=== PATIENT | male | born 1950 | race Caucasian/White ===

== ENCOUNTER 2020-06-20 18:47 | Inpatient (IN) | payer MEDICARE, SELFPAY ==
[2020-06-20] VITALS (37 sets, daily range): BP systolic 59–153; BP diastolic 42–96; PULSE 82–152; RESP 17–32; TEMP 36; O2SAT 89–100
--- NOTE | ~2020-06-20 | CT_ITS ---
EXAMINATION: CT cervical spine wo con DATE: 06/20/2020 20:09 INDICATION: Neck pain after fall TECHNIQUE: Computed tomography (CT) of the cervical spine was performed without intravenous contrast. The dose-length product was 6:30 mGy-cm. Automated exposure control and iterative reconstruction jose juan hnique were employed. COMPARISON: None FINDINGS: There is loss of disc height and endplate sclerosis at all cervical spine levels. There is degenerative anterolisthesis at C2-3 and C7-T1. There is advanced multilevel uncinate and to a lesser degree facet hypertrophy. Odontoid process within normal limits. Lung apices are normal. There is ca rotid atherosclerotic change. Thyroid gland is unremarkable. No significant paraspinal soft tissue ab normality. Craniovertebral junction is unremarkable. No acute fracture or traumatic malalignment. IMPRESSION: 1. No acute fracture. 2: Severe cervical spondylosis. Reviewed, dictated and finalized at location A. NG CAR SERVER
--- NOTE | ~2020-06-20 | US_ITS ---
EXAMINATION: US carotid duplex BI EXAM DATE: 06/22/2020 14:10 INDICATION: Syncope. TECHNIQUE: Grayscale, color and pulsed Doppler images of the cervical carotid arteries were obtained . The degree of vessel stenosis is placed in one of the following categories: normal, <50% stenosis, 50-69% stenosis, >=70% stenosis but less than near-occlusion, near-occlusion, or occlusion. Note that percent stenosis relative to normal distal artery lumen diameter is indirectly measured from velocit y measurements as described by Vicente, et al. Radiology 2003; 229:340-346. There is no prior study fo r comparison. FINDINGS: RIGHT SIDE: Right common carotid artery peak systolic velocity (PSV in cm/s): 142 Right bulb/internal carotid artery peak systolic velocity (PSV in cm/s): 114 Right internal carotid artery end diastolic velocity (EDV in cm/s): 25 Right ICA/CCA peak systolic ratio: 0.8 Right external carotid artery peak systolic velocity (PSV in cm/s): 291 Right vertebral artery antegrade flow: yes There is minimal carotid bulb plaque. Velocity and Doppler waveforms in the common and internal carotid arteries is normal. LEFT SIDE: Left common carotid artery peak systolic velocity (PSV in cm/s): 72 Left bulb/internal carotid artery peak systolic velocity (PSV in cm/s): 106 Left internal carotid artery end diastolic velocity (EDV in cm/s): 39 Left ICA/CCA peak systolic ratio: 1.5 Left external carotid artery peak systolic velocity (PSV in cm/s): 310 Left vertebral artery antegrade flow: yes There is mild to moderate carotid bulb plaque. Velocity and Doppler waveforms in the common and internal carotid arteries is normal. IMPRESSION: 1. Less than 50 percent stenosis in the right internal carotid artery. 2. Less than 50 percent stenosis in the left internal carotid artery. > Reviewed, dictated and finalized at location B. UNTS COLLECTOR
--- NOTE | ~2020-06-20 | US_ITS ---
EXAMINATION: US venous doppler [facility] DATE: 06/22/2020 14:10 INDICATION: Lower limb swelling TECHNIQUE: Napoles scale images without and with compression and Doppler images of the bilateral lower e xtremity veins were obtained. COMPARISON: None FINDINGS: The bilateral peroneal veins are not evaluated due to body habitus. The right common femoral vein, profunda femoral vein, femoral vein, popliteal vein, posterior tibial veins, and greater saphenous vein are patent. The left common femoral vein, profunda femoral vein, femoral vein, popliteal vein, posterior tibial v eins, and greater saphenous vein are patent. IMPRESSION: 1. Patent bilateral lower extremity veins. No evidence of deep venous thrombosis. Bilateral peroneal veins not evaluated due to body habitus. Reviewed, dictated and finalized at location A. BASE PROGRAMMER ANALYST IMPRESSION: 1. Patent bilateral lower extremity veins. No evidence of deep venous thrombosi s. Bilateral peroneal veins not evaluated due to body habitus.
--- NOTE | ~2020-06-20 | XR_ITS ---
EXAMINATION: XR chest 1V portable INDICATION: Shortness of breath and wheezing TECHNIQUE: Portable AP chest at 0532 hours COMPARISON: 01/01/2019 FINDINGS: A mild diffuse interstitial pattern is present. Cardiomegaly is noted. There is no pleural effusion or pneumothorax. Median sternotomy wires and mediastinal surgical clips are seen, likely fro m prior coronary artery bypass grafting. IMPRESSION: 1. Cardiomegaly with likely mild pulmonary edema. Reviewed, dictated and finalized at location A. ITIES EQUIPMENT REPAIRER
--- NOTE | ~2020-06-20 | CT_ITS ---
EXAMINATION: CT brain wo con DATE: 06/20/2020 20:08 INDICATION: Status post fall down steps. Laceration to the forehead. TECHNIQUE: Computed tomography (CT) of the head was performed without intravenous contrast. The dose- length product was 605.33 mGy-cm. The mA was adjusted according to patient size. Iterative reconstruc tion technique was employed. COMPARISON: None FINDINGS: Brain parenchymal volume is normal for age. There is a chronic left lacunar infarction of t he internal capsule. There are scattered mild periventricular and subcortical white matter changes, m ost likely related to small vessel ischemic disease (microangiopathy). No ventriculomegaly or midline shift. No acute intracranial hemorrhage, infarction, mass or mass effect. No depressed skull fractur es. Paranasal sinuses and mastoids are pneumatized. IMPRESSION: 1. No acute intracranial abnormality. 2: Chronic left lacunar infarction. 3: Chronic age-related findings. Reviewed, dictated and finalized at location A. NT DEVELOPMENT DIRECTOR
--- NOTE | ~2020-06-20 | CT_ITS ---
EXAMINATION: CTA chest PE protocol DATE: 06/20/2020 21:33 SOFTWARE MAINTENANCE ENGINEER INDICATION: Shortness of breath. Elevated d-dimer. TECHNIQUE: Computed tomographic angiography (CTA) of the chest was performed with 100 mL Omnipaque-35 0 intravenous contrast. The dose-length product was 862.29 mGy-cm. Maximum intensity projection 3D-re constructions of the aorta and other arteries were constructed by the technologist on a separate work station. COMPARISON: None. FINDINGS: Study is technically adequate without evidence for pulmonary embolism. Status post median s ternotomy for CABG. No significant pleural or pericardial effusion. There is atherosclerosis of the a ruddy without evidence for aneurysm or dissection. The upper abdomen is unremarkable. There is mild em physema. No endobronchial lesions. There is dependent atelectasis. No pneumothorax. Moderate thoracic spondylosis. No acute osseous abnormality. IMPRESSION: 1. No evidence for pulmonary embolism. No acute cardiopulmonary disease. 2: Emphysema. Reviewed, dictated and finalized at location A. WARE MAINTENANCE ENGINEER
--- NOTE | ~2020-06-20 | CT_ITS ---
EXAMINATION: CT abdomen pelvis wo con DATE: 06/20/2020 22:46 INDICATION: Abdominal pain after fall TECHNIQUE: Computed tomography (CT) of the abdomen and pelvis was performed without intravenous contr ast. The dose-length product was 1345.04 mGy-cm. Automated exposure control and iterative reconstruct ion technique were employed. COMPARISON: None. FINDINGS: There is dependent atelectasis right lower lobe. Heart size normal. No significant pleural or pericardial effusion. The liver, spleen, pancreas, adrenal glands are unremarkable. There is a hyp erdense lesion posterior aspect of the right kidney measuring approximately 10 mm, possibly a hyperde nse cyst. There is residual contrast in the kidneys and ureters. Gallbladder is present. Small fat-co ntaining umbilical hernia. Nonobstructive bowel gas pattern. Normal appendix. Bilateral fat-containin g inguinal hernias. No abnormal pelvic masses or fluid collections. There is severe lumbar spondylosi s with scoliosis. Bladder is unremarkable. IMPRESSION: 1. No acute abdominal abnormality. 2: Hyperdense lesion posterior margin of the right kidney measuring 10 mm, possibly hyperdense cysts, although correlation with ultrasound is recommended. 3: Fat-containing umbilical and bilateral inguinal hernias. Reviewed, dictated and finalized at location A. IL OFFICE MANAGER IMPRESSION: 1. No acute abdominal abnormality. 2: Hyperdense lesion posterior margin of the right kidney measuring 10 mm, poss ibly hyperdense cysts, although correlation with ultrasound is recommended. 3: Fat-containing umbilical and bilateral inguinal hernias.
--- NOTE | 2020-06-20 18:56 | PC.NURSE ---
placed on 2 lpm nc
--- NOTE | 2020-06-20 18:57 | ECG_ITS ---
Measurements Intervals [place] Rate: 131 P: CO: 0 QRS: 76 QRSD: 110 T: 9 QT: 328 QTc: 485 Interpretive Statements ATRIAL FIBRILLATION WITH RAPID VENTRICULAR RESPONSE DELAYED PRECORDIAL R/S TRANSITION BORDERLINE ST-T WAVE ABNORMALITY- INFERIOR LEADS BASELINE ARTIFACT- I, II, III, AVR, AVL, AVF, V4-V6 ABNORMAL ECG Electronically Signed On 06-20-2020 20:15:48 SCRAP COLLECTOR by Andrey Newman D.O.
[2020-06-20] MEDS: methylPREDNISolone SOD SUCC 125 MG VIAL IV PUSH (19:01)
--- NOTE | 2020-06-20 19:01 | ED.SOB ---
HPI - SOB/Dyspnea General Chief Complaint: Syncope Stated Complaint: fell down 8 steps, hematoma top of heads Time Seen by Provider: 06/20/20 18:51 Source: patient Mode of arrival: EMS Limitations: no limitations History of Present Illness HPI Narrative: Patient is a 70-year-old male brought in respiratory distress by EMS. Patient states that he fell down the stairs approximately 8 flights of stairs complaining of mild head pain otherwise denies any neck, chest, back, abdomen, pelvis, hip or any extremity pain/injury. Patient states that he has a history of COPD, not on home oxygen, was short of breath prior to his fall, patient unsure if he had a syncopal episode. Related Data Home Medications Medication Instructions Recorded Confirmed triamterene 75 1 tablet PO DAILY 03/15/19 mg-hydrochlorothiazide 50 mg tablet Allergies Allergy/AdvReac Type Severity Reaction Status Date / Time No Known Allergies Allergy Verified 06/20/20 18:58 Review of Systems Review of Systems: All systems reviewed & are unremarkable except as noted in HPI and below Constitutional: Constitutional: Denies body ache(s), Denies chills, Denies excessive sweating, Denies fatigue, Denies fever(s), Denies headache(s), Denies lethargy, Denies malaise, Denies weakness and Denies weight loss Eyes: Eyes: Denies blurry vision, Denies change in vision and Denies loss of vision ENT: Denies dizziness, Denies ear discharge, Denies headache(s), Denies lip swelling, Denies epistaxis, Denies nasal congestion, Denies neck pain, Denies throat swelling and Denies tongue swelling Cardiovascular: Cardiovascular: Denies chest pain, Denies chest pain at rest, Denies chest pain with activity, Denies diaphoresis, Denies rapid heart rate, Denies edema, Denies irregular heart rhythm, Denies lightheadedness and Denies palpitations Respiratory: Respiratory: Denies chest congestion and Denies hemoptysis Gastrointestinal: Gastrointestinal: Denies abdominal pain, Denies melena, Denies hematochezia, Denies diarrhea, Denies nausea, Denies vomiting and Denies hematemesis Musculoskeletal: Musculoskeletal: Denies abnormal gait, Denies deformity, Denies joint swelling, Denies limited range of motion, Denies neck pain and Denies numbness Neurologic: Denies Abnormal speech present, Denies abnormal gait, Denies confusion, Denies dizziness, Denies headache(s), Denies focal weakness, Denies loss of vision, Denies numbness, Denies Other visual disturbances, Denies Sensory deficit (Neuro) and Denies weakness Psychiatric: Psychiatric: Denies confusion, Denies depression, Denies auditory hallucinations, Denies homicidal ideation and Denies suicidal ideation Endocrine: Endocrine: Denies cold intolerance, Denies excessive sweating, Denies fatigue, Denies heat intolerance and Denies palpitations Hematologic/Lymphatic: Hematologic/Lymphatic: Denies easy bleeding and Denies easy bruising Allergic/Immunologic: Allergic/Immunologic: Denies lip swelling, Denies throat swelling and Denies tongue swelling PMFSH Social History Social History Gender identity (if verbalized by the patient): Male Comments Past medical history: COPD, hypertension, hyperlipidemia, coronary disease, CABG Social history: Ex-smoker, stopped years ago, no EtOH or drug use. Family history: Noncontributory Exam Const: General: cooperative, well developed, alert and awake; No confusion Orientation/consciousness: oriented to person, oriented to place, oriented to time, patient oriented x3 and No confusion Limitations: no limitations Other: Severe distress, ill-appearing HENMT: Ears: hearing grossly normal bilaterally, TM normal on the right and TM normal on the left General nose exam: Normal external nose present, Normal nares present and No nasal discharge present Mouth: Yes Normal oral and palatal mucosa present, Yes lip normal, Yes tongue normal and Yes oropharynx no
[2020-06-20] MEDS: ALBUTEROL SULFATE NEB 2.5 MG/0.5 ML INH 5 MG INHALATION (19:15)
[2020-06-20] MEDS: IPRATROPIUM BR 0.02% INH SOLN 0.5 MG/2.5 ML VIAL INHALATION (19:15)
[2020-06-20 19:20] LABS: Base Excess ABG -0.9 mEq/l (+/-2.0); Carboxyhemoglobin 0.5 % THb (0-2.0); Fractional Inspired Oxygen 24 %; HCO3 ABG 25.1 mEq/l (22.0-26.0); Methemoglobin ABG 0.3 %THb (0-1.5); Oxygen Content ABG 16.5 %vol (16.0-22.0); Oxygen Saturation ABG 96.2 % (95.0-100.0); Oxyhemoglobin 94.7 % THb (90.0-100.0); PCO2 ABG 46.7 mmHg (35.0-45.0); PO2 ABG 87.5 mmHg (80.0-100.0); PO2 FiO2 Ratio Arterial Blood 3.65 %; Reduced Hemoglobin 4.5 %THb (0-5.0); Total Hemoglobin 12.3 g/dL (12.0-18.0); pH ABG 7.348 (7.350-7.450)
[2020-06-20 19:26] LABS: Device NASAL CANNULA; Modified Allen's Test Pass; Site Drawn RIGHT RADIAL
[2020-06-20 19:56] LABS: Basophils Absolute Auto 0.1 K/mm3 (0.0-0.1); Basophils Percent Auto 0.5 % (0.2-1.2); Eosinophils Absolute Auto 1.1 K/mm3 (0-0.3); Eosinophils Percent Auto 8.5 % (0-4.4); Hemoglobin 11.9 g/dL (14.0-18.0); Immature Granulocyte Absolute 0.05 K/mm3 (0.00-0.031); Immature Granulocyte Percent A 0.4 % (0-0.5); Immature Platelet Fraction Pct 5.3 % (0.9-11.2); Lymphocytes Absolute Auto 1.01 K/mm3 (0.9-3.2); Lymphocytes Percent Auto 7.7 % (18.3-44.2); Mean Corpuscular HGB Conc 33.1 g/dl (32-36); Mean Corpuscular Hemoglobin 28.5 pg (26-34); Mean Corpuscular Volume 86.1 fl (80-100); Monocytes Absolute Auto 0.7 K/mm3 (0.1-0.6); Monocytes Percent Auto 5.1 % (2.6-8.5); Neutrophils Absolute Auto 10.3 K/mm3 (1.3-6.7); Neutrophils Percent Auto 77.8 % (45.5-73.1); Platelet Count Result 326 k/mm3 (150-375); Red Blood Count 4.18 M/mm3 (4.6-6.20); Red Cell Distribution Width 15.1 % (11.5-14.5); White Blood Count 13.2 K/mm3 (4.5-10.0)
[2020-06-20 20:06] LABS: Lactic Acid Reflex 1.9 mmol/L (0.7-2.1)
[2020-06-20 20:07] LABS: Alanine Aminotransferase 24 U/L (4-50); Albumin Level 3.9 g/dL (3.5-5.1); Alkaline Phosphatase 108 U/L (38-126); Anion Gap 8 mmol/L (8-16); Aspartate Amino Transferase 56 U/L (17-59); Bilirubin,Total 1.4 mg/dL (0.2-1.3); Blood Urea Nitrogen 9 mg/dL (9-20); Calcium 8.4 mg/dL (8.4-10.2); Carbon Dioxide 29 mmol/L (22-30); Chloride 90 mmol/L (98-107); Estimated CRCL calculation 75 ml/min; Estimated Glomerular Filt Rate > 60; Glucose 158 mg/dL (75-110); Potassium 3.7 mmol/L (3.4-5.0); Prothrombin Time 13.9 Seconds (11.1-14.7); Sodium 127 mmol/L (137-145)
[2020-06-20 20:08] LABS: Partial Thromboplastin Time 35.9 SECONDS (22.3-36.8)
[2020-06-20 20:10] LABS: D Dimer 1.71 ug/mL (<0.48)
[2020-06-20 20:29] LABS: NT Pro B Type Natriuretic Pept 299 PG/ML (5-100)
[2020-06-20] MEDS: LACTATED RINGERS 1,000 ML 999 ML IV CONT ×2 (20:44→22:14)
[2020-06-20] MEDS: TETANUS,DIPHTHERIA,AC PERTUSSIS ADULT (0.5 ML) BOOSTRIX IM (22:13)
[2020-06-20] MEDS: dilTIAZem HCl INJ 25 MG/5 ML VIAL 20 MG IV PUSH (22:13)
[2020-06-20] MEDS: ASPIRIN 325 MG ENTERIC TABLET PO (22:14)
[2020-06-21] VITALS (30 sets, daily range): BP systolic 90–169; BP diastolic 44–104; PULSE 68–104; RESP 18–28; TEMP 35.6–36.7; O2SAT 91–99; BMI 36.8
--- NOTE | 2020-06-21 | ECHO_ITS ---
Patient Info Name: Zack Dai Age: 70 years : 1950 Gender: Male Ht: 71 in Wt: 264 lbs BSA: 2.49 m2 HR: 92 bpm BP: 97 / 59 mmHg Heart Rhythm: Sinus Rhythm Exam Date: 06/21/2020 11:10 AM Exam Location: [facility] [place] Patient Status: Inpatient Admit Date: 06/20/2020 Staff Ordering Physician: Tory Bhat DO Catering Barista: Christian Curiel RDCS, RT Attending Provider: Javier Bai MD Referring Physician: Home SHAIKH; Exam Type: CA echo dop color flow w con Study Info Indications I50.9 - Heart failure, unspecified R55 - Syncope and collapse Complete two-dimensional, color flow and Doppler transthoracic echocardiogram is performed with contrast to opacify the left ventricle and to improve the deliniation of the left ventricle endocardial borders. Summary 1. Left ventricular chamber dimension is normal. 2. Left ventricular systolic function is normal, estimated at 60-65%. 3. There is mildly increased left ventricular wall thickness. 4. The left ventricular diastolic function is grade I diastolic dysfunction. 5. Left atrial chamber dimension is mildly enlarged. 6. Right atrial chamber dimension is mildly enlarged. 7. There is mild tricuspid valve regurgitation. 8. Mild pulmonary hypertension, estimated pulmonary arterial systolic pressure is 40 mmHg. Left Ventricle Left ventricular chamber dimension is normal. Left ventricular systolic function is normal, estimated at 60-65%. There is mildly increased left ventricular wall thickness. The left ventricular diastolic function is grade I diastolic dysfunction. Right Ventricle Right ventricular chamber dimension is normal. Right ventricular systolic function is normal. Left Atria Left atrial chamber dimension is mildly enlarged. Right Atria Right atrial chamber dimension is mildly enlarged. Atrial Septum Intact interatrial septum visualized by color flow imaging. Aortic Valve The aortic valve is trileaflet. There is moderate aortic valve sclerosis. There is no aortic valve stenosis. There is trace aortic valve regurgitation. Pulmonic Valve The pulmonic valve is normal. There is no pulmonic valve stenosis. There is trace pulmonic regurgitation. Mitral Valve The mitral valve has calcified annulus. There is no mitral valve stenosis. There is trace mitral valve regurgitation. Tricuspid Valve The tricuspid valve leaflets are normal. There is no significant tricuspid valve stenosis. There is mild tricuspid valve regurgitation. Mild pulmonary hypertension, estimated pulmonary arterial systolic pressure is 40 mmHg. Pericardium/Pleural The pericardium appears normal. There is no pericardial effusion. Inferior Vena Cava Dilated inferior vena cava with >50% collapse upon inspiration consistent with elevated right atrial pressure, 10 mmHg. Aorta The aortic root size at the sinus of Valsalva is normal. The prox ascending aorta size is normal. Left Ventricular Outflow Tract Name Value Normal LVOT 2D LVOT Diameter 2.02 cm LVOT Doppler LVOT Peak Gradient 3 mmHg LVOT Mean Gradient
[2020-06-21 01:00] LABS: Troponin I 0.193 ng/mL (0.000-0.034)
[2020-06-21] MEDS: LEVALBUTEROL NEB 1.25 MG/3 ML 0.63 MG INHALATION (02:07)
[2020-06-21] MEDS: IPRATROPIUM BR 0.02% INH SOLN 0.5 MG/2.5 ML VIAL INHALATION ×4 (02:07→20:24)
--- NOTE | 2020-06-21 02:09 | ADMGEN ---
This patient, Zack Dai, was admitted to IMU Room 200-01. Patient/family oriented to hospital policies and general routines including ID bracelet, bed and alarms, visiting hours, pain management, procedures, bathroom and other care routines, personal items, smoking policy, room service/diet, and visiting hours. Information on how to activate the Rapid Response Team has been discussed. Patient/Family are encouraged to report perceived risks to care and to ask questions if they do not understand what they are told or what they should do.
--- NOTE | 2020-06-21 03:57 | PM.IMHP ---
H&P: HPI History of Present Illness Date/Time: 06/21/20 03:57 Chief Complaint: Syncope Narrative: Zack Dai is a 70 year old male with a past medical history of coronary artery disease, atrial fibrillation, COPD and systolic CHF who presented to the ER after syncopal event resulting in fall down 6-8 stairs. He states that he lives in a split-level home. He can see his TV from the top of the stairs in the living room. He was leaning against the leads at the top of the stairs when he suddenly lost consciousness. He did not have any prodrome. He reports that he woke up quickly after the syncopal event and he was lying at the bottom of the stairs in his head had went through the drywall. He denies any headache or visual changes. He reports that prior to the syncopal event had been feeling ill for approximately 10 days. Reports that he received is 1st COVID vaccine approximately 10 or 11 days ago. That day or the next day he began feeling short of breath in attributed it to the vaccine. He had markedly increased wheezing. He had increased cough that was productive of white to yellow sputum production. He denied any fevers or chills. He denied chest pain, palpitations or orthopnea. He does have chronic lower extremity swelling in his swelling has been relatively stable. His swelling is currently just to his feet and ankles. He reports the swelling is significantly improved compared to his swelling following his bypass procedure. He reports that over the last 6 months he has gained approximately 25 lb. He has been trying to stay home so that he did not get exposed to COVID-19. The patient reports that he uses p.r.n. of uterine all inhalers at home that have not been helping his symptoms. He is not on any long-acting controller medications. He used to follow with Dr. Schultz but has not seen him in many years. At the time of his CABG he was evaluated by the contracting engineer at [facility] and he was instructed to finish what inhalers he had and follow-up with them as outpatient. He failed to follow-up with the contracting engineer. He is now interested in establishing care with pulmonology at this facility since his primary care physician is nearby. The patient reports that he was tried on CPAP in the past and he did not tolerate it. He states that he is supposed to follow-up with Dr. Hill today for routine follow-up regarding his heart disease. Review of Systems Review of Systems: Narrative: 12 systems were reviewed with pertinent positives and negatives per HPI. Except as documented in the HPI, all other systems were reviewed and are negative. [facility] Past Medical History Medical History Alcohol abuse Chronic hypercapnic respiratory failure COPD (chronic obstructive pulmonary disease) Coronary artery disease Followed by Dr. Hill Essential hypertension History of ventricular fibrillation VFib arrest during cardiac catheterization December 2018 and subsequent cardiogenic shock cardiac in her aortic balloon pump emergent echo demonstrating EF of 35% Hypercholesterolemia Paroxysmal atrial fibrillation STEMI (ST elevation myocardial infarction) Tobacco use Surgical History Surgical History (Updated 06/21/20 @ 04:07 by Tory Bhat DO) History of cardiac catheterization December 2018: High-grade stenosis of left main coronary, moderate to severe diffuse disease of proximal to mid LAD, high-grade eccentric ulcerated plaque in the mid segment of the dominant RCA. During catheterization the patient went into VFib arrest much shock x1 Hx of CABG CABG with [place] to LAD, left radial artery to OM 2, reverse saphenous vein graft 2 p.o. be of RCA performed by Dr. Worrell December 2019 at [facility]. Family History Family History (Updated 06/21/20 @ 05:07 by Tory Bhat DO) Mother Bone cancer Father Alcoholism Sibling Healthy adult male 62 years old Social History Social History (
[2020-06-21 04:52] LABS: Hematocrit 32.9 % (42.0-52.0); Hemoglobin 10.9 g/dL (14.0-18.0); Mean Corpuscular HGB Conc 33.1 g/dl (32-36); Mean Corpuscular Hemoglobin 28.7 pg (26-34); Mean Corpuscular Volume 86.6 fl (80-100); Platelet Count Result 307 k/mm3 (150-375); Red Cell Distribution Width 15.2 % (11.5-14.5); White Blood Count 11.5 K/mm3 (4.5-10.0)
[2020-06-21 05:07] LABS: Anion Gap 4 mmol/L (8-16); Blood Urea Nitrogen 8 mg/dL (9-20); Calcium 8.1 mg/dL (8.4-10.2); Carbon Dioxide 32 mmol/L (22-30); Chloride 93 mmol/L (98-107); Estimated CRCL calculation 91 ml/min; Estimated Glomerular Filt Rate > 60; Glucose 171 mg/dL (75-110); Magnesium 1.8 mg/dL (1.6-2.3); Potassium 4.3 mmol/L (3.4-5.0); Sodium 129 mmol/L (137-145)
[2020-06-21 05:25] LABS: Troponin I 0.261 ng/mL (0.000-0.034)
[2020-06-21] MEDS: methylPREDNISolone SOD SUCC 125 MG VIAL 60 MG IV PUSH ×2 (06:32→14:06)
[2020-06-21] MEDS: LOSARTAN POTASSIUM 25 MG TABLET PO (09:36)
[2020-06-21] MEDS: ATORVASTATIN 40 MG TABLET PO (09:36)
[2020-06-21] MEDS: METOPROLOL SUCCINATE EXT REL 25 MG TABCR PO (09:37)
[2020-06-21] MEDS: POTASSIUM CHLORIDE 20 MEQ TABLET.ER PO (09:37)
[2020-06-21] MEDS: PERFLUTREN LIPID MICROSPHERES 1.5 ML VIAL DILUTED TO 10 ML TOTAL VOLUME IV PUSH (11:26)
--- NOTE | 2020-06-21 13:56 | PM.CNCAR ---
Assessment and Plan Assessment and plan (1) Syncope: Qualifiers: Syncope type: unspecified Qualified Code(s): R55 - Syncope and collapse Code(s): R55 - Syncope and collapse Status: Acute Assessment and Plan: Will continue telemetry monitoring. 2D echocardiogram Doppler is ordered and will be reviewed. Orthostatic blood pressure be ordered. Will repeat EKG now he is in sinus rhythm. Certainly his symptoms are worrisome for arrhythmogenic in etiology. May very well need electrophysiology evaluation (2) Elevated troponin: Code(s): R77.8 - Other specified abnormalities of plasma proteins Status: Acute Assessment and Plan: Uncertain if this is related to type 2 infarction if either from the etiology of his syncope or from his atrial fibrillation with rapid ventricular response but regardless his troponin does continue rise. Repeated EKG as well as a troponin now. Will keep him NPO after midnight for a coronary angiogram/graft tomorrow. (3) Atrial fibrillation with RVR: Code(s): I48.91 - Unspecified atrial fibrillation Status: Resolved Assessment and Plan: In sinus rhythm at this point. He does have a chads Vasc score which would support long-term anticoagulation. Given his syncopal episodes though I am hesitant to start him on anticoagulation at this point till his syncope is further clarified. Furosemide 20 mg IV x1 (4) Head injury, acute: Qualifiers: Encounter type: initial encounter Qualified Code(s): S09.90XA - Unspecified injury of head, initial encounter Code(s): S09.90XA - Unspecified injury of head, initial encounter Status: Acute (5) CAD (coronary artery disease): Code(s): I25.10 - Atherosclerotic heart disease of [place] coronary artery without angina pectoris Status: Acute Assessment and Plan: History 3 vessel CABG. Will start aspirin 81 mg per day. Continue statin, beta-rosita. (6) Chronic obstructive pulmonary disease with (acute) exacerbation: Code(s): J44.1 - Chronic obstructive pulmonary disease with (acute) exacerbation Status: Acute Assessment and Plan: Will consult pulmonology (7) Hyponatremia: Code(s): E87.1 - Hypo-osmolality and hyponatremia Status: Acute Assessment and Plan: Repeat basic metabolic panel tomorrow (8) Hypomagnesemia: Code(s): E83.42 - Hypomagnesemia Status: Acute Assessment and Plan: Will give 2 g of IV magnesium x1 (9) Hyperlipidemia: Code(s): E78.5 - Hyperlipidemia, unspecified Status: Acute Assessment and Plan: Continue statin (10) Essential hypertension: Code(s): I10 - Essential (primary) hypertension Status: Acute Assessment and Plan: Continue losartan and metoprolol (11) Ischemic cardiomyopathy: Code(s): I25.5 - Ischemic cardiomyopathy Status: Acute Assessment and Plan: Repeat 2D echocardiogram Doppler History of Present Illness History of Present Illness Consult date/time: 06/21/20 13:56 Requesting physician: Tory Bhat DO Consult reason: atrial fibrillation and Other (Syncope) Reason For Visit: Acute Respiratory Failure with Hypoxia, Narrative: Date of service 06/21/2020 History: Patient is 70-year-old male has history of multivessel CAD. He has a history of ST-elevation myocardial infarction successfully resuscitated VF cardiac arrest in the setting of acute [place]. He also had a CABG x3 with a [place] to the LAD, radial artery graft to OM2 and SVG to are PL. He did have postoperative atrial fibrillation requiring cardioversion. This was in 2019. Ejection fraction is last estimated between 45 and 50%. Had last evaluation he was taken off of his Eliquis. He was supposed to see Dr. Hill today but he did not make that appointment because he passed out and was hospitalized. Patient came to the hospital following a syncopal episode. He li
--- NOTE | 2020-06-21 14:10 | ECG_ITS ---
Measurements Intervals [place] Rate: 95 P: 74 [place]: 219 QRS: 74 QRSD: 101 T: 53 QT: 374 QTc: 471 Interpretive Statements SINUS RHYTHM WITH FIRST DEGREE AV BLOCK VENTRICULAR PREMATURE COMPLEX BASELINE ARTIFACT- I, II, III, AVR, AVL, AVF, V4-V5 ABNORMAL ECG Electronically Signed On 06-21-2020 15:44:23 [employer] CAR[employer] by Andrey Newman D.O.
[2020-06-21] MEDS: FUROSEMIDE INJ 40 MG/4 ML VIAL 20 MG IV PUSH (14:24)
[2020-06-21] MEDS: MAGNESIUM SULF 2 GM/WATER 50ML 2 GM/50 ML BAG IVPB (14:24)
--- NOTE | 2020-06-21 14:37 | PM.IMPN ---
Progress Note: A&P Assessment and Plan (1) Syncope: Qualifiers: Syncope type: unspecified Qualified Code(s): R55 - Syncope and collapse Code(s): R55 - Syncope and collapse Status: Acute Assessment and Plan: on caridac telemetry. hx of vfib arrest during cardiac catheterization in the past in dec 2018, cardiogenic shock needig aortic balloon pump emergent echo demonstrating EF of 35% at that time. troponins elevated suggestive of NSTEMI. cardiology on board for further workup. CTA negative for PE. (2) Head injury, acute: Qualifiers: Encounter type: initial encounter Qualified Code(s): S09.90XA - Unspecified injury of head, initial encounter Code(s): S09.90XA - Unspecified injury of head, initial encounter Status: Acute Assessment and Plan: ct head negative for any internal injury. continue to monitor. (3) Fall down stairs: Qualifiers: Encounter type: initial encounter Qualified Code(s): W10.8XXA - Fall (on) (from) other stairs and steps, initial encounter Code(s): W10.8XXA - Fall (on) (from) other stairs and steps, initial encounter Status: Acute Assessment and Plan: likely from syncope as delineated above. (4) Atrial fibrillation with RVR: Code(s): I48.91 - Unspecified atrial fibrillation Status: Resolved Assessment and Plan: spontaneously resolved with one dose of cardizem. curretly in nsr (5) Chronic obstructive pulmonary disease with (acute) exacerbation: Code(s): J44.1 - Chronic obstructive pulmonary disease with (acute) exacerbation Status: Acute Assessment and Plan: steroid. also with acute exaceration. on solumedrol and duonebs. pulmonary consutled. spoke with Dr. Trammell. (6) Elevated troponin: Code(s): R77.8 - Other specified abnormalities of plasma proteins Status: Acute Assessment and Plan: serial CE reviewed. going for cardiac cath in am. (7) Hyponatremia: Code(s): E87.1 - Hypo-osmolality and hyponatremia Status: Acute Assessment and Plan: mild, stable. continue to monitor. (8) Chronic hypercapnic respiratory failure: Code(s): J96.12 - Chronic respiratory failure with hypercapnia Status: Acute Assessment and Plan: continue oxygen supplementation. (9) CAD (coronary artery disease): Code(s): I25.10 - Atherosclerotic heart disease of [place] coronary artery without angina pectoris Status: Acute Assessment and Plan: s/p CABG in 2019 (10) Essential hypertension: Code(s): I10 - Essential (primary) hypertension Status: Acute (11) Hyperlipidemia: Code(s): E78.5 - Hyperlipidemia, unspecified Status: Acute Subjective Date/time seen: 06/21/20 14:37 Interval history: no overnight events. he feels okay. he fell and has been falling quite often since past few weeks now. fall suggestive of syncope. no chest pain. has underlying hx of COPD. no previous workup for sleep apnea. Review of Systems Constitutional: Constitutional: Reports fatigue, Reports lethargy and Reports weakness Eyes: Eyes: Denies blurry vision and Denies photophobia ENT: Denies nasal congestion and Denies nasal discharge Cardiovascular: Cardiovascular: Denies chest pain, Denies diaphoresis, Denies leg edema, Denies lightheadedness and Denies palpitations Respiratory: Respiratory: Denies cough, Denies hemoptysis and Reports dyspnea Gastrointestinal: Gastrointestinal: Denies abdominal pain, Denies constipation, Denies diarrhea, Denies nausea and Denies vomiting Genitourinary: Genitourinary: Denies dysuria and Denies urinary frequency Musculoskeletal: Musculoskeletal: Denies back pain and Denies neck pain Integumentary/Breasts: Skin/Breast: Denies dry skin and Denies rash Neurologic: Denies Abnormal speech present and Denies confusion Psychiatric: Psychiatric: Denies anxiety and Denies behavioral
[2020-06-21 15:16] LABS: Troponin I 0.205 ng/mL (0.000-0.034)
--- NOTE | 2020-06-21 16:53 | PM.CNPUL ---
Assessment and Plan Assessment and plan (1) Chronic obstructive pulmonary disease with (acute) exacerbation: Code(s): J44.1 - Chronic obstructive pulmonary disease with (acute) exacerbation Status: Acute Assessment and Plan: Patient with H/O tobacco use and carries a diagnosis of COPD and has mild paraseptal emphysema on his CT scan of the chest this admission. Currently patient has improved on Solu-Medrol, leave albuterol, ipratropium, ceftriaxone and azithromycin. Patient had minimal hypercarbia on his blood gas. CT angiogram was negative for PE I will change his Solu-Medrol to 40 IV q.6, I will continue his leave albuterol and ipratropium nebulizers at q.6 hours, I will continue azithromycin at this point for tracheobronchitis (no evidence of pneumonia on CTA). . Patient scheduled to have cardiac cath on 06/22/20. Will follow with you History of Present Illness History of Present Illness Consult date: 06/21/20 Requesting physician: Javier Bai MD Reason for consult: COPD Chief complaint: Acute Respiratory Failure with Hypoxia, Narrative: This is a new pulmonary consult for COPD exacerbation. This is a 70-year-old man with a history of coronary artery disease status post CABG, COPD, hypertension, paroxysmal atrial fibrillation Who presented to the emergency room on 06/20/2020 with syncope And AFib with rapid ventricular response. Patient tells me that he has been more short of breath over the last month with intermittent wheezes, change in his phlegm color from from white to yellow, increasing dyspnea on exertion such that he now can only walk about 30 ft. He has also noted increased swelling of the lower extremities. He denies any fever or chills at this point. P patient's serum bicarb was 29 and patient had a blood gas on 1 L nasal cannula with a blood gas of 7.35/47/87. Patient had a CT angiogram of the chest that was negative for pulmonary embolism or any acute pulmonary disease. He did have mild paraseptal emphysema in the apices. Patient was noted to be wheezing and was treated for a COPD exacerbation with bronchodilators, steroids, antibiotics. Patient's troponins peaked at 0.261 and he is scheduled for an cardiac angiogram on 06/22/2020. Regarding patient's COPD patient has a history of tobacco use from -2018 at 1 pack per day, 52 pack years. Patient denies secondhand smoke exposure. 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 Patient tells me he was diagnosed with COPD approximately 30 years ago and has been on inhalers off and on since then. I have no PFTs at this time. Patient did have a CT angiogram of the chest this admission on 06/20/2020 that demonstrated mild paraseptal emphysema. Patient was on Advair and Spiriva up until 1 year ago when he self can't discontinued those because he was feeling better. He has continued to take his albuterol anywhere from 0 to 4 times a day p.r.n. for shortness of breath. Summary 1. Left ventricular chamber dimension is normal. 2. Left ventricular systolic function is normal, estimated at 60-65%. 3. There is mildly increased left ventricular wall thickness. 4. The left ventricular diastolic function is grade I diastolic dysfunction. 5. Left atrial chamber dimension is mildly enlarged. 6. Right atrial chamber dimension is mildly enlarged. 7. There is mild tricuspid valve regurgitation. 8. Mild pulmonary hypertension, estimated pulmonary arterial systolic pressure is 40 mmHg. 06/21 Patient states that he has improved with current treatment and states that he is now 50% back to normal. Patient has continued inspiratory and expiratory wheezes on exam today. Patient is on 2 L nasal cannula saturations 97%. Review of Systems Review of Systems: All systems reviewed & are unremarkable except as noted in HPI and below Eyes: Eyes: Reports no additional eye
[2020-06-21] MEDS: methylPREDNISolone SOD SUCC 40 MG VIAL IV PUSH ×2 (18:11→23:02)
[2020-06-21 18:39] LABS: Creatinine Urine 56.8 mg/dL
[2020-06-21 18:40] LABS: Sodium Urine Random 12 meq/L
[2020-06-22] VITALS (27 sets, daily range): BP systolic 77–167; BP diastolic 45–73; PULSE 78–100; RESP 18–24; TEMP 36.1–36.6; O2SAT 92–98
[2020-06-22] MEDS: IPRATROPIUM BR 0.02% INH SOLN 0.5 MG/2.5 ML VIAL INHALATION ×4 (02:32→21:08)
[2020-06-22 04:52] LABS: Basophils Percent Auto 0.1 % (0.2-1.2); Hematocrit 32.1 % (42.0-52.0); Hemoglobin 10.3 g/dL (14.0-18.0); Immature Granulocyte Absolute 0.09 K/mm3 (0.00-0.031); Immature Granulocyte Percent A 0.6 % (0-0.5); Lymphocytes Absolute Auto 0.77 K/mm3 (0.9-3.2); Lymphocytes Percent Auto 4.9 % (18.3-44.2); Mean Corpuscular HGB Conc 32.1 g/dl (32-36); Mean Corpuscular Hemoglobin 27.8 pg (26-34); Mean Corpuscular Volume 86.8 fl (80-100); Mean Platelet Volume 10.2 fl (7.4-10.4); Monocytes Absolute Auto 0.6 K/mm3 (0.1-0.6); Monocytes Percent Auto 3.5 % (2.6-8.5); Neutrophils Absolute Auto 14.4 K/mm3 (1.3-6.7); Neutrophils Percent Auto 90.9 % (45.5-73.1); Platelet Count Result 355 k/mm3 (150-375); Red Cell Distribution Width 15.4 % (11.5-14.5); White Blood Count 15.8 K/mm3 (4.5-10.0)
[2020-06-22 05:27] LABS: Anion Gap 8 mmol/L (8-16); Blood Urea Nitrogen 14 mg/dL (9-20); Calcium 8.4 mg/dL (8.4-10.2); Carbon Dioxide 29 mmol/L (22-30); Chloride 91 mmol/L (98-107); Estimated CRCL calculation 91 ml/min; Estimated Glomerular Filt Rate > 60; Glucose 154 mg/dL (75-110); Sodium 128 mmol/L (137-145)
[2020-06-22] MEDS: methylPREDNISolone SOD SUCC 40 MG VIAL IV PUSH ×4 (06:04→23:52)
[2020-06-22] MEDS: POTASSIUM CHLORIDE 20 MEQ TABLET.ER PO (08:31)
[2020-06-22] MEDS: ASPIRIN 81 MG ENTERIC TABLET PO (08:31)
[2020-06-22] MEDS: METOPROLOL SUCCINATE EXT REL 25 MG TABCR PO (08:32)
[2020-06-22] MEDS: ATORVASTATIN 40 MG TABLET PO (08:32)
[2020-06-22] MEDS: LOSARTAN POTASSIUM 25 MG TABLET PO (08:32)
--- NOTE | 2020-06-22 10:34 | PM.PNPUL ---
Progress Note: A&P Assessment and Plan (1) Chronic obstructive pulmonary disease with (acute) exacerbation: Code(s): J44.1 - Chronic obstructive pulmonary disease with (acute) exacerbation Status: Acute Assessment and Plan: 06/21 Patient with H/O tobacco use (52 PY) and carries a diagnosis of COPD and has mild paraseptal emphysema on his CTA scan of the chest on 06/20/2020, no PE. Baseline LEE at 30 feet, self DC advair and spireva 1 year ago and takes rescue albuterol 3-4 X day. Currently admitted with syncope, Afib/RVR and COPD exacerbation and patient has improved on Solu-Medrol, levlbuterol, ipratropium, ceftriaxone and azithromycin. Patient had minimal hypercarbia on his blood gas (1 L nasal cannula with a blood gas of 7.35/47/87). BNP 299. D dimer 1.[address] angiogram was negative for PE. I will change his Solu-Medrol to 40 IV q.6, I will continue his levalbuterol and ipratropium nebulizers at q.6 hours, I will continue azithromycin at this point for tracheobronchitis (no evidence of pneumonia on CTA). Patient with H/O CABG and positive trop (peak 2.61) scheduled to have cardiac cath on 06/22/20. 06/22 Continue Solu-Medrol to 40 IV q.6, levalbuterol 1.25 mg Q 6 neb (AFIB/RVR on admit) and ipratropium 0.5 mg nebulizers at q.6 hours, I will continue azithromycin (day 3). Possible cath later today. Will follow with you Subjective Date/time seen: 06/22/20 10:34 Interval history: Narrative: This is a new pulmonary consult for COPD exacerbation. This is a 70-year-old man with a history of coronary artery disease status post CABG, COPD, hypertension, paroxysmal atrial fibrillation Who presented to the emergency room on 06/20/2020 with syncope And AFib with rapid ventricular response. Patient tells me that he has been more short of breath over the last month with intermittent wheezes, change in his phlegm color from from white to yellow, increasing dyspnea on exertion such that he now can only walk about 30 ft. He has also noted increased swelling of the lower extremities. He denies any fever or chills at this point. P patient's serum bicarb was 29 and patient had a blood gas on 1 L nasal cannula with a blood gas of 7.35/47/87. Patient had a CT angiogram of the chest that was negative for pulmonary embolism or any acute pulmonary disease. He did have mild paraseptal emphysema in the apices. Patient was noted to be wheezing and was treated for a COPD exacerbation with bronchodilators, solumedrol, ceftriaxone and azithro antibiotics. Patient's troponins peaked at 0.261 and he is scheduled for an cardiac angiogram on 06/22/2020. Regarding patient's COPD patient has a history of tobacco use from -2018 at 1 pack per day, 52 pack years. Patient denies secondhand smoke exposure. 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 Patient tells me he was diagnosed with COPD approximately 30 years ago and has been on inhalers off and on since then. I have no PFTs at this time. Patient did have a CT angiogram of the chest this admission on 06/20/2020 that demonstrated mild paraseptal emphysema. Patient was on Advair and Spiriva up until 1 year ago when he self can't discontinued those because he was feeling better. He has continued to take his albuterol anywhere from 0 to 4 times a day p.r.n. for shortness of breath. Echo 06/21/20 Summary 1. Left ventricular chamber dimension is normal. 2. Left ventricular systolic function is normal, estimated at 60-65%. 3. There is mildly increased left ventricular wall thickness. 4. The left ventricular diastolic function is grade I diastolic dysfunction. 5. Left atrial chamber dimension is mildly enlarged. 6. Right atrial chamber dimension is mildly enlarged. 7. There is mild tricuspid valve regurgitation. 8. Mild pulmonary hypertension, estimated pulmonary arterial systolic pressure is 40 mmHg.
--- NOTE | 2020-06-22 13:31 | PM.IMPN ---
Progress Note: A&P Assessment and Plan (1) Syncope: Qualifiers: Syncope type: unspecified Qualified Code(s): R55 - Syncope and collapse Code(s): R55 - Syncope and collapse Status: Acute Assessment and Plan: on caridac telemetry. hx of vfib arrest during cardiac catheterization in the past in dec 2018, cardiogenic shock needig aortic balloon pump emergent echo demonstrating EF of 35% at that time. troponins elevated suggestive of NSTEMI. cardiology on board for further workup. CTA negative for PE. Patient has no syncopal episode over the last 24 hours. Workup is in progress. Cardiology evaluation noted (2) Head injury, acute: Qualifiers: Encounter type: initial encounter Qualified Code(s): S09.90XA - Unspecified injury of head, initial encounter Code(s): S09.90XA - Unspecified injury of head, initial encounter Status: Acute Assessment and Plan: ct head negative for any internal injury. continue to monitor. No headache at present time. (3) Fall down stairs: Qualifiers: Encounter type: initial encounter Qualified Code(s): W10.8XXA - Fall (on) (from) other stairs and steps, initial encounter Code(s): W10.8XXA - Fall (on) (from) other stairs and steps, initial encounter Status: Acute Assessment and Plan: likely from syncope as delineated above. (4) Atrial fibrillation with RVR: Code(s): I48.91 - Unspecified atrial fibrillation Status: Resolved Assessment and Plan: spontaneously resolved with one dose of cardizem. gaurav in nsr (5) Chronic obstructive pulmonary disease with (acute) exacerbation: Code(s): J44.1 - Chronic obstructive pulmonary disease with (acute) exacerbation Status: Acute Assessment and Plan: steroid. also with acute exaceration. on solumedrol and duonebs. pulmonary consutled. spoke with Dr. Trammell. (6) Elevated troponin: Code(s): R77.8 - Other specified abnormalities of plasma proteins Status: Acute Assessment and Plan: serial CE reviewed. going for cardiac cath in am. (7) Hyponatremia: Code(s): E87.1 - Hypo-osmolality and hyponatremia Status: Acute Assessment and Plan: mild, stable. continue to monitor. (8) Chronic hypercapnic respiratory failure: Code(s): J96.12 - Chronic respiratory failure with hypercapnia Status: Acute Assessment and Plan: continue oxygen supplementation. (9) CAD (coronary artery disease): Code(s): I25.10 - Atherosclerotic heart disease of [place] coronary artery without angina pectoris Status: Acute Assessment and Plan: s/p CABG in 2019 (10) Essential hypertension: Code(s): I10 - Essential (primary) hypertension Status: Acute (11) Hyperlipidemia: Code(s): E78.5 - Hyperlipidemia, unspecified Status: Acute Additional Plan Will continue current plan of care and treatment. Will high WBC most likely secondary to steroid. Will monitor sodium. Cardiology and Pulmonary on consult. Subjective Date/time seen: 06/22/20 13:31 Interval history: Patient was seen during the morning rounds today. No syncopal episode. No shortness of breath or chest pain. Mood stable. Review of Systems Constitutional: Constitutional: Reports fatigue, Reports lethargy and Reports weakness Eyes: Eyes: Denies blurry vision and Denies photophobia ENT: Denies nasal congestion, Denies nasal discharge and Denies neck pain Cardiovascular: Cardiovascular: Denies chest pain, Denies diaphoresis, Denies leg edema, Denies lightheadedness, Denies palpitations and Reports dyspnea Respiratory: Respiratory: Denies cough, Denies hemoptysis and Reports dyspnea Gastrointestinal: Gastrointestinal: Denies abdominal pain, Denies constipation, Denies diarrhea, Denies nausea and Denies vomiting Genitourinary: Genitourinary: Denies dysuria and Denies urinary frequency [place]
--- NOTE | 2020-06-22 16:26 | PM.PNCARD ---
Progress Note: A&P Assessment and Plan (1) Syncope: Qualifiers: Syncope type: unspecified Qualified Code(s): R55 - Syncope and collapse Code(s): R55 - Syncope and collapse Status: Acute Assessment and Plan: Will continue telemetry monitoring. Certainly his symptoms are worrisome for arrhythmogenic in etiology. May very well need electrophysiology evaluation (2) Elevated troponin: Code(s): R77.8 - Other specified abnormalities of plasma proteins Status: Acute Assessment and Plan: Uncertain if this is related to type 2 infarction if either from the etiology of his syncope or from his atrial fibrillation with rapid ventricular response but regardless his troponin does continue rise. Will keep him NPO after midnight for a coronary angiogram/graft tomorrow. (3) Atrial fibrillation with RVR: Code(s): I48.91 - Unspecified atrial fibrillation Status: Resolved Assessment and Plan: In sinus rhythm at this point. He does have a chads Vasc score which would support long-term anticoagulation. Given his syncopal episodes though I am hesitant to start him on anticoagulation at this point till his syncope is further clarified. (4) Head injury, acute: Qualifiers: Encounter type: initial encounter Qualified Code(s): S09.90XA - Unspecified injury of head, initial encounter Code(s): S09.90XA - Unspecified injury of head, initial encounter Status: Acute (5) CAD (coronary artery disease): Code(s): I25.10 - Atherosclerotic heart disease of [place] coronary artery without angina pectoris Status: Acute Assessment and Plan: History 3 vessel CABG. Will start aspirin 81 mg per day. Continue statin, beta-rosita. (6) Chronic obstructive pulmonary disease with (acute) exacerbation: Code(s): J44.1 - Chronic obstructive pulmonary disease with (acute) exacerbation Status: Acute Assessment and Plan: on steroids and less wheezy today (7) Hyponatremia: Code(s): E87.1 - Hypo-osmolality and hyponatremia Status: Acute Assessment and Plan: Repeat basic metabolic panel tomorrow (8) Hypomagnesemia: Code(s): E83.42 - Hypomagnesemia Status: Acute Assessment and Plan: replaced (9) Hyperlipidemia: Code(s): E78.5 - Hyperlipidemia, unspecified Status: Acute Assessment and Plan: Continue statin (10) Essential hypertension: Code(s): I10 - Essential (primary) hypertension Status: Acute Assessment and Plan: Continue losartan and metoprolol (11) Ischemic cardiomyopathy: Code(s): I25.5 - Ischemic cardiomyopathy Status: Acute Assessment and Plan: Normalized ejection fraction He does have some lower extremity swelling. Will give him a dose of IV furosemide 40 mg IV x1 Subjective Date/time seen: 06/22/20 16:26 Interval history: 70-year-old with a syncopal episode and non-STEMI / COPD exacerbation Date of service 06/22/2020: Unfortunately catheterization Could not be performed today. He is breathing better. Less wheezy. No chest pain or shortness breath no syncopal episodes. Swelling persists Review of Systems Review of Systems: All systems reviewed & are unremarkable except as noted in HPI and below Constitutional: Constitutional: Denies fatigue, Denies headache(s) and Denies weakness Eyes: Eyes: Denies blurry vision ENT: Reports Normal hearing present, Denies headache(s), Denies lip swelling and Denies neck pain Cardiovascular: Cardiovascular: Denies chest pain, Reports pedal edema, Reports leg edema, Reports dyspnea and Reports dyspnea on exertion Respiratory: Respiratory: Reports dyspnea, Reports dyspnea on exertion and Reports wheezing Gastrointestinal: Gastrointestinal: Denies abdominal pain Genitourinary: Genitourinary: Denies dysuria and Denies urinary frequency Musculoskeletal: Musculoskeletal: Den
[2020-06-22] MEDS: FUROSEMIDE INJ 40 MG/4 ML VIAL IV PUSH (17:12)
[2020-06-22] MEDS: ALPRAZolam (*CRX) 0.5 MG TABLET PO (23:51)
[2020-06-23] VITALS (47 sets, daily range): BP systolic 98–164; BP diastolic 53–85; PULSE 18–101; RESP 12–95; TEMP 36.1–36.5; O2SAT 90–100
[2020-06-23] MEDS: IPRATROPIUM BR 0.02% INH SOLN 0.5 MG/2.5 ML VIAL INHALATION ×4 (02:51→20:21)
[2020-06-23 04:46] LABS: Hematocrit 31.5 % (42.0-52.0); Hemoglobin 10.3 g/dL (14.0-18.0); Mean Corpuscular HGB Conc 32.7 g/dl (32-36); Mean Corpuscular Hemoglobin 28.5 pg (26-34); Mean Corpuscular Volume 87.3 fl (80-100); Mean Platelet Volume 9.7 fl (7.4-10.4); Platelet Count Result 329 k/mm3 (150-375); Red Blood Count 3.61 M/mm3 (4.6-6.20); Red Cell Distribution Width 15.4 % (11.5-14.5); White Blood Count 11.6 K/mm3 (4.5-10.0)
[2020-06-23 05:00] LABS: Anion Gap 2 mmol/L (8-16); Blood Urea Nitrogen 15 mg/dL (9-20); Calcium 8.1 mg/dL (8.4-10.2); Carbon Dioxide 35 mmol/L (22-30); Chloride 93 mmol/L (98-107); Estimated CRCL calculation 91 ml/min; Estimated Glomerular Filt Rate > 60; Glucose 180 mg/dL (75-110); Potassium 4.4 mmol/L (3.4-5.0); Sodium 130 mmol/L (137-145)
[2020-06-23] MEDS: methylPREDNISolone SOD SUCC 40 MG VIAL IV PUSH (05:41)
[2020-06-23] MEDS: ATORVASTATIN 40 MG TABLET PO (08:41)
[2020-06-23] MEDS: POTASSIUM CHLORIDE 20 MEQ TABLET.ER PO (08:41)
[2020-06-23] MEDS: METOPROLOL SUCCINATE EXT REL 25 MG TABCR PO (08:42)
[2020-06-23] MEDS: LOSARTAN POTASSIUM 25 MG TABLET PO (08:42)
[2020-06-23] MEDS: ASPIRIN 81 MG ENTERIC TABLET PO (08:42)
--- NOTE | 2020-06-23 09:19 | WPDMODSED ---
Moderate Sedation Note-Pt Data Patient Data Diagnosis: Multivessel coronary artery disease with surgical revascularization in 2019 Recent onset of recurrent syncopal episodes Elevated troponin Present Complaint: Recurrent syncope Procedure to be performed/Plan: Left heart catheterization with coronary angiography and bypass graft angiography Allergies Allergy/AdvReac Type Severity Reaction Status Date / Time No Known Allergies Allergy Verified 06/20/20 18:58 Home Medications Medication Instructions Recorded Confirmed Type atorvastatin 40 mg PO DAILY 06/21/20 06/21/20 History furosemide 40 mg PO DAILY 06/21/20 06/21/20 History losartan 25 mg PO DAILY 06/21/20 06/21/20 History metoprolol succinate 25 mg PO DAILY 06/21/20 06/21/20 History potassium chloride 20 meq PO DAILY 06/21/20 06/21/20 History Current Medications: Active Medications Aspirin (Aspirin 81 Mg Enteric Tablet) 81 mg PO QAM [facility] Last Admin: 06/23/20 08:42 Dose: 81 mg Documented by: Atorvastatin Calcium (Atorvastatin 40 Mg Tablet) 40 mg PO DAILY [facility] Last Admin: 06/23/20 08:41 Dose: 40 mg Documented by: Azithromycin (Zithromax) 500 mg in 250 mls @ 250 mls/hr IVPB Q24H [facility] Last Infusion: 06/22/20 21:30 Dose: Infused Documented by: Ipratropium [place] (Ipratropium Br 0.02% Inh Soln 0.5 Mg/2.5 Ml Vial) 0.5 mg INHALATION Q6HRT [facility] Last Admin: 06/23/20 07:26 Dose: 0.5 mg Documented by: Levalbuterol HCl (Levalbuterol Neb 1.25 Mg/0.5 Ml) 1.25 mg INHALATION Q6HRT [facility] Last Admin: 06/23/20 07:26 Dose: 1.25 mg Documented by: Losartan Potassium (Losartan Potassium 25 Mg Tablet) 25 mg PO DAILY [facility] Last Admin: 06/23/20 08:42 Dose: 25 mg Documented by: Methylprednisolone Sodium Succinate (Methylprednisolone Sod Succ 40 Mg Vial) 40 mg IV PUSH Q6HR [facility] Last Admin: 06/23/20 05:41 Dose: 40 mg Documented by: Metoprolol Succinate (Metoprolol Succinate Ext Rel 25 Mg Tabcr) 25 mg PO DAILY [facility] Last Admin: 06/23/20 08:42 Dose: 25 mg Documented by: Potassium Chloride (Potassium Chloride 20 Meq Tablet.Er) 20 meq PO DAILY@0800 [facility] Last Admin: 06/23/20 08:41 Dose: 20 meq Documented by: Sedation/Anesthesia: No previous sedation/anesthesia problems (including family history). [facility] Past Medical History Medical History Alcohol abuse Chronic hypercapnic respiratory failure COPD (chronic obstructive pulmonary disease) Coronary artery disease Followed by Dr. Hill Essential hypertension History of ventricular fibrillation VFib arrest during cardiac catheterization December 2018 and subsequent cardiogenic shock cardiac in her aortic balloon pump emergent echo demonstrating EF of 35% Hypercholesterolemia Paroxysmal atrial fibrillation STEMI (ST elevation myocardial infarction) Tobacco use Surgical History Surgical History (Updated 06/21/20 @ 14:47 by Javier Bai MD) History of cardiac catheterization December 2018: High-grade stenosis of left main coronary, moderate to severe diffuse disease of proximal to mid LAD, high-grade eccentric ulcerated plaque in the mid segment of the dominant RCA. During catheterization the patient went into VFib arrest much shock x1 Hx of CABG CABG with [place] to LAD, left radial artery to OM 2, reverse saphenous vein graft 2 p.o. be of RCA performed by Dr. Worrell December 2019 at [facility]. Family History Family History Mother Bone cancer Father Alcoholism Sibling Healthy adult male 62 years old Social History Social History Social History: 48 years. They have 4 children who reportedly healthy. He is a former smoker at least a pack of cigarettes per day for about 42 years. He used to drink alcohol quite heavily and drink at least a 10 pack a day until his heart attack in December of 2018. He denies any illicit substance use. 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
--- NOTE | 2020-06-23 09:40 | PM.PNPUL ---
Progress Note: A&P Assessment and Plan (1) Chronic obstructive pulmonary disease with (acute) exacerbation: Code(s): J44.1 - Chronic obstructive pulmonary disease with (acute) exacerbation Status: Acute Assessment and Plan: 06/21 Patient with H/O tobacco use (52 PY) and carries a diagnosis of COPD and has mild paraseptal emphysema on his CTA scan of the chest on 06/20/2020, no PE. Baseline LEE at 30 feet, self DC advair and spireva 1 year ago and takes rescue albuterol 3-4 X day. Currently admitted with syncope, Afib/RVR and COPD exacerbation and patient has improved on Solu-Medrol, levlbuterol, ipratropium, ceftriaxone and azithromycin. Patient had minimal hypercarbia on his blood gas (1 L nasal cannula with a blood gas of 7.35/47/87). BNP 299. D dimer 1.[address] angiogram was negative for PE. I will change his Solu-Medrol to 40 IV q.6, I will continue his levalbuterol and ipratropium nebulizers at q.6 hours, I will continue azithromycin at this point for tracheobronchitis (no evidence of pneumonia on CTA). Patient with H/O CABG and positive trop (peak 2.61) scheduled to have cardiac cath on 06/22/20. 06/22 Continue Solu-Medrol to 40 IV q.6, levalbuterol 1.25 mg Q 6 neb (AFIB/RVR on admit) and ipratropium 0.5 mg nebulizers at q.6 hours, I will continue azithromycin (day 3). Possible cath later today. 06/23 Patient improved. States he is breathing better than he has in the last 1.5 years. No wheezes today. DC solumedrol and placed on prednisone 50. On 1 L NC with sats 93%. For cardiac cath later today. Will do apnea link on room air tonight to assess nocturnal oxygention. Day 4 of 5 chikiithro. Will follow with you Subjective Date/time seen: 06/23/20 09:40 Interval history: Narrative: This is a new pulmonary consult for COPD exacerbation. This is a 70-year-old man with a history of coronary artery disease status post CABG, COPD, hypertension, paroxysmal atrial fibrillation Who presented to the emergency room on 06/20/2020 with syncope And AFib with rapid ventricular response. Patient tells me that he has been more short of breath over the last month with intermittent wheezes, change in his phlegm color from from white to yellow, increasing dyspnea on exertion such that he now can only walk about 30 ft. He has also noted increased swelling of the lower extremities. He denies any fever or chills at this point. P patient's serum bicarb was 29 and patient had a blood gas on 1 L nasal cannula with a blood gas of 7.35/47/87. Patient had a CT angiogram of the chest that was negative for pulmonary embolism or any acute pulmonary disease. He did have mild paraseptal emphysema in the apices. Patient was noted to be wheezing and was treated for a COPD exacerbation with bronchodilators, solumedrol, ceftriaxone and azithro antibiotics. Patient's troponins peaked at 0.261 and he is scheduled for an cardiac angiogram on 06/22/2020. Regarding patient's COPD patient has a history of tobacco use from -2018 at 1 pack per day, 52 pack years. Patient denies secondhand smoke exposure. 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 Patient tells me he was diagnosed with COPD approximately 30 years ago and has been on inhalers off and on since then. I have no PFTs at this time. Patient did have a CT angiogram of the chest this admission on 06/20/2020 that demonstrated mild paraseptal emphysema. Patient was on Advair and Spiriva up until 1 year ago when he self can't discontinued those because he was feeling better. He has continued to take his albuterol anywhere from 0 to 4 times a day p.r.n. for shortness of breath. Echo 06/21/20 Summary 1. Left ventricular chamber dimension is normal. 2. Left ventricular systolic function is normal, estimated at 60-65%. 3. There is mildly increased left ventricular wall thickness. 4. The left ventricular diastolic f
--- NOTE | 2020-06-23 10:44 | WPDCARDPROC ---
Cardiac Cath Procedure Note Date of procedure:: 06/23/20 Performing physician:: John Ocampo MD Indication:: history of coronary disease previous bypass graft syncope elevation of troponin/non STEMI Brief clinical history:: this is a 70-year-old patient apparently with a history of coronary disease who underwent bypass grafting and 2019 at another hospital in the setting of acute coronary syndrome. The records/details of this are not available to me at the time of this dictation. He entered this hospital with syncopal episodes and a troponin rise recommending follow-up angiography and left heart catheterization to be done. Procedure Procedure performed:: Left ventriculogram coronary angiogram saphenous vein graft angiogram radial artery graft angiogram non selective ARNALDO angiogram Sedation/Medication given:: fentanyl 50 mg Versed 2 mg case start time 9:44 a.m. case end time 10:40 a.m. sedation provided by Priyanka Glover RN, trained observer Access site:: right femoral artery Estimated blood loss:: 20-30 cc Procedure note:: patient was brought to the cardiac catheterization lab the postabsorptive state the right femoral triangle was prepared and draped in the usual fashion. The femoral artery was punctured and a 5 [place] vascular sheath was placed. After this left heart catheterization took place. The iliofemoral system appeared to be significantly calcified and diseased and so all catheter exchanges were done over the J tipped guidewire in the central aorta. A 5 [place] angled pigtail catheter was used to measure left-sided hemodynamics and injected LV g in the SEARS projection. After this I used a 5 [place] FL4 catheter to attempt to engage inject the left coronary ostium. This was unsuccessful. Could not identify an open left coronary ostium. I then used a 5 [place] AL1 and then a 5 [place] al 3 catheter to attempt to engage left main. These were unsuccessful at the end of the attempt with the AL 3 there was some contrast staining in the left coronary cusp and further attempts to cannulate the left coronary artery were not performed. I then used a 5 [place] JR4 catheter to engage and inject the [place] right coronary artery as well as the saphenous vein graft to the right coronary and the radial graft to the circumflex. After this I attempted to engage the left subclavian artery and study the ARNALDO using the JR4 catheter this was unsuccessful. I was able to use a ARNALDO catheter to identify the origin of the subclavian and a wooly wire was used to advance out and to the left arm. Despite the wooly wire being out this far the ARNALDO catheter would not easily advance into the subclavian. I then injected the subclavian artery and identified severe complex disease in the ostium of that vessel as detailed below and 1 could see non selectively the ARNALDO graft appears to be patent. Following this the procedure was terminated. The sheath was flushed patient was taken to the holding area for sheath removal and recovery from this procedure. Findings:: Hemodynamics: Central aortic pressure is 114/74 left ventricle 114 over 5 end-diastolic of 12 there is no gradient on pullback across the aortic valve. Left ventricle: The LV is normal in size all segments contract vigorously the global ejection fraction appears to be 65-70% without significant regional wall motion abnormalities. Left main coronary artery is stated above is presumably closed. 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 The main trunk of the right coronary artery itself is 100% occluded distally. Saphenous vein graft to the right coronary artery is large in caliber widely patent its distal anastomosis to the distal RCA is patent and provides [place] 3 flow into this vessel. Radial artery graft to the circumflex is medium caliber segment of radi
--- NOTE | 2020-06-23 11:13 | PM.PNCARD ---
Progress Note: A&P Additional Plan 70-year-old man with: Multivessel coronary artery disease as detailed above and as noted in the cardiac catheterization report. 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 The patient has very good left ventricular systolic function. Exact etiology of syncope is remains unclear although could be ischemically mediated. He will need to be transferred to a higher level of care where either surgery or stenting of his left subclavian artery can be considered /performed. Most likely this is amenable to percutaneous revascularization. These services are not available at this facility. John Ocampo MD [facility] Subjective Date/time seen: date of service:06/23/20 11:13 Interval history: 70-year-old with a syncopal episode and non-STEMI / COPD exacerbation Date of service 06/22/2020: Unfortunately catheterization Could not be performed today. He is breathing better. Less wheezy. No chest pain or shortness breath no syncopal episodes. Swelling persists Date of service 06/23/2020: Catheterization performed today was a challenging procedure. Patient has significant peripheral vascular disease and significant disease of the thoracic aorta. The left coronary artery appears to be occluded. The right coronary artery is distally occluded. 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 Saphenous vein graft to the RCA, radial graft to the circumflex and ARNALDO to the LAD appeared to be patent. 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 Left ventricular systolic function is normal. Exam Narrative: Exam Narrative: Alert oriented. Appears stated age Const: General: comfortable and no acute distress; No confusion Orientation/consciousness: No confusion HENMT: General nose exam: Normal nares present Other: Abrasion noted on his scalp and forehead Eyes: Sclera: sclerae normal Neck: Neck: supple and no JVD Chest: Other: No reproducible chest wall pain to palpation Resp: Auscultation: clear to auscultation bilaterally Cardio: Rate: regular rate Rhythm: regular rhythm Skin: General skin exam: normal color Neuro: General: No confusion Cranial nerves: Yes Normal hearing present Cognition (Neuro): normal cognition Speech: normal speech Extrem: General: edema (1+ bilateral extremity) Psych: Mental Status: mental status grossly normal Objective Data Vital Signs Vital Signs: Vital Signs - 24 hr 06/22/20 11:31 06/22/20 11:43 06/22/20 12:00 Temperature 36.6 C Pulse Rate 90 94 91 Respiratory Rate 24 H 22 H Blood Pressure 139/60 Pulse Oximetry 94 06/22/20 14:00 06/22/20 14:06 06/22/20 14:16 Temperature Pulse Rate 94 84 86 Respiratory Rate 18 18 Blood Pressure Pulse Oximetry 06/22/20 16:00 06/22/20 18:00 06/22/20 20:00 Temperature 36.3 C L 36.1 C L Pulse Rate 78 100 90 Respiratory Rate 18 20 Blood Pressure 124/60 93/55 L Pulse Oximetry 98 92 06/22/20 20:13 06/22/20 20:14 06/22/20 21:10 Temperature Pulse Rate 94 Respiratory Rate 18 Blood Pressure 77/56 L 83/45 L Pulse Oximetry 06/22/20 21:12 06/22/20 21:21 06/22/20 22:00 Temperature Pulse Rate 96 93 Respiratory Rate 18 Blood Pressure Pulse Oximetry 92 06/22/20 23:38 06/23/20 00:00 06/23/20 02:00 Temperature 36.1 C L Pulse Rate 95 90 90 Respiratory Rate 20 Blood Pressure 125/52 L Pulse Oximetry 93 93 06/23/20 02:52 06/23/20 04:00 06/23/20 05:48 Temperature 36.1 C L Pulse Rate 88 82 92 Respiratory Rate 18 20 Blood Pressure 138/59 L Pulse Oximetry 93 06/23/20 07:27 06/23/20 08:00 06/23/20 08:37 Temperature 36.4 C Pulse Rate 88 93 Respiratory Rate 18 12 Blood Pressure 129/69 105/61 Pulse Oximetry 94 06/23/20 08:4
--- NOTE | 2020-06-23 11:31 | PM.IMPN ---
Progress Note: A&P Assessment and Plan (1) Syncope: Qualifiers: Syncope type: unspecified Qualified Code(s): R55 - Syncope and collapse Code(s): R55 - Syncope and collapse Status: Acute Assessment and Plan: on caridac telemetry. hx of vfib arrest during cardiac catheterization in the past in dec 2018, cardiogenic shock needig aortic balloon pump emergent echo demonstrating EF of 35% at that time. troponins elevated suggestive of NSTEMI. cardiology on board for further workup. CTA negative for PE. Patient has no syncopal episode over the last 24 hours. Workup is in progress. Cardiology evaluation noted. Scheduled for catheterization today (2) Head injury, acute: Qualifiers: Encounter type: initial encounter Qualified Code(s): S09.90XA - Unspecified injury of head, initial encounter Code(s): S09.90XA - Unspecified injury of head, initial encounter Status: Acute Assessment and Plan: ct head negative for any internal injury. continue to monitor. No headache at present time. (3) Fall down stairs: Qualifiers: Encounter type: initial encounter Qualified Code(s): W10.8XXA - Fall (on) (from) other stairs and steps, initial encounter Code(s): W10.8XXA - Fall (on) (from) other stairs and steps, initial encounter Status: Acute Assessment and Plan: likely from syncope as delineated above. (4) Atrial fibrillation with RVR: Code(s): I48.91 - Unspecified atrial fibrillation Status: Resolved Assessment and Plan: spontaneously resolved with one dose of cardizem. guarav in nsr (5) Chronic obstructive pulmonary disease with (acute) exacerbation: Code(s): J44.1 - Chronic obstructive pulmonary disease with (acute) exacerbation Status: Acute Assessment and Plan: steroid. also with acute exaceration. on solumedrol and duonebs. pulmonary consutled. spoke with Dr. Trammell. (6) Elevated troponin: Code(s): R77.8 - Other specified abnormalities of plasma proteins Status: Acute Assessment and Plan: serial CE reviewed. going for cardiac cath in am. (7) Hyponatremia: Code(s): E87.1 - Hypo-osmolality and hyponatremia Status: Acute Assessment and Plan: mild, stable. continue to monitor. (8) Chronic hypercapnic respiratory failure: Code(s): J96.12 - Chronic respiratory failure with hypercapnia Status: Acute Assessment and Plan: continue oxygen supplementation. (9) CAD (coronary artery disease): Code(s): I25.10 - Atherosclerotic heart disease of [place] coronary artery without angina pectoris Status: Acute Assessment and Plan: s/p CABG in 2019 (10) Essential hypertension: Code(s): I10 - Essential (primary) hypertension Status: Acute (11) Hyperlipidemia: Code(s): E78.5 - Hyperlipidemia, unspecified Status: Acute Additional Plan Will continue current plan of care and treatment. Will high WBC most likely secondary to steroid. Will monitor sodium. Cardiology and Pulmonary on consults noted. Scheduled for cardiac catheterization today Subjective Date/time seen: 06/23/20 11:31 Interval history: Patient was seen during the morning rounds today. No syncopal episode. No shortness of breath or chest pain. Mood stable. No new complaints. Review of Systems Constitutional: Constitutional: Reports fatigue, Reports lethargy and Reports weakness Eyes: Eyes: Denies blurry vision and Denies photophobia ENT: Denies nasal congestion, Denies nasal discharge and Denies neck pain Cardiovascular: Cardiovascular: Denies chest pain, Denies diaphoresis, Denies leg edema, Denies lightheadedness, Denies palpitations and Reports dyspnea Respiratory: Respiratory: Denies cough, Denies hemoptysis and Reports dyspnea Gastrointestinal: Gastrointestinal: Denies abdominal pain, Denies constipation, Denies diarrhea, Denies nause
--- NOTE | 2020-06-23 13:27 | PCRCNOTE ---
pt not in room
[2020-06-23] MEDS: predniSONE 10 MG TABLET 50 MG PO (14:21)
[2020-06-23] MEDS: SODIUM CHLORIDE 0.9% IV 1,000 ML 125 ML IV CONT (14:22)
[2020-06-24] VITALS (30 sets, daily range): BP systolic 97–148; BP diastolic 47–71; PULSE 83–110; RESP 12–20; TEMP 35.9–36.6; O2SAT 90–98
[2020-06-24] MEDS: IPRATROPIUM BR 0.02% INH SOLN 0.5 MG/2.5 ML VIAL INHALATION ×4 (01:58→19:50)
[2020-06-24 05:28] LABS: Potassium 4.2 mmol/L (3.4-5.0)
[2020-06-24] MEDS: LOSARTAN POTASSIUM 25 MG TABLET PO (09:10)
[2020-06-24] MEDS: ASPIRIN 81 MG ENTERIC TABLET PO (09:10)
[2020-06-24] MEDS: METOPROLOL SUCCINATE EXT REL 25 MG TABCR PO (09:11)
[2020-06-24] MEDS: ATORVASTATIN 40 MG TABLET PO (09:12)
[2020-06-24] MEDS: POTASSIUM CHLORIDE 20 MEQ TABLET.ER PO (09:12)
[2020-06-24] MEDS: predniSONE 10 MG TABLET 50 MG PO (09:12)
--- NOTE | 2020-06-24 09:55 | PM.IMPN ---
Progress Note: A&P Assessment and Plan (1) Syncope: Qualifiers: Syncope type: unspecified Qualified Code(s): R55 - Syncope and collapse Code(s): R55 - Syncope and collapse Status: Acute Assessment and Plan: on caridac telemetry. hx of vfib arrest during cardiac catheterization in the past in dec 2018, cardiogenic shock needig aortic balloon pump emergent echo demonstrating EF of 35% at that time. troponins elevated suggestive of NSTEMI. cardiology on board for further workup. CTA negative for PE. Patient has no syncopal episode over the last 24 hours. Workup is in progress. Cardiology evaluation noted. Had catheterization yesterday. Feeling slightly better. Will continue current treatment. (2) Head injury, acute: Qualifiers: Encounter type: initial encounter Qualified Code(s): S09.90XA - Unspecified injury of head, initial encounter Code(s): S09.90XA - Unspecified injury of head, initial encounter Status: Acute Assessment and Plan: ct head negative for any internal injury. continue to monitor. No headache at present time. (3) Fall down stairs: Qualifiers: Encounter type: initial encounter Qualified Code(s): W10.8XXA - Fall (on) (from) other stairs and steps, initial encounter Code(s): W10.8XXA - Fall (on) (from) other stairs and steps, initial encounter Status: Acute Assessment and Plan: likely from syncope as delineated above. (4) Atrial fibrillation with RVR: Code(s): I48.91 - Unspecified atrial fibrillation Status: Resolved Assessment and Plan: spontaneously resolved with one dose of cardizem. gaurav in nsr (5) Chronic obstructive pulmonary disease with (acute) exacerbation: Code(s): J44.1 - Chronic obstructive pulmonary disease with (acute) exacerbation Status: Acute Assessment and Plan: steroid. also with acute exaceration. on solumedrol and duonebs. pulmonary consutled. spoke with Dr. Trammell. (6) Elevated troponin: Code(s): R77.8 - Other specified abnormalities of plasma proteins Status: Acute Assessment and Plan: serial CE reviewed. going for cardiac cath in am. (7) Hyponatremia: Code(s): E87.1 - Hypo-osmolality and hyponatremia Status: Acute Assessment and Plan: mild, stable. continue to monitor. (8) Chronic hypercapnic respiratory failure: Code(s): J96.12 - Chronic respiratory failure with hypercapnia Status: Acute Assessment and Plan: continue oxygen supplementation. (9) CAD (coronary artery disease): Code(s): I25.10 - Atherosclerotic heart disease of [place] coronary artery without angina pectoris Status: Acute Assessment and Plan: s/p CABG in 2019 (10) Essential hypertension: Code(s): I10 - Essential (primary) hypertension Status: Acute (11) Hyperlipidemia: Code(s): E78.5 - Hyperlipidemia, unspecified Status: Acute Additional Plan Will continue current plan of care and treatment. Will high WBC most likely secondary to steroid. Will monitor sodium. Cardiology and Pulmonary on consults noted. Head Cath yesterday. Feeling slightly better today. Will continue current treatment. Possible discharge tomorrow morning. Subjective Date/time seen: 06/24/20 09:55 Interval history: Patient was seen during the morning rounds today. Patient had cardiac catheterization yesterday. Feeling slightly better today. No syncopal episode. No shortness of breath or chest pain. Mood stable. No new complaints. Review of Systems Constitutional: Constitutional: Reports fatigue, Reports lethargy and Reports weakness Eyes: Eyes: Denies blurry vision and Denies photophobia ENT: Denies nasal congestion, Denies nasal discharge and Denies neck pain Cardiovascular: Cardiovascular: Denies chest pain, Denies diaphoresis, Denies leg edema, Denies lightheadedness, Denies palpitatio
--- NOTE | 2020-06-24 18:11 | PM.PNPUL ---
Progress Note: A&P Assessment and Plan (1) Chronic obstructive pulmonary disease with (acute) exacerbation: Code(s): J44.1 - Chronic obstructive pulmonary disease with (acute) exacerbation Status: Acute Assessment and Plan: 06/21 Patient with hx of tobacco use (52 PY) and carries a diagnosis of COPD and has mild paraseptal emphysema on his CTA scan of the chest on 06/20/2020, no PE. Baseline LEE at 30 feet, self DC advair and spiriva 1 year ago and takes rescue albuterol 3-4 X day. Currently admitted with syncope, Afib/RVR and COPD exacerbation and patient has improved on Solu-Medrol, levalbuterol, ipratropium, ceftriaxone and azithromycin. Patient had minimal hypercarbia on his blood gas (1 L nasal cannula with a blood gas of 7.35/47/87). BNP 299. D dimer 1.[address] angiogram was negative for PE. Decreased Solu-Medrol to 40 IV q.6, continued his levalbuterol and ipratropium nebulizers at q.6 hours, continue azithromycin at this point for tracheobronchitis (no evidence of pneumonia on CTA). Patient with H/O CABG and positive trop (peak 2.61), cath later this week. 06/22 Continue Solu-Medrol to 40 IV q.6, levalbuterol 1.25 mg Q 6 neb (AFIB/RVR on admit) and ipratropium 0.5 mg nebulizers at q.6 hours, continue azithromycin (day 3). Possible cath 06/23. 06/23 Patient improved. States he is breathing better than he has in the last 1.5 years. No wheezes today. DC solumedrol and placed on prednisone 50. On 1 L NC with sats 93%. Cardiac cath today 06/23. 06/24 He did not complete the ApneaLink last night. Day 5 of 5 azithro. I stopped it. He has been weaned off O2. May be able to go home tomorrow. Would like a nebulizer and bronchodilators at home. Home O2 study tomorrow am. ApneaLink tonight. Subjective Date/time seen: 06/24/20 18:11 Zack Dai is a 70 year old man who is seen in follow up for COPD exacerbation. He is off O2, feels more short of breath since O2 was removed, with increased cough and yellow sputum. He was not on O2 at home. He feels great after using the nebulizer, and is interested in having this at home. He did not have the ApneaLink last night. Will order for tonight. He has a history of coronary artery disease status post CABG, COPD, hypertension, paroxysmal atrial fibrillation, presented to the emergency room on 06/20/2020 with syncope and AFib with rapid ventricular response. He has had increased shortness of breath over the last month with intermittent wheezes, change in his phlegm color from white to yellow, increasing dyspnea on exertion such that he now can only walk about 30 ft. He has also noted increased swelling of the lower extremities. He denies any fever or chills at this point. P patient's serum bicarb was 29 and patient had a blood gas on 1 L nasal cannula with a blood gas of 7.35/47/87. Patient had a CT angiogram of the chest that was negative for pulmonary embolism or any acute pulmonary disease. He did have mild paraseptal emphysema in the apices. Patient was noted to be wheezing and was treated for a COPD exacerbation with bronchodilators, solumedrol, ceftriaxone and azithro antibiotics. Patient's troponins peaked at 0.261, had a cardiac cath 06/23/2020. COPD : tobacco [id number], 1 pack per day, 52 pack years. No secondhand smoke exposure. 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 Patient tells me he was diagnosed with COPD approximately 30 years ago and has been on inhalers off and on since then. I have no PFTs at this time. Patient did have a CT angiogram of the chest this admission on 06/20/2020 that demonstrated mild paraseptal emphysema. Patient was on Advair and Spiriva up until 1 year ago when he self can't discontinued those because he was feeling better. He has continued to take his albuterol anywhere from 0 to 4 times a day p.r.n.
[2020-06-24] MEDS: BUDESONIDE/FORMOTEROL (*SP) 160-4.5 MCG 6 GM INH 2 PUFF INHALATION (19:50)
[2020-06-25] VITALS (14 sets, daily range): BP systolic 154–164; BP diastolic 64–82; PULSE 84–105; RESP 18–22; TEMP 36.4–36.6; O2SAT 93–97
--- NOTE | 2020-06-25 03:14 | PC.NURSE ---
Daylight Savings Time For Daylight Savings Time Ending in the Fall - Clocks are moved back. For Daylight Savings Time Beginning in the Spring - Clocks are moved ahead. For [facility], the time of change occurs at 0200 hrs. Time is taken from the industrial economics teacher. This entry on the patient's chart recognizes the change in time reflected during documentation. Example: 2 entries for vital signs may be charted for 0200 hrs.
[2020-06-25] MEDS: IPRATROPIUM BR 0.02% INH SOLN 0.5 MG/2.5 ML VIAL INHALATION (07:35)
[2020-06-25] MEDS: BUDESONIDE/FORMOTEROL (*SP) 160-4.5 MCG 6 GM INH 2 PUFF INHALATION (07:37)
[2020-06-25] MEDS: POTASSIUM CHLORIDE 20 MEQ TABLET.ER PO (08:02)
[2020-06-25] MEDS: ATORVASTATIN 40 MG TABLET PO (08:03)
[2020-06-25] MEDS: METOPROLOL SUCCINATE EXT REL 25 MG TABCR PO (08:03)
[2020-06-25] MEDS: predniSONE 10 MG TABLET 50 MG PO (08:04)
[2020-06-25] MEDS: ASPIRIN 81 MG ENTERIC TABLET PO (08:05)
[2020-06-25] MEDS: LOSARTAN POTASSIUM 25 MG TABLET PO (08:05)
--- NOTE | 2020-06-25 10:28 | PCRCNOTE ---
Home O2 evaluation done. Pt does not qualify for home O2
--- NOTE | 2020-06-25 10:31 | PM.DS ---
DS: Admitting Diagnosis Admitting Diagnosis Admitting Diagnosis: Syncope Atrial fibrillation COPD Elevated troponin DS: Discharge Diagnosis Discharge Diagnosis (1) Syncope: Qualifiers: Syncope type: unspecified Qualified Code(s): R55 - Syncope and collapse Code(s): R55 - Syncope and collapse Status: Acute Assessment and Plan: on caridac telemetry. hx of vfib arrest during cardiac catheterization in the past in dec 2018, cardiogenic shock needig aortic balloon pump emergent echo demonstrating EF of 35% at that time. troponins elevated suggestive of NSTEMI. cardiology on board for further workup. CTA negative for PE. Patient has no syncopal episode over the last 24 hours. Workup is in progress. Cardiology evaluation noted. Had catheterization yesterday. Feeling slightly better. Will continue current treatment. (2) Head injury, acute: Qualifiers: Encounter type: initial encounter Qualified Code(s): S09.90XA - Unspecified injury of head, initial encounter Code(s): S09.90XA - Unspecified injury of head, initial encounter Status: Acute Assessment and Plan: ct head negative for any internal injury. continue to monitor. No headache at present time. (3) Fall down stairs: Qualifiers: Encounter type: initial encounter Qualified Code(s): W10.8XXA - Fall (on) (from) other stairs and steps, initial encounter Code(s): W10.8XXA - Fall (on) (from) other stairs and steps, initial encounter Status: Acute Assessment and Plan: likely from syncope as delineated above. (4) Atrial fibrillation with RVR: Code(s): I48.91 - Unspecified atrial fibrillation Status: Resolved Assessment and Plan: spontaneously resolved with one dose of cardizem. curretly in nsr (5) Chronic obstructive pulmonary disease with (acute) exacerbation: Code(s): J44.1 - Chronic obstructive pulmonary disease with (acute) exacerbation Status: Acute Assessment and Plan: steroid. also with acute exaceration. on solumedrol and duonebs. pulmonary consutled. spoke with Dr. Trammell. (6) Elevated troponin: Code(s): R77.8 - Other specified abnormalities of plasma proteins Status: Acute Assessment and Plan: serial CE reviewed. going for cardiac cath in am. (7) Hyponatremia: Code(s): E87.1 - Hypo-osmolality and hyponatremia Status: Acute Assessment and Plan: mild, stable. continue to monitor. (8) Chronic hypercapnic respiratory failure: Code(s): J96.12 - Chronic respiratory failure with hypercapnia Status: Acute Assessment and Plan: continue oxygen supplementation. (9) CAD (coronary artery disease): Code(s): I25.10 - Atherosclerotic heart disease of [place] coronary artery without angina pectoris Status: Acute Assessment and Plan: s/p CABG in 2019 (10) Essential hypertension: Code(s): I10 - Essential (primary) hypertension Status: Acute (11) Hyperlipidemia: Code(s): E78.5 - Hyperlipidemia, unspecified Status: Acute DS: Summary Hospital Course Reason for hospitalization: Syncope Atrial fibrillation COPD Elevated troponin Hospital Course: 70 years old male with history of atrial fibrillation COPD was admitted with complaint of having a syncopal episode. Workup with cardiology was done because of elevated troponin. Medications were adjusted. Patient denied having syncopal episode during the stay in the hospital. Today patient is feeling better so patient was discharged home in stable condition. Follow-up scheduled with cardiology primary care physician and Pulmonary outpatient. Time spent discussing smoking cessation with patient: 3 to 10 minutes Status at Discharge Cognitive/behavioral status at discharge: Stable Functional status at discharge: independent ambulation Overall status at discharge: patient is back to baseline Time Spen
--- NOTE | 2020-06-25 12:03 | PM.PNPUL ---
Progress Note: A&P Assessment and Plan (1) Chronic obstructive pulmonary disease with (acute) exacerbation: Code(s): J44.1 - Chronic obstructive pulmonary disease with (acute) exacerbation Status: Acute Assessment and Plan: 06/21 Patient with hx of tobacco use (52 PY) and carries a diagnosis of COPD and has mild paraseptal emphysema on his CTA scan of the chest on 06/20/2020, no PE. Baseline LEE at 30 feet, self DC Advair and Spiriva 1 year ago and takes rescue albuterol 3-4 X day. Currently admitted with syncope, Afib/RVR and COPD exacerbation and patient has improved on Solu-Medrol, levalbuterol, ipratropium, ceftriaxone and azithromycin. Patient had minimal hypercarbia on his blood gas (1 L nasal cannula with a blood gas of 7.35/47/87). BNP 299. D dimer 1.[address] angiogram was negative for PE. Decreased Solu-Medrol to 40 IV q.6, continued his levalbuterol and ipratropium nebulizers at q.6 hours, continue azithromycin at this point for tracheobronchitis (no evidence of pneumonia on CTA). Patient with H/O CABG and positive trop (peak 2.61), cath later this week. 06/22 Continue Solu-Medrol to 40 IV q.6, levalbuterol 1.25 mg Q 6 neb (AFIB/RVR on admit) and ipratropium 0.5 mg nebulizers at q.6 hours, continue azithromycin (day 3). Possible cath 06/23. 06/23 Patient improved. States he is breathing better than he has in the last 1.5 years. No wheezes today. DC solumedrol and placed on prednisone 50. On 1 L NC with sats 93%. Cardiac cath today 06/23. 06/24 He did not complete the ApneaLink last night. Day 5 of 5 azithro. I stopped it. He has been weaned off O2. May be able to go home tomorrow. Would like a nebulizer and bronchodilators at home. Home O2 study tomorrow am. ApneaLink tonight. 06/25 Stable, ready to go, see us in the office in 2 weeks, COPd and ANGEL LUIS. Subjective Date/time seen: 06/25/20 12:03 Admitted Jun 20 Zack Dai and his Ashley are here, and he feels ready to go home. His ApneaLink showed AHI 20 and desaturation to 73%. He needs a sleep evaluation after discharge. Treating his sleep apnea will help with peripheral edema, wt management. His CAD is stable, has good EF. Home O2 evaluation showed no need for supplemental O2 with rest or exertion. He sleeps in a recliner at home, which may be mitigating some of his severity of ANGEL LUIS. Wants a nebulizer for home use. Admitted with COPD exacerbation. He has a history of coronary artery disease status post CABG, COPD, hypertension, paroxysmal atrial fibrillation, presented to the emergency room on 06/20/2020 with syncope and AFib with rapid ventricular response. He has had increased shortness of breath over the last month with intermittent wheezes, change in his phlegm color from white to yellow, increasing dyspnea on exertion such that he now can only walk about 30 ft. He has also noted increased swelling of the lower extremities. He denies any fever or chills at this point. P patient's serum bicarb was 29 and patient had a blood gas on 1 L nasal cannula with a blood gas of 7.35/47/87. Patient had a CT angiogram of the chest that was negative for pulmonary embolism or any acute pulmonary disease. He did have mild paraseptal emphysema in the apices. Patient was noted to be wheezing and was treated for a COPD exacerbation with bronchodilators, solumedrol, ceftriaxone and azithro antibiotics. Patient's troponins peaked at 0.261, had a cardiac cath 06/23/2020. COPD : tobacco [id number], 1 pack per day, 52 pack years. No secondhand smoke exposure. 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 Patient tells me he was diagnosed with COPD approximately 30 years ago and has been on inhalers off and on since then. I have no PFTs at this time. Patient did have a CT angiogram of the chest this admission on 06/20/2020 that
--- NOTE | 2020-06-26 09:13 | PCRCNOTE ---
NEBULIZER SET UP SENT TO [facility]
== END 2020-06-25 12:30 | disposition home or self-care (01) | DRG 281 ==
LOC: ANHED 22:02 → ANHIMU 06-21 07:15
PROVIDERS: Internal Medicine; Internal Medicine Cardiovascular Disease; Specialist; Admitting Provider Internal Medicine; Emergency Provider Emergency Medicine; PCP Family Medicine; Visit Provider Internal Medicine
PROC: 4A023N7 Measurement of Cardiac Sampling and Pressure, Left Heart, Percutaneous Approach (ICD-10-PCS; CPT 93459; principal; 2020-06-23 09:30)
DX: I21.4 Non-ST elevation (NSTEMI) myocardial infarction (principal); I25.810 Atherosclerosis of coronary artery bypass graft(s) without angina pectoris; E87.1 Hypo-osmolality and hyponatremia; J96.12 Chronic respiratory failure with hypercapnia; I48.20 Chronic atrial fibrillation, unspecified; I50.22 Chronic systolic (congestive) heart failure; R55 Syncope and collapse; I25.10 Atherosclerotic heart disease of native coronary artery without angina pectoris; J43.9 Emphysema, unspecified; I11.0 Hypertensive heart disease with heart failure; S00.81XA Abrasion of other part of head, initial encounter; S01.81XA Laceration without foreign body of other part of head, initial encounter; W10.8XXA Fall (on) (from) other stairs and steps, initial encounter; I25.5 Ischemic cardiomyopathy; E83.42 Hypomagnesemia; E78.5 Hyperlipidemia, unspecified; E66.01 Morbid (severe) obesity due to excess calories; Z68.37 Body mass index [BMI] 37.0-37.9, adult; Z95.1 Presence of aortocoronary bypass graft; Z87.891 Personal history of nicotine dependence; I25.2 Old myocardial infarction
CPT/HCPCS: 36415; 36600; 70450; 71045; 71275; 72125; 74176; 80048; 80053; 82375; 82570; 82805; 83050; 83605; 83735; 83880; 84132; 84300; 84484; 85025; 85027; 85055; 85380; 85610; 85730; 90471; 90715; 93005; 93306; 93459; 93880; 93970; 94618; 94640; 94762; 96361; 96365; 96367; 96375; 99291; A9270; C1769; C1887; C1894; C8929; J0456; J0461; J0696; J1644; J1940; J2250; J2920; J2930; J3010; J3475; J7030; J7040; J7120; J7512; Q9957; Q9967

== ENCOUNTER 2020-07-04 16:50 | Outpatient (CLI) | payer MEDICARE, SELFPAY ==
--- NOTE | ~2020-07-04 | XR_ITS ---
EXAMINATION: XR lumbar spine 6V w bending EXAM DATE: 07/04/2020 17:22 INDICATION: M54.5 - Low back pain, chronic. TECHNIQUE: Lumber spine frontal, lateral, bilateral oblique projections. Coned down frontal and lat eral L5-S1 lumbar projections for interpretation. Additional lateral flexion and lateral extension p rojections obtained. There are no prior studies for comparison. FINDINGS: There is severe disc disease from L2 through S1, moderate at L1-2. There is about 2 mm ret rolisthesis L2 on L3. There is about 2 mm anterolisthesis L4 on L5. No spondylolysis suspected. There is severe lumbar facet arthropathy throughout the lumbar spine. There is moderate lumbar levoscolios is. Sacrum, sacroiliac joints, sacral arcuate lines are intact. Moderate aortic arterial sclerosis. T here are no acute fractures identified. IMPRESSION: 1. Severe lumbar spondylosis. 2. Moderate levoscoliosis. Reviewed, dictated and finalized at location A.
== END 2020-07-04 16:51 | disposition home or self-care (01) ==
LOC: ANHIMG 16:52
PROVIDERS: PCP Family Medicine; Visit Provider Family Medicine
DX: M47.817 Spondylosis without myelopathy or radiculopathy, lumbosacral region (principal); M41.9 Scoliosis, unspecified
CPT/HCPCS: 72114

== ENCOUNTER 2020-07-31 16:19 | Outpatient (CLI) | payer MEDICARE, SELFPAY ==
--- NOTE | ~2020-07-31 | MR_ITS ---
EXAMINATION: MR lumbar spine wo con DATE: 07/31/2020 17:16 INDICATION: Dorsalgia, unspecified. TECHNIQUE: Magnetic resonance imaging (MRI) of the lumbar spine was performed without intravenous con trast. Sequences included sagittal T2-weighted FSE, sagittal T2-weighted FS FSE, sagittal T1-weighted FSE, and axial T2-weighted FSE. COMPARISON: Lumbar spine radiographs 07/04/2020 FINDINGS: There is 17 degrees levoscoliosis of thoracolumbar spine. There is 4 mm retrolisthesis of L 2 on L3 and L3 on L4 and L5 on S1. There is mild chronic anterior wedging of T11 vertebral body. Ther e is severely decreased disc height from L2-L3 through L5-S1 with endplate remodeling. The distal spi nal cord signal intensity is normal. The conus medullaris is at L1. Epidural lipomatosis is noted. Th e following disc levels are specifically discussed: L1-L2: The disc is bulging. There is mild bilateral facet joint osteoarthritis. There is mild left ne ural foraminal stenosis. There is no central canal stenosis. L2-L3: The disc is bulging and has an annular fissure. There is mild bilateral facet joint osteoarthr itis. There is moderate bilateral neural foraminal stenosis. There is moderate central canal stenosis . L3-L4: The disc is bulging and has an annular fissure. There is severe right and mild left facet join t osteoarthritis. There is mild right and moderate left neural foraminal stenosis. There is severe ce ntral canal stenosis. L4-L5: The disc is bulging and has an annular fissure. There is moderate right and severe left facet joint osteoarthritis. There is moderate bilateral neural foraminal stenosis. There is severe central canal stenosis. L5-S1: The disc is bulging and has an annular fissure. There is moderate bilateral facet joint osteoa rthritis. There is moderate bilateral neural foraminal stenosis. There is severe central canal stenos is. IMPRESSION: 1. Severe lumbar spondylosis. 2. Thoracolumbar levoscoliosis. Reviewed, dictated and finalized at location B.
== END 2020-07-31 16:20 | disposition home or self-care (01) ==
PROVIDERS: PCP Family Medicine; Visit Provider Family Medicine
DX: M47.896 Other spondylosis, lumbar region (principal)
CPT/HCPCS: 72148

== ENCOUNTER 2020-11-21 03:37 | Observation (INO) | payer MEDICARE, SELFPAY ==
[2020-11-21] VITALS (46 sets, daily range): BP systolic 97–157; BP diastolic 56–107; PULSE 82–134; RESP 12–37; TEMP 36.6–36.8; O2SAT 97–99; BMI 39.4
--- NOTE | ~2020-11-21 | XR_ITS ---
EXAMINATION: XR chest 2V DATE: 11/21/2020 04:30 INDICATION: Chest tightness TECHNIQUE: PA and lateral views of the chest are obtained. COMPARISON: 06/22/2020 FINDINGS: The lungs are free of acute opacities. There is no pleural effusion or pneumothorax. Cardio megaly is noted. Median sternotomy wires and mediastinal surgical clips are seen, likely from prior c oronary artery bypass grafting. And endovascular stent is noted adjacent to the left upper mediastinu m. There is severe thoracic spondylosis. IMPRESSION: 1. Cardiomegaly. Reviewed, dictated and finalized at location D. IMPRESSION: 1. Cardiomegaly.
--- NOTE | 2020-11-21 03:40 | ECG_ITS ---
Measurements Intervals [place] Rate: 116 P: [place]: 0 QRS: 73 QRSD: 101 T: -10 QT: 322 QTc: 449 Interpretive Statements ATRIAL FIBRILLATION WITH RAPID VENTRICULAR RESPONSE VENTRICULAR PREMATURE COMPLEXES NONSPECIFIC ST & T-WAVE ABNORMALITY- INFERIOR LEADS BASELINE ARTIFACT- I, III, AVR, AVL, AVF, V4-V6 ABNORMAL ECG Electronically Signed On 11-21-2020 6:03:48 CDT by Andrey Newman D.O.
[2020-11-21] MEDS: ASPIRIN 81 MG CHEWABLE TABLET 324 MG PO (04:11)
[2020-11-21 04:16] LABS: Basophils Absolute Auto 0.1 K/mm3 (0.0-0.1); Basophils Percent Auto 0.5 % (0.2-1.2); Eosinophils Absolute Auto 0.3 K/mm3 (0-0.3); Eosinophils Percent Auto 2.4 % (0-4.4); Hematocrit 41.1 % (42.0-52.0); Hemoglobin 13.1 g/dL (14.0-18.0); Immature Granulocyte Absolute 0.04 K/mm3 (0.00-0.031); Immature Granulocyte Percent A 0.3 % (0-0.5); Lymphocytes Absolute Auto 1.76 K/mm3 (0.9-3.2); Mean Corpuscular HGB Conc 31.9 g/dl (32-36); Mean Corpuscular Hemoglobin 28.2 pg (26-34); Mean Corpuscular Volume 88.4 fl (80-100); Mean Platelet Volume 9.5 fl (7.4-10.4); Monocytes Absolute Auto 0.9 K/mm3 (0.1-0.6); Monocytes Percent Auto 7.3 % (2.6-8.5); Neutrophils Absolute Auto 8.8 K/mm3 (1.3-6.7); Neutrophils Percent Auto 74.5 % (45.5-73.1); Platelet Count Result 382 k/mm3 (150-375); Red Blood Count 4.65 M/mm3 (4.6-6.20); Red Cell Distribution Width 15.3 % (11.5-14.5); White Blood Count 11.8 K/mm3 (4.5-10.0)
[2020-11-21 04:26] LABS: Anion Gap 11 mmol/L (8-16); Blood Urea Nitrogen 10 mg/dL (9-20); Calcium 9.4 mg/dL (8.4-10.2); Carbon Dioxide 26 mmol/L (22-30); Chloride 97 mmol/L (98-107); Estimated CRCL calculation 74 ml/min; Estimated Glomerular Filt Rate > 60; Glucose 158 mg/dL (65-110); Sodium 134 mmol/L (137-145)
[2020-11-21 04:34] LABS: INR 0.9; Prothrombin Time 12.4 Seconds (11.1-14.7)
[2020-11-21 04:35] LABS: Partial Thromboplastin Time 34.8 SECONDS (22.3-36.8)
[2020-11-21 04:38] LABS: Troponin I 0.012 ng/mL (0.000-0.034)
--- NOTE | 2020-11-21 04:54 | ED.CHESTPAIN ---
HPI - Chest Pain General Chief Complaint: Chest Pain Stated Complaint: Chest tightness Time Seen by Provider: 11/21/20 04:04 Source: patient and RN notes reviewed Mode of arrival: ambulatory History of Present Illness HPI narrative: This is a 70 year old male with history of hyperlipidemia, COPD, CABG, paroxysmal atrial fibrillation who presents for evaluation of shortness of breath and chest tightness. He states he developed midsternal chest tightness yesterday morning and it has been constant. His tightness is nonradiating and it has gradually worsened. He also reports worsening shortness of breath and wheezing. He tried his albuterol rescue inhaler without relief of his symptoms. His shortness of breath is worse with exertion. He denies fever, chills, nausea, vomiting, runny nose, weight gain. Related Data Home Medications Medication Instructions Recorded Confirmed atorvastatin 40 mg PO DAILY 06/21/20 11/21/20 furosemide 40 mg PO DAILY 06/21/20 11/21/20 losartan 25 mg PO DAILY 06/21/20 11/21/20 metoprolol succinate 25 mg PO DAILY 06/21/20 11/21/20 potassium chloride 20 meq PO DAILY 06/21/20 11/21/20 clopidogrel 75 mg tablet 75 mg PO DAILY 07/04/20 11/21/20 Allergies Allergy/AdvReac Type Severity Reaction Status Date / Time No Known Allergies Allergy Verified 11/21/20 04:01 Review of Systems Review of Systems: All systems reviewed & are unremarkable except as noted in HPI and below Constitutional: Constitutional: Denies chills and Denies fever(s) ENT: Denies nasal congestion and Denies sore throat Cardiovascular: Cardiovascular: Reports chest pain, Reports rapid heart rate and Denies radiating jaw, neck or arm pain Respiratory: Respiratory: Denies cough and Reports dyspnea Gastrointestinal: Gastrointestinal: Denies abdominal pain, Denies nausea and Denies vomiting Neurologic: Denies headache(s) [facility] Past Medical History Medical History Alcohol abuse BMI over 35 Chronic hypercapnic respiratory failure COPD (chronic obstructive pulmonary disease) COPD (chronic obstructive pulmonary disease) with emphysema Coronary artery disease Followed by Dr. Hill Essential hypertension History of ventricular fibrillation VFib arrest during cardiac catheterization December 2018 and subsequent cardiogenic shock cardiac in her aortic balloon pump emergent echo demonstrating EF of 35% Hypercholesterolemia Irritation of left eye Paroxysmal atrial fibrillation Restless leg STEMI (ST elevation myocardial infarction) Tobacco use Surgical History Surgical History History of cardiac catheterization December 2018: High-grade stenosis of left main coronary, moderate to severe diffuse disease of proximal to mid LAD, high-grade eccentric ulcerated plaque in the mid segment of the dominant RCA. During catheterization the patient went into VFib arrest much shock x1 Hx of CABG CABG with [place] to LAD, left radial artery to OM 2, reverse saphenous vein graft 2 p.o. be of RCA performed by Dr. Worrell December 2019 at [facility]. Family History Family History Mother Bone cancer Father Alcoholism Sibling Healthy adult male 62 years old Social History Social History Social History: 48 years. They have 4 children who reportedly healthy. He is a former smoker at least a pack of cigarettes per day for about 42 years. He used to drink alcohol quite heavily and drink at least a 10 pack a day until his heart attack in December of 2018. He denies any illicit substance use. 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 Primary care physician: Dr. Thomas Garza Code status: Full code Surrogate decision maker: Smoking status: Former smoker Alcohol intake: former Alcohol use
[2020-11-21] MEDS: dilTIAZem HCl INJ 25 MG/5 ML VIAL 10 MG IV PUSH (05:02)
[2020-11-21] MEDS: predniSONE 20 MG TABLET 60 MG PO (05:26)
[2020-11-21] MEDS: ALBUTEROL SULFATE NEB 2.5 MG/0.5 ML INH 5 MG INHALATION (05:45)
[2020-11-21] MEDS: IPRATROPIUM BR 0.02% INH SOLN 0.5 MG/2.5 ML VIAL INHALATION (05:46)
[2020-11-21] MEDS: ENOXAPARIN 120 MG/0.8 ML SYRINGE SUB-Q (06:28)
[2020-11-21 07:28] LABS: NT Pro B Type Natriuretic Pept 1930 pg/mL (5-100)
[2020-11-21] MEDS: ONDANSETRON INJ 4 MG/2 ML VIAL IV PUSH (07:56)
[2020-11-21 08:57] LABS: Troponin I 0.014 ng/mL (0.000-0.034)
--- NOTE | 2020-11-21 09:43 | ADMGEN ---
This patient, Zack Dai, was admitted to IMU Room 205-02 @ 0905.Patient oriented to hospital policies and general routines including ID bracelet, bed and alarms, visiting hours, pain management, procedures, bathroom and other care routines, personal items, smoking policy, room service/diet, and visiting hours. Information on how to activate the Rapid Response Team has been discussed. Patient are encouraged to report perceived risks to care and to ask questions if they do not understand what they are told or what they should do.
--- NOTE | 2020-11-21 10:17 | PM.CNCAR ---
Assessment and Plan Assessment and plan (1) Atrial fibrillation with rapid ventricular response: Code(s): I48.91 - Unspecified atrial fibrillation Status: Acute Assessment and Plan: 70-year-old male with history of multivessel CAD, history of ST-elevation [place], history of successfully resuscitated VFib cardiac arrest in the setting of acute [place], status post CABG x3 with [place] to LAD, radial to OM 2, SVG to PLV branch of RCA on 01/07/2019, postoperative atrial fibrillation status post DC cardioversion on 01/08/2019, left subclavian artery stenosis status post DESK LIEUTENANT/stenting on 06/30/2020, COPD, history of heavy tobacco abuse. Patient presented to hospital with complaints of palpitations associated with shortness of breath and chest pressure. Found to be in atrial fibrillation with RVR. He has been on IV diltiazem with heart rates in 80s to 90s with underlying atrial fibrillation. -discontinue IV diltiazem; start IV amiodarone to facilitate DC cardioversion. Plan to use amiodarone short-term as patient has underlying COPD. ASIA guided DC cardioversion tomorrow if patient is still in atrial fibrillation. Initiate anticoagulation with apixaban 5 mg p.o. b.i.d.. Patient has been on dual antiplatelet therapy as an outpatient. In order to decrease bleeding complications, will discontinue clopidogrel, and continue low-dose aspirin alone. -low-dose metoprolol tartrate 12.5 mg p.o. b.i.d. with holding parameters. -continue to monitor on telemetry. (2) CAD (coronary artery disease): Code(s): I25.10 - Atherosclerotic heart disease of [place] coronary artery without angina pectoris Status: Acute Assessment and Plan: Patient is status post CABG. His last cardiac catheterization showed severe [place] vessel CAD with patent bypass grafts. Patient also has peripheral artery disease with stenosis of left subclavian artery and status post PTCA/stenting. Antiplatelet therapy with aspirin. Will use single antiplatelet agent as patient is being initiated on anticoagulation with apixaban for atrial fibrillation. Beta-rosita; statin. History of Present Illness History of Present Illness Consult date/time: 11/21/20 10:17 DATE OF CONSULT: 11/21/2020 REASON FOR CONSULT: AFib with RVR REQUESTING PHYSICIAN:Joanne Brar MD CHIEF COMPLAINT: Chest pain HPI: 70-year-old male with history of multivessel CAD, history of ST-elevation [place], history of successfully resuscitated VFib cardiac arrest in the setting of acute [place], status post CABG x3 with [place] to LAD, radial to OM 2, SVG to PLV branch of RCA on 01/07/2019, postoperative atrial fibrillation status post DC cardioversion on 01/08/2019, left subclavian artery stenosis status post DESK LIEUTENANT/stenting on 06/30/2020, COPD, history of heavy tobacco abuse. Patient presented to [facility] on 11/21/2020 with complaints of palpitations associated with chest pain and shortness of breath that started yesterday morning. At baseline, patient has dyspnea on mild exertion. He has not had any recent anginal chest pain. His EKG on presentation which I personally evaluated showed atrial fibrillation with RVR, ventricular rate 116 beats per minute, PVC versus aberrantly conducted beats, nonspecific ST-T abnormality. First 2 sets of troponins are negative. NT proBNP is elevated at in 1930. Patient has been on diltiazem, and his heart rate is improved. On telemetry, is in atrial fibrillation with ventricular rate in 80s to 90s. Reason For Visit: atrial fibrillation with rvr,copd chest tightness Review of Systems Review of Systems: General: Negative for fever, chills, fatigue Psychological: Negative for anxiety, depression Ophthalmic: negative for loss of vision ENT: Negative for epistaxis, headaches Allergy and immunology: Negative for hives, nasal congestion Hematologic and lymphatic: Negative for overt bleeding problems Endocrine: Negative for hot flashes, palpitations Respiratory: Negative for c
[2020-11-21 10:44] LABS: Troponin I < 0.012 ng/mL (0.000-0.034)
[2020-11-21] MEDS: AMIODARONE 360 MG/D5W 200 ML 360 MG/200 ML BAG 33.33 MG IV CONT (10:51)
--- NOTE | 2020-11-21 14:41 | PM.IMHP ---
H&P: HPI History of Present Illness Date/Time: 11/21/20 14:41 Chief Complaint: Dyspnea, chest discomfort Narrative: Patient is 70-year-old male with past medical history of paroxysmal atrial fibrillation, CAD status post CABG x3, VFib arrest status post [place], postoperative atrial fibrillation status post cardioversion 01/08/2019, history of COPD who presents to the ED with complaints of dyspnea and chest discomfort. His acute onset which happened yesterday while he was sitting at home. Was not doing any physical activity, he denies caffeine use are any stimulants. Patient denies any significant stress at home. In the ED he was found to have AFib with RVR. His plan on diltiazem drip. This morning cardiology evaluated patient and placed him on amiodarone drip with intention for DC cardioversion tomorrow with ASIA, patient NPO midnight. At this time it is unclear with the triggers for his AFib more. He denies fever, chills, nausea, vomiting, diarrhea, sick contacts, recent travel. He states his COPD had been under control he takes 2 inhalers at home, previously was on 3 different inhalers prior to his coronary event. He follows PCP Dr. Villatoro. Review of Systems Review of Systems: Constitutional: No Fever, No Chills, No Night Sweats, No Fatigue, No Malaise ENT/Mouth: No Hearing Changes, No Ear Pain, No Nasal Congestion, No Sinus Pain, No Hoarseness, No sore throat, No Rhinorrhea, No Swallowing Difficulty Eyes: No Eye Pain, No Redness, No Vision Changes Cardiovascular: No Chest Pain, No Palpitations, No Dyspnea on Exertion, No Orthopnea, No Claudication, No Edema. Endorses chest discomfort. Respiratory: No Cough, No Sputum, endorses chronic wheezing. Endorses worsening shortness of breath associated with the chest discomfort. Gastrointestinal: No Nausea, No Vomiting, No Diarrhea, No Constipation, No Abdominal Pain, No Heartburn, No Hematochezia, No Melena Genitourinary: No Dysuria, No Urinary Frequency, No Hematuria, No Urinary Incontinence, No Urgency Musculoskeletal: No Arthralgias, No Myalgias, No Joint Swelling, No Joint Stiffness, No Back Pain Skin: No Skin Lesions, No Pruritis, No Hair Changes Neuro: No Weakness, No Numbness, No Paresthesias, No Loss of Consciousness, No Syncope, No Dizziness, No Headache Psych: No Anxiety/Panic, No Depression, No Insomnia Heme: No Bruising, No Bleeding Lymph: No Adenopathy Endocrine: No Polyuria, No Polydipsia, No Temperature Intolerance [facility] Past Medical History Medical History Alcohol abuse BMI over 35 Chronic hypercapnic respiratory failure COPD (chronic obstructive pulmonary disease) COPD (chronic obstructive pulmonary disease) with emphysema Coronary artery disease Followed by Dr. Hill Essential hypertension History of ventricular fibrillation VFib arrest during cardiac catheterization December 2018 and subsequent cardiogenic shock cardiac in her aortic balloon pump emergent echo demonstrating EF of 35% Hypercholesterolemia Irritation of left eye Paroxysmal atrial fibrillation Restless leg STEMI (ST elevation myocardial infarction) Tobacco use Surgical History Surgical History History of cardiac catheterization December 2018: High-grade stenosis of left main coronary, moderate to severe diffuse disease of proximal to mid LAD, high-grade eccentric ulcerated plaque in the mid segment of the dominant RCA. During catheterization the patient went into VFib arrest much shock x1 Hx of CABG CABG with [place] to LAD, left radial artery to OM 2, reverse saphenous vein graft 2 p.o. be of RCA performed by Dr. Worrell December [address] [facility]. Family History Family History Mother Bone cancer Father Alcoholism Sibling Healthy adult male 62 years old Social History Social History (Reviewed 11/21/20 @ 14:55 by Dorys Toledo
[2020-11-21] MEDS: AMIODARONE 360 MG/D5W 200 ML 360 MG/200 ML BAG 16.67 MG IV CONT (16:42)
[2020-11-21] MEDS: APIXABAN 5 MG TABLET PO (20:17)
[2020-11-21] MEDS: METOPROLOL TARTRATE 12.5 MG TABLET PO (20:17)
[2020-11-21] MEDS: rOPINIRole HCL 0.5 MG TABLET PO (20:17)
[2020-11-22] VITALS (17 sets, daily range): BP systolic 114–143; BP diastolic 46–63; PULSE 72–107; RESP 16–22; TEMP 36.1–36.8; O2SAT 95–99
[2020-11-22] MEDS: AMIODARONE 360 MG/D5W 200 ML 360 MG/200 ML BAG 16.67 MG IV CONT (03:40)
[2020-11-22] MEDS: ASPIRIN 81 MG ENTERIC TABLET PO (09:35)
[2020-11-22] MEDS: APIXABAN 5 MG TABLET PO (09:35)
[2020-11-22] MEDS: LOSARTAN POTASSIUM 25 MG TABLET PO (09:35)
[2020-11-22] MEDS: METOPROLOL TARTRATE 12.5 MG TABLET PO (09:35)
[2020-11-22] MEDS: FUROSEMIDE 40 MG TABLET PO (09:35)
[2020-11-22] MEDS: ATORVASTATIN 40 MG TABLET PO (09:35)
[2020-11-22] MEDS: POTASSIUM CHLORIDE 20 MEQ TABLET.ER PO (09:36)
--- NOTE | 2020-11-22 10:04 | PM.PNCARD ---
Progress Note: A&P Assessment and Plan (1) Atrial fibrillation with rapid ventricular response: Code(s): I48.91 - Unspecified atrial fibrillation Status: Acute Assessment and Plan: 70-year-old male with history of multivessel CAD, history of ST-elevation DC, history of successfully resuscitated VFib cardiac arrest in the setting of acute DC, status post CABG x3 with [place] to LAD, radial to OM 2, SVG to PLV branch of RCA on 01/07/2019, postoperative atrial fibrillation status post DC cardioversion on 01/08/2019, left subclavian artery stenosis status post PROGRAM TRAINER/stenting on 06/30/2020, COPD, history of heavy tobacco abuse. Patient presented to hospital with complaints of palpitations associated with shortness of breath and chest pressure. Found to be in atrial fibrillation with RVR. He has been on IV diltiazem with heart rates in 80s to 90s with underlying atrial fibrillation. -patient chemically cardioverted to sinus rhythm on intravenous amiodarone. Plan ASIA guided cardioversion cancelled subsequently. -Discontinue IV Amiodarone 30 minutes after 1st oral dose of 400 mg Amiodarone. Transition to oral amiodarone 400 mg p.o. b.i.d. for 1 week then 400 mg daily for 2 weeks then 200 mg daily thereafter. Continue metoprolol. Continue apixaban 5 mg b.i.d.. -plan for short-term use on an outpatient basis. Risks, benefits, alternatives to amiodarone discussed. Over longer-term risks involving the eyes, thyroid, and lungs discussed. Plan for short-term use and defer further management per Dr. Hill as an outpatient. -patient has significant wheezing on exam this morning. Defer to primary service for further management in this regard. -follow-up with Dr. Hill as an outpatient in 2-4 weeks. Provided patient is maintaining sinus rhythm, tolerating oral medical therapy he is stable from a cardiac perspective for discharge home with disposition per hospitalist service. Please do not hesitate to contact us with any additional questions or concerns. (2) CAD (coronary artery disease): Code(s): I25.10 - Atherosclerotic heart disease of [place] coronary artery without angina pectoris Status: Acute Assessment and Plan: Patient is status post CABG. His last cardiac catheterization showed severe [place] vessel CAD with patent bypass grafts. Patient also has peripheral artery disease with stenosis of left subclavian artery and status post PTCA/stenting. Antiplatelet therapy with aspirin. Will use single antiplatelet agent as patient is being initiated on anticoagulation with apixaban for atrial fibrillation. Beta-rosita; statin. Subjective Date/time seen: Date of service: 11/22/20 10:04 Follow-up for atrial fibrillation with rapid ventricular response Patient feels well this morning. Denies significant shortness of breath or chest pain but admits he is primarily sitting in bed. No palpitations, dizziness or bleeding. Patient was started on intravenous amiodarone and converted to sinus rhythm this morning around 6:46 a.m.. Review of Systems Review of Systems: All systems reviewed & are unremarkable except as noted in HPI and below Constitutional: Constitutional: Reports as per HPI and Reports no additional constitutional complaints Eyes: Eyes: Reports as per HPI and Reports no additional eye complaints ENT: Reports system reviewed and no additional complaints, except as documented and Reports as per HPI Cardiovascular: Cardiovascular: Reports as per HPI and Reports no additional cardiovascular complaints Respiratory: Respiratory: Reports as per HPI and Reports no additional respiratory complaints Gastrointestinal: Gastrointestinal: Reports as per HPI and Reports no additional gastrointestinal complaints Genitourinary: Genitourinary: Reports no additional male genitourinary complaints and Reports as per HPI Musculoskeletal: Musculoskeletal: Reports no additional musculoskeletal complaints and Reports as per HPI Integum
[2020-11-22 11:24] LABS: Basophils Absolute Auto 0.1 K/mm3 (0.0-0.1); Basophils Percent Auto 0.4 % (0.2-1.2); Eosinophils Absolute Auto 0.1 K/mm3 (0-0.3); Hematocrit 36.9 % (42.0-52.0); Hemoglobin 11.8 g/dL (14.0-18.0); Immature Granulocyte Absolute 0.03 K/mm3 (0.00-0.031); Immature Granulocyte Percent A 0.3 % (0-0.5); Mean Corpuscular Hemoglobin 28.4 pg (26-34); Mean Corpuscular Volume 88.9 fl (80-100); Mean Platelet Volume 9.3 fl (7.4-10.4); Monocytes Absolute Auto 0.7 K/mm3 (0.1-0.6); Monocytes Percent Auto 6.4 % (2.6-8.5); Neutrophils Absolute Auto 8.4 K/mm3 (1.3-6.7); Neutrophils Percent Auto 74.9 % (45.5-73.1); Platelet Count Result 334 k/mm3 (150-375); Red Blood Count 4.15 M/mm3 (4.6-6.20); Red Cell Distribution Width 15.4 % (11.5-14.5); White Blood Count 11.2 K/mm3 (4.5-10.0)
[2020-11-22 11:48] LABS: Alanine Aminotransferase 14 U/L (4-50); Albumin Level 3.9 g/dL (3.5-5.1); Alkaline Phosphatase 99 U/L (38-126); Anion Gap 6 mmol/L (8-16); Aspartate Amino Transferase 23 U/L (17-59); Bilirubin,Total 0.6 mg/dL (0.2-1.3); Blood Urea Nitrogen 14 mg/dL (9-20); Carbon Dioxide 29 mmol/L (22-30); Chloride 94 mmol/L (98-107); Estimated CRCL calculation 78 ml/min; Estimated Glomerular Filt Rate > 60; Glucose 161 mg/dL (65-110); Potassium 3.9 mmol/L (3.4-5.0); Sodium 129 mmol/L (137-145)
[2020-11-22] MEDS: IPRATROPIUM BR 0.02% INH SOLN 0.5 MG/2.5 ML VIAL INHALATION ×2 (12:22→16:36)
[2020-11-22] MEDS: ALBUTEROL SULFATE NEB 2.5 MG/0.5 ML INH INHALATION ×2 (12:22→16:36)
[2020-11-22] MEDS: AMIODARONE HCL 200 MG TABLET 400 MG PO (12:40)
[2020-11-22] MEDS: methylPREDNISolone SOD SUCC 125 MG VIAL 80 MG IV PUSH (12:43)
--- NOTE | 2020-11-22 16:58 | PM.DS ---
DS: Admitting Diagnosis Admitting Diagnosis AFib DS: Discharge Diagnosis Discharge Diagnosis (1) Atrial fibrillation with rapid ventricular response: Code(s): I48.91 - Unspecified atrial fibrillation Status: Resolved (2) Restless leg: Code(s): G25.81 - Restless legs syndrome Status: Acute (3) COPD (chronic obstructive pulmonary disease) with emphysema: Code(s): J43.9 - Emphysema, unspecified Status: Acute (4) Irritation of left eye: Code(s): H57.89 - Other specified disorders of eye and adnexa Status: Acute (5) Ischemic cardiomyopathy: Code(s): I25.5 - Ischemic cardiomyopathy Status: Acute (6) Essential hypertension: Code(s): I10 - Essential (primary) hypertension Status: Acute (7) BMI over 35: Status: Acute (8) Hyperlipidemia: Qualifiers: Hyperlipidemia type: unspecified Qualified Code(s): E78.5 - Hyperlipidemia, unspecified Code(s): E78.5 - Hyperlipidemia, unspecified Status: Acute (9) CAD (coronary artery disease): Qualifiers: Coronary Disease-Associated Artery/Lesion type: unspecified vessel or lesion type [place] vs. transplanted heart: unspecified whether [place] or transplanted heart Associated angina: unspecified whether angina present Qualified Code(s): I25.10 - Atherosclerotic heart disease of [place] coronary artery without angina pectoris Code(s): I25.10 - Atherosclerotic heart disease of [place] coronary artery without angina pectoris Status: Acute (10) Leucocytosis: Qualifiers: Leukocytosis type: unspecified Qualified Code(s): D72.829 - Elevated white blood cell count, unspecified Code(s): D72.829 - Elevated white blood cell count, unspecified Status: Acute DS: Summary Hospital Course Reason for hospitalization: Atrial fibrillation Hospital Course: A 70-year-old male with past medical history significant for coronary artery disease status post STEMI, status post VFib cardiac arrest, status post CABG x3, atrial fibrillation status post cardioversion in 2018, left subclavian artery stenosis status post stenting June 2020, COPD and history of tobacco use presented with shortness of breath and chest pressure. He was noted to have AFib with RVR and was initially started on Dilt drip however later cardiology was invited to the care of the patient and he was started on IV amiodarone. He was initially planned for a ASIA with cardioversion however he was able to be converted with chemical cardioversion alone. He received p.o. amiodarone and is now receiving a loading dose as per cardiology recommendations. Patient was previously on aspirin and Plavix due to recent stenting, however, given new atrial fibrillation, he is now being started on apixaban. And as per Cardiology recommendations he will now be receiving aspirin and apixaban. Clopidogrel will be discontinued. He continued to improve and he is now being discharged in stable condition with outpatient cardiology follow-up. Time Spent with Patient Time attestation: Total time spent providing and/or coordinating discharge services: Time spent: Greater than 30 minutes Exam Const: General: cooperative Nutritional Appearance: obese HENMT: Head: normal to inspection Ears: hearing grossly normal bilaterally Eyes: General: appearance normal, both eyes and all related structures Neck: Neck: normal visual inspection and full ROM Resp: Effort & Inspection: normal respiratory effort Auscultation: clear to auscultation bilaterally Cardio: Jugular venous distension: no JVD Palpation: normal PMI GI: Inspection: normal to inspection GI Palp: Yes Hepatomegaly present Percussion: Yes normal to percussion : General: Yes bimanual renal exam normal bilaterally and Yes CVA tenderness Back/Spine/Pelvis: Back: no CVA tenderness Skin: General skin exam: normal color, no rashes or lesions noted, elasticity tomy
== END 2020-11-22 19:00 | disposition home or self-care (01) ==
LOC: ANHED 08:07 → ANHIMU 08:27
PROVIDERS: Student in an Organized Health Care Education/Training Program; Admitting Provider Internal Medicine; Emergency Provider General Practice; PCP Family Medicine; Visit Provider Internal Medicine
DX: I48.0 Paroxysmal atrial fibrillation (principal); I25.5 Ischemic cardiomyopathy; J44.9 Chronic obstructive pulmonary disease, unspecified; R07.9 Chest pain, unspecified; R06.02 Shortness of breath; E78.5 Hyperlipidemia, unspecified; G25.81 Restless legs syndrome; H57.89 Other specified disorders of eye and adnexa; D72.829 Elevated white blood cell count, unspecified; I25.10 Atherosclerotic heart disease of native coronary artery without angina pectoris; I10 Essential (primary) hypertension; I25.2 Old myocardial infarction; Z87.891 Personal history of nicotine dependence; Z95.1 Presence of aortocoronary bypass graft; Z79.02 Long term (current) use of antithrombotics/antiplatelets; Z79.82 Long term (current) use of aspirin; E66.9 Obesity, unspecified; Z68.39 Body mass index [BMI] 39.0-39.9, adult
CPT/HCPCS: 36415; 36600; 71046; 80048; 80053; 83880; 84132; 84484; 85025; 85610; 85730; 93005; 94640; 96365; 96366; 96367; 96372; 96375; 99285; A9270; G0378; J0282; J1650; J2405; J2930; J7512

== ENCOUNTER 2021-04-16 11:48 | Outpatient (CLI) | payer MEDICARE, SELFPAY ==
[2021-04-16 12:54] LABS: Anion Gap 8 mmol/L (8-16); Blood Urea Nitrogen 12 mg/dL (9-20); Calcium 8.7 mg/dL (8.4-10.2); Carbon Dioxide 30 mmol/L (22-30); Chloride 96 mmol/L (98-107); Estimated Glomerular Filt Rate 60; Glucose 155 mg/dL (65-110); Magnesium 2.1 mg/dL (1.6-2.3); Potassium 4.6 mmol/L (3.4-5.0); Sodium 134 mmol/L (137-145)
== END 2021-04-16 11:49 | disposition home or self-care (01) ==
PROVIDERS: PCP Family Medicine; Visit Provider Nurse Practitioner Family
DX: G25.81 Restless legs syndrome (principal)
CPT/HCPCS: 36415; 80048; 82607; 83735

== ENCOUNTER 2021-05-09 17:24 | Inpatient (IN) | payer MEDICARE, SELFPAY ==
[2021-05-09] VITALS (7 sets, daily range): BP systolic 105–171; BP diastolic 45–83; PULSE 81–120; RESP 18–30; TEMP 36.5; O2SAT 94–100
--- NOTE | ~2021-05-09 | XR_ITS ---
EXAMINATION: XR chest 1V portable DATE: 05/17/2021 06:16 INDICATION: Respiratory failure. TECHNIQUE: A single frontal view of the chest was obtained on 2 radiographs. COMPARISON: Chest single view 05/16/2021 FINDINGS: There are airspace opacities in right lower lung zone and left mid and lower lung zones. Th ere is a small left pleural effusion. No pneumothorax. Cardiomegaly is noted. Median sternotomy wires and mediastinal surgical clips are seen, likely from prior coronary artery bypass grafting. There is a stent in left subclavian artery. The endotracheal tube tip is 3.5 cm above the karl. The nasogas tric tube tip is in the stomach. IMPRESSION: 1. Airspace opacities in right lower lung zone and left mid and lower lung zones with worsening on th e left, consistent with atelectasis versus pneumonia. 2. Worsened small left pleural effusion. 3. Cardiomegaly. Reviewed, dictated and finalized at location E. ER UP IMPRESSION: 1. Airspace opacities in right lower lung zone and left mid and lower lung zone s with worsening on the left, consistent with atelectasis versus pneumonia. 2. Worsened small left pleural effusion. 3. Cardiomegaly.
--- NOTE | ~2021-05-09 | XR_ITS ---
XR chest ET placement DATE: 05/12/2021 20:03 INDICATION: ET tube placement TECHNIQUE: Portable AP chest on 05/12/2021 at 1938 hours COMPARISON: 05/12/2021 portable AP chest at 1043 hours FINDINGS: ET tube tip is approximately 6-7 cm above karl. NG tube in stomach. Status post sternotomy. Cardiomegaly. There is pulmonary vascular congestion and redistribution. There are bilateral pulmonary infiltrates which are more prominent centrally, right greater than left. There is mild prominence of the minor fi ssure. Evelin B-lines are noted. The findings suggest congestive and pulmonary edema IMPRESSION: ET tube tip approximately 6 7 7 cm above karl NG tube in stomach Cardiomegaly, congestive heart failure, pulmonary edema Reviewed, dictated and finalized at Location A. Reviewed, dictated and finalized at location A. UTER ART INSTRUCTOR
--- NOTE | ~2021-05-09 | CT_ITS ---
EXAMINATION: CT brain wo con DATE: 05/09/2021 18:33 INDICATION: Fall. Syncope. TECHNIQUE: Computed tomography (CT) of the head was performed without intravenous contrast. The mA wa s adjusted according to patient size. Iterative reconstruction technique was employed. Exam dose: 60 5.33 mGy-cm total exam DLP. COMPARISON: 06/20/2020 CT brain FINDINGS: There is right vertebral artery and prominent bilateral carotid siphon internal carotid art marcela calcification. There is nonspecific diminished attenuation of the cerebral white matter, likely due to chronic small vessel ischemic changes. Small chronic lacunar infarcts are noted in the region of the anterior limb and genu of the left inte rnal capsule. No intracranial mass lesion or hemorrhage or recent cerebrovascular accident is detected. There is no midline shift or mass effect effect. No subdural or epidural hematoma is detected. No fracture or bone destruction of the cranial vault. The paranasal sinuses and mastoid air cells are well aerated. IMPRESSION: Cerebral atherosclerosis and chronic small vessel ischemic changes of the cerebral white matter Chronic lacunar infarcts of left internal capsule No acute intracranial finding or skull fracture Reviewed, dictated and finalized at Location A. Reviewed, dictated and finalized at location A. ROLLING MACHINE OPERATOR
--- NOTE | ~2021-05-09 | XR_ITS ---
EXAMINATION: XR abdomen obstructive series EXAM DATE: 05/22/2021 10:52 INDICATION: abd distention TECHNIQUE: Frontal upright projection of the upper abdomen, frontal projection of the lower abdomen f or interpretation. Comparison is made to prior examination from 05/21/2021. Correlation was made with C T scan from yesterday. FINDINGS: Again there are multiple loops of severely distended air-filled colon; correlate with CT a bdomen pelvis from yesterday. Consider colonic ileus given no obstruction or volvulus suspected on 's CT. No free intraperitoneal gas. No small bowel dilation. Advanced thoracolumbar spondylosi s. IMPRESSION: Persistent severely distended air-filled colon, consider colonic ileus. Reviewed, dictated and finalized at location B. CONSULTANT IMPRESSION: Persistent severely distended air-filled colon, consider colonic il eus.
--- NOTE | ~2021-05-09 | XR_ITS ---
EXAMINATION: XR chest 1V portable INDICATION: Shortness of breath TECHNIQUE: Portable AP chest at 0532 hours COMPARISON: 05/29/2021 FINDINGS: Cardiomegaly is noted. There is no pleural effusion or pneumothorax. Minimal bibasilar airs pace opacities persist without significant change. Median sternotomy wires and mediastinal surgical c lips are seen, likely from prior coronary artery bypass grafting. IMPRESSION: 1. Minimal airspace opacities of the lung bases, consistent with atelectasis versus pneumonia. 2. Cardiomegaly. Reviewed, dictated and finalized at location A. BUSINESS INTERNSHIP IMPRESSION: 1. Minimal airspace opacities of the lung bases, consistent with atelectasis ve rsus pneumonia. 2. Cardiomegaly.
--- NOTE | ~2021-05-09 | XR_ITS ---
EXAMINATION: XR chest 1V portable DATE: 05/15/2021 06:09 INDICATION: Intubated. TECHNIQUE: A single frontal view of the chest was obtained. COMPARISON: Chest single view 05/14/2021 FINDINGS: There are airspace opacities in all right lung zones and left mid and lower lung zones. The re are small pleural effusions. No pneumothorax. Cardiomegaly is noted. Median sternotomy wires and m ediastinal surgical clips are seen, likely from prior coronary artery bypass grafting. The endotrache al tube tip is 2.8 cm above the karl. There is a stent in left subclavian artery. The nasogastric t ube tip is beyond the inferior margin of the radiograph, but at least to the stomach. IMPRESSION: 1. Diffuse lung disease with worsening at the lung bases, consistent with pulmonary edema versus pneu monia. 2. Worsened small pleural effusions. 3. Cardiomegaly. Reviewed, dictated and finalized at location A. ING AID CONSULTANT IMPRESSION: 1. Diffuse lung disease with worsening at the lung bases, consistent with pulmo nary edema versus pneumonia. 2. Worsened small pleural effusions. 3. Cardiomegaly.
--- NOTE | ~2021-05-09 | XR_ITS ---
EXAMINATION: XR chest 1V portable DATE: 05/13/2021 06:20 INDICATION: Intubated. TECHNIQUE: A single frontal view of the chest was obtained. COMPARISON: Chest single view 05/12/2021, CT abdomen and pelvis 06/20/2020 FINDINGS: The patient is rotated to his left. There are airspace opacities in all lung zones bilatera lly, right worse than left. No pleural effusion or pneumothorax. There is a prominent fat pad in left lateral costophrenic angle. Cardiomegaly is noted. Median sternotomy wires and mediastinal surgical clips are seen, likely from prior coronary artery bypass grafting. There is a stent in left superior mediastinum, likely in left subclavian artery. The endotracheal tube tip is 3.3 cm above the karl. The nasogastric tube tip is beyond the inferior margin of the radiograph, but at least to the stomach . IMPRESSION: 1. Worsened diffuse lung disease, consistent with pulmonary edema versus pneumonia. 2. Cardiomegaly. Reviewed, dictated and finalized at location A. ISTRY MANAGER IMPRESSION: 1. Worsened diffuse lung disease, consistent with pulmonary edema versus pneumo justyn. 2. Cardiomegaly.
--- NOTE | ~2021-05-09 | CT_ITS ---
EXAMINATION: CT abdomen pelvis wo con DATE: 05/21/2021 13:34 INDICATION: Nausea, vomiting, constipation TECHNIQUE: Computed tomography (CT) of the abdomen and pelvis was performed without intravenous contr ast. Automated exposure control and iterative reconstruction technique were employed. Exam dose: 147 2.42 mGy-cm total exam DLP. COMPARISON: May 21, 2021 obstructive series 06/30/2020 CT abdomen pelvis FINDINGS: There are small bilateral pleural effusions. There is infiltrate and/or atelectasis in both lower lungs, especially at the dependent lower lobes. Cardiomegaly. Status post sternotomy. No hepatic, splenic, pancreatic, adrenal or renal space-occupying mass lesion is evident on this limi sonali noncontrast examination. No bile duct or pancreatic duct dilatation. No urinary tract calculus or hydroureteronephrosis. There is a Robles catheter and some air in the evacuated urinary bladder. The prostate gland appears u nremarkable. Normal caliber of the abdominal aorta, with atherosclerotic calcification. There is prominent calcifi cation at the celiac and especially superior mesenteric arteries as well as calcification at the orig in of the inferior mesenteric artery. There is prominent calcification of the common and external nmia ac and femoral arteries. No intraperitoneal or retroperitoneal or pelvic mass lesion or adenopathy or ascites is noted. There is prominent gaseous distention of the transverse colon and hepatic flexure. There is a mediall y directed cecum consistent with retained cecal mesentery. There is a prominent amount of fecal mater ial in the cecum and ascending colon and the descending and to a lesser extent sigmoid colon. No evidence of appendicitis. No bowel obstruction, bowel wall thickening, pneumatosis or intraperiton eal free air is detected. There are couple of small supraumbilical fat-containing ventral abdominal wall hernias. There is an u mbilical hernia containing fat and a nonobstructed loop of small bowel. Small bilateral fat-containing inguinal hernias. Slightly displaced recent anterior right fifth rib fracture Nondisplaced anterior right sixth rib fracture. Probable chronic posterior left eighth rib fracture deformity. Degenerative change of the thoracic spine. Severe degenerative disc disease at L2-3, L3-4, L4-5 and L 5-S1. IMPRESSION: There is prominent gaseous distention of the transverse colon without thumbprinting or wa ll thickening or pneumatosis. There is a moderately prominent amount of fecal material in the colon. No bowel obstruction is evident. No volvulus is detected. There is a medially directed cecum consistent with retained cecal mesentery No evidence of appendicitis Recent anterior right fifth and sixth rib fractures Reviewed, dictated and finalized at Location A. Reviewed, dictated and finalized at location A. ENTION SERVICES MANAGER IMPRESSION: There is prominent gaseous distention of the transverse colon witho ut thumbprinting or wall thickening or pneumatosis. There is a moderately promi nent amount of fecal material in the colon. No bowel obstruction is evident. No volvulus is detected. There is a medially directed cecum consistent with ret ained cecal mesentery No evidence of appendicitis Recent anterior right fifth and sixth rib fractures
--- NOTE | ~2021-05-09 | XR_ITS ---
EXAMINATION: XR chest 1V portable DATE: 05/14/2021 07:10 INDICATION: Intubated. TECHNIQUE: A single frontal view of the chest was obtained. COMPARISON: Chest single view 05/13/2021 FINDINGS: There are airspace opacities in all right lung zones with a perihilar predominance. There a re airspace opacities in left mid and lower lung zones. No pleural effusion or pneumothorax. Cardiome mohsen is noted. Median sternotomy wires and mediastinal surgical clips are seen, likely from prior cor onary artery bypass grafting. There is a stent in the area of left subclavian artery. The endotrachea l tube tip is 3.1 cm above the karl. The nasogastric tube tip is in the stomach. IMPRESSION: 1. Diffuse lung disease with improvement on the right, consistent with pulmonary edema versus pneumon ia. 2. Cardiomegaly. Reviewed, dictated and finalized at location A. T JOURNALIST IMPRESSION: 1. Diffuse lung disease with improvement on the right, consistent with pulmonar y edema versus pneumonia. 2. Cardiomegaly.
--- NOTE | ~2021-05-09 | XR_ITS ---
EXAMINATION: XR chest 1V portable DATE: 05/29/2021 05:53 INDICATION: Shortness of breath. TECHNIQUE: A single frontal view of the chest was obtained. COMPARISON: Chest single view 05/21/2021 FINDINGS: There are mild airspace opacities in the lower lung zones. No pleural effusion or pneumotho rax. Cardiomegaly is noted. Median sternotomy wires and mediastinal surgical clips are seen, likely f rom prior coronary artery bypass grafting. There is a stent in left subclavian artery. There are prom inent paracardial fat pads. IMPRESSION: 1. Mild airspace opacities in the lower lung zones with improvement on the left, consistent with atel ectasis versus pneumonia. 2. Cardiomegaly. Reviewed, dictated and finalized at location A. ESS INSTRUCTOR IMPRESSION: 1. Mild airspace opacities in the lower lung zones with improvement on the left , consistent with atelectasis versus pneumonia. 2. Cardiomegaly.
--- NOTE | ~2021-05-09 | XR_ITS ---
XR chest 1V portable 05/20/2021 06:15 Indication: Respiratory failure Procedure: AP portable chest Comparison: Comparison to multiple prior studies sequentially, with oldest reviewed study dated 05/2021. Findings: Status post median sternotomy for CABG. Cardiomegaly. Diffuse bilateral airspace disease un changed. Possible small effusions. No pneumothorax. Impression: 1: Stable diffuse bilateral airspace disease which may represent edema and/or pneumonia. 2: Cardiomegaly. Reviewed, dictated and finalized at location A. TCHER LEVELER OPERATOR Impression: 1: Stable diffuse bilateral airspace disease which may represent edema and/or p neumonia. 2: Cardiomegaly.
--- NOTE | ~2021-05-09 | XR_ITS ---
XR abdomen NG/feed tube insert DATE: 05/12/2021 20:04 INDICATION: Orogastric tube placement TECHNIQUE: Portable AP view on 05/12/2021 at 1944 hours COMPARISON: None FINDINGS: NG tube in the body of stomach, the proximal side-port approximately 3.5 cm distal to the d iaphragmatic hiatus. IMPRESSION: Orogastric tube in body of stomach Reviewed, dictated and finalized at Location A. Reviewed, dictated and finalized at location A. RVISOR PAINT ROLLER COVERS
--- NOTE | ~2021-05-09 | US_ITS ---
EXAMINATION: US venous doppler [facility] DATE: 05/30/2021 14:16 INDICATION: Lower limb edema TECHNIQUE: Napoles scale images without and with compression and Doppler images of the bilateral lower e xtremity veins were obtained. COMPARISON: 06/22/2020 FINDINGS: The right common femoral vein, profunda femoral vein, femoral vein, popliteal vein, peroneal trunk, p osterior tibial veins, and greater saphenous vein are patent. The left common femoral vein, profunda femoral vein, femoral vein, popliteal vein, peroneal trunk, po sterior tibial veins, and greater saphenous vein are patent. IMPRESSION: 1. Patent bilateral lower extremity veins. No evidence of deep venous thrombosis. Reviewed, dictated and finalized at location A. UP ENGINEER IMPRESSION: 1. Patent bilateral lower extremity veins. No evidence of deep venous thrombosi s.
--- NOTE | ~2021-05-09 | XR_ITS ---
EXAMINATION: XR abdomen obstructive series EXAM DATE: 05/24/2021 09:58 INDICATION: Colonic ileus. TECHNIQUE: Frontal projection(s) of the abdomen for interpretation. Comparison is made to prior exami nation from 05/23/2021. FINDINGS: Severely distended air-filled colon again noted, probably colonic ileus given no obstructi ng mass on recent CT. No gross free intraperitoneal air. Accounting for differences in technique, the re is no significant interval change. IMPRESSION: Persistent severely distended air-filled colon probably ileus. Reviewed, dictated and finalized at location B. NEER CONDUCTOR
--- NOTE | ~2021-05-09 | CT_ITS ---
EXAMINATION: CT brain wo con DATE: 05/13/2021 13:35 INDICATION: Seizure. Cardiac arrest. TECHNIQUE: Computed tomography (CT) of the head was performed without intravenous contrast. The mA wa s adjusted according to patient size. Iterative reconstruction technique was employed. The dose-lengt h product was 681.00 mGy-cm. COMPARISON: Head CT 05/09/2021, 06/20/2020 FINDINGS: There are scattered areas of low attenuation in the cerebral white matter. There are small old infarcts in left frontal and parietal lobes. There is no intracranial hemorrhage, acute infarctio n, or abnormal intracranial mass lesion. The ventricles are normal in size. There is mild mucosal thi ckening in the ethmoid sinuses. The orbits are normal. The mastoid air cells are normal. IMPRESSION: 1. 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 2. Mild nonspecific cerebral white matter disease, which likely represents chronic small vessel ische khang disease. Reviewed, dictated and finalized at location A. EMIC ASSISTANT IMPRESSION: 1. 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 2. Mild nonspecific cerebral white matter disease, which likely represents developer prover upholstering lang small vessel ischemic disease.
--- NOTE | ~2021-05-09 | XR_ITS ---
EXAMINATION: XR abdomen NG/feed tube insert DATE: 05/22/2021 14:48 INDICATION: Nasogastric tube placement TECHNIQUE: A supine view of the abdomen and lower chest was obtained for evaluation of feeding tube placement. COMPARISON: 05/22/2021 FINDINGS: Nasogastric tube tip in proximal side port in the body of the stomach. Dilated gas-filled loops of tr ansverse colon in the visualized upper abdomen. Left basilar atelectasis. Heart size is normal. Media n sternotomy wires and mediastinal surgical clips are seen, likely from prior coronary artery bypass grafting. Thoracolumbar levorotoscoliosis with severe spondylosis. IMPRESSION: 1. Nasogastric tube tip in the stomach. 2. Nonspecific gaseous distention of the visualized colon. Reviewed, dictated and finalized at location A. R SUPERVISOR
--- NOTE | ~2021-05-09 | XR_ITS ---
EXAMINATION: XR chest 1V portable DATE: 05/16/2021 06:10 INDICATION: Respiratory failure. TECHNIQUE: A single frontal view of the chest was obtained. COMPARISON: Chest single view 05/15/2021 FINDINGS: There are airspace opacities in the perihilar regions and at the lung bases. There are smal l pleural effusions. No pneumothorax. Cardiomegaly is noted. The endotracheal tube tip is 4.6 cm abov e the karl. The nasogastric tube tip is beyond the inferior margin of the radiograph, but at least to the stomach. Median sternotomy wires and mediastinal surgical clips are seen, likely from prior co ronary artery bypass grafting. There is a stent in left subclavian artery. IMPRESSION: 1. Airspace opacities in the perihilar regions and lung bases with interval improvement, consistent w ith pulmonary edema versus pneumonia. 2. Improved small pleural effusions. 3. Cardiomegaly. Reviewed, dictated and finalized at location E. MAINTENANCE WORKER IMPRESSION: 1. Airspace opacities in the perihilar regions and lung bases with interval imp rovement, consistent with pulmonary edema versus pneumonia. 2. Improved small pleural effusions. 3. Cardiomegaly.
--- NOTE | ~2021-05-09 | XR_ITS ---
EXAMINATION: XR chest 1V portable DATE: 05/18/2021 06:07 INDICATION: Respiratory failure. TECHNIQUE: A single frontal view of the chest was obtained on 2 radiographs. COMPARISON: Chest single view 05/17/2021 FINDINGS: There are airspace opacities in the lower lung zones. There is a small left pleural effusio n. No pneumothorax. Cardiomegaly is noted. Median sternotomy wires and mediastinal surgical clips are seen, likely from prior coronary artery bypass grafting. The nasogastric tube tip is in the stomach. The endotracheal tube tip is 2.5 cm the karl. There is a stent in left subclavian artery. IMPRESSION: 1. Airspace opacities in the lower lung zones with mild worsening on the right and improvement on the left, consistent with atelectasis versus pneumonia. 2. Stable small left pleural effusion. 3. Cardiomegaly. Reviewed, dictated and finalized at location E. F OPERATOR LOCK TENDER
--- NOTE | ~2021-05-09 | XR_ITS ---
XR toe 1st RT min 2V DATE: 05/09/2021 20:00 INDICATION: Fall today. Right great toe injury. Swelling and bruising at dorsum of toe. TECHNIQUE: 3 views COMPARISON: None FINDINGS: There is a linear intra-articular fracture of the lateral aspect of the base of the distal phalanx of the great toe, with transverse fracture extending through the metaphyseal area. There is m inimal displacement or angulation. Prominent osteoarthritis at the first metatarsophalangeal joint. IMPRESSION: Linear minimally displaced intra-articular fracture of the base and metaphysis of the dis fish phalanx Reviewed, dictated and finalized at location A. NO CASHIER IMPRESSION: Linear minimally displaced intra-articular fracture of the base and metaphysis of the distal phalanx
--- NOTE | ~2021-05-09 | CT_ITS ---
EXAMINATION: CT brain wo con DATE: 05/22/2021 20:11 INDICATION: Confusion. TECHNIQUE: Computed tomography (CT) of the head was performed without intravenous contrast. The mA wa s adjusted according to patient size. Iterative reconstruction technique was employed. The dose-lengt h product was 756.67 mGy-cm. COMPARISON: Head CT 05/13/2021 FINDINGS: There are old infarcts involving the left frontal lobe and bilateral basal ganglia. There a re scattered areas of low attenuation in the cerebral white matter. There is no intracranial hemorrh age, acute infarction, or abnormal intracranial mass lesion. The ventricles are normal in size. There is mild mucosal thickening in the paranasal sinuses. The orbits are normal. The mastoid air cells ar e normal. IMPRESSION: 1. Old infarcts involving the left frontal lobe and bilateral basal ganglia. 2. Stable mild nonspecific cerebral white matter disease, which likely represents chronic small vesse l ischemic disease. Reviewed, dictated and finalized at location A. NG MACHINE OPERATOR IMPRESSION: 1. Old infarcts involving the left frontal lobe and bilateral basal ganglia. 2. Stable mild nonspecific cerebral white matter disease, which likely represen ts chronic small vessel ischemic disease.
--- NOTE | ~2021-05-09 | XR_ITS ---
EXAMINATION: XR abdomen obstructive series DATE: 05/23/2021 08:39 INDICATION: Ileus TECHNIQUE: Frontal supine and upright views of the abdomen were obtained. COMPARISON: 05/22/2021 FINDINGS: Nasogastric tube tip in the stomach. Prominent gaseous distention of the colon. Large amount of stool in either the cecum or sigmoid colon. No dilated loops of gas-filled small bowel to suggest obstruct ion. Cardiomegaly. Median sternotomy wires and mediastinal surgical clips are seen, likely from prior coronary artery bypass grafting. IMPRESSION: 1. Gaseous distention of the colon consistent with provided history of ileus. 2. Cardiomegaly. Reviewed, dictated and finalized at location A. ORT STAFF
--- NOTE | ~2021-05-09 | XR_ITS ---
XR chest 1V portable DATE: 05/09/2021 19:19 INDICATION: Syncope for 2 days. History of COPD. TECHNIQUE: Portable AP views on 05/09/2021 at 1913 and 1915 hours COMPARISON: 11/21/2020 PA and lateral chest FINDINGS: Status post sternotomy. Cardiomegaly. No pulmonary infiltrate or consolidation, pleural eff usion, pulmonary vascular congestion or pneumothorax is evident. IMPRESSION: Cardiomegaly Reviewed, dictated and finalized at location A. OLEUM REFINING EQUIPMENT OPERATOR IMPRESSION: Cardiomegaly
--- NOTE | ~2021-05-09 | XR_ITS ---
EXAMINATION: XR chest 1V portable DATE: 05/12/2021 10:47 INDICATION: Shortness of breath. TECHNIQUE: A single frontal view of the chest was obtained on 2 radiographs. COMPARISON: Chest single view 05/09/2021, chest CT 06/20/2020 FINDINGS: There is mild atelectasis in right lower lung zone and left mid and lower lung zones. No pl eural effusion or pneumothorax. Cardiomegaly is noted. Median sternotomy wires and mediastinal surgic al clips are seen, likely from prior coronary artery bypass grafting. There are prominent paracardial fat pads. A vascular stent overlies the left superior mediastinum, likely in left subclavian artery. IMPRESSION: 1. Mild atelectasis in right lower lung zone and left mid and lower lung zones. 2. Cardiomegaly. Reviewed, dictated and finalized at location A. GER DEVELOPMENTAL
--- NOTE | ~2021-05-09 | XR_ITS ---
EXAMINATION: XR abdomen NG/feed tube insert DATE: 05/22/2021 18:44 INDICATION: Nasogastric tube placement. TECHNIQUE: An upright view of the abdomen was obtained. COMPARISON: Abdomen radiograph at 2:37 PM, CT abdomen and pelvis 05/21/2021 FINDINGS: The lower abdomen is excluded. The nasogastric tube tip is in the stomach. The transverse c olon is distended. IMPRESSION: 1. Nasogastric tube tip in the stomach. 2. Distended transverse colon, likely adynamic ileus. Reviewed, dictated and finalized at location A. APPLICATION SUPPORT SPECIALIST
--- NOTE | ~2021-05-09 | XR_ITS ---
XR ankle LT 2V DATE: 05/09/2021 20:00 INDICATION: Fall today. Pain and swelling at lateral aspect of ankle TECHNIQUE: AP and lateral views COMPARISON: None FINDINGS: Mild plantar calcaneal enthesopathy. No fracture or dislocation of the ankle or disruption of the ankle mortise. IMPRESSION: No fracture or dislocation of the ankle Reviewed, dictated and finalized at location A. SPRAY OPERATOR
--- NOTE | ~2021-05-09 | US_ITS ---
EXAMINATION: US renal BI DATE: 05/11/2021 09:16 INDICATION: Acute kidney injury. TECHNIQUE: Multiple ultrasound grayscale images of the kidneys were obtained. COMPARISON: CT abdomen and pelvis 06/20/2020 FINDINGS: Sensitivity is decreased by obesity. The right kidney measures 9.7 x 5.4 x 5.5 cm. The left kidney me asures 11.2 x 5.6 x 5.4 cm. The kidneys demonstrate normal parenchymal echogenicity. There is no hydr onephrosis. The bladder is decompressed by a Robles catheter. IMPRESSION: 1. Normal kidneys. No hydronephrosis. Reviewed, dictated and finalized at location A. LLURGY TEACHER
--- NOTE | ~2021-05-09 | XR_ITS ---
EXAMINATION: XR chest 1V portable DATE: 05/21/2021 06:26 INDICATION: Respiratory failure TECHNIQUE: frontal view of the chest was obtained. COMPARISON: Chest radiograph dated 05/20/2021 FINDINGS: Basilar predominant hazy airspace opacities throughout both lungs. Blunting at the costophrenic angle s consistent with small bilateral posteriorly layering pleural effusions. No pneumothorax. Cardiomega ly. Median sternotomy wires and mediastinal surgical clips are seen, likely from prior coronary arter y bypass grafting. Standing one of the great vessels arising from aortic arch. Severe thoracic spondy losis. IMPRESSION: 1. Unchanged relatively hazy opacities throughout both lungs consistent with likely small bilateral p osteriorly layering pleural effusions with associated atelectasis versus less likely pulmonary edema or pneumonia. 2. Cardiomegaly. Reviewed, dictated and finalized at location A. S AND BUSINESS DEVELOPMENT MANAGER IMPRESSION: 1. Unchanged relatively hazy opacities throughout both lungs consistent with li wendy small bilateral posteriorly layering pleural effusions with associated ate lectasis versus less likely pulmonary edema or pneumonia. 2. Cardiomegaly.
--- NOTE | ~2021-05-09 | XR_ITS ---
XR chest 1V portable 05/19/2021 05:43 Indication: Respiratory failure Procedure: AP portable chest Comparison: Comparison to multiple prior studies sequentially, with oldest reviewed study dated 04/2021. Findings: Status post median sternotomy for CABG. Cardiomegaly. Diffuse bilateral airspace disease wh ich may represent pneumonia or edema. There is a stent in the left subclavian artery. Small left pleu ral effusion. Cardiomegaly. Impression: 1: Stable diffuse bilateral airspace disease which may represent edema or pneumonia. Reviewed, dictated and finalized at location A. MERCERIZER OPERATOR HELPER Impression: 1: Stable diffuse bilateral airspace disease which may represent edema or pneum onia.
--- NOTE | ~2021-05-09 | XR_ITS ---
EXAMINATION: XR abdomen obstructive series EXAM DATE: 05/21/2021 11:33 INDICATION: Nausea, vomiting, Constipation. TECHNIQUE: Frontal upright projection of the upper abdomen, frontal projection of the lower abdomen f or interpretation. Correlation is made to CT scan 06/20/2020. FINDINGS: There is large amount of colonic gas, relatively small amount of colonic stool. Colonic ob struction at the splenic flexure, or possibly colonic volvulus are considerations. Rectal vault appea rs relatively empty. Mild to moderate thoracolumbar levoscoliosis. Moderate bony degenerative changes . No free intraperitoneal gas suspected. IMPRESSION: Severely distended gas-filled colon which could indicate obstruction or possibly volvulu s; recommend CT. Reviewed, dictated and finalized at location B. HOLOGIST INDUSTRIAL ORGANIZATIONAL IMPRESSION: Severely distended gas-filled colon which could indicate obstructi on or possibly volvulus; recommend CT.
--- NOTE | 2021-05-09 17:51 | ECG_ITS ---
Measurements Intervals [place] Rate: 101 P: AL: 0 QRS: 65 QRSD: 113 T: 22 QT: 353 QTc: 458 Interpretive Statements ATRIAL FIBRILLATION WITH RAPID VENTRICULAR RESPONSE BASELINE ARTIFACT- I, II, III, AVR, AVL, AVF, V1-V6 ABNORMAL ECG Electronically Signed On 05-09-2021 20:25:45 TUBER MACHINE OPERATOR HELPER by Andrey Newman D.O.
[2021-05-09 18:29] LABS: Basophils Absolute Auto 0.1 K/mm3 (0.0-0.1); Basophils Percent Auto 0.4 % (0.2-1.2); Eosinophils Absolute Auto 0.2 K/mm3 (0-0.3); Eosinophils Percent Auto 1.3 % (0-4.4); Hematocrit 27.8 % (42.0-52.0); Immature Granulocyte Absolute 0.04 K/mm3 (0.00-0.031); Immature Granulocyte Percent A 0.3 % (0-0.5); Lymphocytes Absolute Auto 0.86 K/mm3 (0.9-3.2); Lymphocytes Percent Auto 6.8 % (18.3-44.2); Mean Corpuscular HGB Conc 32.4 g/dl (32-36); Mean Corpuscular Hemoglobin 28.5 pg (26-34); Mean Platelet Volume 10.3 fl (7.4-10.4); Monocytes Absolute Auto 0.9 K/mm3 (0.1-0.6); Monocytes Percent Auto 6.7 % (2.6-8.5); Neutrophils Absolute Auto 10.7 K/mm3 (1.3-6.7); Neutrophils Percent Auto 84.5 % (45.5-73.1); Platelet Count Result 364 k/mm3 (150-375); Red Blood Count 3.16 M/mm3 (4.6-6.20); Red Cell Distribution Width 14.9 % (11.5-14.5); White Blood Count 12.6 K/mm3 (4.5-10.0)
[2021-05-09 18:37] LABS: Alanine Aminotransferase 17 U/L (4-50); Albumin Level 4.1 g/dL (3.5-5.1); Alkaline Phosphatase 86 U/L (38-126); Anion Gap 13 mmol/L (8-16); Aspartate Amino Transferase 41 U/L (17-59); Blood Urea Nitrogen 18 mg/dL (9-20); Calcium 8.6 mg/dL (8.4-10.2); Carbon Dioxide 23 mmol/L (22-30); Chloride 92 mmol/L (98-107); Estimated CRCL calculation 41 ml/min; Estimated Glomerular Filt Rate 31; Glucose 139 mg/dL (65-110); Potassium 5.1 mmol/L (3.4-5.0); Sodium 128 mmol/L (137-145)
[2021-05-09] MEDS: SODIUM CHLORIDE 0.9% IV 1,000 ML 999 ML (20:11)
--- NOTE | 2021-05-09 20:55 | ED.SYNCOPE ---
HPI - Syncope General Chief Complaint: Syncope Stated Complaint: syncopal, toe painful Time Seen by Provider: 05/09/21 17:51 Source: patient and family Mode of arrival: ambulatory Limitations: no limitations History of Present Illness HPI narrative: 71-year-old with a history of hypertension, CAD s/p stent, A. fib on Eliquis here with complaints of syncopal episode since this week. states that he fell 3 times patient states that he was fell down 9 steps. He denies loss of consciousness. Patient denied any chest pain or palpitation prior to the event. His states that he had 2 other episodes in the beginning of the week. No history of nausea, vomiting or diarrhea. Denies any blood in the stool or black-colored stool. MD complaint: almost passed out Prodromal symptoms: none Witnessed: Yes - by Other (by family) Injuries sustained associated with event: head and LUE Current symptoms: none History: previous syncopal episode (has stent placed in 2019) Treatments prior to arrival: none Related Data Home Medications Medication Instructions Recorded Confirmed atorvastatin 40 mg PO DAILY 06/21/20 04/16/21 furosemide 40 mg PO DAILY 06/21/20 04/16/21 losartan 25 mg PO DAILY 06/21/20 04/16/21 potassium chloride 20 meq PO DAILY 06/21/20 04/16/21 Allergies Allergy/AdvReac Type Severity Reaction Status Date / Time No Known Allergies Allergy Verified 04/16/21 10:40 Review of Systems Review of Systems: All systems reviewed & are unremarkable except as noted in HPI and below Constitutional: Constitutional: Reports no additional constitutional complaints Eyes: Eyes: Reports no additional eye complaints ENT: Reports system reviewed and no additional complaints, except as documented Cardiovascular: Cardiovascular: Reports no additional cardiovascular complaints Respiratory: Respiratory: Reports no additional respiratory complaints Gastrointestinal: Gastrointestinal: Reports no additional gastrointestinal complaints Genitourinary: Genitourinary: Reports no additional male genitourinary complaints Musculoskeletal: Musculoskeletal: Reports no additional musculoskeletal complaints Neurologic: Reports system reviewed and no additional complaints, except as documented Psychiatric: Psychiatric: Reports no additional psychiatric complaints PMF Past Medical History Medical History Alcohol abuse Asbestosis Atrial fibrillation with rapid ventricular response BMI over 35 Chronic hypercapnic respiratory failure COPD (chronic obstructive pulmonary disease) COPD (chronic obstructive pulmonary disease) with emphysema Coronary artery disease Followed by Dr. Hill Encounter for immunization (04/03/15) Essential hypertension History of ventricular fibrillation VFib arrest during cardiac catheterization December 2018 and subsequent cardiogenic shock cardiac in her aortic balloon pump emergent echo demonstrating EF of 35% Hypercholesterolemia Irritation of eye Irritation of left eye Lumbar spondylosis with myelopathy Paroxysmal atrial fibrillation Restless leg STEMI (ST elevation myocardial infarction) Tobacco use Surgical History Surgical History History of cardiac catheterization December 2018: High-grade stenosis of left main coronary, moderate to severe diffuse disease of proximal to mid LAD, high-grade eccentric ulcerated plaque in the mid segment of the dominant RCA. During catheterization the patient went into VFib arrest much shock x1 Hx of CABG CABG with [place] to LAD, left radial artery to OM 2, reverse saphenous vein graft 2 p.o. be of RCA performed by Dr. Worrell December 2019 at [facility]. Family History Family History Mother Bone cancer Father Alcoholism Sibling Healthy adult male 62 years old Social History Social History (Reviewed 05/09/21 @ 21:06 by
[2021-05-09] MEDS: SODIUM CHLORIDE 0.9% IV 1,000 ML 125 ML IV CONT (21:09)
[2021-05-09 21:10] LABS: SARS-CoV-2 RNA PCR Negative
--- NOTE | 2021-05-09 23:21 | PC.NURSE ---
assumed care of patient
[2021-05-10] VITALS (40 sets, daily range): BP systolic 75–126; BP diastolic 50–103; PULSE 79–129; RESP 16–24; TEMP 36.6; O2SAT 92–99; BMI 39.1
--- NOTE | 2021-05-10 | ECHO_ITS ---
Patient Info Name: Zack Dai Age: 71 years : 1950 Gender: Male Ht: 71 in Wt: 280 lbs BSA: 2.57 m2 HR: 111 bpm BP: 112 / 59 mmHg Heart Rhythm: Sinus Rhythm Technical Quality: Poor Exam Date: 05/10/2021 1:25 PM Exam Location: [facility] Pulmonary Patient Status: Inpatient Admit Date: 05/09/2021 Staff Ordering Physician: Jvaier Bai MD Imaging Account Manager: Ria Witt RDCS Attending Provider: Javier Bai MD Exam Type: CA echo dop color flow w con Study Info Indications R55 - Syncope and collapse Complete two-dimensional, color flow and Doppler transthoracic echocardiogram is performed with contrast to opacify the left ventricle and to improve the deliniation of the left ventricle endocardial borders. Contrast/Agitated Saline Contrast/Ag. Saline: Definity Amount: 10.00 ml Existing IV Access: Yes IV Access Condition: patent with no signs of infiltration Reason for Poor Study: patient body habitus Summary 1. Technical difficult study with limited views. Regional wall motion assessment limited due to poor endomyocardial border definition in several views despite definity echo contrast enhancement. 2. Left ventricular chamber dimension is normal. 3. Left ventricular systolic function is normal, estimated at 65-70%. 4. There is mildly increased left ventricular wall thickness. 5. The left ventricular diastolic function is grade II diastolic dysfunction. 6. There is no aortic valve stenosis. Left Ventricle Technical difficult study with limited views. Regional wall motion assessment limited due to poor endomyocardial border definition in several views despite definity echo contrast enhancement. Left ventricular chamber dimension is normal. Left ventricular systolic function is normal, estimated at 65-70%. There is mildly increased left ventricular wall thickness. The left ventricular diastolic function is grade II diastolic dysfunction. Right Ventricle Right ventricular chamber dimension is not well visualized. Left Atria Left atrial chamber dimension is normal. Right Atria Right atrial chamber dimension is mildly enlarged. Aortic Valve The aortic valve is not well visualized. There is mild aortic valve sclerosis. There is no aortic valve stenosis. There is no aortic valve regurgitation. Pulmonic Valve The pulmonic valve is not well visualized. Mitral Valve The mitral valve has not well visualized. There is trace mitral valve regurgitation. The mitral valve annulus is severely calcified. Tricuspid Valve The tricuspid valve leaflets are not well visualized. There is trace tricuspid valve regurgitation. No pulmonary hypertension, estimated pulmonary arterial systolic pressure is 13 mmHg. Pericardium/Pleural The pericardium appears not well visualized. Inferior Vena Cava Normal inferior vena cava with >50% collapse upon inspiration consistent with normal right atrial pressure, 5 mmHg. Aorta The aortic root size at the sinus of Valsalva is normal. The prox ascending aorta size is not well visualized. Left Ventricular Outflow Tract Name Value Normal LVOT 2D LVOT Diameter 2.12 cm LVOT
--- NOTE | 2021-05-10 03:19 | PC.NURSE ---
attempted to get to bedside to use urinal became sob wheezing, admitting md in ed request albuterol and Atrovent neb
[2021-05-10] MEDS: IPRATROPIUM BR 0.02% INH SOLN 0.5 MG/2.5 ML VIAL INHALATION ×4 (03:31→20:45)
[2021-05-10] MEDS: ALBUTEROL SULFATE NEB 2.5 MG/0.5 ML INH 5 MG INHALATION (03:31)
--- NOTE | 2021-05-10 04:15 | PM.IMHP ---
H&P: HPI History of Present Illness Date/Time: 05/10/21 04:15 Chief Complaint: syncope Narrative: 71-year-old with a history of hypertension, CAD s/p stent, A. fib on Eliquis here with complaints of syncopal episode since this week. states that he fell 3 times patient states that he was fell down 9 steps. He denies loss of consciousness. Patient denied any chest pain or palpitation prior to the event. His states that he had 2 other episodes in the beginning of the week. No history of nausea, vomiting or diarrhea. Denies any blood in the stool or black-colored stool. [facility] Past Medical History Medical History Alcohol abuse Asbestosis Atrial fibrillation with rapid ventricular response BMI over 35 Chronic hypercapnic respiratory failure COPD (chronic obstructive pulmonary disease) COPD (chronic obstructive pulmonary disease) with emphysema Coronary artery disease Followed by Dr. Hill Encounter for immunization (04/03/15) Essential hypertension History of ventricular fibrillation VFib arrest during cardiac catheterization December 2018 and subsequent cardiogenic shock cardiac in her aortic balloon pump emergent echo demonstrating EF of 35% Hypercholesterolemia Irritation of eye Irritation of left eye Lumbar spondylosis with myelopathy Paroxysmal atrial fibrillation Restless leg STEMI (ST elevation myocardial infarction) Tobacco use Surgical History Surgical History History of cardiac catheterization December 2018: High-grade stenosis of left main coronary, moderate to severe diffuse disease of proximal to mid LAD, high-grade eccentric ulcerated plaque in the mid segment of the dominant RCA. During catheterization the patient went into VFib arrest much shock x1 Hx of CABG CABG with [place] to LAD, left radial artery to OM 2, reverse saphenous vein graft 2 p.o. be of RCA performed by Dr. Worrell December 2019 at [facility]. Family History Family History Mother Bone cancer Father Alcoholism Sibling Healthy adult male 62 years old Social History Social History Social History: 48 years. They have 4 children who reportedly healthy. He is a former smoker at least a pack of cigarettes per day for about 42 years. He used to drink alcohol quite heavily and drink at least a 10 pack a day until his heart attack in December of 2018. He denies any illicit substance use. He used to work in a [employer] but is now retired. Primary care physician: Dr. Thomas Garza Code status: Full code Surrogate decision maker: Tobacco type: cigarettes Second hand tobacco smoke exposure: Yes Alcohol intake: former Alcohol use details: At least a 10 pack per day. Quit December 2018. Substance use: never Substance use type: does not use Additional occupation/education comments: [employer] Gender identity (if verbalized by the patient): Male Sexual Orientation (if Verbalized by the Patient): Straight or Heterosexual Spiritual care concerns: No Meds Home Medications and Allergies Home Medications Medication Instructions Recorded Confirmed Type atorvastatin 40 mg PO DAILY 06/21/20 04/16/21 History furosemide 40 mg PO DAILY 06/21/20 04/16/21 History losartan 25 mg PO DAILY 06/21/20 04/16/21 History potassium chloride 20 meq PO DAILY 06/21/20 04/16/21 History apixaban [Eliquis] 5 mg PO Q12HR 30 Days #60 tablet 11/22/20 04/16/21 Rx aspirin 81 mg PO QAM 60 Days #60 tablet 11/22/20 04/16/21 Rx metoprolol succinate 12.5 mg PO BID 30 Days #0 tablet 11/22/20 04/16/21 Rx albuterol sulfate 90 mcg/actuation 2 inh INHALATION Q6H PRN #18 g 01/08/21 04/16/21 Rx aerosol inhaler budesonide-formoterol HFA 160 2 puff INHALATION Q12HRT #30.6 g 01/08/21 04/16/21 Rx mcg-4.5 mcg/actuation aerosol inh
[2021-05-10] MEDS: AMIODARONE 150 MG/D5W 100 ML 150 MG/100 ML BAG 600 MG IV CONT (05:21)
[2021-05-10] MEDS: AMIODARONE 360 MG/D5W 200 ML 360 MG/200 ML BAG 33.33 MG IV CONT ×2 (05:35→21:36)
[2021-05-10] MEDS: ACETAMINOPHEN 325 MG TABLET 650 MG PO (05:59)
[2021-05-10] MEDS: rOPINIRole HCL 1 MG TABLET PO ×3 (05:59→21:50)
[2021-05-10 06:14] LABS: Basophils Absolute Auto 0.1 K/mm3 (0.0-0.1); Basophils Percent Auto 0.5 % (0.2-1.2); Eosinophils Absolute Auto 0.2 K/mm3 (0-0.3); Eosinophils Percent Auto 2.3 % (0-4.4); Hemoglobin 8.5 g/dL (14.0-18.0); Immature Granulocyte Absolute 0.05 K/mm3 (0.00-0.031); Immature Granulocyte Percent A 0.5 % (0-0.5); Lymphocytes Absolute Auto 1.01 K/mm3 (0.9-3.2); Lymphocytes Percent Auto 10.2 % (18.3-44.2); Mean Corpuscular HGB Conc 32.7 g/dl (32-36); Mean Corpuscular Hemoglobin 28.1 pg (26-34); Mean Corpuscular Volume 85.8 fl (80-100); Mean Platelet Volume 10.1 fl (7.4-10.4); Monocytes Absolute Auto 0.6 K/mm3 (0.1-0.6); Monocytes Percent Auto 6.3 % (2.6-8.5); Neutrophils Percent Auto 80.2 % (45.5-73.1); Platelet Count Result 307 k/mm3 (150-375); Red Blood Count 3.03 M/mm3 (4.6-6.20); Red Cell Distribution Width 14.9 % (11.5-14.5); White Blood Count 9.9 K/mm3 (4.5-10.0)
[2021-05-10 06:34] LABS: Anion Gap 8 mmol/L (8-16); Blood Urea Nitrogen 18 mg/dL (9-20); Calcium 8.1 mg/dL (8.4-10.2); Carbon Dioxide 25 mmol/L (22-30); Chloride 95 mmol/L (98-107); Estimated CRCL calculation 45 ml/min; Estimated Glomerular Filt Rate 35; Glucose 146 mg/dL (65-110); Sodium 128 mmol/L (137-145)
--- NOTE | 2021-05-10 08:54 | PM.CNCAR ---
Assessment and Plan Additional Plan - syncope. - AFib with RVR. history of paroxysmal AFib on Multaq and Xarelto - acute kidney injury. - hyponatremia. - underlying COPD with wheezing. - history of CABG 2019, stent to left subclavian artery 2020 this 71-year-old patient who presents with syncope. Evidence of acute kidney injury. Apparently was found to be in AFib with RVR and currently on IV amiodarone with controlled heart rate. His baseline creatinine 1.1 and on admission was 2.1. Evidence of hyponatremia. On physical examination he does have bilateral lower extremity edema and he has wheezing. - Recommend to continue the IV amiodarone for now. - echocardiogram. - hold of the Lasix. - patient will need breathing treatments given underlying wheezing. - Resume Xarelto 20 mg and aspirin 81 mg daily. - will be very helpful to check orthostatic blood pressure on this patient. His volume status at this point, clinically he does have lower extremity edema which could be related to venous insufficiency however orthostatics will help to define his real volume status. - Agree with holding losartan at this time given Darvin I. monitor renal function. - recommend to exclude urine retention. History of Present Illness History of Present Illness Consult date/time: 05/10/21 08:54 Requesting physician: Pipe Venegas MD Consult reason: Other ( Syncope) Reason For Visit: syncope, darvin Narrative: this 71-year-old patient who follows up with Dr. rivera. has a past medical history of ST-elevation myocardial infarction and cardiac arrest in setting of acute CA, status post CABG x3 with [place] to LAD, radial to OM2, SVG to RCA [address] Dumont paroxysmal atrial fibrillation, COPD and history of heavy tobacco abuse. also past history of postoperative nausea, vomiting. 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 currently on Multaq and was recently switched from Eliquis to Xarelto due to cost. Presents to the hospital with recurrent falling down. heart rate elevated 120 beats per minute. Blood pressure stable 120 systolic. at home he takes Lasix 40 mg p.o. daily. he states that he fell down while going steps on Friday night and then again he fell down on Friday night. Both time lost consciousness. He hurt his right foot. He denied chest pain, shortness of breath, palpitations, cough, fever or chills. He does have chronic lower extremity edema. He is now sitting in the ER and I hear him wheezing. He denies using oxygen at home. so [place] admission 129, creatinine 2.1 with a baseline in November 2020 was 1.1, COVID negative White cell count on admission 12.6, hemoglobin 10 EKG reviewed analyze myself is of poor quality due to underlying artifact however could be sinus rhythm with frequent premature atrial contractions or could be atrial fibrillation. Carotid ultrasound June 2020 less than 50% stenosis. Last echo February 2021 ejection fraction 65%, mild LVH, mild biatrial enlargement and type 1 diastolic dysfunction. Review of Systems Constitutional: Constitutional: Denies chills, Reports fatigue, Denies fever(s), Reports frequent falls and Denies poor appetite Eyes: Eyes: Denies eye discharge, Denies loss of vision, Denies eye pain and Denies photophobia ENT: Denies dizziness, Denies epistaxis, Denies nasal congestion and Denies sore throat Cardiovascular: Cardiovascular: Denies chest pain, Reports syncope, Reports pedal edema, Denies leg edema, Denies palpitations, Denies dyspnea, Reports dyspnea on exertion and Denies orthopnea Respiratory: Respiratory: Denies cough, Reports dyspnea on exertion and Reports wheezing Gastrointestinal: Gastrointestinal: Denies abdom
[2021-05-10] MEDS: PANTOPRAZOLE SODIUM IV 40 MG VIAL IV PUSH ×2 (09:16→21:50)
[2021-05-10] MEDS: ASPIRIN 81 MG ENTERIC TABLET PO (09:19)
[2021-05-10] MEDS: METOPROLOL SUCCINATE EXT REL 25 MG TABCR PO (09:20)
[2021-05-10 10:09] LABS: Iron 40 ug/dL (49-181)
[2021-05-10 10:19] LABS: Percent Iron Saturation 16 % (20-50)
[2021-05-10] MEDS: SODIUM CHLORIDE 0.9% IV 1,000 ML 100 ML IV CONT (10:45)
[2021-05-10] MEDS: FLUTICASONE/SALMETEROL 115-21 MCG INHALER 1 PUFF 2 PUFF INHALATION ×2 (10:45→20:45)
[2021-05-10] MEDS: ALBUTEROL SULFATE NEB 2.5 MG/0.5 ML INH INHALATION ×2 (10:45→15:03)
[2021-05-10] MEDS: AMIODARONE 360 MG/D5W 200 ML 360 MG/200 ML BAG 16.67 MG IV CONT (13:00)
[2021-05-10] MEDS: PERFLUTREN LIPID MICROSPHERES 1.5 ML VIAL DILUTED TO 10 ML TOTAL VOLUME IV PUSH (13:55)
--- NOTE | 2021-05-10 16:25 | ADMGEN ---
This patient, Zack Dai, was admitted to [facility]. Patient/family oriented to hospital policies and general routines including ID bracelet, bed and alarms, visiting hours, pain management, procedures, bathroom and other care routines, personal items, smoking policy, room service/diet, and visiting hours. Information on how to activate the Rapid Response Team has been discussed. Patient/Family are encouraged to report perceived risks to care and to ask questions if they do not understand what they are told or what they should do.
--- NOTE | 2021-05-10 16:38 | PM.IMPN ---
Progress Note: A&P Assessment and Plan (1) Syncopal episodes: Qualifiers: Syncope type: unspecified Qualified Code(s): R55 - Syncope and collapse Code(s): R55 - Syncope and collapse Status: Acute Assessment and Plan: Multiple syncopal episodes this week. EKG with atrial fibrillation with mildly elevated rate. COVID test negative. He does have TRACY to suggest dehydration and probable orthostatic HoTN. Also with AFib/RVR which also may be contributing to his syncopal episodes. He is on Amio drip now. (2) TRACY (acute kidney injury): Code(s): N17.9 - Acute kidney failure, unspecified Status: Acute Assessment and Plan: Baseline Cr 0.9-1.2. Cr 2.1 on admission. He is on Lasix and Losartan on admission. He is not currently on IV fluids. Will place Rob[place] to exclude retention and that he becomes more SOB when out of bed. Check renal US. (3) Atrial fibrillation with rapid ventricular response: Code(s): I48.91 - Unspecified atrial fibrillation Status: Resolved Assessment and Plan: EKG on admission showing possible AFib. Unclear if this is chronic. Xarelto resumed. He was started on Amio drip to control rate. Echo showing EF 65-70% with Grade II diastolic dysfunction. Called to the room because the patietns' SBP dipped to 74 when he converted but BP has improved since. Continue Amio drip. Appreciate Cardiology input (4) COPD (chronic obstructive pulmonary disease) with emphysema: Qualifiers: Emphysema type: unspecified Qualified Code(s): J43.9 - Emphysema, unspecified Code(s): J43.9 - Emphysema, unspecified Status: Acute Assessment and Plan: Patient with COPD and hx of tobacco abuse. Patient is wheezing but not on O2. He states wheezing is chronic for him. Nebs started in the ED. Patient was allowed to stand to void and he became extremely SOB and wheezing worsened. Symptoms improved when returned to bed; neb treatment was being given but audie already was feeling better. Will add Solu-Medrol to see if this improves his symptoms. PT/OT when he is more stable (5) Anemia: Code(s): D64.9 - Anemia, unspecified Status: Acute Assessment and Plan: Hgb mostly 10-11 as baseline. Hgb 9.0 on admission and has dropped to 8.5. Iron studies consistent with iron deficiency. B12 level also low end of normal. Add iron. Check MMA. Continue PPI (6) Nail avulsion of toe: Qualifiers: Encounter type: initial encounter Qualified Code(s): S91.209A - Unspecified open wound of unspecified toe(s) with damage to nail, initial encounter Code(s): S91.209A - Unspecified open wound of unspecified toe(s) with damage to nail, initial encounter Status: Acute Assessment and Plan: Nail avulsion with right great toe distal phalanx fracture. Xray on admission showing there is a linear intra-articular fracture of the lateral aspect of the base of the distal phalanx of the great toe, with transverse fracture extending through the metaphyseal area. There is minimal displacement or angulation. Continue routine wound care for the nail. (7) Essential hypertension: Code(s): I10 - Essential (primary) hypertension Status: Acute Assessment and Plan: Patient's blood pressure was reviewed on 05/10 Blood pressure soft at times. Will continue current medications. Place paramenters on metoprolol (8) Hyperlipidemia: Qualifiers: Hyperlipidemia type: unspecified Qualified Code(s): E78.5 - Hyperlipidemia, unspecified Code(s): E78.5 - Hyperlipidemia, unspecified Status: Acute Assessment and Plan: LFTs normal except TBili at 2.0. Repeat in the morning with fractionaed bili. Continue Lipitor. (9) CAD (coronary artery disease): Qualifiers: Associated angina: unspecified whether angina present Coronary Disease-Associated Artery/Lesion type: unspecified vessel
--- NOTE | 2021-05-10 16:47 | PC.NURSE ---
DR SUMNER CONTACTED REGARDING PT. DIRECTED TO CONTACT CARDIOLOGY. DR LINARES ON CONSULT UNABLE TO CONTACT, TOMEKA UNABLE TO CONTACT, SHELBY SHAW.
--- NOTE | 2021-05-10 16:51 | PC.NURSE ---
PT SAT ON EDGE OF BED TO URINATE, PT BECAME OVERWHELMINGLY SHORT OF BREATH. ATTEMPTED TO CONTACT MULTIPLE PROVIDERS. PT HELPED BACK INTO BED.
[2021-05-10 17:09] LABS: Base Excess ABG -3.1 mEq/l (+/-2.0); Fractional Inspired Oxygen 28 %; HCO3 ABG 21.8 mEq/l (22.0-26.0); Oxygen Content ABG 14.3 %vol (16.0-22.0); Oxyhemoglobin 97.4 % THb (90.0-100.0); PCO2 ABG 38.1 mmHg (35.0-45.0); PO2 ABG 157.3 mmHg (80.0-100.0); PO2 FiO2 Ratio Arterial Blood 5.62 %; Total Hemoglobin 10.2 g/dL (12.0-18.0); pH ABG 7.375 (7.350-7.450)
[2021-05-10 17:10] LABS: Device NASAL CANNULA; Site Drawn RIGHT BRACHIAL
[2021-05-10] MEDS: IPRATROPIUM BR 0.02% INH SOLN 0.5 MG/2.5 ML VIAL (17:13)
[2021-05-10] MEDS: AMIODARONE 150 MG/D5W 100 ML 150 MG/100 ML BAG 300 MG IV CONT (17:45)
[2021-05-10] MEDS: RIVAROXABAN 20 MG TABLET PO (18:07)
[2021-05-10] MEDS: methylPREDNISolone SOD SUCC 125 MG VIAL 60 MG IV PUSH (18:54)
[2021-05-10] MEDS: CYANOCOBALAMIN INJ 1,000 MCG/ML VIAL 1000 MCG IM (18:57)
--- NOTE | 2021-05-10 20:33 | PC.NURSE ---
At 1805 Amiodarone bolus given as ordered over 20 minutes. The currently infusing amiodarone drip was increased to 1 mg/min per order from current hanging bag that was previously running at 0.5 mg/min.
--- NOTE | 2021-05-10 20:37 | PC.NURSE ---
1919 Report given to oncoming cnc machinist 2nd shift EMMANUEL Stone
[2021-05-10] MEDS: ATORVASTATIN 40 MG TABLET PO (21:50)
[2021-05-11] VITALS (28 sets, daily range): BP systolic 84–130; BP diastolic 60–102; PULSE 103–124; RESP 18–26; TEMP 36.7–37.2; O2SAT 91–96
[2021-05-11] MEDS: methylPREDNISolone SOD SUCC 125 MG VIAL 60 MG IV PUSH ×5 (00:40→23:24)
[2021-05-11] MEDS: IPRATROPIUM BR 0.02% INH SOLN 0.5 MG/2.5 ML VIAL INHALATION ×4 (02:37→19:47)
[2021-05-11] MEDS: rOPINIRole HCL 1 MG TABLET PO ×3 (06:12→21:46)
[2021-05-11 06:52] LABS: Basophils Percent Auto 0.2 % (0.2-1.2); Hematocrit 24.8 % (42.0-52.0); Immature Granulocyte Absolute 0.04 K/mm3 (0.00-0.031); Immature Granulocyte Percent A 0.4 % (0-0.5); Lymphocytes Absolute Auto 0.38 K/mm3 (0.9-3.2); Mean Corpuscular HGB Conc 32.3 g/dl (32-36); Mean Corpuscular Hemoglobin 28.3 pg (26-34); Mean Corpuscular Volume 87.6 fl (80-100); Mean Platelet Volume 9.8 fl (7.4-10.4); Monocytes Absolute Auto 0.1 K/mm3 (0.1-0.6); Monocytes Percent Auto 1.3 % (2.6-8.5); Neutrophils Percent Auto 94.1 % (45.5-73.1); Platelet Count Result 302 k/mm3 (150-375); Red Blood Count 2.83 M/mm3 (4.6-6.20); Red Cell Distribution Width 15.3 % (11.5-14.5); White Blood Count 9.6 K/mm3 (4.5-10.0)
[2021-05-11 07:15] LABS: Alanine Aminotransferase 21 U/L (4-50); Albumin Level 3.6 g/dL (3.5-5.1); Alkaline Phosphatase 78 U/L (38-126); Anion Gap 11 mmol/L (8-16); Aspartate Amino Transferase 57 U/L (17-59); Bilirubin Indirect 0.8 mg/dL (0-1.1); Blood Urea Nitrogen 12 mg/dL (9-20); Calcium 8.2 mg/dL (8.4-10.2); Carbon Dioxide 24 mmol/L (22-30); Chloride 96 mmol/L (98-107); Creatine Kinase 1172 U/L (55-170); Estimated CRCL calculation 72 ml/min; Estimated Glomerular Filt Rate 55; Glucose 250 mg/dL (65-110); Magnesium 2.1 mg/dL (1.6-2.3); Phosphorus 2.7 mg/dL (2.5-4.5); Potassium 4.3 mmol/L (3.4-5.0); Sodium 131 mmol/L (137-145)
--- NOTE | 2021-05-11 07:52 | ECG_ITS ---
Measurements Intervals [place] Rate: 120 P: NV: 0 QRS: 86 QRSD: 103 T: 30 QT: 342 QTc: 485 Interpretive Statements ATRIAL FLUTTER/TACHYCARDIA WITH RAPID VENTRICULAR RESPONSE DELAYED PRECORDIAL R/S TRANSITION BORDERLINE ST-T WAVE ABNORMALITY- INFERIOR LEADS ABNORMAL ECG Electronically Signed On 05-11-2021 9:31:58 JAVA ANALYST by Andrey Newman D.O.
[2021-05-11] MEDS: SODIUM CHLORIDE 0.9% IV 1,000 ML 100 ML IV CONT (08:54)
[2021-05-11] MEDS: PANTOPRAZOLE SODIUM IV 40 MG VIAL IV PUSH ×2 (08:55→21:45)
[2021-05-11] MEDS: CYANOCOBALAMIN 1,000 MCG TABLET 1000 MCG PO (08:57)
[2021-05-11] MEDS: ASPIRIN 81 MG ENTERIC TABLET PO (08:57)
[2021-05-11] MEDS: FERROUS SULFATE 324 MG TABLET PO ×2 (08:57→16:29)
--- NOTE | 2021-05-11 09:13 | PM.PNCARD ---
Progress Note: A&P Additional Plan 71-year-old man with: Ischemic heart disease surgical revascularization in 2020. Doing well from that perspective. Current echocardiogram demonstrates LV systolic function to be vigorous. He presents with syncopal episode of unclear etiology. We do see that he is back in atrial flutter which was cardioverted medically last year with amiodarone. Amiodarone has now been discontinued following this as an outpatient. He is now back out of rhythm and clearly there should be some strategy to restore sinus rhythm. IV amiodarone was started last evening by physician solution strategist. This is not an ideal choice for the long-term in this gentleman regarding long-term medical risk/toxicity. I will stop this this morning and replace this with oral sotalol. Hopefully this will restore sinus rhythm once again. If it does not we will need to plan for electrical cardioversion prior to discharge. We will discontinue the amiodarone drip in the oral metoprolol and replace it with sotalol. John Ocampo MD [facility] Subjective Date/time seen: Date of service: 05/11/21 09:13 Interval history: Follow-up visit in this 71-year-old man with: Coronary artery disease coronary bypass grafting within the last couple of years presenting to the hospital with syncopal episodes of unclear etiology. Patient has a history of paroxysmal AFib/atrial flutter. Patient is supine in the bed receiving intravenous amiodarone states that he feels well currently. Currently still in atypical atrial flutter with 2-1 conduction heart rate about 120. Exam Const: General: comfortable and no acute distress Other: Morbidly obese man in no distress in supine position HENMT: Mouth: Yes moist mucous membranes Eyes: Sclera: sclerae normal Neck: Neck: supple Other: No bruits, hard to assess JVD given obesity Resp: Effort & Inspection: normal respiratory effort Other: Breath sounds are clear anteriorly Cardio: Rate: tachycardic Rhythm: regular rhythm GI: GI Palp: Yes Soft to palpation Auscultation: normal bowel sounds Skin: General skin exam: normal color Neuro: Cognition (Neuro): normal cognition Extrem: Other: Very obese mild pretibial edema Objective Data Vital Signs Vital Signs: Vital Signs - 24 hr 05/10/21 09:20 05/10/21 10:00 05/10/21 10:46 Temperature Pulse Rate 83 84 Respiratory Rate 20 Blood Pressure 105/59 L Pulse Oximetry 96 97 05/10/21 10:47 05/10/21 10:58 05/10/21 11:00 Temperature Pulse Rate 79 81 79 Respiratory Rate 20 18 22 H Blood Pressure 90/55 L Pulse Oximetry 95 05/10/21 12:15 05/10/21 13:00 05/10/21 14:00 Temperature Pulse Rate 82 80 85 Respiratory Rate 22 H 22 H 20 Blood Pressure 91/50 L 111/80 94/63 L Pulse Oximetry 96 94 95 05/10/21 15:00 05/10/21 15:04 05/10/21 15:12 Temperature Pulse Rate 85 88 86 Respiratory Rate 20 22 H 21 H Blood Pressure 111/64 Pulse Oximetry 95 05/10/21 15:30 05/10/21 15:45 05/10/21 15:51 Temperature Pulse Rate 106 H 91 92 Respiratory Rate 23 H Blood Pressure 91/57 L Pulse Oximetry 92 05/10/21 16:00 05/10/21 16:19 05/10/21 17:13 Temperature Pulse Rate 91 122 H 129 H Respiratory Rate 24 H 24 H Blood Pressure 75/59 L Pulse Oximetry 94 05/10/21 17:45 05/10/21 18:00 05/10/21 18:05 Temperature Pulse Rate 119 H 111 H 111 H Respiratory Rate 24 H 22 H Blood Pressure 92/68 L 115/78 115/78 Pulse Oximetry 95 94 05/10/21 19:00 05/10/21 20:00 05/10/21 20:45 Temperature 36.6 C Pulse Rate 126 H 121 H 118 H Respiratory Rate 24 H 24 H 22 H Blood Pressure 120/59 L 115/72 Pulse Oximetry 92 99 92 05/10/21 21:36 05/10/21 21:57 05/10/21 22:00 Temperature Pulse Rate 128 H 118 H 121 H Respiratory Rate 20 Blood Pressure 126/103 H Pulse Oximetry 05/11/21 00:00 05/11/21 02:00 05/11/21 02:38 Temperature Pulse Rate 118 H 115 H 117 H Respiratory Rate 22 H 22 H Blood
[2021-05-11] MEDS: FLUTICASONE/SALMETEROL 115-21 MCG INHALER 1 PUFF 2 PUFF INHALATION ×2 (09:59→19:51)
[2021-05-11] MEDS: SOTALOL HCL 80 MG TABLET PO ×2 (10:26→21:46)
--- NOTE | 2021-05-11 12:30 | ECG_ITS ---
Measurements Intervals [place] Rate: 106 P: GA: 0 QRS: 77 QRSD: 106 T: 11 QT: 372 QTc: 496 Interpretive Statements ATRIAL FIBRILLATION WITH RAPID VENTRICULAR RESPONSE BORDERLINE T WAVE ABNORMALITY- INFERIOR LEADS BASELINE ARTIFACT- II, III, V5-V6 ABNORMAL ECG Electronically Signed On 05-11-2021 12:42:47 CIAIO COUNTER MOLDER by Andrey Newman D.O.
--- NOTE | 2021-05-11 12:55 | PCPTNOTE ---
Per RN, Pt is on bedrest due to recent medication he just started today. RN requested therapy check back tomorrow.
--- NOTE | 2021-05-11 13:11 | PM.IMPN ---
Progress Note: A&P Assessment and Plan (1) Syncopal episodes: Qualifiers: Syncope type: unspecified Qualified Code(s): R55 - Syncope and collapse Code(s): R55 - Syncope and collapse Status: Acute Assessment and Plan: Multiple syncopal episodes this week. EKG with atrial fibrillation with RVR. COVID test negative. He does have TRACY to suggest dehydration so consider orthostatic HoTN (but not seen on set done in ED although not sure if he received IV fluids prior). Also with AFib/RVR which also may be contributing to his syncopal episodes. Continue to control heart rate. Renal function better. Continue PT/OT (2) TRACY (acute kidney injury): Code(s): N17.9 - Acute kidney failure, unspecified Status: Acute Assessment and Plan: Baseline Cr 0.9-1.2. Cr 2.1 on admission. He was on Lasix and Losartan on admission. Renal US normal. Cr has improved to 1.3. Continue to monitor. Resume lasix when able. (3) Atrial fibrillation with rapid ventricular response: Code(s): I48.91 - Unspecified atrial fibrillation Status: Resolved Assessment and Plan: EKG on admission showing possible AFib. Currently on Xarelto. He was started on Amio drip to control rate but may have had a reaction to this in the past. Echo showing EF 65-70% with Grade II diastolic dysfunction. Cardiology has seen the patient and options discussed. Plan to change to Sotalol and stop metoprolol and Amio. Patient will remain in IMU for Sotaolol load. Monitor on tele. Appreciate Cardiology input (4) Rhabdomyolysis: Code(s): M62.82 - Rhabdomyolysis Status: Acute Assessment and Plan: TCK 1172. Suspect mild rhabdomyolysis. Related to syncope/falls? Medications? Renal function better. LFTs normal. Will stop Lipitor and start low amounts of IV fluids. Follow TCK (5) COPD (chronic obstructive pulmonary disease) with emphysema: Qualifiers: Emphysema type: unspecified Qualified Code(s): J43.9 - Emphysema, unspecified Code(s): J43.9 - Emphysema, unspecified Status: Acute Assessment and Plan: Patient with COPD and hx of tobacco abuse with exacerbation. Patient is wheezing but not on O2. He states wheezing is chronic for him. Solu-Medrol and nebs started. Wheezing better. Follow (6) Anemia: Code(s): D64.9 - Anemia, unspecified Status: Acute Assessment and Plan: Hgb mostly 10-11 as baseline. Hgb 9.0 on admission and has dropped to 8 range. Iron studies consistent with iron deficiency. B12 level also low end of normal. B12 IM once. Continue iron and B12. Continue PPI. Transfuse as necessary (7) Nail avulsion of toe: Qualifiers: Encounter type: initial encounter Qualified Code(s): S91.209A - Unspecified open wound of unspecified toe(s) with damage to nail, initial encounter Code(s): S91.209A - Unspecified open wound of unspecified toe(s) with damage to nail, initial encounter Status: Acute Assessment and Plan: Xray on admission showing there is a linear intra-articular fracture of the lateral aspect of the base of the distal phalanx of the great toe, with transverse fracture extending through the metaphyseal area. There is minimal displacement or angulation. Continue routine wound care for the nail. (8) Essential hypertension: Code(s): I10 - Essential (primary) hypertension Status: Acute Assessment and Plan: Patient's blood pressure was reviewed on 05/11 Blood pressure soft at times. Will continue current medications. (9) Hyperlipidemia: Qualifiers: Hyperlipidemia type: unspecified Qualified Code(s): E78.5 - Hyperlipidemia, unspecified Code(s): E78.5 - Hyperlipidemia, unspecified Status: Acute Assessment and Plan: LFTs normal today. Lipitor held for Rhabdomyolysis. (10) CAD (coronary artery disease): Qualifiers: Associated angina:
[2021-05-11 13:25] LABS: Anion Gap 4 mmol/L (8-16); Blood Urea Nitrogen 12 mg/dL (9-20); Calcium 8.2 mg/dL (8.4-10.2); Carbon Dioxide 26 mmol/L (22-30); Chloride 100 mmol/L (98-107); Estimated CRCL calculation 77 ml/min; Estimated Glomerular Filt Rate 60; Glucose 205 mg/dL (65-110); Magnesium 2.2 mg/dL (1.6-2.3); Potassium 4.4 mmol/L (3.4-5.0); Sodium 130 mmol/L (137-145)
[2021-05-11] MEDS: FUROSEMIDE INJ 40 MG/4 ML VIAL 20 MG IV PUSH (16:29)
[2021-05-11] MEDS: RIVAROXABAN 20 MG TABLET PO (16:29)
[2021-05-11 18:58] LABS: IFOB Positive Control Positive; Immunochemical Fecal Occult Bl Positive (N)
--- NOTE | 2021-05-11 23:42 | ECG_ITS ---
Measurements Intervals [place] Rate: 102 P: [place]: 0 QRS: 65 QRSD: 98 T: 29 QT: 382 QTc: 498 Interpretive Statements ATRIAL FIBRILLATION WITH RAPID VENTRICULAR RESPONSE BASELINE ARTIFACT- I, II, III, AVR, AVL, AVF, V1, V4-V6 ABNORMAL ECG Electronically Signed On 05-12-2021 7:54:49 [employer]PORATION SECRETARY by Andrey Newman D.O.
[2021-05-12] VITALS (40 sets, daily range): BP systolic 80–173; BP diastolic 43–72; PULSE 56–113; RESP 16–30; TEMP 35.7–36.6; O2SAT 89–100
[2021-05-12] MEDS: FUROSEMIDE INJ 40 MG/4 ML VIAL 20 MG IV PUSH (00:22)
[2021-05-12] MEDS: IPRATROPIUM BR 0.02% INH SOLN 0.5 MG/2.5 ML VIAL INHALATION ×3 (02:25→13:50)
[2021-05-12 03:04] LABS: Alveolar/Arterial O2 Gradient 96.9 mmHg; Base Excess ABG -0.2 mEq/l (+/-2.0); Carboxyhemoglobin 0.3 % THb (0-2.0); Fractional Inspired Oxygen 30 %; HCO3 ABG 26.5 mEq/l (22.0-26.0); Methemoglobin ABG 0.2 %THb (0-1.5); Oxygen Content ABG 11.8 %vol (16.0-22.0); PCO2 ABG 53.9 mmHg (35.0-45.0); PO2 ABG 53.7 mmHg (80.0-100.0); PO2 FiO2 Ratio Arterial Blood 1.79 %; Reduced Hemoglobin 16.3 %THb (0-5.0); Total Hemoglobin 10.1 g/dL (12.0-18.0)
[2021-05-12 03:06] LABS: Oxygen Saturation ABG 84.4 % (95.0-100.0)
[2021-05-12 03:08] LABS: Oxyhemoglobin 83.2 % THb (90.0-100.0); Site Drawn RIGHT BRACHIAL
[2021-05-12 03:09] LABS: Device NASAL CANNULA; Liters per Minute 2.5 LPM
[2021-05-12 05:02] LABS: Hematocrit 25.8 % (42.0-52.0); Hemoglobin 8.4 g/dL (14.0-18.0); Mean Corpuscular HGB Conc 32.6 g/dl (32-36); Mean Corpuscular Hemoglobin 28.3 pg (26-34); Mean Corpuscular Volume 86.9 fl (80-100); Mean Platelet Volume 10.3 fl (7.4-10.4); Platelet Count Result 383 k/mm3 (150-375); Red Blood Count 2.97 M/mm3 (4.6-6.20); Red Cell Distribution Width 15.5 % (11.5-14.5); White Blood Count 16.4 K/mm3 (4.5-10.0)
[2021-05-12 05:17] LABS: Anion Gap 2 mmol/L (8-16); Blood Urea Nitrogen 20 mg/dL (9-20); Calcium 8.1 mg/dL (8.4-10.2); Carbon Dioxide 29 mmol/L (22-30); Chloride 100 mmol/L (98-107); Creatine Kinase 862 U/L (55-170); Estimated CRCL calculation 67 ml/min; Estimated Glomerular Filt Rate 50; Glucose 194 mg/dL (65-110); Magnesium 2.1 mg/dL (1.6-2.3); Potassium 4.2 mmol/L (3.4-5.0); Sodium 131 mmol/L (137-145)
[2021-05-12] MEDS: methylPREDNISolone SOD SUCC 125 MG VIAL 60 MG IV PUSH ×3 (07:59→18:15)
[2021-05-12] MEDS: rOPINIRole HCL 1 MG TABLET PO ×2 (08:00→13:22)
[2021-05-12] MEDS: FLUTICASONE/SALMETEROL 115-21 MCG INHALER 1 PUFF 2 PUFF INHALATION (08:34)
[2021-05-12] MEDS: SOTALOL HCL 80 MG TABLET PO (09:10)
[2021-05-12] MEDS: FERROUS SULFATE 324 MG TABLET PO ×2 (09:10→18:15)
[2021-05-12] MEDS: PANTOPRAZOLE SODIUM IV 40 MG VIAL IV PUSH (09:10)
[2021-05-12] MEDS: ASPIRIN 81 MG ENTERIC TABLET PO (09:11)
[2021-05-12] MEDS: CYANOCOBALAMIN 1,000 MCG TABLET 1000 MCG PO (09:11)
--- NOTE | 2021-05-12 09:32 | PM.IMPN ---
Progress Note: A&P Assessment and Plan (1) Syncopal episodes: Qualifiers: Syncope type: unspecified Qualified Code(s): R55 - Syncope and collapse Code(s): R55 - Syncope and collapse Status: Acute Assessment and Plan: Multiple syncopal episodes this week. EKG with atrial fibrillation with RVR. COVID test negative. He does have TRACY to suggest dehydration so consider orthostatic HoTN (but not seen on set done in ED although not sure if he received IV fluids prior). Also with AFib/RVR which also may be contributing to his syncopal episodes. Continue to control heart rate. Renal function better. Continue PT/OT (2) TRACY (acute kidney injury): Code(s): N17.9 - Acute kidney failure, unspecified Status: Acute Assessment and Plan: Baseline Cr 0.9-1.2. Cr 2.1 on admission. He was on Lasix and Losartan on admission. Renal US normal. Cr has improved to 1.3. Continue to monitor. Resume lasix when able. (3) Atrial fibrillation with rapid ventricular response: Code(s): I48.91 - Unspecified atrial fibrillation Status: Resolved Assessment and Plan: EKG on admission showing possible AFib. Currently on Xarelto. He was started on Amio drip to control rate but may have had a reaction to this in the past. Echo showing EF 65-70% with Grade II diastolic dysfunction. Cardiology has seen the patient and options discussed. Plan to change to Sotalol and stop metoprolol and Amio. Patient will remain in IMU for Sotaolol load. Monitor on tele. Appreciate Cardiology input Echo with EF 65-70% mildly increased left ventricular wall thickness grade 2 diastolic dysfunction no aortic valve stenosis done on 05/10/2021 (4) Rhabdomyolysis: Code(s): M62.82 - Rhabdomyolysis Status: Acute Assessment and Plan: TCK 1172. Suspect mild rhabdomyolysis. Related to syncope/falls? Medications? Renal function better. LFTs normal. Will stop Lipitor and start low amounts of IV fluids. Follow TCK CK level has improved down to 800 Continue to monitor CK level (5) COPD (chronic obstructive pulmonary disease) with emphysema: Qualifiers: Emphysema type: unspecified Qualified Code(s): J43.9 - Emphysema, unspecified Code(s): J43.9 - Emphysema, unspecified Status: Acute Assessment and Plan: Patient with COPD and hx of tobacco abuse with exacerbation. Patient is wheezing but not on O2. He states wheezing is chronic for him. Solu-Medrol and nebs started. Wheezing better. Follow Acute hypercapnic respiratory failure overnight with repeat chest x-ray ABG reviewed on BiPAP currently Repeat ABG and monitor (6) Anemia: Code(s): D64.9 - Anemia, unspecified Status: Acute Assessment and Plan: Hgb mostly 10-11 as baseline. Hgb 9.0 on admission and has dropped to 8 range. Iron studies consistent with anemia chronic disease ferritin level is 95 with low TIBC. B12 level also low end of normal. B12 IM once. Continue iron and B12. Continue PPI. Transfuse as necessary FOBT test came back positive. On PPI b.i.d. Will consult GI (7) Nail avulsion of toe: Qualifiers: Encounter type: initial encounter Qualified Code(s): S91.209A - Unspecified open wound of unspecified toe(s) with damage to nail, initial encounter Code(s): S91.209A - Unspecified open wound of unspecified toe(s) with damage to nail, initial encounter Status: Acute Assessment and Plan: Xray on admission showing there is a linear intra-articular fracture of the lateral aspect of the base of the distal phalanx of the great toe, with transverse fracture extending through the metaphyseal area. There is minimal displacement or angulation. Continue routine wound care for the nail. (8) Essential hypertension: Code(s): I10 - Essential (primary) hypertension Status: Acute Assessment and Plan: Patient's blood pressure was reviewed on 05/11 Blood pressure
--- NOTE | 2021-05-12 11:10 | ECG_ITS ---
Measurements Intervals [place] Rate: 70 P: 79 [place]: 232 QRS: 64 QRSD: 96 T: 33 QT: 455 QTc: 494 Interpretive Statements SINUS RHYTHM WITH FIRST DEGREE AV BLOCK ATRIAL AND VENTRICULAR PREMATURE COMPLEXES CANNOT RULE OUT SEPTAL INFARCT, AGE INDETERMINATE BASELINE WANDER- AVF, V1-V2 ABNORMAL ECG Electronically Signed On 05-12-2021 11:59:48 [employer]OW PLOW OPERATOR by Andrey Newman D.O.
[2021-05-12 11:12] LABS: Base Excess ABG 1.9 mEq/l (+/-2.0); Fractional Inspired Oxygen 30 %; HCO3 ABG 28.1 mEq/l (22.0-26.0); Oxygen Content ABG 12.1 %vol (16.0-22.0); Oxygen Saturation ABG 93.8 % (95.0-100.0); Oxyhemoglobin 91.9 % THb (90.0-100.0); PCO2 ABG 52.1 mmHg (35.0-45.0); PO2 ABG 73.2 mmHg (80.0-100.0); PO2 FiO2 Ratio Arterial Blood 2.44 %; Total Hemoglobin 9.3 g/dL (12.0-18.0); pH ABG 7.349 (7.350-7.450)
[2021-05-12 11:13] LABS: Device NON-INVASIVE VENT; Modified Allen's Test Pass; Site Drawn RIGHT RADIAL
[2021-05-12 11:14] LABS: Non-Invasive Expiratory Pressure 6 CMH2O; Non-Invasive Inspiratory Pressure 12 CMH2O; Non-Invasive Vent Rate 20 /MIN
--- NOTE | 2021-05-12 12:04 | PCPTNOTE ---
attempted PT eval but pt unable to glory sitting on EOB due to SOB. Pt currently on BIPAP.
--- NOTE | 2021-05-12 13:00 | WPDGICN ---
Assessment and Plan Additional Plan GI Consultation Dr. Bell 12 May 2021 This is a 71 year old male patient with a history of CAD s/p RI and CABG, Vfib arrest, Afib on Eliquis/ASA 81, HTN, HLD, COPD and asbestosis on CPAP/Bipap, and EtOH abuse who now presents for evaluation of syncope. Patient is seen at the request of the Hospitalist service to evaluate for heme positive anemia. The patient?s primary care provider is Dr. Romeo Garza. Patient is currently undergoing cardiac evaluation. Patient has easy bruising but denies abdominal pain, nausea or vomiting, trouble swallowing, bloating, loss of appetite or weight, early satiety, heartburn, diarrhea or constipation, rectal bleeding or melena. Patient denies fever, jaundice, scleral icterus, dark urine, light stool, itching, hot or cold intolerance, chest pain, shortness of breath at rest, hematuria, dysuria, new cough or visual changes, tingling of the skin, bone pain or tremors. No history of endocarditis, rheumatic fever, dental prophylaxis, heart valve surgery, bleeding disorder or joint replacement. NKDA. Medications: see list but includes Eliquis and aspirin 81. Social history: nonsmoker, nondrinker currently. Family history: negative for GI malignancy. Patient states he has never had colonoscopy. Physical exam: 2+ bilateral lower extremity edema. No jaundice, spider angioma, palmar erythema. + ecchymosis. Skull is normocephalic atraumatic. Sclera are non-icteric. Oropharynx is clear. Neck is supple without thyromegaly. Lungs are clear. Heart is irregular. Normal active bowel sounds. Protuberant. Non-tender, non-rigid without hepatosplenomegaly or masses. No guarding. Rectal is deferred. Neuro is conscious and alert ?3. Labs: 05-12-2021 Hct 26, MCV 87. Cr 1.4 05-11-2021 Hct 25. LFT's normal. Stool heme positive. 05-10-2021 Ferritin 96, Fe 40, TIBC 256, %sat 16. 05-09-2021 Hct 28. Cr 2.1 04-16-2021 B12 282 Imaging: N/C Assessment and plan: Chronic blood loss anemia with heme positive stool on Eliquis and aspirin: - Anemia is likely multifactorial with CKD and possible GI blood loss - Labs are c/w AOCD NOT RICARDO - No evidence of active GI bleed - Follow H+H; transfuse prn - OK with PPI - OK with me for iron and Epo; got B12 - Patient is currently POOR candidate for endoscopy with significant cardiac and pulmonary co-morbidities - Hold on endoscopy for now Thank you very much for allowing me to share in the care of your patient. Further recommendations per [facility]. Murali Bell M.D. c) [phone] GI Consult Note Consult date/time: 05/12/21 13:00 HPI: Zack Dai is a 71 year old male [facility] Past Medical History Medical History Alcohol abuse Asbestosis Atrial fibrillation with rapid ventricular response BMI over 35 Chronic hypercapnic respiratory failure COPD (chronic obstructive pulmonary disease) COPD (chronic obstructive pulmonary disease) with emphysema Coronary artery disease Followed by Dr. Hill Encounter for immunization (04/03/15) Essential hypertension History of ventricular fibrillation VFib arrest during cardiac catheterization December 2018 and subsequent cardiogenic shock cardiac in her aortic balloon pump emergent echo demonstrating EF of 35% Hypercholesterolemia Irritation of eye Irritation of left eye Lumbar spondylosis with myelopathy Paroxysmal atrial fibrillation Restless leg STEMI (ST elevation myocardial infarction) Tobacco use Surgical History Surgical History History of cardiac catheterization December 2018: High-grade stenosis of left main coronary, moderate to severe diffuse disease of proximal to mid LAD, high-grade eccentric ulcerated plaque in the mid segment of the dominant RCA. During catheterization the patient went into VFib arrest much shock x1 Hx of CABG CABG with [place] to LAD, left radial artery to OM 2, reverse saphenous vein graft 2 p.o
--- NOTE | 2021-05-12 14:13 | PM.PNCARD ---
Progress Note: A&P Assessment and Plan (1) Atrial fibrillation with rapid ventricular response: Code(s): I48.91 - Unspecified atrial fibrillation Status: Resolved Assessment and Plan: converted to sinus rhythm on sotalol initiated by Dr. Ocampo. He has received 3 doses thus far. QT interval mildly prolonged more consistent manual measured 480 milliseconds. Listed QT corrected 494 milliseconds QT 455msec I feel computer interpretation confounded by PVC and PAC. Repeat 12 lead EKG after next dose. If any further prolongation will need to discontinue sotalol in favor of alternative. Avoid QT prolonging drugs. (2) Encounter for monitoring sotalol therapy: Code(s): Z51.81 - Encounter for therapeutic drug level monitoring; Z79.899 - Other senior living (current) drug therapy Status: Acute Assessment and Plan: As above. Continue routine scheduled 12 lead scrubber system attendant QT interval closely. He must be monitored in this regard for 5 total doses he has received 3 thus far. (3) Syncope: Qualifiers: Syncope type: unspecified Qualified Code(s): R55 - Syncope and collapse Code(s): R55 - Syncope and collapse Status: Acute Assessment and Plan: More likely acute renal failure orthostasis less likely AFib. (4) Anemia: Qualifiers: Anemia type: other cause Other causes of anemia: chronic disease, other Qualified Code(s): D63.8 - Anemia in other chronic diseases classified elsewhere Code(s): D64.9 - Anemia, unspecified Status: Acute Assessment and Plan: GI consultation noted. Anemia chronic disease no evidence of active bleed. Systemic anticoagulation. Rivaroxaban 20 mg, monitor renal function if any further decline will need to reduce to 15 mg at bedtime.. (5) Chronic obstructive pulmonary disease with (acute) exacerbation: Code(s): J44.1 - Chronic obstructive pulmonary disease with (acute) exacerbation Status: Inactive Assessment and Plan: Per primary service. Continue noninvasive positive pressure ventilation. (6) Rhabdomyolysis: Code(s): M62.82 - Rhabdomyolysis Status: Acute Assessment and Plan: Continue to monitor, CKD trending downward. (7) TRACY (acute kidney injury): Code(s): N17.9 - Acute kidney failure, unspecified Status: Acute Assessment and Plan: Improving. Continue to follow. (8) CAD (coronary artery disease): Qualifiers: Coronary Disease-Associated Artery/Lesion type: unspecified vessel or lesion type [place] vs. transplanted heart: unspecified whether [place] or transplanted heart Associated angina: unspecified whether angina present Qualified Code(s): I25.10 - Atherosclerotic heart disease of [place] coronary artery without angina pectoris Code(s): I25.10 - Atherosclerotic heart disease of [place] coronary artery without angina pectoris Status: Acute Assessment and Plan: stable, no acute issues at this time. Continue current medical therapy. Subjective Date/time seen: Date of service: 05/12/21 14:13 Interval history: Follow-up visit in this 71-year-old man with: Coronary artery disease coronary bypass grafting within the last couple of years presenting to the hospital with syncopal episodes of unclear etiology. Patient has a history of paroxysmal AFib/atrial flutter. New issues overnight. Feels better but on BiPAP. No chest pain or palpitations. Converted to normal sinus rhythm on telemetry late this morning. Has received 3 doses of sotalol 80 mg. Has no other complaints. Review of Systems Constitutional: Constitutional: Denies chills, Reports fatigue, Denies fever(s), Reports frequent falls and Denies poor appetite Eyes: Eyes: Denies eye discharge, Denies loss of vision, Denies eye pain and Denies photophobia ENT: Denies dizziness, Denies epistaxis, Denies nasal congestion and Denies sore throat Cardiovascula
[2021-05-12] MEDS: RIVAROXABAN 20 MG TABLET PO (18:15)
--- NOTE | 2021-05-12 19:58 | ECG_ITS ---
Measurements Intervals [place] Rate: 72 P: [place]: 0 QRS: 56 QRSD: 113 T: 5 QT: 431 QTc: 474 Interpretive Statements SINUS RHYTHM BORDERLINE AV CONDUCTION DELAY LOW QRS VOLTAGE IN LIMB LEADS BORDERLINE ST-T WAVE ABNORMALITY- INFERIOR LEADS BASELINE ARTIFACT- I, III, AVL, AVF, V5-V6 BORDERLINE ECG Electronically Signed On 05-13-2021 7:20:26 [employer]ER [employer]ODUCTION by Andrey Newman D.O.
--- NOTE | 2021-05-12 20:11 | PDCODEBLUE ---
Code Blue Note Code Blue Note Time Arrived at Code Blue: 1919 Airway Management: Pt being bagged on arrival Chest Compressions: In process on arrival to bedside Result of Code Blue: Pt transferred to ICU Code [place] Summary: A esther kumari was called per imu. It was reported that the patient had yelled out and his bipap machine had gotten pulled apart. The patient's heart rate had decreased to around 30. When the staff checked his heart rate, he did not have a pulse. IMU staff and respiratory team all came to the code. Ed doctor had arrived briefly to assist however, the situation was already under control. CpR had already started prior to me enering room. Three rounds of epinephrine were given in the code with one round of bicarb. The patient was intubed once a pulse had regained. respiratory effort was poor and the patent was gasping for air. She procedure note. I called the foundation drill operator aND cardiology. Dr. Bhat placed orders for ventialtor settings.
--- NOTE | 2021-05-12 20:37 | WPDPROCEDUR ---
Procedures Intubation Intubation Date: 05/12/21 Intubation Time: 18:40 Sedative: etomidate Mg given: 20 Paralytic: rocuronium Mg given: 40 Laryngoscope: fiber optic video scope ET tube size: 7.5 Tube placement confirmation: visualized tube passing through cords and equal breath sounds bilaterally Patient tolerated procedure: well Additional comments: ETT WAS NOTED TO BE 6-7 CM ABOVE THE TIM. THE PATIENT HAD BEEN 23 AT THE LIP.The et was pushed down to 26 at the lip.
[2021-05-12] MEDS: FENTANYL 2,500MCG/NS250ML(*CRX 2,500 MCG/250 ML BAG IV CONT (21:10)
[2021-05-12] MEDS: MIDAZOLAM 100MG/NS 100ML(*CRX) 100 MG/100 ML BAG IV CONT (21:10)
[2021-05-12 21:19] LABS: Alveolar/Arterial O2 Gradient 575.8 mmHg; Base Excess ABG -4.6 mEq/l (+/-2.0); Carboxyhemoglobin 0.3 % THb (0-2.0); Fractional Inspired Oxygen 100 %; HCO3 ABG 24.2 mEq/l (22.0-26.0); Methemoglobin ABG 0.2 %THb (0-1.5); Oxygen Content ABG 16.9 %vol (16.0-22.0); Oxygen Saturation ABG 91.9 % (95.0-100.0); Oxyhemoglobin 88.6 % THb (90.0-100.0); PO2 ABG 75.6 mmHg (80.0-100.0); PO2 FiO2 Ratio Arterial Blood 0.76 %; Reduced Hemoglobin 10.9 %THb (0-5.0); Total Hemoglobin 13.5 g/dL (12.0-18.0)
[2021-05-12 21:20] LABS: pH ABG 7.212 (7.350-7.450)
[2021-05-12 21:21] LABS: Arterial Blood Gas PEEP 5 cmH2O; Arterial Blood Gas Tidal Volume 450 ml; Arterial Blood Gas Vent Mode CMV; Arterial Blood Gas Ventilator rate 20 /MIN; Device VENTILATOR; PCO2 ABG 61.6 mmHg (35.0-45.0); Site Drawn RIGHT FEMORAL
--- NOTE | 2021-05-12 21:58 | P.PCNBED_ITS ---
Procedures Central Line Placement Right Femoral: Central Line Date: 05/12/21 Central Line Time: 21:31 Discussed w/ the patient/family/POA,the placement of a central venous catheter, including its clinical necessity/indication & associated potential risks, benifits and alternatives.: Yes The patient/family/POA understand(s) and acknowledge(s) the need to proceed with central venous catheter insertion as an important element of the patient's clinical management.: Yes Time Out Performed: Yes Patient Position: supine Patient placed on monitor/pulse ox: Yes Provider Prep: Max. sterile barrier precautions Central line prep: 2% Chlorhexidine scrub Local anesthesia used: lidocaine 1% Amount of anesthesia used (ml): 3 Sterile US Technique with sterile gel/sterile probe covers: Yes Central line lumen inserted: triple [place]: 7 Length (cm): 16 Post Procedure: sutured in place, good blood return, transparent dressing, antimicrobial product and securement product Patient tolerated procedure: well Complications: none
[2021-05-12 22:06] LABS: Basophils Percent Auto 0.1 % (0.2-1.2); Hemoglobin 8.8 g/dL (14.0-18.0); Immature Granulocyte Absolute 0.21 K/mm3 (0.00-0.031); Immature Granulocyte Percent A 1.2 % (0-0.5); Lymphocytes Absolute Auto 0.37 K/mm3 (0.9-3.2); Lymphocytes Percent Auto 2.1 % (18.3-44.2); Mean Corpuscular HGB Conc 31.4 g/dl (32-36); Mean Corpuscular Hemoglobin 28.9 pg (26-34); Mean Corpuscular Volume 91.8 fl (80-100); Monocytes Absolute Auto 0.7 K/mm3 (0.1-0.6); Monocytes Percent Auto 3.8 % (2.6-8.5); Neutrophils Absolute Auto 16.4 K/mm3 (1.3-6.7); Neutrophils Percent Auto 92.8 % (45.5-73.1); Platelet Count Result 405 k/mm3 (150-375); Red Blood Count 3.05 M/mm3 (4.6-6.20); Red Cell Distribution Width 15.9 % (11.5-14.5); White Blood Count 17.7 K/mm3 (4.5-10.0)
[2021-05-12] MEDS: RAPID SEQUENCE INTUBATION KIT 1 EACH (22:06)
[2021-05-12] MEDS: MIDAZOLAM HCL (*CRX) 2 MG/2 ML VIAL IV PUSH ×2 (22:06→22:21)
[2021-05-12] MEDS: levETIRAcetam 1000MG/NACL100ML 1,000 MG/100 ML BAG 400 MG IVPB (22:06)
[2021-05-12] MEDS: CENTRAL LINE FLUSH 10 ML IV PUSH (22:07)
[2021-05-12] MEDS: NOREPINEPHRINE 8 MG/D5W 250 ML 8 MG/250 ML BAG 9.38 MG IV CONT (22:07)
[2021-05-12] MEDS: MINERAL OIL/WHITE PETROLATUM OINTMENT 1 APPLIC EACH EYE (22:07)
[2021-05-12 22:15] LABS: Alanine Aminotransferase 44 U/L (4-50); Albumin Level 3.6 g/dL (3.5-5.1); Alkaline Phosphatase 71 U/L (38-126); Anion Gap 4 mmol/L (8-16); Aspartate Amino Transferase 67 U/L (17-59); Bilirubin,Total 1.7 mg/dL (0.2-1.3); Blood Urea Nitrogen 30 mg/dL (9-20); Calcium 7.8 mg/dL (8.4-10.2); Carbon Dioxide 29 mmol/L (22-30); Chloride 101 mmol/L (98-107); Estimated CRCL calculation 58 ml/min; Estimated Glomerular Filt Rate 43; Glucose 229 mg/dL (65-110); Magnesium 2.4 mg/dL (1.6-2.3); Potassium 4.6 mmol/L (3.4-5.0); Sodium 134 mmol/L (137-145)
[2021-05-12 22:16] LABS: INR 2.8; Lactic Acid Reflex 1.6 mmol/L (0.7-2.1); Prothrombin Time 28.9 Seconds (11.1-14.7)
[2021-05-12 22:17] LABS: Partial Thromboplastin Time 35.9 SECONDS (22.3-36.8)
[2021-05-12 22:24] LABS: Hypochromasia 1+ (NORMAL)
[2021-05-12 22:26] LABS: Anisocytosis 1+ (NORMAL); Burr Cells 1+ (NORMAL)
[2021-05-12 22:30] LABS: Troponin I 0.073 ng/mL (0.000-0.034)
[2021-05-13] VITALS (39 sets, daily range): BP systolic 96–134; BP diastolic 51–78; PULSE 52–96; RESP 19–24; TEMP 36.7–36.8; O2SAT 94–100
[2021-05-13 00:05] LABS: Glucose Point of Care 245 mg/dl (65-105)
[2021-05-13] MEDS: methylPREDNISolone SOD SUCC 125 MG VIAL 60 MG IV PUSH ×4 (00:06→18:00)
[2021-05-13] MEDS: INSULIN ASPART (*BKC) 100 UNITS/ML SUB-Q (00:06)
[2021-05-13 01:40] LABS: Troponin I 0.095 ng/mL (0.000-0.034)
[2021-05-13] MEDS: IPRATROPIUM BR 0.02% INH SOLN 0.5 MG/2.5 ML VIAL INHALATION ×4 (02:27→19:44)
[2021-05-13 04:50] LABS: Hematocrit 26.5 % (42.0-52.0); Hemoglobin 8.3 g/dL (14.0-18.0); Mean Corpuscular HGB Conc 31.3 g/dl (32-36); Mean Corpuscular Hemoglobin 28.1 pg (26-34); Mean Corpuscular Volume 89.8 fl (80-100); Mean Platelet Volume 10.1 fl (7.4-10.4); Platelet Count Result 431 k/mm3 (150-375); Red Blood Count 2.95 M/mm3 (4.6-6.20); Red Cell Distribution Width 15.9 % (11.5-14.5); White Blood Count 15.2 K/mm3 (4.5-10.0)
[2021-05-13 05:03] LABS: Alveolar/Arterial O2 Gradient 449.9 mmHg; Base Excess ABG 3.5 mEq/l (+/-2.0); Carboxyhemoglobin 0.3 % THb (0-2.0); Fractional Inspired Oxygen 80 %; HCO3 ABG 29.4 mEq/l (22.0-26.0); Methemoglobin ABG 0.1 %THb (0-1.5); Oxygen Content ABG 11.9 %vol (16.0-22.0); Oxygen Saturation ABG 92.3 % (95.0-100.0); Oxyhemoglobin 91.4 % THb (90.0-100.0); PCO2 ABG 51.7 mmHg (35.0-45.0); PO2 ABG 66.2 mmHg (80.0-100.0); PO2 FiO2 Ratio Arterial Blood 0.83 %; Reduced Hemoglobin 8.2 %THb (0-5.0); Total Hemoglobin 9.2 g/dL (12.0-18.0); pH ABG 7.373 (7.350-7.450)
[2021-05-13 05:04] LABS: Arterial Blood Gas PEEP 5 cmH2O; Arterial Blood Gas Vent Mode CMV; Arterial Blood Gas Ventilator rate 24 /MIN; Device VENTILATOR; Site Drawn RIGHT BRACHIAL
[2021-05-13 05:05] LABS: Arterial Blood Gas Tidal Volume 450 ml
[2021-05-13 05:05] LABS: Creatine Kinase 300 U/L (55-170)
[2021-05-13 05:15] LABS: Anion Gap 0 mmol/L (8-16); Blood Urea Nitrogen 36 mg/dL (9-20); Carbon Dioxide 33 mmol/L (22-30); Chloride 101 mmol/L (98-107); Estimated CRCL calculation 62 ml/min; Estimated Glomerular Filt Rate 46; Glucose 178 mg/dL (65-110); Magnesium 2.6 mg/dL (1.6-2.3); Potassium 4.5 mmol/L (3.4-5.0); Sodium 134 mmol/L (137-145)
[2021-05-13 05:19] LABS: Troponin I 0.097 ng/mL (0.000-0.034)
[2021-05-13] MEDS: CENTRAL LINE FLUSH 10 ML IV PUSH ×3 (07:31→20:34)
[2021-05-13] MEDS: FERROUS SULFATE 324 MG TABLET PO ×2 (08:15→18:00)
[2021-05-13] MEDS: CYANOCOBALAMIN 1,000 MCG TABLET 1000 MCG PO (08:15)
[2021-05-13] MEDS: FAMOTIDINE 20 MG/2 ML VIAL IV PUSH (08:15)
[2021-05-13] MEDS: ASPIRIN 81 MG ENTERIC TABLET PO (08:15)
[2021-05-13] MEDS: MINERAL OIL/WHITE PETROLATUM OINTMENT 1 APPLIC EACH EYE ×2 (08:16→20:34)
[2021-05-13] MEDS: levETIRAcetam ORAL SOL 500 MG/5 ML UDC FEED TUBE ×2 (08:24→20:34)
--- NOTE | 2021-05-13 09:44 | WPDCNINT ---
Assessment and Plan Assessment and plan (1) Acute respiratory failure: Code(s): J96.00 - Acute respiratory failure, unspecified whether with hypoxia or hypercapnia Status: Acute Assessment and Plan: Acute respiratory failure likely related to the arrest, severe COPD, possible pneumonia, patient was on BiPAP, which got pulled apart and patient was bradycardic and pulseless -currently on CMV mode of ventilation, peep of 5, 80% FiO2. Will wean FiO2 maintain O2 sats greater than 92%. -chest x-ray reviewed, will increase PEEP to 8 -continue bronchodilators, Pulmicort -sedated with fentanyl,Versed infusion, maintain RASS of 0 to -2 (2) Cardiac arrest: Code(s): I46.9 - Cardiac arrest, cause unspecified Status: Acute Assessment and Plan: Cardiac arrest most likely related to respiratory event as his BiPAP was pulled apart and patient went into bradycardic and pulseless arrest -cardiology following the patient -patient was recently also started on sotalol which is not discontinued -echocardiogram 05/10/2021 showed an EF of 65-70%. Grade 2 diastolic dysfunction, no aortic valve stenosis. -mild elevation in the troponins which are flat -patient with known coronary artery disease (3) TRACY (acute kidney injury): Code(s): N17.9 - Acute kidney failure, unspecified Status: Acute Assessment and Plan: Acute kidney injury with creatinine of 2.6 on admission -creatinine has improved and is 1.5 this morning -continue to monitor urine output, renal function electrolytes (4) COPD (chronic obstructive pulmonary disease) with emphysema: Qualifiers: Emphysema type: unspecified Qualified Code(s): J43.9 - Emphysema, unspecified Code(s): J43.9 - Emphysema, unspecified Status: Acute Assessment and Plan: History of COPD with emphysema, continue bronchodilators and will add Pulmicort -currently intubated with adequate oxygenation (5) Rhabdomyolysis: Code(s): M62.82 - Rhabdomyolysis Status: Acute Assessment and Plan: CK levels trending down (6) Anemia: Qualifiers: Anemia type: other cause Other causes of anemia: chronic disease, other Qualified Code(s): D63.8 - Anemia in other chronic diseases classified elsewhere Code(s): D64.9 - Anemia, unspecified Status: Acute Assessment and Plan: Patient presented with anemia, he has been on Xarelto, with multiple falls. Multiple bruising -appreciate GI evaluation and recommendations. Patient does have heme-positive stools on Xarelto and aspirin -anemia is likely multifactorial with possible chronic kidney disease, anemia of chronic disease, GI loss. No evidence of active GI bleed Stated-continue PPI -GI also recommended iron and Epogen. No endoscopic intervention at this time as he is a poor candidate with significant cardiac and pulmonary comorbidities (7) DVT prophylaxis: Code(s): Z29.9 - Encounter for prophylactic measures, unspecified Status: Acute Assessment and Plan: Continue Xarelto Additional Plan Stress ulcer prophylaxis: Protonix q.12 hours Nutrition, will start tube feeds Code status: Full code Critical care time spent: 49 minutes This dictation may have been done utilizing a voice recognition system. Attempts have been made to correct errors. However, there may be uncorrected grammatical, spelling, and recognition errors present. Due to a high probability of clinically significant, life threatening deterioration, the patient required my highest level of preparedness to intervene emergently and I personally spent this critical care time directly and personally managing the patient. This critical care time included obtaining a history; examining the patient; pulse oximetry; ordering and review of studies; arranging urgent treatment with development of a management plan; evaluation of patient's response to treatment; frequent reassessment; and discuss
[2021-05-13] MEDS: PANTOPRAZOLE SODIUM IV 40 MG VIAL IV PUSH ×2 (10:15→20:34)
--- NOTE | 2021-05-13 12:44 | PM.PNCARD ---
Progress Note: A&P Assessment and Plan (1) Acute respiratory failure: Code(s): J96.00 - Acute respiratory failure, unspecified whether with hypoxia or hypercapnia Status: Acute Assessment and Plan: Currently intubated and on mechanical ventilatory support. Further management per Critical Care. Respiratory arrest secondary to apparent decoupling from BiPAP resulting in severe bradycardia resolved with oxygenation and intubation. Sotalol discontinued. Patient remains critically ill on Levophed. Wean Levophed as tolerated. (2) Cardiac arrest: Code(s): I46.9 - Cardiac arrest, cause unspecified Status: Acute Assessment and Plan: As above. Primary respiratory failure resulting in bradycardia and pulseless arrest. Currently maintaining sinus bradycardia agree with discontinuation of sotalol. (3) QT prolongation: Code(s): R94.31 - Abnormal electrocardiogram [ECG] [EKG] Status: Acute Assessment and Plan: Patient mild QT prolongation the EKG yesterday 480 milliseconds. Repeat EKG post arrest in sinus rhythm QT corrected interval 474msec. Given circumstances I would not resume sotalol. Difficult management should he have recurrence of atrial fibrillation. Questionable poor tolerance of amiodarone although precise details unclear at this time. I would be very cautious with use of any additional antiarrhythmic therapy in light of recent sotalol and mild QT prolongation. Problematic management if AFib recurs. Have no choice but to hold off for now. Avoid QT prolonging drugs. Follow EKG and QT interval. There is no evidence of complication from his QT prolongation thus far or evidence of torsades. Monitor electrolytes closely. (4) Atrial fibrillation with rapid ventricular response: Code(s): I48.91 - Unspecified atrial fibrillation Status: Resolved Assessment and Plan: Maintaining sinus bradycardia. As above. (5) Syncope: Qualifiers: Syncope type: unspecified Qualified Code(s): R55 - Syncope and collapse Code(s): R55 - Syncope and collapse Status: Acute Assessment and Plan: More likely acute renal failure orthostasis less likely AFib. (6) Anemia: Qualifiers: Anemia type: other cause Other causes of anemia: chronic disease, other Qualified Code(s): D63.8 - Anemia in other chronic diseases classified elsewhere Code(s): D64.9 - Anemia, unspecified Status: Acute Assessment and Plan: Stable, continue to monitor H&H. GI consultation noted. Anemia chronic disease no evidence of active bleed. Systemic anticoagulation. Rivaroxaban 20 mg, monitor renal function if any further decline will need to reduce to 15 mg at bedtime.. (7) Chronic obstructive pulmonary disease with (acute) exacerbation: Code(s): J44.1 - Chronic obstructive pulmonary disease with (acute) exacerbation Status: Inactive Assessment and Plan: Per primary service. Continue noninvasive positive pressure ventilation. (8) Rhabdomyolysis: Code(s): M62.82 - Rhabdomyolysis Status: Acute Assessment and Plan: Continue to monitor, CKD trending downward. (9) TRACY (acute kidney injury): Code(s): N17.9 - Acute kidney failure, unspecified Status: Acute Assessment and Plan: Stable thus far Continue to follow. (10) CAD (coronary artery disease): Qualifiers: Coronary Disease-Associated Artery/Lesion type: unspecified vessel or lesion type [place] vs. transplanted heart: unspecified whether [place] or transplanted heart Associated angina: unspecified whether angina present Qualified Code(s): I25.10 - Atherosclerotic heart disease of [place] coronary artery without angina pectoris Code(s): I25.10 - Atherosclerotic heart disease of [place] coronary artery without angina pectoris Status: Acute Assessment and Plan: stable, no acute issues at this time. Continue
[2021-05-13 12:47] LABS: Glucose Point of Care 173 mg/dl (65-105)
[2021-05-13 17:59] LABS: Glucose Point of Care 192 mg/dl (65-105)
[2021-05-13] MEDS: RIVAROXABAN 20 MG TABLET PO (18:00)
[2021-05-13] MEDS: NOREPINEPHRINE 8 MG/D5W 250 ML 8 MG/250 ML BAG 1.88 MG IV CONT (18:36)
[2021-05-13] MEDS: BUDESONIDE RESPULE NEB 0.5 MG/2 ML AMP INHALATION (19:43)
[2021-05-13] MEDS: FLUTICASONE/SALMETEROL 115-21 MCG INHALER 1 PUFF 2 PUFF INHALATION (19:44)
[2021-05-13 23:49] LABS: Glucose Point of Care 206 mg/dl (65-105)
[2021-05-14] VITALS (42 sets, daily range): BP systolic 97–148; BP diastolic 39–95; PULSE 53–70; RESP 16–26; TEMP 36.1–36.9; O2SAT 92–100; BMI 44.8
[2021-05-14] MEDS: methylPREDNISolone SOD SUCC 125 MG VIAL 60 MG IV PUSH ×3 (00:06→08:20)
[2021-05-14] MEDS: INSULIN ASPART (*BKC) 100 UNITS/ML SUB-Q ×2 (00:06→17:14)
[2021-05-14] MEDS: IPRATROPIUM BR 0.02% INH SOLN 0.5 MG/2.5 ML VIAL INHALATION ×4 (02:45→20:30)
[2021-05-14] MEDS: MIDAZOLAM 100MG/NS 100ML(*CRX) 100 MG/100 ML BAG IV CONT (03:54)
[2021-05-14] MEDS: FENTANYL 2,500MCG/NS250ML(*CRX 2,500 MCG/250 ML BAG 7.5 MCG IV CONT (03:55)
[2021-05-14 04:40] LABS: Hematocrit 24.3 % (42.0-52.0); Hemoglobin 7.5 g/dL (14.0-18.0); Mean Corpuscular HGB Conc 30.9 g/dl (32-36); Mean Corpuscular Hemoglobin 28.4 pg (26-34); Mean Platelet Volume 9.9 fl (7.4-10.4); Platelet Count Result 297 k/mm3 (150-375); Red Blood Count 2.64 M/mm3 (4.6-6.20); White Blood Count 9.4 K/mm3 (4.5-10.0)
[2021-05-14 04:54] LABS: Anion Gap 2 mmol/L (8-16); Blood Urea Nitrogen 46 mg/dL (9-20); Calcium 7.7 mg/dL (8.4-10.2); Carbon Dioxide 30 mmol/L (22-30); Chloride 104 mmol/L (98-107); Creatine Kinase 134 U/L (55-170); Estimated CRCL calculation 58 ml/min; Estimated Glomerular Filt Rate 43; Glucose 187 mg/dL (65-110); Magnesium 2.8 mg/dL (1.6-2.3); Potassium 4.2 mmol/L (3.4-5.0); Sodium 136 mmol/L (137-145)
[2021-05-14 05:03] LABS: Base Excess ABG 4.7 mEq/l (+/-2.0); pH ABG 7.369 (7.350-7.450)
[2021-05-14 05:04] LABS: Carboxyhemoglobin 0.3 % THb (0-2.0); Oxygen Content ABG 11.9 %vol (16.0-22.0)
[2021-05-14 05:05] LABS: Device VENTILATOR; Modified Allen's Test Pass; PO2 FiO2 Ratio Arterial Blood 1.55 %; Reduced Hemoglobin 6.7 %THb (0-5.0); Site Drawn LEFT RADIAL
[2021-05-14 05:06] LABS: Arterial Blood Gas PEEP 8 cmH2O; Arterial Blood Gas Tidal Volume 450 ml; Arterial Blood Gas Vent Mode CMV; Arterial Blood Gas Ventilator rate 24 /MIN
[2021-05-14] MEDS: CENTRAL LINE FLUSH 10 ML IV PUSH ×4 (06:30→21:00)
[2021-05-14] MEDS: PANTOPRAZOLE SODIUM IV 40 MG VIAL IV PUSH ×2 (08:19→21:00)
[2021-05-14] MEDS: MINERAL OIL/WHITE PETROLATUM OINTMENT 1 APPLIC EACH EYE ×2 (08:20→21:00)
[2021-05-14] MEDS: FERROUS SULFATE 324 MG TABLET PO ×2 (08:20→17:14)
[2021-05-14] MEDS: ASPIRIN 81 MG ENTERIC TABLET PO (08:20)
[2021-05-14] MEDS: levETIRAcetam ORAL SOL 500 MG/5 ML UDC FEED TUBE ×2 (08:20→20:59)
[2021-05-14] MEDS: BUDESONIDE RESPULE NEB 0.5 MG/2 ML AMP INHALATION ×2 (08:40→20:30)
[2021-05-14 11:15] LABS: Glucose Point of Care 200 mg/dl (65-105)
--- NOTE | 2021-05-14 11:28 | WPDINTPN ---
Progress Note: A&P Assessment and Plan (1) Acute respiratory failure: Code(s): J96.00 - Acute respiratory failure, unspecified whether with hypoxia or hypercapnia Status: Acute Assessment and Plan: Acute respiratory failure likely related to the arrest, severe COPD, possible pneumonia, congestive heart failure -currently on CMV mode of ventilation, peep of 8, 60% FiO2. Will wean FiO2 maintain O2 sats greater than 92%. -I placed patient on weaning trial this morning but he desaturated and failed his weaning trial FiO2 was increased to 60% -chest x-ray reviewed, will give Lasix -continue bronchodilators, Pulmicort -sedated with fentanyl,Versed infusion, maintain RASS of 0 to -2 (2) Cardiac arrest: Code(s): I46.9 - Cardiac arrest, cause unspecified Status: Acute Assessment and Plan: Cardiac arrest most likely related to respiratory event as his BiPAP was pulled apart and patient went into bradycardic and pulseless arrest -cardiology following the patient -patient was recently also started on sotalol which has been discontinued. Only sinus bradycardia -echocardiogram 05/10/2021 showed an EF of 65-70%. Grade 2 diastolic dysfunction, no aortic valve stenosis. -mild elevation in the troponins which are flat -patient with known coronary artery disease status post CABG and had cardiac catheterization done showed patent grafts and had stenting of his left subclavian artery stenosis. (3) TRACY (acute kidney injury): Code(s): N17.9 - Acute kidney failure, unspecified Status: Acute Assessment and Plan: Acute kidney injury with creatinine of 2.6 on admission -creatinine is stable around 1.6 this morning -will give Lasix for pulmonary edema -continue to monitor urine output, renal function electrolytes (4) COPD (chronic obstructive pulmonary disease) with emphysema: Qualifiers: Emphysema type: unspecified Qualified Code(s): J43.9 - Emphysema, unspecified Code(s): J43.9 - Emphysema, unspecified Status: Acute Assessment and Plan: History of COPD with emphysema, continue bronchodilators and Pulmicort Decrease Solu-Medrol (5) Rhabdomyolysis: Code(s): M62.82 - Rhabdomyolysis Status: Acute Assessment and Plan: CK levels have normalized (6) Anemia: Qualifiers: Anemia type: other cause Other causes of anemia: chronic disease, other Qualified Code(s): D63.8 - Anemia in other chronic diseases classified elsewhere Code(s): D64.9 - Anemia, unspecified Status: Acute Assessment and Plan: Patient presented with anemia, he has been on Xarelto, with multiple falls. Multiple bruising -appreciate GI evaluation and recommendations. Patient does have heme-positive stools on Xarelto and aspirin -anemia is likely multifactorial with possible chronic kidney disease, anemia of chronic disease, GI loss. No evidence of active GI bleed Stated-continue PPI -GI also recommended iron and Epogen. No endoscopic intervention at this time as he is a poor candidate with significant cardiac and pulmonary comorbidities (7) DVT prophylaxis: Code(s): Z29.9 - Encounter for prophylactic measures, unspecified Status: Acute Assessment and Plan: Continue Xarelto Additional Plan Stress ulcer prophylaxis: Protonix q.12 hours Nutrition - Continue tube feeds Code status: Full code Critical care time spent: 40 minutes This dictation may have been done utilizing a voice recognition system. Attempts have been made to correct errors. However, there may be uncorrected grammatical, spelling, and recognition errors present. Due to a high probability of clinically significant, life threatening deterioration, the patient required my highest level of preparedness to intervene emergently and I personally spent this critical care time directly and personally managing the patient. This critical care time included obtaining a history; examini
--- NOTE | 2021-05-14 11:28 | PM.PNCARD ---
Progress Note: A&P Additional Plan 71-year-old man with multivessel coronary disease previous CABG. He does have paroxysmal atrial fibrillation which in the past has been treated with amiodarone and possibly with Multaq according to the records. I started him on sotalol last week and he had a primary respiratory event over the weekend prompting intubation and transfer to the ICU. As expected his QT interval did prolonged on sotalol but I do not believe that was excessive. QTC were all less than 500. For now will follow the patient until extubation. At that point I believe alternative antiarrhythmic therapy will have to be started because he does have a history of recurrent AFib when he is off of medical therapy. John Ocampo MD [facility] Subjective Date/time seen: Date of service: 05/14/21 11:28 Interval history: Follow-up visit in this 71-year-old man with: Coronary artery disease coronary bypass grafting within the last couple of years presenting to the hospital with syncopal episodes of unclear etiology. Patient has a history of paroxysmal AFib/atrial flutter. Events of last night reviewed, discussed with primary service and Critical Care. As reported patient had somehow become from his BiPAP machine resulting in respiratory failure with resulting bradycardia and pulseless arrest. Telemetry revealed SB and transient low junctional and/or idioventricular rhythm then sinus mechanism. Patient was noted to be pulseless and very prompt ACLS protocol was administered including 3 rounds of epinephrine and CPR as documented with ROSC. He was bagged then intubated successfully and transferred to the ICU. His sotalol was discontinued and his last dose was morning of 05/12/2021. No evidence of complete heart block or torsades on telemetry. Patient currently remains in sinus bradycardia, intubated on mechanical ventilatory support in the ICU. He is on Levophed but BP has been quite stable. Date of service 05/14/2021: Patient remains intubated mechanical ventilator support in the ICU. Sinus rhythm heart rate in the 50s. Events of the weekend reviewed. Currently not on any antiarrhythmic therapy. QT interval did prolonged on sotalol which of course is to be expected. Events of Friday that required re-intubation for review. This was primarily a respiratory event, not in arrhythmia. None the less he is currently in sinus bradycardia. There are mentions in the chart that the patient was on Multaq before coming in the hospital. For the moment he is not on any antiarrhythmic therapy. Exam Narrative: Obese male lying supine intubated, sedated on mechanical ventilatory support Const: General: cooperative, comfortable, no acute distress, alert and awake Nutritional Appearance: well nourished Orientation/consciousness: patient oriented x3 Other: Morbidly obese man in no distress in supine position with BiPAP in place HENMT: Head: normal to inspection, normocephalic and atraumatic Ears: hearing grossly normal bilaterally General nose exam: Normal external nose present and Normal nares present Face and sinus: normal facial exam and no erythema Mouth: Yes moist mucous membranes, No drooling and No restricted motion Throat: uvula midline Eyes: General: appearance normal, both eyes and all related structures Alignment and Position: position normal Conjunctivae: conjunctivae normal Sclera: sclerae normal Neck: Neck: normal visual inspection, supple and no JVD Thyroid: thyroid normal Carotids: no bruits Lymphatic: lymphedema not noted Other: No bruits, hard to assess JVD given obesity Chest: Chest palpation & inspection: normal inspection of the chest and no tenderness Resp: Effort & Inspection: normal respiratory effort and no nasal flaring Auscultation: no crackles, no rales, no wheezes and diminished lung sounds Other: Breath sounds are clear anteriorly Diminished diffusely otherwise Cardio: Jugular venous distension: no JVD
[2021-05-14 12:35] LABS: NT Pro B Type Natriuretic Pept 1770 pg/mL (5-100)
[2021-05-14] MEDS: FUROSEMIDE INJ 40 MG/4 ML VIAL IV PUSH ×2 (13:11→21:00)
--- NOTE | 2021-05-14 16:31 | PM.IMPN ---
Progress Note: A&P Assessment and Plan (1) Acute respiratory failure: Code(s): J96.00 - Acute respiratory failure, unspecified whether with hypoxia or hypercapnia Status: Acute Assessment and Plan: Patient develped cardiac arrest requiring intubation. He did not tolerate breathing trial. Contnue to wean vent as toelrated. Appreciate small equipment operator input. (2) Cardiac arrest: Code(s): I46.9 - Cardiac arrest, cause unspecified Status: Acute Assessment and Plan: Patient on the evening of 05/12 called out and had his BiPAP disconnected. His HR was in the 30's. Staff assessment showing no pulse so CPR started. Epi given x 3 and bicarb x1 with high quality CPR with return of ROSC. He was down for 8 minutes. Patient intubated. QT was prolonged. Troponin noted but felt related to the Code. Suspect related to respiratory failure from the BiPAP coming apart. Patient remains on Keppra post-code. CT brain showing no acute findings. (3) Syncopal episodes: Qualifiers: Syncope type: unspecified Qualified Code(s): R55 - Syncope and collapse Code(s): R55 - Syncope and collapse Status: Acute Assessment and Plan: Multiple syncopal episodes prior to admission with head trauma. EKG with atrial fibrillation with RVR. COVID test was negative. He does have TRACY to suggest dehydration so consider orthostatic HoTN (but not seen on set done in ED although not sure if he received IV fluids prior). Also with AFib/RVR which also may be contributing to his syncopal episodes. He has converted to NSR. (4) TRACY (acute kidney injury): Code(s): N17.9 - Acute kidney failure, unspecified Status: Acute Assessment and Plan: Baseline Cr 0.9-1.2. Cr 2.1 on admission. He was on Lasix and Losartan on admission. Renal US normal. Cr has improved to 1.2 before worsening after the Code Blue to 1.6. Continue to monitor. (5) Atrial fibrillation with rapid ventricular response: Code(s): I48.91 - Unspecified atrial fibrillation Status: Resolved Assessment and Plan: EKG on admission showing AFib. he was on Xarelto. He was started on Amio drip to control rate but may have had a reaction to this in the past. Echo showing EF 65-70% with Grade II diastolic dysfunction. Cardiology changed him to Sotalol but this was stopped due to the prolonged QT. Appreciate Cardiology input. Consider adding back metoprolol when able. (6) Rhabdomyolysis: Code(s): M62.82 - Rhabdomyolysis Status: Acute Assessment and Plan: TCK 1172. Suspect mild rhabdomyolysis. Related to syncope/falls? Medications? Renal function as above. LFTs okay. TCK normal now. Lipitor on hold. (7) COPD (chronic obstructive pulmonary disease) with emphysema: Qualifiers: Emphysema type: unspecified Qualified Code(s): J43.9 - Emphysema, unspecified Code(s): J43.9 - Emphysema, unspecified Status: Acute Assessment and Plan: Patient with COPD and hx of tobacco abuse with exacerbation. Patient was wheezing and was started on Solu-Medrol and nebs. Continue to follow. (8) Anemia: Qualifiers: Anemia type: other cause Other causes of anemia: chronic disease, other Qualified Code(s): D63.8 - Anemia in other chronic diseases classified elsewhere Code(s): D64.9 - Anemia, unspecified Status: Acute Assessment and Plan: Hgb mostly 10-11 as baseline. Hgb 9.0 on admission and has dropped to 7-8 range. Iron studies consistent with iron deficiency. B12 level also low end of normal. B12 IM once. Continue iron and B12. Continue PPI. Transfuse as necessary. (9) Nail avulsion of toe: Qualifiers: Encounter type: initial encounter Qualified Code(s): S91.209A - Unspecified open wound of unspecified toe(s) with damage to nail, initial encounter Code(s): S91.209A - Unspecified open wound of unspecified toe(s) with damage to nail, init
[2021-05-14] MEDS: RIVAROXABAN 20 MG TABLET PO (17:15)
[2021-05-14 17:19] LABS: Glucose Point of Care 213 mg/dl (65-105)
[2021-05-14] MEDS: ALBUTEROL SULFATE NEB 2.5 MG/0.5 ML INH 5 MG INHALATION (20:30)
--- NOTE | 2021-05-14 21:28 | PCRCNOTE ---
Unable to administer inhaler, patient is on a ventilator.
[2021-05-15] VITALS (28 sets, daily range): BP systolic 99–127; BP diastolic 43–57; PULSE 62–118; RESP 16–24; TEMP 36.1–38.1; O2SAT 16–98
[2021-05-15] MEDS: INSULIN ASPART (*BKC) 100 UNITS/ML SUB-Q ×4 (01:20→17:57)
[2021-05-15 01:23] LABS: Glucose Point of Care 221 mg/dl (65-105)
[2021-05-15] MEDS: ALBUTEROL SULFATE NEB 2.5 MG/0.5 ML INH 5 MG INHALATION (02:22)
[2021-05-15] MEDS: IPRATROPIUM BR 0.02% INH SOLN 0.5 MG/2.5 ML VIAL INHALATION ×4 (02:22→20:32)
[2021-05-15 04:57] LABS: Hematocrit 26.2 % (42.0-52.0); Hemoglobin 8.1 g/dL (14.0-18.0); Mean Corpuscular HGB Conc 30.9 g/dl (32-36); Mean Corpuscular Hemoglobin 28.4 pg (26-34); Mean Corpuscular Volume 91.9 fl (80-100); Mean Platelet Volume 10.2 fl (7.4-10.4); Platelet Count Result 334 k/mm3 (150-375); Red Blood Count 2.85 M/mm3 (4.6-6.20); Red Cell Distribution Width 15.9 % (11.5-14.5); White Blood Count 10.9 K/mm3 (4.5-10.0)
[2021-05-15 05:08] LABS: Base Excess ABG 5.3 mEq/l (+/-2.0); Carboxyhemoglobin 0.3 % THb (0-2.0); Fractional Inspired Oxygen 40 %; HCO3 ABG 29.8 mEq/l (22.0-26.0); Methemoglobin ABG 0.1 %THb (0-1.5); PCO2 ABG 43.6 mmHg (35.0-45.0); PO2 ABG 50.1 mmHg (80.0-100.0); PO2 FiO2 Ratio Arterial Blood 1.25 %; Reduced Hemoglobin 14.8 %THb (0-5.0); Total Hemoglobin 9.2 g/dL (12.0-18.0); pH ABG 7.453 (7.350-7.450)
[2021-05-15 05:14] LABS: Alanine Aminotransferase 28 U/L (4-50); Albumin Level 3.4 g/dL (3.5-5.1); Alkaline Phosphatase 62 U/L (38-126); Anion Gap 3 mmol/L (8-16); Aspartate Amino Transferase 22 U/L (17-59); Bilirubin,Total 0.9 mg/dL (0.2-1.3); Blood Urea Nitrogen 52 mg/dL (9-20); Carbon Dioxide 33 mmol/L (22-30); Chloride 105 mmol/L (98-107); Creatine Kinase 88 U/L (55-170); Estimated CRCL calculation 54 ml/min; Estimated Glomerular Filt Rate 40; Glucose 227 mg/dL (65-110); Potassium 3.7 mmol/L (3.4-5.0); Sodium 141 mmol/L (137-145)
[2021-05-15 05:14] LABS: Oxyhemoglobin 84.8 % THb (90.0-100.0)
[2021-05-15 05:15] LABS: Arterial Blood Gas PEEP 8 cmH2O; Arterial Blood Gas Tidal Volume 450 ml; Arterial Blood Gas Vent Mode CMV; Arterial Blood Gas Ventilator rate 24 /MIN; Device VENTILATOR; Modified Allen's Test Unable to perform; Site Drawn LEFT RADIAL
[2021-05-15 05:33] LABS: INR 2.4; Prothrombin Time 25.9 Seconds (11.1-14.7)
[2021-05-15] MEDS: CENTRAL LINE FLUSH 10 ML IV PUSH ×3 (05:52→17:58)
[2021-05-15] MEDS: BUDESONIDE RESPULE NEB 0.5 MG/2 ML AMP INHALATION ×2 (08:05→20:32)
[2021-05-15] MEDS: FERROUS SULFATE 324 MG TABLET PO ×2 (08:26→17:57)
[2021-05-15] MEDS: FUROSEMIDE INJ 40 MG/4 ML VIAL (08:27)
[2021-05-15] MEDS: ASPIRIN 81 MG ENTERIC TABLET PO (08:27)
[2021-05-15] MEDS: CYANOCOBALAMIN 1,000 MCG TABLET 1000 MCG PO (08:27)
[2021-05-15] MEDS: INSULIN GLARGINE (*BKC) 100 UNITS/ML 15 UNITS SUB-Q (08:28)
[2021-05-15] MEDS: levETIRAcetam ORAL SOL 500 MG/5 ML UDC FEED TUBE ×2 (08:28→22:00)
[2021-05-15] MEDS: MINERAL OIL/WHITE PETROLATUM OINTMENT 1 APPLIC EACH EYE ×2 (08:29→23:00)
[2021-05-15] MEDS: methylPREDNISolone SOD SUCC 125 MG VIAL 60 MG IV PUSH (08:29)
[2021-05-15] MEDS: PANTOPRAZOLE SODIUM IV 40 MG VIAL IV PUSH ×2 (08:29→22:00)
[2021-05-15 09:25] LABS: Methylmalonic Acid 185 nmol/L (87-318)
[2021-05-15] MEDS: FENTANYL 2,500MCG/NS250ML(*CRX 2,500 MCG/250 ML BAG IV CONT (09:37)
[2021-05-15] MEDS: MIDAZOLAM 100MG/NS 100ML(*CRX) 100 MG/100 ML BAG IV CONT (09:38)
--- NOTE | 2021-05-15 11:39 | PM.PNCARD ---
Progress Note: A&P Assessment and Plan (1) Acute respiratory failure: Code(s): J96.00 - Acute respiratory failure, unspecified whether with hypoxia or hypercapnia Status: Acute Assessment and Plan: Currently intubated and on mechanical ventilatory support. Further management per Critical Care. Respiratory arrest secondary to apparent decoupling from BiPAP resulting in severe bradycardia resolved with oxygenation and intubation. Sotalol discontinued. Patient remains critically ill. (2) Cardiac arrest: Code(s): I46.9 - Cardiac arrest, cause unspecified Status: Acute Assessment and Plan: As above. Primary respiratory failure resulting in bradycardia and pulseless arrest. Currently maintaining sinus rhythm without the use of any antiarrhythmics at this point. (3) QT prolongation: Code(s): R94.31 - Abnormal electrocardiogram [ECG] [EKG] Status: Acute Assessment and Plan: Had mild QT prolongation on EKG 480 milliseconds on sotalol. Repeat EKG post arrest in sinus rhythm QT corrected interval 474msec. Would avoid sotalol. Difficult management should he have recurrence of atrial fibrillation. (4) Atrial fibrillation with rapid ventricular response: Code(s): I48.91 - Unspecified atrial fibrillation Status: Resolved Assessment and Plan: Maintaining sinus bradycardia. As above. (5) Syncope: Qualifiers: Syncope type: unspecified Qualified Code(s): R55 - Syncope and collapse Code(s): R55 - Syncope and collapse Status: Acute Assessment and Plan: More likely acute renal failure orthostasis less likely AFib. (6) Anemia: Qualifiers: Anemia type: other cause Other causes of anemia: chronic disease, other Qualified Code(s): D63.8 - Anemia in other chronic diseases classified elsewhere Code(s): D64.9 - Anemia, unspecified Status: Acute Assessment and Plan: Stable, continue to monitor H&H. GI consultation noted. Anemia chronic disease no evidence of active bleed. (7) Rhabdomyolysis: Code(s): M62.82 - Rhabdomyolysis Status: Acute Assessment and Plan: (8) TRACY (acute kidney injury): Code(s): N17.9 - Acute kidney failure, unspecified Status: Acute Assessment and Plan: Stable thus far Continue to follow. (9) CAD (coronary artery disease): Qualifiers: Associated angina: unspecified whether angina present Coronary Disease-Associated Artery/Lesion type: unspecified vessel or lesion type [place] vs. transplanted heart: unspecified whether [place] or transplanted heart Qualified Code(s): I25.10 - Atherosclerotic heart disease of [place] coronary artery without angina pectoris Code(s): I25.10 - Atherosclerotic heart disease of [place] coronary artery without angina pectoris Status: Acute Assessment and Plan: stable, no acute issues at this time. Continue current medical therapy. Subjective Date/time seen: 05/15/21 11:39 Interval history: Follow-up visit in this 71-year-old man with: Coronary artery disease coronary bypass grafting within the last couple of years presenting to the hospital with syncopal episodes of unclear etiology. Patient has a history of paroxysmal AFib/atrial flutter. Events of last night reviewed, discussed with primary service and Critical Care. As reported patient had somehow become from his BiPAP machine resulting in respiratory failure with resulting bradycardia and pulseless arrest. Telemetry revealed SB and transient low junctional and/or idioventricular rhythm then sinus mechanism. Patient was noted to be pulseless and very prompt ACLS protocol was administered including 3 rounds of epinephrine and CPR as documented with ROSC. He was bagged then intubated successfully and transferred to the ICU. His sotalol was discontinued and his last dose was morning of 05/12/2021. No evidence of compl
[2021-05-15 12:28] LABS: Glucose Point of Care 313 mg/dl (65-105)
--- NOTE | 2021-05-15 13:20 | PCNFU ---
Nutrition Follow-Up Complete: Inadequate Oral Intake as related to mechanical ventilation as evidenced by NPO. Goal: Meet estimated nutritional needs Patient will continue current goal. Pt current nutrition is Vital AF 1.2 at 50 ml/hr, goal rate at 70 ml/hr Last recorded weight is 145.7 kg-stable Bowel Motility:+BM reported 05/15 Labs Reviewed:Alb 3.4,BUN 52, Cr 1.7,Mg 3.0,Hgb 8.1,Hct 26.2 Meds Noted:Fentanyl, Versed, Ferrous Sulfate, Vit B12, Solu-Medrol, Protonix, Atrovent, Keppra, NovoLog, Lantus. Skin: WNL Additional Notes:Patient remains on mechanical vent and tube feedings of Vital AF 1.2 at 50 ml/hr, goal rate at 70 ml/hr. Tolerating per nursing. Free water flush 30 ml q 4 hours. Goal rate on tube feedings will provide 1848 kcals/116 gm protein/1249 ml water. Agree with diet orders. Will monitor in ICU and reassessing every Friday and Friday.
--- NOTE | 2021-05-15 14:06 | WPDINTPN ---
Progress Note: A&P Assessment and Plan (1) Acute respiratory failure: Code(s): J96.00 - Acute respiratory failure, unspecified whether with hypoxia or hypercapnia Status: Acute Assessment and Plan: Acute respiratory failure likely related to the arrest, severe COPD, possible pneumonia, congestive heart failure -currently on CMV mode of ventilation, peep of 8, 50% FiO2. Will wean FiO2 -chest x-ray reviewed, continue Lasix -continue bronchodilators, Pulmicort -sedated with fentanyl,Versed infusion, maintain RASS of 0 to -2 (2) Cardiac arrest: Code(s): I46.9 - Cardiac arrest, cause unspecified Status: Acute Assessment and Plan: Cardiac arrest most likely related to respiratory event as his BiPAP was pulled apart and patient went into bradycardic and pulseless arrest -cardiology following the patient -patient was recently also started on sotalol which has been discontinued. Only sinus bradycardia -echocardiogram 05/10/2021 showed an EF of 65-70%. Grade 2 diastolic dysfunction, no aortic valve stenosis. -mild elevation in the troponins which are flat -patient with known coronary artery disease status post CABG and had cardiac catheterization done showed patent grafts and had stenting of his left subclavian artery stenosis. (3) TRACY (acute kidney injury): Code(s): N17.9 - Acute kidney failure, unspecified Status: Acute Assessment and Plan: Acute kidney injury with creatinine of 2.6 on admission -creatinine is stable around 1.7 this morning -continue Lasix for pulmonary edema -continue to monitor urine output, renal function electrolytes (4) COPD (chronic obstructive pulmonary disease) with emphysema: Qualifiers: Emphysema type: unspecified Qualified Code(s): J43.9 - Emphysema, unspecified Code(s): J43.9 - Emphysema, unspecified Status: Acute Assessment and Plan: History of COPD with emphysema, continue bronchodilators and Pulmicort Continue daily Solu-Medrol (5) Rhabdomyolysis: Code(s): M62.82 - Rhabdomyolysis Status: Acute Assessment and Plan: CK levels have normalized (6) Anemia: Qualifiers: Anemia type: other cause Other causes of anemia: chronic disease, other Qualified Code(s): D63.8 - Anemia in other chronic diseases classified elsewhere Code(s): D64.9 - Anemia, unspecified Status: Acute Assessment and Plan: Patient presented with anemia, he has been on Xarelto, with multiple falls. Multiple bruising -appreciate GI evaluation and recommendations. Patient does have heme-positive stools on Xarelto and aspirin -anemia is likely multifactorial with possible chronic kidney disease, anemia of chronic disease, GI loss. No evidence of active GI bleed Stated-continue PPI -GI also recommended iron and Epogen. No endoscopic intervention at this time as he is a poor candidate with significant cardiac and pulmonary comorbidities (7) DVT prophylaxis: Code(s): Z29.9 - Encounter for prophylactic measures, unspecified Status: Acute Assessment and Plan: Continue Xarelto Additional Plan Stress ulcer prophylaxis: Protonix q.12 hours Nutrition - Continue tube feeds Code status: Full code Critical care time spent: 30 minutes This dictation may have been done utilizing a voice recognition system. Attempts have been made to correct errors. However, there may be uncorrected grammatical, spelling, and recognition errors present. Due to a high probability of clinically significant, life threatening deterioration, the patient required my highest level of preparedness to intervene emergently and I personally spent this critical care time directly and personally managing the patient. This critical care time included obtaining a history; examining the patient; pulse oximetry; ordering and review of studies; arranging urgent treatment with development of a management plan; evaluation of patient's r
[2021-05-15] MEDS: FUROSEMIDE INJ 40 MG/4 ML VIAL IV PUSH (17:57)
[2021-05-15] MEDS: RIVAROXABAN 20 MG TABLET PO (17:57)
[2021-05-15 18:28] LABS: Glucose Point of Care 319 mg/dl (65-105)
[2021-05-15] MEDS: METOPROLOL TARTRATE 25 MG TABLET FEED TUBE (22:00)
[2021-05-16] VITALS (30 sets, daily range): BP systolic 101–160; BP diastolic 48–78; PULSE 64–773; RESP 12–26; TEMP 36.1–37.4; O2SAT 92–99
[2021-05-16 00:25] LABS: Glucose Point of Care 291 mg/dl (65-105)
[2021-05-16] MEDS: CENTRAL LINE FLUSH 10 ML IV PUSH ×5 (01:54→20:25)
[2021-05-16] MEDS: IPRATROPIUM BR 0.02% INH SOLN 0.5 MG/2.5 ML VIAL INHALATION ×4 (01:54→20:29)
[2021-05-16] MEDS: INSULIN ASPART (*BKC) 100 UNITS/ML SUB-Q ×6 (01:55→20:21)
[2021-05-16 04:31] LABS: Alveolar/Arterial O2 Gradient 162.9 mmHg; Base Excess ABG 7.5 mEq/l (+/-2.0); Carboxyhemoglobin 0.2 % THb (0-2.0); Device VENTILATOR; Fractional Inspired Oxygen 40 %; HCO3 ABG 32.9 mEq/l (22.0-26.0); Methemoglobin ABG 0.2 %THb (0-1.5); Modified Allen's Test Pass; Oxygen Content ABG 11.7 %vol (16.0-22.0); Oxygen Saturation ABG 92.6 % (95.0-100.0); Oxyhemoglobin 89.6 % THb (90.0-100.0); PCO2 ABG 50.9 mmHg (35.0-45.0); PO2 ABG 63.8 mmHg (80.0-100.0); Site Drawn RIGHT RADIAL; Total Hemoglobin 9.2 g/dL (12.0-18.0); pH ABG 7.428 (7.350-7.450)
[2021-05-16 04:32] LABS: Arterial Blood Gas PEEP 8 cmH2O; Arterial Blood Gas Tidal Volume 450 ml; Arterial Blood Gas Vent Mode CMV; Arterial Blood Gas Ventilator rate 24 /MIN
[2021-05-16 06:16] LABS: Hematocrit 28.5 % (42.0-52.0); Hemoglobin 8.9 g/dL (14.0-18.0); Mean Corpuscular HGB Conc 31.2 g/dl (32-36); Mean Corpuscular Hemoglobin 28.7 pg (26-34); Mean Corpuscular Volume 91.9 fl (80-100); Mean Platelet Volume 10.2 fl (7.4-10.4); Platelet Count Result 391 k/mm3 (150-375); Red Cell Distribution Width 16.7 % (11.5-14.5); White Blood Count 19.1 K/mm3 (4.5-10.0)
[2021-05-16 06:23] LABS: Alanine Aminotransferase 26 U/L (4-50); Albumin Level 3.4 g/dL (3.5-5.1); Alkaline Phosphatase 76 U/L (38-126); Anion Gap 3 mmol/L (8-16); Aspartate Amino Transferase 36 U/L (17-59); Bilirubin,Total 1.1 mg/dL (0.2-1.3); Blood Urea Nitrogen 59 mg/dL (9-20); Calcium 8.1 mg/dL (8.4-10.2); Carbon Dioxide 37 mmol/L (22-30); Chloride 106 mmol/L (98-107); Estimated CRCL calculation 51 ml/min; Estimated Glomerular Filt Rate 38; Glucose 257 mg/dL (65-110); Magnesium 3.1 mg/dL (1.6-2.3); Potassium 3.4 mmol/L (3.4-5.0); Sodium 146 mmol/L (137-145)
--- NOTE | 2021-05-16 08:08 | WPDINTPN ---
Progress Note: A&P Assessment and Plan (1) Acute respiratory failure: Code(s): J96.00 - Acute respiratory failure, unspecified whether with hypoxia or hypercapnia Status: Acute Assessment and Plan: Acute respiratory failure likely related to the arrest, severe COPD, possible pneumonia, congestive heart failure -currently on CMV mode of ventilation, peep of 8, 40% FiO2. Will wean FiO2 -chest x-ray reviewed and shows improvement continue Lasix -weaning trial today after a sedation holiday -continue bronchodilators, Pulmicort -sedated with fentanyl,Versed infusion, maintain RASS of 0 to -2 (2) Cardiac arrest: Code(s): I46.9 - Cardiac arrest, cause unspecified Status: Acute Assessment and Plan: Cardiac arrest most likely related to respiratory event as his BiPAP was pulled apart and patient went into bradycardic and pulseless arrest -cardiology following the patient -patient was recently also started on sotalol which has been discontinued. Only sinus bradycardia -echocardiogram 05/10/2021 showed an EF of 65-70%. Grade 2 diastolic dysfunction, no aortic valve stenosis. -mild elevation in the troponins which are flat -patient with known coronary artery disease status post CABG and had cardiac catheterization done showed patent grafts and had stenting of his left subclavian artery stenosis. (3) TRACY (acute kidney injury): Code(s): N17.9 - Acute kidney failure, unspecified Status: Acute Assessment and Plan: Acute kidney injury with creatinine of 2.6 on admission -creatinine 1.8 today -continue Lasix for pulmonary edema -continue to monitor urine output, renal function electrolytes (4) COPD (chronic obstructive pulmonary disease) with emphysema: Qualifiers: Emphysema type: unspecified Qualified Code(s): J43.9 - Emphysema, unspecified Code(s): J43.9 - Emphysema, unspecified Status: Acute Assessment and Plan: History of COPD with emphysema, continue bronchodilators and Pulmicort Continue daily Solu-Medrol (5) Rhabdomyolysis: Code(s): M62.82 - Rhabdomyolysis Status: Acute Assessment and Plan: CK levels have normalized (6) Anemia: Qualifiers: Anemia type: other cause Other causes of anemia: chronic disease, other Qualified Code(s): D63.8 - Anemia in other chronic diseases classified elsewhere Code(s): D64.9 - Anemia, unspecified Status: Acute Assessment and Plan: Patient presented with anemia, he has been on Xarelto, with multiple falls. Multiple bruising -appreciate GI evaluation and recommendations. Patient does have heme-positive stools on Xarelto and aspirin -anemia is likely multifactorial with possible chronic kidney disease, anemia of chronic disease, GI loss. No evidence of active GI bleed Stated-continue PPI -GI also recommended iron and Epogen. No endoscopic intervention at this time as he is a poor candidate with significant cardiac and pulmonary comorbidities (7) DVT prophylaxis: Code(s): Z29.9 - Encounter for prophylactic measures, unspecified Status: Acute Assessment and Plan: Continue Xarelto (8) Leucocytosis: Qualifiers: Leukocytosis type: unspecified Qualified Code(s): D72.829 - Elevated white blood cell count, unspecified Code(s): D72.829 - Elevated white blood cell count, unspecified Status: Acute Assessment and Plan: Patient is also on steroids. He he did had low-grade fever but chest x-ray shows Send UA and a set of cultures (9) Hyperglycemia: Code(s): R73.9 - Hyperglycemia, unspecified Status: Acute Assessment and Plan: Patient on steroids and tube feeds Increase Lantus Change SSI to q.4 hours Additional Plan Stress ulcer prophylaxis: Protonix q.12 hours Nutrition - Continue tube feeds Code status: Full code Critical care time spent: 31 minutes This dictation may have been done utilizing a v
[2021-05-16] MEDS: BUDESONIDE RESPULE NEB 0.5 MG/2 ML AMP INHALATION ×2 (08:19→20:29)
[2021-05-16] MEDS: levETIRAcetam ORAL SOL 500 MG/5 ML UDC FEED TUBE ×2 (08:43→20:26)
[2021-05-16] MEDS: INSULIN GLARGINE (*BKC) 100 UNITS/ML 10 UNITS SUB-Q (08:43)
[2021-05-16] MEDS: METOPROLOL TARTRATE 25 MG TABLET FEED TUBE ×2 (08:43→20:24)
[2021-05-16] MEDS: methylPREDNISolone SOD SUCC 125 MG VIAL 60 MG IV PUSH (08:44)
[2021-05-16] MEDS: FUROSEMIDE INJ 40 MG/4 ML VIAL IV PUSH (08:45)
[2021-05-16] MEDS: PANTOPRAZOLE SODIUM IV 40 MG VIAL IV PUSH ×2 (08:45→20:25)
[2021-05-16] MEDS: MINERAL OIL/WHITE PETROLATUM OINTMENT 1 APPLIC EACH EYE ×2 (08:45→20:26)
[2021-05-16 08:48] LABS: Glucose Point of Care 207 mg/dl (65-105)
[2021-05-16] MEDS: ASPIRIN 81 MG ENTERIC TABLET PO (08:50)
[2021-05-16] MEDS: CYANOCOBALAMIN 1,000 MCG TABLET 1000 MCG PO (08:50)
[2021-05-16 08:58] LABS: Alveolar/Arterial O2 Gradient 152.9 mmHg; Base Excess ABG 9.6 mEq/l (+/-2.0); Fractional Inspired Oxygen 40 %; Oxygen Content ABG 12.5 %vol (16.0-22.0); Oxygen Saturation ABG 91.7 % (95.0-100.0); PCO2 ABG 59.7 mmHg (35.0-45.0); PO2 ABG 63.6 mmHg (80.0-100.0); PO2 FiO2 Ratio Arterial Blood 1.59 %; Total Hemoglobin 10.1 g/dL (12.0-18.0); pH ABG 7.398 (7.350-7.450)
[2021-05-16 08:59] LABS: Device VENTILATOR; Modified Allen's Test Pass; Oxyhemoglobin 87.9 % THb (90.0-100.0); Site Drawn RIGHT RADIAL
[2021-05-16 09:00] LABS: Arterial Blood Gas PEEP 5 cmH2O; Arterial Blood Gas Pressure Support 5 cmH2O; Arterial Blood Gas Vent Mode SPONTANEOUS
[2021-05-16] MEDS: FERROUS SULFATE 324 MG TABLET PO ×2 (09:00→17:21)
--- NOTE | 2021-05-16 09:53 | PCFNICU ---
ICU Rounding Note: Pt current nutrition is Vital AF 1.2 at 70 ml/hr over 22 hours. Last recorded weight is 145.7 kg-stable Bowel Motility:+BM reported 05/15 Labs Reviewed:Na 146, Hct 28.5, Hgb 8.9,GFR 38, Cr 1.8,Mg 3.1, Glu 257 Meds Noted: Versed,Fentanyl, Solu-Medrol, Protonix, Atrovent, NovoLog, Keppra, Lantus, Lopressor, Protonix. Skin: WNL Additional Notes: Patient remains on mechanical vent and tube feeding of Vital AF 1.2 at 70 ml/hr over 22 hours. Free water flush 30 ml q 4 hours. Spoke with nursing today,plans for breathing trial today. Agree with diet orders. Following daily in ICU rounds. Will monitor every Friday and Friday.
[2021-05-16] MEDS: FENTANYL 2,500MCG/NS250ML(*CRX 2,500 MCG/250 ML BAG 10 MCG IV CONT (09:54)
[2021-05-16 12:09] LABS: Glucose Point of Care 292 mg/dl (65-105)
--- NOTE | 2021-05-16 12:17 | PM.IMPN ---
Progress Note: A&P Assessment and Plan (1) Acute respiratory failure: Code(s): J96.00 - Acute respiratory failure, unspecified whether with hypoxia or hypercapnia Status: Acute Assessment and Plan: Patient developed cardiac arrest requiring intubation. He did not tolerate breathing trial again today. ABG 7.40/60/63 on MV. CXR reviewed showing airspace opacities in the perihilar regions and lung bases with interval improvement. Continue to wean vent as tolerated. 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 (2) Cardiac arrest: Code(s): I46.9 - Cardiac arrest, cause unspecified Status: Acute Assessment and Plan: Patient on the evening of 05/12 called out and was found the BiPAP disconnected. His HR was in the 30's. Staff assessment showing no pulse so CPR started. Epi given x 3 and bicarb x1 with high quality CPR with return of ROSC. He was down for 8 minutes. Patient intubated. QT was prolonged. Troponin noted but felt related to the Code. Suspect related to respiratory failure from the BiPAP coming apart. Patient remains on Keppra post-code. CT brain showing no acute findings. (3) Syncopal episodes: Qualifiers: Syncope type: unspecified Qualified Code(s): R55 - Syncope and collapse Code(s): R55 - Syncope and collapse Status: Acute Assessment and Plan: Multiple syncopal episodes prior to admission with head trauma. EKG with atrial fibrillation with RVR. COVID test was negative. He does have TRACY to suggest dehydration so consider orthostatic HoTN (but not seen in ED although not sure if he received IV fluids prior). Also with AFib/RVR which also may be contributing to his syncopal episodes. He has converted to NSR. (4) Leucocytosis: Qualifiers: Leukocytosis type: unspecified Qualified Code(s): D72.829 - Elevated white blood cell count, unspecified Code(s): D72.829 - Elevated white blood cell count, unspecified Status: Acute Assessment and Plan: WBC 19K now. CXR showing perihilar opacities felt related to edema but can not exclude PNA. Low grade fevers yesterday but none since. Related to steroids? He is not on abx. Follow for now. (5) Hyperglycemia: Code(s): R73.9 - Hyperglycemia, unspecified Status: Acute Assessment and Plan: The patient's blood glucose was reviewed on 2/2 Glucose remains poorly controlled possibly related to the steroids. Not known to have DM. Continue AccuCheks covering with sliding scale. Hypoglycemia protocol available as needed. Lantus started. Check A1c (6) TRACY (acute kidney injury): Code(s): N17.9 - Acute kidney failure, unspecified Status: Acute Assessment and Plan: Baseline Cr 0.9-1.2. Cr 2.1 on admission. He was on Lasix and Losartan on admission. Renal US normal. Cr improved to 1.2 before worsening after the Code Blue to 1.8 today. Stop Lasix? Continue to monitor. (7) Atrial fibrillation with rapid ventricular response: Code(s): I48.91 - Unspecified atrial fibrillation Status: Resolved Assessment and Plan: EKG on admission showing AFib. He was on Xarelto. Echo showing EF 65-70% with Grade II diastolic dysfunction. He was started on Amio drip to control rate but may have had a reaction to this in the past so Cardiology changed him to Sotalol but this was stopped due to the prolonged QT. Metoprolol has since been added back. Appreciate Cardiology input. (8) Rhabdomyolysis: Code(s): M62.82 - Rhabdomyolysis Status: Acute Assessment and Plan: TCK 1172. Suspect mild rhabdomyolysis. Related to syncope/falls? Medications? Renal function as above. LFTs okay. TCK normal now. Lipitor was on hold. Will resume and follow. (9) COPD (chronic obstructive pulmonary disease) with emphysema: Qualifiers: Emphysema type: unspecified Qualified Code(s): J43.9 - Emphysema, unspecified Code(s): J43.9 - Emphysema, unspeci
[2021-05-16 14:45] LABS: Soluble Transferrin Receptor 0.95 mg/L (0.76-1.76)
[2021-05-16 16:35] LABS: Glucose Point of Care 383 mg/dl (65-105)
[2021-05-16] MEDS: ATORVASTATIN 40 MG TABLET FEED TUBE (17:20)
[2021-05-16] MEDS: RIVAROXABAN 20 MG TABLET PO (17:21)
[2021-05-16] MEDS: INSULIN GLARGINE (*BKC) 100 UNITS/ML 15 UNITS SUB-Q (20:22)
[2021-05-16] MEDS: ALBUTEROL SULFATE NEB 2.5 MG/0.5 ML INH 5 MG INHALATION (20:29)
[2021-05-16 20:36] LABS: Glucose Point of Care 317 mg/dl (65-105)
[2021-05-17] VITALS (35 sets, daily range): BP systolic 102–140; BP diastolic 45–64; PULSE 62–131; RESP 12–25; TEMP 36.2–37.2; O2SAT 90–98
[2021-05-17 00:15] LABS: Glucose Point of Care 335 mg/dl (65-105)
[2021-05-17] MEDS: INSULIN ASPART (*BKC) 100 UNITS/ML SUB-Q ×6 (00:17→23:38)
[2021-05-17] MEDS: IPRATROPIUM BR 0.02% INH SOLN 0.5 MG/2.5 ML VIAL INHALATION ×4 (01:09→20:29)
[2021-05-17] MEDS: MIDAZOLAM 100MG/NS 100ML(*CRX) 100 MG/100 ML BAG IV CONT (03:15)
[2021-05-17] MEDS: FENTANYL 2,500MCG/NS250ML(*CRX 2,500 MCG/250 ML BAG 15 MCG IV CONT (03:16)
[2021-05-17 04:58] LABS: Alveolar/Arterial O2 Gradient 112.4 mmHg; Base Excess ABG 8.8 mEq/l (+/-2.0); Carboxyhemoglobin 0.2 % THb (0-2.0); Device VENTILATOR; Fractional Inspired Oxygen 35 %; HCO3 ABG 34.7 mEq/l (22.0-26.0); Methemoglobin ABG 0.1 %THb (0-1.5); Modified Allen's Test Pass; Oxygen Saturation ABG 94.3 % (95.0-100.0); Oxyhemoglobin 91.4 % THb (90.0-100.0); PO2 ABG 72.1 mmHg (80.0-100.0); PO2 FiO2 Ratio Arterial Blood 2.06 %; Reduced Hemoglobin 8.3 %THb (0-5.0); Site Drawn RIGHT RADIAL; Total Hemoglobin 9.3 g/dL (12.0-18.0)
[2021-05-17 04:59] LABS: Arterial Blood Gas PEEP 5 cmH2O; Arterial Blood Gas Tidal Volume 450 ml; Arterial Blood Gas Vent Mode CMV; Arterial Blood Gas Ventilator rate 24 /MIN
[2021-05-17 06:06] LABS: Hematocrit 26.4 % (42.0-52.0); Mean Corpuscular HGB Conc 30.3 g/dl (32-36); Mean Corpuscular Hemoglobin 28.5 pg (26-34); Mean Platelet Volume 10.2 fl (7.4-10.4); Platelet Count Result 342 k/mm3 (150-375); Red Blood Count 2.81 M/mm3 (4.6-6.20); White Blood Count 14.2 K/mm3 (4.5-10.0)
[2021-05-17 06:11] LABS: Glucose Point of Care 290 mg/dl (65-105)
[2021-05-17 06:26] LABS: Alanine Aminotransferase 26 U/L (4-50); Albumin Level 3.1 g/dL (3.5-5.1); Alkaline Phosphatase 80 U/L (38-126); Anion Gap 4 mmol/L (8-16); Aspartate Amino Transferase 32 U/L (17-59); Bilirubin,Total 0.8 mg/dL (0.2-1.3); Blood Urea Nitrogen 57 mg/dL (9-20); Carbon Dioxide 38 mmol/L (22-30); Chloride 109 mmol/L (98-107); Estimated CRCL calculation 61 ml/min; Estimated Glomerular Filt Rate 46; Glucose 324 mg/dL (65-110); Magnesium 3.1 mg/dL (1.6-2.3); Potassium 3.3 mmol/L (3.4-5.0); Sodium 151 mmol/L (137-145)
[2021-05-17] MEDS: CENTRAL LINE FLUSH 10 ML IV PUSH ×4 (06:33→20:04)
[2021-05-17 07:38] LABS: Glucose Point of Care 296 mg/dl (65-105)
[2021-05-17] MEDS: BUDESONIDE RESPULE NEB 0.5 MG/2 ML AMP INHALATION ×2 (07:53→20:29)
[2021-05-17] MEDS: dexmedeTOMIDine 400 MCG/100 ML 400 MCG/100 ML BAG 10.5 MCG IV CONT (08:16)
--- NOTE | 2021-05-17 08:25 | PC.NURSE ---
Dr. Kelly stated to start precidex at .3 then quickly titrate up to .5, the wean other sedation off for posible extubation
[2021-05-17] MEDS: INSULIN GLARGINE (*BKC) 100 UNITS/ML 15 UNITS SUB-Q ×3 (08:36→20:36)
[2021-05-17 08:53] LABS: Hemoglobin A1C 7.5 % (<5.7)
[2021-05-17] MEDS: METOPROLOL TARTRATE 25 MG TABLET FEED TUBE ×2 (08:54→20:04)
[2021-05-17] MEDS: MINERAL OIL/WHITE PETROLATUM OINTMENT 1 APPLIC EACH EYE ×2 (08:55→20:04)
[2021-05-17] MEDS: methylPREDNISolone SOD SUCC 125 MG VIAL 60 MG IV PUSH (08:55)
[2021-05-17] MEDS: ASPIRIN 81 MG ENTERIC TABLET PO (08:55)
[2021-05-17] MEDS: FERROUS SULFATE 324 MG TABLET PO ×2 (08:55→16:24)
[2021-05-17] MEDS: ATORVASTATIN 40 MG TABLET FEED TUBE (08:55)
[2021-05-17] MEDS: CYANOCOBALAMIN 1,000 MCG TABLET 1000 MCG PO (08:55)
[2021-05-17] MEDS: PANTOPRAZOLE SODIUM IV 40 MG VIAL IV PUSH ×2 (08:55→20:03)
[2021-05-17] MEDS: POTASSIUM CHLORIDE 20 MEQ PACKET (FOR LIQUID) 40 MEQ FEED TUBE (08:55)
[2021-05-17] MEDS: FUROSEMIDE INJ 40 MG/4 ML VIAL IV PUSH (08:55)
[2021-05-17] MEDS: levETIRAcetam ORAL SOL 500 MG/5 ML UDC FEED TUBE ×2 (08:56→20:04)
--- NOTE | 2021-05-17 10:45 | WPDINTPN ---
Progress Note: A&P Assessment and Plan (1) Acute respiratory failure: Code(s): J96.00 - Acute respiratory failure, unspecified whether with hypoxia or hypercapnia Status: Acute Assessment and Plan: Acute respiratory failure likely related to the arrest, severe COPD, possible pneumonia, congestive heart failure -currently on CMV mode of ventilation, peep of 8, 40% FiO2. Will wean FiO2 -chest x-ray reviewed -patient failed his weaning trial yesterday due to increase in his heart rate blood pressure and work of breathing of his ABG and RSBI of acceptable -I will trial patient on Precedex infusion to rule out anxiety component -patient does have COPD is on BiPAP prior to intubation and may need BiPAP post extubation -continue bronchodilators, Pulmicort -sedated with fentanyl,Versed infusion, maintain RASS of 0 to -2 (2) Cardiac arrest: Code(s): I46.9 - Cardiac arrest, cause unspecified Status: Acute Assessment and Plan: Cardiac arrest most likely related to respiratory event as his BiPAP was pulled apart and patient went into bradycardic and pulseless arrest -cardiology following the patient -patient was recently also started on sotalol which has been discontinued. Only sinus bradycardia -echocardiogram 05/10/2021 showed an EF of 65-70%. Grade 2 diastolic dysfunction, no aortic valve stenosis. -mild elevation in the troponins which are flat -patient with known coronary artery disease status post CABG and had cardiac catheterization done showed patent grafts and had stenting of his left subclavian artery stenosis. (3) TRACY (acute kidney injury): Code(s): N17.9 - Acute kidney failure, unspecified Status: Acute Assessment and Plan: Acute kidney injury with creatinine of 2.6 on admission -creatinine 1.5 today -continue Lasix for pulmonary edema -continue to monitor urine output, renal function electrolytes (4) COPD (chronic obstructive pulmonary disease) with emphysema: Qualifiers: Emphysema type: unspecified Qualified Code(s): J43.9 - Emphysema, unspecified Code(s): J43.9 - Emphysema, unspecified Status: Acute Assessment and Plan: History of COPD with emphysema, continue bronchodilators and Pulmicort Continue daily Solu-Medrol (5) Rhabdomyolysis: Code(s): M62.82 - Rhabdomyolysis Status: Acute Assessment and Plan: CK levels have normalized (6) Anemia: Qualifiers: Anemia type: other cause Other causes of anemia: chronic disease, other Qualified Code(s): D63.8 - Anemia in other chronic diseases classified elsewhere Code(s): D64.9 - Anemia, unspecified Status: Acute Assessment and Plan: Patient presented with anemia, he has been on Xarelto, with multiple falls. Multiple bruising -appreciate GI evaluation and recommendations. Patient does have heme-positive stools on Xarelto and aspirin -anemia is likely multifactorial with possible chronic kidney disease, anemia of chronic disease, GI loss. No evidence of active GI bleed Stated-continue PPI -GI also recommended iron and Epogen. No endoscopic intervention at this time as he is a poor candidate with significant cardiac and pulmonary comorbidities (7) DVT prophylaxis: Code(s): Z29.9 - Encounter for prophylactic measures, unspecified Status: Acute Assessment and Plan: Continue Xarelto (8) Leucocytosis: Qualifiers: Leukocytosis type: unspecified Qualified Code(s): D72.829 - Elevated white blood cell count, unspecified Code(s): D72.829 - Elevated white blood cell count, unspecified Status: Acute Assessment and Plan: Patient is also on steroids. He he did had low-grade fever and chest x-ray does show infiltrate although it could be pulmonary edema Sputum cultures growing Gram-positive bacilli 1/2 blood cultures growing Gram-positive cocci Start empiric vancomycin and cefepime WBC is coming down He was a
[2021-05-17 11:49] LABS: Glucose Point of Care 332 mg/dl (65-105)
[2021-05-17] MEDS: dexmedeTOMIDine 400 MCG/100 ML 400 MCG/100 ML BAG 17.5 MCG IV CONT ×2 (14:30→19:59)
--- NOTE | 2021-05-17 14:30 | PCFNICU ---
ICU Rounding Note: Pt current nutrition is Vital AF 1.2 at 70 ml/hr over 22 hour Last recorded weight is 140 kg. Bowel Motility:+BM reported 05/15 Labs Reviewed:Hgb 8.0, Hct 26.4, Na 151,K 3.3,BUN 57, GFR 46,Glu 324, Alb 3.1,Mg 3.1,Cr 1.5 Meds Noted: Precedex, Vit B12, Lipitor, Fentanyl, NovoLog, Lantus, Atrovent, Versed, Keppra, Protonix, Solu Medrol Skin: WNL Additional Notes: Spoke with nursing today. Patient is tolerating tube feedings of Vital AF 1.2 at 70 ml/hr. Free water flush increased from 30 to 100 ml q 4hours, Na 151 today. Breathing Trial today. Agree with diet orders. Following daily in ICU rounds. Will monitor every Friday and Friday..
--- NOTE | 2021-05-17 15:58 | PM.IMPN ---
Progress Note: A&P Assessment and Plan (1) Acute respiratory failure: Code(s): J96.00 - Acute respiratory failure, unspecified whether with hypoxia or hypercapnia Status: Acute Assessment and Plan: Patient developed cardiac arrest requiring intubation. He did not tolerate breathing trial again today. ABG 7.41/56/72 on MV. CXR reviewed showing persistent airspace opacities. Continue to wean vent as tolerated. Appreciate mortar carrier input. (2) Cardiac arrest: Code(s): I46.9 - Cardiac arrest, cause unspecified Status: Acute Assessment and Plan: Patient on the evening of 05/12 called out and was found the BiPAP disconnected. His HR was in the 30's. Staff assessment showing no pulse so CPR started. Epi given x 3 and bicarb x1 with high quality CPR with return of ROSC. He was down for 8 minutes. Patient intubated. QT was prolonged. Troponin noted but felt related to the Code. No known seizure-like activity. Patient remains on Keppra post-code. CT brain showing no acute findings. Patient following commands. Suspect related to respiratory failure from the BiPAP coming apart. (3) Syncopal episodes: Qualifiers: Syncope type: unspecified Qualified Code(s): R55 - Syncope and collapse Code(s): R55 - Syncope and collapse Status: Acute Assessment and Plan: Multiple syncopal episodes prior to admission with head trauma. EKG with atrial fibrillation with RVR. COVID test was negative. He does have TRACY to suggest dehydration so consider orthostatic HoTN (but not seen in ED although not sure if he received IV fluids prior). Also with AFib/RVR which also may be contributing to his syncopal episodes. He has converted to NSR. (4) Leucocytosis: Qualifiers: Leukocytosis type: unspecified Qualified Code(s): D72.829 - Elevated white blood cell count, unspecified Code(s): D72.829 - Elevated white blood cell count, unspecified Status: Acute Assessment and Plan: WBC peaked at 19K but 14K now. CXR showing right lower lung zone and left mid and lower lung zones with worsening on the left; can not exclude PNA. Low grade fevers the other day. Patient re-cultured. BC (1of2) growing gram positive cocci in clusters. Sputum Cx pending. Cefepime and Vanco started. Follow up on results to se if bacteremia is real. (5) Hyperglycemia: Code(s): R73.9 - Hyperglycemia, unspecified Status: Acute Assessment and Plan: A1c 7.5. The patient's blood glucose was reviewed on 2/3 Glucose remains poorly controlled possibly related to the steroids. Not known to have DM but had elevated A1c. Continue AccuCheks covering with sliding scale. Hypoglycemia protocol available as needed. Continue Lantus. Adjust medications as needed (6) TRACY (acute kidney injury): Code(s): N17.9 - Acute kidney failure, unspecified Status: Acute Assessment and Plan: Baseline Cr 0.9-1.2. Cr 2.1 on admission. He was on Lasix and Losartan on admission. Renal US normal. Cr improved to 1.2 before worsening after the Code Blue. Cr trending down again and at 1.5 today. Continue to monitor. (7) Atrial fibrillation with rapid ventricular response: Code(s): I48.91 - Unspecified atrial fibrillation Status: Resolved Assessment and Plan: EKG on admission showing AFib. He was on Xarelto. Echo showing EF 65-70% with Grade II diastolic dysfunction. He was started on Amio drip to control rate but may have had a reaction to this in the past so Cardiology changed him to Sotalol but this was stopped due to the prolonged QT. Metoprolol has since been added back. He is still intermittently in/out of AFib. Appreciate Cardiology input. (8) Rhabdomyolysis: Code(s): M62.82 - Rhabdomyolysis Status: Acute Assessment and Plan: TCK 1172. Suspect mild rhabdomyolysis. Related to syncope/falls? Medications? Renal function as above. LFTs okay. TCK tomy
[2021-05-17] MEDS: RIVAROXABAN 20 MG TABLET PO (16:24)
[2021-05-17 16:48] LABS: Glucose Point of Care > 500 mg/dl (65-105)
[2021-05-17 20:19] LABS: Glucose Point of Care 410 mg/dl (65-105)
[2021-05-17] MEDS: INSULIN ASPART (*BKC) 100 UNITS/ML 8 UNITS SUB-Q (20:38)
[2021-05-17 23:32] LABS: Glucose Point of Care 351 mg/dl (65-105)
[2021-05-18] VITALS (36 sets, daily range): BP systolic 96–144; BP diastolic 45–71; PULSE 60–141; RESP 18–28; TEMP 36.6–37.8; O2SAT 90–99
[2021-05-18] MEDS: IPRATROPIUM BR 0.02% INH SOLN 0.5 MG/2.5 ML VIAL INHALATION ×4 (02:30→20:59)
[2021-05-18] MEDS: dexmedeTOMIDine 400 MCG/100 ML 400 MCG/100 ML BAG 17.5 MCG IV CONT (02:39)
[2021-05-18] MEDS: INSULIN ASPART (*BKC) 100 UNITS/ML SUB-Q ×5 (03:30→21:11)
[2021-05-18 03:46] LABS: Glucose Point of Care 264 mg/dl (65-105)
[2021-05-18 05:05] LABS: Alveolar/Arterial O2 Gradient 150.9 mmHg; Base Excess ABG 7.7 mEq/l (+/-2.0); Carboxyhemoglobin 0.3 % THb (0-2.0); Fractional Inspired Oxygen 40 %; HCO3 ABG 32.2 mEq/l (22.0-26.0); Methemoglobin ABG 0.3 %THb (0-1.5); Oxygen Content ABG 12.3 %vol (16.0-22.0); Oxygen Saturation ABG 96.6 % (95.0-100.0); Oxyhemoglobin 94.2 % THb (90.0-100.0); PCO2 ABG 45.5 mmHg (35.0-45.0); PO2 FiO2 Ratio Arterial Blood 2.05 %; Reduced Hemoglobin 5.2 %THb (0-5.0); Total Hemoglobin 9.2 g/dL (12.0-18.0); pH ABG 7.468 (7.350-7.450)
[2021-05-18 05:08] LABS: Device VENTILATOR; Modified Allen's Test Pass; Site Drawn RIGHT RADIAL
[2021-05-18 05:09] LABS: Arterial Blood Gas PEEP 5 cmH2O; Arterial Blood Gas Tidal Volume 450 ml; Arterial Blood Gas Vent Mode CMV; Arterial Blood Gas Ventilator rate 24 /MIN
[2021-05-18] MEDS: CENTRAL LINE FLUSH 10 ML IV PUSH ×4 (05:09→21:06)
[2021-05-18 05:29] LABS: Hematocrit 27.4 % (42.0-52.0); Hemoglobin 8.1 g/dL (14.0-18.0); Mean Corpuscular HGB Conc 29.6 g/dl (32-36); Mean Corpuscular Volume 94.8 fl (80-100); Mean Platelet Volume 10.1 fl (7.4-10.4); Platelet Count Result 339 k/mm3 (150-375); Red Blood Count 2.89 M/mm3 (4.6-6.20); Red Cell Distribution Width 16.9 % (11.5-14.5); White Blood Count 10.8 K/mm3 (4.5-10.0)
[2021-05-18 05:46] LABS: Alanine Aminotransferase 32 U/L (4-50); Albumin Level 3.1 g/dL (3.5-5.1); Alkaline Phosphatase 97 U/L (38-126); Anion Gap 5 mmol/L (8-16); Aspartate Amino Transferase 31 U/L (17-59); Bilirubin,Total 0.6 mg/dL (0.2-1.3); Blood Urea Nitrogen 55 mg/dL (9-20); Calcium 8.1 mg/dL (8.4-10.2); Carbon Dioxide 36 mmol/L (22-30); Chloride 116 mmol/L (98-107); Estimated CRCL calculation 64 ml/min; Estimated Glomerular Filt Rate 55; Glucose 294 mg/dL (65-110); Potassium 3.4 mmol/L (3.4-5.0); Sodium 157 mmol/L (137-145)
[2021-05-18] MEDS: METOPROLOL TARTRATE INJ 5 MG/5 ML VIAL IV PUSH (06:04)
--- NOTE | 2021-05-18 07:25 | PM.PNCARD ---
Progress Note: A&P Additional Plan 71-year-old man with a paroxysmal atrial fib/flutter in the setting of coronary artery disease. Recent echocardiogram demonstrates very good left ventricular systolic function. I believe he responded well to sotalol last week when I started and was back in sinus rhythm but others stopped the drug because of QT prolongation. The arrest that he suffered last weekend I think is clearly an event where he came off of BiPAP in [facility] I do not believe his sotalol had anything to do with the event. Nonetheless there is concern about sotalol QT prolongation. I am going to try adding some flecainide therefore into the his regimen since he is in flutter with variable response this morning. Given his underlying lung disease this may also be better tolerated than sotalol. John Ocampo MD [facility] Subjective Date/time seen: Date of service: 05/18/21 07:25 Interval history: Follow-up visit in this 71-year-old man with: Coronary artery disease coronary bypass grafting within the last couple of years presenting to the hospital with syncopal episodes of unclear etiology. Patient has a history of paroxysmal AFib/atrial flutter. Events of last night reviewed, discussed with primary service and Critical Care. As reported patient had somehow become from his BiPAP machine resulting in respiratory failure with resulting bradycardia and pulseless arrest. Telemetry revealed SB and transient low junctional and/or idioventricular rhythm then sinus mechanism. Patient was noted to be pulseless and very prompt ACLS protocol was administered including 3 rounds of epinephrine and CPR as documented with ROSC. He was bagged then intubated successfully and transferred to the ICU. His sotalol was discontinued and his last dose was morning of 05/12/2021. No evidence of complete heart block or torsades on telemetry. Patient currently remains in sinus bradycardia, intubated on mechanical ventilatory support in the ICU. He is on Levophed but BP has been quite stable. Date of service 05/14/2021: Patient remains intubated mechanical ventilator support in the ICU. Sinus rhythm heart rate in the 50s. Events of the weekend reviewed. Currently not on any antiarrhythmic therapy. QT interval did prolonged on sotalol which of course is to be expected. Events of Friday that required re-intubation for review. This was primarily a respiratory event, not in arrhythmia. None the less he is currently in sinus bradycardia. There are mentions in the chart that the patient was on Multaq before coming in the hospital. For the moment he is not on any antiarrhythmic therapy. Date of service 05/16/2021: Remains intubated and sedated but is spontaneously moving lower extremities during my exam. On the monitor he is in sinus rhythm in the 60's. Date of service 05/18/2021: Patient still is intubated on the ventilator but is awake and alert. About 4:00 a.m. this morning he went into atrial flutter with variable ventricular response. Currently in atrial flutter heart rate is about 90-100. Exam Narrative: Obese male lying supine intubated, alert and comfortable on mechanical ventilatory support Const: General: cooperative, comfortable, no acute distress, alert and awake Nutritional Appearance: well nourished Orientation/consciousness: patient oriented x3 Other: Morbidly obese man in no distress in supine position with BiPAP in place HENMT: Head: normal to inspection, normocephalic and atraumatic Ears: hearing grossly normal bilaterally General nose exam: Normal external nose present and Normal nares present Face and sinus: normal facial exam and no erythema Mouth: Yes moist mucous membranes, No drooling and No restricted motion Throat: uvula midline Eyes: General: appearance normal, both eyes and all related structures Alignment and Position: position normal Conjunctivae: conjunctivae normal Sclera: sclerae normal Neck: Neck: no
[2021-05-18 07:42] LABS: Glucose Point of Care 323 mg/dl (65-105)
[2021-05-18] MEDS: dexmedeTOMIDine 400 MCG/100 ML 400 MCG/100 ML BAG 21 MCG IV CONT (08:52)
[2021-05-18] MEDS: FLECAINIDE ACETATE 100 MG TABLET PO ×2 (08:54→21:10)
[2021-05-18] MEDS: METOPROLOL TARTRATE 25 MG TABLET FEED TUBE ×2 (08:56→21:09)
[2021-05-18] MEDS: methylPREDNISolone SOD SUCC 125 MG VIAL 60 MG IV PUSH (08:56)
[2021-05-18] MEDS: FERROUS SULFATE 324 MG TABLET PO ×2 (08:56→17:45)
[2021-05-18] MEDS: PANTOPRAZOLE SODIUM IV 40 MG VIAL IV PUSH ×2 (08:57→21:08)
[2021-05-18] MEDS: INSULIN GLARGINE (*BKC) 100 UNITS/ML 15 UNITS SUB-Q ×2 (08:57→21:10)
[2021-05-18] MEDS: levETIRAcetam ORAL SOL 500 MG/5 ML UDC FEED TUBE ×2 (08:57→21:09)
[2021-05-18] MEDS: FUROSEMIDE INJ 40 MG/4 ML VIAL IV PUSH (08:58)
[2021-05-18] MEDS: MINERAL OIL/WHITE PETROLATUM OINTMENT 1 APPLIC EACH EYE (08:58)
[2021-05-18] MEDS: CYANOCOBALAMIN 1,000 MCG TABLET 1000 MCG PO (08:59)
[2021-05-18] MEDS: ASPIRIN 81 MG ENTERIC TABLET PO (08:59)
[2021-05-18] MEDS: ATORVASTATIN 40 MG TABLET FEED TUBE (08:59)
[2021-05-18] MEDS: BUDESONIDE RESPULE NEB 0.5 MG/2 ML AMP INHALATION ×2 (09:05→23:07)
[2021-05-18 10:09] LABS: Alveolar/Arterial O2 Gradient 162.7 mmHg; Arterial Blood Gas Vent Mode SPONTANEOUS; Base Excess ABG 6.2 mEq/l (+/-2.0); Device VENTILATOR; Fractional Inspired Oxygen 40 %; HCO3 ABG 31.4 mEq/l (22.0-26.0); Oxygen Content ABG 11.1 %vol (16.0-22.0); Oxygen Saturation ABG 93.2 % (95.0-100.0); Oxyhemoglobin 89.7 % THb (90.0-100.0); PCO2 ABG 49.2 mmHg (35.0-45.0); PO2 ABG 65.9 mmHg (80.0-100.0); PO2 FiO2 Ratio Arterial Blood 1.65 %; Site Drawn RIGHT BRACHIAL; Total Hemoglobin 8.7 g/dL (12.0-18.0); pH ABG 7.423 (7.350-7.450)
[2021-05-18 10:10] LABS: Arterial Blood Gas PEEP 5 cmH2O; Arterial Blood Gas Pressure Support 10 cmH2O
--- NOTE | 2021-05-18 11:00 | WPDINTPN ---
Progress Note: A&P Assessment and Plan (1) Acute respiratory failure: Code(s): J96.00 - Acute respiratory failure, unspecified whether with hypoxia or hypercapnia Status: Acute Assessment and Plan: Acute respiratory failure likely related to the arrest, severe COPD, possible pneumonia, congestive heart failure -currently on CMV mode of ventilation, peep of 5, 40% FiO2. Will wean FiO2 -chest x-ray reviewed - 10/5 PSV SBT done for more than 1 hour. RSBI, ABGI and Vitals acceptable. Pt awake and following commands. Will extubate and monitor. NPO for now. - he will likely need BiPAP post intubation p.r.n. and at night -I I have him on Precedex infusion to rule out anxiety component and will be continued for now - he does appear to have significant COPD -continue bronchodilators, Pulmicort (2) Cardiac arrest: Code(s): I46.9 - Cardiac arrest, cause unspecified Status: Acute Assessment and Plan: Cardiac arrest most likely related to respiratory event as his BiPAP was pulled apart and patient went into bradycardic and pulseless arrest -cardiology following the patient -patient was recently also started on sotalol which has been discontinued. Only sinus bradycardia -echocardiogram 05/10/2021 showed an EF of 65-70%. Grade 2 diastolic dysfunction, no aortic valve stenosis. -mild elevation in the troponins which are flat -patient with known coronary artery disease status post CABG and had cardiac catheterization done showed patent grafts and had stenting of his left subclavian artery stenosis. (3) TRACY (acute kidney injury): Code(s): N17.9 - Acute kidney failure, unspecified Status: Acute Assessment and Plan: Acute kidney injury with creatinine of 2.6 on admission -creatinine 1.5 today -continue Lasix for pulmonary edema -continue to monitor urine output, renal function electrolytes (4) COPD (chronic obstructive pulmonary disease) with emphysema: Qualifiers: Emphysema type: unspecified Qualified Code(s): J43.9 - Emphysema, unspecified Code(s): J43.9 - Emphysema, unspecified Status: Acute Assessment and Plan: History of COPD with emphysema, continue bronchodilators and Pulmicort Continue daily Solu-Medrol (5) Rhabdomyolysis: Code(s): M62.82 - Rhabdomyolysis Status: Acute Assessment and Plan: CK levels have normalized (6) Anemia: Qualifiers: Anemia type: other cause Other causes of anemia: chronic disease, other Qualified Code(s): D63.8 - Anemia in other chronic diseases classified elsewhere Code(s): D64.9 - Anemia, unspecified Status: Acute Assessment and Plan: Patient presented with anemia, he has been on Xarelto, with multiple falls. Multiple bruising -appreciate GI evaluation and recommendations. Patient does have heme-positive stools on Xarelto and aspirin -anemia is likely multifactorial with possible chronic kidney disease, anemia of chronic disease, GI loss. No evidence of active GI bleed Stated-continue PPI -GI also recommended iron and Epogen. No endoscopic intervention at this time as he is a poor candidate with significant cardiac and pulmonary comorbidities (7) DVT prophylaxis: Code(s): Z29.9 - Encounter for prophylactic measures, unspecified Status: Acute Assessment and Plan: Continue Xarelto (8) Leucocytosis: Qualifiers: Leukocytosis type: unspecified Qualified Code(s): D72.829 - Elevated white blood cell count, unspecified Code(s): D72.829 - Elevated white blood cell count, unspecified Status: Acute Assessment and Plan: Patient is also on steroids. He he did had low-grade fever and chest x-ray does show infiltrate although it could be pulmonary edema Sputum cultures growing stenotrophomonas - susceptibilities are pending 1/2 blood cultures growing staph aureus - susceptibilities are pending continue empiric vancomycin and cefe
[2021-05-18 12:45] LABS: Glucose Point of Care 321 mg/dl (65-105)
--- NOTE | 2021-05-18 13:14 | PCNFU ---
Nutrition Follow-Up Complete: Inadequate Oral Intake as related to mechanical ventilation as evidenced by NPO. goal: Meet estimated nutritional needs Patient is progressing towards goal. we will continue current goal. Pt current nutrition is Vital AF 1.2 at 70 ml/hr over 22 hours. Last recorded weight is 121.5 kg. Bowel Motility:+BM reported 05/15 Labs Reviewed: Mg 3.0, Glu 294, Na 157, BUN 55, Alb 3.1,Hct 27.4,Hgb 8.1 Meds Noted: Precedex, Protonix, Keppra, Lopressor, Lantus, Lipitor, Vit B12, Lasix, Vancomycin, Ferrous Sulfate. Skin: WNL Additional Notes: Patient remains on tube feedings of Vital AF 1.2 at 70 ml/hr over 22 hours. Current tube feeding is providing 1848 kcals/116 gm protein/1249 ml water. Free water flush increased yesterday to 100 ml q 4 hours from 30 ml q 4 hours, Na 157 today. Agree with diet orders. Monitoring: Will monitor in ICU rounds and reassessing every Friday and Friday.
[2021-05-18] MEDS: KCL 20 MEQ/D5W 1,000 ML 1,000 ML 100 ML IV CONT (13:59)
[2021-05-18] MEDS: INSULIN GLARGINE (*BKC) 100 UNITS/ML 20 UNITS SUB-Q (14:04)
--- NOTE | 2021-05-18 14:36 | PM.IMPN ---
Progress Note: A&P Assessment and Plan (1) Acute respiratory failure: Code(s): J96.00 - Acute respiratory failure, unspecified whether with hypoxia or hypercapnia Status: Acute Assessment and Plan: Patient developed cardiac arrest requiring intubation. He did not tolerate breathing trial again today. ABG 7.41/56/72 on MV. CXR reviewed showing persistent airspace opacities. Able to wean vent off. Follow closely. Appreciate glass forming engineer input. (2) Cardiac arrest: Code(s): I46.9 - Cardiac arrest, cause unspecified Status: Acute Assessment and Plan: Patient on the evening of 05/12 called out and was found the BiPAP disconnected. His HR was in the 30's. Staff assessment showing no pulse so CPR started. Epi given x 3 and bicarb x1 with high quality CPR with return of ROSC. He was down for 8 minutes. Patient intubated. QT was prolonged. Troponin noted but felt related to the Code. No known seizure-like activity. Patient remains on Keppra post-code. CT brain showing no acute findings. Suspect related to respiratory failure from the BiPAP coming apart. (3) Syncopal episodes: Qualifiers: Syncope type: unspecified Qualified Code(s): R55 - Syncope and collapse Code(s): R55 - Syncope and collapse Status: Acute Assessment and Plan: Multiple syncopal episodes prior to admission with head trauma. EKG with atrial fibrillation with RVR. COVID test was negative. He does have TRACY to suggest dehydration so consider orthostatic HoTN (but not seen in ED although not sure if he received IV fluids prior). Also with AFib/RVR which also may be contributing to his syncopal episodes. PT/OT when he is well enough (4) Leucocytosis: Qualifiers: Leukocytosis type: unspecified Qualified Code(s): D72.829 - Elevated white blood cell count, unspecified Code(s): D72.829 - Elevated white blood cell count, unspecified Status: Acute Assessment and Plan: WBC peaked at 19K but 11K now. CXR showing airspace opacities in the lower lung zones with mild worsening on the right and improvement on the left. Last fevers were on 05/15/21. Patient re-cultured. BC (1of2) growing Staphylococcus aureus. Sputum Cx growing stenotrophomonas. Patient remains on Cefepime and Vanco. Repeat BCx tomorrow. (5) Hyperglycemia: Code(s): R73.9 - Hyperglycemia, unspecified Status: Acute Assessment and Plan: A1c 7.5. The patient's blood glucose was reviewed on 05/18 Not known to have DM but had elevated A1c. Glucose remains poorly controlled possibly related to the steroids. Continue AccuCheks covering with sliding scale. Hypoglycemia protocol available as needed. Continue Lantus. Adjust medications as needed (6) TRACY (acute kidney injury): Code(s): N17.9 - Acute kidney failure, unspecified Status: Acute Assessment and Plan: Baseline Cr 0.9-1.2. Cr 2.1 on admission. He was on Lasix and Losartan on admission. Renal US normal. Cr improved to 1.2 before worsening after the Code Blue. Cr trending down again and at 1.3 today. Continue to monitor. (7) Atrial fibrillation with rapid ventricular response: Code(s): I48.91 - Unspecified atrial fibrillation Status: Resolved Assessment and Plan: EKG on admission showing AFib. He was on Xarelto. Echo showing EF 65-70% with Grade II diastolic dysfunction. He was started on Amio drip to control rate but may have had a reaction to this in the past so Cardiology changed him to Sotalol but this was stopped due to the prolonged QT. Metoprolol has since been added back. He is still intermittently in/out of AFib so Flecainide added today. Appreciate Cardiology input. (8) Rhabdomyolysis: Code(s): M62.82 - Rhabdomyolysis Status: Acute Assessment and Plan: TCK 1172. Suspect mild rhabdomyolysis. Related to syncope/falls? Medications? Renal function as above. LFTs okay. TCK normal now. Lipit
[2021-05-18 17:07] LABS: Glucose Point of Care 345 mg/dl (65-105)
[2021-05-18] MEDS: RIVAROXABAN 20 MG TABLET PO (17:45)
[2021-05-18 21:16] LABS: Anion Gap 2 mmol/L (8-16); Blood Urea Nitrogen 52 mg/dL (9-20); Carbon Dioxide 37 mmol/L (22-30); Chloride 114 mmol/L (98-107); Estimated CRCL calculation 69 ml/min; Estimated Glomerular Filt Rate 60; Glucose 292 mg/dL (65-110); Potassium 3.6 mmol/L (3.4-5.0); Sodium 153 mmol/L (137-145)
[2021-05-18 21:19] LABS: Glucose Point of Care 272 mg/dl (65-105)
[2021-05-19] VITALS (29 sets, daily range): BP systolic 106–161; BP diastolic 58–87; PULSE 94–144; RESP 17–30; TEMP 36.3–37.2; O2SAT 92–98
[2021-05-19 00:03] LABS: Glucose Point of Care 229 mg/dl (65-105)
[2021-05-19] MEDS: KCL 20 MEQ/D5W 1,000 ML 1,000 ML 100 ML IV CONT (00:03)
[2021-05-19] MEDS: INSULIN ASPART (*BKC) 100 UNITS/ML SUB-Q ×5 (00:06→23:54)
[2021-05-19] MEDS: METOPROLOL TARTRATE INJ 5 MG/5 ML VIAL IV PUSH ×2 (01:21→05:44)
[2021-05-19] MEDS: IPRATROPIUM BR 0.02% INH SOLN 0.5 MG/2.5 ML VIAL INHALATION ×4 (03:13→21:31)
[2021-05-19] MEDS: CENTRAL LINE FLUSH 10 ML IV PUSH ×4 (04:21→21:08)
[2021-05-19 04:29] LABS: Glucose Point of Care 192 mg/dl (65-105)
[2021-05-19 04:58] LABS: Hematocrit 28.7 % (42.0-52.0); Hemoglobin 8.6 g/dL (14.0-18.0); Mean Corpuscular Hemoglobin 27.9 pg (26-34); Mean Corpuscular Volume 93.2 fl (80-100); Mean Platelet Volume 10.9 fl (7.4-10.4); Platelet Count Result 455 k/mm3 (150-375); Red Blood Count 3.08 M/mm3 (4.6-6.20); White Blood Count 15.2 K/mm3 (4.5-10.0)
[2021-05-19 05:44] LABS: Alveolar/Arterial O2 Gradient 166.4 mmHg; Base Excess ABG 3.2 mEq/l (+/-2.0); Carboxyhemoglobin 0.4 % THb (0-2.0); Fractional Inspired Oxygen 40 %; HCO3 ABG 27.5 mEq/l (22.0-26.0); Oxyhemoglobin 92.7 % THb (90.0-100.0); PCO2 ABG 41.1 mmHg (35.0-45.0); PO2 ABG 71.5 mmHg (80.0-100.0); PO2 FiO2 Ratio Arterial Blood 1.79 %; Reduced Hemoglobin 6.9 %THb (0-5.0); pH ABG 7.444 (7.350-7.450)
[2021-05-19 05:45] LABS: Device NASAL CANNULA; Modified Allen's Test Pass; Site Drawn RIGHT RADIAL
[2021-05-19 06:12] LABS: Alanine Aminotransferase 33 U/L (4-50); Alkaline Phosphatase 85 U/L (38-126); Anion Gap 4 mmol/L (8-16); Aspartate Amino Transferase 31 U/L (17-59); Bilirubin,Total 0.7 mg/dL (0.2-1.3); Blood Urea Nitrogen 40 mg/dL (9-20); Calcium 7.8 mg/dL (8.4-10.2); Carbon Dioxide 34 mmol/L (22-30); Chloride 113 mmol/L (98-107); Estimated CRCL calculation 68 ml/min; Estimated Glomerular Filt Rate 60; Glucose 213 mg/dL (65-110); Magnesium 2.9 mg/dL (1.6-2.3); Potassium 3.4 mmol/L (3.4-5.0); Sodium 151 mmol/L (137-145)
[2021-05-19 08:12] LABS: Glucose Point of Care 166 mg/dl (65-105)
[2021-05-19] MEDS: PANTOPRAZOLE SODIUM IV 40 MG VIAL IV PUSH ×2 (08:27→21:09)
[2021-05-19] MEDS: levETIRAcetam ORAL SOL 500 MG/5 ML UDC FEED TUBE ×2 (08:28→21:09)
[2021-05-19] MEDS: INSULIN GLARGINE (*BKC) 100 UNITS/ML 15 UNITS SUB-Q (08:28)
[2021-05-19] MEDS: methylPREDNISolone SOD SUCC 125 MG VIAL 60 MG IV PUSH (08:28)
[2021-05-19] MEDS: FLECAINIDE ACETATE 100 MG TABLET PO (08:29)
[2021-05-19] MEDS: FUROSEMIDE INJ 40 MG/4 ML VIAL IV PUSH (08:29)
[2021-05-19] MEDS: ASPIRIN 81 MG ENTERIC TABLET PO (08:29)
[2021-05-19] MEDS: ATORVASTATIN 40 MG TABLET FEED TUBE (08:29)
[2021-05-19] MEDS: CYANOCOBALAMIN 1,000 MCG TABLET 1000 MCG PO (08:29)
[2021-05-19] MEDS: FERROUS SULFATE 324 MG TABLET PO ×2 (08:30→16:19)
[2021-05-19] MEDS: FLUTICASONE/SALMETEROL 115-21 MCG INHALER 1 PUFF 2 PUFF INHALATION ×2 (09:02→21:31)
[2021-05-19] MEDS: BUDESONIDE RESPULE NEB 0.5 MG/2 ML AMP INHALATION ×2 (09:03→21:31)
--- NOTE | 2021-05-19 09:06 | PM.IMPN ---
Progress Note: A&P Assessment and Plan (1) Acute respiratory failure: Code(s): J96.00 - Acute respiratory failure, unspecified whether with hypoxia or hypercapnia Status: Acute Assessment and Plan: Acute respiratory failure likely related to the arrest, severe COPD, possible pneumonia, congestive heart failure / - 01/16 PSV SBT done for more than 1 hour. RSBI, ABGI and Vitals acceptable. Pt awake and following commands. patient was extubated. He later in the evening went on BiPAP for increased work of breathing. He wore BiPAP through the night. This morning he is doing well and is on nasal cannula and he states he is feeling better. - Continue nasal cannula and BiPAP p.r.n. and at night. Does have significant COPD at baseline -continue bronchodilators, Pulmicort (2) Cardiac arrest: Code(s): I46.9 - Cardiac arrest, cause unspecified Status: Acute Assessment and Plan: Cardiac arrest most likely related to respiratory event as his BiPAP was pulled apart and patient went into bradycardic and pulseless arrest -cardiology following the patient -patient was recently also started on sotalol which has been discontinued. Only sinus bradycardia -echocardiogram 05/10/2021 showed an EF of 65-70%. Grade 2 diastolic dysfunction, no aortic valve stenosis. -mild elevation in the troponins which are flat -patient with known coronary artery disease status post CABG and had cardiac catheterization done showed patent grafts and had stenting of his left subclavian artery stenosis. (3) TRACY (acute kidney injury): Code(s): N17.9 - Acute kidney failure, unspecified Status: Acute Assessment and Plan: Acute kidney injury with creatinine of 2.6 on admission -creatinine has came down to normal range -continue Lasix for pulmonary edema -continue to monitor urine output, renal function electrolytes (4) COPD (chronic obstructive pulmonary disease) with emphysema: Qualifiers: Emphysema type: unspecified Qualified Code(s): J43.9 - Emphysema, unspecified Code(s): J43.9 - Emphysema, unspecified Status: Acute Assessment and Plan: History of COPD with emphysema, continue bronchodilators and Pulmicort Continue daily Solu-Medrol (5) Rhabdomyolysis: Code(s): M62.82 - Rhabdomyolysis Status: Acute Assessment and Plan: CK levels have normalized (6) Anemia: Qualifiers: Anemia type: other cause Other causes of anemia: chronic disease, other Qualified Code(s): D63.8 - Anemia in other chronic diseases classified elsewhere Code(s): D64.9 - Anemia, unspecified Status: Acute Assessment and Plan: Patient presented with anemia, he has been on Xarelto, with multiple falls. Multiple bruising -appreciate GI evaluation and recommendations. Patient does have heme-positive stools on Xarelto and aspirin -anemia is likely multifactorial with possible chronic kidney disease, anemia of chronic disease, GI loss. No evidence of active GI bleed Stated-continue PPI -GI also recommended iron and Epogen. No endoscopic intervention at this time as he is a poor candidate with significant cardiac and pulmonary comorbidities Continue PO iron (7) DVT prophylaxis: Code(s): Z29.9 - Encounter for prophylactic measures, unspecified Status: Acute Assessment and Plan: Continue Xarelto (8) Leucocytosis: Qualifiers: Leukocytosis type: unspecified Qualified Code(s): D72.829 - Elevated white blood cell count, unspecified Code(s): D72.829 - Elevated white blood cell count, unspecified Status: Acute Assessment and Plan: Patient is also on steroids. He he did had low-grade fever and chest x-ray does show infiltrate although it could be pulmonary edema Sputum cultures growing stenotrophomonas - susceptibilities are pending 1/2 blood cultures growing MSSA continue empiric vancomycin and cefepime WBC decreasing
--- NOTE | 2021-05-19 09:28 | WPDINTPN ---
Progress Note: A&P Assessment and Plan (1) Acute respiratory failure: Code(s): J96.00 - Acute respiratory failure, unspecified whether with hypoxia or hypercapnia Status: Acute Assessment and Plan: Acute respiratory failure likely related to the arrest, severe COPD, possible pneumonia, congestive heart failure 2/ - 01/16 PSV SBT done for more than 1 hour. RSBI, ABGI and Vitals acceptable. Pt awake and following commands. patient was extubated. He later in the evening went on BiPAP for increased work of breathing. He wore BiPAP through the night. This morning he is doing well and is on nasal cannula and he states he is feeling better. - Continue nasal cannula and BiPAP p.r.n. and at night. Does have significant COPD at baseline - Precedex has been weaned -continue bronchodilators, Pulmicort (2) Cardiac arrest: Code(s): I46.9 - Cardiac arrest, cause unspecified Status: Acute Assessment and Plan: Cardiac arrest most likely related to respiratory event as his BiPAP was pulled apart and patient went into bradycardic and pulseless arrest -cardiology following the patient -patient was recently also started on sotalol which has been discontinued. Only sinus bradycardia -echocardiogram 05/10/2021 showed an EF of 65-70%. Grade 2 diastolic dysfunction, no aortic valve stenosis. -mild elevation in the troponins which are flat -patient with known coronary artery disease status post CABG and had cardiac catheterization done showed patent grafts and had stenting of his left subclavian artery stenosis. (3) TRACY (acute kidney injury): Code(s): N17.9 - Acute kidney failure, unspecified Status: Acute Assessment and Plan: Acute kidney injury with creatinine of 2.6 on admission -creatinine has came down to normal range -continue Lasix for pulmonary edema -continue to monitor urine output, renal function electrolytes (4) COPD (chronic obstructive pulmonary disease) with emphysema: Qualifiers: Emphysema type: unspecified Qualified Code(s): J43.9 - Emphysema, unspecified Code(s): J43.9 - Emphysema, unspecified Status: Acute Assessment and Plan: History of COPD with emphysema, continue bronchodilators and Pulmicort Continue daily Solu-Medrol (5) Rhabdomyolysis: Code(s): M62.82 - Rhabdomyolysis Status: Acute Assessment and Plan: CK levels have normalized (6) Anemia: Qualifiers: Anemia type: other cause Other causes of anemia: chronic disease, other Qualified Code(s): D63.8 - Anemia in other chronic diseases classified elsewhere Code(s): D64.9 - Anemia, unspecified Status: Acute Assessment and Plan: Patient presented with anemia, he has been on Xarelto, with multiple falls. Multiple bruising -appreciate GI evaluation and recommendations. Patient does have heme-positive stools on Xarelto and aspirin -anemia is likely multifactorial with possible chronic kidney disease, anemia of chronic disease, GI loss. No evidence of active GI bleed Stated-continue PPI -GI also recommended iron and Epogen. No endoscopic intervention at this time as he is a poor candidate with significant cardiac and pulmonary comorbidities (7) DVT prophylaxis: Code(s): Z29.9 - Encounter for prophylactic measures, unspecified Status: Acute Assessment and Plan: Continue Xarelto (8) Leucocytosis: Qualifiers: Leukocytosis type: unspecified Qualified Code(s): D72.829 - Elevated white blood cell count, unspecified Code(s): D72.829 - Elevated white blood cell count, unspecified Status: Acute Assessment and Plan: Patient is also on steroids. He he did had low-grade fever and chest x-ray does show infiltrate although it could be pulmonary edema Sputum cultures growing stenotrophomonas - susceptibilities are pending 1/2 blood cultures growing MSSA continue empiric vancomycin and cefepime WBC is
--- NOTE | 2021-05-19 10:51 | PM.PNCARD ---
Progress Note: A&P Assessment and Plan (1) Atrial fibrillation with rapid ventricular response: Code(s): I48.91 - Unspecified atrial fibrillation Status: Resolved Assessment and Plan: Patient is in atrial fibrillation with RVR with heart rates in 140s. Patient has established CAD with history of CABG, and class 1C antiarrhythmic drugs should be avoided. Discontinue flecainide. Will use IV amiodarone temporarily to control heart rate, along with oral metoprolol. Rate control and anticoagulation is primary goal at this time, not necessarily rhythm control. Continue anticoagulation with rivaroxaban. Plan discussed with ICU physician. (2) Acute respiratory failure: Code(s): J96.00 - Acute respiratory failure, unspecified whether with hypoxia or hypercapnia Status: Acute Assessment and Plan: Extubated now. Further management per Critical Care. Respiratory arrest reportedly secondary to apparent decoupling from BiPAP resulting in severe bradycardia resolved with oxygenation and intubation. Sotalol discontinued. (3) QT prolongation: Code(s): R94.31 - Abnormal electrocardiogram [ECG] [EKG] Status: Acute Assessment and Plan: Had QT prolongation while on sotalol which has been discontinued. Avoid sotalol. (4) CAD (coronary artery disease): Qualifiers: Coronary Disease-Associated Artery/Lesion type: unspecified vessel or lesion type [place] vs. transplanted heart: unspecified whether [place] or transplanted heart Associated angina: unspecified whether angina present Qualified Code(s): I25.10 - Atherosclerotic heart disease of [place] coronary artery without angina pectoris Code(s): I25.10 - Atherosclerotic heart disease of [place] coronary artery without angina pectoris Status: Acute Assessment and Plan: No active ischemic symptoms. Continue low-dose aspirin, statin. Beta-rosita. (5) Syncope: Qualifiers: Syncope type: unspecified Qualified Code(s): R55 - Syncope and collapse Code(s): R55 - Syncope and collapse Status: Acute Assessment and Plan: (6) Anemia: Qualifiers: Anemia type: other cause Other causes of anemia: chronic disease, other Qualified Code(s): D63.8 - Anemia in other chronic diseases classified elsewhere Code(s): D64.9 - Anemia, unspecified Status: Acute Assessment and Plan: Stable, continue to monitor H&H. GI consultation noted. Anemia chronic disease no evidence of active bleed. (7) Rhabdomyolysis: Code(s): M62.82 - Rhabdomyolysis Status: Acute Assessment and Plan: (8) TRACY (acute kidney injury): Code(s): N17.9 - Acute kidney failure, unspecified Status: Acute Assessment and Plan: Stable thus far Continue to follow. Creatinine has improved. Additional Plan John Ocampo MD [facility] Subjective Date/time seen: 05/19/21 10:51 Interval history: Date of service: 05/19/2021 Interval history: Patient is in atrial fibrillation with RVR, heart rates in the 140s. He is lying down down in the bed, alert. Denies chest pain. Exam Narrative: PHYSICAL EXAMINATION: GENERAL: Ill-appearing male MENTAL STATUS: Flat affect EYES: Extraocular movements intact EARS: External ears appear normal, hearing grossly normal NOSE: Normal and patent, no discharge MOUTH: Mucous membranes moist, tongue normal NECK: Supple, no JVD CHEST: Decreased breath sounds HEART: Tachycardia, irregularly irregular ABDOMEN: Soft, nontender NEUROLOGICAL: Alert, speech normal MUSCULOSKELETAL: No major deformity, no amputation EXTREMITIES: Bilateral SCDs in place SKIN: no rash on the exposed area, no cyanosis PSYCHIATRIC: Flat affect Objective Data Vital Signs Vital Signs: Vital Signs - 24 hr 05/18/21 10:52 05/18/21 11:18 05/18/21 12:00 Temperature 37.2 C Pulse Rate 67 64 Respiratory Rate 27 H 25 H Bl
[2021-05-19] MEDS: KCL 20 MEQ/SW 100 ML 100 ML 50 MEQ IVPB (11:56)
[2021-05-19] MEDS: AMIODARONE 150 MG/D5W 100 ML 150 MG/100 ML BAG 600 MG IV CONT (11:59)
[2021-05-19] MEDS: AMIODARONE 360 MG/D5W 200 ML 360 MG/200 ML BAG 33.33 MG IV CONT (11:59)
[2021-05-19] MEDS: POTASSIUM CHLORIDE 20 MEQ PACKET (FOR LIQUID) 40 MEQ PO (12:03)
[2021-05-19] MEDS: METOPROLOL TARTRATE 50 MG TAB PO ×2 (12:03→21:09)
[2021-05-19 12:37] LABS: Glucose Point of Care 312 mg/dl (65-105)
[2021-05-19] MEDS: RIVAROXABAN 20 MG TABLET PO (16:19)
[2021-05-19 16:25] LABS: Glucose Point of Care 377 mg/dl (65-105)
[2021-05-19] MEDS: AMIODARONE 360 MG/D5W 200 ML 360 MG/200 ML BAG 16.67 MG IV CONT (18:09)
[2021-05-19 19:05] LABS: Vancomycin Trough 15.6 ug/mL (10.0-20.0)
[2021-05-19] MEDS: INSULIN GLARGINE (*BKC) 100 UNITS/ML 24 UNITS SUB-Q (21:08)
[2021-05-19 21:20] LABS: Glucose Point of Care 352 mg/dl (65-105)
[2021-05-19] MEDS: ALBUTEROL SULFATE NEB 2.5 MG/0.5 ML INH 5 MG INHALATION (21:31)
[2021-05-20] VITALS (27 sets, daily range): BP systolic 87–138; BP diastolic 45–88; PULSE 78–130; RESP 18–37; TEMP 36.3–37.1; O2SAT 88–97
[2021-05-20 00:08] LABS: Glucose Point of Care 252 mg/dl (65-105)
[2021-05-20] MEDS: rOPINIRole HCL 1 MG TABLET PO ×4 (01:06→17:44)
[2021-05-20] MEDS: IPRATROPIUM BR 0.02% INH SOLN 0.5 MG/2.5 ML VIAL INHALATION ×4 (02:00→21:00)
[2021-05-20 03:25] LABS: Glucose Point of Care 192 mg/dl (65-105)
[2021-05-20] MEDS: AMIODARONE 360 MG/D5W 200 ML 360 MG/200 ML BAG 16.67 MG IV CONT ×2 (05:26→20:35)
[2021-05-20] MEDS: CENTRAL LINE FLUSH 10 ML IV PUSH ×4 (05:27→20:55)
[2021-05-20 05:43] LABS: Hematocrit 27.1 % (42.0-52.0); Hemoglobin 8.2 g/dL (14.0-18.0); Mean Corpuscular HGB Conc 30.3 g/dl (32-36); Mean Corpuscular Hemoglobin 27.5 pg (26-34); Mean Corpuscular Volume 90.9 fl (80-100); Mean Platelet Volume 10.6 fl (7.4-10.4); Platelet Count Result 421 k/mm3 (150-375); Red Blood Count 2.98 M/mm3 (4.6-6.20); Red Cell Distribution Width 15.9 % (11.5-14.5); White Blood Count 15.8 K/mm3 (4.5-10.0)
[2021-05-20 06:04] LABS: Alanine Aminotransferase 50 U/L (4-50); Albumin Level 2.9 g/dL (3.5-5.1); Alkaline Phosphatase 70 U/L (38-126); Anion Gap 0 mmol/L (8-16); Aspartate Amino Transferase 48 U/L (17-59); Bilirubin,Total 0.8 mg/dL (0.2-1.3); Blood Urea Nitrogen 30 mg/dL (9-20); Calcium 7.8 mg/dL (8.4-10.2); Carbon Dioxide 36 mmol/L (22-30); Chloride 104 mmol/L (98-107); Estimated CRCL calculation 74 ml/min; Estimated Glomerular Filt Rate > 60; Glucose 178 mg/dL (65-110); Magnesium 2.4 mg/dL (1.6-2.3); Potassium 3.4 mmol/L (3.4-5.0); Sodium 140 mmol/L (137-145)
[2021-05-20 08:41] LABS: Glucose Point of Care 177 mg/dl (65-105)
[2021-05-20] MEDS: PANTOPRAZOLE SODIUM IV 40 MG VIAL IV PUSH ×2 (08:42→20:39)
[2021-05-20] MEDS: levETIRAcetam ORAL SOL 500 MG/5 ML UDC FEED TUBE ×2 (08:43→20:37)
[2021-05-20] MEDS: methylPREDNISolone SOD SUCC 125 MG VIAL 60 MG IV PUSH (08:43)
[2021-05-20] MEDS: METOPROLOL TARTRATE 50 MG TAB PO ×2 (08:43→20:39)
[2021-05-20] MEDS: INSULIN GLARGINE (*BKC) 100 UNITS/ML 15 UNITS SUB-Q (08:43)
[2021-05-20] MEDS: FUROSEMIDE INJ 40 MG/4 ML VIAL IV PUSH (08:44)
[2021-05-20] MEDS: FERROUS SULFATE 324 MG TABLET PO ×2 (08:44→17:44)
[2021-05-20] MEDS: ATORVASTATIN 40 MG TABLET FEED TUBE (08:44)
[2021-05-20] MEDS: ASPIRIN 81 MG ENTERIC TABLET PO (08:44)
[2021-05-20] MEDS: CYANOCOBALAMIN 1,000 MCG TABLET 1000 MCG PO (08:44)
[2021-05-20] MEDS: BUDESONIDE RESPULE NEB 0.5 MG/2 ML AMP INHALATION (08:58)
--- NOTE | 2021-05-20 12:11 | PM.PNCARD ---
Progress Note: A&P Assessment and Plan (1) Atrial fibrillation with rapid ventricular response: Code(s): I48.91 - Unspecified atrial fibrillation Status: Resolved Assessment and Plan: Patient had atrial fibrillation with RVR with heart rates in 140s yesterday, heart rate has improved with IV amiodarone. Currently in atrial fibrillation with heart rates in 100s. Patient has established CAD with history of CABG, and class 1C antiarrhythmic drugs should be avoided. Flecainide was discontinued. Will continue IV amiodarone temporarily to control heart rate, along with oral metoprolol. Rate control and anticoagulation is primary goal at this time, not necessarily rhythm control. Continue anticoagulation with rivaroxaban. Plan discussed with ICU physician. Patient is currently IMU status. PT OT (2) Acute respiratory failure: Code(s): J96.00 - Acute respiratory failure, unspecified whether with hypoxia or hypercapnia Status: Acute Assessment and Plan: Extubated now. Further management per Critical Care. Respiratory arrest reportedly secondary to apparent decoupling from BiPAP resulting in severe bradycardia resolved with oxygenation and intubation. Sotalol discontinued. (3) QT prolongation: Code(s): R94.31 - Abnormal electrocardiogram [ECG] [EKG] Status: Acute Assessment and Plan: Had QT prolongation while on sotalol which has been discontinued. Avoid sotalol. (4) CAD (coronary artery disease): Qualifiers: Associated angina: unspecified whether angina present Coronary Disease-Associated Artery/Lesion type: unspecified vessel or lesion type [place] vs. transplanted heart: unspecified whether [place] or transplanted heart Qualified Code(s): I25.10 - Atherosclerotic heart disease of [place] coronary artery without angina pectoris Code(s): I25.10 - Atherosclerotic heart disease of [place] coronary artery without angina pectoris Status: Acute Assessment and Plan: No active ischemic symptoms. Continue low-dose aspirin, statin. Beta-rosita. (5) Syncope: Qualifiers: Syncope type: unspecified Qualified Code(s): R55 - Syncope and collapse Code(s): R55 - Syncope and collapse Status: Acute Assessment and Plan: (6) Anemia: Qualifiers: Anemia type: other cause Other causes of anemia: chronic disease, other Qualified Code(s): D63.8 - Anemia in other chronic diseases classified elsewhere Code(s): D64.9 - Anemia, unspecified Status: Acute Assessment and Plan: Stable, continue to monitor H&H. GI consultation noted. Anemia chronic disease no evidence of active bleed. (7) Rhabdomyolysis: Code(s): M62.82 - Rhabdomyolysis Status: Acute Assessment and Plan: (8) TRACY (acute kidney injury): Code(s): N17.9 - Acute kidney failure, unspecified Status: Acute Assessment and Plan: Stable thus far Continue to follow. Creatinine has improved. Subjective Date/time seen: 05/20/21 12:11 Interval history: Date of service: 05/19/2021 Interval history: Patient is in atrial fibrillation with RVR, heart rates in the 140s. He is lying down down in the bed, alert. Denies chest pain. Date of Service 05/20/2021: Patient remains in in atrial fibrillation, ventricular rates have improved to 100s. At present, he is alert. Denies chest pain or shortness of breath at rest. On telemetry, he is in atrial fibrillation with heart rates in 100s. Exam Narrative: PHYSICAL EXAMINATION: GENERAL: Ill-appearing male MENTAL STATUS: Flat affect EYES: Extraocular movements intact EARS: External ears appear normal, hearing grossly normal NOSE: Normal and patent, no discharge MOUTH: Mucous membranes moist, tongue normal NECK: Supple, no JVD CHEST: Decreased breath sounds HEART: Tachycardia, irregularly irregular ABDOMEN: Soft, nontender NEUROLOGICAL: Alert,
[2021-05-20 12:14] LABS: Glucose Point of Care 270 mg/dl (65-105)
[2021-05-20] MEDS: INSULIN ASPART (*BKC) 100 UNITS/ML SUB-Q ×3 (13:15→20:55)
--- NOTE | 2021-05-20 15:51 | PC.NURSE ---
This patient, Zack Dai, was transferred to [facility] on 05/20/21 at 1545. Personal belongings sent with patient. Report given to Rakel BENITEZ. Appropriate documentation sent with patient.
--- NOTE | 2021-05-20 16:11 | P.PNIM_ITS ---
Progress Note: A&P Assessment and Plan (1) Acute respiratory failure: Code(s): J96.00 - Acute respiratory failure, unspecified whether with hypoxia or hypercapnia Status: Acute Assessment and Plan: Acute respiratory failure likely related to the arrest, severe COPD, possible pneumonia, congestive heart failure / - 01/16 PSV SBT done for more than 1 hour. RSBI, ABGI and Vitals acceptable. Pt awake and following commands. patient was extubated. He later in the evening went on BiPAP for increased work of breathing. He wore BiPAP through the night. This morning he is doing well and is on nasal cannula and he states he is feeling better. - Continue nasal cannula and BiPAP p.r.n. and at night. Does have significant COPD at baseline -continue bronchodilators, Pulmicort (2) Cardiac arrest: Code(s): I46.9 - Cardiac arrest, cause unspecified Status: Acute Assessment and Plan: Cardiac arrest most likely related to respiratory event as his BiPAP was pulled apart and patient went into bradycardic and pulseless arrest -cardiology following the patient -patient was recently also started on sotalol which has been discontinued. Only sinus bradycardia -echocardiogram 05/10/2021 showed an EF of 65-70%. Grade 2 diastolic dysfunction, no aortic valve stenosis. -mild elevation in the troponins which are flat -patient with known coronary artery disease status post CABG and had cardiac catheterization done showed patent grafts and had stenting of his left subclavian artery stenosis. (3) TRACY (acute kidney injury): Code(s): N17.9 - Acute kidney failure, unspecified Status: Acute Assessment and Plan: Acute kidney injury with creatinine of 2.6 on admission -creatinine has came down to normal range -continue Lasix for pulmonary edema -continue to monitor urine output, renal function electrolytes (4) COPD (chronic obstructive pulmonary disease) with emphysema: Qualifiers: Emphysema type: unspecified Qualified Code(s): J43.9 - Emphysema, unspecified Code(s): J43.9 - Emphysema, unspecified Status: Acute Assessment and Plan: History of COPD with emphysema, continue bronchodilators and Pulmicort Continue daily Solu-Medrol (5) Rhabdomyolysis: Code(s): M62.82 - Rhabdomyolysis Status: Acute Assessment and Plan: CK levels have normalized (6) Anemia: Qualifiers: Anemia type: other cause Other causes of anemia: chronic disease, other Qualified Code(s): D63.8 - Anemia in other chronic diseases classified elsewhere Code(s): D64.9 - Anemia, unspecified Status: Acute Assessment and Plan: Patient presented with anemia, he has been on Xarelto, with multiple falls. Multiple bruising -appreciate GI evaluation and recommendations. Patient does have heme-positive stools on Xarelto and aspirin -anemia is likely multifactorial with possible chronic kidney disease, anemia of chronic disease, GI loss. No evidence of active GI bleed Stated-continue PPI -GI also recommended iron and Epogen. No endoscopic intervention at this time as he is a poor candidate with significant cardiac and pulmonary comorbidities Continue PO iron (7) DVT prophylaxis: Code(s): Z29.9 - Encounter for prophylactic measures, unspecified Status: Acute Assessment and Plan: Continue Xarelto (8) Leucocytosis: Qualifiers: Leukocytosis type: unspecified Qualified Code(s): D72.829 - Elevated white blood cell count, unspecified Code(s): D72.829 - Elevated white blood cell count, unspeci
[2021-05-20] MEDS: RIVAROXABAN 20 MG TABLET PO (17:44)
[2021-05-20 17:59] LABS: Glucose Point of Care 325 mg/dl (65-105)
[2021-05-20 20:09] LABS: Glucose Point of Care 285 mg/dl (65-105)
[2021-05-20] MEDS: MELATONIN 5 MG TABLET PO (20:40)
[2021-05-20] MEDS: INSULIN GLARGINE (*BKC) 100 UNITS/ML 24 UNITS SUB-Q (20:55)
[2021-05-20] MEDS: FLUTICASONE/SALMETEROL 115-21 MCG INHALER 1 PUFF 2 PUFF INHALATION (21:00)
[2021-05-21] VITALS (20 sets, daily range): BP systolic 100–147; BP diastolic 49–72; PULSE 7–87; RESP 18–32; TEMP 36.4–36.9; O2SAT 93–100
--- NOTE | 2021-05-21 02:29 | ECG_ITS ---
Measurements Intervals [place] Rate: 76 P: 62 ID: 190 QRS: 55 QRSD: 106 T: 11 QT: 421 QTc: 475 Interpretive Statements SINUS RHYTHM ATRIAL PREMATURE COMPLEXES BORDERLINE ST-T WAVE ABNORMALITY- INF/LAT LEADS BASELINE ARTIFACT- I, III, AVR, AVL, V3-V4 BORDERLINE ECG Electronically Signed On 05-21-2021 12:37:39 [employer] by Andrey Newman D.O.
[2021-05-21] MEDS: IPRATROPIUM BR 0.02% INH SOLN 0.5 MG/2.5 ML VIAL INHALATION (02:30)
[2021-05-21 05:28] LABS: Hematocrit 28.3 % (42.0-52.0); Hemoglobin 8.7 g/dL (14.0-18.0); Mean Corpuscular HGB Conc 30.7 g/dl (32-36); Mean Corpuscular Hemoglobin 28.3 pg (26-34); Mean Corpuscular Volume 92.2 fl (80-100); Mean Platelet Volume 10.3 fl (7.4-10.4); Platelet Count Result 416 k/mm3 (150-375); Red Blood Count 3.07 M/mm3 (4.6-6.20); White Blood Count 15.4 K/mm3 (4.5-10.0)
[2021-05-21 05:43] LABS: Alanine Aminotransferase 42 U/L (4-50); Albumin Level 3.1 g/dL (3.5-5.1); Alkaline Phosphatase 66 U/L (38-126); Anion Gap 1 mmol/L (8-16); Aspartate Amino Transferase 36 U/L (17-59); Bilirubin,Total 0.8 mg/dL (0.2-1.3); Blood Urea Nitrogen 30 mg/dL (9-20); Calcium 7.8 mg/dL (8.4-10.2); Carbon Dioxide 36 mmol/L (22-30); Chloride 99 mmol/L (98-107); Estimated CRCL calculation 73 ml/min; Estimated Glomerular Filt Rate > 60; Glucose 240 mg/dL (65-110); Magnesium 2.5 mg/dL (1.6-2.3); Potassium 3.6 mmol/L (3.4-5.0); Sodium 136 mmol/L (137-145)
[2021-05-21] MEDS: CENTRAL LINE FLUSH 10 ML IV PUSH ×4 (05:51→23:04)
[2021-05-21] MEDS: TRIMETHOBENZAMIDE HCL 200 MG/2 ML VIAL IM (06:02)
[2021-05-21 08:20] LABS: Glucose Point of Care 198 mg/dl (65-105)
[2021-05-21] MEDS: AMIODARONE 360 MG/D5W 200 ML 360 MG/200 ML BAG 16.67 MG IV CONT ×2 (08:52→22:46)
[2021-05-21] MEDS: FLUTICASONE/SALMETEROL 115-21 MCG INHALER 1 PUFF 2 PUFF INHALATION ×2 (09:03→20:01)
--- NOTE | 2021-05-21 11:07 | PC.NURSE ---
Patient reported N/V overnight and N/V this AM. Patient last documented BM was 05/11/2021, and again on 05/20/2021. Notified MD and obstructive series was ordered.
--- NOTE | 2021-05-21 11:34 | PM.IMPN ---
Progress Note: A&P Assessment and Plan (1) Nausea and vomiting: Code(s): R11.2 - Nausea with vomiting, unspecified Status: Acute Assessment and Plan: Patient with n/v overnight and today. KUB showing severely distended gas-filled colon which could indicate obstruction or possibly volvulus. NPO. Check CT Abd/Pelvis. Consider NGT but will get CT scan first. (2) Acute respiratory failure: Code(s): J96.00 - Acute respiratory failure, unspecified whether with hypoxia or hypercapnia Status: Acute Assessment and Plan: Patient developed cardiac arrest requiring intubation felt related to COPD, CHF and possible pneumonia. Was intubated 05/12/2021. Some difficulty but ultimately patient able to be extubated May 18. He did require BiPAP that evening due to increasing work breathing but that has since improved. he is down to 2 L O2 nasal cannula. He is wearing the BiPAP at night. Continue to wean oxygen as tolerated. Continue bronchodilators, Pulmicort (3) Cardiac arrest: Code(s): I46.9 - Cardiac arrest, cause unspecified Status: Acute Assessment and Plan: Patient on the evening of 05/12 called out and was found the BiPAP disconnected. His HR was in the 30's. Staff assessment showing no pulse so CPR started. Epi given x 3 and bicarb x1 with high quality CPR with return of ROSC. He was down for 8 minutes. Patient intubated. QT was prolonged. Troponin noted but felt related to the Code. No known seizure-like activity. Patient remains on Keppra post-code. CT brain showing no acute findings. Cardiac arrest most likely related to respiratory event as his BiPAP was pulled apart and patient went into bradycardic and pulseless arrest. Cardiology following the patient. (4) Bacteremia: Code(s): R78.81 - Bacteremia Status: Acute Assessment and Plan: CXR today reviewed and showing hazy opacities throughout both lungs. Last fevers were on 05/15/21. Patient re-cultured. BCx (1of2) growing Staphylococcus aureus. Sputum Cx growing stenotrophomonas. Patient remains on Levaquin and Vanco. WBC peaked at 19K and improved but now back up to 15K without change. Repeat BCx remain negative. Continue current abx. (5) Syncopal episodes: Qualifiers: Syncope type: unspecified Qualified Code(s): R55 - Syncope and collapse Code(s): R55 - Syncope and collapse Status: Acute Assessment and Plan: Multiple syncopal episodes prior to admission with head trauma. EKG with atrial fibrillation with RVR. COVID test was negative. He does have TRACY to suggest dehydration so consider orthostatic HoTN (but not seen in ED although not sure if he received IV fluids prior). Also with AFib/RVR which also may be contributing to his syncopal episodes. PT/OT resumed. (6) Hyperglycemia: Code(s): R73.9 - Hyperglycemia, unspecified Status: Acute Assessment and Plan: A1c 7.5. The patient's blood glucose was reviewed on 05/21 Not known to have DM but had elevated A1c. Glucose remains better controlled overall; he remains on steroids. Continue AccuCheks covering with sliding scale. Hypoglycemia protocol available as needed. Continue Lantus. Adjust medications as needed (7) Atrial fibrillation with rapid ventricular response: Code(s): I48.91 - Unspecified atrial fibrillation Status: Resolved Assessment and Plan: EKG on admission showing AFib. He was on Xarelto. Echo showing EF 65-70% with Grade II diastolic dysfunction. He was started on Amio drip to control rate but may have had a reaction to this in the past so Cardiology changed him to Sotalol but this was stopped due to the prolonged QT. Metoprolol was resumed. He was intermittently in/out of AFib so Flecainide added but now stopped. Remains on Amio IV. Appreciate Cardiology input. Check EKG since now on Levaquin. (8) TRACY (acute kidney injury): Code(s): N17.9 - Acute kidney failure, u
--- NOTE | 2021-05-21 11:48 | PM.PNCARD ---
Progress Note: A&P Assessment and Plan (1) Atrial fibrillation with rapid ventricular response: Code(s): I48.91 - Unspecified atrial fibrillation Status: Resolved Assessment and Plan: Patient had atrial fibrillation with RVR with heart rates in 140s yesterday, heart rate has improved with IV amiodarone. Currently in atrial fibrillation with heart rates in 100s. Patient has established CAD with history of CABG, and class 1C antiarrhythmic drugs should be avoided. Flecainide was discontinued. Will continue IV amiodarone temporarily to control heart rate, along with oral metoprolol. Rate control and anticoagulation is primary goal at this time, not necessarily rhythm control. Continue anticoagulation with rivaroxaban. Patient is currently IMU status. PT OT Will reduce his IV furosemide for now to 20 mg daily since he will be NPO. If need be, can switch over his other medications like metoprolol to IV also (2) Acute respiratory failure: Code(s): J96.00 - Acute respiratory failure, unspecified whether with hypoxia or hypercapnia Status: Acute Assessment and Plan: Extubated now. Further management per Critical Care. Respiratory arrest reportedly secondary to apparent decoupling from BiPAP resulting in severe bradycardia resolved with oxygenation and intubation. Sotalol discontinued. (3) QT prolongation: Code(s): R94.31 - Abnormal electrocardiogram [ECG] [EKG] Status: Acute Assessment and Plan: Had QT prolongation while on sotalol which has been discontinued. Avoid sotalol. (4) CAD (coronary artery disease): Qualifiers: Coronary Disease-Associated Artery/Lesion type: unspecified vessel or lesion type [place] vs. transplanted heart: unspecified whether [place] or transplanted heart Associated angina: unspecified whether angina present Qualified Code(s): I25.10 - Atherosclerotic heart disease of [place] coronary artery without angina pectoris Code(s): I25.10 - Atherosclerotic heart disease of [place] coronary artery without angina pectoris Status: Acute Assessment and Plan: No active ischemic symptoms. Continue low-dose aspirin, statin. Beta-rosita. (5) Syncope: Qualifiers: Syncope type: unspecified Qualified Code(s): R55 - Syncope and collapse Code(s): R55 - Syncope and collapse Status: Acute Assessment and Plan: (6) Anemia: Qualifiers: Anemia type: other cause Other causes of anemia: chronic disease, other Qualified Code(s): D63.8 - Anemia in other chronic diseases classified elsewhere Code(s): D64.9 - Anemia, unspecified Status: Acute Assessment and Plan: Stable, continue to monitor H&H. GI consultation noted. Anemia chronic disease no evidence of active bleed. (7) Rhabdomyolysis: Code(s): M62.82 - Rhabdomyolysis Status: Acute Assessment and Plan: (8) TRACY (acute kidney injury): Code(s): N17.9 - Acute kidney failure, unspecified Status: Acute Assessment and Plan: Stable thus far Continue to follow. Creatinine has improved. Subjective Date/time seen: 05/21/21 11:48 Interval history: Date of service: 05/19/2021 Interval history: Patient is in atrial fibrillation with RVR, heart rates in the 140s. He is lying down down in the bed, alert. Denies chest pain. Date of Service 05/20/2021: Patient remains in in atrial fibrillation, ventricular rates have improved to 100s. At present, he is alert. Denies chest pain or shortness of breath at rest. On telemetry, he is in atrial fibrillation with heart rates in 100s. Date of service 05/21/2021: In sinus rhythm but has been vomiting and has a bowel obstruction. He feels ?like crap?. No chest pain Review of Systems Constitutional: Constitutional: Denies fever(s), Reports frequent falls and Denies poor appetite Eyes: Eyes: Denies eye discharge, Denies loss of visi
[2021-05-21 12:11] LABS: Glucose Point of Care 188 mg/dl (65-105)
[2021-05-21] MEDS: PANTOPRAZOLE SODIUM IV 40 MG VIAL IV PUSH ×2 (12:36→23:04)
[2021-05-21] MEDS: methylPREDNISolone SOD SUCC 125 MG VIAL 60 MG IV PUSH (12:36)
[2021-05-21] MEDS: INSULIN GLARGINE (*BKC) 100 UNITS/ML 15 UNITS SUB-Q (12:37)
[2021-05-21] MEDS: LEVALBUTEROL HFA (*SP) 15 GM INHALER 2 PUFF INHALATION ×2 (13:50→20:01)
--- NOTE | 2021-05-21 14:02 | PCNFU ---
Nutrition Follow-Up Complete: Inadequate Oral Intake as related to mechanical ventilation as evidenced by NPO. Goal: Meet estimanted nutritional needs Pt is not progressing towards goal Pt current nutrition is NPO Last recorded weight is 117.8 kg, down 0.7kg since 05/20/21. Bowel Motility: +BM 05/20 reported Labs Reviewed: hgb 8.7, hct 28.3, alb 3.1, Na 136, CO2 36, BUN 30, Ca 7.8, Glu 240, Mg 2.5 Meds Noted: nexterone, lantus, levaquin, solu-medrol, protonix Skin: right groin wound, right 1st toe abrasion Additional Notes: Pt was extubated on 05/18/21. Pt transferred from ICU to IMU. Per physician notes, pt has been vomiting and has bowel obstruction. Current nutrition is NPO. Recommend advancing diet as tolerated. Agree with diet orders at this time. Will continue to follow. Will monitor every 3 days
--- NOTE | 2021-05-21 16:02 | PC.NURSE ---
Spoke with Dr. Bey. Hold Xarelto incase patient needs surgical intervention. Start clear liquid diet, OK to give medication PO. Nurse to call Dr. Bey if patient has N/V.
[2021-05-21] MEDS: BISACODYL 10 MG SUPPOSITORY RECTAL (16:52)
[2021-05-21] MEDS: rOPINIRole HCL 1 MG TABLET PO (16:53)
[2021-05-21] MEDS: INSULIN ASPART (*BKC) 100 UNITS/ML SUB-Q (16:54)
[2021-05-21 20:23] LABS: Glucose Point of Care 263 mg/dl (65-105)
[2021-05-21 20:24] LABS: Glucose Point of Care 308 mg/dl (65-105)
[2021-05-21] MEDS: INSULIN GLARGINE (*BKC) 100 UNITS/ML 24 UNITS SUB-Q (23:03)
[2021-05-21] MEDS: levETIRAcetam ORAL SOL 500 MG/5 ML UDC FEED TUBE (23:04)
[2021-05-21] MEDS: MELATONIN 5 MG TABLET PO (23:04)
[2021-05-21] MEDS: METOPROLOL TARTRATE 50 MG TAB PO (23:05)
[2021-05-21 23:54] LABS: Vancomycin Trough 13.5 ug/mL (10.0-20.0)
[2021-05-22] VITALS (27 sets, daily range): BP systolic 126–160; BP diastolic 40–91; PULSE 64–136; RESP 16–28; TEMP 36.2–36.7; O2SAT 90–99
[2021-05-22] MEDS: LEVALBUTEROL HFA (*SP) 15 GM INHALER 2 PUFF INHALATION ×4 (01:48→19:39)
[2021-05-22] MEDS: CENTRAL LINE FLUSH 10 ML IV PUSH ×4 (05:24→20:32)
[2021-05-22 05:36] LABS: Hematocrit 25.8 % (42.0-52.0); Mean Corpuscular Hemoglobin 27.9 pg (26-34); Mean Corpuscular Volume 89.9 fl (80-100); Platelet Count Result 405 k/mm3 (150-375); Red Blood Count 2.87 M/mm3 (4.6-6.20); White Blood Count 14.9 K/mm3 (4.5-10.0)
[2021-05-22 05:42] LABS: Alanine Aminotransferase 32 U/L (4-50); Alkaline Phosphatase 62 U/L (38-126); Anion Gap 4 mmol/L (8-16); Aspartate Amino Transferase 25 U/L (17-59); Bilirubin,Total 0.6 mg/dL (0.2-1.3); Blood Urea Nitrogen 26 mg/dL (9-20); Calcium 7.9 mg/dL (8.4-10.2); Carbon Dioxide 34 mmol/L (22-30); Chloride 98 mmol/L (98-107); Estimated CRCL calculation 73 ml/min; Estimated Glomerular Filt Rate > 60; Glucose 241 mg/dL (65-110); Magnesium 2.8 mg/dL (1.6-2.3); Potassium 3.7 mmol/L (3.4-5.0); Sodium 136 mmol/L (137-145)
[2021-05-22] MEDS: FLUTICASONE/SALMETEROL 115-21 MCG INHALER 1 PUFF 2 PUFF INHALATION ×2 (08:09→19:39)
[2021-05-22 08:32] LABS: Glucose Point of Care 142 mg/dl (65-105)
[2021-05-22] MEDS: ASPIRIN 81 MG ENTERIC TABLET PO (08:36)
[2021-05-22] MEDS: methylPREDNISolone SOD SUCC 125 MG VIAL 60 MG IV PUSH (08:36)
[2021-05-22] MEDS: PANTOPRAZOLE SODIUM IV 40 MG VIAL IV PUSH ×2 (08:36→20:32)
[2021-05-22] MEDS: FUROSEMIDE INJ 40 MG/4 ML VIAL 20 MG IV PUSH (08:36)
[2021-05-22] MEDS: levETIRAcetam ORAL SOL 500 MG/5 ML UDC FEED TUBE (08:37)
[2021-05-22] MEDS: CYANOCOBALAMIN 1,000 MCG TABLET 1000 MCG PO (08:37)
[2021-05-22] MEDS: FERROUS SULFATE 324 MG TABLET PO (08:37)
[2021-05-22] MEDS: ATORVASTATIN 40 MG TABLET FEED TUBE (08:37)
[2021-05-22] MEDS: rOPINIRole HCL 1 MG TABLET PO ×2 (08:37→12:11)
[2021-05-22] MEDS: METOPROLOL TARTRATE 50 MG TAB PO ×2 (08:38→20:31)
[2021-05-22] MEDS: INSULIN GLARGINE (*BKC) 100 UNITS/ML 15 UNITS SUB-Q (08:39)
[2021-05-22] MEDS: AMIODARONE 360 MG/D5W 200 ML 360 MG/200 ML BAG 16.67 MG IV CONT ×2 (08:44→18:10)
[2021-05-22] MEDS: BISACODYL 10 MG SUPPOSITORY RECTAL (08:44)
--- NOTE | 2021-05-22 09:54 | PM.PNCARD ---
Progress Note: A&P Assessment and Plan (1) Atrial fibrillation with rapid ventricular response: Code(s): I48.91 - Unspecified atrial fibrillation Status: Resolved Assessment and Plan: Patient had atrial fibrillation with RVR which improved with IV amiodarone. Currently in sinus rhythm with heart rates in 70s. Patient had abdominal distention and possible ileus. He is currently on clear liquid diet. Patient will remain on IV amiodarone for now, and switch to p.o. when able to take adequate meals. Patient is also on levofloxacin. Monitor QT interval closely. Anticipate amiodarone for short-term use. Check EKG tomorrow morning. Continue metoprolol. Patient has established CAD with history of CABG, and class 1C antiarrhythmic drugs should be avoided. Flecainide was previously discontinued. Continue anticoagulation with rivaroxaban. Plan discussed with primary team. PT OT (2) Acute respiratory failure: Code(s): J96.00 - Acute respiratory failure, unspecified whether with hypoxia or hypercapnia Status: Acute Assessment and Plan: Extubated now. Further management per primary hospitalist team. Respiratory arrest reportedly secondary to apparent decoupling from BiPAP resulting in severe bradycardia resolved with oxygenation and intubation. Sotalol discontinued. (3) QT prolongation: Code(s): R94.31 - Abnormal electrocardiogram [ECG] [EKG] Status: Acute Assessment and Plan: Had QT prolongation while on sotalol which has been discontinued. Avoid sotalol. (4) CAD (coronary artery disease): Qualifiers: Coronary Disease-Associated Artery/Lesion type: unspecified vessel or lesion type [place] vs. transplanted heart: unspecified whether [place] or transplanted heart Associated angina: unspecified whether angina present Qualified Code(s): I25.10 - Atherosclerotic heart disease of [place] coronary artery without angina pectoris Code(s): I25.10 - Atherosclerotic heart disease of [place] coronary artery without angina pectoris Status: Acute Assessment and Plan: No active ischemic symptoms. Continue low-dose aspirin, statin. Beta-rosita. (5) Syncope: Qualifiers: Syncope type: unspecified Qualified Code(s): R55 - Syncope and collapse Code(s): R55 - Syncope and collapse Status: Acute Assessment and Plan: (6) Anemia: Qualifiers: Anemia type: other cause Other causes of anemia: chronic disease, other Qualified Code(s): D63.8 - Anemia in other chronic diseases classified elsewhere Code(s): D64.9 - Anemia, unspecified Status: Acute Assessment and Plan: Stable, continue to monitor H&H. GI consultation noted. Anemia chronic disease no evidence of active bleed. (7) Rhabdomyolysis: Code(s): M62.82 - Rhabdomyolysis Status: Acute Assessment and Plan: (8) TRACY (acute kidney injury): Code(s): N17.9 - Acute kidney failure, unspecified Status: Acute Assessment and Plan: Stable thus far Continue to follow. Creatinine has improved. Subjective Date/time seen: 05/22/21 09:54 Interval history: Date of service: 05/19/2021 Interval history: Patient is in atrial fibrillation with RVR, heart rates in the 140s. He is lying down down in the bed, alert. Denies chest pain. Date of Service 05/20/2021: Patient remains in in atrial fibrillation, ventricular rates have improved to 100s. At present, he is alert. Denies chest pain or shortness of breath at rest. On telemetry, he is in atrial fibrillation with heart rates in 100s. Date of service 05/21/2021: In sinus rhythm but has been vomiting and has a bowel obstruction. He feels ?like crap?. No chest pain Date of service 05/22/2021-patient reports mild shortness of breath. Denies chest pain. He had abdominal distention which improved after bowel movement. CT abdomen showed prominent gaseous distention
--- NOTE | 2021-05-22 10:34 | PM.IMPN ---
Progress Note: A&P Assessment and Plan (1) Nausea and vomiting: Code(s): R11.2 - Nausea with vomiting, unspecified Status: Acute Assessment and Plan: Patient developed n/v overnight on 05/20. KUB 05/21 showing severely distended gas-filled colon. Patient made NPO and CT ordered; CT Abd/Pelvis showing prominent gaseous distention of the transverse colon without thumbprinting or wall thickening or pneumatosis. There is a moderately prominent amount of fecal material in the colon. No bowel obstruction is evident. He was resumed on clear liquid diet and dulcolax suppositories. He is having BMs now and n/v has resolved. Add miralax. Repeat xray. (2) Acute respiratory failure: Code(s): J96.00 - Acute respiratory failure, unspecified whether with hypoxia or hypercapnia Status: Acute Assessment and Plan: Patient developed cardiac arrest requiring intubation felt related to COPD, CHF and possible pneumonia. Was intubated 05/12/2021. Some difficulty but ultimately patient able to be extubated May 18. He did require BiPAP that evening due to increasing work breathing but that has since improved. He is down to 2 L O2 nasal cannula. CXR as mentioned below. He is wearing the BiPAP at night. Continue to wean oxygen as tolerated. Continue bronchodilators, Pulmicort. Speech therapy to evaluate (3) Cardiac arrest: Code(s): I46.9 - Cardiac arrest, cause unspecified Status: Acute Assessment and Plan: Patient on the evening of 05/12 called out and was found the BiPAP disconnected. His HR was in the 30's. Staff assessment showing no pulse so CPR started. Epi given x 3 and bicarb x1 with high quality CPR with return of ROSC. He was down for 8 minutes. Patient intubated. QT was prolonged. Troponin noted but felt related to the Code. No known seizure-like activity. Patient placed on Keppra post-code and remains on Keppra. CT brain showing no acute findings. Cardiac arrest most likely related to respiratory event as his BiPAP was pulled apart and patient went into bradycardic and pulseless arrest. Cardiology following the patient. Will stop Keppra now. (4) Bacteremia: Code(s): R78.81 - Bacteremia Status: Acute Assessment and Plan: CXR 05/21 reviewed and showing hazy opacities throughout both lungs. Last fevers were on 05/15/21. Patient re-cultured. BCx (1of2) growing Staphylococcus aureus. Sputum Cx growing stenotrophomonas. Patient remains on Levaquin and Vanco. WBC peaked at 19K and improved but now back up to 15K but now without change. Repeat BCx remain negative. Continue current abx. (5) Syncopal episodes: Qualifiers: Syncope type: unspecified Qualified Code(s): R55 - Syncope and collapse Code(s): R55 - Syncope and collapse Status: Acute Assessment and Plan: Multiple syncopal episodes prior to admission with head trauma. EKG with atrial fibrillation with RVR. COVID test was negative. He did have TRACY to suggest dehydration so consider orthostatic HoTN (but not seen in ED although not sure if he received IV fluids prior). Also with AFib/RVR which also may be contributing to his syncopal episodes. Continue PT/OT. (6) Hyperglycemia: Code(s): R73.9 - Hyperglycemia, unspecified Status: Acute Assessment and Plan: A1c 7.5. The patient's blood glucose was reviewed on 05/22 Not known to have DM but had elevated A1c. Glucose remains poorly controlled overall; he remains on steroids. Continue AccuCheks covering with sliding scale. Hypoglycemia protocol available as needed. Adjust Lantus as needed (7) Atrial fibrillation with rapid ventricular response: Code(s): I48.91 - Unspecified atrial fibrillation Status: Resolved Assessment and Plan: EKG on admission showing AFib. He was on Xarelto. Echo showing EF 65-70% with Grade II diastolic dysfunction. He was started on Amio drip to control rate but may have had a reaction
[2021-05-22] MEDS: polyethylene glycoL 3350 17 GM POWD.PACK PO (12:11)
[2021-05-22] MEDS: INSULIN ASPART (*BKC) 100 UNITS/ML SUB-Q ×2 (12:16→18:09)
[2021-05-22 12:27] LABS: Glucose Point of Care 232 mg/dl (65-105)
--- NOTE | 2021-05-22 16:42 | WPDGIPROGNO ---
Progress Note: A&P Assessment and Plan (1) Abdominal distension: Code(s): R14.0 - Abdominal distension (gaseous) Status: Acute Assessment and Plan: no abdominal pain or nausea bowel regimen and will add reglan recent CT scan showed prominent gaseous distention of the transverse colon without thumbprinting or wall thickening or pneumatosis, no volvulus, no perforation he had occult blood in stool but he is not fit to undergo colonoscopy (recent cardiac arrest and still has respiratory issues) medical management for now (2) Ileus, unspecified: Code(s): K56.7 - Ileus, unspecified Status: Acute Assessment and Plan: repeat abdominal xr, no signs of obstruction eventually he will benefit from colonoscopy, probably in near future once his overall condition is improved (3) Bacteremia: Code(s): R78.81 - Bacteremia Status: Acute Assessment and Plan: on antibiotics (4) Cardiac arrest: Code(s): I46.9 - Cardiac arrest, cause unspecified Status: Acute Assessment and Plan: improved, he was in icu (5) Acute respiratory failure: Code(s): J96.00 - Acute respiratory failure, unspecified whether with hypoxia or hypercapnia Status: Acute Assessment and Plan: briefly intubated, improving (6) Atrial fibrillation with rapid ventricular response: Code(s): I48.91 - Unspecified atrial fibrillation Status: Resolved (7) Chronic hypercapnic respiratory failure: Code(s): J96.12 - Chronic respiratory failure with hypercapnia Status: Acute Subjective Date/time seen: 05/22/21 16:42 Interval history: He was evaluated few days ago by Dr Bell in consultation because anemia and FOBT in setting of blood thinners but also he had cardiac arrest with respiratory failure after disconnected from BIPAP, briefly intubated. He is doing overall better and moved to floor but still using oxygen and having respiratory discomfort. I am called because noted more abdominal distension, abdominal XR showed possible colon ileus but he had BM x2, no report of nausea but NGT was just placed today. Hb has been ~ 8. He also has bacteremia and is on antibiotics Review of Systems Review of Systems: All systems reviewed & are unremarkable except as noted in HPI and below Exam Const: Other: ill appearing but more comfortable, NGT in place and using oxygen HENMT: General nose exam: Normal nares present Eyes: Sclera: sclerae normal Neck: Neck: supple Resp: Auscultation: rhonchi, wheezes expiratory wheezes and inspiratory wheezes and diminished lung sounds Cardio: Rate: regular rate GI: Inspection: distended GI Palp: Yes Soft to palpation and No Guarding due to palpation present (GI) Auscultation: normal bowel sounds Other: tympanic, no rebound, no guarding Urinary Catheter: Urinary Catheter: patent and draining Skin: General skin exam: no rashes or lesions noted Neuro: Speech: normal speech Extrem: General: normal to inspection Psych: Mental Status: mental status grossly normal Objective Data Vital Signs Vital Signs: Vital Signs - 24 hr 05/21/21 18:00 05/21/21 20:00 05/21/21 20:02 Temperature 97.9 F Pulse Rate 85 81 79 Respiratory Rate 20 Blood Pressure 100/72 Pulse Oximetry 100 93 05/21/21 22:00 05/22/21 00:00 05/22/21 02:00 Temperature 97.7 F Pulse Rate 78 81 78 Respiratory Rate 20 Blood Pressure 126/60 Pulse Oximetry 97 05/22/21 04:00 05/22/21 06:00 05/22/21 08:00 Temperature 97.8 F Pulse Rate 74 76 70 Respiratory Rate 20 Blood Pressure 148/44 H Pulse Oximetry 98 98 05/22/21 08:12 05/22/21 08:38 05/22/21 08:39 Temperature 97.2 F L Pulse Rate 68 72 Respiratory Rate 23 H Blood Pressure 138/53 L Pulse Oximetry 93 99 05/22/21 08:44 05/22/21 10:00 05/22/21 11:56 Temperature Pulse Rate 74 66 Respiratory Rate Blood Pressure Pulse Oximetry 98 05/22/21 12:
[2021-05-22 17:20] LABS: Glucose Point of Care 246 mg/dl (65-105)
[2021-05-22] MEDS: METOCLOPRAMIDE HCL INJ 10 MG/2 ML VIAL 5 MG IV PUSH (18:05)
[2021-05-22 18:13] LABS: Glucose Point of Care 271 mg/dl (65-105)
--- NOTE | 2021-05-22 18:26 | ECG_ITS ---
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
[2021-05-22 18:40] LABS: Base Excess ABG 4.8 mEq/l (+/-2.0); Carboxyhemoglobin 0.3 % THb (0-2.0); Fractional Inspired Oxygen 28 %; HCO3 ABG 30.1 mEq/l (22.0-26.0); Methemoglobin ABG 0.1 %THb (0-1.5); Oxygen Content ABG 12.8 %vol (16.0-22.0); Oxygen Saturation ABG 90.5 % (95.0-100.0); PCO2 ABG 48.2 mmHg (35.0-45.0); PO2 ABG 58.8 mmHg (80.0-100.0); Reduced Hemoglobin 11.7 %THb (0-5.0); Total Hemoglobin 10.3 g/dL (12.0-18.0); pH ABG 7.413 (7.350-7.450)
[2021-05-22 18:42] LABS: Device NASAL CANNULA; Oxyhemoglobin 87.9 % THb (90.0-100.0); Site Drawn RIGHT BRACHIAL
[2021-05-22] MEDS: INSULIN GLARGINE (*BKC) 100 UNITS/ML 12 UNITS SUB-Q (20:32)
[2021-05-22 20:42] LABS: Glucose Point of Care 237 mg/dl (65-105)
[2021-05-23] VITALS (19 sets, daily range): BP systolic 125–144; BP diastolic 48–74; PULSE 72–105; RESP 20–28; TEMP 36–37.1; O2SAT 92–100
[2021-05-23 00:11] LABS: Glucose Point of Care 132 mg/dl (65-105)
[2021-05-23] MEDS: LEVALBUTEROL HFA (*SP) 15 GM INHALER 2 PUFF INHALATION ×2 (01:25→20:59)
[2021-05-23] MEDS: METOCLOPRAMIDE HCL INJ 10 MG/2 ML VIAL 5 MG IV PUSH ×3 (02:10→17:23)
[2021-05-23] MEDS: CENTRAL LINE FLUSH 10 ML IV PUSH ×4 (05:54→20:20)
[2021-05-23] MEDS: AMIODARONE 360 MG/D5W 200 ML 360 MG/200 ML BAG 16.67 MG IV CONT ×2 (05:54→17:55)
[2021-05-23 06:17] LABS: Hematocrit 26.4 % (42.0-52.0); Hemoglobin 8.2 g/dL (14.0-18.0); Mean Corpuscular HGB Conc 31.1 g/dl (32-36); Mean Corpuscular Hemoglobin 28.5 pg (26-34); Mean Corpuscular Volume 91.7 fl (80-100); Mean Platelet Volume 10.6 fl (7.4-10.4); Platelet Count Result 396 k/mm3 (150-375); Red Blood Count 2.88 M/mm3 (4.6-6.20); Red Cell Distribution Width 16.2 % (11.5-14.5); White Blood Count 15.1 K/mm3 (4.5-10.0)
[2021-05-23 06:28] LABS: Alanine Aminotransferase 29 U/L (4-50); Albumin Level 3.2 g/dL (3.5-5.1); Alkaline Phosphatase 63 U/L (38-126); Anion Gap 2 mmol/L (8-16); Aspartate Amino Transferase 27 U/L (17-59); Bilirubin,Total 0.8 mg/dL (0.2-1.3); Blood Urea Nitrogen 23 mg/dL (9-20); Calcium 8.2 mg/dL (8.4-10.2); Carbon Dioxide 34 mmol/L (22-30); Chloride 102 mmol/L (98-107); Estimated CRCL calculation 68 ml/min; Estimated Glomerular Filt Rate 60; Glucose 131 mg/dL (65-110); Magnesium 2.6 mg/dL (1.6-2.3); Potassium 3.2 mmol/L (3.4-5.0); Sodium 138 mmol/L (137-145)
[2021-05-23 06:31] LABS: Glucose Point of Care 133 mg/dl (65-105)
--- NOTE | 2021-05-23 09:04 | ECG_ITS ---
Measurements Intervals [place] Rate: 82 P: 74 SC: 192 QRS: 70 QRSD: 105 T: 37 QT: 400 QTc: 469 Interpretive Statements SINUS RHYTHM BORDERLINE AV CONDUCTION DELAY BORDERLINE ST-T WAVE ABNORMALITY- ANTEROLAT/HIGH LAT LEADS BASELINE ARTIFACT- I, II, III, AVR, AVL, AVF, V1-V3 BORDERLINE ECG Electronically Signed On 05-23-2021 11:46:28 ENDLESS TRACK VEHICLE SUPERVISOR by Andrey Newman D.O.
[2021-05-23] MEDS: METOPROLOL TARTRATE 50 MG TAB PO ×2 (09:34→20:19)
[2021-05-23] MEDS: KCL 20 MEQ/SW 100 ML 100 ML 50 MEQ IVPB (09:34)
[2021-05-23] MEDS: FUROSEMIDE INJ 40 MG/4 ML VIAL 20 MG IV PUSH (09:35)
[2021-05-23] MEDS: methylPREDNISolone SOD SUCC 125 MG VIAL 60 MG IV PUSH (09:35)
[2021-05-23] MEDS: PANTOPRAZOLE SODIUM IV 40 MG VIAL IV PUSH ×2 (09:35→20:19)
[2021-05-23] MEDS: BISACODYL 10 MG SUPPOSITORY RECTAL (09:36)
--- NOTE | 2021-05-23 10:23 | PM.PNCARD ---
Progress Note: A&P Assessment and Plan (1) Atrial fibrillation with rapid ventricular response: Code(s): I48.91 - Unspecified atrial fibrillation Status: Resolved Assessment and Plan: Patient had atrial fibrillation with RVR which improved with IV amiodarone. Currently in sinus rhythm with heart rates in 70s. Patient had abdominal distention and possible ileus. He is currently on clear liquid diet. Patient will remain on IV amiodarone for now, and switch to p.o. when able to take adequate meals. Patient is also on levofloxacin. Monitor QT interval closely. Anticipate amiodarone for short-term use. Check EKG tomorrow morning. Continue metoprolol. Patient has established CAD with history of CABG, and class 1C antiarrhythmic drugs should be avoided. Flecainide was previously discontinued. Continue anticoagulation with rivaroxaban. Plan discussed with primary team. PT OT (2) Acute respiratory failure: Code(s): J96.00 - Acute respiratory failure, unspecified whether with hypoxia or hypercapnia Status: Acute Assessment and Plan: Extubated now. Further management per primary hospitalist team. Respiratory arrest reportedly secondary to apparent decoupling from BiPAP resulting in severe bradycardia resolved with oxygenation and intubation. Sotalol discontinued. (3) QT prolongation: Code(s): R94.31 - Abnormal electrocardiogram [ECG] [EKG] Status: Acute Assessment and Plan: Had QT prolongation while on sotalol which has been discontinued. Avoid sotalol. EKG pending today (4) CAD (coronary artery disease): Qualifiers: Coronary Disease-Associated Artery/Lesion type: unspecified vessel or lesion type [place] vs. transplanted heart: unspecified whether [place] or transplanted heart Associated angina: unspecified whether angina present Qualified Code(s): I25.10 - Atherosclerotic heart disease of [place] coronary artery without angina pectoris Code(s): I25.10 - Atherosclerotic heart disease of [place] coronary artery without angina pectoris Status: Acute Assessment and Plan: No active ischemic symptoms. Continue low-dose aspirin, statin. Beta-rosita. (5) Syncope: Qualifiers: Syncope type: unspecified Qualified Code(s): R55 - Syncope and collapse Code(s): R55 - Syncope and collapse Status: Acute Assessment and Plan: (6) Anemia: Qualifiers: Anemia type: other cause Other causes of anemia: chronic disease, other Qualified Code(s): D63.8 - Anemia in other chronic diseases classified elsewhere Code(s): D64.9 - Anemia, unspecified Status: Acute Assessment and Plan: Stable, continue to monitor H&H. GI consultation noted. Anemia chronic disease no evidence of active bleed. (7) Rhabdomyolysis: Code(s): M62.82 - Rhabdomyolysis Status: Acute Assessment and Plan: (8) TRACY (acute kidney injury): Code(s): N17.9 - Acute kidney failure, unspecified Status: Acute Assessment and Plan: Stable thus far Continue to follow. Creatinine is stable (9) Hypokalemia: Code(s): E87.6 - Hypokalemia Status: Acute Assessment and Plan: Will replace with 40 mEq potassium chloride x1 Subjective Date/time seen: 05/23/21 10:23 Interval history: Date of service: 05/19/2021 Interval history: Patient is in atrial fibrillation with RVR, heart rates in the 140s. He is lying down down in the bed, alert. Denies chest pain. Date of Service 05/20/2021: Patient remains in in atrial fibrillation, ventricular rates have improved to 100s. At present, he is alert. Denies chest pain or shortness of breath at rest. On telemetry, he is in atrial fibrillation with heart rates in 100s. Date of service 05/21/2021: In sinus rhythm but has been vomiting and has a bowel obstruction. He feels ?like crap?. No chest pain Date of service 05/22/2021-patien
--- NOTE | 2021-05-23 12:16 | PM.IMPN ---
Progress Note: A&P Assessment and Plan (1) Ileus, unspecified: Code(s): K56.7 - Ileus, unspecified Status: Acute Assessment and Plan: Patient developed n/v overnight on 05/20. KUB 05/21 showing severely distended gas-filled colon. Patient made NPO and CT ordered; CT Abd/Pelvis showing prominent gaseous distention of the transverse colon without thumbprinting or wall thickening or pneumatosis. There is a moderately prominent amount of fecal material in the colon. No bowel obstruction is evident. He was made NPO and NGT placed. Dulcolax suppositories and Reglan added. He is having BMs. Repeat xray showing persistent distended colon. GI following and appreciate their input. (2) Acute respiratory failure: Code(s): J96.00 - Acute respiratory failure, unspecified whether with hypoxia or hypercapnia Status: Acute Assessment and Plan: Patient developed cardiac arrest requiring intubation felt related to COPD, CHF and possible pneumonia. Was intubated 05/12/2021. Some difficulty but ultimately patient able to be extubated May 18. He did require BiPAP that evening due to increasing work breathing but that has since improved. He is down to 2 L O2 nasal cannula. CXR as mentioned below. He is wearing the BiPAP at night. Continue to wean oxygen as tolerated. Continue bronchodilators, Pulmicort. Speech therapy to evaluate (3) Cardiac arrest: Code(s): I46.9 - Cardiac arrest, cause unspecified Status: Acute Assessment and Plan: Patient on the evening of 05/12 called out and was found the BiPAP disconnected. His HR was in the 30's. Staff assessment showing no pulse so CPR started. Epi given x 3 and bicarb x1 with high quality CPR with return of ROSC. He was down for 8 minutes. Patient intubated. QT was prolonged. Troponin noted but felt related to the Code. No known seizure-like activity. Patient placed on Keppra post-code but no evidence of seizures and patietn recovered so Keppra stopped. CT brain showing no acute findings. Cardiac arrest most likely related to respiratory event as his BiPAP was pulled apart and patient went into bradycardic and pulseless arrest. Cardiology following the patient. (4) Bacteremia: Code(s): R78.81 - Bacteremia Status: Acute Assessment and Plan: CXR 05/21 reviewed and showing hazy opacities throughout both lungs. Last fevers were on 05/15/21. Patient re-cultured. BCx (1of2) growing Staphylococcus aureus. Sputum Cx growing stenotrophomonas. Patient remains on Levaquin and Vanco. WBC peaked at 19K and improved but now back up to 15K but now without change. Repeat BCx remain negative. Continue current abx. (5) Syncopal episodes: Qualifiers: Syncope type: unspecified Qualified Code(s): R55 - Syncope and collapse Code(s): R55 - Syncope and collapse Status: Acute Assessment and Plan: Multiple syncopal episodes prior to admission with head trauma. EKG with atrial fibrillation with RVR. COVID test was negative. He did have TRACY to suggest dehydration so consider orthostatic HoTN (but not seen in ED although not sure if he received IV fluids prior). Also with AFib/RVR which also may be contributing to his syncopal episodes. Continue PT/OT. (6) Hyperglycemia: Code(s): R73.9 - Hyperglycemia, unspecified Status: Acute Assessment and Plan: A1c 7.5. The patient's blood glucose was reviewed on 05/23 Not known to have DM but had elevated A1c. Glucose better overall. Continue AccuCheks covering with sliding scale. Hypoglycemia protocol available as needed. Adjust Lantus as needed (7) Atrial fibrillation with rapid ventricular response: Code(s): I48.91 - Unspecified atrial fibrillation Status: Resolved Assessment and Plan: EKG on admission showing AFib. He was on Xarelto. Echo showing EF 65-70% with Grade II diastolic dysfunction. He was started on Amio drip to control rate but may hav
[2021-05-23 13:01] LABS: Glucose Point of Care 144 mg/dl (65-105)
--- NOTE | 2021-05-23 13:47 | PCNFU ---
Nutrition Follow-Up Complete: Inadequate Oral Intake as related to mechanical ventilation as evidenced by NPO. Goal: Meet estimated nutritional needs Pt is slowly progressing towards goal Pt current nutrition is clear liquid diet/NPO Last recorded weight is 117.7 kg, down 0.8kg since last reported weight on 05/19/21. Bowel Motility: +BM 05/23 reported Labs Reviewed: hgb 8.2, hct 26.4, alb 3.2, CO2 34, K 3.2, GFR 60, BUN 23, Ca 8.2, Glu 131, Mg 2.6 Meds Noted: nexterone, lasix, levaquin, solu-medrol, reglan, lopressor, protonix, vancomycin Skin: right groin wound, right 1st toe abrasion Additional Notes: Pt was on a clear liquid diet with reported intake of 50% x2 and 100%. Pt is currently NPO for procedure. Recommend advancing diet as tolerated by pt. Agree with diet orders at this time. Will continue to follow. Will monitor every 3 days
--- NOTE | 2021-05-23 14:31 | PCOTNOTE ---
Attempted to see patient this pm, however patient just beginning with physical therapy at this time.
--- NOTE | 2021-05-23 15:24 | WPDGIPROGNO ---
Progress Note: A&P Assessment and Plan (1) Abdominal distension: Code(s): R14.0 - Abdominal distension (gaseous) Status: Acute Assessment and Plan: no abdominal pain or nausea continued bowel regimen, also reglan KUB with similar findings but no obstruction or other worrisome findings will start CL diet and if tolerated then ok to discontinue NGT as he is mostly asymptomatic he had occult blood in stool but he is not fit to undergo colonoscopy (recent cardiac arrest and still has respiratory issues) medical management for now (2) Ileus, unspecified: Code(s): K56.7 - Ileus, unspecified Status: Acute Assessment and Plan: repeat abdominal xr without signs of obstruction eventually he will benefit from colonoscopy, probably in near future once his overall condition is improved hb has been stable, no signs of overt gib (3) Bacteremia: Code(s): R78.81 - Bacteremia Status: Acute Assessment and Plan: on antibiotics (4) Cardiac arrest: Code(s): I46.9 - Cardiac arrest, cause unspecified Status: Acute Assessment and Plan: improved, he was in icu (5) Acute respiratory failure: Code(s): J96.00 - Acute respiratory failure, unspecified whether with hypoxia or hypercapnia Status: Acute Assessment and Plan: briefly intubated, improving (6) Atrial fibrillation with rapid ventricular response: Code(s): I48.91 - Unspecified atrial fibrillation Status: Resolved (7) Chronic hypercapnic respiratory failure: Code(s): J96.12 - Chronic respiratory failure with hypercapnia Status: Acute (8) Anemia: Qualifiers: Anemia type: other cause Other causes of anemia: chronic disease, other Qualified Code(s): D63.8 - Anemia in other chronic diseases classified elsewhere Code(s): D64.9 - Anemia, unspecified Status: Acute Assessment and Plan: probably multifactorial, low but has been stable Subjective Date/time seen: 05/23/21 15:24 Interval history: patient is comfortable, denies abdominal pain and has been passing gas. Earlier had sip of water and doing ok, he is hungry. NGT still in place Review of Systems Review of Systems: All systems reviewed & are unremarkable except as noted in HPI and below Exam Const: Other: ill appearing but more comfortable, NGT in place and using oxygen HENMT: General nose exam: Normal nares present Eyes: Sclera: sclerae normal Neck: Neck: supple Resp: Auscultation: wheezes (improved today) expiratory wheezes and inspiratory wheezes Cardio: Rate: regular rate GI: Inspection: distended GI Palp: Yes Soft to palpation and No Guarding due to palpation present (GI) Auscultation: normal bowel sounds Other: tympanic, no rebound, no guarding Urinary Catheter: Urinary Catheter: patent and draining Skin: General skin exam: no rashes or lesions noted Neuro: Speech: normal speech Extrem: General: normal to inspection Psych: Mental Status: mental status grossly normal Objective Data Vital Signs Vital Signs: Vital Signs - 24 hr 05/22/21 16:00 05/22/21 17:12 05/22/21 17:32 Temperature 97.6 F Pulse Rate 77 79 73 Respiratory Rate 24 H Blood Pressure 149/68 H Pulse Oximetry 98 94 05/22/21 18:10 05/22/21 18:13 05/22/21 18:49 Temperature Pulse Rate 131 H 136 H 88 Respiratory Rate 28 H 17 Blood Pressure 160/91 H Pulse Oximetry 92 05/22/21 19:37 05/22/21 19:41 05/22/21 20:00 Temperature 98.0 F Pulse Rate 87 86 86 Respiratory Rate 18 20 16 Blood Pressure 141/55 H Pulse Oximetry 90 99 05/22/21 20:31 05/22/21 22:00 05/22/21 23:28 Temperature 98.0 F Pulse Rate 87 78 73 Respiratory Rate 24 H Blood Pressure 135/40 L Pulse Oximetry 96 98 05/22/21 23:50 05/23/21 00:00 05/23/21 01:26 Temperature Pulse Rate 72 75 73 Respiratory Rate 26 H 21 H Blood Pressure Pulse Oximetry 95 100 05/23/21 02:00 02
[2021-05-23 17:18] LABS: Glucose Point of Care 277 mg/dl (65-105)
[2021-05-23] MEDS: INSULIN ASPART (*BKC) 100 UNITS/ML SUB-Q (17:23)
[2021-05-23] MEDS: INSULIN GLARGINE (*BKC) 100 UNITS/ML 12 UNITS SUB-Q (20:20)
[2021-05-23] MEDS: FLUTICASONE/SALMETEROL 115-21 MCG INHALER 1 PUFF 2 PUFF INHALATION (20:58)
[2021-05-23 23:33] LABS: Glucose Point of Care 155 mg/dl (65-105)
[2021-05-24] VITALS (16 sets, daily range): BP systolic 119–149; BP diastolic 49–74; PULSE 67–83; RESP 18–26; TEMP 36.4–37.1; O2SAT 95–100
[2021-05-24] MEDS: METOCLOPRAMIDE HCL INJ 10 MG/2 ML VIAL 5 MG IV PUSH ×3 (01:52→17:52)
[2021-05-24] MEDS: LEVALBUTEROL HFA (*SP) 15 GM INHALER 2 PUFF INHALATION ×4 (03:06→19:59)
[2021-05-24] MEDS: AMIODARONE 360 MG/D5W 200 ML 360 MG/200 ML BAG 16.67 MG IV CONT ×2 (05:30→17:53)
[2021-05-24] MEDS: CENTRAL LINE FLUSH 10 ML IV PUSH ×4 (05:31→20:32)
[2021-05-24 06:05] LABS: Alanine Aminotransferase 26 U/L (4-50); Alkaline Phosphatase 62 U/L (38-126); Anion Gap 4 mmol/L (8-16); Aspartate Amino Transferase 26 U/L (17-59); Bilirubin,Total 0.8 mg/dL (0.2-1.3); Blood Urea Nitrogen 21 mg/dL (9-20); Calcium 7.8 mg/dL (8.4-10.2); Carbon Dioxide 34 mmol/L (22-30); Chloride 98 mmol/L (98-107); Estimated CRCL calculation 73 ml/min; Estimated Glomerular Filt Rate > 60; Glucose 133 mg/dL (65-110); Magnesium 2.5 mg/dL (1.6-2.3); Sodium 136 mmol/L (137-145)
[2021-05-24 07:52] LABS: Hematocrit 25.1 % (42.0-52.0); Hemoglobin 7.7 g/dL (14.0-18.0); Mean Corpuscular HGB Conc 30.7 g/dl (32-36); Mean Corpuscular Hemoglobin 27.9 pg (26-34); Mean Corpuscular Volume 90.9 fl (80-100); Mean Platelet Volume 11.1 fl (7.4-10.4); Platelet Count Result 350 k/mm3 (150-375); Red Blood Count 2.76 M/mm3 (4.6-6.20); Red Cell Distribution Width 16.5 % (11.5-14.5)
[2021-05-24] MEDS: FLUTICASONE/SALMETEROL 115-21 MCG INHALER 1 PUFF 2 PUFF INHALATION ×2 (08:40→19:59)
--- NOTE | 2021-05-24 09:02 | PM.PNCARD ---
Progress Note: A&P Assessment and Plan (1) Atrial fibrillation with rapid ventricular response: Code(s): I48.91 - Unspecified atrial fibrillation Status: Resolved Assessment and Plan: Patient had atrial fibrillation with RVR which improved with IV amiodarone. Currently in sinus rhythm with heart rates in 70s. Patient had abdominal distention and possible ileus. His diet has been advanced to clear liquids at this point. Continue IV amiodarone for now, patient remains on clear liquid diet for possible ileus. Will shift him to p.o. amiodarone when he is eating adequately. Also on levofloxacin-check EKG for QTC prolongation. QTC is been stable up to this point. Continue metoprolol Anticoagulation has been on hold since 05/20 due to occult blood in the stool and concern for possible surgery for ileus. Continue to hold anticoagulation until okay with GI to resume. (2) Acute respiratory failure: Code(s): J96.00 - Acute respiratory failure, unspecified whether with hypoxia or hypercapnia Status: Acute Assessment and Plan: Extubated now. Further management per primary hospitalist team. Respiratory arrest reportedly secondary to apparent decoupling from BiPAP resulting in severe bradycardia resolved with oxygenation and intubation. Sotalol discontinued. (3) QT prolongation: Code(s): R94.31 - Abnormal electrocardiogram [ECG] [EKG] Status: Acute Assessment and Plan: Had QT prolongation while on sotalol which has been discontinued. Avoid sotalol. EKG pending today (4) CAD (coronary artery disease): Qualifiers: Associated angina: unspecified whether angina present Coronary Disease-Associated Artery/Lesion type: unspecified vessel or lesion type [place] vs. transplanted heart: unspecified whether [place] or transplanted heart Qualified Code(s): I25.10 - Atherosclerotic heart disease of [place] coronary artery without angina pectoris Code(s): I25.10 - Atherosclerotic heart disease of [place] coronary artery without angina pectoris Status: Acute Assessment and Plan: No active ischemic symptoms. Continue low-dose aspirin, statin. Beta-rosita. (5) Syncope: Qualifiers: Syncope type: unspecified Qualified Code(s): R55 - Syncope and collapse Code(s): R55 - Syncope and collapse Status: Acute Assessment and Plan: (6) Anemia: Qualifiers: Anemia type: other cause Other causes of anemia: chronic disease, other Qualified Code(s): D63.8 - Anemia in other chronic diseases classified elsewhere Code(s): D64.9 - Anemia, unspecified Status: Acute Assessment and Plan: Stable, continue to monitor H&H. GI consultation noted. Anemia chronic disease no evidence of active bleed. (7) Rhabdomyolysis: Code(s): M62.82 - Rhabdomyolysis Status: Acute Assessment and Plan: (8) TRACY (acute kidney injury): Code(s): N17.9 - Acute kidney failure, unspecified Status: Acute Assessment and Plan: Stable thus far Continue to follow. Creatinine is stable (9) Hypokalemia: Code(s): E87.6 - Hypokalemia Status: Acute Assessment and Plan: This has been repleted. Subjective Date/time seen: 05/24/21 09:02 Interval history: Date of service: 05/19/2021 Interval history: Patient is in atrial fibrillation with RVR, heart rates in the 140s. He is lying down down in the bed, alert. Denies chest pain. Date of Service 05/20/2021: Patient remains in in atrial fibrillation, ventricular rates have improved to 100s. At present, he is alert. Denies chest pain or shortness of breath at rest. On telemetry, he is in atrial fibrillation with heart rates in 100s. Date of service 05/21/2021: In sinus rhythm but has been vomiting and has a bowel obstruction. He feels ?like crap?. No chest pain Date of service 05/22/2021-patient reports mild shortness of breath
[2021-05-24] MEDS: PANTOPRAZOLE SODIUM IV 40 MG VIAL IV PUSH ×2 (09:04→20:31)
[2021-05-24] MEDS: methylPREDNISolone SOD SUCC 125 MG VIAL 60 MG IV PUSH (09:04)
--- NOTE | 2021-05-24 09:04 | ECG_ITS ---
Measurements Intervals [place] Rate: 72 P: 70 RI: 200 QRS: 77 QRSD: 106 T: 51 QT: 350 QTc: 384 Interpretive Statements SINUS RHYTHM WITH SINUS ARRHYTHMIA BORDERLINE T WAVE ABNORMALITY- HIGH LATERAL LEADS BASELINE ARTIFACT- I, II, III, AVR, AVL, AVF, V2, V4-V6 BORDERLINE ECG Electronically Signed On 05-24-2021 10:19:55 DOWEL STICKER OPERATOR by Andrey Newman D.O.
[2021-05-24] MEDS: METOPROLOL TARTRATE 50 MG TAB PO ×2 (09:05→20:31)
[2021-05-24] MEDS: FUROSEMIDE INJ 40 MG/4 ML VIAL 20 MG IV PUSH (09:05)
[2021-05-24] MEDS: POTASSIUM CHLORIDE INJ 40 MEQ in SODIUM CHLORIDE 0.9% IV 500 ML 130 MEQ IVPB (09:09)
[2021-05-24 09:16] LABS: Glucose Point of Care 151 mg/dl (65-105)
--- NOTE | 2021-05-24 10:08 | WPDGIPROGNO ---
Progress Note: A&P Assessment and Plan (1) Abdominal distension: Code(s): R14.0 - Abdominal distension (gaseous) Status: Acute Assessment and Plan: no abdominal pain or nausea, abdomen distended but he is comfortable. NGT removed continued bowel regimen, also reglan tolerating CLD he had occult blood in stool but he is not fit to undergo colonoscopy (recent cardiac arrest and still has respiratory issues) medical management for now (2) Ileus, unspecified: Code(s): K56.7 - Ileus, unspecified Status: Acute Assessment and Plan: eventually he will benefit from colonoscopy, probably in near future as outpatient once his overall condition is improved hb has been stable, no signs of overt gib (3) Bacteremia: Code(s): R78.81 - Bacteremia Status: Acute Assessment and Plan: on antibiotics (4) Cardiac arrest: Code(s): I46.9 - Cardiac arrest, cause unspecified Status: Acute Assessment and Plan: treated in icu, cardiology on board (5) Acute respiratory failure: Code(s): J96.00 - Acute respiratory failure, unspecified whether with hypoxia or hypercapnia Status: Acute Assessment and Plan: briefly intubated, improving (6) Anemia: Qualifiers: Anemia type: other cause Other causes of anemia: chronic disease, other Qualified Code(s): D63.8 - Anemia in other chronic diseases classified elsewhere Code(s): D64.9 - Anemia, unspecified Status: Acute Assessment and Plan: probably multifactorial, low but has been stable (7) Chronic hypercapnic respiratory failure: Code(s): J96.12 - Chronic respiratory failure with hypercapnia Status: Acute (8) Atrial fibrillation with rapid ventricular response: Code(s): I48.91 - Unspecified atrial fibrillation Status: Resolved Subjective Date/time seen: 05/24/21 10:08 Interval history: ngt removed, tolerated liquid diet. Denies nausea or abdominal pain, he is comfortable sitting in chair. Passing gas. Review of Systems Review of Systems: All systems reviewed & are unremarkable except as noted in HPI and below Exam Const: Other: ill appearing but more comfortable, using oxygen HENMT: General nose exam: Normal nares present Eyes: Sclera: sclerae normal Neck: Neck: supple Resp: Auscultation: no crackles and wheezes (improved today) expiratory wheezes and inspiratory wheezes Cardio: Rate: regular rate GI: Inspection: distended GI Palp: Yes Soft to palpation and No Guarding due to palpation present (GI) Auscultation: normal bowel sounds Other: tympanic, no rebound, no guarding Urinary Catheter: Urinary Catheter: patent and draining Skin: General skin exam: no rashes or lesions noted Neuro: Speech: normal speech Extrem: General: normal to inspection Psych: Mental Status: mental status grossly normal Objective Data Vital Signs Vital Signs: Vital Signs - 24 hr 05/23/21 12:00 05/23/21 14:00 05/23/21 16:00 Temperature 98.7 F 96.8 F L Pulse Rate 86 87 80 Respiratory Rate 24 H 24 H Blood Pressure 139/53 L 125/57 L Pulse Oximetry 92 100 05/23/21 18:00 05/23/21 20:00 05/23/21 20:19 Temperature 98.0 F Pulse Rate 84 91 90 Respiratory Rate 20 Blood Pressure 128/74 Pulse Oximetry 96 05/23/21 21:00 05/23/21 22:00 05/23/21 23:10 Temperature Pulse Rate 72 77 Respiratory Rate 22 H Blood Pressure Pulse Oximetry 96 98 05/23/21 23:37 05/24/21 00:00 05/24/21 02:00 Temperature 97.9 F Pulse Rate 75 75 72 Respiratory Rate 22 H 22 H Blood Pressure 144/54 H Pulse Oximetry 98 98 05/24/21 03:07 05/24/21 04:00 05/24/21 05:30 Temperature 97.9 F Pulse Rate 70 77 76 Respiratory Rate 26 H 20 Blood Pressure 149/49 H Pulse Oximetry 96 98 05/24/21 05:39 05/24/21 08:00 05/24/21 08:44 Temperature 98.4 F Pulse Rate 78 77 Respiratory Rate 18 Blood Pressure 134/53 L Pulse Oximetr
--- NOTE | 2021-05-24 11:19 | PM.IMPN ---
Progress Note: A&P Assessment and Plan (1) Ileus, unspecified: Code(s): K56.7 - Ileus, unspecified Status: Acute Assessment and Plan: Patient developed n/v overnight on 05/20. KUB 05/21 showing severely distended gas-filled colon. Patient made NPO and CT ordered; CT Abd/Pelvis showing prominent gaseous distention of the transverse colon without thumbprinting or wall thickening or pneumatosis. There is a moderately prominent amount of fecal material in the colon. No bowel obstruction is evident. He was made NPO and NGT placed. Dulcolax suppositories and Reglan added. He is having BMs. Repeat xray pending. NGT out and currently on clear liquid diet. GI following and appreciate their input. (2) Acute respiratory failure: Code(s): J96.00 - Acute respiratory failure, unspecified whether with hypoxia or hypercapnia Status: Acute Assessment and Plan: Patient developed cardiac arrest requiring intubation felt related to below with COPD, CHF and/or pneumonia. Was intubated 05/12/21. Some difficulty but ultimately patient able to be extubated May 18. He did require BiPAP that evening due to increasing work of breathing but that has since improved. He is down to 2 L O2 nasal cannula. CXR as mentioned below. He is wearing the BiPAP at night mostly. Continue to wean oxygen as tolerated. Continue bronchodilators, Advair. Speech therapy to evaluate (3) Cardiac arrest: Code(s): I46.9 - Cardiac arrest, cause unspecified Status: Acute Assessment and Plan: Patient on the evening of 05/12 called out and was found the BiPAP disconnected. His HR was in the 30's. Staff assessment showing no pulse so CPR started. Epi given x 3 and bicarb x1 with high quality CPR with return of ROSC. He was down for 8 minutes. Patient intubated. QT was prolonged. CT brain showing no acute findings. Troponin noted but felt related to the Code. No known seizure-like activity. Patient placed on Keppra post-code but no evidence of seizures and patient recovered so Keppra stopped. Cardiac arrest most likely related to respiratory event as his BiPAP was pulled apart and patient went into bradycardic and pulseless arrest. Cardiology following the patient. (4) Bacteremia: Code(s): R78.81 - Bacteremia Status: Acute Assessment and Plan: CXR 05/21 reviewed and showing hazy opacities throughout both lungs. Last fevers were on 05/15/21. Patient re-cultured on 05/16 with BCx (1of2) growing oxacillin sensitive Staphylococcus aureus. Sputum Cx 05/16 growing stenotrophomonas. Patient remains on Levaquin and Vanco. WBC peaked at 19K and improved down to 12K. Repeat BCx negative. Continue Levaquin. Will change to Cefazolin (5) Syncopal episodes: Qualifiers: Syncope type: unspecified Qualified Code(s): R55 - Syncope and collapse Code(s): R55 - Syncope and collapse Status: Acute Assessment and Plan: Multiple syncopal episodes prior to admission with head trauma. CT brain showing no acute intracranial findings or fractures but old infarcts noted. EKG with atrial fibrillation with RVR. COVID test was negative. He did have TRACY to suggest dehydration so consider orthostatic HoTN (but not seen in ED although not sure if he received IV fluids prior). Also with AFib/RVR which also may be contributing to his syncopal episodes. Continue PT/OT. (6) Hyperglycemia: Code(s): R73.9 - Hyperglycemia, unspecified Status: Acute Assessment and Plan: A1c 7.5. The patient's blood glucose was reviewed on 05/24 Not known to have DM but had elevated A1c. Glucose better overall. Continue AccuCheks covering with sliding scale. Hypoglycemia protocol available as needed. Continue Lantus at current dose (7) Atrial fibrillation with rapid ventricular response: Code(s): I48.91 - Unspecified atrial fibrillation Status: Resolved Assessment and Plan: EKG on admission showing AFib.
[2021-05-24 12:53] LABS: Glucose Point of Care 204 mg/dl (65-105)
[2021-05-24] MEDS: ceFAZolin 2 GM/D5W 50 ML 2 GM/50 ML BAG IVPB ×2 (13:34→20:30)
--- NOTE | 2021-05-24 14:33 | PCSTNOTE ---
Attempt was made to see patient for Bedside Swallow Evaluation however patient was being seen by another staff member at that time. Will attempt either later or in the morning.
[2021-05-24 17:52] LABS: Glucose Point of Care 244 mg/dl (65-105)
[2021-05-24] MEDS: INSULIN GLARGINE (*BKC) 100 UNITS/ML 12 UNITS SUB-Q (20:31)
[2021-05-25] VITALS (17 sets, daily range): BP systolic 129–174; BP diastolic 49–91; PULSE 65–83; RESP 18–24; TEMP 36.3–37.2; O2SAT 96–100
[2021-05-25 00:20] LABS: Glucose Point of Care 174 mg/dl (65-105)
[2021-05-25] MEDS: LEVALBUTEROL HFA (*SP) 15 GM INHALER 2 PUFF INHALATION ×4 (02:10→21:11)
[2021-05-25] MEDS: METOCLOPRAMIDE HCL INJ 10 MG/2 ML VIAL 5 MG IV PUSH ×3 (03:16→18:40)
[2021-05-25] MEDS: ceFAZolin 2 GM/D5W 50 ML 2 GM/50 ML BAG IVPB ×3 (03:17→20:37)
[2021-05-25] MEDS: AMIODARONE 360 MG/D5W 200 ML 360 MG/200 ML BAG 16.67 MG IV CONT ×2 (06:07→18:37)
[2021-05-25] MEDS: CENTRAL LINE FLUSH 10 ML IV PUSH ×4 (06:08→20:37)
[2021-05-25 07:00] LABS: Hematocrit 25.9 % (42.0-52.0); Hemoglobin 8.1 g/dL (14.0-18.0); Mean Corpuscular HGB Conc 31.3 g/dl (32-36); Mean Corpuscular Hemoglobin 28.4 pg (26-34); Mean Corpuscular Volume 90.9 fl (80-100); Mean Platelet Volume 11.4 fl (7.4-10.4); Platelet Count Result 288 k/mm3 (150-375); Red Blood Count 2.85 M/mm3 (4.6-6.20); Red Cell Distribution Width 16.4 % (11.5-14.5); White Blood Count 12.6 K/mm3 (4.5-10.0)
[2021-05-25 07:31] LABS: Albumin Level 2.1 g/dL (3.5-5.1); Anion Gap 0 mmol/L (8-16); Blood Urea Nitrogen 13 mg/dL (9-20); Calcium 5.3 mg/dL (8.4-10.2); Carbon Dioxide 25 mmol/L (22-30); Chloride 109 mmol/L (98-107); Estimated CRCL calculation 115 ml/min; Estimated Glomerular Filt Rate > 60; Glucose 165 mg/dL (65-110); Magnesium 1.8 mg/dL (1.6-2.3); Phosphorus 2.9 mg/dL (2.5-4.5); Potassium 2.2 mmol/L (3.4-5.0); Sodium 134 mmol/L (137-145)
[2021-05-25] MEDS: FLUTICASONE/SALMETEROL 115-21 MCG INHALER 1 PUFF 2 PUFF INHALATION ×2 (08:43→21:11)
[2021-05-25] MEDS: PANTOPRAZOLE SODIUM IV 40 MG VIAL IV PUSH ×2 (08:50→20:37)
[2021-05-25] MEDS: methylPREDNISolone SOD SUCC 125 MG VIAL 60 MG IV PUSH (08:50)
[2021-05-25] MEDS: METOPROLOL TARTRATE 50 MG TAB PO ×2 (08:50→20:37)
[2021-05-25] MEDS: FUROSEMIDE INJ 40 MG/4 ML VIAL 20 MG IV PUSH (08:50)
[2021-05-25] MEDS: BISACODYL 10 MG SUPPOSITORY RECTAL (08:51)
[2021-05-25] MEDS: POTASSIUM CHLORIDE INJ 40 MEQ in SODIUM CHLORIDE 0.9% IV 500 ML 130 MEQ IVPB (08:51)
--- NOTE | 2021-05-25 09:38 | PCSTNOTE ---
Please refer to the Bedside Swallow Evaluation in the EMR. Please note, silent aspiration cannot be ruled out at bedside.
--- NOTE | 2021-05-25 11:29 | PM.IMPN ---
Progress Note: A&P Assessment and Plan (1) Ileus, unspecified: Code(s): K56.7 - Ileus, unspecified Status: Acute Assessment and Plan: Patient developed n/v overnight on 05/20. KUB 05/21 showing severely distended gas-filled colon. CT Abd/Pelvis showing prominent gaseous distention of the transverse colon without thumbprinting or wall thickening or pneumatosis. There is a moderately prominent amount of fecal material in the colon. No bowel obstruction is evident. He was made NPO and NGT placed. Dulcolax suppositories and Reglan added. NGT out and currently on clear liquid diet. He is having BMs. GI following and appreciate their input. Resume Miralax. (2) Electrolyte abnormality: Code(s): E87.8 - Other disorders of electrolyte and fluid balance, not elsewhere classified Status: Acute Assessment and Plan: Potassium dropped to 2.2. Replacement ordered. Mag 1.8 so will replace as well. Calcium 5.3 with albumin 2.1. Corrected 6.8. Replace calcium given the ileus. Phos level normal (3) Acute respiratory failure: Code(s): J96.00 - Acute respiratory failure, unspecified whether with hypoxia or hypercapnia Status: Acute Assessment and Plan: Patient developed cardiac arrest requiring intubation felt related to below with COPD, CHF and/or pneumonia. Was intubated 05/12/21. Some difficulty but ultimately patient able to be extubated May 18. He did require BiPAP that evening due to increasing work of breathing but that has since improved. He is down to 2 L O2 nasal cannula. CXR as mentioned below. He is wearing the BiPAP at night mostly. Continue to wean oxygen as tolerated. Continue bronchodilators, Advair. Speech therapy evaluation noted. (4) Cardiac arrest: Code(s): I46.9 - Cardiac arrest, cause unspecified Status: Acute Assessment and Plan: Patient on the evening of 05/12 called out and was found the BiPAP disconnected. His HR was in the 30's. Staff assessment showing no pulse so CPR started. Epi given x 3 and bicarb x1 with high quality CPR with return of ROSC. He was down for 8 minutes. Patient intubated. QT was prolonged. CT brain showing no acute findings. Troponin noted but felt related to the Code. No known seizure-like activity. Patient placed on Keppra post-code but no evidence of seizures and patient recovered so Keppra stopped. Cardiac arrest most likely related to respiratory event as his BiPAP was pulled apart and patient went into bradycardic and pulseless arrest. Recovering well. Cardiology following the patient. (5) Bacteremia: Code(s): R78.81 - Bacteremia Status: Acute Assessment and Plan: CXR 05/21 reviewed and showing hazy opacities throughout both lungs. Last fevers were on 05/15/21. Patient re-cultured on 05/16 with BCx (1of2) growing oxacillin sensitive Staphylococcus aureus. Sputum Cx 05/16 growing stenotrophomonas. Cefepime started 05/17 [id number] and changed to Levaquin on 05/20/21. Vanco started 05/17 at 1230pm and changed to Cefazolin on 05/24. WBC peaked at 19K and improved down to 12K. Repeat BCx negative. Continue Levaquin and Cefazolin. (6) Syncopal episodes: Qualifiers: Syncope type: unspecified Qualified Code(s): R55 - Syncope and collapse Code(s): R55 - Syncope and collapse Status: Acute Assessment and Plan: Multiple syncopal episodes prior to admission with head trauma. CT brain showing no acute intracranial findings or fractures but old infarcts noted. EKG with atrial fibrillation with RVR. COVID test was negative. He did have TRACY to suggest dehydration so consider orthostatic HoTN (but not seen in ED although not sure if he received IV fluids prior). Also with AFib/RVR which also may be contributing to his syncopal episodes. No recurrence of events. Continue PT/OT. (7) Diabetes mellitus: Code(s): E11.9 - Type 2 diabetes mellitus without complications Status: Acute Asses
[2021-05-25] MEDS: INSULIN ASPART (*BKC) 100 UNITS/ML SUB-Q ×2 (12:06→18:38)
--- NOTE | 2021-05-25 12:06 | PCNFU ---
Nutrition Follow-Up Complete: Inadequate Oral Intake as related to mechanical ventilation as evidenced by NPO. Goal: Meet estimanted nutritional needs Pt is making progress towards goal Pt current nutrition is Clear liquid diet Last recorded weight is 123.7 kg. Bowel Motility: +BM 05/25 Labs Reviewed: hgb 8.1, hct 25.9, alb 2.1, Na 134, K 2.2, Cl 109, Ca 5.3, Glu 165 Meds Noted: nexterone, dulcolax, ancef, lasix, novolog, levaquin, solu-medrol, reglan, lopressor, protonix Skin: right groin wound, right toe, 1st abrasion Additional Notes: Attempted to visit with pt but MD was in room at time of attempt. Current nutrition is a clear liquid diet with reported intake of 50% x2, 25%, and 10%. Recommend advancing diet as tolerated by pt. Recommend encouraging intake. Agree with diet orders at this time. Will continue to follow. Will monitor every 3 days
[2021-05-25 12:34] LABS: Glucose Point of Care 219 mg/dl (65-105)
[2021-05-25] MEDS: HEPARIN SOD/D5W 100 UNITS/ML 25,000 UNITS/250 ML BAG 15 UNITS IV CONT (13:30)
[2021-05-25] MEDS: MAGNESIUM SULF 2 GM/WATER 50ML 2 GM/50 ML BAG IVPB (13:31)
[2021-05-25 13:56] LABS: Magnesium 2.1 mg/dL (1.6-2.3); Potassium 3.9 mmol/L (3.4-5.0)
[2021-05-25 14:19] LABS: Partial Thromboplastin Time 28.1 SECONDS (22.3-36.8)
[2021-05-25 14:46] LABS: INR 1.3; Prothrombin Time 15.2 Seconds (11.1-14.7)
--- NOTE | 2021-05-25 16:12 | WPDGIPROGNO ---
Progress Note: A&P Assessment and Plan (1) Abdominal distension: Code(s): R14.0 - Abdominal distension (gaseous) Status: Acute Assessment and Plan: clinically doing well, will advance diet continue bowel regimen, reglan he had occult blood in stool but he is not fit to undergo colonoscopy (recent cardiac arrest and still has respiratory issues) medical management for now (2) Ileus, unspecified: Code(s): K56.7 - Ileus, unspecified Status: Acute Assessment and Plan: eventually he will benefit from colonoscopy, probably in near future as outpatient once his overall condition is improved hb has been stable, no signs of overt gib (3) Bacteremia: Code(s): R78.81 - Bacteremia Status: Acute Assessment and Plan: on antibiotics (4) Cardiac arrest: Code(s): I46.9 - Cardiac arrest, cause unspecified Status: Acute Assessment and Plan: treated in icu, cardiology on board (5) Acute respiratory failure: Code(s): J96.00 - Acute respiratory failure, unspecified whether with hypoxia or hypercapnia Status: Acute Assessment and Plan: briefly intubated, improving (6) Anemia: Qualifiers: Anemia type: other cause Other causes of anemia: chronic disease, other Qualified Code(s): D63.8 - Anemia in other chronic diseases classified elsewhere Code(s): D64.9 - Anemia, unspecified Status: Acute Assessment and Plan: probably multifactorial, low but has been stable Subjective Date/time seen: 05/25/21 16:12 Interval history: he has been tolerating liquid diet and had BM x3, doing well Review of Systems Review of Systems: All systems reviewed & are unremarkable except as noted in HPI and below Exam Const: Other: ill appearing but more comfortable, using oxygen HENMT: General nose exam: Normal nares present Eyes: Sclera: sclerae normal Neck: Neck: supple Resp: Auscultation: no crackles and wheezes (improving) Cardio: Rate: regular rate GI: Inspection: distended GI Palp: Yes Soft to palpation and No Guarding due to palpation present (GI) Auscultation: normal bowel sounds Other: no rebound, no guarding Urinary Catheter: Urinary Catheter: patent and draining Skin: General skin exam: no rashes or lesions noted Neuro: Speech: normal speech Extrem: General: normal to inspection Psych: Mental Status: mental status grossly normal Objective Data Vital Signs Vital Signs: Vital Signs - 24 hr 05/24/21 19:47 05/24/21 20:00 05/24/21 20:06 Temperature 98 F Pulse Rate 78 72 Respiratory Rate 20 20 Blood Pressure 134/67 Pulse Oximetry 100 98 98 05/24/21 20:31 05/24/21 22:00 05/24/21 23:45 Temperature 97.6 F Pulse Rate 72 82 73 Respiratory Rate 18 Blood Pressure 131/56 L Pulse Oximetry 98 05/25/21 00:00 05/25/21 02:00 05/25/21 03:24 Temperature Pulse Rate 80 78 75 Respiratory Rate 18 18 Blood Pressure Pulse Oximetry 98 98 05/25/21 03:46 05/25/21 05:52 05/25/21 08:00 Temperature 97.5 F L 98.0 F Pulse Rate 73 76 75 Respiratory Rate 20 24 H Blood Pressure 130/49 L 136/53 L Pulse Oximetry 96 97 05/25/21 08:47 05/25/21 10:00 05/25/21 12:00 Temperature 98.2 F Pulse Rate 65 77 Respiratory Rate 18 Blood Pressure 148/49 H Pulse Oximetry 97 97 05/25/21 14:00 Temperature Pulse Rate 70 Respiratory Rate Blood Pressure Pulse Oximetry Intake/Output Intake/Output: Intake & Output 05/22/21 05/23/21 05/24/21 05/25/21 23:59 23:59 23:59 23:59 Intake Total 2140 1110 3920 1130 Output Total 950 1700 1600 450 Balance 1190 -590 2320 680 Meds/Results Medications: Active Medications Generic Name Dose Route Start Last Admin Trade Name Freq PRN Reason Stop Dose Admin Acetaminophen 650 mg 05/15/21 21:03 Acetaminophen Elixir 325 Mg/10.15 Ml Udc FEED TUBE Q4H PRN Mild Pain (1-3) or Fever Aspirin 81 mg 05/10/21 09:00
[2021-05-25 18:17] LABS: Glucose Point of Care 293 mg/dl (65-105)
[2021-05-25] MEDS: polyethylene glycoL 3350 17 GM POWD.PACK PO (18:37)
[2021-05-25] MEDS: CALCIUM GLUCONATE 1,000 MG/10 ML VIAL 1000 MG IV PUSH (18:37)
[2021-05-25 20:17] LABS: Partial Thromboplastin Time 104.5 SECONDS (22.3-36.8)
[2021-05-25 20:47] LABS: Glucose Point of Care 218 mg/dl (65-105)
[2021-05-25] MEDS: INSULIN GLARGINE (*BKC) 100 UNITS/ML 12 UNITS SUB-Q (21:16)
[2021-05-26] VITALS (21 sets, daily range): BP systolic 118–152; BP diastolic 48–90; PULSE 75–87; RESP 18–22; TEMP 36–36.4; O2SAT 95–100
[2021-05-26 02:07] LABS: Basophils Percent Auto 0.1 % (0.2-1.2); Hematocrit 24.7 % (42.0-52.0); Hemoglobin 7.8 g/dL (14.0-18.0); Immature Granulocyte Absolute 0.07 K/mm3 (0.00-0.031); Immature Granulocyte Percent A 0.6 % (0-0.5); Lymphocytes Absolute Auto 0.91 K/mm3 (0.9-3.2); Lymphocytes Percent Auto 7.4 % (18.3-44.2); Mean Corpuscular HGB Conc 31.6 g/dl (32-36); Mean Corpuscular Hemoglobin 28.4 pg (26-34); Mean Corpuscular Volume 89.8 fl (80-100); Mean Platelet Volume 10.3 fl (7.4-10.4); Monocytes Absolute Auto 0.7 K/mm3 (0.1-0.6); Monocytes Percent Auto 5.4 % (2.6-8.5); Neutrophils Absolute Auto 10.6 K/mm3 (1.3-6.7); Neutrophils Percent Auto 86.5 % (45.5-73.1); Platelet Count Result 354 k/mm3 (150-375); Red Blood Count 2.75 M/mm3 (4.6-6.20); Red Cell Distribution Width 16.6 % (11.5-14.5); White Blood Count 12.3 K/mm3 (4.5-10.0)
--- NOTE | 2021-05-26 02:15 | PC.NURSE ---
Pt found on heparin at 18mls/hr at shift change. Ptt drawn was therapeutic at that time. Edited MAR to reflect correct rate at 0215, drip was not increased at this time. Awaiting new ptt results for continued therapy.
[2021-05-26 02:27] LABS: Alanine Aminotransferase 20 U/L (4-50); Albumin Level 3.1 g/dL (3.5-5.1); Alkaline Phosphatase 64 U/L (38-126); Anion Gap 6 mmol/L (8-16); Aspartate Amino Transferase 28 U/L (17-59); Bilirubin,Total 0.7 mg/dL (0.2-1.3); Blood Urea Nitrogen 18 mg/dL (9-20); Calcium 7.9 mg/dL (8.4-10.2); Carbon Dioxide 33 mmol/L (22-30); Chloride 91 mmol/L (98-107); Estimated CRCL calculation 75 ml/min; Estimated Glomerular Filt Rate > 60; Glucose 151 mg/dL (65-110); Magnesium 2.6 mg/dL (1.6-2.3); Potassium 3.2 mmol/L (3.4-5.0); Sodium 130 mmol/L (137-145)
[2021-05-26 02:49] LABS: Partial Thromboplastin Time 179.8 SECONDS (22.3-36.8)
[2021-05-26] MEDS: METOCLOPRAMIDE HCL INJ 10 MG/2 ML VIAL 5 MG IV PUSH ×3 (02:54→17:04)
[2021-05-26] MEDS: LEVALBUTEROL HFA (*SP) 15 GM INHALER 2 PUFF INHALATION ×4 (03:15→19:50)
[2021-05-26] MEDS: ceFAZolin 2 GM/D5W 50 ML 2 GM/50 ML BAG IVPB ×3 (04:04→20:07)
[2021-05-26] MEDS: HEPARIN SOD/D5W 100 UNITS/ML 25,000 UNITS/250 ML BAG 15 UNITS IV CONT (04:07)
[2021-05-26] MEDS: AMIODARONE 360 MG/D5W 200 ML 360 MG/200 ML BAG 16.67 MG IV CONT (06:26)
[2021-05-26] MEDS: CENTRAL LINE FLUSH 10 ML IV PUSH ×4 (06:26→20:05)
[2021-05-26] MEDS: PANTOPRAZOLE SODIUM IV 40 MG VIAL IV PUSH ×2 (08:16→20:04)
[2021-05-26] MEDS: methylPREDNISolone SOD SUCC 40 MG VIAL IV PUSH (08:16)
[2021-05-26] MEDS: FUROSEMIDE INJ 40 MG/4 ML VIAL 20 MG IV PUSH ×2 (08:16→16:54)
[2021-05-26] MEDS: BISACODYL 10 MG SUPPOSITORY RECTAL (08:17)
[2021-05-26] MEDS: polyethylene glycoL 3350 17 GM POWD.PACK PO ×2 (08:17→16:53)
[2021-05-26] MEDS: ASPIRIN 81 MG ENTERIC TABLET PO (08:17)
[2021-05-26] MEDS: ATORVASTATIN 40 MG TABLET BY MOUTH (08:17)
[2021-05-26] MEDS: METOPROLOL TARTRATE 50 MG TAB PO ×2 (08:17→20:05)
[2021-05-26] MEDS: levoFLOXacin 750 MG TABLET PO (08:21)
[2021-05-26 08:24] LABS: Glucose Point of Care 157 mg/dl (65-105)
[2021-05-26] MEDS: FLUTICASONE/SALMETEROL 115-21 MCG INHALER 1 PUFF 2 PUFF INHALATION ×2 (08:46→19:50)
[2021-05-26 10:23] LABS: Partial Thromboplastin Time > 200.0 SECONDS (22.3-36.8)
--- NOTE | 2021-05-26 11:02 | WPDGIPROGNO ---
Progress Note: A&P Assessment and Plan (1) Abdominal distension: Code(s): R14.0 - Abdominal distension (gaseous) Status: Acute Assessment and Plan: clinically doing well, he is eating more and tolerating diet continue bowel regimen, reglan he had occult blood in stool but he is not fit to undergo colonoscopy (recent cardiac arrest after respiratory distress) medical management for now (2) Ileus, unspecified: Code(s): K56.7 - Ileus, unspecified Status: Acute Assessment and Plan: eventually he will benefit from colonoscopy since he never had one, probably in near future as outpatient once his overall condition is improved (patient still on amiodarone, heparin gtt, on treatment for bacteremia, etc) hb has been stable, no signs of overt gib and he is on heparin gtt (3) Bacteremia: Code(s): R78.81 - Bacteremia Status: Acute Assessment and Plan: on antibiotics for Stenotrophomonas maltophilia, repeat culture negative (4) Cardiac arrest: Code(s): I46.9 - Cardiac arrest, cause unspecified Status: Acute Assessment and Plan: treated in icu, cardiology on board and still on amiodaron gtt- plan to switch to oral now that he is tolerating diet (5) Acute respiratory failure: Code(s): J96.00 - Acute respiratory failure, unspecified whether with hypoxia or hypercapnia Status: Acute Assessment and Plan: briefly intubated, this has improved (6) Anemia: Qualifiers: Anemia type: other cause Other causes of anemia: chronic disease, other Qualified Code(s): D63.8 - Anemia in other chronic diseases classified elsewhere Code(s): D64.9 - Anemia, unspecified Status: Acute Assessment and Plan: probably multifactorial, low but has been stable patient is on heparin gtt Subjective Date/time seen: 05/26/21 11:02 Interval history: tolerating soft diet, no abdominal pain and having BM's- he thinks that abdomen distension has come down. Still on amiodarone and heparin gtt. Review of Systems Review of Systems: All systems reviewed & are unremarkable except as noted in HPI and below Exam Const: Other: ill appearing but more comfortable, using oxygen HENMT: General nose exam: Normal nares present Eyes: Sclera: sclerae normal Neck: Neck: supple Resp: Auscultation: no crackles and wheezes (improving) Cardio: Rate: regular rate GI: Inspection: distended GI Palp: Yes Soft to palpation, No Tenderness to palpation present (GI) and No Guarding due to palpation present (GI) Auscultation: normal bowel sounds Other: no rebound, no guarding Urinary Catheter: Urinary Catheter: patent and draining Skin: General skin exam: no rashes or lesions noted Neuro: Speech: normal speech Extrem: General: normal to inspection Psych: Mental Status: mental status grossly normal Objective Data Vital Signs Vital Signs: Vital Signs - 24 hr 05/25/21 12:00 05/25/21 14:00 05/25/21 16:00 Temperature 98.2 F 98.4 F Pulse Rate 77 70 83 Respiratory Rate 18 20 Blood Pressure 148/49 H 129/91 H Pulse Oximetry 97 100 05/25/21 18:00 05/25/21 19:35 05/25/21 20:00 Temperature 99 F Pulse Rate 77 82 80 Respiratory Rate 18 Blood Pressure 174/55 H Pulse Oximetry 99 99 05/25/21 20:37 05/25/21 22:00 05/25/21 23:47 Temperature 97.4 F L Pulse Rate 79 72 75 Respiratory Rate 20 Blood Pressure 149/53 H Pulse Oximetry 100 05/26/21 00:00 05/26/21 02:00 05/26/21 03:11 Temperature Pulse Rate 76 78 Respiratory Rate Blood Pressure Pulse Oximetry 100 100 05/26/21 04:00 05/26/21 06:00 05/26/21 06:26 Temperature 97.5 F L Pulse Rate 81 82 85 Respiratory Rate 18 Blood Pressure 125/48 L Pulse Oximetry 100 05/26/21 08:00 05/26/21 08:24 05/26/21 08:49 Temperature 96.9 F L Pulse Rate 75 79 83 Respiratory Rate 22 H Blood Pressure 137/63 Pulse Oximetry 95 100 97 05/26/21 10:00
--- NOTE | 2021-05-26 11:35 | PM.IMPN ---
Progress Note: A&P Assessment and Plan (1) Ileus, unspecified: Code(s): K56.7 - Ileus, unspecified Status: Acute Assessment and Plan: Patient developed n/v overnight on 05/20. KUB 05/21 showing severely distended gas-filled colon. CT Abd/Pelvis showing prominent gaseous distention of the transverse colon without thumbprinting or wall thickening or pneumatosis. There is a moderately prominent amount of fecal material in the colon. No bowel obstruction is evident. He was made NPO and NGT placed. Dulcolax suppositories and Reglan added. NGT out and currently on clear liquid diet. He is having BMs. GI following and appreciate their input. Resume Miralax. Will follow diet recommendation per GI (2) Electrolyte abnormality: Code(s): E87.8 - Other disorders of electrolyte and fluid balance, not elsewhere classified Status: Acute Assessment and Plan: Potassium dropped to 2.2. Mag 1.8 replace. Calcium 5.3 with albumin 2.1. Corrected 6.8. Replace calcium given the ileus. Phos level normal (3) Acute respiratory failure: Code(s): J96.00 - Acute respiratory failure, unspecified whether with hypoxia or hypercapnia Status: Acute Assessment and Plan: Patient developed cardiac arrest requiring intubation felt related to below with COPD, CHF and/or pneumonia. Was intubated 05/12/21. Some difficulty but ultimately patient able to be extubated May 18. He did require BiPAP that evening due to increasing work of breathing but that has since improved. He is down to 2 L O2 nasal cannula. CXR as mentioned below. He is wearing the BiPAP at night mostly. Continue to wean oxygen as tolerated. Continue bronchodilators, Advair. Speech therapy evaluation noted. (4) Cardiac arrest: Code(s): I46.9 - Cardiac arrest, cause unspecified Status: Acute Assessment and Plan: Patient on the evening of 05/12 called out and was found the BiPAP disconnected. His HR was in the 30's. Staff assessment showing no pulse so CPR started. Epi given x 3 and bicarb x1 with high quality CPR with return of ROSC. He was down for 8 minutes. Patient intubated. QT was prolonged. CT brain showing no acute findings. Troponin noted but felt related to the Code. No known seizure-like activity. Patient placed on Keppra post-code but no evidence of seizures and patient recovered so Keppra stopped. Cardiac arrest most likely related to respiratory event as his BiPAP was pulled apart and patient went into bradycardic and pulseless arrest. Recovering well. Cardiology following the patient. (5) Bacteremia: Code(s): R78.81 - Bacteremia Status: Acute Assessment and Plan: CXR 05/21 reviewed and showing hazy opacities throughout both lungs. Last fevers were on 05/15/21. Patient re-cultured on 05/16 with BCx (1of2) growing oxacillin sensitive Staphylococcus aureus. Sputum Cx 05/16 growing stenotrophomonas. Cefepime started 05/17 [id number] and changed to Levaquin on 05/20/21. Vanco started 05/17 at 1230pm and changed to Cefazolin on 05/24. WBC peaked at 19K and improved down to 12K. Repeat BCx negative. Continue Cefazolin. DC Levaquin (6) Syncopal episodes: Qualifiers: Syncope type: unspecified Qualified Code(s): R55 - Syncope and collapse Code(s): R55 - Syncope and collapse Status: Acute Assessment and Plan: Multiple syncopal episodes prior to admission with head trauma. CT brain showing no acute intracranial findings or fractures but old infarcts noted. EKG with atrial fibrillation with RVR. COVID test was negative. He did have TRACY to suggest dehydration so consider orthostatic HoTN (but not seen in ED although not sure if he received IV fluids prior). Also with AFib/RVR which also may be contributing to his syncopal episodes. No recurrence of events. Continue PT/OT. (7) Diabetes mellitus: Code(s): E11.9 - Type 2 diabetes mellitus without complications Status: Acute Ass
[2021-05-26 12:37] LABS: Glucose Point of Care 213 mg/dl (65-105)
--- NOTE | 2021-05-26 14:37 | PM.PNCARD ---
Progress Note: A&P Assessment and Plan (1) Atrial fibrillation with rapid ventricular response: Code(s): I48.91 - Unspecified atrial fibrillation Status: Resolved Assessment and Plan: Patient had atrial fibrillation with RVR which improved with IV amiodarone. Has maintained sinus rhythm for the last several days. Tolerating advancing diet for his ileus; will change IV amiodarone to p.o. Continue metoprolol Anticoagulation has been on hold since 05/20 due to occult blood in the stool and concern for possible surgery for ileus. Currently on a heparin drip, will change to Xarelto if no surgery planned and okay with GI. (2) Lower extremity edema: Code(s): R60.0 - Localized edema Status: Acute Assessment and Plan: Patient appears volume overloaded. Getting furosemide 20 mg IV push daily. Will increase creased to b.i.d.. (3) Ileus, unspecified: Code(s): K56.7 - Ileus, unspecified Status: Acute (4) Hypokalemia: Code(s): E87.6 - Hypokalemia Status: Acute Assessment and Plan: Add po Kcl 20 mil equivalents b.i.d.. Correcting hypokalemia may help his ileus as well. (5) QT prolongation: Code(s): R94.31 - Abnormal electrocardiogram [ECG] [EKG] Status: Acute Assessment and Plan: Had QT prolongation while on sotalol which has been discontinued. Avoid sotalol. EKG from 05/24/2021 was reviewed personally, NSR rate 72, QTC 384 milliseconds, acceptable. (6) CAD (coronary artery disease): Qualifiers: Coronary Disease-Associated Artery/Lesion type: unspecified vessel or lesion type [place] vs. transplanted heart: unspecified whether [place] or transplanted heart Associated angina: unspecified whether angina present Qualified Code(s): I25.10 - Atherosclerotic heart disease of [place] coronary artery without angina pectoris Code(s): I25.10 - Atherosclerotic heart disease of [place] coronary artery without angina pectoris Status: Acute Assessment and Plan: No active ischemic symptoms. Continue low-dose aspirin, statin. Beta-rosita. (7) Acute respiratory failure: Code(s): J96.00 - Acute respiratory failure, unspecified whether with hypoxia or hypercapnia Status: Acute Assessment and Plan: Required intubation earlier this hospitalization. Further management per primary hospitalist team. Respiratory arrest reportedly secondary to apparent decoupling from BiPAP resulting in severe bradycardia resolved with oxygenation and intubation. Sotalol discontinued. (8) TRACY (acute kidney injury): Code(s): N17.9 - Acute kidney failure, unspecified Status: Acute Assessment and Plan: Stable thus far Continue to follow. Creatinine is stable (9) Anemia: Qualifiers: Anemia type: other cause Other causes of anemia: chronic disease, other Qualified Code(s): D63.8 - Anemia in other chronic diseases classified elsewhere Code(s): D64.9 - Anemia, unspecified Status: Acute Assessment and Plan: Stable, continue to monitor H&H. GI consultation noted. Anemia chronic disease no evidence of active bleed. Subjective Date/time seen: 05/26/21 14:37 Interval history: ADmitted 05/09/2020with syncope, acute kidney injury. Subsequently found to have an ileus. Has persistent atrial fibrillation, rapid ventricular response on admission. History of CAD. Date of service: 05/19/2021 Interval history: Patient is in atrial fibrillation with RVR, heart rates in the 140s. He is lying down down in the bed, alert. Denies chest pain. Date of Service 05/20/2021: Patient remains in in atrial fibrillation, ventricular rates have improved to 100s. At present, he is alert. Denies chest pain or shortness of breath at rest. On telemetry, he is in atrial fibrillation with heart rates in 100s. Date of service 05/21/2021: In sinus rhythm but has been vomiting and has a bowel o
[2021-05-26 16:27] LABS: Glucose Point of Care 207 mg/dl (65-105)
[2021-05-26] MEDS: INSULIN ASPART (*BKC) 100 UNITS/ML SUB-Q ×2 (16:42→16:53)
[2021-05-26] MEDS: AMIODARONE HCL 200 MG TABLET PO (16:54)
[2021-05-26] MEDS: POTASSIUM CHLORIDE 20 MEQ TABLET.ER PO (16:54)
[2021-05-26 17:54] LABS: Partial Thromboplastin Time 127.1 SECONDS (22.3-36.8)
[2021-05-26 20:44] LABS: Glucose Point of Care 98 mg/dl (65-105)
[2021-05-27] VITALS (17 sets, daily range): BP systolic 75–132; BP diastolic 32–89; PULSE 70–137; RESP 13–20; TEMP 36.1–37; O2SAT 95–100
[2021-05-27 01:21] LABS: Partial Thromboplastin Time > 200.0 SECONDS (22.3-36.8)
[2021-05-27] MEDS: LEVALBUTEROL HFA (*SP) 15 GM INHALER 2 PUFF INHALATION ×4 (01:54→20:17)
[2021-05-27] MEDS: METOCLOPRAMIDE HCL INJ 10 MG/2 ML VIAL 5 MG IV PUSH ×3 (02:37→17:12)
[2021-05-27] MEDS: HEPARIN SOD/D5W 100 UNITS/ML 25,000 UNITS/250 ML BAG 7 UNITS IV CONT (02:37)
[2021-05-27] MEDS: ceFAZolin 2 GM/D5W 50 ML 2 GM/50 ML BAG IVPB ×3 (05:10→20:05)
[2021-05-27] MEDS: CENTRAL LINE FLUSH 10 ML IV PUSH ×4 (05:10→20:12)
[2021-05-27 05:30] LABS: Glucose Point of Care 99 mg/dl (65-105)
[2021-05-27] MEDS: FLUTICASONE/SALMETEROL 115-21 MCG INHALER 1 PUFF 2 PUFF INHALATION ×2 (08:30→20:16)
[2021-05-27 08:46] LABS: Glucose Point of Care 114 mg/dl (65-105)
[2021-05-27] MEDS: PANTOPRAZOLE SODIUM IV 40 MG VIAL IV PUSH ×2 (09:12→19:59)
[2021-05-27] MEDS: methylPREDNISolone SOD SUCC 40 MG VIAL IV PUSH (09:12)
[2021-05-27] MEDS: FUROSEMIDE INJ 40 MG/4 ML VIAL 20 MG IV PUSH ×2 (09:12→17:11)
[2021-05-27] MEDS: POTASSIUM CHLORIDE 20 MEQ TABLET.ER PO ×2 (09:13→17:11)
[2021-05-27] MEDS: ASPIRIN 81 MG ENTERIC TABLET PO (09:13)
[2021-05-27] MEDS: ATORVASTATIN 40 MG TABLET BY MOUTH (09:13)
[2021-05-27] MEDS: polyethylene glycoL 3350 17 GM POWD.PACK PO ×2 (09:13→17:12)
[2021-05-27] MEDS: AMIODARONE HCL 200 MG TABLET PO (09:18)
--- NOTE | 2021-05-27 10:00 | PM.IMPN ---
Progress Note: A&P Assessment and Plan (1) Ileus, unspecified: Code(s): K56.7 - Ileus, unspecified Status: Acute Assessment and Plan: Patient developed n/v overnight on 05/20. KUB 05/21 showing severely distended gas-filled colon. CT Abd/Pelvis showing prominent gaseous distention of the transverse colon without thumbprinting or wall thickening or pneumatosis. There is a moderately prominent amount of fecal material in the colon. No bowel obstruction is evident. He was made NPO and NGT placed. Dulcolax suppositories and Reglan added. NGT out and currently on low-fiber diet. Patient had a bowel movement. GI following and appreciate their input. Resume Miralax. Will follow diet recommendation per GI (2) Electrolyte abnormality: Code(s): E87.8 - Other disorders of electrolyte and fluid balance, not elsewhere classified Status: Acute Assessment and Plan: Potassium dropped to 2.2. Mag 1.8 replace. Calcium 5.3 with albumin 2.1. Corrected 6.8. Replace calcium given the ileus. Phos level normal (3) Acute respiratory failure: Code(s): J96.00 - Acute respiratory failure, unspecified whether with hypoxia or hypercapnia Status: Acute Assessment and Plan: Patient developed cardiac arrest requiring intubation felt related to below with COPD, CHF and/or pneumonia. Was intubated 05/12/21. Some difficulty but ultimately patient able to be extubated May 18. He did require BiPAP that evening due to increasing work of breathing but that has since improved. He is down to 2 L O2 nasal cannula. CXR as mentioned below. He is wearing the BiPAP at night mostly. Continue to wean oxygen as tolerated. Continue bronchodilators, Advair. Speech therapy evaluation noted. Continue to wean off oxygen patient on nasal cannula (4) Cardiac arrest: Code(s): I46.9 - Cardiac arrest, cause unspecified Status: Acute Assessment and Plan: Patient on the evening of 05/12 called out and was found the BiPAP disconnected. His HR was in the 30's. Staff assessment showing no pulse so CPR started. Epi given x 3 and bicarb x1 with high quality CPR with return of ROSC. He was down for 8 minutes. Patient intubated. QT was prolonged. CT brain showing no acute findings. Troponin noted but felt related to the Code. No known seizure-like activity. Patient placed on Keppra post-code but no evidence of seizures and patient recovered so Keppra stopped. Cardiac arrest most likely related to respiratory event as his BiPAP was pulled apart and patient went into bradycardic and pulseless arrest. Recovering well. Cardiology following the patient. (5) Bacteremia: Code(s): R78.81 - Bacteremia Status: Acute Assessment and Plan: CXR 05/21 reviewed and showing hazy opacities throughout both lungs. Last fevers were on 05/15/21. Patient re-cultured on 05/16 with BCx (1of2) growing oxacillin sensitive Staphylococcus aureus. Sputum Cx 05/16 growing stenotrophomonas. Cefepime started 05/17 [id number] and changed to Levaquin on 05/20/21. Vanco started 05/17 at 1230pm and changed to Cefazolin on 05/24. WBC peaked at 19K and improved down to 12K. Repeat BCx negative. Continue Cefazolin. DC Levaquin Recommend 2 weeks total of IV antibiotics (6) Syncopal episodes: Qualifiers: Syncope type: unspecified Qualified Code(s): R55 - Syncope and collapse Code(s): R55 - Syncope and collapse Status: Acute Assessment and Plan: Multiple syncopal episodes prior to admission with head trauma. CT brain showing no acute intracranial findings or fractures but old infarcts noted. EKG with atrial fibrillation with RVR. COVID test was negative. He did have TRACY to suggest dehydration so consider orthostatic HoTN (but not seen in ED although not sure if he received IV fluids prior). Also with AFib/RVR which also may be contributing to his syncopal episodes. No recurrence of events. Continue PT/OT. (7) Diabetes mellitus:
[2021-05-27 10:19] LABS: Partial Thromboplastin Time > 200.0 SECONDS (22.3-36.8)
--- NOTE | 2021-05-27 10:36 | WPDGIPROGNO ---
Progress Note: A&P Assessment and Plan (1) Abdominal distension: Code(s): R14.0 - Abdominal distension (gaseous) Status: Acute Assessment and Plan: clinically doing well, tolerating diet and cardiology is planning to switch to oral meds, ok to resume his blood thinner per cardiology recommendations (now on heparin gtt) continue bowel regimen he can follow-up office in about 6 weeks, then we can reassess his clinical status and probably schedule a colonoscopy in 2-3 months as outpatient since never had one and had FOBT + with ileus during this hospitalization [place], call if questions (2) Ileus, unspecified: Code(s): K56.7 - Ileus, unspecified Status: Acute Assessment and Plan: clinically doing well hb has been stable, no signs of overt gib and he is on heparin gtt (3) Bacteremia: Code(s): R78.81 - Bacteremia Status: Acute Assessment and Plan: on antibiotics for Stenotrophomonas maltophilia, repeat culture negative (4) Cardiac arrest: Code(s): I46.9 - Cardiac arrest, cause unspecified Status: Acute Assessment and Plan: on admission and required brief intubation, cardiology on board and still on amiodarone gtt- plan to switch to oral now that he is tolerating diet (5) Acute respiratory failure: Code(s): J96.00 - Acute respiratory failure, unspecified whether with hypoxia or hypercapnia Status: Acute Assessment and Plan: briefly intubated, this has improved and doing much better, comfortable (6) Anemia: Qualifiers: Anemia type: other cause Other causes of anemia: chronic disease, other Qualified Code(s): D63.8 - Anemia in other chronic diseases classified elsewhere Code(s): D64.9 - Anemia, unspecified Status: Acute Assessment and Plan: probably multifactorial, low but has been stable patient is on heparin gtt- plan to start oral AC Subjective Date/time seen: 05/27/21 10:36 Interval history: no GI issues and tolerating soft diet, also having BM's Review of Systems Review of Systems: All systems reviewed & are unremarkable except as noted in HPI and below Exam Const: Other: ill appearing but more comfortable, good spirits and sitting up in chair HENMT: General nose exam: Normal nares present Eyes: Sclera: sclerae normal Neck: Neck: supple Resp: Effort & Inspection: normal respiratory effort Auscultation: wheezes (improving) Cardio: Rate: regular rate GI: Inspection: distended GI Palp: Yes Soft to palpation, No Tenderness to palpation present (GI) and No Guarding due to palpation present (GI) Auscultation: normal bowel sounds Other: no rebound, no guarding Urinary Catheter: Urinary Catheter: patent and draining Skin: General skin exam: no rashes or lesions noted Neuro: Speech: normal speech Extrem: General: normal to inspection Psych: Mental Status: mental status grossly normal Objective Data Vital Signs Vital Signs: Vital Signs - 24 hr 05/26/21 12:00 05/26/21 12:53 05/26/21 14:00 Temperature 96.9 F L Pulse Rate 81 79 79 Respiratory Rate 22 H Blood Pressure 118/90 Pulse Oximetry 95 98 05/26/21 16:00 05/26/21 16:26 05/26/21 18:00 Temperature 96.8 F L Pulse Rate 77 76 78 Respiratory Rate 22 H Blood Pressure 152/50 H Pulse Oximetry 95 100 05/26/21 19:28 05/26/21 19:56 05/26/21 20:00 Temperature 97 F L Pulse Rate 86 84 Respiratory Rate 18 Blood Pressure 128/48 L Pulse Oximetry 99 97 99 05/26/21 20:05 05/26/21 22:00 05/27/21 00:00 Temperature 97.1 F L Pulse Rate 87 84 75 Respiratory Rate 16 Blood Pressure 125/52 L Pulse Oximetry 100 05/27/21 00:32 05/27/21 01:59 05/27/21 02:00 Temperature Pulse Rate 75 109 H 103 H Respiratory Rate 18 18 Blood Pressure Pulse Oximetry 97 97 05/27/21 04:00 05/27/21 06:00 05/27/21 08:00 Temperature 96.9 F L 98.6 F Pulse Rate 102 H 98 100 Respirator
[2021-05-27] MEDS: INSULIN ASPART (*BKC) 100 UNITS/ML SUB-Q ×2 (12:17→17:11)
[2021-05-27 12:23] LABS: Glucose Point of Care 219 mg/dl (65-105)
--- NOTE | 2021-05-27 13:29 | PM.PNCARD ---
Progress Note: A&P Assessment and Plan (1) Atrial fibrillation with rapid ventricular response: Code(s): I48.91 - Unspecified atrial fibrillation Status: Resolved Assessment and Plan: Patient had atrial fibrillation with RVR which improved with IV amiodarone. Had maintained sinus rhythm for the last several days, change to p.o. amiodarone yesterday but now back in AFib RVR. Resume IV amiodarone. Continue metoprolol Anticoagulation has been on hold since 05/20 due to occult blood in the stool and concern for possible surgery for ileus. Currently on a heparin drip, will change to Xarelto if no surgery planned and okay with GI. (2) Lower extremity edema: Code(s): R60.0 - Localized edema Status: Acute Assessment and Plan: Patient appears volume overloaded. Increased furosemide she IV push to b.i.d.. Check BMP in morning (3) Ileus, unspecified: Code(s): K56.7 - Ileus, unspecified Status: Acute Assessment and Plan: Slow improvement (4) Hypokalemia: Code(s): E87.6 - Hypokalemia Status: Acute Assessment and Plan: Add po Kcl 20 mil equivalents b.i.d.. Correcting hypokalemia may help his ileus as well. (5) QT prolongation: Code(s): R94.31 - Abnormal electrocardiogram [ECG] [EKG] Status: Acute Assessment and Plan: Had QT prolongation while on sotalol which has been discontinued. Avoid sotalol. EKG from 05/24/2021: QTC 384 milliseconds, acceptable. (6) CAD (coronary artery disease): Qualifiers: Coronary Disease-Associated Artery/Lesion type: unspecified vessel or lesion type [place] vs. transplanted heart: unspecified whether [place] or transplanted heart Associated angina: unspecified whether angina present Qualified Code(s): I25.10 - Atherosclerotic heart disease of [place] coronary artery without angina pectoris Code(s): I25.10 - Atherosclerotic heart disease of [place] coronary artery without angina pectoris Status: Acute Assessment and Plan: No active ischemic symptoms. Continue low-dose aspirin, statin. Beta-rosita. (7) Acute respiratory failure: Code(s): J96.00 - Acute respiratory failure, unspecified whether with hypoxia or hypercapnia Status: Acute Assessment and Plan: Required intubation earlier this hospitalization. Further management per primary hospitalist team. Respiratory arrest reportedly secondary to apparent decoupling from BiPAP resulting in severe bradycardia resolved with oxygenation and intubation. Sotalol discontinued. (8) TRACY (acute kidney injury): Code(s): N17.9 - Acute kidney failure, unspecified Status: Acute Assessment and Plan: Stable thus far Continue to follow. Creatinine is stable (9) Anemia: Qualifiers: Anemia type: other cause Other causes of anemia: chronic disease, other Qualified Code(s): D63.8 - Anemia in other chronic diseases classified elsewhere Code(s): D64.9 - Anemia, unspecified Status: Acute Assessment and Plan: Stable, Check H&H in a.m. GI consultation noted. Anemia chronic disease no evidence of active bleed. Subjective Date/time seen: 05/27/21 13:30 Interval history: ADmitted 05/09/2020with syncope, acute kidney injury. Subsequently found to have an ileus. Has persistent atrial fibrillation, rapid ventricular response on admission. History of CAD. Date of service: 05/19/2021 Interval history: Patient is in atrial fibrillation with RVR, heart rates in the 140s. He is lying down down in the bed, alert. Denies chest pain. Date of Service 05/20/2021: Patient remains in in atrial fibrillation, ventricular rates have improved to 100s. At present, he is alert. Denies chest pain or shortness of breath at rest. On telemetry, he is in atrial fibrillation with heart rates in 100s. Date of service 05/21/2021: In sinus rhythm but has been vomiting and has a bow
[2021-05-27] MEDS: AMIODARONE 150 MG/D5W 100 ML 150 MG/100 ML BAG 600 MG IV CONT (14:28)
[2021-05-27] MEDS: AMIODARONE 360 MG/D5W 200 ML 360 MG/200 ML BAG 33.33 MG IV CONT (14:48)
[2021-05-27 16:29] LABS: Glucose Point of Care 251 mg/dl (65-105)
[2021-05-27] MEDS: RIVAROXABAN 20 MG TABLET PO (17:11)
[2021-05-27] MEDS: AMIODARONE 360 MG/D5W 200 ML 360 MG/200 ML BAG 16.67 MG IV CONT (19:57)
[2021-05-27] MEDS: METOPROLOL TARTRATE 50 MG TAB PO (19:59)
[2021-05-27 20:19] LABS: Glucose Point of Care 231 mg/dl (65-105)
[2021-05-28] VITALS (18 sets, daily range): BP systolic 107–150; BP diastolic 55–72; PULSE 90–133; RESP 20–24; TEMP 36.6–36.9; O2SAT 24–99
[2021-05-28] MEDS: LEVALBUTEROL HFA (*SP) 15 GM INHALER 2 PUFF INHALATION ×4 (02:24→19:28)
--- NOTE | 2021-05-28 02:26 | PCRCNOTE ---
Pt states that he does not want to wear BiPAP because it was very uncomfortable last night. He was advised to let the nurse know if he feels short of breath so we can get him on the BiPAP.
[2021-05-28] MEDS: ceFAZolin 2 GM/D5W 50 ML 2 GM/50 ML BAG IVPB ×3 (03:49→20:06)
[2021-05-28] MEDS: METOCLOPRAMIDE HCL INJ 10 MG/2 ML VIAL 5 MG IV PUSH ×3 (03:50→17:10)
[2021-05-28 04:27] LABS: Anion Gap 17 mmol/L (8-16); Blood Urea Nitrogen 16 mg/dL (9-20); Calcium 7.3 mg/dL (8.4-10.2); Carbon Dioxide 30 mmol/L (22-30); Chloride 87 mmol/L (98-107); Estimated CRCL calculation 75 ml/min; Estimated Glomerular Filt Rate > 60; Glucose 277 mg/dL (65-110); Sodium 134 mmol/L (137-145)
[2021-05-28] MEDS: AMIODARONE 360 MG/D5W 200 ML 360 MG/200 ML BAG 16.67 MG IV CONT ×2 (08:29→20:05)
[2021-05-28] MEDS: PANTOPRAZOLE SODIUM IV 40 MG VIAL IV PUSH ×2 (08:31→20:07)
[2021-05-28] MEDS: FUROSEMIDE INJ 40 MG/4 ML VIAL 20 MG IV PUSH ×2 (08:31→17:09)
[2021-05-28] MEDS: POTASSIUM CHLORIDE 20 MEQ TABLET 40 MEQ PO (08:32)
[2021-05-28] MEDS: ATORVASTATIN 40 MG TABLET BY MOUTH (08:32)
[2021-05-28] MEDS: POTASSIUM CHLORIDE 20 MEQ TABLET.ER PO ×2 (08:32→17:11)
[2021-05-28] MEDS: methylPREDNISolone SOD SUCC 40 MG VIAL IV PUSH (08:32)
[2021-05-28] MEDS: METOPROLOL TARTRATE 50 MG TAB PO ×3 (08:32→20:07)
[2021-05-28] MEDS: polyethylene glycoL 3350 17 GM POWD.PACK PO ×2 (08:32→17:09)
[2021-05-28] MEDS: ASPIRIN 81 MG ENTERIC TABLET PO (08:32)
[2021-05-28 08:40] LABS: Glucose Point of Care 140 mg/dl (65-105)
--- NOTE | 2021-05-28 08:45 | PM.PNCARD ---
Progress Note: A&P Assessment and Plan (1) Atrial fibrillation with rapid ventricular response: Code(s): I48.91 - Unspecified atrial fibrillation Status: Resolved Assessment and Plan: Patient had atrial fibrillation with RVR which improved with IV amiodarone. Had maintained sinus rhythm for the last several days, was shifted to p.o. amiodarone and went back into AFib with RVR. Now back on IV amiodarone. Remains in AFib RVR on amiodarone drip Increase metoprolol to 50 mg p.o. Q 8 hours with holding parameters. Xarelto has been resumed at this point. Monitor for signs and symptoms of bleeding. Trend H&H daily. (2) Lower extremity edema: Code(s): R60.0 - Localized edema Status: Acute Assessment and Plan: Patient appears volume overloaded. Continue diuresis with 20 mg furosemide IV b.i.d. Compression stockings Continue to check BMP daily (3) Ileus, unspecified: Code(s): K56.7 - Ileus, unspecified Status: Acute Assessment and Plan: Slow improvement (4) Hypokalemia: Code(s): E87.6 - Hypokalemia Status: Acute Assessment and Plan: Add po Kcl 20 mil equivalents b.i.d.. Potassium 3.0 this morning, he was given an extra 40 mEq of potassium p.o.. (5) QT prolongation: Code(s): R94.31 - Abnormal electrocardiogram [ECG] [EKG] Status: Acute Assessment and Plan: Had QT prolongation while on sotalol which has been discontinued. Avoid sotalol. EKG from 05/24/2021: QTC 384 milliseconds, acceptable. (6) CAD (coronary artery disease): Qualifiers: Associated angina: unspecified whether angina present Coronary Disease-Associated Artery/Lesion type: unspecified vessel or lesion type [place] vs. transplanted heart: unspecified whether [place] or transplanted heart Qualified Code(s): I25.10 - Atherosclerotic heart disease of [place] coronary artery without angina pectoris Code(s): I25.10 - Atherosclerotic heart disease of [place] coronary artery without angina pectoris Status: Acute Assessment and Plan: No active ischemic symptoms. Continue low-dose aspirin, statin. Beta-rosita. (7) Acute respiratory failure: Code(s): J96.00 - Acute respiratory failure, unspecified whether with hypoxia or hypercapnia Status: Acute Assessment and Plan: Required intubation earlier this hospitalization. Further management per primary hospitalist team. Respiratory arrest reportedly secondary to apparent decoupling from BiPAP resulting in severe bradycardia resolved with oxygenation and intubation. Sotalol discontinued. (8) TRACY (acute kidney injury): Code(s): N17.9 - Acute kidney failure, unspecified Status: Acute Assessment and Plan: Stable thus far Continue to follow. Creatinine is stable (9) Anemia: Qualifiers: Anemia type: other cause Other causes of anemia: chronic disease, other Qualified Code(s): D63.8 - Anemia in other chronic diseases classified elsewhere Code(s): D64.9 - Anemia, unspecified Status: Acute Assessment and Plan: Stable, trend H&H daily. GI consultation noted. Anemia chronic disease no evidence of active bleed. Subjective Date/time seen: 05/28/21 08:45 Interval history: ADmitted 05/09/2020with syncope, acute kidney injury. Subsequently found to have an ileus. Has persistent atrial fibrillation, rapid ventricular response on admission. History of CAD. Date of service: 05/19/2021 Interval history: Patient is in atrial fibrillation with RVR, heart rates in the 140s. He is lying down down in the bed, alert. Denies chest pain. Date of Service 05/20/2021: Patient remains in in atrial fibrillation, ventricular rates have improved to 100s. At present, he is alert. Denies chest pain or shortness of breath at rest. On telemetry, he is in atrial fibrillation with heart rates in 100s. Date of service 05/21/2021: In sin
[2021-05-28] MEDS: FLUTICASONE/SALMETEROL 115-21 MCG INHALER 1 PUFF 2 PUFF INHALATION ×2 (09:09→19:28)
--- NOTE | 2021-05-28 10:26 | PM.IMPN ---
Progress Note: A&P Assessment and Plan (1) Ileus, unspecified: Code(s): K56.7 - Ileus, unspecified Status: Acute Assessment and Plan: Patient developed n/v overnight on 05/20. KUB 05/21 showing severely distended gas-filled colon. CT Abd/Pelvis showing prominent gaseous distention of the transverse colon without thumbprinting or wall thickening or pneumatosis. There is a moderately prominent amount of fecal material in the colon. No bowel obstruction is evident. He was made NPO and NGT placed. Dulcolax suppositories and Reglan added. NGT out and currently on low-fiber diet. Patient having bowel movements. GI following and appreciate their input. Continue Miralax. Patient to follow up with GI after discharge. (2) Electrolyte abnormality: Code(s): E87.8 - Other disorders of electrolyte and fluid balance, not elsewhere classified Status: Acute Assessment and Plan: Potassium low at times and was replaced. Potassium 3.0 so will replace again. Mg not repeated today but 2.6 on 05/26. Phos normal on 05/25 Calcium was 5.3 with albumin 2.1 (corrected 6.8). Calcium replaced and now 7.3 today Follow electrolytes and replace as needed. (3) Acute respiratory failure: Code(s): J96.00 - Acute respiratory failure, unspecified whether with hypoxia or hypercapnia Status: Acute Assessment and Plan: Patient developed cardiac arrest requiring intubation felt related to below with COPD, CHF and/or pneumonia. Was intubated 05/12/21. Some difficulty but ultimately patient able to be extubated 05/18/21. He did require BiPAP that evening due to increasing work of breathing but that has since improved. He is down to 2 L O2 nasal cannula. CXR as mentioned below. He is wearing the BiPAP intermittently - compliace was encouraged. Continue to wean oxygen as tolerated. Continue bronchodilators, Advair. Speech therapy evaluation noted. (4) Cardiac arrest: Code(s): I46.9 - Cardiac arrest, cause unspecified Status: Acute Assessment and Plan: Patient on the evening of 05/12 called out and was found the BiPAP disconnected. His HR was in the 30's. Staff assessment showing no pulse so CPR started. Epi given x 3 and bicarb x1 with high quality CPR with return of ROSC. He was down for 8 minutes. Patient intubated. QT was prolonged. CT brain showing no acute findings. Troponin noted but felt related to the Code. No known seizure-like activity. Patient placed on Keppra post-code but no evidence of seizures and patient recovered so Keppra stopped. Cardiac arrest most likely related to respiratory event as his BiPAP was pulled apart and patient became bradycardic and then pulseless arrest. Recovering well. Cardiology following the patient. (5) Bacteremia: Code(s): R78.81 - Bacteremia Status: Acute Assessment and Plan: CXR 05/21 reviewed and showing hazy opacities throughout both lungs. Last fevers were on 05/15/21. Patient re-cultured on 05/16 with BCx (1of2) growing oxacillin sensitive Staphylococcus aureus. Sputum Cx 05/16 growing stenotrophomonas. Cefepime started 05/17 [id number] and changed to Levaquin on 05/20/21. Vanco started 05/17 at 1230pm and changed to Cefazolin on 05/24. WBC peaked at 19K and improved down to 12K. Repeat BCx negative. Continue Cefazolin. Recommend 2 weeks total of IV antibiotics (6) Syncopal episodes: Qualifiers: Syncope type: unspecified Qualified Code(s): R55 - Syncope and collapse Code(s): R55 - Syncope and collapse Status: Acute Assessment and Plan: Multiple syncopal episodes prior to admission with head trauma. CT brain showing no acute intracranial findings or fractures but old infarcts noted. EKG with atrial fibrillation with RVR. COVID test was negative. He did have TRACY to suggest dehydration so consider orthostatic HoTN (but not seen in ED although not sure if he received IV fluids prior). Also with AFib/RVR which also may be contributing
[2021-05-28] MEDS: INSULIN ASPART (*BKC) 100 UNITS/ML SUB-Q (12:31)
--- NOTE | 2021-05-28 13:21 | PCNFU ---
Nutrition Follow-Up Complete: Inadequate Oral Intake as related to mechanical ventilation as evidenced by NPO. Goal: Meet estimanted nutritional needs Pt is progressing towards goal Pt current nutrition is Low fiber/low residue diet and dietary supplement Last recorded weight is 123.2 kg, stable. Bowel Motility: +BM 05/28 reported Labs Reviewed: Na 134, K 3.0, Ca 7.3, Glu 277, APTT >200.00 Meds Noted: nexterone, lipitor, ancef, lasix, novolog, reglan, protonix, miralax, Kcl Skin: right 1st toe abrasion Additional Notes: Current nutrition is a low fiber/low residue diet with reported intake of 100% and 50% x4. PO intake appears to have improved. RDN placed orders to add a dietary supplement of Ensure Compact BID to provide an additional 220kcal and 9g of protein to increase caloric intake. Agree with diet orders at this time. Will continue to follow. Will monitor every 5 days.
[2021-05-28] MEDS: rOPINIRole HCL 1 MG TABLET PO ×2 (13:28→17:21)
[2021-05-28] MEDS: CENTRAL LINE FLUSH 10 ML IV PUSH ×2 (13:29→20:14)
[2021-05-28] MEDS: RIVAROXABAN 20 MG TABLET PO (17:10)
[2021-05-28] MEDS: FERROUS SULFATE 324 MG TABLET PO (17:21)
[2021-05-28 17:29] LABS: Hematocrit 24.3 % (42.0-52.0); Hemoglobin 7.8 g/dL (14.0-18.0); Mean Corpuscular HGB Conc 32.1 g/dl (32-36); Mean Corpuscular Hemoglobin 28.8 pg (26-34); Mean Corpuscular Volume 89.7 fl (80-100); Mean Platelet Volume 10.2 fl (7.4-10.4); Platelet Count Result 308 k/mm3 (150-375); Red Blood Count 2.71 M/mm3 (4.6-6.20); Red Cell Distribution Width 17.2 % (11.5-14.5)
[2021-05-28 17:59] LABS: Glucose Point of Care 329 mg/dl (65-105)
[2021-05-28 18:00] LABS: Glucose Point of Care 167 mg/dl (65-105)
[2021-05-28] MEDS: MELATONIN 5 MG TABLET PO (20:09)
[2021-05-28 20:23] LABS: Glucose Point of Care 297 mg/dl (65-105)
[2021-05-29] VITALS (16 sets, daily range): BP systolic 111–139; BP diastolic 44–76; PULSE 85–121; RESP 20–24; TEMP 36.5–37; O2SAT 95–97
[2021-05-29] MEDS: ceFAZolin 2 GM/D5W 50 ML 2 GM/50 ML BAG IVPB ×3 (03:39→21:14)
[2021-05-29] MEDS: METOCLOPRAMIDE HCL INJ 10 MG/2 ML VIAL 5 MG IV PUSH ×3 (03:40→21:22)
[2021-05-29] MEDS: METOPROLOL TARTRATE 50 MG TAB PO ×3 (05:26→21:15)
[2021-05-29 06:16] LABS: Alanine Aminotransferase 11 U/L (4-50); Albumin Level 3.1 g/dL (3.5-5.1); Alkaline Phosphatase 78 U/L (38-126); Anion Gap 8 mmol/L (8-16); Aspartate Amino Transferase 24 U/L (17-59); Bilirubin,Total 0.6 mg/dL (0.2-1.3); Blood Urea Nitrogen 15 mg/dL (9-20); Calcium 7.5 mg/dL (8.4-10.2); Carbon Dioxide 31 mmol/L (22-30); Chloride 90 mmol/L (98-107); Estimated CRCL calculation 75 ml/min; Estimated Glomerular Filt Rate > 60; Glucose 247 mg/dL (65-110); Magnesium 2.2 mg/dL (1.6-2.3); Phosphorus 2.9 mg/dL (2.5-4.5); Potassium 3.3 mmol/L (3.4-5.0); Sodium 129 mmol/L (137-145)
[2021-05-29 08:01] LABS: Glucose Point of Care 156 mg/dl (65-105)
[2021-05-29] MEDS: AMIODARONE 360 MG/D5W 200 ML 360 MG/200 ML BAG 16.67 MG IV CONT ×2 (08:20→20:23)
[2021-05-29] MEDS: POTASSIUM CHLORIDE 20 MEQ TABLET 40 MEQ PO (08:21)
[2021-05-29] MEDS: ASPIRIN 81 MG ENTERIC TABLET PO (08:23)
[2021-05-29] MEDS: FERROUS SULFATE 324 MG TABLET PO ×2 (08:23→16:14)
[2021-05-29] MEDS: POTASSIUM CHLORIDE 20 MEQ TABLET.ER PO ×2 (08:24→16:14)
[2021-05-29] MEDS: PANTOPRAZOLE SODIUM IV 40 MG VIAL IV PUSH ×2 (08:24→21:15)
[2021-05-29] MEDS: FUROSEMIDE INJ 40 MG/4 ML VIAL 20 MG IV PUSH (08:25)
[2021-05-29] MEDS: rOPINIRole HCL 1 MG TABLET PO ×3 (08:26→16:15)
[2021-05-29] MEDS: ATORVASTATIN 40 MG TABLET BY MOUTH (08:27)
[2021-05-29] MEDS: CENTRAL LINE FLUSH 10 ML IV PUSH ×3 (08:29→21:18)
[2021-05-29] MEDS: LEVALBUTEROL HFA (*SP) 15 GM INHALER 2 PUFF INHALATION ×3 (08:58→20:04)
[2021-05-29] MEDS: FLUTICASONE/SALMETEROL 115-21 MCG INHALER 1 PUFF 2 PUFF INHALATION ×2 (08:58→20:09)
[2021-05-29] MEDS: polyethylene glycoL 3350 17 GM POWD.PACK PO ×2 (09:17→16:14)
[2021-05-29] MEDS: CYANOCOBALAMIN 1,000 MCG TABLET 1000 MCG PO (09:17)
--- NOTE | 2021-05-29 10:06 | PM.PNCARD ---
Progress Note: A&P Assessment and Plan (1) Atrial fibrillation with rapid ventricular response: Code(s): I48.91 - Unspecified atrial fibrillation Status: Resolved Assessment and Plan: Patient had atrial fibrillation with RVR, has been resumed on IV amiodarone. Had maintained sinus rhythm for the last several days, was switched to p.o. amiodarone and went back into AFib with RVR. Now back on IV amiodarone. Continue IV amiodarone for now, and if heart rates are reasonably controlled tomorrow, may switch to p.o. amiodarone. Anticipate shorter-term amiodarone treatment. Continue metoprolol tartrate at 50 mg p.o. Q 8 hours with holding parameters. Anticoagulation with rivaroxaban. Monitor for signs and symptoms of bleeding. Monitor H&H. (2) Lower extremity edema: Code(s): R60.0 - Localized edema Status: Acute Assessment and Plan: Patient appears volume overloaded. Continue diuresis with IV furosemide. Compression stockings. Keep legs elevated Monitor BMP (3) Ileus, unspecified: Code(s): K56.7 - Ileus, unspecified Status: Acute Assessment and Plan: Slow improvement; has been able to eat soft diet now (4) Hypokalemia: Code(s): E87.6 - Hypokalemia Status: Acute Assessment and Plan: Supplement potassium as necessary. (5) QT prolongation: Code(s): R94.31 - Abnormal electrocardiogram [ECG] [EKG] Status: Acute Assessment and Plan: Had QT prolongation while on sotalol which has been discontinued. Avoid sotalol. EKG from 05/24/2021: QTC 384 milliseconds, acceptable. (6) CAD (coronary artery disease): Qualifiers: Coronary Disease-Associated Artery/Lesion type: unspecified vessel or lesion type [place] vs. transplanted heart: unspecified whether [place] or transplanted heart Associated angina: unspecified whether angina present Qualified Code(s): I25.10 - Atherosclerotic heart disease of [place] coronary artery without angina pectoris Code(s): I25.10 - Atherosclerotic heart disease of [place] coronary artery without angina pectoris Status: Acute Assessment and Plan: No active ischemic symptoms. Continue low-dose aspirin, statin. Beta-rosita. (7) Acute respiratory failure: Code(s): J96.00 - Acute respiratory failure, unspecified whether with hypoxia or hypercapnia Status: Acute Assessment and Plan: Required intubation earlier this hospitalization. Further management per primary hospitalist team. Respiratory arrest reportedly secondary to apparent decoupling from BiPAP resulting in severe bradycardia resolved with oxygenation and intubation. Sotalol discontinued. (8) TRACY (acute kidney injury): Code(s): N17.9 - Acute kidney failure, unspecified Status: Acute Assessment and Plan: Stable thus far Continue to follow. Creatinine is stable (9) Anemia: Qualifiers: Anemia type: other cause Other causes of anemia: chronic disease, other Qualified Code(s): D63.8 - Anemia in other chronic diseases classified elsewhere Code(s): D64.9 - Anemia, unspecified Status: Acute Assessment and Plan: Stable, monitor H&H. (10) Physical deconditioning: Code(s): R53.81 - Other malaise Status: Acute Assessment and Plan: Patient had prolonged hospitalization and is physically deconditioned. Continue PT OT. Patient would benefit from rehab. Subjective Date/time seen: 05/29/21 10:06 Interval history: ADmitted 05/09/2020with syncope, acute kidney injury. Subsequently found to have an ileus. Has persistent atrial fibrillation, rapid ventricular response on admission. History of CAD. Date of service: 05/19/2021 Interval history: Patient is in atrial fibrillation with RVR, heart rates in the 140s. He is lying down down in the bed, alert. Denies chest pain. Date of Service 05/20/2021: Patient remains in in [facility]
[2021-05-29 11:57] LABS: Glucose Point of Care 178 mg/dl (65-105)
--- NOTE | 2021-05-29 14:01 | PM.IMPN ---
Progress Note: A&P Assessment and Plan (1) Ileus, unspecified: Code(s): K56.7 - Ileus, unspecified Status: Acute Assessment and Plan: Patient developed n/v overnight on 05/20. KUB 05/21 showing severely distended gas-filled colon. CT Abd/Pelvis showing prominent gaseous distention of the transverse colon without thumbprinting or wall thickening or pneumatosis. There was prominent amount of fecal material in the colon. No bowel obstruction was evident. He was made NPO and NGT placed. Dulcolax suppositories and Reglan added. He had some improvement so NGT out and currently on low-fiber diet. Patient having bowel movements. GI following and appreciate their input. Continue Miralax but cut back Reglan. Patient to follow up with GI after discharge. (2) Electrolyte abnormality: Code(s): E87.8 - Other disorders of electrolyte and fluid balance, not elsewhere classified Status: Acute Assessment and Plan: Potassium low at times and was replaced. Potassium 3.3 so will replace again. Mg 2.2. Phos normal Calcium was 5.3 with albumin 2.1 (corrected 6.8). Calcium replaced and now 7.5 today Follow electrolytes and replace as needed. (3) Acute respiratory failure: Code(s): J96.00 - Acute respiratory failure, unspecified whether with hypoxia or hypercapnia Status: Acute Assessment and Plan: Patient developed cardiac arrest requiring intubation felt related to below with COPD, CHF and/or pneumonia. Was intubated 05/12/21. Some difficulty but ultimately patient able to be extubated 05/18/21. He did require BiPAP that evening due to increasing work of breathing but that has since improved. Speech therapy assessed patient and diet adjusted. He was weaned to room air. He is wearing the BiPAP intermittently - compliance was encouraged. Continue bronchodilators, Advair. (4) Cardiac arrest: Code(s): I46.9 - Cardiac arrest, cause unspecified Status: Acute Assessment and Plan: Patient on the evening of 05/12 called out and was found the BiPAP disconnected. His HR was in the 30's. Staff assessment showing no pulse so CPR started. Epi given x 3 and bicarb x1 with high quality CPR with return of ROSC. He was down for 8 minutes. Patient intubated. QT was prolonged. CT brain showing no acute findings. Troponin noted but felt related to the Code. No known seizure-like activity. Patient placed on Keppra post-code but no evidence of seizures and patient recovered so Keppra stopped. Cardiac arrest most likely related to respiratory event as his BiPAP was pulled apart and patient became bradycardic and then pulseless arrest. Recovering well. Cardiology following the patient. (5) Bacteremia: Code(s): R78.81 - Bacteremia Status: Acute Assessment and Plan: CXR today reviewed and showing mild airspace opacities in the lower lung zones with improvement on the left. Last fevers were on 05/15/21. Patient re-cultured on 05/16 with BCx (1of2) growing oxacillin sensitive Staphylococcus aureus. Sputum Cx 05/16 growing stenotrophomonas. Cefepime started / at 1230p and changed to Levaquin on 05/20/21 and completed 7 days. Vanco started 2/3 at 1230pm and changed to Cefazolin on 05/24. WBC peaked at 19K and now normal. Repeat BCx negative. Continue Cefazolin. Recommend 2 weeks total of IV antibiotics (6) Syncopal episodes: Qualifiers: Syncope type: unspecified Qualified Code(s): R55 - Syncope and collapse Code(s): R55 - Syncope and collapse Status: Acute Assessment and Plan: Multiple syncopal episodes prior to admission with head trauma. CT brain showing no acute intracranial findings or fractures but old infarcts noted. EKG with atrial fibrillation with RVR. COVID test was negative. He did have TRACY to suggest dehydration so consider orthostatic HoTN (but not seen in ED although not sure if he received IV fluids prior). Also with AFib/RVR which also may be contributin
[2021-05-29] MEDS: RIVAROXABAN 20 MG TABLET PO (16:15)
[2021-05-29 16:32] LABS: Glucose Point of Care 198 mg/dl (65-105)
[2021-05-29] MEDS: MELATONIN 5 MG TABLET PO (21:15)
[2021-05-29 21:18] LABS: Glucose Point of Care 192 mg/dl (65-105)
[2021-05-30] VITALS (20 sets, daily range): BP systolic 103–126; BP diastolic 38–103; PULSE 64–139; RESP 20–24; TEMP 36.6–37.2; O2SAT 92–98
[2021-05-30] MEDS: ceFAZolin 2 GM/D5W 50 ML 2 GM/50 ML BAG IVPB ×3 (05:01→20:12)
[2021-05-30] MEDS: CENTRAL LINE FLUSH 10 ML IV PUSH ×3 (05:02→21:07)
[2021-05-30] MEDS: METOPROLOL TARTRATE 50 MG TAB PO ×2 (05:02→13:19)
[2021-05-30 05:19] LABS: Mean Corpuscular HGB Conc 29.1 g/dl (32-36); Mean Corpuscular Hemoglobin 28.2 pg (26-34); Mean Corpuscular Volume 96.6 fl (80-100); Mean Platelet Volume 10.4 fl (7.4-10.4); Platelet Count Result 230 k/mm3 (150-375); Red Blood Count 2.38 M/mm3 (4.6-6.20); Red Cell Distribution Width 17.9 % (11.5-14.5)
[2021-05-30 05:42] LABS: Hemoglobin 6.7 g/dL (14.0-18.0)
[2021-05-30 07:48] LABS: Anion Gap 5 mmol/L (8-16); Blood Urea Nitrogen 12 mg/dL (9-20); Calcium 7.9 mg/dL (8.4-10.2); Carbon Dioxide 29 mmol/L (22-30); Chloride 96 mmol/L (98-107); Estimated CRCL calculation 75 ml/min; Estimated Glomerular Filt Rate > 60; Glucose 207 mg/dL (65-110); Potassium 3.4 mmol/L (3.4-5.0); Sodium 130 mmol/L (137-145)
[2021-05-30 08:16] LABS: Hematocrit 25.6 % (42.0-52.0); Hemoglobin 7.8 g/dL (14.0-18.0)
[2021-05-30] MEDS: LEVALBUTEROL HFA (*SP) 15 GM INHALER 2 PUFF INHALATION ×3 (08:19→21:03)
[2021-05-30] MEDS: FLUTICASONE/SALMETEROL 115-21 MCG INHALER 1 PUFF 2 PUFF INHALATION ×2 (08:19→21:04)
[2021-05-30 09:04] LABS: Glucose Point of Care 170 mg/dl (65-105)
[2021-05-30] MEDS: AMIODARONE 360 MG/D5W 200 ML 360 MG/200 ML BAG 16.67 MG IV CONT ×2 (10:20→21:06)
[2021-05-30] MEDS: PANTOPRAZOLE SODIUM IV 40 MG VIAL IV PUSH ×2 (10:30→20:12)
[2021-05-30] MEDS: POTASSIUM CHLORIDE 20 MEQ TABLET.ER PO ×2 (10:31→17:57)
[2021-05-30] MEDS: CYANOCOBALAMIN 1,000 MCG TABLET 1000 MCG PO (10:32)
[2021-05-30] MEDS: ASPIRIN 81 MG ENTERIC TABLET PO (10:32)
[2021-05-30] MEDS: rOPINIRole HCL 1 MG TABLET PO ×3 (10:32→17:59)
[2021-05-30] MEDS: ATORVASTATIN 40 MG TABLET BY MOUTH (10:32)
[2021-05-30] MEDS: FERROUS SULFATE 324 MG TABLET PO ×2 (10:32→17:56)
--- NOTE | 2021-05-30 11:39 | PM.IMPN ---
Progress Note: A&P Assessment and Plan (1) Lower extremity edema: Code(s): R60.0 - Localized edema Status: Acute Assessment and Plan: Patient more edematous in the legs and even with sacral edema. Change back to IV Lasix and advance dose. Fluid restrict. On Xarelto so DVT less likely but will check dopplers. (2) Ileus, unspecified: Code(s): K56.7 - Ileus, unspecified Status: Acute Assessment and Plan: Patient developed n/v overnight on 05/20. KUB 05/21 showing severely distended gas-filled colon. CT Abd/Pelvis showing prominent gaseous distention of the transverse colon without thumbprinting or wall thickening or pneumatosis. There was prominent amount of fecal material in the colon. No bowel obstruction was evident. He was made NPO and NGT placed. Dulcolax suppositories and Reglan added. He had some improvement so NGT out and currently on low-fiber diet. Patient having bowel movements. GI following and appreciate their input. Continue Miralax but continue to decrease Reglan. Patient to follow up with GI after discharge. (3) Electrolyte abnormality: Code(s): E87.8 - Other disorders of electrolyte and fluid balance, not elsewhere classified Status: Acute Assessment and Plan: Potassium low at times and was replaced. Potassium 3.4 and he is on replacement. Calcium was 5.3 with albumin 2.1 (corrected 6.8). Calcium replaced and now 7.9 today Sodium low at 130 but felt related to the excessive free water. Fluid restrict Follow electrolytes and replace as needed. (4) Acute respiratory failure: Code(s): J96.00 - Acute respiratory failure, unspecified whether with hypoxia or hypercapnia Status: Acute Assessment and Plan: Patient developed cardiac arrest requiring intubation felt related to below with COPD, CHF and/or pneumonia. Was intubated 05/12/21. Some difficulty but ultimately patient able to be extubated 05/18/21. He did require BiPAP that evening due to increasing work of breathing but that has since improved. Speech therapy assessed patient and diet adjusted. He was weaned to room air. He is wearing the BiPAP intermittently - compliance was encouraged. Continue bronchodilators, Advair. (5) Cardiac arrest: Code(s): I46.9 - Cardiac arrest, cause unspecified Status: Acute Assessment and Plan: Patient on the evening of 05/12 called out and was found the BiPAP disconnected. His HR was in the 30's. Staff assessment showing no pulse so CPR started. Epi given x 3 and bicarb x1 with high quality CPR with return of ROSC. He was down for 8 minutes. Patient intubated. QT was prolonged. CT brain showing no acute findings. Troponin noted but felt related to the Code. No known seizure-like activity. Patient placed on Keppra post-code but no evidence of seizures and patient recovered so Keppra stopped. Cardiac arrest most likely related to respiratory event as his BiPAP was pulled apart and patient became bradycardic and then pulseless arrest. Recovering well. Cardiology following the patient. (6) Bacteremia: Code(s): R78.81 - Bacteremia Status: Acute Assessment and Plan: CXR today reviewed and showing mild airspace opacities in the lower lung zones with improvement on the left. Last fevers were on 05/15/21. Patient re-cultured on 05/16 with BCx (1of2) growing oxacillin sensitive Staphylococcus aureus. Sputum Cx 2/ growing stenotrophomonas. Cefepime started 2/ at 1230p and changed to Levaquin on 05/20/21 and completed 7 days. Vanco started 2/3 at 1230pm and changed to Cefazolin on 05/24. WBC peaked at 19K and now normal. Repeat BCx negative. Continue Cefazolin through tomorrow. (7) Syncopal episodes: Qualifiers: Syncope type: unspecified Qualified Code(s): R55 - Syncope and collapse Code(s): R55 - Syncope and collapse Status: Acute Assessment and Plan: Multiple syncopal episodes prior to admission with tiffany
[2021-05-30] MEDS: FUROSEMIDE INJ 40 MG/4 ML VIAL IV PUSH ×2 (12:14→17:57)
[2021-05-30 12:58] LABS: Glucose Point of Care 156 mg/dl (65-105)
[2021-05-30] MEDS: EMPAGLIFLOZIN 10 MG TABLET PO (13:19)
[2021-05-30] MEDS: METOPROLOL TARTRATE 25 MG TABLET PO (15:00)
[2021-05-30 16:57] LABS: Glucose Point of Care 146 mg/dl (65-105)
[2021-05-30] MEDS: RIVAROXABAN 20 MG TABLET PO (17:58)
--- NOTE | 2021-05-30 18:38 | PM.PNCARD ---
Progress Note: A&P Assessment and Plan (1) Atrial fibrillation with rapid ventricular response: Code(s): I48.91 - Unspecified atrial fibrillation Status: Resolved Assessment and Plan: Patient had atrial fibrillation with RVR, remains on IV amiodarone. Heart rate still suboptimally controlled. Will try to transition to oral amiodarone tomorrow depending on heart rate control. Had previously maintained sinus rhythm for several days, but after switching to p.o. amiodarone and went back into AFib with RVR. Now back on IV amiodarone. Continue IV amiodarone for now, and if heart rates are reasonably controlled tomorrow, may switch to p.o. amiodarone. Anticipate shorter-term amiodarone treatment. Increase metoprolol tartrate to 75 mg p.o. Q 8 hours with holding parameters. Anticoagulation with rivaroxaban. Monitor for signs and symptoms of bleeding. Monitor H&H. (2) Lower extremity edema: Code(s): R60.0 - Localized edema Status: Acute Assessment and Plan: Patient appears volume overloaded. Continue diuresis with IV furosemide. Compression stockings. Keep legs elevated Monitor BMP Lower extremity venous Dopplers pending. (3) Ileus, unspecified: Code(s): K56.7 - Ileus, unspecified Status: Acute Assessment and Plan: Slow improvement; has been able to eat soft diet now (4) Hypokalemia: Code(s): E87.6 - Hypokalemia Status: Acute Assessment and Plan: Supplement potassium as necessary. (5) QT prolongation: Code(s): R94.31 - Abnormal electrocardiogram [ECG] [EKG] Status: Acute Assessment and Plan: Had QT prolongation while on sotalol which has been discontinued. Avoid sotalol. EKG from 05/24/2021: QTC 384 milliseconds, acceptable. (6) CAD (coronary artery disease): Qualifiers: Coronary Disease-Associated Artery/Lesion type: unspecified vessel or lesion type [place] vs. transplanted heart: unspecified whether [place] or transplanted heart Associated angina: unspecified whether angina present Qualified Code(s): I25.10 - Atherosclerotic heart disease of [place] coronary artery without angina pectoris Code(s): I25.10 - Atherosclerotic heart disease of [place] coronary artery without angina pectoris Status: Acute Assessment and Plan: No active ischemic symptoms. Continue low-dose aspirin, statin. Beta-rosita. (7) Acute respiratory failure: Code(s): J96.00 - Acute respiratory failure, unspecified whether with hypoxia or hypercapnia Status: Acute Assessment and Plan: Required intubation earlier this hospitalization. Further management per primary hospitalist team. Respiratory arrest reportedly secondary to apparent decoupling from BiPAP resulting in severe bradycardia resolved with oxygenation and intubation. Sotalol discontinued. (8) TRACY (acute kidney injury): Code(s): N17.9 - Acute kidney failure, unspecified Status: Acute Assessment and Plan: Stable thus far Continue to follow. Creatinine is stable (9) Anemia: Qualifiers: Anemia type: other cause Other causes of anemia: chronic disease, other Qualified Code(s): D63.8 - Anemia in other chronic diseases classified elsewhere Code(s): D64.9 - Anemia, unspecified Status: Acute Assessment and Plan: Stable, monitor H&H. (10) Physical deconditioning: Code(s): R53.81 - Other malaise Status: Acute Assessment and Plan: Patient had prolonged hospitalization and is physically deconditioned. Continue PT OT. Patient would benefit from rehab. Subjective Date/time seen: Date of service: 05/30/21 18:38 Follow-up for atrial fibrillation with rapid ventricular response, CAD, syncope, acute injury, ANGEL LUIS on CPAP, respiratory failure, ileus Interval history: ADmitted 05/09/2020 with syncope, acute kidney injury. Subsequently found to have an ileus. Has persisten
[2021-05-30] MEDS: MELATONIN 5 MG TABLET PO (20:12)
[2021-05-30 20:52] LABS: Glucose Point of Care 181 mg/dl (65-105)
[2021-05-30] MEDS: METOPROLOL TARTRATE 25 MG TABLET 75 MG PO (21:06)
[2021-05-31] VITALS (21 sets, daily range): BP systolic 97–140; BP diastolic 49–75; PULSE 73–110; RESP 18–26; TEMP 36.4–36.9; O2SAT 92–100
[2021-05-31] MEDS: ceFAZolin 2 GM/D5W 50 ML 2 GM/50 ML BAG IVPB ×2 (05:00→12:50)
[2021-05-31] MEDS: CENTRAL LINE FLUSH 10 ML IV PUSH ×3 (05:34→21:01)
[2021-05-31] MEDS: METOPROLOL TARTRATE 25 MG TABLET 75 MG PO ×3 (05:34→21:00)
[2021-05-31 07:12] LABS: Basophils Percent Auto 0.2 % (0.2-1.2); Eosinophils Absolute Auto 0.2 K/mm3 (0-0.3); Eosinophils Percent Auto 4.2 % (0-4.4); Hemoglobin 7.7 g/dL (14.0-18.0); Immature Granulocyte Absolute 0.02 K/mm3 (0.00-0.031); Immature Granulocyte Percent A 0.4 % (0-0.5); Lymphocytes Absolute Auto 0.44 K/mm3 (0.9-3.2); Lymphocytes Percent Auto 9.7 % (18.3-44.2); Mean Corpuscular HGB Conc 30.8 g/dl (32-36); Mean Corpuscular Hemoglobin 28.1 pg (26-34); Mean Corpuscular Volume 91.2 fl (80-100); Mean Platelet Volume 10.2 fl (7.4-10.4); Monocytes Absolute Auto 0.3 K/mm3 (0.1-0.6); Monocytes Percent Auto 7.3 % (2.6-8.5); Neutrophils Absolute Auto 3.6 K/mm3 (1.3-6.7); Neutrophils Percent Auto 78.2 % (45.5-73.1); Platelet Count Result 232 k/mm3 (150-375); Red Blood Count 2.74 M/mm3 (4.6-6.20); Red Cell Distribution Width 18.1 % (11.5-14.5); White Blood Count 4.5 K/mm3 (4.5-10.0)
[2021-05-31] MEDS: LEVALBUTEROL HFA (*SP) 15 GM INHALER 2 PUFF INHALATION ×3 (07:51→19:44)
[2021-05-31] MEDS: FLUTICASONE/SALMETEROL 115-21 MCG INHALER 1 PUFF 2 PUFF INHALATION ×2 (07:51→19:43)
[2021-05-31] MEDS: AMIODARONE 360 MG/D5W 200 ML 360 MG/200 ML BAG 16.67 MG IV CONT (08:38)
[2021-05-31] MEDS: PANTOPRAZOLE SODIUM IV 40 MG VIAL IV PUSH (08:39)
[2021-05-31] MEDS: ATORVASTATIN 40 MG TABLET BY MOUTH (08:39)
[2021-05-31] MEDS: EMPAGLIFLOZIN 10 MG TABLET PO (08:39)
[2021-05-31] MEDS: FERROUS SULFATE 324 MG TABLET PO ×2 (08:39→17:25)
[2021-05-31] MEDS: rOPINIRole HCL 1 MG TABLET PO ×3 (08:39→17:25)
[2021-05-31] MEDS: polyethylene glycoL 3350 17 GM POWD.PACK PO (08:39)
[2021-05-31] MEDS: ASPIRIN 81 MG ENTERIC TABLET PO (08:39)
[2021-05-31] MEDS: POTASSIUM CHLORIDE 20 MEQ TABLET.ER PO (08:39)
[2021-05-31] MEDS: CYANOCOBALAMIN 1,000 MCG TABLET 1000 MCG PO (08:40)
--- NOTE | 2021-05-31 08:47 | PM.PNCARD ---
Progress Note: A&P Assessment and Plan (1) Atrial fibrillation with rapid ventricular response: Code(s): I48.91 - Unspecified atrial fibrillation <QUYNH Lara - Last Filed: 05/31/21 14:13> Status: Resolved <QUYNH Lara - Last Filed: 05/31/21 14:13> Assessment and Plan: Patient had atrial fibrillation with RVR, remains on IV amiodarone. Heart rate still suboptimally controlled. Will try to transition to oral amiodarone tomorrow depending on heart rate control. Had previously maintained sinus rhythm for several days, but after switching to p.o. amiodarone and went back into AFib with RVR. Now back on IV amiodarone. HR has been reasonably controlled since last night - rate in the 80's and 90's consistently. Will shift him back to p.o. amiodarone today. Continue metoprolol tartrate to 75 mg p.o. Q 8 hours with holding parameters. Anticoagulation with rivaroxaban. Monitor for signs and symptoms of bleeding. Monitor H&H. <QUYNH Lara - Last Filed: 05/31/21 14:13> (2) Lower extremity edema: Code(s): R60.0 - Localized edema <QUYNH Lara - Last Filed: 05/31/21 14:13> Status: Acute <QUYNH Lara - Last Filed: 05/31/21 14:13> Assessment and Plan: Patient appears volume overloaded - Not improving. Continue diuresis with IV furosemide. Add Zaroxolyn 2.5 mg daily. Compression stockings. Keep legs elevated Monitor BMP Lower extremity venous Dopplers did not show any evidence of DVT <QUYNH Lara - Last Filed: 05/31/21 14:13> (3) Ileus, unspecified: Code(s): K56.7 - Ileus, unspecified <QUYNH Lara - Last Filed: 05/31/21 14:13> Status: Acute <QUYNH Lara - Last Filed: 05/31/21 14:13> Assessment and Plan: Slow improvement; has been able to eat soft diet now <QUYNH Lara - Last Filed: 05/31/21 14:13> (4) Hypokalemia: Code(s): E87.6 - Hypokalemia <QUYNH Lara - Last Filed: 05/31/21 14:13> Status: Acute <QUYNH Lara - Last Filed: 05/31/21 14:13> Assessment and Plan: Supplement potassium as necessary. <QUYNH Lara - Last Filed: 05/31/21 14:13> (5) QT prolongation: Code(s): R94.31 - Abnormal electrocardiogram [ECG] [EKG] <QUYNH Lara - Last Filed: 05/31/21 14:13> Status: Acute <QUYNH Lara - Last Filed: 05/31/21 14:13> Assessment and Plan: Had QT prolongation while on sotalol which has been discontinued. Avoid sotalol. EKG from 05/24/2021: QTC 384 milliseconds, acceptable. <QUYNH Lara - Last Filed: 05/31/21 14:13> (6) CAD (coronary artery disease): Qualifiers: Associated angina: unspecified whether angina present Coronary Disease-Associated Artery/Lesion type: unspecified vessel or lesion type [place] vs. transplanted heart: unspecified whether [place] or transplanted heart Qualified Code(s): I25.10 - Atherosclerotic heart disease of [place] coronary artery without angina pectoris <QUYNH Lara - Last Filed: 05/31/21 14:13> Code(s): I25.10 - Atherosclerotic heart disease of [place] coronary artery without angina pectoris <QUYNH Lara - Last Filed: 05/31/21 14:13> Status: Acute <QUYNH Lara - Last Filed: 05/31/21 14:13> Assessment and Plan: No active ischemic symptoms. Continue low-dose aspirin, statin. Beta-rosita. <QUYNH Lara Last Filed: 05/31/21 14:13> (7) Acute respiratory failure: Code(s): J96.00 - Acute respiratory failure, unspecified whether with hypoxia or hypercapnia <QUYNH Lara - Last Filed: 05/31/21 14:13> Status: Acute <QUYNH Lraa - Last Filed: 05/31/21 14:13> Assessment and Plan: Required intubation earlier this hospitalization.
[2021-05-31 08:51] LABS: Alanine Aminotransferase 20 U/L (4-50); Albumin Level 2.9 g/dL (3.5-5.1); Alkaline Phosphatase 70 U/L (38-126); Anion Gap 7 mmol/L (8-16); Aspartate Amino Transferase 46 U/L (17-59); Bilirubin,Total 0.5 mg/dL (0.2-1.3); Blood Urea Nitrogen 11 mg/dL (9-20); Calcium 7.6 mg/dL (8.4-10.2); Carbon Dioxide 31 mmol/L (22-30); Chloride 96 mmol/L (98-107); Estimated CRCL calculation 75 ml/min; Estimated Glomerular Filt Rate > 60; Glucose 136 mg/dL (65-110); Magnesium 2.1 mg/dL (1.6-2.3); Phosphorus 3.9 mg/dL (2.5-4.5); Potassium 3.1 mmol/L (3.4-5.0); Sodium 134 mmol/L (137-145)
[2021-05-31 09:07] LABS: Glucose Point of Care 126 mg/dl (65-105)
[2021-05-31 13:08] LABS: Glucose Point of Care 152 mg/dl (65-105)
--- NOTE | 2021-05-31 14:22 | PM.IMPN ---
Progress Note: A&P Assessment and Plan (1) Lower extremity edema: Code(s): R60.0 - Localized edema Status: Acute Assessment and Plan: Patient was more edematous in the legs and even with sacral edema. Venous doppler negative for DVT. He was changed back to IV Lasix. Fluid restrict. (2) Atrial fibrillation with rapid ventricular response: Code(s): I48.91 - Unspecified atrial fibrillation Status: Resolved Assessment and Plan: EKG on admission showing AFib. He was on Xarelto. Echo showing EF 65-70% with Grade II diastolic dysfunction. He was started on Amio drip to control rate but may have had a reaction to this in the past so Cardiology changed him to Sotalol but this was stopped due to the prolonged QT. Metoprolol was resumed. He was intermittently in/out of AFib so Flecainide added but now stopped and Amiodarone IV resumed. Xarelto held due to ileus but now resumed. Amiodarone drip stopped but resumed because of recurrent AFib. Tachycardic at times. Weaning to oral Amio today. Appreciate Cardiology input. (3) Ileus, unspecified: Code(s): K56.7 - Ileus, unspecified Status: Acute Assessment and Plan: Patient developed n/v overnight on 05/20. KUB 05/21 showing severely distended gas-filled colon. CT Abd/Pelvis showing prominent gaseous distention of the transverse colon without thumbprinting or wall thickening or pneumatosis. There was prominent amount of fecal material in the colon. No bowel obstruction was evident. He was made NPO and NGT placed. Dulcolax suppositories and Reglan added. He had some improvement so NGT out and currently on low-fiber diet. Patient having bowel movements. GI following and appreciate their input. Continue Miralax. Reglan stopped now. Patient to follow up with GI after discharge. (4) Electrolyte abnormality: Code(s): E87.8 - Other disorders of electrolyte and fluid balance, not elsewhere classified Status: Acute Assessment and Plan: Potassium low at times and was replaced. Potassium 3.1 and replacement was advnaced. Calcium was 5.3 with albumin 2.1 (corrected 6.8). Calcium replaced and now 7.6 today Sodium low at 130 but felt related to the excessive free water. Fluid restriction. Na 134 now Follow electrolytes and replace as needed. (5) Acute respiratory failure: Code(s): J96.00 - Acute respiratory failure, unspecified whether with hypoxia or hypercapnia Status: Acute Assessment and Plan: Patient developed cardiac arrest requiring intubation felt related to below with COPD, CHF and/or pneumonia. Was intubated 05/12/21. Some difficulty but ultimately patient able to be extubated 05/18/21. He did require BiPAP that evening due to increasing work of breathing but that has since improved. Speech therapy assessed patient and diet adjusted. He was weaned to room air. He is wearing the BiPAP intermittently - compliance was strongly encouraged. Continue bronchodilators, Advair. (6) Cardiac arrest: Code(s): I46.9 - Cardiac arrest, cause unspecified Status: Acute Assessment and Plan: Patient on the evening of 05/12 called out and was found the BiPAP disconnected. His HR was in the 30's. Staff assessment showing no pulse so CPR started. Epi given x 3 and bicarb x1 with high quality CPR with return of ROSC. He was down for 8 minutes. Patient intubated. QT was prolonged. CT brain showing no acute findings. Troponin noted but felt related to the Code. No known seizure-like activity. Patient placed on Keppra post-code but no evidence of seizures and patient recovered so Keppra stopped. Cardiac arrest most likely related to respiratory event as his BiPAP was pulled apart and patient became bradycardic and then pulseless arrest. Recovering well. Cardiology following the patient. (7) Bacteremia: Code(s): R78.81 - Bacteremia Status: Acute Assessment and Plan: CXR today reviewed and showing
[2021-05-31 17:13] LABS: Glucose Point of Care 144 mg/dl (65-105)
[2021-05-31] MEDS: AMIODARONE HCL 200 MG TABLET 400 MG PO (17:24)
[2021-05-31] MEDS: RIVAROXABAN 20 MG TABLET PO (17:25)
[2021-05-31] MEDS: POTASSIUM CHLORIDE 20 MEQ TABLET.ER 40 MEQ PO (17:25)
[2021-05-31] MEDS: FUROSEMIDE INJ 40 MG/4 ML VIAL IV PUSH (17:26)
[2021-05-31 20:25] LABS: Glucose Point of Care 153 mg/dl (65-105)
[2021-05-31] MEDS: MELATONIN 5 MG TABLET PO (20:53)
[2021-06-01] VITALS (19 sets, daily range): BP systolic 106–127; BP diastolic 50–84; PULSE 74–128; RESP 20–25; TEMP 35.6–36.6; O2SAT 96–100
[2021-06-01] MEDS: METOPROLOL TARTRATE 25 MG TABLET 75 MG PO ×3 (05:29→20:26)
[2021-06-01] MEDS: CENTRAL LINE FLUSH 10 ML IV PUSH ×3 (05:29→20:26)
[2021-06-01 05:54] LABS: Hematocrit 25.5 % (42.0-52.0); Hemoglobin 7.8 g/dL (14.0-18.0)
[2021-06-01 06:08] LABS: Anion Gap 5 mmol/L (8-16); Blood Urea Nitrogen 11 mg/dL (9-20); Calcium 7.7 mg/dL (8.4-10.2); Carbon Dioxide 33 mmol/L (22-30); Chloride 96 mmol/L (98-107); Estimated CRCL calculation 89 ml/min; Estimated Glomerular Filt Rate > 60; Glucose 124 mg/dL (65-110); Potassium 3.8 mmol/L (3.4-5.0); Sodium 134 mmol/L (137-145)
[2021-06-01] MEDS: FLUTICASONE/SALMETEROL 115-21 MCG INHALER 1 PUFF 2 PUFF INHALATION ×2 (08:11→19:27)
[2021-06-01] MEDS: LEVALBUTEROL HFA (*SP) 15 GM INHALER 2 PUFF INHALATION ×3 (08:11→19:27)
[2021-06-01] MEDS: POTASSIUM CHLORIDE 20 MEQ TABLET.ER 40 MEQ PO ×2 (08:33→16:38)
[2021-06-01] MEDS: polyethylene glycoL 3350 17 GM POWD.PACK PO (08:33)
[2021-06-01] MEDS: rOPINIRole HCL 1 MG TABLET PO ×3 (08:33→16:38)
[2021-06-01] MEDS: CYANOCOBALAMIN 1,000 MCG TABLET 1000 MCG PO (08:33)
[2021-06-01] MEDS: ATORVASTATIN 40 MG TABLET BY MOUTH (08:34)
[2021-06-01] MEDS: ASPIRIN 81 MG ENTERIC TABLET PO (08:34)
[2021-06-01] MEDS: AMIODARONE HCL 200 MG TABLET 400 MG PO ×2 (08:34→16:38)
[2021-06-01] MEDS: FERROUS SULFATE 324 MG TABLET PO ×2 (08:34→16:38)
[2021-06-01] MEDS: metOLazone 2.5 MG TABLET PO ×2 (08:34→08:35)
[2021-06-01] MEDS: FUROSEMIDE INJ 40 MG/4 ML VIAL IV PUSH ×2 (08:34→16:38)
[2021-06-01] MEDS: EMPAGLIFLOZIN 10 MG TABLET PO (08:35)
[2021-06-01] MEDS: PANTOPRAZOLE 40 MG TABLET PO (08:36)
[2021-06-01 08:51] LABS: Glucose Point of Care 119 mg/dl (65-105)
--- NOTE | 2021-06-01 09:52 | PM.PNCARD ---
Progress Note: A&P Assessment and Plan (1) Atrial fibrillation with rapid ventricular response: Code(s): I48.91 - Unspecified atrial fibrillation <QUYNH Lara - Last Filed: 06/01/21 13:02> Status: Resolved <QUYNH Lara - Last Filed: 06/01/21 13:02> Assessment and Plan: Patient had atrial fibrillation with RVR, remains on IV amiodarone. Heart rate still suboptimally controlled. Will try to transition to oral amiodarone tomorrow depending on heart rate control. Had previously maintained sinus rhythm for several days, but after switching to p.o. amiodarone and went back into AFib with RVR. Placed back on IV amiodarone and remained in atrial fibrillation but with rate controlled. Now back on oral amiodarone and maintaining reasonable rate control. Continue metoprolol tartrate to 75 mg p.o. Q 8 hours with holding parameters. Anticoagulation with rivaroxaban. Monitor for signs and symptoms of bleeding. Monitor H&H. <QUYNH Lara - Last Filed: 06/01/21 13:02> (2) Lower extremity edema: Code(s): R60.0 - Localized edema <QUYNH Lara - Last Filed: 06/01/21 13:02> Status: Acute <QUYNH Lara - Last Filed: 06/01/21 13:02> Assessment and Plan: Patient appears volume overloaded -some improvement today. Continue diuresis with IV furosemide and Zaroxolyn 2.5 mg daily Add spironolactone 25 mg daily Compression stockings. Keep legs elevated Monitor BMP daily. <QUYNH Lara - Last Filed: 06/01/21 13:02> (3) Ileus, unspecified: Code(s): K56.7 - Ileus, unspecified <QUYNH Lara - Last Filed: 06/01/21 13:02> Status: Acute <QUYNH Lara - Last Filed: 06/01/21 13:02> Assessment and Plan: Slow improvement; has been able to eat soft diet now <QUYNH Lara - Last Filed: 06/01/21 13:02> (4) Hypokalemia: Code(s): E87.6 - Hypokalemia <QUYNH Lara - Last Filed: 06/01/21 13:02> Status: Acute <QUYNH Lara - Last Filed: 06/01/21 13:02> Assessment and Plan: Supplement potassium as necessary. <QUYNH Lara - Last Filed: 06/01/21 13:02> (5) QT prolongation: Code(s): R94.31 - Abnormal electrocardiogram [ECG] [EKG] <QUYNH Lara - Last Filed: 06/01/21 13:02> Status: Acute <QUYNH Lara - Last Filed: 06/01/21 13:02> Assessment and Plan: Had QT prolongation while on sotalol which has been discontinued. Avoid sotalol. EKG from 05/24/2021: QTC 384 milliseconds, acceptable. <QUYNH Lara - Last Filed: 06/01/21 13:02> (6) CAD (coronary artery disease): Qualifiers: Associated angina: unspecified whether angina present Coronary Disease-Associated Artery/Lesion type: unspecified vessel or lesion type [place] vs. transplanted heart: unspecified whether [place] or transplanted heart Qualified Code(s): I25.10 - Atherosclerotic heart disease of [place] coronary artery without angina pectoris <QUYNH Lara - Last Filed: 06/01/21 13:02> Code(s): I25.10 - Atherosclerotic heart disease of [place] coronary artery without angina pectoris <QUYNH Lara - Last Filed: 06/01/21 13:02> Status: Acute <QUYNH Lara - Last Filed: 06/01/21 13:02> Assessment and Plan: No active ischemic symptoms. Continue low-dose aspirin, statin. Beta-rosita. <QUYNH Lara - Last Filed: 06/01/21 13:02> (7) Acute respiratory failure: Code(s): J96.00 - Acute respiratory failure, unspecified whether with hypoxia or hypercapnia <QUYNH Lara - Last Filed: 06/01/21 13:02> Status: Acute <QUYNH Lara - Last Filed: 06/01/21 13:02> Assessment and Plan: Required intubation earlier this hospitalization. Further management per primary ho
--- NOTE | 2021-06-01 11:47 | PCNFU ---
Nutrition Follow-Up Complete: Inadequate Oral Intake as related to mechanical ventilation as evidenced by NPO. Goal: Meet estimanted nutritional needs Pt is progressing towards goal Pt current nutrition is diabetic carb consistent, soft and bite sized, L6, low fiber (low residue) diet and dietary supplements Last recorded weight is 119.2 kg, down 4kg since last reported weight on 05/31/21. Bowel Motility: +BM 05/30 reported Labs Reviewed: hgb 7.8, hct 25.5, Ca 7.7, Na 134, Cl 96, CO2 33, Glu 124 Meds Noted: pacerone, lipitor, vitamin B12, jardiance, ferrous sulfate, lasix, zaroxolyn, lopressor, protonix, miralax, kcl, requip Skin: right 1st toe abrasion Additional Notes: Current nutrition is a diabetic carb consistent/soft and bite sized, L6/low fiber (low residue) diet and dietary supplements of Ensure Compact BID providing an additional 220kcal and 9g of protein. Pt is on a 1,200mL fluid restriction. Reported intake is 75% x3 and 100% x2. PO intake appears to be improving. Agree with diet orders at this time. Will continue to follow. Will monitor every 5 days
[2021-06-01 12:49] LABS: Glucose Point of Care 128 mg/dl (65-105)
[2021-06-01] MEDS: SPIRONOLACTONE 25 MG TABLET PO (14:19)
--- NOTE | 2021-06-01 16:26 | PM.IMPN ---
Progress Note: A&P Assessment and Plan (1) Lower extremity edema: Code(s): R60.0 - Localized edema Status: Acute Assessment and Plan: Patient was more edematous in the legs and even with sacral edema. Venous doppler negative for DVT. He was changed back to IV Lasix. Condition improving. Metolazone added. Continue fluid restriction. (2) Atrial fibrillation with rapid ventricular response: Code(s): I48.91 - Unspecified atrial fibrillation Status: Resolved Assessment and Plan: EKG on admission showing AFib. He was on Xarelto. Echo showing EF 65-70% with Grade II diastolic dysfunction. He was started on Amio drip to control rate but may have had a reaction to this in the past so Cardiology changed him to Sotalol but this was stopped due to the prolonged QT. Metoprolol was resumed. He was intermittently in/out of AFib so Flecainide added but now stopped and Amiodarone IV resumed. Xarelto held due to ileus but now resumed. Amiodarone drip stopped but resumed because of recurrent AFib. Has been changed to oral amiodarone now. Appreciate Cardiology input. Continue telemetry. (3) Ileus, unspecified: Code(s): K56.7 - Ileus, unspecified Status: Acute Assessment and Plan: Patient developed n/v overnight on 05/20. KUB 05/21 showing severely distended gas-filled colon. CT Abd/Pelvis showing prominent gaseous distention of the transverse colon without thumbprinting or wall thickening or pneumatosis. There was prominent amount of fecal material in the colon. No bowel obstruction was evident. He was made NPO and NGT placed. Dulcolax suppositories and Reglan added. He had some improvement so NGT out and currently on low-fiber diet. Patient having bowel movements. GI following and appreciate their input. Reglan stopped now. Continue MiraLax but decrease frequency. Patient to follow up with GI after discharge. (4) Electrolyte abnormality: Code(s): E87.8 - Other disorders of electrolyte and fluid balance, not elsewhere classified Status: Acute Assessment and Plan: Potassium low at times and was replaced. Potassium 3.8 today Calcium was 5.3 with albumin 2.1 (corrected 6.8). Calcium replaced and now 7.7 today Sodium low at 130 but felt related to the excessive free water. Fluid restriction. Na 134 now Follow electrolytes and replace as needed. (5) Acute respiratory failure: Code(s): J96.00 - Acute respiratory failure, unspecified whether with hypoxia or hypercapnia Status: Acute Assessment and Plan: Patient developed cardiac arrest requiring intubation felt related to below with COPD, CHF and/or pneumonia. Was intubated 05/12/21. Some difficulty but ultimately patient able to be extubated 05/18/21. He did require BiPAP that evening due to increasing work of breathing but that has since improved. Speech therapy assessed patient and diet adjusted. He was weaned to room air. He is wearing the BiPAP intermittently - compliance was strongly encouraged. Continue bronchodilators, Advair. (6) Cardiac arrest: Code(s): I46.9 - Cardiac arrest, cause unspecified Status: Acute Assessment and Plan: Patient on the evening of 05/12 called out and was found the BiPAP disconnected. His HR was in the 30's. Staff assessment showing no pulse so CPR started. Epi given x 3 and bicarb x1 with high quality CPR with return of ROSC. He was down for 8 minutes. Patient intubated. QT was prolonged. CT brain showing no acute findings. Troponin noted but felt related to the Code. No known seizure-like activity. Patient placed on Keppra post-code but no evidence of seizures and patient recovered so Keppra stopped. Cardiac arrest most likely related to respiratory event as his BiPAP was pulled apart and patient became bradycardic and then pulseless arrest. Recovering well. Cardiology following the patient. (7) Bacteremia: Code(s): R78.81 - Bacteremia Status:
[2021-06-01] MEDS: RIVAROXABAN 20 MG TABLET PO (16:38)
[2021-06-01 16:54] LABS: Glucose Point of Care 113 mg/dl (65-105)
[2021-06-01] MEDS: MELATONIN 5 MG TABLET PO (20:26)
[2021-06-01 21:03] LABS: Glucose Point of Care 205 mg/dl (65-105)
[2021-06-02] VITALS (20 sets, daily range): BP systolic 101–140; BP diastolic 39–86; PULSE 56–82; RESP 17–28; TEMP 35.9–36.8; O2SAT 59–100
[2021-06-02] MEDS: METOPROLOL TARTRATE 25 MG TABLET 75 MG PO ×3 (05:25→20:49)
[2021-06-02] MEDS: CENTRAL LINE FLUSH 10 ML IV PUSH ×3 (05:27→21:34)
[2021-06-02] MEDS: FLUTICASONE/SALMETEROL 115-21 MCG INHALER 1 PUFF 2 PUFF INHALATION ×2 (08:00→21:01)
[2021-06-02] MEDS: LEVALBUTEROL HFA (*SP) 15 GM INHALER 2 PUFF INHALATION ×3 (08:00→21:01)
[2021-06-02 09:27] LABS: Glucose Point of Care 114 mg/dl (65-105)
[2021-06-02] MEDS: ASPIRIN 81 MG ENTERIC TABLET PO (10:30)
[2021-06-02] MEDS: polyethylene glycoL 3350 17 GM POWD.PACK PO (10:31)
[2021-06-02] MEDS: SPIRONOLACTONE 25 MG TABLET PO (10:31)
[2021-06-02] MEDS: FUROSEMIDE INJ 40 MG/4 ML VIAL IV PUSH ×2 (10:31→18:29)
[2021-06-02] MEDS: EMPAGLIFLOZIN 10 MG TABLET PO (10:32)
[2021-06-02] MEDS: CYANOCOBALAMIN 1,000 MCG TABLET 1000 MCG PO (10:32)
[2021-06-02] MEDS: ATORVASTATIN 40 MG TABLET BY MOUTH (10:32)
[2021-06-02] MEDS: PANTOPRAZOLE 40 MG TABLET PO (10:32)
[2021-06-02] MEDS: AMIODARONE HCL 200 MG TABLET 400 MG PO (10:33)
[2021-06-02] MEDS: rOPINIRole HCL 1 MG TABLET PO ×3 (10:33→18:30)
[2021-06-02] MEDS: POTASSIUM CHLORIDE 20 MEQ TABLET.ER 40 MEQ PO ×2 (10:34→18:29)
[2021-06-02] MEDS: metOLazone 2.5 MG TABLET PO (10:35)
[2021-06-02] MEDS: FERROUS SULFATE 324 MG TABLET PO ×2 (10:35→18:29)
[2021-06-02] MEDS: ACETAMINOPHEN ELIXIR 325 MG/10.15 ML UDC 650 MG FEED TUBE (10:43)
--- NOTE | 2021-06-02 11:58 | PM.PNCARD ---
Progress Note: A&P Assessment and Plan (1) Atrial fibrillation with rapid ventricular response: Code(s): I48.91 - Unspecified atrial fibrillation Status: Resolved Assessment and Plan: Patient had atrial fibrillation with RVR, remains on IV amiodarone. Heart rate still suboptimally controlled. Will try to transition to oral amiodarone tomorrow depending on heart rate control. Had previously maintained sinus rhythm for several days, but after switching to p.o. amiodarone and went back into AFib with RVR. Placed back on IV amiodarone and remained in atrial fibrillation but with rate controlled. Reduce amiodarone down to 200 mg p.o. b.i.d.. He has been adequately loaded Continue metoprolol tartrate to 75 mg p.o. Q 8 hours with holding parameters. Anticoagulation with rivaroxaban. Monitor for signs and symptoms of bleeding. Monitor H&H. (2) Lower extremity edema: Code(s): R60.0 - Localized edema Status: Acute Assessment and Plan: Patient appears volume overloaded -some improvement today. Continue diuresis with IV furosemide and Zaroxolyn 2.5 mg daily Continue spironolactone 25 mg daily Compression stockings. Keep legs elevated Monitor BMP daily. (3) Ileus, unspecified: Code(s): K56.7 - Ileus, unspecified Status: Acute Assessment and Plan: Slow improvement; has been able to eat soft diet now (4) Hypokalemia: Code(s): E87.6 - Hypokalemia Status: Acute Assessment and Plan: Supplement potassium as necessary. (5) QT prolongation: Code(s): R94.31 - Abnormal electrocardiogram [ECG] [EKG] Status: Acute Assessment and Plan: Had QT prolongation while on sotalol which has been discontinued. Avoid sotalol. EKG from 05/24/2021: QTC 384 milliseconds, acceptable. (6) CAD (coronary artery disease): Qualifiers: Coronary Disease-Associated Artery/Lesion type: unspecified vessel or lesion type [place] vs. transplanted heart: unspecified whether [place] or transplanted heart Associated angina: unspecified whether angina present Qualified Code(s): I25.10 - Atherosclerotic heart disease of [place] coronary artery without angina pectoris Code(s): I25.10 - Atherosclerotic heart disease of [place] coronary artery without angina pectoris Status: Acute Assessment and Plan: No active ischemic symptoms. Continue low-dose aspirin, statin. Beta-rosita. (7) Acute respiratory failure: Code(s): J96.00 - Acute respiratory failure, unspecified whether with hypoxia or hypercapnia Status: Acute Assessment and Plan: Required intubation earlier this hospitalization. Further management per primary hospitalist team. Respiratory arrest reportedly secondary to apparent decoupling from BiPAP resulting in severe bradycardia resolved with oxygenation and intubation. Sotalol discontinued. (8) TRACY (acute kidney injury): Code(s): N17.9 - Acute kidney failure, unspecified Status: Acute Assessment and Plan: Stable thus far Continue to follow. Creatinine is stable (9) Anemia: Qualifiers: Anemia type: other cause Other causes of anemia: chronic disease, other Qualified Code(s): D63.8 - Anemia in other chronic diseases classified elsewhere Code(s): D64.9 - Anemia, unspecified Status: Acute Assessment and Plan: Stable, monitor H&H. (10) Physical deconditioning: Code(s): R53.81 - Other malaise Status: Acute Assessment and Plan: Patient had prolonged hospitalization and is physically deconditioned. Continue PT OT. Patient would benefit from rehab. Subjective Date/time seen: 06/02/21 11:58 Interval history: ADmitted 05/09/2020 with syncope, acute kidney injury. Subsequently found to have an ileus. Has persistent atrial fibrillation, rapid ventricular response on admission. History of CAD. Date of service: 05/19/2021 Interval h
[2021-06-02 12:56] LABS: Glucose Point of Care 167 mg/dl (65-105)
--- NOTE | 2021-06-02 14:43 | PM.IMPN ---
Progress Note: A&P Assessment and Plan (1) Lower extremity edema: Code(s): R60.0 - Localized edema Status: Acute Assessment and Plan: Patient was more edematous in the legs and even with sacral edema. Venous doppler negative for DVT. He was changed back to IV Lasix. Condition improving. Metolazone added. Continue fluid restriction. (2) Atrial fibrillation with rapid ventricular response: Code(s): I48.91 - Unspecified atrial fibrillation Status: Resolved Assessment and Plan: EKG on admission showing AFib. He was on Xarelto. Echo showing EF 65-70% with Grade II diastolic dysfunction. He was started on Amio drip to control rate but may have had a reaction to this in the past so Cardiology changed him to Sotalol but this was stopped due to the prolonged QT. Metoprolol was resumed. He was intermittently in/out of AFib so Flecainide added but now stopped and Amiodarone IV resumed. Xarelto held due to ileus but now resumed. Amiodarone drip stopped but resumed because of recurrent AFib. Has been changed to oral amiodarone now. Appreciate Cardiology input. Continue telemetry. (3) Ileus, unspecified: Code(s): K56.7 - Ileus, unspecified Status: Acute Assessment and Plan: Patient developed n/v overnight on 05/20. KUB 05/21 showing severely distended gas-filled colon. CT Abd/Pelvis showing prominent gaseous distention of the transverse colon without thumbprinting or wall thickening or pneumatosis. There was prominent amount of fecal material in the colon. No bowel obstruction was evident. He was made NPO and NGT placed. Dulcolax suppositories and Reglan added. He had some improvement so NGT out and currently on low-fiber diet. Patient having bowel movements. GI following and appreciate their input. Reglan stopped now. Continue MiraLax but decrease frequency. Patient to follow up with GI after discharge. (4) Electrolyte abnormality: Code(s): E87.8 - Other disorders of electrolyte and fluid balance, not elsewhere classified Status: Acute Assessment and Plan: Potassium low at times and was replaced. Replace as needed Calcium was 5.3 with albumin 2.1 (corrected 6.8). Calcium replaced and now 7.7 Sodium low at 130 but felt related to the excessive free water. Fluid restriction. Na 134 Follow electrolytes and replace as needed. (5) Acute respiratory failure: Code(s): J96.00 - Acute respiratory failure, unspecified whether with hypoxia or hypercapnia Status: Acute Assessment and Plan: Patient developed cardiac arrest requiring intubation felt related to below with COPD, CHF and/or pneumonia. Was intubated 05/12/21. Some difficulty but ultimately patient able to be extubated 05/18/21. He did require BiPAP that evening due to increasing work of breathing but that has since improved. Speech therapy assessed patient and diet adjusted. He was weaned to room air. He is wearing the BiPAP intermittently - compliance was strongly encouraged. Continue bronchodilators, Advair. (6) Cardiac arrest: Code(s): I46.9 - Cardiac arrest, cause unspecified Status: Acute Assessment and Plan: Patient on the evening of 05/12 called out and was found the BiPAP disconnected. His HR was in the 30's. Staff assessment showing no pulse so CPR started. Epi given x 3 and bicarb x1 with high quality CPR with return of ROSC. He was down for 8 minutes. Patient intubated. QT was prolonged. CT brain showing no acute findings. Troponin noted but felt related to the Code. No known seizure-like activity. Patient placed on Keppra post-code but no evidence of seizures and patient recovered so Keppra stopped. Cardiac arrest most likely related to respiratory event as his BiPAP was pulled apart and patient became bradycardic and then pulseless arrest. Recovering well. Cardiology following the patient. (7) Bacteremia: Code(s): R78.81 - Bacteremia Status: Acute
[2021-06-02 16:39] LABS: Glucose Point of Care 126 mg/dl (65-105)
[2021-06-02] MEDS: RIVAROXABAN 20 MG TABLET PO (18:30)
--- NOTE | 2021-06-02 18:58 | PC.NURSE ---
This patient, Zack Dai, was received from [[facility]/01 ] on 06/02/21 at 1845 to room 319. Patient/family oriented to unit policies and routines. call light in reach.
[2021-06-02] MEDS: AMIODARONE HCL 200 MG TABLET PO (20:48)
[2021-06-02] MEDS: MELATONIN 5 MG TABLET PO (20:48)
[2021-06-03] VITALS (16 sets, daily range): BP systolic 92–128; BP diastolic 36–70; PULSE 49–67; RESP 16–24; TEMP 36–36.3; O2SAT 96–100
[2021-06-03] MEDS: METOPROLOL TARTRATE 25 MG TABLET 75 MG PO ×3 (05:06→22:01)
[2021-06-03] MEDS: CENTRAL LINE FLUSH 10 ML IV PUSH ×3 (05:11→22:02)
[2021-06-03 05:34] LABS: Basophils Percent Auto 0.2 % (0.2-1.2); Eosinophils Absolute Auto 0.2 K/mm3 (0-0.3); Eosinophils Percent Auto 3.7 % (0-4.4); Hemoglobin 8.7 g/dL (14.0-18.0); Immature Granulocyte Absolute 0.02 K/mm3 (0.00-0.031); Immature Granulocyte Percent A 0.4 % (0-0.5); Lymphocytes Absolute Auto 0.78 K/mm3 (0.9-3.2); Lymphocytes Percent Auto 13.9 % (18.3-44.2); Mean Corpuscular HGB Conc 31.1 g/dl (32-36); Mean Corpuscular Hemoglobin 28.2 pg (26-34); Mean Corpuscular Volume 90.9 fl (80-100); Monocytes Absolute Auto 0.4 K/mm3 (0.1-0.6); Monocytes Percent Auto 6.6 % (2.6-8.5); Neutrophils Absolute Auto 4.2 K/mm3 (1.3-6.7); Neutrophils Percent Auto 75.2 % (45.5-73.1); Platelet Count Result 291 k/mm3 (150-375); Red Blood Count 3.08 M/mm3 (4.6-6.20); Red Cell Distribution Width 17.8 % (11.5-14.5); White Blood Count 5.6 K/mm3 (4.5-10.0)
[2021-06-03 05:46] LABS: Alanine Aminotransferase 18 U/L (4-50); Albumin Level 3.5 g/dL (3.5-5.1); Alkaline Phosphatase 97 U/L (38-126); Anion Gap 7 mmol/L (8-16); Aspartate Amino Transferase 36 U/L (17-59); Bilirubin,Total 0.9 mg/dL (0.2-1.3); Blood Urea Nitrogen 17 mg/dL (9-20); Calcium 8.8 mg/dL (8.4-10.2); Carbon Dioxide 36 mmol/L (22-30); Chloride 90 mmol/L (98-107); Estimated CRCL calculation 62 ml/min; Estimated Glomerular Filt Rate 55; Glucose 148 mg/dL (65-110); Sodium 133 mmol/L (137-145)
[2021-06-03 08:00] LABS: Glucose Point of Care 141 mg/dl (65-105)
[2021-06-03] MEDS: FLUTICASONE/SALMETEROL 115-21 MCG INHALER 1 PUFF 2 PUFF INHALATION ×2 (08:59→20:14)
[2021-06-03] MEDS: LEVALBUTEROL HFA (*SP) 15 GM INHALER 2 PUFF INHALATION ×3 (09:00→20:14)
[2021-06-03] MEDS: rOPINIRole HCL 1 MG TABLET PO ×3 (09:14→21:30)
[2021-06-03] MEDS: FUROSEMIDE INJ 40 MG/4 ML VIAL IV PUSH (09:15)
[2021-06-03] MEDS: metOLazone 2.5 MG TABLET PO (09:15)
[2021-06-03] MEDS: ASPIRIN 81 MG ENTERIC TABLET PO (09:15)
[2021-06-03] MEDS: PANTOPRAZOLE 40 MG TABLET PO (09:15)
[2021-06-03] MEDS: POTASSIUM CHLORIDE 20 MEQ TABLET.ER 40 MEQ PO ×2 (09:16→15:59)
[2021-06-03] MEDS: AMIODARONE HCL 200 MG TABLET PO ×2 (09:16→22:01)
[2021-06-03] MEDS: EMPAGLIFLOZIN 10 MG TABLET PO (09:19)
[2021-06-03] MEDS: FERROUS SULFATE 324 MG TABLET PO ×2 (09:19→15:59)
[2021-06-03] MEDS: CYANOCOBALAMIN 1,000 MCG TABLET 1000 MCG PO (09:19)
[2021-06-03] MEDS: ATORVASTATIN 40 MG TABLET BY MOUTH (09:19)
[2021-06-03] MEDS: SPIRONOLACTONE 25 MG TABLET PO (09:20)
--- NOTE | 2021-06-03 09:55 | PM.PNCARD ---
Progress Note: A&P Assessment and Plan (1) Atrial fibrillation with rapid ventricular response: Code(s): I48.91 - Unspecified atrial fibrillation Status: Resolved Assessment and Plan: Patient had atrial fibrillation with RVR, remains on IV amiodarone. Heart rate still suboptimally controlled. Will try to transition to oral amiodarone tomorrow depending on heart rate control. Had previously maintained sinus rhythm for several days, but after switching to p.o. amiodarone and went back into AFib with RVR. Placed back on IV amiodarone and remained in atrial fibrillation but with rate controlled. Reduce amiodarone down to 200 mg p.o. b.i.d.. He has been adequately loaded Continue metoprolol tartrate to 75 mg p.o. Q 8 hours with holding parameters. Anticoagulation with rivaroxaban. Monitor for signs and symptoms of bleeding. Monitor H&H. (2) Lower extremity edema: Code(s): R60.0 - Localized edema Status: Acute Assessment and Plan: Patient appears volume overloaded -some improvement today. Continue diuresis with IV furosemide but will reduce down to 40 mg IV once daily and Zaroxolyn 2.5 mg daily Continue spironolactone 25 mg daily Compression stockings. Keep legs elevated Monitor BMP daily. (3) Ileus, unspecified: Code(s): K56.7 - Ileus, unspecified Status: Acute Assessment and Plan: Slow improvement; has been able to eat soft diet now (4) Hypokalemia: Code(s): E87.6 - Hypokalemia Status: Acute Assessment and Plan: Supplement potassium as necessary. (5) QT prolongation: Code(s): R94.31 - Abnormal electrocardiogram [ECG] [EKG] Status: Acute Assessment and Plan: Had QT prolongation while on sotalol which has been discontinued. Avoid sotalol. EKG from 05/24/2021: QTC 384 milliseconds, acceptable. (6) CAD (coronary artery disease): Qualifiers: Coronary Disease-Associated Artery/Lesion type: unspecified vessel or lesion type [place] vs. transplanted heart: unspecified whether [place] or transplanted heart Associated angina: unspecified whether angina present Qualified Code(s): I25.10 - Atherosclerotic heart disease of [place] coronary artery without angina pectoris Code(s): I25.10 - Atherosclerotic heart disease of [place] coronary artery without angina pectoris Status: Acute Assessment and Plan: No active ischemic symptoms. Continue low-dose aspirin, statin. Beta-rosita. (7) Acute respiratory failure: Code(s): J96.00 - Acute respiratory failure, unspecified whether with hypoxia or hypercapnia Status: Acute Assessment and Plan: Required intubation earlier this hospitalization. Further management per primary hospitalist team. Respiratory arrest reportedly secondary to apparent decoupling from BiPAP resulting in severe bradycardia resolved with oxygenation and intubation. Sotalol discontinued. (8) TRACY (acute kidney injury): Code(s): N17.9 - Acute kidney failure, unspecified Status: Acute Assessment and Plan: Stable thus far Continue to follow. Creatinine is stable (9) Anemia: Qualifiers: Anemia type: other cause Other causes of anemia: chronic disease, other Qualified Code(s): D63.8 - Anemia in other chronic diseases classified elsewhere Code(s): D64.9 - Anemia, unspecified Status: Acute Assessment and Plan: Stable, monitor H&H. (10) Physical deconditioning: Code(s): R53.81 - Other malaise Status: Acute Assessment and Plan: Patient had prolonged hospitalization and is physically deconditioned. Continue PT OT. Patient would benefit from rehab. Subjective Date/time seen: 06/03/21 09:55 Interval history: ADmitted 05/09/2020 with syncope, acute kidney injury. Subsequently found to have an ileus. Has persistent atrial fibrillation, rapid ventricular response on admission. History of CAD.
[2021-06-03 12:05] LABS: Glucose Point of Care 161 mg/dl (65-105)
--- NOTE | 2021-06-03 13:48 | P.PNIM_ITS ---
Progress Note: A&P Assessment and Plan (1) Lower extremity edema: Code(s): R60.0 - Localized edema Status: Acute Assessment and Plan: Patient was more edematous in the legs and even with sacral edema. Venous do ppler negative for DVT. He was changed back to IV Lasix. Condition improving. Metolazone added. Continue fluid restriction. (2) Atrial fibrillation with rapid ventricular response: Code(s): I48.91 - Unspecified atrial fibrillation Status: Resolved Assessment and Plan: EKG on admission showing AFib. He was on Xarelto. Echo showing EF 65-70% with Grade II diastolic dysfunction. He was started on Amio drip to control rate but may have had a reaction to this in the past so Cardiology changed him to Sotalol but this was stopped due to the prolonged QT. Metoprolol was resumed. He was intermittently in/out of AFib so Flecainide added but now stopped and Amiodarone IV resumed. Xarelto held due to ileus but now resumed. Amiodarone drip stopped but resumed because of recurrent AFib. Has been changed to oral amiodarone now. Appreciate Cardiology input. Continue telemetry. (3) Ileus, unspecified: Code(s): K56.7 - Ileus, unspecified Status: Acute Assessment and Plan: Patient developed n/v overnight on 05/20. KUB 05/21 showing severely distended gas- filled colon. CT Abd/Pelvis showing prominent gaseous distention of the transverse colon without thumbprinting or wall thickening or pneumatosis. There was prominent amount of fecal material in the colon. No bowel obstruction was evident. He was made NPO and NGT placed. Dulcolax suppositories and Reglan added. He had some improvement so NGT out and currently on low-fiber diet. Patient having bowel movements. GI following and appreciate their input. Reglan stopped now. Continue MiraLax but decrease frequency. Patient to follow up with GI after discharge. (4) Electrolyte abnormality: Code(s): E87.8 - Other disorders of electrolyte and fluid balance, not elsewhere classified Status: Acute Assessment and Plan: Potassium low at times and was replaced. Replace as needed Calcium was 5.3 with albumin 2.1 (corrected 6.8). Calcium replaced and now 7.7 Sodium low at 130 but felt related to the excessive free water. Fluid restriction. Na 134 Follow electrolytes and replace as needed. (5) Acute respiratory failure: Code(s): J96.00 - Acute respiratory failure, unspecified whether with hypoxia or hypercapnia Status: Acute Assessment and Plan: Patient developed cardiac arrest requiring intubation felt related to below with COPD, CHF and/or pneumonia. Was intubated 05/12/21. Some difficulty but ultimately patient able to be extubated 05/18/21. He did require BiPAP that evening due to increasing work of breathing but that has since improved. Speech therapy assessed patient and diet adjusted. He was weaned to room air. He is wearing the BiPAP intermittently - compliance was strongly encouraged. Continue bronchodilators, Advair. (6) Cardiac arrest: Code(s): I46.9 - Cardiac arrest, cause unspecified Status: Acute Assessment and Plan: Patient on the evening of 05/12 called out and was found the BiPAP disconnected. His HR was in the 30's. Staff assessment showing no pulse so CPR started. Epi given x 3 and bicarb x1 with high quality CPR with return of ROSC. He was down for 8 minutes. Patient intubated. QT was prolonged. CT brain showing no acute findings. Troponin noted but felt related to the Code. No known seizure-like activity. Patient placed on Keppra post-code but no evidence of seizures and patient
[2021-06-03] MEDS: RIVAROXABAN 20 MG TABLET PO (15:59)
[2021-06-03 16:42] LABS: Glucose Point of Care 195 mg/dl (65-105)
[2021-06-03] MEDS: MELATONIN 5 MG TABLET PO (21:22)
[2021-06-03 21:31] LABS: Glucose Point of Care 136 mg/dl (65-105)
[2021-06-04] VITALS (20 sets, daily range): BP systolic 114–159; BP diastolic 43–72; PULSE 5–86; RESP 16–22; TEMP 36.2–37.3; O2SAT 94–100
[2021-06-04] MEDS: METOPROLOL TARTRATE 25 MG TABLET 75 MG PO ×3 (05:16→21:03)
[2021-06-04] MEDS: CENTRAL LINE FLUSH 10 ML IV PUSH ×3 (05:16→21:04)
--- NOTE | 2021-06-04 08:43 | PM.PNCARD ---
Progress Note: A&P Assessment and Plan (1) Atrial fibrillation with rapid ventricular response: Code(s): I48.91 - Unspecified atrial fibrillation Status: Resolved Assessment and Plan: Patient had atrial fibrillation with RVR, remains on IV amiodarone. Heart rate still suboptimally controlled. Will try to transition to oral amiodarone tomorrow depending on heart rate control. Had previously maintained sinus rhythm for several days, but after switching to p.o. amiodarone and went back into AFib with RVR. Placed back on IV amiodarone and remained in atrial fibrillation but with rate controlled. He is now back in sinus rhythm. Continue amiodarone 200 mg p.o. b.i.d. Continue metoprolol tartrate to 75 mg p.o. Q 8 hours with holding parameters. Anticoagulation with rivaroxaban. Monitor for signs and symptoms of bleeding. Monitor H&H. (2) Lower extremity edema: Code(s): R60.0 - Localized edema Status: Acute Assessment and Plan: Patient appears volume overloaded -some improvement today. Continue diuresis with IV furosemide but will reduce down to 40 mg p.o. b.i.d. and Zaroxolyn 2.5 mg daily Continue spironolactone 25 mg daily KCL should be reduced at this point to 40 mEq daily Compression stockings. Keep legs elevated Monitor BMP daily. (3) Ileus, unspecified: Code(s): K56.7 - Ileus, unspecified Status: Acute Assessment and Plan: Slow improvement (4) Hypokalemia: Code(s): E87.6 - Hypokalemia Status: Acute Assessment and Plan: Supplement potassium as necessary. (5) QT prolongation: Code(s): R94.31 - Abnormal electrocardiogram [ECG] [EKG] Status: Acute Assessment and Plan: Had QT prolongation while on sotalol which has been discontinued. Avoid sotalol. EKG from 05/24/2021: QTC 384 milliseconds, acceptable. (6) CAD (coronary artery disease): Qualifiers: Associated angina: unspecified whether angina present Coronary Disease-Associated Artery/Lesion type: unspecified vessel or lesion type [place] vs. transplanted heart: unspecified whether [place] or transplanted heart Qualified Code(s): I25.10 - Atherosclerotic heart disease of [place] coronary artery without angina pectoris Code(s): I25.10 - Atherosclerotic heart disease of [place] coronary artery without angina pectoris Status: Acute Assessment and Plan: No active ischemic symptoms. Continue low-dose aspirin, statin. Beta-rosita. (7) Acute respiratory failure: Code(s): J96.00 - Acute respiratory failure, unspecified whether with hypoxia or hypercapnia Status: Acute Assessment and Plan: Required intubation earlier this hospitalization. Further management per primary hospitalist team. Respiratory arrest reportedly secondary to apparent decoupling from BiPAP resulting in severe bradycardia resolved with oxygenation and intubation. Sotalol discontinued. (8) TRACY (acute kidney injury): Code(s): N17.9 - Acute kidney failure, unspecified Status: Acute Assessment and Plan: Stable thus far Continue to follow. Creatinine is stable (9) Anemia: Qualifiers: Anemia type: other cause Other causes of anemia: chronic disease, other Qualified Code(s): D63.8 - Anemia in other chronic diseases classified elsewhere Code(s): D64.9 - Anemia, unspecified Status: Acute Assessment and Plan: Stable, monitor H&H. (10) Physical deconditioning: Code(s): R53.81 - Other malaise Status: Acute Assessment and Plan: Patient had prolonged hospitalization and is physically deconditioned. Continue PT OT. Patient would benefit from rehab. Subjective Date/time seen: 06/04/21 08:43 Interval history: ADmitted 05/09/2020 with syncope, acute kidney injury. Subsequently found to have an ileus. Has persistent atrial fibrillation, rapid ventricular response on admission. Hist
[2021-06-04] MEDS: FLUTICASONE/SALMETEROL 115-21 MCG INHALER 1 PUFF 2 PUFF INHALATION ×2 (08:45→20:55)
[2021-06-04] MEDS: LEVALBUTEROL HFA (*SP) 15 GM INHALER 2 PUFF INHALATION ×3 (08:45→20:55)
[2021-06-04] MEDS: CENTRAL LINE FLUSH 20 ML IV PUSH (09:10)
[2021-06-04] MEDS: CYANOCOBALAMIN 1,000 MCG TABLET 1000 MCG PO (09:11)
[2021-06-04] MEDS: metOLazone 2.5 MG TABLET PO (09:11)
[2021-06-04] MEDS: POTASSIUM CHLORIDE 20 MEQ TABLET.ER 40 MEQ PO (09:11)
[2021-06-04] MEDS: ASPIRIN 81 MG ENTERIC TABLET PO (09:11)
[2021-06-04] MEDS: SPIRONOLACTONE 25 MG TABLET PO (09:11)
[2021-06-04] MEDS: EMPAGLIFLOZIN 10 MG TABLET PO (09:11)
[2021-06-04] MEDS: ATORVASTATIN 40 MG TABLET BY MOUTH (09:11)
[2021-06-04] MEDS: AMIODARONE HCL 200 MG TABLET PO ×2 (09:12→21:04)
[2021-06-04] MEDS: polyethylene glycoL 3350 17 GM POWD.PACK PO (09:12)
[2021-06-04] MEDS: FERROUS SULFATE 324 MG TABLET PO ×2 (09:13→18:08)
[2021-06-04] MEDS: rOPINIRole HCL 1 MG TABLET PO ×3 (09:13→18:10)
[2021-06-04] MEDS: PANTOPRAZOLE 40 MG TABLET PO (09:14)
[2021-06-04] MEDS: FUROSEMIDE INJ 40 MG/4 ML VIAL IV PUSH ×2 (09:15→09:20)
[2021-06-04 09:54] LABS: Glucose Point of Care 173 mg/dl (65-105)
[2021-06-04 10:10] LABS: Anion Gap 7 mmol/L (8-16); Blood Urea Nitrogen 15 mg/dL (9-20); Carbon Dioxide 37 mmol/L (22-30); Chloride 93 mmol/L (98-107); Estimated CRCL calculation 66 ml/min; Estimated Glomerular Filt Rate 60; Glucose 174 mg/dL (65-110); Potassium 4.4 mmol/L (3.4-5.0); Sodium 137 mmol/L (137-145)
--- NOTE | 2021-06-04 12:02 | PM.IMPN ---
Progress Note: A&P Assessment and Plan (1) Lower extremity edema: Code(s): R60.0 - Localized edema Status: Acute Assessment and Plan: Patient was more edematous in the legs and even had sacral edema. Venous doppler negative for DVT. He was changed back to IV Lasix and metolazone and Spironolactone added. Having good diuresis. Condition improving. Continue fluid restriction. Okay to discharge when okay with Cardiology. Follow electrolytes and renal function. (2) Atrial fibrillation with rapid ventricular response: Code(s): I48.91 - Unspecified atrial fibrillation Status: Resolved Assessment and Plan: EKG on admission showing AFib. He was on Xarelto. Echo showing EF 65-70% with Grade II diastolic dysfunction. He was started on Amio drip to control rate but may have had a reaction to this in the past so Cardiology changed him to Sotalol but this was stopped due to the prolonged QT. Metoprolol was resumed. He was intermittently in/out of AFib so Flecainide added but then stopped and Amiodarone IV resumed. Xarelto held due to ileus but now resumed. Converted to NSR. Amiodarone drip changed to oral amiodarone now. Appreciate Cardiology input. Continue telemetry. (3) Ileus, unspecified: Code(s): K56.7 - Ileus, unspecified Status: Acute Assessment and Plan: Patient developed n/v overnight on 05/20. KUB 05/21 showing severely distended gas-filled colon. CT Abd/Pelvis showing prominent gaseous distention of the transverse colon without thumbprinting or wall thickening or pneumatosis. There was prominent amount of fecal material in the colon. No bowel obstruction was evident. He was made NPO and NGT placed. Dulcolax suppositories and Reglan added. He had some improvement so NGT removed and diet advanced. Patient having bowel movements. GI following and appreciate their input. Reglan stopped now. Continue MiraLax. Patient to follow up with GI after discharge. (4) Electrolyte abnormality: Code(s): E87.8 - Other disorders of electrolyte and fluid balance, not elsewhere classified Status: Acute Assessment and Plan: Potassium low at times and was replaced. Potassium 4.4 today Calcium was 5.3 with albumin 2.1 (corrected 6.8). Calcium replaced and now normal Sodium low at 130 but felt related to the excessive free water. Fluid restriction. Na 134 now Follow electrolytes and replace as needed. Decrease oral potassium (5) Acute respiratory failure: Code(s): J96.00 - Acute respiratory failure, unspecified whether with hypoxia or hypercapnia Status: Acute Assessment and Plan: Patient developed cardiac arrest requiring intubation felt related to below with COPD, CHF and/or pneumonia. Was intubated 05/12/21. Some difficulty but ultimately patient able to be extubated 05/18/21. He did require BiPAP that evening due to increasing work of breathing but that has since improved. Speech therapy assessed patient and diet adjusted. He is wearing the BiPAP intermittently - compliance was strongly encouraged. Continue bronchodilators, Advair. Still on O2 intermittently but will hold O2 unless truly hypoxic. (6) Cardiac arrest: Code(s): I46.9 - Cardiac arrest, cause unspecified Status: Acute Assessment and Plan: Patient on the evening of 05/12 called out and was found the BiPAP disconnected. His HR was in the 30's. Staff assessment showing no pulse so CPR started. Epi given x 3 and bicarb x1 with high quality CPR with return of ROSC. He was down for 8 minutes. Patient intubated. QT was prolonged. CT brain showing no acute findings. Troponin noted but felt related to the Code. No known seizure-like activity. Patient placed on Keppra post-code but no evidence of seizures and patient recovered so Keppra stopped. Cardiac arrest most likely related to respiratory event as his BiPAP was pulled apart and patient became bradycardic and then pulseless arrest. Recovering
--- NOTE | 2021-06-04 12:37 | PCNFU ---
Nutrition Follow-Up Complete: Inadequate Oral Intake as related to mechanical ventilation as evidenced by NPO. Goal: Meet estimated nutritional needs Pt. is progressing toward goal. No new goal at this time. mendation: Last recorded weight is 112.7 kg. Recommend re-weighing pt. prior to discharge. Pt current nutrition is a level 6 soft and bite sized diabetic consistent carbohydrate and low fiber diet. Bowel Motility: + BM 06/03/2021 Labs Reviewed: Glu 174 Meds Noted: Pacerone, Lipitor, Vitamin B-12 tablet, Lasix, ferrous sulfate tablet, Glucagon, Glucose, Novolog, Atrovent neb, Lopressor, Protonix, Miralax, Requip, Xarelto, Kcl tablet, Aldactone Skin: No skin break down at this time. WNL. Additional Notes: Pt. is on a 1200 ml fluid restriction and is receiving ensure compact BID providing an additional 220 calories and 9 grams of protein to increase caloric intake. Previously reported having a poor appetite but states his appetite has been picking up . His oral intake ranges anywhere from 0-100% of meals but he does his best to eat. No additional nutrition related concerns at this time. Will monitor every 5 days.
[2021-06-04] MEDS: UMECLIDINIUM BROMIDE 62.5 MCG ELLIPTA 1 PUFF INHALATION (16:05)
[2021-06-04] MEDS: RIVAROXABAN 20 MG TABLET PO (18:09)
[2021-06-04] MEDS: MELATONIN 5 MG TABLET PO (21:04)
[2021-06-04 21:13] LABS: Glucose Point of Care 183 mg/dl (65-105)
[2021-06-05] VITALS (13 sets, daily range): BP systolic 109–119; BP diastolic 40–50; PULSE 55–87; RESP 18–21; TEMP 36.2–36.7; O2SAT 93–99
[2021-06-05] MEDS: METOPROLOL TARTRATE 25 MG TABLET 75 MG PO ×2 (05:26→15:07)
[2021-06-05] MEDS: CENTRAL LINE FLUSH 10 ML IV PUSH ×2 (05:27→15:07)
[2021-06-05 07:09] LABS: Hematocrit 25.8 % (42.0-52.0); Hemoglobin 8.1 g/dL (14.0-18.0); Mean Corpuscular HGB Conc 31.4 g/dl (32-36); Mean Corpuscular Hemoglobin 27.9 pg (26-34); Mean Platelet Volume 9.9 fl (7.4-10.4); Platelet Count Result 283 k/mm3 (150-375); Red Cell Distribution Width 17.7 % (11.5-14.5); White Blood Count 4.6 K/mm3 (4.5-10.0)
[2021-06-05 07:26] LABS: Albumin Level 3.1 g/dL (3.5-5.1); Anion Gap 5 mmol/L (8-16); Blood Urea Nitrogen 15 mg/dL (9-20); Calcium 8.4 mg/dL (8.4-10.2); Carbon Dioxide 36 mmol/L (22-30); Chloride 90 mmol/L (98-107); Estimated CRCL calculation 72 ml/min; Estimated Glomerular Filt Rate > 60; Glucose 118 mg/dL (65-110); Magnesium 1.8 mg/dL (1.6-2.3); Phosphorus 3.8 mg/dL (2.5-4.5); Potassium 4.1 mmol/L (3.4-5.0); Sodium 131 mmol/L (137-145)
[2021-06-05 08:21] LABS: Glucose Point of Care 124 mg/dl (65-105)
[2021-06-05] MEDS: rOPINIRole HCL 1 MG TABLET PO ×2 (08:38→12:54)
[2021-06-05] MEDS: CYANOCOBALAMIN 1,000 MCG TABLET 1000 MCG PO (08:38)
[2021-06-05] MEDS: FERROUS SULFATE 324 MG TABLET PO (08:38)
[2021-06-05] MEDS: metOLazone 2.5 MG TABLET PO (08:38)
[2021-06-05] MEDS: PANTOPRAZOLE 40 MG TABLET PO (08:39)
[2021-06-05] MEDS: AMIODARONE HCL 200 MG TABLET PO (08:39)
[2021-06-05] MEDS: ASPIRIN 81 MG ENTERIC TABLET PO (08:39)
[2021-06-05] MEDS: EMPAGLIFLOZIN 10 MG TABLET PO (08:39)
[2021-06-05] MEDS: SPIRONOLACTONE 25 MG TABLET PO (08:39)
[2021-06-05] MEDS: POTASSIUM CHLORIDE 20 MEQ TABLET.ER 40 MEQ PO (08:39)
[2021-06-05] MEDS: ATORVASTATIN 40 MG TABLET BY MOUTH (08:39)
[2021-06-05] MEDS: LEVALBUTEROL HFA (*SP) 15 GM INHALER 2 PUFF INHALATION ×2 (09:25→14:22)
[2021-06-05] MEDS: UMECLIDINIUM BROMIDE 62.5 MCG ELLIPTA 1 PUFF INHALATION (09:25)
[2021-06-05] MEDS: FLUTICASONE/SALMETEROL 115-21 MCG INHALER 1 PUFF 2 PUFF INHALATION (09:26)
[2021-06-05 10:11] LABS: Glucose Point of Care 129 mg/dl (65-105)
[2021-06-05 12:05] LABS: Glucose Point of Care 141 mg/dl (65-105)
--- NOTE | 2021-06-05 14:34 | PM.DS ---
DS: Admitting Diagnosis Discharge Date 06/05/21 Admitting Diagnosis Syncope DS: Discharge Diagnosis Discharge Diagnosis (1) Lower extremity edema: Code(s): R60.0 - Localized edema Status: Acute Assessment and Plan: Patient was more edematous in the legs and even had sacral edema when he was improving toward the end of his hospitalization. Venous doppler negative for DVT. He was treated with Lasix, metolazone and Spironolactone. Had good diuresis. Fluid restriction. (2) Atrial fibrillation with rapid ventricular response: Code(s): I48.91 - Unspecified atrial fibrillation Status: Resolved Assessment and Plan: EKG on admission showing AFib. He was on Xarelto. Echo showing EF 65-70% with Grade II diastolic dysfunction. He was started on Amio drip to control rate but may have had a reaction to this in the past so Cardiology changed him to Sotalol but this was stopped due to the prolonged QT. Metoprolol was resumed. He was intermittently in/out of AFib so Flecainide added but then stopped and Amiodarone IV resumed which he tolerated. Xarelto held due to ileus but then resumed. Converted to NSR. Amiodarone drip changed to oral amiodarone now. Appreciate Cardiology input. (3) Ileus, unspecified: Code(s): K56.7 - Ileus, unspecified Status: Acute Assessment and Plan: Patient developed n/v overnight on 05/20. KUB 05/21 showing severely distended gas-filled colon. CT Abd/Pelvis showing prominent gaseous distention of the transverse colon without thumbprinting or wall thickening or pneumatosis. There was prominent amount of fecal material in the colon. No bowel obstruction was evident. He was made NPO and NGT placed. Dulcolax suppositories and Reglan added. He had some improvement so NGT removed and diet advanced. Patient having bowel movements. GI followed and appreciate their input. Reglan stopped now. We continued MiraLax. Patient to follow up with GI after discharge. (4) Electrolyte abnormality: Code(s): E87.8 - Other disorders of electrolyte and fluid balance, not elsewhere classified Status: Acute Assessment and Plan: Potassium, Calcium, Sodium were low at times requiring replacement. (5) Acute respiratory failure: Code(s): J96.00 - Acute respiratory failure, unspecified whether with hypoxia or hypercapnia Status: Acute Assessment and Plan: Patient developed cardiac arrest requiring intubation felt related to BiPAP malfunction with COPD, CHF and/or pneumonia. Was intubated 05/12/21. Some difficulty but ultimately patient able to be extubated 05/18/21. He did require BiPAP that evening due to increasing work of breathing but that has since improved. Speech therapy assessed patient and diet adjusted. He is wearing the BiPAP intermittently - compliance was strongly encouraged. We continued bronchodilators, Advair. (6) Cardiac arrest: Code(s): I46.9 - Cardiac arrest, cause unspecified Status: Acute Assessment and Plan: Patient on the evening of 05/12 called out and was found the BiPAP disconnected. His HR was in the 30's. Staff assessment showing no pulse so CPR started. Epi given x 3 and bicarb x1 with high quality CPR with return of ROSC. He was down for 8 minutes. Patient intubated. QT was prolonged. CT brain showing no acute findings. Troponin noted but felt related to the Code. No known seizure-like activity. Patient placed on Keppra post-code but no evidence of seizures and patient recovered so Keppra stopped. Cardiac arrest most likely related to respiratory event as his BiPAP was pulled apart and patient became bradycardic and then pulseless arrest. Recovered well. Cardiology followed (7) Bacteremia: Code(s): R78.81 - Bacteremia Status: Acute Assessment and Plan: CXR 05/31 reviewed and showing minimal airspace opacities in the lung bases. Last fevers were on 05/15/21. Patient re-cultured on
[2021-06-05 16:32] LABS: EDCOVIDSCREEN Negative (Negative)
[2021-06-05 17:02] LABS: Glucose Point of Care 157 mg/dl (65-105)
== END 2021-06-05 17:05 | DRG 682 ==
LOC: ANHED 18:45 → ANHIMU 21:13 → ANHICU 05-17 23:04 → ANHIMU 05-29 18:31 → ANH3MEDSUR 06-05 14:56 → ANHCPC 06-06 12:02 → ANHICU 06-06 12:02 → ANHIMU 06-06 12:02
PROVIDERS: Internal Medicine; Internal Medicine Cardiovascular Disease; Nurse Practitioner; Physician Assistant; Admitting Provider Internal Medicine; Emergency Provider Family Medicine; PCP Family Medicine; Visit Provider Internal Medicine
DX: N17.9 Acute kidney failure, unspecified (principal); I46.9 Cardiac arrest, cause unspecified; J96.00 Acute respiratory failure, unspecified whether with hypoxia or hypercapnia; J18.9 Pneumonia, unspecified organism; I44.2 Atrioventricular block, complete; J96.12 Chronic respiratory failure with hypercapnia; I48.92 Unspecified atrial flutter; R78.81 Bacteremia; K56.7 Ileus, unspecified; I13.0 Hypertensive heart and chronic kidney disease with heart failure and stage 1 through stage 4 chronic kidney disease, or unspecified chronic kidney disease; E87.1 Hypo-osmolality and hyponatremia; I95.1 Orthostatic hypotension; E86.0 Dehydration; I25.10 Atherosclerotic heart disease of native coronary artery without angina pectoris; Z95.5 Presence of coronary angioplasty implant and graft; I48.91 Unspecified atrial fibrillation; Z79.01 Long term (current) use of anticoagulants; R29.6 Repeated falls; F10.10 Alcohol abuse, uncomplicated; Y90.9 Presence of alcohol in blood, level not specified; J43.9 Emphysema, unspecified; Z86.74 Personal history of sudden cardiac arrest; E78.00 Pure hypercholesterolemia, unspecified; I48.0 Paroxysmal atrial fibrillation; G25.81 Restless legs syndrome; I25.2 Old myocardial infarction; Z95.1 Presence of aortocoronary bypass graft; F17.210 Nicotine dependence, cigarettes, uncomplicated; S91.209A Unspecified open wound of unspecified toe(s) with damage to nail, initial encounter; I25.5 Ischemic cardiomyopathy; W19.XXXA Unspecified fall, initial encounter; Y93.9 Activity, unspecified; Y92.9 Unspecified place or not applicable; Y99.9 Unspecified external cause status; Z20.822 Contact with and (suspected) exposure to COVID-19; S92.919A Unspecified fracture of unspecified toe(s), initial encounter for closed fracture; E78.5 Hyperlipidemia, unspecified; Z79.82 Long term (current) use of aspirin; T79.6XXA Traumatic ischemia of muscle, initial encounter; R94.31 Abnormal electrocardiogram [ECG] [EKG]; Z87.891 Personal history of nicotine dependence; R73.9 Hyperglycemia, unspecified; I11.0 Hypertensive heart disease with heart failure; I50.9 Heart failure, unspecified; B95.61 Methicillin susceptible Staphylococcus aureus infection as the cause of diseases classified elsewhere; E87.8 Other disorders of electrolyte and fluid balance, not elsewhere classified; R60.0 Localized edema; M79.89 Other specified soft tissue disorders; N18.9 Chronic kidney disease, unspecified; D63.1 Anemia in chronic kidney disease; D50.0 Iron deficiency anemia secondary to blood loss (chronic); E66.01 Morbid (severe) obesity due to excess calories; Z68.34 Body mass index [BMI] 34.0-34.9, adult; R00.1 Bradycardia, unspecified
CPT/HCPCS: 36415; 36569; 36600; 70450; 71045; 73600; 73660; 74019; 74176; 76775; 80048; 80053; 80069; 80202; 82274; 82375; 82550; 82728; 82805; 82948; 83036; 83050; 83540; 83550; 83605; 83735; 83880; 83921; 84100; 84132; 84238; 84484; 85014; 85018; 85025; 85027; 85610; 85730; 87040; 87070; 87077; 87186; 87205; 87426; 92610; 93005; 93970; 94002; 94003; 94640; 97110; 97116; 97161; 97164; 97165; 97168; 97530; 97535; 99285; A9270; C1751; C8929; C9113; C9803; J0171; J0282; J0461; J0610; J0690; J0692; J1644; J1815; J1940; J1953; J1956; J2250; J2765; J2920; J2930; J3010; J3250; J3370; J3420; J3475; J3480; J7030; J7040; Q9957; U0003; U0005

== ENCOUNTER 2021-07-11 14:52 | Outpatient (CLI) | payer MEDICARE, SELFPAY ==
--- NOTE | ~2021-07-11 | XR_ITS ---
XR chest 2V DATE: 07/11/2021 15:37 INDICATION: Cough. Myocardial infarction in April 2021. TECHNIQUE: PA and lateral chest COMPARISON: 06/20/2020 CT chest 05/31/2021 portable AP chest FINDINGS: Status post sternotomy and coronary bypass graft surgery. Heart size is borderline. There is aortic calcification. Moderate bilateral hyperinflation. The cardiophrenic fat pads. No pulmonary infiltrate or consolidati on, pleural effusion or pulmonary vascular congestion or pneumothorax. Diffuse osteopenia. IMPRESSION: Status post sternotomy and coronary bypass graft surgery No active pulmonary disease Reviewed, dictated and finalized at location A.
[2021-07-11 15:57] LABS: Basophils Absolute Auto 0.1 K/mm3 (0.0-0.1); Basophils Percent Auto 0.6 % (0.2-1.2); Eosinophils Absolute Auto 0.3 K/mm3 (0-0.3); Eosinophils Percent Auto 3.3 % (0-4.4); Hematocrit 33.1 % (42.0-52.0); Hemoglobin 10.2 g/dL (14.0-18.0); Immature Granulocyte Absolute 0.03 K/mm3 (0.00-0.031); Immature Granulocyte Percent A 0.4 % (0-0.5); Lymphocytes Percent Auto 11.7 % (18.3-44.2); Mean Corpuscular HGB Conc 30.8 g/dl (32-36); Mean Corpuscular Hemoglobin 28.3 pg (26-34); Mean Corpuscular Volume 91.7 fl (80-100); Mean Platelet Volume 10.2 fl (7.4-10.4); Monocytes Absolute Auto 0.9 K/mm3 (0.1-0.6); Monocytes Percent Auto 9.9 % (2.6-8.5); Neutrophils Absolute Auto 6.4 K/mm3 (1.3-6.7); Neutrophils Percent Auto 74.1 % (45.5-73.1); Platelet Count Result 527 k/mm3 (150-375); Red Blood Count 3.61 M/mm3 (4.6-6.20); Red Cell Distribution Width 17.1 % (11.5-14.5); White Blood Count 8.6 K/mm3 (4.5-10.0)
[2021-07-11 16:10] LABS: Alanine Aminotransferase 10 U/L (4-50); Alkaline Phosphatase 122 U/L (38-126); Anion Gap 9 mmol/L (8-16); Aspartate Amino Transferase 19 U/L (17-59); Bilirubin,Total 0.6 mg/dL (0.2-1.3); Blood Urea Nitrogen 12 mg/dL (9-20); Calcium 8.5 mg/dL (8.4-10.2); Carbon Dioxide 26 mmol/L (22-30); Chloride 99 mmol/L (98-107); Creatine Kinase 39 U/L (55-170); Estimated Glomerular Filt Rate > 60; Glucose 135 mg/dL (65-110); Magnesium 1.9 mg/dL (1.6-2.3); Potassium 3.7 mmol/L (3.4-5.0); Sodium 134 mmol/L (137-145)
[2021-07-11 16:18] LABS: Creatine Kinase MB 0.9 ng/mL (0.0-2.37)
== END 2021-07-11 14:53 | disposition home or self-care (01) ==
PROVIDERS: PCP Family Medicine; Referring Provider Nurse Practitioner; Visit Provider Nurse Practitioner Family
DX: R78.81 Bacteremia (principal); M62.82 Rhabdomyolysis; E87.6 Hypokalemia; R05.9 Cough, unspecified; I48.0 Paroxysmal atrial fibrillation; Z95.1 Presence of aortocoronary bypass graft
CPT/HCPCS: 36415; 71046; 80053; 82550; 82553; 83735; 85025

== ENCOUNTER 2021-10-15 11:56 | Inpatient (IN) | payer MEDICARE, SELFPAY ==
[2021-10-15] VITALS (11 sets, daily range): BP systolic 138–177; BP diastolic 53–92; PULSE 60–88; RESP 17–22; TEMP 36.6–36.8; O2SAT 90–99
--- NOTE | ~2021-10-15 | CT_ITS ---
EXAMINATION: CTA chest PE protocol DATE: 10/15/2021 16:10 INDICATION: unexplained hypoxia TECHNIQUE: Computed tomography angiography (CTA) of the chest was performed with 100 mL Omnipaque-350 intravenous contrast timed to evaluate the pulmonary arteries. Coronal maximum intensity projection 3D-reconstructions were created by the technologist. The dose-length product (DLP) was 774.43 mGy-cm. Automated exposure control and iterative reconstruction technique were employed. COMPARISON: X-ray chest, same date. CTPA 06/20/2020. FINDINGS: Study quality: Mild lower lobe motion, overall adequate. Pulmonary arteries: No pulmonary emboli detected. Thoracic aorta: No significant dilation. Atherosclerotic calcification. Lung parenchyma and airways: Mild interlobular septal thickening. Mild emphysematous change. Bibasila r atelectasis. Thoracic inlet, axillae and chest wall: Incompletely visualized, but otherwise normal-appearing thyro id. No lymphadenopathy. Bilateral gynecomastia. Intact sternotomy wires. Mediastinum: Normal. Heart and pericardium: Cardiomegaly. Mitral and aortic valve calcification. Coronary artery calcifications: Heavy. Pleura: Unremarkable. Upper abdomen: No significant finding. Bones: No acute osseous finding. IMPRESSION: No CT evidence of acute pulmonary embolus. Mild interstitial pulmonary edema. Reviewed, dictated and finalized at location K.
--- NOTE | ~2021-10-15 | CT_ITS ---
EXAMINATION: CT brain wo con DATE: 10/15/2021 12:48 INDICATION: Hallucinations for 2 weeks TECHNIQUE: Computed tomography (CT) of the head was performed without intravenous contrast. The mA wa s adjusted according to patient size. Iterative reconstruction technique was employed. Exam dose: 60 5.33 mGy-cm total exam DLP. COMPARISON: May 2021 CT brain FINDINGS: Bilateral vertebral artery and prominent bilateral carotid siphon internal carotid artery c alcifications. Bilateral occipital chronic cerebrovascular infarcts, left larger than right, not present on 05/22/2021 . Small chronic left frontal lobe infarct. Chronic basal ganglia lacunar infarcts. No acute cerebrovascular infarct is evident. However, CT is not sensitive for detection of hyperacute nonhemorrhagic infarcts. No intracranial mass lesion or hemorrhage, midline shift or mass effect. No subdural or epidural hematoma. No fracture or bone destruction of the cranial vault. Included paranasal sinuses and mastoid air cell s are unremarkable. 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 Reviewed, dictated and finalized at location A.
--- NOTE | ~2021-10-15 | XR_ITS ---
XR chest 2V DATE: 10/15/2021 12:43 INDICATION: Wheezing, shortness of breath TECHNIQUE: AP and lateral views COMPARISON: 07/11/2021 2 view chest 06/30/2020 CT pulmonary scan FINDINGS: Prominent cardiophrenic fat pad on the left obscures the left cardiac margin. There may be mild atelectasis or infiltrate at the lung bases. Lungs appear clear otherwise. Status post sternotomy and coronary artery bypass graft surgery. Aortic arch calcification. Vascular stent overlies left subclavian artery approximately. Degenerative spurring of the thoracic spine. IMPRESSION: Status post sternotomy and coronary bypass surgery There may be mild infiltrate or atelectasis the lung bases Reviewed, dictated and finalized at location A.
--- NOTE | ~2021-10-15 | XR_ITS ---
EXAMINATION: XR chest 1V portable INDICATION: Fever of unknown origin TECHNIQUE: Portable AP chest at 1646 hours COMPARISON: 10/15/2021 FINDINGS: There is a small right pleural effusion with slight increase in size. There are minimal air space opacities of the right mid and lower lung zones. Cardiomegaly is noted. There is no pneumothora x. Median sternotomy wires and mediastinal surgical clips are seen, likely from prior coronary artery bypass grafting. A vascular stent projects in the left paramediastinal location. IMPRESSION: 1. Small right pleural effusion with slight increase in size. 2. Airspace opacities of the right middle lower lung zones, likely passive atelectasis. Reviewed, dictated and finalized at location B. IMPRESSION: 1. Small right pleural effusion with slight increase in size. 2. Airspace opacities of the right middle lower lung zones, likely passive atel ectasis.
--- NOTE | ~2021-10-15 | XR_ITS ---
EXAMINATION: XR chest 2V DATE: 10/20/2021 10:59 INDICATION: Shortness of breath TECHNIQUE: frontal and lateral views of the chest were obtained. COMPARISON: Chest radiograph dated 10/18/[address] dated 10/15/2021 FINDINGS: Decreasing opacities in the right lower lung zone consistent with decrease in size of a small right p leural effusion and associated atelectasis or pneumonia. No pneumothorax or left-sided pleural effusi on. Cardiomegaly with indistinct left heart border resulting from a prominent left paracardial fat pa d. Median sternotomy wires and mediastinal surgical clips are seen, likely from prior coronary artery bypass grafting. Multiple bilateral rib fractures which appear both subacute and chronic on prior CT . Right rotator cuff arthropathy. IMPRESSION: 1. Decreasing small right pleural effusion with associated right basilar atelectasis versus less like ly pneumonia. 2. Cardiomegaly. Reviewed, dictated and finalized at location A. IMPRESSION: 1. Decreasing small right pleural effusion with associated right basilar atelec tasis versus less likely pneumonia. 2. Cardiomegaly.
--- NOTE | ~2021-10-15 | MR_ITS ---
EXAMINATION: MR brain/brain stem wo con DATE: 10/16/2021 11:55 INDICATION: Hallucinations TECHNIQUE: Magnetic resonance imaging (MRI) of the brain and brainstem was performed without intraven ous contrast. Sequences included sagittal and axial T1-weighted SE, axial diffusion-weighted FS SE, a xial T2*-weighted GRE, axial T2-weighted FLAIR, and axial T2-weighted FSE. Apparent diffusion coeffic ient (ADC) maps were created. COMPARISON: Head CT dated 10/15/2021 FINDINGS: Small region of encephalomalacia consistent with chronic infarct in the medial left temporal lobe. Ad ditional small old infarcts in the posterior left frontal lobe and left cerebellar hemisphere. There are no areas of restricted diffusion to suggest acute infarction. No intracranial hemorrhage or abnor mal intracranial mass lesion. There are scattered areas of nonspecific increased T2-weighted signal i ntensity in the cerebral white matter, predominantly involving the deep and periventricular white mat ter. There are no intraparenchymal signal abnormalities seen on the other pulse sequences. The ventri cles are symmetric and normal in size. There are no abnormal extra-axial fluid collections. Flow void s are seen in the cerebral arteries on the T2-weighted sequences consistent with their expected paten cy. Visualized orbits and soft tissues are unremarkable. IMPRESSION: 1. Small old infarcts at the left occipital lobe amount posterior left frontal lobe and left cerebell ar hemisphere. No acute intracranial process. 2. Mild scattered periventricular predominant white matter T2 hyperintensity consistent with chronic small vessel ischemic disease. Reviewed, dictated and finalized at location A. IMPRESSION: 1. Small old infarcts at the left occipital lobe amount posterior left frontal lobe and left cerebellar hemisphere. No acute intracranial process. 2. Mild scattered periventricular predominant white matter T2 hyperintensity co nsistent with chronic small vessel ischemic disease.
--- NOTE | 2021-10-15 12:33 | ECG_ITS ---
Measurements Intervals [place] Rate: 62 P: 100 WV: 260 QRS: 95 QRSD: 117 T: 15 QT: 479 QTc: 488 Interpretive Statements SINUS RHYTHM WITH FIRST DEGREE AV BLOCK RIGHT AXIS DEVIATION INTRAVENTRICULAR CONDUCTION DELAY DELAYED PRECORDIAL R/S TRANSITION BORDERLINE ST-T WAVE ABNORMALITY- INFERIOR LEADS BASELINE ARTIFACT- I, III, AVR, AVL, AVF, V4-V6 ABNORMAL ECG Electronically Signed On 10-15-2021 20:51:50 CDT by Andrey Newman D.O.
--- NOTE | 2021-10-15 12:34 | ED.GENADULT ---
HPI - General Adult General Chief complaint: Psychiatric Symptoms Stated complaint: hallucinations over one week Time Seen by Provider: 10/15/21 12:23 History of Present Illness HPI narrative: Patient is a 71-year-old male with history of A. fib on eliquis, diabetes, hypertension, heart failure, obestiy, here with his son and for evaluation of hallucinations over the past week. Patient states that he will see animals walking around his house, people from his past, and he will also hear voices in his head of his grandson talking to him. States that these hallucinations are incredibly distressing to him. Denies suicidal or homicidal ideation, states that the voices just talk to him and do not tell him to do anything. Patient saw his primary care provider last week for evaluation of this and she took him off Dronedarone that she thought might be causing this, but patient symptoms improved. Additionally, patient states that he feels weak when he is up and walking around, which is led him to fall down numerous times over the past week, once he did hit his head. Denies preceding chest pain, palpitations, headaches prior to falls. He is also experiencing increased shortness of breath and leg swelling from his baseline, he does have a history of heart failure and takes Lasix. Related Data Home Medications Medication Instructions Recorded Confirmed amiodarone 200 mg tablet (Pacerone) 200 mg PO DAILY 10/15/21 10/15/21 aspirin 81 mg tablet,delayed 81 mg PO DAILY 10/15/21 10/15/21 release atorvastatin 40 mg tablet 40 mg PO QHS 10/15/21 10/15/21 losartan 25 mg tablet 25 mg PO DAILY 10/15/21 10/15/21 metoprolol succinate 200 mg 200 mg PO DAILY 10/15/21 10/15/21 tablet,extended release 24 hr pantoprazole 40 mg tablet,delayed 40 mg PO DAILY 10/15/21 10/15/21 release potassium chloride 20 mEq 20 meq PO DAILY 10/15/21 10/15/21 tablet,extended release (K-Tab) ropinirole 1 mg tablet 0.5 mg PO TID 10/15/21 10/15/21 spironolactone 25 mg tablet 25 mg PO DAILY 10/15/21 10/15/21 Allergies Allergy/AdvReac Type Severity Reaction Status Date / Time No Known Allergies Allergy Verified 05/21/21 08:33 Review of Systems Review of Systems: Gen: Reports weakness. Denies fevers or chills Eyes: Denies eye pain or visual change ENT: Denies congestion Respiratory: Reports shortness of breath. CV: Denies chest pain or palpitations GI: Denies abdominal pain nausea, emesis or diarrhea denies burning, urgency, frequency or hematuria Musculoskeletal: Reports bilateral leg swelling. Denies back pain or muscle pain Neuro: Denies numbness, tingling, or focal weakness Skin: Denies rash Psych: Reports hallucinations Except as documented, all other systems reviewed and negative [facility] Past Medical History Medical History Abdominal distension Alcohol abuse Asbestosis Atrial fibrillation with rapid ventricular response BMI 34.0-34.9,adult BMI over 35 Chronic hypercapnic respiratory failure COPD (chronic obstructive pulmonary disease) COPD (chronic obstructive pulmonary disease) with emphysema Coronary artery disease Followed by Dr. Hill Encounter for immunization (04/03/15) Essential hypertension History of ventricular fibrillation VFib arrest during cardiac catheterization December 2018 and subsequent cardiogenic shock cardiac in her aortic balloon pump emergent echo demonstrating EF of 35% Hypercholesterolemia Ileus, unspecified Irritation of eye Irritation of left eye Lumbar spondylosis with myelopathy Paroxysmal atrial fibrillation Restless leg STEMI (ST elevation myocardial infarction) Tobacco use Surgical History Surgical History History of cardiac catheterization December 2018: High-grade stenosis of left main coronary, moderate to severe diffuse disease of proximal to mid LAD, high-grade eccentric ulcerated plaque in the mid segment of the dominant RCA. During catheterization
[2021-10-15 13:31] LABS: Ethanol < 10 mg/dL (<10)
[2021-10-15 14:21] LABS: Basophils Absolute Auto 0.1 K/mm3 (0.0-0.1); Basophils Percent Auto 0.6 % (0.2-1.2); Eosinophils Absolute Auto 0.1 K/mm3 (0-0.3); Eosinophils Percent Auto 1.7 % (0-4.4); Hemoglobin 8.2 g/dL (14.0-18.0); Immature Granulocyte Absolute 0.01 K/mm3 (0.00-0.031); Immature Granulocyte Percent A 0.1 % (0-0.5); Lymphocytes Percent Auto 12.8 % (18.3-44.2); Mean Corpuscular HGB Conc 30.4 g/dl (32-36); Mean Corpuscular Hemoglobin 25.7 pg (26-34); Mean Corpuscular Volume 84.6 fl (80-100); Mean Platelet Volume 9.6 fl (7.4-10.4); Monocytes Absolute Auto 0.9 K/mm3 (0.1-0.6); Monocytes Percent Auto 11.1 % (2.6-8.5); Neutrophils Absolute Auto 5.8 K/mm3 (1.3-6.7); Neutrophils Percent Auto 73.7 % (45.5-73.1); Platelet Count Result 255 k/mm3 (150-375); Red Blood Count 3.19 M/mm3 (4.6-6.20); Red Cell Distribution Width 17.4 % (11.5-14.5); White Blood Count 7.8 K/mm3 (4.5-10.0)
[2021-10-15 14:34] LABS: Phosphorus 3.9 mg/dL (2.5-4.5)
[2021-10-15 14:35] LABS: Appearance Urine Clear (Clear); Bilirubin Urine Negative (Negative); Blood Urine 2+ (Negative); Color Urine Yellow (Yellow); Glucose Urine UA Negative (Negative); Ketones Urine Negative (Negative); Leukocyte Esterase Ur Negative LEU/UL (Negative); Nitrate Urine Negative (Negative); Protein Urine Negative (Negative); Specific Grav Ur 1.015 (1.001-1.035); pH Urine 6.5 (5.0-9.0)
[2021-10-15 14:38] LABS: Magnesium 2.4 mg/dL (1.6-2.3)
[2021-10-15 14:39] LABS: RBC Urine 0-2 /hpf (0-2); WBC Urine 0-3 /hpf
[2021-10-15 14:40] LABS: Add Urine Microscopic? YES; Amphetamine Screen Urine Negative (Negative); Barbiturate Screen Urine Negative (Negative); Benzodiazepines Screen Urine Negative (Negative); Cannabinoid Screen Urine Negative (Negative); Cocaine Screen Urine Negative (Negative); Methadone Screen Urine Negative (Negative); Opiate Screen Urine Negative (Negative); Phencyclidine Screen Urine Negative (Negative)
[2021-10-15 14:42] LABS: NT Pro B Type Natriuretic Pept 2770 pg/mL (5-100)
[2021-10-15 15:21] LABS: Base Excess ABG 0.6 mEq/l (+/-2.0); Fractional Inspired Oxygen 21 %; HCO3 ABG 26.2 mEq/l (22.0-26.0); Oxygen Content ABG 11.7 %vol (16.0-22.0); PCO2 ABG 46.5 mmHg (35.0-45.0); PO2 FiO2 Ratio Arterial Blood 2.57 %; Total Hemoglobin 9.7 g/dL (12.0-18.0); pH ABG 7.368 (7.350-7.450)
[2021-10-15 15:22] LABS: Device ROOM AIR; Modified Allen's Test Pass; Oxygen Saturation ABG 86.9 % (95.0-100.0); Oxyhemoglobin 85.4 % THb (90.0-100.0); Site Drawn RIGHT RADIAL
[2021-10-15 15:33] LABS: Alanine Aminotransferase 17 U/L (6-50); Albumin Level 4.2 g/dL (3.5-5.1); Alkaline Phosphatase 94 U/L (38-126); Anion Gap 8 mmol/L (8-16); Aspartate Amino Transferase 38 U/L (17-59); Bilirubin,Total 0.9 mg/dL (0.2-1.3); Blood Urea Nitrogen 31 mg/dL (9-20); Calcium 8.5 mg/dL (8.4-10.2); Carbon Dioxide 26 mmol/L (22-30); Chloride 99 mmol/L (98-107); Estimated CRCL calculation 47 ml/min; Estimated Glomerular Filt Rate 40; Glucose 95 mg/dL (65-110); Potassium 4.8 mmol/L (3.4-5.0); Sodium 133 mmol/L (137-145)
[2021-10-15 16:01] LABS: Troponin I 0.013 ng/mL (0.000-0.034)
[2021-10-15 17:00] LABS: SARS-CoV-2 RNA PCR Negative
--- NOTE | 2021-10-15 17:55 | PM.IMHP ---
H&P: HPI History of Present Illness Date/Time: Patient was placed observation status for expected length of stay less than 23 hours for management, will plan to re-evaluate tomorrow for improvement. 10/15/21 17:55 Chief Complaint: Hallucinations Narrative: Mr. Dai is a 71-year-old gentleman who presented emergency room with complaints of hallucinations. 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 Patient states that at times he has had double vision, but no loss of vision, partial loss of vision, scotoma, or flashing lights. Patient's spouse states that patient was taken off of his amiodarone on Friday by his material scheduler. Patient does deny any chest pain, but states he has had some mild shortness of breath. Patient denies when himself daily patient states besides the amiodarone he has been taking all medications without any difficulty. Patient states he has fallen secondary to weakness, but denies any trauma to his head. Patient denies any nausea, vomiting, constipation, or diarrhea. Patient denies any alcohol use, but patient's spouse states that patient does have a history of alcohol abuse. Patient denies any loss of consciousness, lightheadedness, dizziness, syncopal, or near syncopal episodes. Patient states that he is seeing members of his family as well as different animals and random people. Patient has a known history of GI bleed, alcohol abuse, chronic kidney disease, coronary artery disease status post coronary bypass grafting, COPD, VFib arrest in 2019, hypertension, and dyslipidemia. Review of Systems Review of Systems: A 12 point review of systems was completed patient all pertinent positive and negative per HPI the remainder are unremarkable. [facility] Past Medical History Medical History Abdominal distension Alcohol abuse Asbestosis Atrial fibrillation with rapid ventricular response BMI 34.0-34.9,adult BMI over 35 Chronic hypercapnic respiratory failure COPD (chronic obstructive pulmonary disease) COPD (chronic obstructive pulmonary disease) with emphysema Coronary artery disease Followed by Dr. Hill Encounter for immunization (04/03/15) Essential hypertension History of ventricular fibrillation VFib arrest during cardiac catheterization December 2018 and subsequent cardiogenic shock cardiac in her aortic balloon pump emergent echo demonstrating EF of 35% Hypercholesterolemia Ileus, unspecified Irritation of eye Irritation of left eye Lumbar spondylosis with myelopathy Paroxysmal atrial fibrillation Restless leg STEMI (ST elevation myocardial infarction) Tobacco use Surgical History Surgical History History of cardiac catheterization December 2018: High-grade stenosis of left main coronary, moderate to severe diffuse disease of proximal to mid LAD, high-grade eccentric ulcerated plaque in the mid segment of the dominant RCA. During catheterization the patient went into VFib arrest much shock x1 Hx of CABG CABG with [place] to LAD, left radial artery to OM 2, reverse saphenous vein graft 2 p.o. be of RCA performed by Dr. Worrell December 2019 at [facility]. Family History Family History Mother Bone cancer Father Alcoholism Sibling Healthy adult male 62 years old Social History Social History Social History: 48 years. They have 4 children who reportedly healthy. He is a former smoker at least a pack of cigarettes per day for about 42 years. He used to drink alcohol quite heavily and drink at least a 10 pack a day until his heart attack in December of 2018. He denies any illicit substance use. 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 Primary care physician: Dr. Thomas Zamarripa
[2021-10-15] MEDS: FUROSEMIDE INJ 40 MG/4 ML VIAL IV PUSH (19:56)
--- NOTE | 2021-10-15 20:05 | ECG_ITS ---
Measurements Intervals [place] Rate: 54 P: -72 DE: 183 QRS: 90 QRSD: 112 T: 6 QT: 504 QTc: 479 Interpretive Statements SINUS BRADYCARDIA INTRAVENTRICULAR CONDUCTION DELAY BORDERLINE ST-T WAVE ABNORMALITY- INFERIOR LEADS BORDERLINE ECG Electronically Signed On 10-16-2021 10:56:10 CDT by Andrey Newman D.O.
[2021-10-15 20:14] LABS: Alveolar/Arterial O2 Gradient 140.2 mmHg; Base Excess ABG -2.3 mEq/l (+/-2.0); Fractional Inspired Oxygen 40 %; HCO3 ABG 24.9 mEq/l (22.0-26.0); Oxygen Content ABG 13.9 %vol (16.0-22.0); Oxygen Saturation ABG 94.5 % (95.0-100.0); Oxyhemoglobin 92.8 % THb (90.0-100.0); PCO2 ABG 54.8 mmHg (35.0-45.0); PO2 FiO2 Ratio Arterial Blood 2.05 %; Total Hemoglobin 10.6 g/dL (12.0-18.0)
--- NOTE | 2021-10-15 20:15 | PM.EVENT ---
Event Note Event Note Event Note: Called to patient's bedside secondary to patient not responding very well. Patient's ABG showed mild acidosis with hypercarbia. Patient was repositioned in the bed and patient began to arouse and states he has not recurred the episode that had just happened. Patient is able to states that he is at [facility] and he is here because he has been hallucinating and seeing people and animals in his house that are not present. Patient is alert oriented x4.
[2021-10-15 20:18] LABS: Device NASAL CANNULA; Modified Allen's Test Pass; Site Drawn RIGHT RADIAL; pH ABG 7.276 (7.350-7.450)
[2021-10-15 20:38] LABS: Ammonia < 9 umol/L (9-30)
--- NOTE | 2021-10-15 23:18 | ADMGEN ---
This patient, Zack Dai, was admitted to IMU Room 203-01 on 10/15/21 at 2250. Patient/family oriented to hospital policies and general routines including ID bracelet, bed and alarms, visiting hours, pain management, procedures, bathroom and other care routines, personal items, smoking policy, room service/diet, and visiting hours. Information on how to activate the Rapid Response Team has been discussed. Patient/Family are encouraged to report perceived risks to care and to ask questions if they do not understand what they are told or what they should do.
[2021-10-16] VITALS (19 sets, daily range): BP systolic 93–114; BP diastolic 36–74; PULSE 52–73; RESP 19–24; TEMP 36.5–37.6; O2SAT 95–100
[2021-10-16 01:27] LABS: Alveolar/Arterial O2 Gradient 189.7 mmHg; Base Excess ABG -0.8 mEq/l (+/-2.0); Fractional Inspired Oxygen 50 %; HCO3 ABG 26.3 mEq/l (22.0-26.0); Oxygen Content ABG 14.3 %vol (16.0-22.0); Oxygen Saturation ABG 97.1 % (95.0-100.0); Oxyhemoglobin 95.5 % THb (90.0-100.0); PCO2 ABG 55.8 mmHg (35.0-45.0); PO2 FiO2 Ratio Arterial Blood 2.08 %; Total Hemoglobin 10.5 g/dL (12.0-18.0)
[2021-10-16 01:28] LABS: pH ABG 7.292 (7.350-7.450)
[2021-10-16 01:29] LABS: Device BIPAP; Expiratory Pressure 7 cmH2O; Inspiratory Pressure 14 cmH2O; Modified Allen's Test Unable to perform; Site Drawn RIGHT BRACHIAL
[2021-10-16 02:34] LABS: Glucose Point of Care 128 mg/dl (65-105)
[2021-10-16 05:28] LABS: Basophils Absolute Auto 0.1 K/mm3 (0.0-0.1); Basophils Percent Auto 0.6 % (0.2-1.2); Eosinophils Absolute Auto 0.1 K/mm3 (0-0.3); Eosinophils Percent Auto 1.5 % (0-4.4); Hematocrit 31.6 % (42.0-52.0); Hemoglobin 9.5 g/dL (14.0-18.0); Immature Granulocyte Absolute 0.03 K/mm3 (0.00-0.031); Immature Granulocyte Percent A 0.4 % (0-0.5); Lymphocytes Absolute Auto 0.89 K/mm3 (0.9-3.2); Mean Corpuscular HGB Conc 30.1 g/dl (32-36); Mean Corpuscular Hemoglobin 25.9 pg (26-34); Mean Corpuscular Volume 86.1 fl (80-100); Mean Platelet Volume 10.8 fl (7.4-10.4); Monocytes Absolute Auto 0.9 K/mm3 (0.1-0.6); Monocytes Percent Auto 11.3 % (2.6-8.5); Neutrophils Absolute Auto 6.1 K/mm3 (1.3-6.7); Neutrophils Percent Auto 75.2 % (45.5-73.1); Platelet Count Result 318 k/mm3 (150-375); Red Blood Count 3.67 M/mm3 (4.6-6.20); Red Cell Distribution Width 17.7 % (11.5-14.5); White Blood Count 8.1 K/mm3 (4.5-10.0)
[2021-10-16 05:39] LABS: Alanine Aminotransferase 17 U/L (6-50); Alkaline Phosphatase 87 U/L (38-126); Anion Gap 5 mmol/L (8-16); Aspartate Amino Transferase 42 U/L (17-59); Bilirubin,Total 0.9 mg/dL (0.2-1.3); Blood Urea Nitrogen 25 mg/dL (9-20); Calcium 8.4 mg/dL (8.4-10.2); Carbon Dioxide 33 mmol/L (22-30); Chloride 98 mmol/L (98-107); Estimated CRCL calculation 54 ml/min; Estimated Glomerular Filt Rate 46; Glucose 95 mg/dL (65-110); Magnesium 2.3 mg/dL (1.6-2.3); Phosphorus 4.8 mg/dL (2.5-4.5); Potassium 4.7 mmol/L (3.4-5.0); Sodium 136 mmol/L (137-145)
--- NOTE | 2021-10-16 08:52 | PM.IMPN ---
Progress Note: A&P Assessment and Plan (1) Hallucinations: Code(s): R44.3 - Hallucinations, unspecified Status: Acute Assessment and Plan: Neurology consult pending, likely multifactorial (2) Pulmonary vascular congestion: Code(s): R09.89 - Other specified symptoms and signs involving the circulatory and respiratory systems Status: Acute Assessment and Plan: Gentle diuresis with 40 mg IV once daily, monitor output closely (3) TRACY (acute kidney injury): Code(s): N17.9 - Acute kidney failure, unspecified Status: Acute Assessment and Plan: Likely secondary to hypervolemic renal congestion as creatinine has come down with diuresis from 1.7 yesterday to 1.5 today (4) COPD (chronic obstructive pulmonary disease): Code(s): J44.9 - Chronic obstructive pulmonary disease, unspecified Status: Acute Assessment and Plan: Will resume home medications. Subjective Date/time seen: 10/16/21 08:52 Interval history: Patient resting comfortably in bed. No overnight events noted. No chest pain or shortness of breath. No nausea, vomiting or diarrhea. No fevers or chills. Review of Systems Review of Systems: ROS unobtainable: Yes other (Unobtainable secondary to BiPAP) Exam Narrative: General: No acute distress, alert and oriented per baseline HEENT: Atraumatic, normocephalic, mucous membranes moist CV: Regular rate and rhythm, S1, S2 Lungs: Coarse breath sounds throughout, diminished at bases Abdomen: Soft, nontender, nondistended Extremities: Normal to inspection Skin: No rashes noted, no lesions or wounds seen Psych: Euthymic, normal affect Objective Data Vital Signs Vital Signs: Vital Signs - 24 hr 10/15/21 12:01 10/15/21 14:00 10/15/21 14:17 Temperature 97.8 F Pulse Rate 62 61 60 Respiratory Rate 18 17 19 Blood Pressure 151/53 H 144/59 H Pulse Oximetry 99 92 90 Oxygen Delivery Room Air Oxygen Flow Rate Fraction of Inspired Oxygen 10/15/21 14:32 10/15/21 16:05 10/15/21 18:00 Temperature Pulse Rate 62 78 78 Respiratory Rate 22 H 18 22 H Blood Pressure 156/71 H 152/78 H 148/76 H Pulse Oximetry 95 99 98 Oxygen Delivery Oxygen Flow Rate Fraction of Inspired Oxygen 10/15/21 19:44 10/15/21 21:49 10/15/21 22:50 Temperature 98.3 F Pulse Rate 80 88 66 Respiratory Rate 18 22 H 22 H Blood Pressure 138/76 174/92 H 177/73 H Pulse Oximetry 99 94 91 Oxygen Delivery Oxygen Flow Rate Fraction of Inspired Oxygen 10/15/21 22:50 10/15/21 23:13 10/16/21 00:00 Temperature Pulse Rate 66 Respiratory Rate Blood Pressure Pulse Oximetry 91 99 Oxygen Delivery Nasal Cannula BiPAP Oxygen Flow Rate 4 50 Fraction of Inspired Oxygen 10/16/21 00:05 10/16/21 00:06 10/16/21 00:00 Temperature Pulse Rate 68 63 Respiratory Rate 20 Blood Pressure Pulse Oximetry 95 96 Oxygen Delivery BiPAP BiPAP Oxygen Flow Rate Fraction of Inspired Oxygen 50 10/16/21 02:00 10/16/21 02:00 10/16/21 03:43 Temperature 99.6 F 99.6 F Pulse Rate 60 62 64 Respiratory Rate 20 20 Blood Pressure 105/45 L 107/50 L Pulse Oximetry 100 100 Oxygen Delivery Oxygen Flow Rate Fraction of Inspired Oxygen 10/16/21 04:00 10/16/21 04:00 10/16/21 01:15 Temperature Pulse Rate 55 L 64 Respiratory Rate 19 Blood Pressure Pulse Oximetry 100 99 Oxygen Delivery BiPAP BiPAP Oxygen Flow Rate 50 Fraction of Inspired Oxygen 10/16/21 04:54 10/15/21 22:54 10/16/21 06:00 Temperature Pulse Rate 61 68 63 Respiratory Rate 20 Blood Pressure Pulse Oximetry 100 Oxygen Delivery BiPAP Oxygen Flow Rate Fraction of Inspired Oxygen 10/16/21 08:00 Temperature 99 F Pulse Rate 62 Respiratory Rate 22 H Blood Pressure 102/45 L Pulse Oximetry 99 Oxygen Delivery Oxygen Flow Rate Fraction of Inspired Oxygen Intake/Output Intake/Output: Intake & Outpu
--- NOTE | 2021-10-16 08:54 | WPDNEURCNPN ---
Assessment and Plan Assessment and plan (1) DTs (delirium tremens): Code(s): F10.931 - Alcohol use, unspecified with withdrawal delirium Status: Acute (2) Seizure: Code(s): R56.9 - Unspecified convulsions Status: Acute Plan 1 encephalopathy 2 impending delirium tremens 3 rule out seizures Consult date: 10/16/21 Time Seen: 08:15 Reason for consult: Hallucinations HPI: Zack Dai is a 71 year old male admitted to the hospital through the emergency room for the complaints of hallucinations. as per the information available from the emergency room record Patient was at the bedside in the emergency room reported to the personnel that over the last the patient has been complaining of seeing people and animals into his room and also the times he complained of double vision, recently was taken off his medication that is amiodarone by his cargo vessel stewardess, he he complained of double vision at times and recently he was taken of his medication amiodarone by his cargo vessel stewardess though he did not complain of any chest pain subsequently. Also it was reported that he had fallen sec secondary to weakness without any obvious trauma to his head. 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 has been taking multiple medication which particularly include ropinirole 1 mg tablet 3 times a day metoprolol 75 mg q.8 hours Stan [employer] and stent mg daily rivaroxaban 20 mg daily atorvastatin 40 mg daily furosemide 40 mg twice a day, and he is not known to be allergic to any medication initial exam in the emergency room was normal and subsequent evaluation included the routine lab which documented hemoglobin 8.2 and rest of the lab normal including CT scan of the head which was negative for any bleed but documented bilateral chronic occipital and left frontal and basal ganglia infarct Review of Systems Review of Systems: All systems reviewed & are unremarkable except as noted in HPI and below PMFSH Past Medical History Medical History Abdominal distension Alcohol abuse Asbestosis Atrial fibrillation with rapid ventricular response BMI 34.0-34.9,adult BMI over 35 Chronic hypercapnic respiratory failure COPD (chronic obstructive pulmonary disease) COPD (chronic obstructive pulmonary disease) with emphysema Coronary artery disease Followed by Dr. Hill Encounter for immunization (04/03/15) Essential hypertension History of ventricular fibrillation VFib arrest during cardiac catheterization December 2018 and subsequent cardiogenic shock cardiac in her aortic balloon pump emergent echo demonstrating EF of 35% Hypercholesterolemia Ileus, unspecified Irritation of eye Irritation of left eye Lumbar spondylosis with myelopathy Paroxysmal atrial fibrillation Restless leg STEMI (ST elevation myocardial infarction) Tobacco use Surgical History Surgical History History of cardiac catheterization December 2018: High-grade stenosis of left main coronary, moderate to severe diffuse disease of proximal to mid LAD, high-grade eccentric ulcerated plaque in the mid segment of the dominant RCA. During catheterization the patient went into VFib arrest much shock x1 Hx of CABG CABG with [place] to LAD, left radial artery to OM 2, reverse saphenous vein graft 2 p.o. be of RCA performed by Dr. Worrell December 2019 at [facility]. Family History Family History Mother Bone cancer Father Alcoholism Sib
[2021-10-16] MEDS: FUROSEMIDE INJ 40 MG/4 ML VIAL IV PUSH (09:05)
[2021-10-16 09:36] LABS: Alveolar/Arterial O2 Gradient 113.3 mmHg; Base Excess ABG 3.3 mEq/l (+/-2.0); Device BIPAP; Fractional Inspired Oxygen 40 %; HCO3 ABG 29.5 mEq/l (22.0-26.0); Modified Allen's Test Pass; Oxygen Content ABG 13.9 %vol (16.0-22.0); Oxygen Saturation ABG 97.8 % (95.0-100.0); Oxyhemoglobin 96.3 % THb (90.0-100.0); PCO2 ABG 53.1 mmHg (35.0-45.0); PO2 ABG 110.8 mmHg (80.0-100.0); PO2 FiO2 Ratio Arterial Blood 2.77 %; Site Drawn RIGHT RADIAL; Total Hemoglobin 10.1 g/dL (12.0-18.0); pH ABG 7.362 (7.350-7.450)
[2021-10-16 09:37] LABS: Expiratory Pressure 7 cmH2O; Inspiratory Pressure 15 cmH2O
[2021-10-17] VITALS (22 sets, daily range): BP systolic 93–129; BP diastolic 43–88; PULSE 64–81; RESP 17–24; TEMP 36.6–37.2; O2SAT 90–98
--- NOTE | 2021-10-17 09:24 | WPDNEUROLOGY ---
Neurology EEG Report General Information Date of Study: 10/16/21 TEST eeg DIAGNOSIS Hallucinations CONDITION OF RECORDING awake drowsy and sleep EEG NUMBER [id number] CLINICAL HISTORY unable to get much information from patient is very drowsy EEG DESCRIPTION background rhythm consists of low-voltage 8 to 10 hertz per 2nd alpha posteriorly admixed with low-voltage 15 to 21 hertz per 2nd beta. Intermittent low to medium voltage 6 to 7 hertz per 2nd theta activity seen during drowsiness. Hyperventilation not done. Photic stimulation not done. Bilateral symmetrical sleep activity seen during sleep. Non paroxysmal. Nonfocal. Non lateralizing. IMPRESSION No significant abnormalities noted
[2021-10-17] MEDS: FUROSEMIDE INJ 40 MG/4 ML VIAL IV PUSH (09:41)
[2021-10-17] MEDS: ALBUTEROL SULFATE (*SP) AEROSOL 1 PUFF 2 PUFF INHALATION (10:05)
--- NOTE | 2021-10-17 10:13 | PM.IMPN ---
Progress Note: A&P Assessment and Plan (1) Hallucinations: Code(s): R44.3 - Hallucinations, unspecified Status: Acute Assessment and Plan: Neurology consult pending, likely multifactorial 10/17: Eeg nonspecific, neurology recommendations pending (2) Pulmonary vascular congestion: Code(s): R09.89 - Other specified symptoms and signs involving the circulatory and respiratory systems Status: Acute Assessment and Plan: Gentle diuresis with 40 mg IV once daily, monitor output closely 10/17: Appears euvolemic, will switch back to home p.o. dose (3) TRACY (acute kidney injury): Code(s): N17.9 - Acute kidney failure, unspecified Status: Acute Assessment and Plan: Likely secondary to hypervolemic renal congestion as creatinine has come down with diuresis from 1.7 yesterday to 1.5 today 10/17: Labs pending (4) COPD (chronic obstructive pulmonary disease): Code(s): J44.9 - Chronic obstructive pulmonary disease, unspecified Status: Acute Assessment and Plan: Will resume home medications. (5) Diabetes mellitus: Qualifiers: Diabetes mellitus complication status: without complication Diabetes mellitus snf insulin use: without snf use Diabetes mellitus type: type 2 Qualified Code(s): E11.9 - Type 2 diabetes mellitus without complications Code(s): E11.9 - Type 2 diabetes mellitus without complications Status: Acute Assessment and Plan: A1c pending, continue Accu-Cheks and sliding scale insulin (6) Hypokalemia: Code(s): E87.6 - Hypokalemia Status: Acute Assessment and Plan: Recheck pending (7) QT prolongation: Code(s): R94.31 - Abnormal electrocardiogram [ECG] [EKG] Status: Acute (8) Restless leg: Code(s): G25.81 - Restless legs syndrome Status: Acute (9) BMI over 35: Status: Acute (10) CAD (coronary artery disease): Qualifiers: Associated angina: unspecified whether angina present Coronary Disease-Associated Artery/Lesion type: unspecified vessel or lesion type [place] vs. transplanted heart: unspecified whether [place] or transplanted heart Qualified Code(s): I25.10 - Atherosclerotic heart disease of [place] coronary artery without angina pectoris Code(s): I25.10 - Atherosclerotic heart disease of [place] coronary artery without angina pectoris Status: Acute Assessment and Plan: Appreciate cardiology consultation Subjective Date/time seen: 10/17/21 10:13 Interval history: Patient states he has not any hallucinations today. No overnight events noted. No chest pain or shortness of breath. No nausea, vomiting or diarrhea. No fevers or chills. Review of Systems Review of Systems: 12 point review of systems was assessed and was negative except as noted in the HPI Exam Narrative: General: No acute distress, alert and oriented per baseline HEENT: Atraumatic, normocephalic, mucous membranes moist CV: Regular rate and rhythm, S1, S2, soft murmur noted Lungs: Coarse breath sounds throughout, diminished at bases Abdomen: Soft, nontender, nondistended Extremities: Normal to inspection Skin: No rashes noted, no lesions or wounds seen Psych: Euthymic, normal affect Objective Data Vital Signs Vital Signs: Vital Signs - 24 hr 10/16/21 12:00 10/16/21 14:00 10/16/21 12:00 Temperature 98.5 F Pulse Rate 67 66 Respiratory Rate 24 H Blood Pressure 114/36 L Pulse Oximetry 96 96 Oxygen Delivery Nasal Cannula Oxygen Flow Rate 2 10/16/21 16:00 10/16/21 16:00 10/16/21 16:00 Temperature 98.8 F Pulse Rate 65 66 Respiratory Rate 22 H Blood Pressure 93/38 L Pulse Oximetry 97 96 Oxygen Delivery Nasal Cannula Oxygen Flow Rate 2 10/16/21 19:15 10/16/21 18:00 10/16/21 20:00 Temperature 99.7 F H Pulse Rate 73 71 Respiratory Rate 22 H Blood Pressure 106/40 L Pulse Oximetry 97 97 Oxyge
--- NOTE | 2021-10-17 11:16 | PM.CNCAR ---
Assessment and Plan Assessment and plan (1) Hallucinations: Code(s): R44.3 - Hallucinations, unspecified Status: Acute Plan This is a 71-year-old man with chronic coronary artery disease status post surgical revascularization in 2019 because of multivessel disease and left main involvement. He also has a history of paroxysmal atrial fibrillation. He has been treated for the last 4 months or so with amiodarone as he was hospitalized for quite a while in the month of May and was being seen for both atrial fib and atrial flutter. At that time he had a good clinical response to sotalol of the drug was stopped because of QT prolongation. Because of his hallucinations his amiodarone was discontinued by my partner last week in the office. He has been anticoagulated with Xarelto and for some reason that does not appear to show up on his home medication list. The recommendation according to my partner was to have the patient referred to the arrhythmia center where he can see an computer forensics examiner provide further treatment options of his atrial fibrillation. If there are any other questions regarding medication that he should be taking or the appearance of his electrocardiogram please let me know. John Ocampo MD [facility] History of Present Illness History of Present Illness Consult date/time: 10/17/21 11:16 Reason For Visit: CHF Exacerbation, Hallucinations Narrative: This is a 71-year-old patient who is known to our service and receives his care through my partner, Dr. Hill. The patient has a history of coronary artery disease and a history of atrial fibrillation. He was hospitalized yesterday because of visual hallucinations. The patient states that this started within the last couple of weeks and describes that he is seeing people in his home that do not exist. He is also seeing animals in his home that he knows of course do not exist either. He was brought to the hospital emergency room apparently because his family became concerned about these issues and he was then admitted. We I am consulted to see him today because he has an abnormal ECG and it says because of confusion regarding his medications. The patient has electrocardiogram demonstrating sinus rhythm with first-degree AV block otherwise a relatively a benign-looking cardiogram. He was just seen in our office as it happens last week by our nurse practitioner and because of these hallucinatory symptoms was taken off of amiodarone apparently for the possible concerned that these represented symptoms from his antiarrhythmic agent. The patient has no cardiovascular complaints currently. He has a history of coronary artery disease presenting initially in December of 2018 with acute coronary syndrome. He was brought to the cardiac catheterization lab found to have multivessel artery disease with severe left main involvement. Surgery was recommended the patient receiving an ARNALDO graft to the LAD a radial artery graft to the 2nd marginal and a saphenous vein graft to the posterolateral branch of the right coronary. He does have a history of severe COPD with a prior history of heavy tobacco abuse. The patient also apparently has a history of sleep apnea and is been largely intolerant of CPAP treatment he typically takes his mask off at night and does not tolerated. Review of Systems Constitutional: Constitutional: Reports difficulty sleeping Eyes: Eyes: Reports no additional eye complaints ENT: Reports system reviewed and no additional complaints, except as documented Cardiovascular: Cardiovascular: Reports no additional cardiovascular complaints Respiratory: Respiratory: Reports no additional respiratory complaints Gastrointestinal: Gastrointestinal: Reports no additional gastrointestinal complaints Musculoskeletal: Musculoskeletal: Reports back pain Integumentary/Breasts: Skin/Breast: Reports system reviewed and no additional complaints, except as docu Neurolo
[2021-10-17] MEDS: PANTOPRAZOLE 40 MG TABLET PO (13:43)
[2021-10-17] MEDS: rOPINIRole HCL 0.5 MG TABLET PO ×2 (13:43→17:36)
[2021-10-17] MEDS: POTASSIUM CHLORIDE 20 MEQ TABLET.ER PO (13:44)
[2021-10-17] MEDS: LOSARTAN POTASSIUM 25 MG TABLET PO (13:44)
[2021-10-17] MEDS: SPIRONOLACTONE 25 MG TABLET PO (13:44)
[2021-10-17] MEDS: METOPROLOL SUCCINATE EXT REL 100 MG TABCR 200 MG PO (13:44)
[2021-10-17] MEDS: ASPIRIN 81 MG ENTERIC TABLET PO (13:44)
[2021-10-17] MEDS: FUROSEMIDE 40 MG TABLET PO (17:36)
[2021-10-17] MEDS: ATORVASTATIN 40 MG TABLET PO (20:15)
[2021-10-17] MEDS: ALBUTEROL SULFATE NEB 2.5 MG/3 ML INH INHALATION ×2 (20:27→22:47)
[2021-10-17 20:33] LABS: Hemoglobin A1C 6.9 % (<5.7)
[2021-10-18] VITALS (23 sets, daily range): BP systolic 94–135; BP diastolic 47–83; PULSE 63–76; RESP 16–28; TEMP 36.6–38.1; O2SAT 87–100
[2021-10-18] MEDS: ALBUTEROL SULFATE NEB 2.5 MG/3 ML INH INHALATION ×3 (02:08→19:45)
--- NOTE | 2021-10-18 02:42 | PCRCNOTE ---
apnea link was not completed due to patient experiencing shortness of breath; pt was placed on NIV after prn neb tx
--- NOTE | 2021-10-18 03:24 | PC.NURSE ---
Patient refusing to wear BIPAP. Multiple times patient took off BIPAP and stated some serene was in the room and wanted to wear it so he took it off for him. Pt alert and oriented at this time. Will continue to monitor.
[2021-10-18 06:27] LABS: Basophils Percent Auto 0.4 % (0.2-1.2); Eosinophils Absolute Auto 0.4 K/mm3 (0-0.3); Eosinophils Percent Auto 3.9 % (0-4.4); Hematocrit 31.5 % (42.0-52.0); Hemoglobin 9.6 g/dL (14.0-18.0); Immature Granulocyte Absolute 0.04 K/mm3 (0.00-0.031); Immature Granulocyte Percent A 0.4 % (0-0.5); Lymphocytes Absolute Auto 1.07 K/mm3 (0.9-3.2); Mean Corpuscular HGB Conc 30.5 g/dl (32-36); Mean Corpuscular Hemoglobin 25.5 pg (26-34); Mean Corpuscular Volume 83.8 fl (80-100); Mean Platelet Volume 10.3 fl (7.4-10.4); Monocytes Absolute Auto 1.1 K/mm3 (0.1-0.6); Monocytes Percent Auto 11.4 % (2.6-8.5); Neutrophils Absolute Auto 7.1 K/mm3 (1.3-6.7); Neutrophils Percent Auto 72.9 % (45.5-73.1); Platelet Count Result 356 k/mm3 (150-375); Red Blood Count 3.76 M/mm3 (4.6-6.20); Red Cell Distribution Width 17.5 % (11.5-14.5); White Blood Count 9.7 K/mm3 (4.5-10.0)
[2021-10-18 06:44] LABS: Anion Gap 5 mmol/L (8-16); Blood Urea Nitrogen 17 mg/dL (9-20); Calcium 8.1 mg/dL (8.4-10.2); Carbon Dioxide 34 mmol/L (22-30); Chloride 94 mmol/L (98-107); Estimated CRCL calculation 106 ml/min; Estimated Glomerular Filt Rate 60; Glucose 150 mg/dL (65-110); Potassium 4.2 mmol/L (3.4-5.0); Sodium 133 mmol/L (137-145)
[2021-10-18] MEDS: POTASSIUM CHLORIDE 20 MEQ TABLET.ER PO (08:27)
[2021-10-18] MEDS: rOPINIRole HCL 0.5 MG TABLET PO ×3 (08:27→17:27)
[2021-10-18] MEDS: LOSARTAN POTASSIUM 25 MG TABLET PO (08:28)
[2021-10-18] MEDS: ASPIRIN 81 MG ENTERIC TABLET PO (08:28)
[2021-10-18] MEDS: SPIRONOLACTONE 25 MG TABLET PO (08:28)
[2021-10-18] MEDS: PANTOPRAZOLE 40 MG TABLET PO (08:28)
[2021-10-18] MEDS: METOPROLOL SUCCINATE EXT REL 100 MG TABCR 200 MG PO (08:28)
[2021-10-18] MEDS: FUROSEMIDE 40 MG TABLET PO ×2 (08:28→17:26)
[2021-10-18 10:30] LABS: Alveolar/Arterial O2 Gradient 69.9 mmHg; Base Excess ABG 7.3 mEq/l (+/-2.0); Carboxyhemoglobin 0.3 % THb (0-2.0); Fractional Inspired Oxygen 32 %; HCO3 ABG 33.2 mEq/l (22.0-26.0); Methemoglobin ABG 0.3 %THb (0-1.5); Oxygen Content ABG 13.6 %vol (16.0-22.0); Oxygen Saturation ABG 97.2 % (95.0-100.0); Oxyhemoglobin 95.4 % THb (90.0-100.0); PCO2 ABG 53.9 mmHg (35.0-45.0); PO2 ABG 95.2 mmHg (80.0-100.0); PO2 FiO2 Ratio Arterial Blood 2.97 %; pH ABG 7.407 (7.350-7.450)
[2021-10-18 10:32] LABS: Device NASAL CANNULA; Modified Allen's Test Pass; Site Drawn RIGHT RADIAL
[2021-10-18 16:29] LABS: Glucose Point of Care 141 mg/dl (65-105)
--- NOTE | 2021-10-18 16:35 | PM.IMPN ---
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 dose 10/18: Remains euvolemic on oral Lasix (3) TRACY (acute kidney injury): Code(s): N17.9 - Acute kidney failure, unspecified Status: Acute Assessment and Plan: Likely secondary to hypervolemic renal congestion as creatinine has come down with diuresis from 1.7 yesterday to 1.5 today 10/17: Creatinine 1.2 10/18: Resolved, creatinine 1.3 (4) COPD (chronic obstructive pulmonary disease): Code(s): J44.9 - Chronic obstructive pulmonary disease, unspecified Status: Acute Assessment and Plan: Will resume home medications. (5) Diabetes mellitus: Qualifiers: Diabetes mellitus type: type 2 Diabetes mellitus assistant terminal manager insulin use: without assistant terminal manager use Diabetes mellitus complication status: without complication Qualified Code(s): E11.9 - Type 2 diabetes mellitus without complications Code(s): E11.9 - Type 2 diabetes mellitus without complications Status: Acute Assessment and Plan: A1c 6.9, continue Accu-Cheks and sliding scale insulin (6) Hypokalemia: Code(s): E87.6 - Hypokalemia Status: Acute Assessment and Plan: Resolved (7) QT prolongation: Code(s): R94.31 - Abnormal electrocardiogram [ECG] [EKG] Status: Acute (8) Restless leg: Code(s): G25.81 - Restless legs syndrome Status: Acute (9) BMI over 35: Status: Acute (10) CAD (coronary artery disease): Qualifiers: Coronary Disease-Associated Artery/Lesion type: unspecified vessel or lesion type [place] vs. 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 No overnight events noted. No chest pain or shortness of breath. No nausea, vomiting or diarrhea. No fevers or chills. Later in the day, called by nursing staff that patient had episode of diaphoresis and fever of 101.5? F. rest of vital signs were essentially within normal limits. Patient had no other symptoms. He did appear to be more somnolent than earlier but was easily arousable and alert and oriented to self. Review of Systems Review of Systems: ROS unobtainable: Yes unobtainable due to mental status Exam Narrative: General: Lying in bed, admits to having hallucinations that he is aware are not real HEENT: Atraumatic, normocephalic, mucous membranes moist CV: Regular rate and rhythm, S1, S2 Lungs: Clear to auscultation bilaterally, no rales or crackles noted, no wheezes, good ai
[2021-10-18 17:15] LABS: Lactic Acid Reflex 0.8 mmol/L (0.7-2.0)
[2021-10-18 17:18] LABS: Alanine Aminotransferase 18 U/L (6-50); Albumin Level 3.9 g/dL (3.5-5.1); Alkaline Phosphatase 79 U/L (38-126); Anion Gap 5 mmol/L (8-16); Aspartate Amino Transferase 36 U/L (17-59); Bilirubin,Total 1.2 mg/dL (0.2-1.3); Blood Urea Nitrogen 15 mg/dL (9-20); Calcium 8.2 mg/dL (8.4-10.2); Carbon Dioxide 35 mmol/L (22-30); Chloride 94 mmol/L (98-107); Estimated CRCL calculation 98 ml/min; Estimated Glomerular Filt Rate 55; Glucose 148 mg/dL (65-110); Potassium 4.4 mmol/L (3.4-5.0); Sodium 134 mmol/L (137-145)
[2021-10-18 17:20] LABS: Basophils Percent Auto 0.4 % (0.2-1.2); Eosinophils Absolute Auto 0.4 K/mm3 (0-0.3); Eosinophils Percent Auto 4.8 % (0-4.4); Hematocrit 30.4 % (42.0-52.0); Hemoglobin 9.6 g/dL (14.0-18.0); Immature Granulocyte Absolute 0.03 K/mm3 (0.00-0.031); Immature Granulocyte Percent A 0.3 % (0-0.5); Lymphocytes Absolute Auto 0.97 K/mm3 (0.9-3.2); Lymphocytes Percent Auto 10.9 % (18.3-44.2); Mean Corpuscular HGB Conc 31.6 g/dl (32-36); Mean Corpuscular Hemoglobin 25.8 pg (26-34); Mean Corpuscular Volume 81.7 fl (80-100); Mean Platelet Volume 10.3 fl (7.4-10.4); Monocytes Percent Auto 11.1 % (2.6-8.5); Neutrophils Absolute Auto 6.5 K/mm3 (1.3-6.7); Neutrophils Percent Auto 72.5 % (45.5-73.1); Platelet Count Result 361 k/mm3 (150-375); Red Blood Count 3.72 M/mm3 (4.6-6.20); Red Cell Distribution Width 17.6 % (11.5-14.5); White Blood Count 8.9 K/mm3 (4.5-10.0)
[2021-10-18] MEDS: RIVAROXABAN 15 MG TABLET PO (17:27)
[2021-10-18 17:36] LABS: Troponin I 0.018 ng/mL (0.000-0.034)
[2021-10-18 18:41] LABS: Procalcitonin 0.1 ng/mL
[2021-10-18] MEDS: THIAMINE HCL INJ 100 MG, FOLIC ACID INJ 1 MG, MULTIVITAMINS-12 INJ VIAL 1 5 ML, MULTIVI... 125 MG IV CONT (19:57)
[2021-10-18 20:01] LABS: Alveolar/Arterial O2 Gradient 13.5 mmHg; Base Excess ABG 6.4 mEq/l (+/-2.0); Device NON-INVASIVE VENT; Fractional Inspired Oxygen 30 %; HCO3 ABG 33.2 mEq/l (22.0-26.0); Modified Allen's Test Pass; Non-Invasive Vent Rate 12 /MIN; Oxygen Content ABG 14.3 %vol (16.0-22.0); Oxygen Saturation ABG 98.4 % (95.0-100.0); Oxyhemoglobin 96.9 % THb (90.0-100.0); PCO2 ABG 59.9 mmHg (35.0-45.0); PO2 FiO2 Ratio Arterial Blood 4.33 %; Site Drawn RIGHT RADIAL; Total Hemoglobin 10.3 g/dL (12.0-18.0); pH ABG 7.361 (7.350-7.450)
[2021-10-18 20:02] LABS: Non-Invasive Expiratory Pressure 7 CMH2O; Non-Invasive Inspiratory Pressure 14 CMH2O
[2021-10-18 20:04] LABS: INR 2.2
[2021-10-18 20:18] LABS: Magnesium 1.9 mg/dL (1.6-2.3); Phosphorus 3.6 mg/dL (2.5-4.5)
--- NOTE | 2021-10-18 20:27 | PC.NURSE ---
This patient, Zack Dai, was received from [[id number] ] to room 231 on 10/18/21 at 2020. Patient/family oriented to unit policies and routines. report received from alvin cruz.
--- NOTE | 2021-10-18 20:30 | PC.NURSE ---
Walked into room and found pt extremely diaphoretic and minimally responsive. Iv site leaking paint roller covers supervisor called stat vs ordered and stat blood sugar done. Respiratory called to place pt back on bipap. Breath sound extremely diminished and accesory muscle use noted. EKG and stat AG's ordered. Iv restarted. Pt to be transferred to IMU report called to RN .
--- NOTE | 2021-10-18 20:34 | PC.NURSE ---
Pt transferred per bed to IMU with bipap remaining on at this time. Called and spoke with and daughter in law regarding pt deterioration and change in status and transfer to IMU. Dr Bhat aware of changes and transfer. Spoke with Lola BENITEZ taking over pt and updates given.
[2021-10-18 20:39] LABS: Glucose Point of Care 188 mg/dl (65-105)
[2021-10-18] MEDS: THIAMINE HCL INJ 500 MG in SODIUM CHLORIDE 0.9% IV 100 ML 200 MG IVPB (21:54)
[2021-10-18] MEDS: FOLIC ACID 1 MG/0.2 ML INJ IV PUSH (21:54)
[2021-10-19] VITALS (18 sets, daily range): BP systolic 109–157; BP diastolic 48–66; PULSE 46–71; RESP 20–28; TEMP 36.2–36.5; O2SAT 83–100
[2021-10-19] MEDS: THIAMINE HCL INJ 500 MG in SODIUM CHLORIDE 0.9% IV 100 ML 200 MG IVPB ×3 (05:26→21:47)
[2021-10-19 05:47] LABS: Basophils Absolute Auto 0.1 K/mm3 (0.0-0.1); Basophils Percent Auto 0.8 % (0.2-1.2); Eosinophils Absolute Auto 0.5 K/mm3 (0-0.3); Eosinophils Percent Auto 6.4 % (0-4.4); Hematocrit 30.8 % (42.0-52.0); Hemoglobin 9.4 g/dL (14.0-18.0); Immature Granulocyte Absolute 0.03 K/mm3 (0.00-0.031); Immature Granulocyte Percent A 0.4 % (0-0.5); Lymphocytes Percent Auto 12.3 % (18.3-44.2); Mean Corpuscular HGB Conc 30.5 g/dl (32-36); Mean Corpuscular Hemoglobin 25.6 pg (26-34); Mean Corpuscular Volume 83.9 fl (80-100); Mean Platelet Volume 10.4 fl (7.4-10.4); Monocytes Absolute Auto 0.9 K/mm3 (0.1-0.6); Monocytes Percent Auto 11.8 % (2.6-8.5); Neutrophils Percent Auto 68.3 % (45.5-73.1); Platelet Count Result 327 k/mm3 (150-375); Red Blood Count 3.67 M/mm3 (4.6-6.20); Red Cell Distribution Width 17.5 % (11.5-14.5); White Blood Count 7.3 K/mm3 (4.5-10.0)
[2021-10-19 05:55] LABS: Anion Gap 3 mmol/L (8-16); Blood Urea Nitrogen 12 mg/dL (9-20); Carbon Dioxide 36 mmol/L (22-30); Chloride 95 mmol/L (98-107); Estimated CRCL calculation 66 ml/min; Estimated Glomerular Filt Rate 60; Glucose 115 mg/dL (65-110); Potassium 4.2 mmol/L (3.4-5.0); Sodium 134 mmol/L (137-145)
--- NOTE | 2021-10-19 09:15 | PC.NURSE ---
Spoke with Dr. Brown regarding patient orientation and breathing. Pt now A&O x4, awake and talking with non-labored breathing. New order to remove BiPAP and place patient on RA. May administer O2 as needed
[2021-10-19] MEDS: LOSARTAN POTASSIUM 25 MG TABLET PO (09:21)
[2021-10-19] MEDS: rOPINIRole HCL 0.5 MG TABLET PO ×3 (09:21→17:45)
[2021-10-19] MEDS: ASPIRIN 81 MG ENTERIC TABLET PO (09:21)
[2021-10-19] MEDS: METOPROLOL SUCCINATE EXT REL 100 MG TABCR 200 MG PO (09:21)
[2021-10-19] MEDS: PANTOPRAZOLE 40 MG TABLET PO (09:21)
[2021-10-19] MEDS: POTASSIUM CHLORIDE 20 MEQ TABLET.ER PO (09:21)
[2021-10-19] MEDS: FUROSEMIDE 40 MG TABLET PO (09:21)
[2021-10-19] MEDS: SPIRONOLACTONE 25 MG TABLET PO (09:21)
--- NOTE | 2021-10-19 09:26 | PM.IMPN ---
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 dose 10/18: Remains euvolemic on oral Lasix 10/19: CXR showed slight increase in pleural effusion, will give IV lasix today, especially in light of hypoxic episode overnight (3) COPD (chronic obstructive pulmonary disease): Code(s): J44.9 - Chronic obstructive pulmonary disease, unspecified Status: Acute Assessment and Plan: Will resume home medications. (4) Diabetes mellitus: Qualifiers: Diabetes mellitus complication status: without complication Diabetes mellitus fdc insulin use: without fdc use Diabetes mellitus type: type 2 Qualified Code(s): E11.9 - Type 2 diabetes mellitus without complications Code(s): E11.9 - Type 2 diabetes mellitus without complications Status: Acute Assessment and Plan: A1c 6.9, well controlled here, consistently under 200, d/c accuchecks (5) Hypokalemia: Code(s): E87.6 - Hypokalemia Status: Acute Assessment and Plan: Resolved, monitor (6) QT prolongation: Code(s): R94.31 - Abnormal electrocardiogram [ECG] [EKG] Status: Acute Assessment and Plan: avoid Qt prolonging medications (7) Restless leg: Code(s): G25.81 - Restless legs syndrome Status: Acute (8) BMI over 35: Status: Acute (9) CAD (coronary artery disease): Qualifiers: Associated angina: unspecified whether angina present Coronary Disease-Associated Artery/Lesion type: unspecified vessel or lesion type [place] vs. transplanted heart: unspecified whether [place] or transplanted heart Qualified Code(s): I25.10 - Atherosclerotic heart disease of [place] coronary artery without angina pectoris Code(s): I25.10 - Atherosclerotic heart disease of [place] coronary artery without angina pectoris Status: Acute Assessment and Plan: Appreciate cardiology consultation (10) Alcohol abuse: Code(s): F10.10 - Alcohol abuse, uncomplicated Status: Acute Assessment and Plan: Suspect patient has underlying Wernicke-Korsakoff syndrome, continue thiamine and banana bag, EtOH was undetectable on admission (11) Diastolic CHF: Code(s): I50.30 - Unspecified diastolic (congestive) heart failure Status: Acute Assessment and Plan: echo from 05/05 showed grade II diastolic HF, EF 65-70%, appears stable, somewhat hypervolemic, lasix 40 mg IV q8h today d/t pleural effusion, recheck tomorrow and de-escalate to oral diuresis as able (12) Sleep apnea: Code(s): G47.30 - Sleep apnea, unspecified Status: Acute Assessment and Plan: ApneaLink pending, may need nocturnal oxygen vs CPAP Plan 10/18: Check chest x-ray, urinalysis, check blood in urine cultures and start vancomycin cefepime secondary to patient's fever today, suspect underlying atelectasis encourage incentive spirometer use 10/19: CXR showed pleural effusion, IV lasic today, reassess Blood cultures pending UA negative, no urine culture needed Abx d/c at this time PCT, LA, troponin all negative for acute changes Suspect fever was 2/2 atelectasis, monitor today off abx, follow blood cultures Subjective Date/time seen:
[2021-10-19] MEDS: FOLIC ACID 1 MG/0.2 ML INJ IV PUSH (09:54)
[2021-10-19 11:23] LABS: Appearance Urine Clear (Clear); Bilirubin Urine Negative (Negative); Blood Urine Negative (Negative); Color Urine Yellow (Yellow); Glucose Urine UA Negative (Negative); Ketones Urine Negative (Negative); Leukocyte Esterase Ur Negative LEU/UL (NEGATIVE); Nitrate Urine Negative (Negative); Protein Urine Negative (Negative); Specific Grav Ur 1.015 (1.001-1.035)
[2021-10-19 11:26] LABS: Add Urine Microscopic? NO
--- NOTE | 2021-10-19 11:44 | P.CDI_ITS ---
CDI Query Clarification Request 10/17 Security Police Officer documented: History of Present Illness Consult date/time: 10/17/21? 11:16 Reason For Visit: (CHF Exacerbation), Hallucinations 10/19 Hospitalist documented: Pulmonary vascular congestion: ?Code(s): R09.89 - Other specified symptoms and signs involving the circulatory and respiratory systems ?Status:?Acute ?Assessment and Plan: Gentle diuresis with 40 mg IV once daily, monitor output closely 10/17: Appears euvolemic, will switch back to home p.o. dose 10/18:? Remains euvolemic on oral Lasix 10/19: CXR showed slight increase in pleural effusion, will give IV lasix today, especially in light of hypoxic episode overnight Please clarify if CHF exacerbation is ruled in or ruled out or unable to determine <Lauren Heath - Last Filed: 10/19/21 11:48> 10/17 Security Police Officer documented: History of Present Illness Consult date/time: 10/17/21? 11:16 Reason For Visit: (CHF Exacerbation), Hallucinations 10/19 Hospitalist documented: Pulmonary vascular congestion: ?Code(s): R09.89 - Other specified symptoms and signs involving the circulatory and respiratory systems ?Status:?Acute ?Assessment and Plan: Gentle diuresis with 40 mg IV once daily, monitor output closely 10/17: Appears euvolemic, will switch back to home p.o. dose 10/18:? Remains euvolemic on oral Lasix 10/19: CXR showed slight increase in pleural effusion, will give IV lasix today, especially in light of hypoxic episode overnight Please clarify if CHF exacerbation is ruled in or ruled out or unable to determine Unable to determine <Erika Brown DO - Last Filed: 10/19/21 17:35>
[2021-10-19] MEDS: FUROSEMIDE INJ 40 MG/4 ML VIAL IV PUSH ×2 (13:02→21:47)
[2021-10-19 13:06] LABS: Alveolar/Arterial O2 Gradient 16.4 mmHg; Base Excess ABG 5.5 mEq/l (+/-2.0); Device NASAL CANNULA; Fractional Inspired Oxygen 28 %; HCO3 ABG 32.4 mEq/l (22.0-26.0); Modified Allen's Test Pass; Oxygen Content ABG 14.7 %vol (16.0-22.0); Oxygen Saturation ABG 97.8 % (95.0-100.0); Oxyhemoglobin 96.6 % THb (90.0-100.0); PCO2 ABG 59.7 mmHg (35.0-45.0); PO2 ABG 112.8 mmHg (80.0-100.0); PO2 FiO2 Ratio Arterial Blood 4.03 %; Site Drawn RIGHT RADIAL; Total Hemoglobin 10.7 g/dL (12.0-18.0); pH ABG 7.352 (7.350-7.450)
[2021-10-19] MEDS: RIVAROXABAN 15 MG TABLET PO (17:45)
[2021-10-19] MEDS: ATORVASTATIN 40 MG TABLET PO (20:06)
[2021-10-20] VITALS (24 sets, daily range): BP systolic 124–139; BP diastolic 42–71; PULSE 54–73; RESP 16–24; TEMP 36.1–37.2; O2SAT 91–100
[2021-10-20] MEDS: FUROSEMIDE INJ 40 MG/4 ML VIAL IV PUSH ×2 (05:47→22:05)
[2021-10-20 07:10] LABS: Basophils Absolute Auto 0.1 K/mm3 (0.0-0.1); Basophils Percent Auto 0.8 % (0.2-1.2); Eosinophils Absolute Auto 0.6 K/mm3 (0-0.3); Eosinophils Percent Auto 6.5 % (0-4.4); Hematocrit 35.4 % (42.0-52.0); Hemoglobin 10.8 g/dL (14.0-18.0); Immature Granulocyte Absolute 0.03 K/mm3 (0.00-0.031); Immature Granulocyte Percent A 0.3 % (0-0.5); Lymphocytes Absolute Auto 0.78 K/mm3 (0.9-3.2); Lymphocytes Percent Auto 8.7 % (18.3-44.2); Mean Corpuscular HGB Conc 30.5 g/dl (32-36); Mean Corpuscular Hemoglobin 25.8 pg (26-34); Mean Corpuscular Volume 84.7 fl (80-100); Mean Platelet Volume 10.2 fl (7.4-10.4); Monocytes Percent Auto 10.6 % (2.6-8.5); Neutrophils Absolute Auto 6.6 K/mm3 (1.3-6.7); Neutrophils Percent Auto 73.1 % (45.5-73.1); Platelet Count Result 406 k/mm3 (150-375); Red Blood Count 4.18 M/mm3 (4.6-6.20); Red Cell Distribution Width 17.8 % (11.5-14.5)
[2021-10-20 07:24] LABS: Anion Gap 4 mmol/L (8-16); Blood Urea Nitrogen 13 mg/dL (9-20); Calcium 8.5 mg/dL (8.4-10.2); Carbon Dioxide 39 mmol/L (22-30); Chloride 89 mmol/L (98-107); Estimated CRCL calculation 66 ml/min; Estimated Glomerular Filt Rate 60; Glucose 128 mg/dL (65-110); Potassium 4.4 mmol/L (3.4-5.0); Sodium 132 mmol/L (137-145)
[2021-10-20] MEDS: THIAMINE HCL INJ 500 MG in SODIUM CHLORIDE 0.9% IV 100 ML 200 MG IVPB ×3 (07:33→22:06)
[2021-10-20 08:10] LABS: Alveolar/Arterial O2 Gradient 80.4 mmHg; Base Excess ABG 9.8 mEq/l (+/-2.0); Fractional Inspired Oxygen 35 %; HCO3 ABG 36.8 mEq/l (22.0-26.0); Oxygen Content ABG 15.1 %vol (16.0-22.0); Oxyhemoglobin 95.7 % THb (90.0-100.0); PO2 ABG 95.7 mmHg (80.0-100.0); PO2 FiO2 Ratio Arterial Blood 2.73 %; Total Hemoglobin 11.1 g/dL (12.0-18.0); pH ABG 7.383 (7.350-7.450)
[2021-10-20 08:14] LABS: Device BIPAP; Modified Allen's Test Pass; PCO2 ABG 63.2 mmHg (35.0-45.0); Site Drawn RIGHT RADIAL
[2021-10-20 08:15] LABS: Expiratory Pressure 7 cmH2O; Inspiratory Pressure 14 cmH2O
--- NOTE | 2021-10-20 08:23 | PM.IMPN ---
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 dose 10/18: Remains euvolemic on oral Lasix 10/19: CXR showed slight increase in pleural effusion, will give IV lasix today, especially in light of hypoxic episode overnight 10/20: Lasix given yesterday, good UOP noted, recheck CXR today, cont IV diuresis, add fluid restriction d/t hyponatremia, d/c losartan for now, cont aldactone, potassium 20 mEq, and lasix 40 mg IV Q8h, concern for diastolic HF exacerbation, start oscar for Is/Os, appreciate cardio consult, pulm consulted today for continued hypercapnia, ?OHS (3) COPD (chronic obstructive pulmonary disease): Code(s): J44.9 - Chronic obstructive pulmonary disease, unspecified Status: Acute Assessment and Plan: Will resume home medications, does not appear to be in exacerbation 10/20: Patient started with some wheezes today, will start DuoNebs and steroids and assess response (4) Diabetes mellitus: Qualifiers: Diabetes mellitus complication status: without complication Diabetes mellitus correction insulin use: without correction use Diabetes mellitus type: type 2 Qualified Code(s): E11.9 - Type 2 diabetes mellitus without complications Code(s): E11.9 - Type 2 diabetes mellitus without complications Status: Acute Assessment and Plan: A1c 6.9, well controlled here, consistently under 200, d/c accuchecks (5) Hypokalemia: Code(s): E87.6 - Hypokalemia Status: Acute Assessment and Plan: Resolved, monitor, on potassium + aldactone (6) QT prolongation: Code(s): R94.31 - Abnormal electrocardiogram [ECG] [EKG] Status: Acute Assessment and Plan: avoid Qt prolonging medications (7) Restless leg: Code(s): G25.81 - Restless legs syndrome Status: Acute Assessment and Plan: cont home med (8) BMI over 35: Status: Acute (9) CAD (coronary artery disease): Qualifiers: Associated angina: unspecified whether angina present Coronary Disease-Associated Artery/Lesion type: unspecified vessel or lesion type [place] vs. transplanted heart: unspecified whether [place] or transplanted heart Qualified Code(s): I25.10 - Atherosclerotic heart disease of [place] coronary artery without angina pectoris Code(s): I25.10 - Atherosclerotic heart disease of [place] coronary artery without angina pectoris Status: Acute Assessment and Plan: Appreciate cardiology consultation (10) Alcohol abuse: Code(s): F10.10 - Alcohol abuse, uncomplicated Status: Acute Assessment and Plan: Suspect patient has underlying Wernicke-Korsakoff syndrome, continue thiamine and banana bag, EtOH was undetectable on admission (11) Diastolic CHF: Code(s): I50.30 - Unspecified diastolic (congestive) heart failure Status: Acute Assessment and Plan: echo from 05/05 showed grade II diastolic HF, EF 65-70%, appears stable, somewhat hypervolemic, lasix 40 mg IV q8h today d/t pleural effusion, recheck tomorrow and de-escalate to oral diuresis as able 10/20: see above for plan, cont lasix IV, check CXR, appreciate cardiology consultation, strict Is
[2021-10-20] MEDS: METOPROLOL SUCCINATE EXT REL 100 MG TABCR 200 MG PO (09:14)
[2021-10-20] MEDS: SPIRONOLACTONE 25 MG TABLET PO (09:14)
[2021-10-20] MEDS: rOPINIRole HCL 0.5 MG TABLET PO ×3 (09:14→17:28)
[2021-10-20] MEDS: ASPIRIN 81 MG ENTERIC TABLET PO (09:14)
[2021-10-20] MEDS: PANTOPRAZOLE 40 MG TABLET PO (09:14)
[2021-10-20] MEDS: POTASSIUM CHLORIDE 20 MEQ TABLET.ER PO (09:15)
[2021-10-20] MEDS: FOLIC ACID 1 MG/0.2 ML INJ IV PUSH (12:48)
--- NOTE | 2021-10-20 13:02 | PM.CNPUL ---
Assessment and Plan Assessment and plan (1) Acute respiratory failure with hypoxia: Code(s): J96.01 - Acute respiratory failure with hypoxia Status: Acute Assessment and Plan: He normally does not use O2 at home. He looks as if he is going to qualify for O2 at discharge. Saturation was 99% on 3 L/min today. With O2 off, saturation fell to 88% in 10 minutes. He is now on O2 at 1 L/min. He had pulmonary vascular congestion, a slight increased in BNP, low Na+, and is better with diuresis. Echo 05/10/2021 LV EF estimated at 65-70%. Grade II diastolic dysfunction. His acute hypoxemia may be a combination of untreated COPD, subclinical hypothyroidism, volume overload without CHF. He does not have pneumonia and does not have a COPD exacerbation. He did not have any change in his baseline cough or sputum. He will need out patient f/u for his O2 use, COPD, NPPV and medication adjustment. (2) Chronic hypercapnic respiratory failure: Code(s): J96.12 - Chronic respiratory failure with hypercapnia Status: Acute Assessment and Plan: He has elevated pCO2 on his ABG for over a year, mostly with values 45-55. His pH has been compensated. Will treat for COPD, add a non-invasive positive pressure at night, AVAPS ordered for this evening and arrange for one to use at home. Check ABG in the am. He will not need to go for sleep testing since he has respiratory failure due to COPD, and he does not need to prove that he has ANGEL LUIS to get treatment. He has an elevated BMI, and the question of obesity hypoventilation was raised as a cause for his high pCO2. It is possible, but that is a diagnosis of exclusion, and this serene has untreated COPD as his likely cause for the ABG abnormalities. He really needs to keep his follow up appointment. His was agreeable to this. He has been a mess at home, difficult to care for, and she wants to make sure he gets follow up. 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 Has paraseptal emphysema on chest CT. He is untreated other than rescue albuterol using this daily, a nebulizer 5+ days a week and albuterol rescue inhaler several times a day. He needs a long acting triple medication - on the formulary we have Trelegy. Will start this at the 100/62.5/25 dose in the am and stop the ipratropium as it is an anticholinergic, overlaps with umeclidinium in the Trelegy. He just was changed to Solumedrol 60 mg a day today. This will be further weaned and changed to oral prednisone in 1-2 days. He is still wheezing significantly. (4) History of tobacco abuse: Code(s): Z87.891 - Personal history of nicotine dependence Status: Acute Assessment and Plan: smoked for years, quit 2019 with his CABG, had 54 pack year history; he is a candidate for low dose lung cancer screening Had a CTA 06/20/2020 - no PE, mild paraseptal emphysema He could be scheduled for a LDCT after discharge Plan PLAN: Wean O2 to 1 L/min, home O2 testing before discharge; He has not used O2 at home, may need on discharge. He is not a compliant patient, and may over-use o2 which can have risks including increased CO2 retention. AVAPS at night; TV 500 ml, rate 20, max pressure 25 cm, min pressure 6 cm, EPAP 5. Plan for him to go home on AVAPS AE; this is a much better option than testing for sleep apnea. He meets criteria for NPPV. Treatment of COPD; he is on no controller medications. Start Trelegy 100, stop ipratropium and change albuterol nebs t
[2021-10-20] MEDS: ALBUTEROL SULFATE NEB 2.5 MG/3 ML INH INHALATION ×2 (15:38→20:04)
[2021-10-20] MEDS: methylPREDNISolone SOD SUCC 125 MG VIAL 60 MG IV PUSH (17:27)
[2021-10-20] MEDS: RIVAROXABAN 15 MG TABLET PO (17:28)
[2021-10-20] MEDS: IPRATROPIUM BR 0.02% INH SOLN 0.5 MG/2.5 ML VIAL INHALATION (20:04)
[2021-10-20] MEDS: ATORVASTATIN 40 MG TABLET PO (22:05)
[2021-10-21] VITALS (21 sets, daily range): BP systolic 93–131; BP diastolic 40–67; PULSE 55–69; RESP 14–24; TEMP 36.4–37.2; O2SAT 90–99
--- NOTE | 2021-10-21 02:32 | PC.NURSE ---
Pt placed on BIPAP w/AVAPS settings and set up with an apnea link study per RT on 10/20/21 2141. 2340-Pt pulled off BIPAP and sleep study equipment. Pt A&O x1 at this time. Pt reoriented and BIPAP and sleep study equipment reapplied. 10/21/21 0030-Pt again pulled of BIPAP mask and apnea link study equipment. Pt stating I don't need this and I'm not wearing it . Pt thinks that he is at home in his bedroom at this time. Pt again reoriented and equipment and BIPAP reapplied. CCT placed at Pt's bedside to sit with Pt for safety and to redirect. 8-CCT called out stating that Pt again pulled off BIPAP mask and damaged the BIPAP hose. RN assessed Pt and found Pt with the BIPAP mask off and the BIPAP hose shredded. RT notified of findings and the need for BIPAP hose to be replaced. RT to bedside and removed BIPAP and terminated apnea link study. Pt placed back on O2 at 2L NC. Will continue to monitor Pt closely.
[2021-10-21 05:15] LABS: Basophils Percent Auto 0.1 % (0.2-1.2); Hematocrit 32.4 % (42.0-52.0); Hemoglobin 10.1 g/dL (14.0-18.0); Immature Granulocyte Absolute 0.03 K/mm3 (0.00-0.031); Immature Granulocyte Percent A 0.4 % (0-0.5); Lymphocytes Absolute Auto 0.37 K/mm3 (0.9-3.2); Lymphocytes Percent Auto 5.3 % (18.3-44.2); Mean Corpuscular HGB Conc 31.2 g/dl (32-36); Mean Corpuscular Hemoglobin 25.7 pg (26-34); Mean Corpuscular Volume 82.4 fl (80-100); Mean Platelet Volume 10.1 fl (7.4-10.4); Monocytes Absolute Auto 0.1 K/mm3 (0.1-0.6); Monocytes Percent Auto 1.7 % (2.6-8.5); Neutrophils Absolute Auto 6.4 K/mm3 (1.3-6.7); Neutrophils Percent Auto 92.5 % (45.5-73.1); Platelet Count Result 385 k/mm3 (150-375); Red Blood Count 3.93 M/mm3 (4.6-6.20); Red Cell Distribution Width 17.3 % (11.5-14.5); White Blood Count 6.9 K/mm3 (4.5-10.0)
[2021-10-21 05:27] LABS: Anion Gap 2 mmol/L (8-16); Blood Urea Nitrogen 21 mg/dL (9-20); Calcium 8.4 mg/dL (8.4-10.2); Carbon Dioxide 37 mmol/L (22-30); Chloride 93 mmol/L (98-107); Estimated CRCL calculation 56 ml/min; Estimated Glomerular Filt Rate 50; Glucose 198 mg/dL (65-110); Potassium 4.4 mmol/L (3.4-5.0); Sodium 132 mmol/L (137-145)
[2021-10-21] MEDS: THIAMINE HCL INJ 500 MG in SODIUM CHLORIDE 0.9% IV 100 ML 200 MG IVPB ×3 (05:52→23:17)
[2021-10-21] MEDS: FUROSEMIDE INJ 40 MG/4 ML VIAL IV PUSH ×3 (05:52→23:17)
[2021-10-21] MEDS: LEVOTHYROXINE SODIUM 50 MCG TABLET PO (05:52)
[2021-10-21] MEDS: METOPROLOL SUCCINATE EXT REL 100 MG TABCR 200 MG PO (09:35)
[2021-10-21] MEDS: methylPREDNISolone SOD SUCC 125 MG VIAL 60 MG IV PUSH (09:35)
[2021-10-21] MEDS: FOLIC ACID 1 MG/0.2 ML INJ IV PUSH (09:36)
[2021-10-21] MEDS: PANTOPRAZOLE 40 MG TABLET PO (09:36)
[2021-10-21] MEDS: POTASSIUM CHLORIDE 20 MEQ TABLET.ER PO (09:36)
[2021-10-21] MEDS: SPIRONOLACTONE 25 MG TABLET PO (09:36)
[2021-10-21] MEDS: ASPIRIN 81 MG ENTERIC TABLET PO (09:36)
[2021-10-21] MEDS: rOPINIRole HCL 0.5 MG TABLET PO ×2 (09:36→17:51)
--- NOTE | 2021-10-21 09:44 | PC.NURSE ---
Patient was placed on AVAP at 05:40 this morning. tolerating well. During morning assessment patient is a&o x3. will have respiratory draw morning ABG while patient is on AVAP settings.
[2021-10-21] MEDS: FLUTICASONE/UMECLIDIN/VILANTER 100-62.5-25 MCG ELLIPTA 1 PUFF INHALATION (10:22)
--- NOTE | 2021-10-21 10:25 | PC.NURSE ---
Patient ABG was drawn while patient was wearing AVAP and had been wearing for approx 4 hours 15 minutes.
[2021-10-21 10:38] LABS: Alveolar/Arterial O2 Gradient 69.5 mmHg; Base Excess ABG 8.1 mEq/l (+/-2.0); Carboxyhemoglobin 0.3 % THb (0-2.0); Fractional Inspired Oxygen 30 %; HCO3 ABG 34.8 mEq/l (22.0-26.0); Methemoglobin ABG 0.2 %THb (0-1.5); Oxygen Content ABG 14.3 %vol (16.0-22.0); Oxygen Saturation ABG 94.1 % (95.0-100.0); Oxyhemoglobin 92.8 % THb (90.0-100.0); PO2 ABG 73.6 mmHg (80.0-100.0); PO2 FiO2 Ratio Arterial Blood 2.45 %; Reduced Hemoglobin 6.7 %THb (0-5.0); Total Hemoglobin 10.9 g/dL (12.0-18.0); pH ABG 7.379 (7.350-7.450)
[2021-10-21 10:42] LABS: PCO2 ABG 60.3 mmHg (35.0-45.0)
[2021-10-21 10:43] LABS: Device NON-INVASIVE VENT; Site Drawn LEFT BRACHIAL
--- NOTE | 2021-10-21 11:26 | PC.NURSE ---
Dr. Abel Ordered apnea link for [facility]. Give Seroquel. ABG to be drawn at 06:00 while patient is wearing AVAP.
--- NOTE | 2021-10-21 14:22 | PM.IMPN ---
Progress Note: A&P Assessment and Plan (1) Hallucinations: Code(s): R44.3 - Hallucinations, unspecified Status: Acute Assessment and Plan: Neurology consult pending, likely multifactorial will try low dose seroquel at (2) Pulmonary vascular congestion: Code(s): R09.89 - Other specified symptoms and signs involving the circulatory and respiratory systems Status: Acute Assessment and Plan: improved (3) COPD (chronic obstructive pulmonary disease): Code(s): J44.9 - Chronic obstructive pulmonary disease, unspecified Status: Acute Assessment and Plan: Continue nebs and steroids (4) Diabetes mellitus: Qualifiers: Diabetes mellitus type: type 2 Diabetes mellitus jail insulin use: without jail use Diabetes mellitus complication status: without complication Qualified Code(s): E11.9 - Type 2 diabetes mellitus without complications Code(s): E11.9 - Type 2 diabetes mellitus without complications Status: Acute Assessment and Plan: A1c 6.9, well controlled here, consistently under 200, d/c accuchecks (5) Hypokalemia: Code(s): E87.6 - Hypokalemia Status: Acute Assessment and Plan: Resolved, monitor (6) QT prolongation: Code(s): R94.31 - Abnormal electrocardiogram [ECG] [EKG] Status: Acute Assessment and Plan: avoid Qt prolonging medications (7) Restless leg: Code(s): G25.81 - Restless legs syndrome Status: Acute Assessment and Plan: cont home med (8) BMI over 35: Status: Acute (9) CAD (coronary artery disease): Qualifiers: Coronary Disease-Associated Artery/Lesion type: unspecified vessel or lesion type [place] vs. transplanted heart: unspecified whether [place] or transplanted heart Associated angina: unspecified whether angina present Qualified Code(s): I25.10 - Atherosclerotic heart disease of [place] coronary artery without angina pectoris Code(s): I25.10 - Atherosclerotic heart disease of [place] coronary artery without angina pectoris Status: Acute Assessment and Plan: Appreciate cardiology consultation (10) Alcohol abuse: Code(s): F10.10 - Alcohol abuse, uncomplicated Status: Acute Assessment and Plan: Suspect patient has underlying Wernicke-Korsakoff syndrome, continue thiamine and banana bag, EtOH was undetectable on admission (11) Diastolic CHF: Code(s): I50.30 - Unspecified diastolic (congestive) heart failure Status: Acute Assessment and Plan: echo from 05/05 showed grade II diastolic HF, EF 65-70%, appears stable, somewhat hypervolemic, lasix 40 mg IV q8h today d/t pleural effusion, recheck tomorrow and de-escalate to oral diuresis as able 10/20: see above for plan, cont lasix IV, check CXR, appreciate cardiology consultation, strict Is/Os with celestina (12) Sleep apnea: Code(s): G47.30 - Sleep apnea, unspecified Status: Acute Assessment and Plan: ApneaLink pending, patient will receive abg in am after being on AVAPS overnight as they were unable to get him to avaps for the entire night las tnight. Await results for tomorrow (13) Obesity hypoventilation syndrome: Code(s): E66.2 - Morbid (severe) obesity with alveolar hypoventilation Status: Acute Assessment and Plan: see plan above Subjective Date/time seen: 10/21/21 14:22 alert and oriented. Exam Narrative: General: Lying in bed, alert and oriented x3, no complaints HEENT: Atraumatic, normocephalic, mucous membranes moist CV: Regular rate and rhythm, S1, S2 Lungs: End expiratory wheezes noted today, still with fairly good air entry Abdomen: Soft, nontender, nondistended Extremities: Normal to inspection Skin: No rashes noted, no lesions or wounds seen Psych: Euthymic, normal affect Objective Data Vital Signs Vital Signs: Vital Signs - 24 hr 10/20/21 15:40 10/20/21
[2021-10-21] MEDS: RIVAROXABAN 15 MG TABLET PO (17:51)
[2021-10-21] MEDS: QUEtiapine FUMARATE 25 MG TABLET PO (21:23)
[2021-10-21] MEDS: ATORVASTATIN 40 MG TABLET PO (21:23)
[2021-10-21] MEDS: ALBUTEROL SULFATE NEB 2.5 MG/3 ML INH INHALATION (22:04)
[2021-10-22] VITALS (19 sets, daily range): BP systolic 104–132; BP diastolic 37–61; PULSE 49–71; RESP 18–24; TEMP 36.1–36.6; O2SAT 91–99
[2021-10-22 05:21] LABS: Basophils Percent Auto 0.1 % (0.2-1.2); Hematocrit 31.1 % (42.0-52.0); Hemoglobin 9.7 g/dL (14.0-18.0); Immature Granulocyte Absolute 0.04 K/mm3 (0.00-0.031); Immature Granulocyte Percent A 0.3 % (0-0.5); Lymphocytes Absolute Auto 0.74 K/mm3 (0.9-3.2); Mean Corpuscular HGB Conc 31.2 g/dl (32-36); Mean Corpuscular Hemoglobin 25.7 pg (26-34); Mean Corpuscular Volume 82.3 fl (80-100); Mean Platelet Volume 9.8 fl (7.4-10.4); Monocytes Absolute Auto 0.7 K/mm3 (0.1-0.6); Monocytes Percent Auto 5.6 % (2.6-8.5); Neutrophils Absolute Auto 10.8 K/mm3 (1.3-6.7); Platelet Count Result 391 k/mm3 (150-375); Red Blood Count 3.78 M/mm3 (4.6-6.20); Red Cell Distribution Width 17.8 % (11.5-14.5); White Blood Count 12.3 K/mm3 (4.5-10.0)
[2021-10-22 05:46] LABS: Anion Gap 4 mmol/L (8-16); Blood Urea Nitrogen 37 mg/dL (9-20); Calcium 8.4 mg/dL (8.4-10.2); Carbon Dioxide 38 mmol/L (22-30); Chloride 94 mmol/L (98-107); Estimated CRCL calculation 53 ml/min; Estimated Glomerular Filt Rate 46; Glucose 151 mg/dL (65-110); Potassium 4.5 mmol/L (3.4-5.0); Sodium 136 mmol/L (137-145)
[2021-10-22 06:28] LABS: Alveolar/Arterial O2 Gradient 113.1 mmHg; Base Excess ABG 7.8 mEq/l (+/-2.0); Carboxyhemoglobin 0.3 % THb (0-2.0); Fractional Inspired Oxygen 35 %; HCO3 ABG 34.7 mEq/l (22.0-26.0); Methemoglobin ABG 0.3 %THb (0-1.5); Oxygen Content ABG 13.1 %vol (16.0-22.0); Oxygen Saturation ABG 91.3 % (95.0-100.0); PO2 ABG 64.5 mmHg (80.0-100.0); PO2 FiO2 Ratio Arterial Blood 1.84 %; Reduced Hemoglobin 10.4 %THb (0-5.0); Total Hemoglobin 10.4 g/dL (12.0-18.0); pH ABG 7.366 (7.350-7.450)
[2021-10-22 06:29] LABS: PCO2 ABG 61.9 mmHg (35.0-45.0)
[2021-10-22 06:30] LABS: Device NON-INVASIVE VENT; Modified Allen's Test Pass; Site Drawn RIGHT RADIAL
[2021-10-22 06:32] LABS: Non-Invasive Expiratory Pressure 8 CMH2O; Non-Invasive Vent Rate 22 /MIN
[2021-10-22] MEDS: FUROSEMIDE INJ 40 MG/4 ML VIAL IV PUSH ×3 (06:54→21:11)
[2021-10-22] MEDS: THIAMINE HCL INJ 500 MG in SODIUM CHLORIDE 0.9% IV 100 ML 200 MG IVPB ×3 (06:54→21:11)
[2021-10-22] MEDS: LEVOTHYROXINE SODIUM 50 MCG TABLET PO (06:54)
[2021-10-22] MEDS: FOLIC ACID 1 MG/0.2 ML INJ IV PUSH (08:49)
[2021-10-22] MEDS: rOPINIRole HCL 0.5 MG TABLET PO ×3 (08:49→16:41)
[2021-10-22] MEDS: METOPROLOL SUCCINATE EXT REL 100 MG TABCR 200 MG PO (08:49)
[2021-10-22] MEDS: SPIRONOLACTONE 25 MG TABLET PO (08:49)
[2021-10-22] MEDS: methylPREDNISolone SOD SUCC 125 MG VIAL 60 MG IV PUSH (08:49)
[2021-10-22] MEDS: ASPIRIN 81 MG ENTERIC TABLET PO (08:55)
[2021-10-22] MEDS: POTASSIUM CHLORIDE 20 MEQ TABLET.ER PO (08:55)
[2021-10-22] MEDS: PANTOPRAZOLE 40 MG TABLET PO (08:55)
[2021-10-22] MEDS: FLUTICASONE/UMECLIDIN/VILANTER 100-62.5-25 MCG ELLIPTA 1 PUFF INHALATION (09:41)
--- NOTE | 2021-10-22 11:13 | WPDNEUROPN ---
Progress Note: A&P Assessment and Plan (1) Hallucination: Code(s): R44.3 - Hallucinations, unspecified Status: Acute Plan sun downing Seroquel worked very well last evening will continue as such Additional Plan continue Seroquel as such Time Spent With Patient Time with patient: less than 15 minutes Subjective Date/time seen: 10/22/21 11:13 Interval history: years old right-handed male was initially seen for the unspecified convulsion with history of alcohol use and also delirium tremens most recently has been having increasing confusion in the evening hours raising the possibility of sundowning patient was given Seroquel 25 mg last evening and he was able to sleep very well without any confusion or hallucinations advised the nurse to continue Seroquel 25 mg at 5:00 p.m. daily in addition all his other medication has been continued as such Review of Systems Review of Systems: All systems reviewed & are unremarkable except as noted in HPI and below Exam Const: General: cooperative, healthy appearing, comfortable and no acute distress Nutritional Appearance: overweight Orientation/consciousness: oriented to person and oriented to place HENMT: Head: normocephalic Ears: hearing grossly normal bilaterally General nose exam: Normal external nose present Face and sinus: normal facial exam Mouth: Yes Normal oral and palatal mucosa present Eyes: General: appearance normal, both eyes and all related structures Visual Samano: normal visual samano by confrontation Alignment and Position: alignment normal Periorbital: periorbital findings normal Eyelids: eyelids normal Conjunctivae: conjunctivae normal Pupils: Equal, round and reactive pupils present Neck: Neck: full ROM Resp: Effort & Inspection: normal respiratory effort Auscultation: clear to auscultation bilaterally Cardio: Rate: regular rate Rhythm: regular rhythm Skin: General skin exam: normal color Neuro: General: oriented to person and oriented to place Cranial nerves: Yes CN's II-XII intact bilaterally Cognition (Neuro): normal cognition Speech: normal speech Gait exam (Neuro): Unable to assess gait Motor exam (neuro): Pronator motor function not present, No tremor noted, No asterixis and Motor abnormalities not present Sensory Exam: Sensory deficit (Neuro) Deep tendon reflexes (DTR's): Right triceps reflex intensity grade: 1+, Left triceps reflex intensity grade: 1+, Rt Biceps (C5, C6): 1+, Left biceps reflex intensity grade: 1+, Right brachioradialis reflex intensity grade: 1+, Left brachioradialis reflex intensity grade: 1+, Right patellar reflex intensity grade: 1+, Left patellar reflex intensity grade: 1+, Right ankle reflex intensity grade: 0 and Left ankle reflex intensity grade: 0 Plantar Reflex Responses: downgoing: bilateral Coordination: pxlaro-if-siph test normal Psych: Appearance: well kempt Mental Status: mental status grossly normal Speech and movement: Normal speech and movement present Affect: normal affect Attitude: cooperative Thought process: Normal thought process present Thought content: Yes Normal thought content present Insight: Fair insight present (Psych) Judgement: Fair judgement present (Psych) Objective Data Vital Signs Vital Signs: Vital Signs - 24 hr 10/21/21 12:00 10/21/21 12:00 10/21/21 12:00 Temperature 36.8 C Pulse Rate 65 67 Respiratory Rate 18 Blood Pressure 93/67 L Pulse Oximetry 94 96 Oxygen Delivery Nasal Cannula Oxygen Flow Rate 2 Fraction of Inspired Oxygen 10/21/21 16:00 10/21/21 14:00 10/21/21 16:00 Temperature 36.9 C Pulse Rate 68 61 68 Respiratory Rate 14 Blood Pressure 95/43 L Pulse Oximetry 94 Oxygen Delivery Oxygen Flow Rate Fraction of Inspired Oxygen 10/21/21 16:00 10/21/21 18:00 10/21/21 20:00 Temperature 36.6 C Pulse Rate 67 61 Respiratory Rate 20 Blood Pressure 97/40 L Pulse Oximetry 94 95 Oxygen Delivery Nasal Cannula
--- NOTE | 2021-10-22 12:16 | PM.IMPN ---
Progress Note: A&P Assessment and Plan (1) Hallucinations: Code(s): R44.3 - Hallucinations, unspecified Status: Acute Assessment and Plan: Seroquel as help significantly. Continue this at HS (2) Pulmonary vascular congestion: Code(s): R09.89 - Other specified symptoms and signs involving the circulatory and respiratory systems Status: Acute Assessment and Plan: improved (3) COPD (chronic obstructive pulmonary disease): Code(s): J44.9 - Chronic obstructive pulmonary disease, unspecified Status: Acute Assessment and Plan: Continue nebs and steroids (4) Diabetes mellitus: Qualifiers: Diabetes mellitus type: type 2 Diabetes mellitus assisted insulin use: without assisted use Diabetes mellitus complication status: without complication Qualified Code(s): E11.9 - Type 2 diabetes mellitus without complications Code(s): E11.9 - Type 2 diabetes mellitus without complications Status: Acute Assessment and Plan: A1c 6.9, well controlled here, consistently under 200, d/c accuchecks (5) Hypokalemia: Code(s): E87.6 - Hypokalemia Status: Acute Assessment and Plan: Resolved, monitor (6) QT prolongation: Code(s): R94.31 - Abnormal electrocardiogram [ECG] [EKG] Status: Acute Assessment and Plan: avoid Qt prolonging medications (7) Restless leg: Code(s): G25.81 - Restless legs syndrome Status: Acute Assessment and Plan: cont home med (8) BMI over 35: Status: Acute (9) CAD (coronary artery disease): Qualifiers: Coronary Disease-Associated Artery/Lesion type: unspecified vessel or lesion type [place] vs. 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 Continue Lasix. (12) Sleep apnea: Code(s): G47.30 - Sleep apnea, unspecified Status: Acute Assessment and Plan: AVAps night with ABG this morning still shows CO2 retention. Defer to Pulmonary to make adjustments with AVAPS. (13) Obesity hypoventilation syndrome: Code(s): E66.2 - Morbid (severe) obesity with alveolar hypoventilation Status: Acute Assessment and Plan: see plan above Subjective Date/time seen: 10/22/21 12:16 no new complaints ABG reviewed. Still having significant CO2 retention. Exam Narrative: General: Lying in bed, alert and oriented x3, no complaints HEENT: Atraumatic, normocephalic, mucous membranes moist CV: Regular rate and rhythm, S1, S2 Lungs: End expiratory wheezes noted today, still with fairly good air entry Abdomen: Soft, nontender, nondistended Extremities: Normal to inspection Skin: No rashes noted, no lesions or wounds seen Psych: Euthymic, normal affect Objective Data Vital Signs Vital Signs: Vital Signs - 24 hr 10/21/21 16:00 10/21/21 14:00 10/21/21 16:00 Temperature 98.5 F Pulse Rate 68 61 68 Respiratory Rate 14 Blood Pressure 95/43 L Pulse Oximetry 94 Oxygen Delivery Oxygen Flow Rate Fraction of Inspired Oxygen 10/21/21 16:00 10/21/21 18:00 10/21/21 20:00 Temperature 97.9 F Pulse Rate 67 61
--- NOTE | 2021-10-22 16:01 | PM.PNPUL ---
Progress Note: A&P Assessment and Plan (1) Acute respiratory failure with hypoxia: Code(s): J96.01 - Acute respiratory failure with hypoxia Status: Acute Assessment and Plan: October 22, 2021: He normally does not use O2 at home. He looks as if he is going to qualify for O2 at discharge. He had high saturation 2 days ago on 3 L min, and this was decreased to 1 L/min. Today, he is on 35%, saturation is 94-99%, so O2 should be weaned. He is on fluid restriction, was admitted with volume overload. He had pulmonary vascular congestion, a slight increased in BNP, low Na+, and is better with diuresis. Echo 05/10/2021 LV EF estimated at 65-70%. Grade II diastolic dysfunction. His acute hypoxemia may be a combination of untreated COPD, subclinical hypothyroidism, volume overload without CHF. He does not have pneumonia and does not have a COPD exacerbation. He did not have any change in his baseline cough or sputum. He will need out patient f/u for his O2 use, COPD, NPPV and medication adjustment. (2) Chronic hypercapnic respiratory failure: Code(s): J96.12 - Chronic respiratory failure with hypercapnia Status: Acute Assessment and Plan: 10/22/2021: He has elevated pCO2 on his ABG for over a year, mostly with values 45-55. His pH has been compensated. We started treatment for COPD, and he has been on AVAPS since admission. He tells me he has been sleeping off and on today, and his AVAPS is not in the room. He was transferred from Room 231 to 258 without the AVAPS. He needs to get it, and needs to use in the say when he sleeps. AVAPS settings have been changed today 10/22/21, increased rate 22, increased TV 550, increased EPAP 8. He will not need to go for sleep testing since he has respiratory failure due to COPD, and he does not need to prove that he has ANGEL LUIS to get treatment. He has an elevated BMI, and the question of obesity hypoventilation was raised as a cause for his high pCO2. It is possible, but that is a diagnosis of exclusion, and this serene has untreated COPD as his likely cause for the ABG abnormalities. 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 Has paraseptal emphysema on chest CT. He is untreated other than rescue albuterol using this daily, a nebulizer 5+ days a week and albuterol rescue inhaler several times a day. He needs a long acting triple medication - on the formulary we have Trelegy. He is on Trelegy 100/62.5/25 dose in the am, his ipratropium as it is an anticholinergic, overlaps with umeclidinium in the Trelegy. He just was changed to Solumedrol 60 mg a day 10/20/2021; He is stable and can have his solumedrol changed to oral prednisone in 50 mg tomorrow am, not wheezing any longer. (4) History of tobacco abuse: Code(s): Z87.891 - Personal history of nicotine dependence Status: Acute Assessment and Plan: He smoked for years, quit 2018 with his CABG, had 54 pack year history; he is a candidate for low dose lung cancer screening Had a CTA 06/20/2020 - no PE, mild paraseptal emphysema He could be scheduled for a LDCT after discharge Plan PLAN: Wean O2, home O2 testing before discharge; He has not used O2 at home, may need on discharge. He is not a compliant patient, and may over-use O2 which can have risks including increased CO2 retention. AVAPS at night; TV 550 ml, rate 22, max pressure 25 cm, min pressure 6 cm, EPAP increased to 8 today.
--- NOTE | 2021-10-22 16:04 | PC.NURSE ---
This patient, Zack Dai, was received from [facility] on 10/22/21 at 1545 . Patient/family oriented to unit policies and routines
[2021-10-22] MEDS: QUEtiapine FUMARATE 25 MG TABLET PO (16:41)
[2021-10-22] MEDS: RIVAROXABAN 15 MG TABLET PO (16:41)
[2021-10-22] MEDS: ALBUTEROL SULFATE NEB 2.5 MG/3 ML INH INHALATION (16:45)
[2021-10-22] MEDS: ATORVASTATIN 40 MG TABLET PO (21:11)
[2021-10-23] VITALS (16 sets, daily range): BP systolic 98–119; BP diastolic 41–57; PULSE 49–85; RESP 16–25; TEMP 35.9–36.4; O2SAT 92–98
[2021-10-23] MEDS: FUROSEMIDE INJ 40 MG/4 ML VIAL IV PUSH (05:59)
[2021-10-23] MEDS: LEVOTHYROXINE SODIUM 50 MCG TABLET PO (06:01)
[2021-10-23] MEDS: THIAMINE HCL INJ 500 MG in SODIUM CHLORIDE 0.9% IV 100 ML 200 MG IVPB (06:02)
[2021-10-23 06:03] LABS: Basophils Percent Auto 0.1 % (0.2-1.2); Hematocrit 30.7 % (42.0-52.0); Hemoglobin 9.5 g/dL (14.0-18.0); Immature Granulocyte Absolute 0.08 K/mm3 (0.00-0.031); Immature Granulocyte Percent A 0.7 % (0-0.5); Lymphocytes Absolute Auto 0.68 K/mm3 (0.9-3.2); Lymphocytes Percent Auto 6.1 % (18.3-44.2); Mean Corpuscular HGB Conc 30.9 g/dl (32-36); Mean Corpuscular Hemoglobin 25.8 pg (26-34); Mean Corpuscular Volume 83.4 fl (80-100); Mean Platelet Volume 9.9 fl (7.4-10.4); Monocytes Absolute Auto 0.6 K/mm3 (0.1-0.6); Monocytes Percent Auto 5.4 % (2.6-8.5); Neutrophils Absolute Auto 9.8 K/mm3 (1.3-6.7); Neutrophils Percent Auto 87.7 % (45.5-73.1); Platelet Count Result 387 k/mm3 (150-375); Red Blood Count 3.68 M/mm3 (4.6-6.20); Red Cell Distribution Width 18.1 % (11.5-14.5); White Blood Count 11.2 K/mm3 (4.5-10.0)
[2021-10-23] MEDS: ACETAMINOPHEN ELIXIR 325 MG/10.15 ML UDC 650 MG PO (06:07)
[2021-10-23 06:33] LABS: Anion Gap 5 mmol/L (8-16); Blood Urea Nitrogen 50 mg/dL (9-20); Calcium 8.3 mg/dL (8.4-10.2); Carbon Dioxide 36 mmol/L (22-30); Chloride 95 mmol/L (98-107); Estimated CRCL calculation 47 ml/min; Estimated Glomerular Filt Rate 40; Glucose 145 mg/dL (65-110); Potassium 4.5 mmol/L (3.4-5.0); Sodium 136 mmol/L (137-145)
[2021-10-23] MEDS: FLUTICASONE/UMECLIDIN/VILANTER 100-62.5-25 MCG ELLIPTA 1 PUFF INHALATION (08:29)
[2021-10-23] MEDS: ASPIRIN 81 MG ENTERIC TABLET PO (08:45)
[2021-10-23] MEDS: FUROSEMIDE 40 MG TABLET PO ×2 (08:45→16:52)
[2021-10-23] MEDS: FOLIC ACID 1 MG/0.2 ML INJ IV PUSH (08:45)
[2021-10-23] MEDS: SPIRONOLACTONE 25 MG TABLET PO (08:45)
[2021-10-23] MEDS: PANTOPRAZOLE 40 MG TABLET PO (08:45)
[2021-10-23] MEDS: rOPINIRole HCL 0.5 MG TABLET PO ×3 (08:45→16:53)
[2021-10-23] MEDS: QUEtiapine FUMARATE 25 MG TABLET PO (08:46)
[2021-10-23] MEDS: METOPROLOL SUCCINATE EXT REL 100 MG TABCR 200 MG PO (08:46)
[2021-10-23] MEDS: POTASSIUM CHLORIDE 20 MEQ TABLET.ER PO (08:49)
--- NOTE | 2021-10-23 09:44 | PM.IMPN ---
Progress Note: A&P Assessment and Plan (1) Hallucinations: Code(s): R44.3 - Hallucinations, unspecified Status: Acute Assessment and Plan: Seroquel helps significantly. Continue this at HS (2) Pulmonary vascular congestion: Code(s): R09.89 - Other specified symptoms and signs involving the circulatory and respiratory systems Status: Acute Assessment and Plan: improved (3) COPD (chronic obstructive pulmonary disease): Code(s): J44.9 - Chronic obstructive pulmonary disease, unspecified Status: Acute Assessment and Plan: Continue nebs and steroids. 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 Diabetes mellitus complication status: without complication Qualified Code(s): E11.9 - Type 2 diabetes mellitus without complications Code(s): E11.9 - Type 2 diabetes mellitus without complications Status: Acute Assessment and Plan: A1c 6.9, well controlled here, consistently under 200, d/c accuchecks (5) QT prolongation: Code(s): R94.31 - Abnormal electrocardiogram [ECG] [EKG] Status: Acute Assessment and Plan: avoid Qt prolonging medications (6) Restless leg: Code(s): G25.81 - Restless legs syndrome Status: Acute Assessment and Plan: cont home med (7) BMI over 35: Status: Acute (8) CAD (coronary artery disease): Qualifiers: Coronary Disease-Associated Artery/Lesion type: unspecified vessel or lesion type [place] vs. 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 Continue Lasix. (11) Obesity hypoventilation syndrome: Code(s): E66.2 - Morbid (severe) obesity with alveolar hypoventilation Status: Acute Assessment and Plan: see plan above Subjective Date/time seen: 10/23/21 09:44 Interval history: Currently on oxygen. No issues overnight. Exam Narrative: General: Lying in bed, alert and oriented x3, no complaints HEENT: Atraumatic, normocephalic, mucous membranes moist CV: Regular rate and rhythm, S1, S2 Lungs: End expiratory wheezes noted, still with fairly good air entry Abdomen: Soft, nontender, nondistended Extremities: Normal to inspection Skin: No rashes noted, no lesions or wounds seen Psych: Euthymic, normal affect Objective Data Vital Signs Vital Signs: Vital Signs - 24 hr 10/22/21 11:55 10/22/21 12:00 10/22/21 13:14 Temperature 97.6 F Pulse Rate 58 L Respiratory Rate 20 Blood Pressure 132/57 L Pulse Oximetry 94 Oxygen Delivery Nasal Cannula Nasal Cannula Oxygen Flow Rate 1 2 Fraction of Inspired Oxygen 10/22/21 10:00 10/22/21 12:00 10/22/21 12:00 Temperature Pulse Rate 56 L 62 Respiratory Rate Blood Pressure Pulse Oximetry 94 Oxygen Delivery BiPAP Oxygen Flow Rate Fraction of Inspired Oxygen 10/22/21 16:46 10/22/21 16:48 10/22/21 16:56 Temperature Pulse Rate 65 68 Respiratory Rate 18 18 Blood Pressure Pulse Oximetry 91 Oxygen Delivery Nasal Cannula Oxygen Flow Rate
--- NOTE | 2021-10-23 10:05 | PCNWS ---
Weekly nutritional screen. Patient is tolerating current fluid restriction 1,200mL/day and heart healthy diet with adequate intake. Weight is stable. No nutritional needs at this time.
[2021-10-23] MEDS: predniSONE 20 MG TABLET 40 MG PO (11:24)
--- NOTE | 2021-10-23 12:26 | PCNSR ---
On 10/23/21, the student, Dalia Jolly, provided care and completed [facility] documentation on this patient. I have reviewed the student's documentation and agree with the findings.
[2021-10-23] MEDS: THIAMINE HCL INJ 500 MG in SODIUM CHLORIDE 0.9% IV 100 ML 100 MG IVPB (14:11)
[2021-10-23] MEDS: RIVAROXABAN 15 MG TABLET PO (16:52)
[2021-10-23] MEDS: ATORVASTATIN 40 MG TABLET PO (20:05)
[2021-10-24] VITALS (20 sets, daily range): BP systolic 91–134; BP diastolic 40–66; PULSE 49–82; RESP 16–27; TEMP 35.8–36.8; O2SAT 86–98
[2021-10-24 05:41] LABS: Basophils Percent Auto 0.1 % (0.2-1.2); Hematocrit 31.2 % (42.0-52.0); Hemoglobin 9.4 g/dL (14.0-18.0); Immature Granulocyte Absolute 0.05 K/mm3 (0.00-0.031); Immature Granulocyte Percent A 0.5 % (0-0.5); Lymphocytes Percent Auto 11.2 % (18.3-44.2); Mean Corpuscular HGB Conc 30.1 g/dl (32-36); Mean Corpuscular Hemoglobin 25.5 pg (26-34); Mean Corpuscular Volume 84.8 fl (80-100); Mean Platelet Volume 10.4 fl (7.4-10.4); Monocytes Absolute Auto 0.8 K/mm3 (0.1-0.6); Monocytes Percent Auto 7.7 % (2.6-8.5); Neutrophils Absolute Auto 8.7 K/mm3 (1.3-6.7); Neutrophils Percent Auto 80.5 % (45.5-73.1); Platelet Count Result 413 k/mm3 (150-375); Red Blood Count 3.68 M/mm3 (4.6-6.20); Red Cell Distribution Width 18.3 % (11.5-14.5); White Blood Count 10.8 K/mm3 (4.5-10.0)
[2021-10-24 05:54] LABS: Anion Gap 4 mmol/L (8-16); Blood Urea Nitrogen 60 mg/dL (9-20); Calcium 8.2 mg/dL (8.4-10.2); Carbon Dioxide 36 mmol/L (22-30); Chloride 97 mmol/L (98-107); Estimated CRCL calculation 44 ml/min; Estimated Glomerular Filt Rate 38; Glucose 142 mg/dL (65-110); Potassium 4.3 mmol/L (3.4-5.0); Sodium 137 mmol/L (137-145)
[2021-10-24] MEDS: FLUTICASONE/UMECLIDIN/VILANTER 100-62.5-25 MCG ELLIPTA 1 PUFF INHALATION (09:09)
[2021-10-24] MEDS: PANTOPRAZOLE 40 MG TABLET PO (09:15)
[2021-10-24] MEDS: QUEtiapine FUMARATE 25 MG TABLET PO (09:16)
[2021-10-24] MEDS: FOLIC ACID 1 MG/0.2 ML INJ IV PUSH (09:20)
[2021-10-24] MEDS: LEVOTHYROXINE SODIUM 50 MCG TABLET PO (09:20)
[2021-10-24] MEDS: rOPINIRole HCL 0.5 MG TABLET PO ×3 (09:20→17:19)
[2021-10-24] MEDS: FUROSEMIDE 40 MG TABLET PO ×2 (09:20→17:19)
[2021-10-24] MEDS: predniSONE 20 MG TABLET 40 MG PO (09:20)
[2021-10-24] MEDS: ASPIRIN 81 MG ENTERIC TABLET PO (09:20)
[2021-10-24] MEDS: POTASSIUM CHLORIDE 20 MEQ TABLET.ER PO (09:20)
--- NOTE | 2021-10-24 09:39 | PCRTNOTE ---
FAXED HOME TRILOGY SETUP TO [facility].
--- NOTE | 2021-10-24 11:00 | PM.IMPN ---
Progress Note: A&P Assessment and Plan (1) Hallucinations: Code(s): R44.3 - Hallucinations, unspecified Status: Acute Assessment and Plan: Seroquel helps significantly. Continue this at HS (2) Pulmonary vascular congestion: Code(s): R09.89 - Other specified symptoms and signs involving the circulatory and respiratory systems Status: Acute Assessment and Plan: improved (3) COPD (chronic obstructive pulmonary disease): Code(s): J44.9 - Chronic obstructive pulmonary disease, unspecified Status: Acute Assessment and Plan: Continue nebs and steroids. Tolerating AVAPS (4) Diabetes mellitus: Qualifiers: Diabetes mellitus type: type 2 Diabetes mellitus correction insulin use: without correction use Diabetes mellitus complication status: without complication Qualified Code(s): E11.9 - Type 2 diabetes mellitus without complications Code(s): E11.9 - Type 2 diabetes mellitus without complications Status: Acute Assessment and Plan: A1c 6.9, well controlled here, consistently under 200, d/c accuchecks (5) QT prolongation: Code(s): R94.31 - Abnormal electrocardiogram [ECG] [EKG] Status: Acute Assessment and Plan: avoid Qt prolonging medications (6) Restless leg: Code(s): G25.81 - Restless legs syndrome Status: Acute Assessment and Plan: cont home med (7) BMI over 35: Status: Acute (8) CAD (coronary artery disease): Qualifiers: Coronary Disease-Associated Artery/Lesion type: unspecified vessel or lesion type [place] vs. 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 Continue Lasix. (11) Obesity hypoventilation syndrome: Code(s): E66.2 - Morbid (severe) obesity with alveolar hypoventilation Status: Acute Assessment and Plan: see plan above Additional Plan Awaiting for AVAPS to be approved, then can be dc Subjective Date/time seen: 10/24/21 11:00 Doing okay. Exam Narrative: General: Lying in bed, alert and oriented x3, no complaints HEENT: Atraumatic, normocephalic, mucous membranes moist CV: Regular rate and rhythm, S1, S2 Lungs: End expiratory wheezes noted, still with fairly good air entry Abdomen: Soft, nontender, nondistended Extremities: Normal to inspection Skin: No rashes noted, no lesions or wounds seen Psych: Euthymic, normal affect Objective Data Vital Signs Vital Signs: Vital Signs - 24 hr 10/23/21 12:00 10/23/21 13:52 10/23/21 16:00 Temperature 97.5 F L Pulse Rate 55 L 54 L 51 L Respiratory Rate 16 Blood Pressure 98/44 L Pulse Oximetry 96 Oxygen Delivery Oxygen Flow Rate Fraction of Inspired Oxygen 10/23/21 17:59 10/23/21 19:56 10/23/21 20:00 Temperature 97.3 F L 96.7 F L Pulse Rate 62 51 L 51 L Respiratory Rate 16 18 18 Blood Pressure 119/50 L 115/46 L Pulse Oximetry 97 94 94 Oxygen Delivery Room Air Oxygen Flow Rate Fraction of Inspired Oxygen 35 10/23/21 23:17 10/24/21 00:08 10/23/21 20:00 Temperature 97.0 F L Pulse Rate 64 50 L 53 L Respiratory Rate 25 H 20 Blood Pressure 116/50 L Pu
--- NOTE | 2021-10-24 12:17 | PM.PNPUL ---
Progress Note: A&P Assessment and Plan (1) Acute respiratory failure with hypoxia: Code(s): J96.01 - Acute respiratory failure with hypoxia Status: Acute Assessment and Plan: October 22, 2021: He normally does not use O2 at home.Likely will go home on O2. He had high saturation 2 days ago on 3 L min, and this was decreased to 1 L/min. Today, on 35%, saturation is 94-99%, so O2 should be weaned. He is on fluid restriction, admitted with volume overload, pulmonary vascular congestion, a slight increased in BNP, low Na+, and is better with diuresis. Echo 05/10/2021 LV EF estimated at 65-70%. Grade II diastolic dysfunction. His acute hypoxemia may be a combination of untreated COPD, subclinical hypothyroidism, volume overload without CHF. He does not have pneumonia and does not have a COPD exacerbation. He did not have any change in his baseline cough or sputum. He will need out patient f/u for his O2 use, COPD, NPPV and medication adjustment. October 24, 2021- better; Trilogy approved, Home walk study shows 1 L/min at rest, 4 L/min with exertion. He can use 4 L/min with sleep. Can be discharged, f/u in pulm office in 2 weeks; I spoke with pt in the room and Ashley on the phone, explained use of O2, goal 90-94% on O2, more is not better. He has oximeter at home. (2) Chronic hypercapnic respiratory failure: Code(s): J96.12 - Chronic respiratory failure with hypercapnia Status: Acute Assessment and Plan: 10/22/2021: He has elevated pCO2 on his ABG for over a year, mostly with values 45-55 and this admission, into the low 60 range. His pH has been compensated. We started treatment for COPD, and he has been on AVAPS since admission. He tried and failed BiPAP. Was transferred from Room 231 to 258 without the AVAPS, needs to get it in this room for use. AVAPS settings changed today 10/22/21, increased rate 22, increased TV 550, increased EPAP 8. He will not need to go for sleep testing since he has respiratory failure due to COPD, and he does not need to prove that he has ANGEL LUIS to get treatment. He has an elevated BMI, and the question of obesity hypoventilation was raised as a cause for his high pCO2. It is possible, but that is a diagnosis of exclusion, and this serene has untreated COPD as his likely cause for the ABG abnormalities. 10/24/2021- improved. Ready for discharge. 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 Has paraseptal emphysema on chest CT. He is untreated other than rescue albuterol using this daily, a nebulizer 5+ days a week and albuterol rescue inhaler several times a day. He needs a long acting triple medication - on the formulary we have Trelegy. He is on Trelegy 100/62.5/25 dose in the am, his ipratropium as it is an anticholinergic, overlaps with umeclidinium in the Trelegy. He just was changed to Solumedrol 60 mg a day 10/20/2021; He is stable and can have his solumedrol changed to oral prednisone in 50 mg tomorrow am, not wheezing any longer. 10/24/2021- Ready for discharge, can go home on Trelegy 100, prn albuterol. (4) History of tobacco abuse: Code(s): Z87.891 - Personal history of nicotine dependence Status: Acute Assessment and Plan: He smoked for years, quit 2018 with his CABG, had 54 pack year history; he is a candidate for low dose lung cancer screening Had a CTA 06/20/2020 - no PE, mild paraseptal emphysema 10/24/2021 He could be scheduled for a LDCT after discharge
[2021-10-24] MEDS: ALBUTEROL SULFATE NEB 2.5 MG/3 ML INH INHALATION (12:18)
--- NOTE | 2021-10-24 13:16 | HOMEO2EVAL ---
Evaluation was performed at [facility] Home Oxygen Evaluation RC: Home Oxygen (O2) Evaluation Start: 10/24/21 12:27 Freq: ONCE Status: Active Protocol: RPE Activity Type Activity Date Activity User E-sign Co-sign Detail Recorded Client Recorded Date Recorded By Document 10/24/21 12:55 [email or web address] [email or web address] 10/24/21 13:16 DJO Document 10/24/21 12:56 [email or web address] [email or web address] 10/24/21 13:16 DJO Document 10/24/21 12:58 [email or web address] [email or web address] 10/24/21 13:16 DJO Document 10/24/21 13:00 [email or web address] [email or web address] 10/24/21 13:16 DJO Document 10/24/21 13:02 [email or web address] [email or web address] 10/24/21 13:16 DJO Document 10/24/21 13:04 [email or web address] [email or web address] 10/24/21 13:16 DJO 10/24/21 10/24/21 10/24/21 12:55 12:56 12:58 Home O2 Evaluation Test Phase Resting Resting Exercise Oxygen Delivery Room Air Nasal Cannula Nasal Cannula Oxygen Flow Rate (L/min) 1 1 Pulse Oximetry (90-100 %) 86 L 89 L 86 L Pulse Rate (60-100 beats/min) 59 L 55 L 60 Activity Tolerance Fair Ambulation Distance (feet) Ambulation Distance (meters) Home Oxygen Evaluation Comments Treatment Charges 10/24/21 10/24/21 10/24/21 13:00 13:02 13:04 Home O2 Evaluation Test Phase Exercise Exercise Exercise Oxygen Delivery Nasal Cannula Nasal Cannula Nasal Cannula Oxygen Flow Rate (L/min) 2 3 4 Pulse Oximetry (90-100 %) 86 L 87 L 89 L Pulse Rate (60-100 beats/min) 70 69 60 Activity Tolerance Fair Fair Fair Ambulation Distance (feet) 25 Ambulation Distance (meters) 7.61 Home Oxygen Evaluation Comments 1LPM AT REST, 4LPM WITH ACTIVITY. Treatment Charges O2 Evaluation - Inpatient
--- NOTE | 2021-10-24 13:17 | PCRCNOTE ---
HOME 02 EVALUATION SET UP WITH ROSEANNA PT. REQUIRES 1LPM AT REST AND 4LPM WITH ACTIVITY.
--- NOTE | 2021-10-24 13:36 | PM.DS ---
DS: Admitting Diagnosis Discharge Date October 24, 2021 Admitting Diagnosis Hypercapnic respiratory failure DS: Discharge Diagnosis Discharge Diagnosis (1) Hallucinations: Code(s): R44.3 - Hallucinations, unspecified Status: Acute Assessment and Plan: Seroquel helps significantly. Continue this at HS (2) Pulmonary vascular congestion: Code(s): R09.89 - Other specified symptoms and signs involving the circulatory and respiratory systems Status: Acute Assessment and Plan: improved Patient will be discharged on diuretic therapy. (3) COPD (chronic obstructive pulmonary disease): Code(s): J44.9 - Chronic obstructive pulmonary disease, unspecified Status: Acute Assessment and Plan: The patient was admitted for hypercapnic respiratory failure. Patient will need to be set up on AVAPS on dc. He will also be set up on home oxygen therapy. He will also be given bronchodilators inhalers on discharge. (4) Diabetes mellitus: Qualifiers: Diabetes mellitus type: type 2 Diabetes mellitus manager long term care insulin use: without senior living use Diabetes mellitus complication status: without complication Qualified Code(s): E11.9 - Type 2 diabetes mellitus without complications Code(s): E11.9 - Type 2 diabetes mellitus without complications Status: Acute Assessment and Plan: Follow-up primary care physician as outpatient. (5) QT prolongation: Code(s): R94.31 - Abnormal electrocardiogram [ECG] [EKG] Status: Acute Assessment and Plan: avoid Qt prolonging medications (6) Restless leg: Code(s): G25.81 - Restless legs syndrome Status: Acute Assessment and Plan: cont home med (7) BMI over 35: Status: Acute (8) CAD (coronary artery disease): Qualifiers: Coronary Disease-Associated Artery/Lesion type: unspecified vessel or lesion type [place] vs. 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 Continue Lasix. (11) Obesity hypoventilation syndrome: Code(s): E66.2 - Morbid (severe) obesity with alveolar hypoventilation Status: Acute Assessment and Plan: see plan above DS: Summary Hospital Course Hospital Course: See discharge planning diagnoses Time Spent with Patient Time attestation: Total time spent providing and/or coordinating discharge services: Exam Narrative: General: Lying in bed, alert and oriented x3, no complaints HEENT: Atraumatic, normocephalic, mucous membranes moist CV: Regular rate and rhythm, S1, S2 Lungs: End expiratory wheezes noted, still with fairly good air entry Abdomen: Soft, nontender, nondistended Extremities: Normal to inspection Skin: No rashes noted, no lesions or wounds seen Psych: Euthymic, normal affect DS: Data Data Completed and Pending Labs on day of discharge: Labs from last 24 hours 10/24/21 10/24/21 10/21/21 05:25 05:25 10:14 WBC 10.8 H RBC 3.68 L Hgb 9.4 L Hct 31.2 L MCV 84.8 MCH 25.5 L MCHC 30.1 L RDW 18.3 H Plt Count 413 H MPV 10.4 Immature Gran % (Auto) 0.5 Neut % (Auto) 80.5 H Lymph % (Aut
[2021-10-24] MEDS: RIVAROXABAN 15 MG TABLET PO (17:19)
== END 2021-10-24 18:40 | disposition home or self-care (01) | DRG 896 ==
LOC: ANHED 12:23 → ANHIMU 22:03 → ANH3MED 10-17 20:25 → ANHIMU 10-18 20:42 → ANH2MED 10-22 15:30
PROVIDERS: Internal Medicine; Nurse Practitioner Adult Health; Physician Assistant; Student in an Organized Health Care Education/Training Program; Admitting Provider Chiropractor; Emergency Provider Emergency Medicine; PCP Family Medicine; Visit Provider Hospitalist
DX: F10.251 Alcohol dependence with alcohol-induced psychotic disorder with hallucinations (principal); J96.01 Acute respiratory failure with hypoxia; I13.0 Hypertensive heart and chronic kidney disease with heart failure and stage 1 through stage 4 chronic kidney disease, or unspecified chronic kidney disease; E87.2 Acidosis; J96.12 Chronic respiratory failure with hypercapnia; N17.9 Acute kidney failure, unspecified; E66.2 Morbid (severe) obesity with alveolar hypoventilation; F05 Delirium due to known physiological condition; I50.30 Unspecified diastolic (congestive) heart failure; Z20.822 Contact with and (suspected) exposure to COVID-19; Z79.01 Long term (current) use of anticoagulants; I25.10 Atherosclerotic heart disease of native coronary artery without angina pectoris; E78.00 Pure hypercholesterolemia, unspecified; I48.0 Paroxysmal atrial fibrillation; I25.2 Old myocardial infarction; Z87.891 Personal history of nicotine dependence; Z68.33 Body mass index [BMI] 33.0-33.9, adult; D63.1 Anemia in chronic kidney disease; N18.9 Chronic kidney disease, unspecified; E11.22 Type 2 diabetes mellitus with diabetic chronic kidney disease; D50.9 Iron deficiency anemia, unspecified; Z95.1 Presence of aortocoronary bypass graft; Z86.74 Personal history of sudden cardiac arrest; F10.21 Alcohol dependence, in remission; E87.6 Hypokalemia; R94.31 Abnormal electrocardiogram [ECG] [EKG]; G25.81 Restless legs syndrome; G47.30 Sleep apnea, unspecified; F10.231 Alcohol dependence with withdrawal delirium; Y90.9 Presence of alcohol in blood, level not specified; E03.8 Other specified hypothyroidism; J43.9 Emphysema, unspecified
CPT/HCPCS: 36415; 36600; 70450; 70551; 71045; 71046; 71275; 80048; 80053; 80307; 81001; 81003; 82140; 82375; 82805; 82948; 83036; 83050; 83605; 83735; 83880; 84100; 84145; 84436; 84443; 84484; 85025; 85610; 87040; 87076; 93005; 94002; 94003; 94618; 94640; 94762; 95816; 96374; 96376; 97110; 97116; 97161; 97165; 97530; 97535; 99285; A9270; C9803; G0378; J0692; J1940; J2930; J3370; J3411; J3475; J7030; J7512; Q9967; U0003; U0005

== ENCOUNTER 2022-03-18 13:34 | Inpatient (IN) | payer MEDICARE, SELFPAY ==
[2022-03-18] VITALS (29 sets, daily range): BP systolic 79–122; BP diastolic 44–72; PULSE 57–100; RESP 15–24; TEMP 35.2–36.8; O2SAT 89–100; BMI 35.1
--- NOTE | ~2022-03-18 | XR_ITS ---
XR chest 1V portable DATE: 03/18/2022 15:12 INDICATION: Shortness of breath, right-sided weakness TECHNIQUE: Portable upright AP views COMPARISON: None FINDINGS: There is cardiomegaly and pulmonary vascular congestion and redistribution. There are bilat eral pleural effusions, mild bilateral right, small on the left. There are primarily central and lowe r lung zone infiltrates, likely due to pulmonary edema and some compressive atelectasis of the right due to the pleural effusion. Aortic arch calcification. Status post sternotomy. Osteopenia. IMPRESSION: Congestive heart failure, pulmonary edema, pleural effusions Reviewed, dictated and finalized at location B. P CRUSHER
--- NOTE | ~2022-03-18 | XR_ITS ---
EXAMINATION: XR chest 1V portable INDICATION: Shortness of breath TECHNIQUE: Portable AP chest at 0537 hours COMPARISON: 03/28/2022 FINDINGS: Cardiomegaly is noted. A small right pleural effusion is slightly decreased in size. No pne umothorax is identified. Bibasilar airspace opacities persist with improvement on the right. Median s ternotomy wires and mediastinal surgical clips are seen, likely from prior coronary artery bypass gra fting. And endovascular stent is noted in the left upper mediastinum. IMPRESSION: 1. Small right pleural effusion with improvement. 2. Bibasilar airspace opacities with improvement on the right, consistent with atelectasis versus pne umonia. Reviewed, dictated and finalized at location A. LBENZENE CONVERTER OPERATOR IMPRESSION: 1. Small right pleural effusion with improvement. 2. Bibasilar airspace opacities with improvement on the right, consistent with atelectasis versus pneumonia.
--- NOTE | ~2022-03-18 | CT_ITS ---
EXAMINATION: CTA brain carotid DATE: 03/18/2022 16:04 RESERVATION MANAGER INDICATION: Right-sided deficits. Weakness. TECHNIQUE: Computed tomographic angiography (CTA) of the head was performed without and with 100 mL O mnipaque-350 intravenous contrast. CTA of the neck was performed with intravenous contrast. The dose- length product was 2422.61 mGy-cm. Maximum intensity projection and volume rendered 3D-reconstruction s were created by the technologist on a separate workstation. COMPARISON: CT brain dated 03/18/2022. FINDINGS: HEAD CTA: There is extensive atherosclerosis of the internal carotid arteries with moderate-severe st enosis of a large segment of the left internal carotid artery involving the cavernous segment and jessee or to the cavernous segment. There is mild stenosis of the cavernous segment of the right internal ca rotid artery. There is a dominant right vertebral artery. The anterior, middle and posterior cerebral arteries are symmetric. No evidence for aneurysm or dissection. NECK CTA: There is atherosclerosis of the aorta with stenosis at the origin of the left subclavian ar ramón. There is mild stenosis of the right subclavian artery. Evaluation of the internal carotid arter ies is limited by motion artifact. There are median sternotomy changes. There is approximately 55% stenosis of the proximal right internal carotid artery relative to normal distal artery lumen diameter (NASCET criteria). There is approximately 80% stenosis of the proximal l eft internal carotid artery relative to normal distal artery lumen diameter. IMPRESSION: 1. 80% stenosis of the proximal right internal carotid artery relative to normal distal artery lumen diameter (NASCET criteria). 2. 55% stenosis of the proximal left internal carotid artery relative to normal distal artery lumen d iameter. 3: Severe stenosis of the left internal carotid artery extending into the cavernous segment of the a ruddy. 4: Mild stenosis of the right internal carotid artery at the cavernous sinus. 5: Evaluation is limited by significant motion artifact. 6: Mild stenosis at the origin of both subclavian arteries. Reviewed, dictated and finalized at location A. RVATION MANAGER IMPRESSION: 1. 80% stenosis of the proximal right internal carotid artery relative to tomy l distal artery lumen diameter (NASCET criteria). 2. 55% stenosis of the proximal left internal carotid artery relative to normal distal artery lumen diameter. 3: Severe stenosis of the left internal carotid artery extending into the cave rnous segment of the aorta. 4: Mild stenosis of the right internal carotid artery at the cavernous sinus. 5: Evaluation is limited by significant motion artifact. 6: Mild stenosis at the origin of both subclavian arteries.
--- NOTE | ~2022-03-18 | US_ITS ---
EXAMINATION: US thoracentesis DATE: 03/27/2022 13:26 INDICATION: pleural effusion TECHNIQUE: The procedure and its risks, benefits, and alternatives were discussed with the patient. P otential risks discussed included bleeding, infection, and pneumothorax. The patient understood the r isks and agreed to proceed. The skin was prepped and draped in sterile fashion. 1% lidocaine was used for local anesthesia. Under ultrasound guidance, a 5 Fr catheter with trochar was advanced into the right pleural effusion. Fluid was aspirated. The catheter was removed, and a dressing was applied. Th ere were no immediate complications. FINDINGS: Ultrasound images demonstrate a right pleural effusion and the catheter within the fluid. IMPRESSION: 1. Successful ultrasound-guided thoracentesis yielding 1000 mL of clear, yellow fluid. Reviewed, dictated and finalized at location A. VIORAL TECHNICIAN IMPRESSION: 1. Successful ultrasound-guided thoracentesis yielding 1000 mL of clear, yello w fluid.
--- NOTE | ~2022-03-18 | XR_ITS ---
EXAMINATION: XR chest 1V portable INDICATION: Hypercapnic respiratory failure TECHNIQUE: Portable AP chest at 0523 hours COMPARISON: 03/20/2022 FINDINGS: Small left and small to moderate size right pleural effusions are unchanged. There are righ t basilar airspace opacities. Cardiomegaly is noted. There is a mild diffuse interstitial pattern. No pneumothorax is identified. There are changes of prior cardiac surgery. Endovascular stent projects at the left upper mediastinum. IMPRESSION: 1. Cardiomegaly with mild pulmonary edema. 2. Stable pleural effusions. 3. Right basilar opacities, consistent with atelectasis versus pneumonia. Reviewed, dictated and finalized at location A. OUS EXCEPTIONALITIES TEACHER
--- NOTE | ~2022-03-18 | CT_ITS ---
EXAMINATION: CT brain wo con DATE: 03/18/2022 13:57 INDICATION: Right-sided flaccid weakness and altered mental status TECHNIQUE: Computed tomography (CT) of the head was performed without intravenous contrast. Sagittal and coronal reconstructions were performed. The mA was adjusted according to patient size. Iterative reconstruction technique was employed. The dose-length product was 605.33 mGy-cm. COMPARISON: head CT dated 10/15/2021 and brain MR dated 10/16/2021 FINDINGS: Evaluation mildly limited by small amount of scattered motion artifact. Again seen are chronic small infarcts in the bilateral occipital lobes, along a gyrus of the posterior left frontal lobe and left cerebellar hemisphere. There are couple additional likely old lacunar infarcts at the bilateral basal ganglia. There is an age-indeterminate infarct in the right cerebellar hemisphere which is new since the prior studies. No acute intracranial hemorrhage or abnormal extra axial fluid collection. There is mild scattered white matter hypoattenuation consistent with chronic small vessel ischemic disease. Ventricles are normal and symmetric. No mass/mass effect. The orbits, paranasal sinuses and mastoid air cells are normal. Intracranial calcified cerebral atherosclerosis is noted. IMPRESSION: 1. Age-indeterminate small right cerebellar infarct which is new since 10/16/2021. Dr. Najera discuss ed these findings with Dr. Guardado at 2:00 PM. 2. Several unchanged small old infarcts in the bilateral occipital lobes, left frontal lobe, left cer ebellar hemisphere and a couple small lacunar infarcts at the bilateral basal ganglia. 2. Mild scattered white matter hypoattenuation consistent with chronic small vessel ischemic disease. Reviewed, dictated and finalized at location A. MERCHANT IMPRESSION: 1. Age-indeterminate small right cerebellar infarct which is new since 10/16/[address] Najera discussed these findings with Dr. Guardado at 2:00 PM. 2. Several unchanged small old infarcts in the bilateral occipital lobes, left frontal lobe, left cerebellar hemisphere and a couple small lacunar infarcts at the bilateral basal ganglia. 2. Mild scattered white matter hypoattenuation consistent with chronic small ve ssel ischemic disease.
--- NOTE | ~2022-03-18 | XR_ITS ---
EXAMINATION: XR chest 1V portable INDICATION: Shortness of breath, thoracentesis TECHNIQUE: Portable AP chest at 0818 hours COMPARISON: 03/27/2022 FINDINGS: Cardiomegaly is noted. There is a small right pleural effusion. There are minimal airspace opacities of the lung bases, right greater than left. No pneumothorax. Median sternotomy wires and me diastinal surgical clips are seen, likely from prior coronary artery bypass grafting. IMPRESSION: 1. Small right pleural effusion. 2. Bibasilar airspace opacities, right greater than left, consistent with atelectasis versus pneumoni a. 3. Stable cardiomegaly. Reviewed, dictated and finalized at location A. RUCTIONAL TECHNOLOGY FACILITATOR IMPRESSION: 1. Small right pleural effusion. 2. Bibasilar airspace opacities, right greater than left, consistent with atele ctasis versus pneumonia. 3. Stable cardiomegaly.
--- NOTE | ~2022-03-18 | US_ITS ---
US renal BI 03/21/2022 19:43 Procedure: Realtime transabdominal ultrasound of the kidneys and bladder. Indication: Elevated creatinine Comparison: No prior studies for comparison. Findings: Renal echotexture is normal bilaterally without hydronephrosis, contour deforming mass or r enal calculus. The right kidney measures 10 cm and left kidney measures 10.9 cm. Bladder not distend ed for evaluation. Impression: 1: Unremarkable renal ultrasound. No stones, masses or hydronephrosis. Reviewed, dictated and finalized at location A. SETTER Impression: 1: Unremarkable renal ultrasound. No stones, masses or hydronephrosis.
--- NOTE | ~2022-03-18 | XR_ITS ---
EXAMINATION: XR chest 1V portable DATE: 03/20/2022 06:19 INDICATION: Hypercapnic respiratory failure TECHNIQUE: frontal view of the chest was obtained. COMPARISON: Chest radiograph dated 03/18/[address] dated 10/15/2021 FINDINGS: Opacities throughout both lungs with basilar predominance consistent with posterior layering small le ft and small to moderate-sized right pleural effusions with associated atelectasis and/or pneumonia. No pneumothorax. Cardiomegaly. Median sternotomy wires and mediastinal surgical clips are seen, likel y from prior coronary artery bypass grafting. Left common carotid artery stenting. IMPRESSION: 1. Persistent small left and small to moderate right pleural effusions with associated atelectasis an d/or pneumonia. 2. Cardiomegaly. Reviewed, dictated and finalized at location A. CAR CHARGER IMPRESSION: 1. Persistent small left and small to moderate right pleural effusions with ass ociated atelectasis and/or pneumonia. 2. Cardiomegaly.
--- NOTE | ~2022-03-18 | XR_ITS ---
EXAMINATION: XR chest 1V portable DATE: 03/25/2022 06:42 INDICATION: Respiratory failure. TECHNIQUE: A single frontal view of the chest was obtained. COMPARISON: Chest single view 03/21/2022, chest CT 10/15/2021, CT neck 03/18/2022 FINDINGS: There are patchy airspace opacities in all lung zones bilaterally. There are moderate-sized right and small left pleural effusions. No pneumothorax. Cardiomegaly is noted. Median sternotomy wi res and mediastinal surgical clips are seen, likely from prior coronary artery bypass grafting. There is a stent in proximal left subclavian artery. IMPRESSION: 1. Worsened diffuse lung disease, consistent with pneumonia versus pulmonary edema. 2. Moderate-sized right and small left pleural effusions with worsening on the right. 3. Cardiomegaly. Reviewed, dictated and finalized at location A. F FINANCIAL OFFICER IMPRESSION: 1. Worsened diffuse lung disease, consistent with pneumonia versus pulmonary ed ismael. 2. Moderate-sized right and small left pleural effusions with worsening on the right. 3. Cardiomegaly.
--- NOTE | ~2022-03-18 | MR_ITS ---
EXAMINATION: MR brain/brain stem wo con DATE: 04/01/2022 18:31 INDICATION: Stroke. TECHNIQUE: Magnetic resonance imaging (MRI) of the brain and brainstem was performed without intraven ous contrast. COMPARISON: Brain MRI 10/16/2021, head CT 03/18/2022 FINDINGS: There is an acute infarct in right cerebellum. There is an old infarct in left cerebellum. There is an acute infarct in the left frontoparietal deep white matter. There are old infarcts in the occipital lobes bilaterally. There are old infarcts in the left lentiform nucleus and left thalamus. There are old infarcts in the frontal lobes, left worse than right. There are scattered areas of non specific increased T2-weighted signal intensity in the cerebral white matter and isaac. There is no in tracranial hemorrhage or abnormal mass lesion. The ventricles are normal in size. The paranasal sinus es are clear. The orbits are normal. The mastoid air cells are normal. IMPRESSION: 1. Acute infarcts in the right cerebellum and left frontoparietal deep white matter. 2. Old infarcts in the left cerebellum, occipital lobes, frontal lobes, left lentiform nucleus, and l eft thalamus. 3. Mild nonspecific cerebral white matter disease and pontine disease, which likely represents chroni c small vessel ischemic disease. Reviewed, dictated and finalized at location A. ING ANALYST IMPRESSION: 1. Acute infarcts in the right cerebellum and left frontoparietal deep white ma tter. 2. Old infarcts in the left cerebellum, occipital lobes, frontal lobes, left le ntiform nucleus, and left thalamus. 3. Mild nonspecific cerebral white matter disease and pontine disease, which diego nguyen represents chronic small vessel ischemic disease.
--- NOTE | ~2022-03-18 | XR_ITS ---
Portable chest x-ray Comparison: 03/25/2022 Clinical History: Postthoracentesis Findings: No pneumothorax. Lungs are clear, without focal consolidation or definite pleural effusion . Mild elevation right hemidiaphragm unchanged. Cardiomediastinal silhouette is stable, status post CABG. Bones and soft tissues are unremarkable. Impression: No pneumothorax. Clear lungs. Stable cardiomegaly, status post CABG. Reviewed, dictated and finalized at location [] DIRECTOR Impression: No pneumothorax. Clear lungs. Stable cardiomegaly, status post CABG.
[2022-03-18 13:39] LABS: Glucose Point of Care 137 mg/dl (65-105)
--- NOTE | 2022-03-18 13:39 | ECG_ITS ---
Measurements Intervals [place] Rate: 63 P: NH: 0 QRS: 54 QRSD: 111 T: 193 QT: 479 QTc: 494 Interpretive Statements ATRIAL FIBRILLATION WONDERING BASELINE ARTIFACT IN LEADS I AND II INCOMPLETE RIGHT BUNDLE BRANCH BLOCK CANNOT RULE OUT LATERAL MYOCARDIAL INFARCTION , OF INDETERMINATE AGE ABNORMAL ECG COMPARED TO ECG 10/15/2021 20:29:35 ATRIAL FIBRILLATION NOW PRESENT INCOMPLETE RIGHT BUNDLE-BRANCH BLOCK NOW PRESENT Electronically Signed On 03-18-2022 14:56:28 PRODUCTION OPERATOR by Jp Kidd M.D.
--- NOTE | 2022-03-18 13:41 | ED.GENADULT ---
HPI - General Adult General Chief complaint: Weakness <ELISABETH Rg Last Filed: 03/18/22 20:28> Stated complaint: GLF, SOB <ELISABETH Rg Last Filed: 03/18/22 20:28> Time Seen by Provider: 03/18/22 13:46 <ELISABETH Rg Last Filed: 03/18/22 20:28> Source: patient, family and old records reviewed <ELISABETH Rg Last Filed: 03/18/22 20:28> Mode of arrival: EMS <ELISABETH Rg Last Filed: 03/18/22 20:28> Limitations: clinical condition <ELISABETH Rg Last Filed: 03/18/22 20:28> History of Present Illness HPI narrative: Patient is a 72 y/o male who presents to the ED via EMS with report of weakness. Per patient's at bedside, she was getting the patient ready to go to a primary care doctor appointment today as he has been having increased difficulty breathing over the last week and a half. Patient had walked down the stairs in their house and became very weak. He said he could not walk anymore. tried to place wheelchair behind him for him to sit down. Patient fpc sat on the chair and slid down to the ground. When tried to get him off off the ground she noticed he was very weak in his right arm and right leg. EMS was then called. She does report patient wears a CPAP at night and has history of CO2 retention. She states he has been slightly confused and hallucinating some over the last week and a half, which she attributed to CO2 retention. Patient in obvious respiratory distress upon arrival. Patient with history of CHF, CAD, COPD, CKD, atrial fibrillation on Xarelto. Patient chronically wears 2 L nasal cannula and CPAP machine at night. reports she has had him wear CPAP more often during the day due to the recent confusion. Per records, patient was admitted to the hospital here in October 2021 for acute hypercarbic hypoxic respiratory failure. <ELISABETH Rg Last Filed: 03/18/22 20:28> Related Data Home medications: Home Medications Medication Instructions Recorded Confirmed amiodarone 200 mg tablet (Pacerone) 200 mg PO DAILY 10/15/21 03/18/22 aspirin 81 mg tablet,delayed 81 mg PO DAILY 10/15/21 03/18/22 release atorvastatin 40 mg tablet 40 mg PO QHS 10/15/21 03/18/22 losartan 25 mg tablet 25 mg PO DAILY 10/15/21 03/18/22 metoprolol succinate 200 mg 200 mg PO DAILY 10/15/21 03/18/22 tablet,extended release 24 hr pantoprazole 40 mg tablet,delayed 40 mg PO DAILY 10/15/21 03/18/22 release potassium chloride 20 mEq 20 meq PO DAILY 10/15/21 03/18/22 tablet,extended release (K-Tab) ropinirole 1 mg tablet 0.5 mg PO TID 10/15/21 03/18/22 spironolactone 25 mg tablet 25 mg PO DAILY 10/15/21 03/18/22 quetiapine 25 mg tablet (Seroquel) 25 mg PO HS 03/18/22 03/18/22 rivaroxaban 20 mg tablet (Xarelto) 20 mg PO DAILY 03/18/22 03/18/22 <ELISABETH Rg Last Filed: 03/18/22 20:28> Allergies/adverse reactions: Allergies Allergy/AdvReac Type Severity Reaction Status Date / Time No Known Allergies Allergy Verified 11/05/21 13:05 <ELISABETH Rg Last Filed: 03/18/22 20:28> Review of Systems Review of Systems: ROS unobtainable: Yes unobtainable due to medical condition <ELISABETH Rg Last Filed: 03/18/22 20:28> [facility] Past Medical History Medical History: Medical History Abdominal distension Alcohol abuse Asbestosis Atrial fibrillation with rapid ventricular response BMI 34.0-34.9,adult BMI over 35 Chronic hypercapnic respiratory failure COPD (chronic obstructive pulmonary disease) COPD (chronic obstructive pulmonary disease) with emphysema Coronary artery disease Followed by Dr. Liz Little for immunization (04/03/15) Essential hypertension History of ventricular fibrillation VFib arrest during cardiac catheterization December 2018 and subsequent cardiogenic shock cardiac in her aortic
[2022-03-18 13:52] LABS: Estimated Glomerular Filt Rate 27
[2022-03-18] MEDS: SODIUM CHLORIDE 0.9% IV 1,000 ML 999 ML IV CONT (14:11)
[2022-03-18 14:27] LABS: Basophils Absolute Auto 0.1 K/mm3 (0.0-0.1); Basophils Percent Auto 1.3 % (0.2-1.2); Eosinophils Absolute Auto 0.3 K/mm3 (0-0.3); Eosinophils Percent Auto 3.2 % (0-4.4); Hematocrit 24.4 % (42.0-52.0); Immature Granulocyte Absolute 0.03 K/mm3 (0.00-0.031); Immature Granulocyte Percent A 0.3 % (0-0.5); Lymphocytes Absolute Auto 1.35 K/mm3 (0.9-3.2); Lymphocytes Percent Auto 14.4 % (18.3-44.2); Mean Corpuscular HGB Conc 27.9 g/dl (32-36); Mean Corpuscular Hemoglobin 21.1 pg (26-34); Mean Corpuscular Volume 75.5 fl (80-100); Mean Platelet Volume 10.2 fl (7.4-10.4); Monocytes Absolute Auto 1.2 K/mm3 (0.1-0.6); Monocytes Percent Auto 12.4 % (2.6-8.5); Neutrophils Absolute Auto 6.4 K/mm3 (1.3-6.7); Neutrophils Percent Auto 68.4 % (45.5-73.1); Platelet Count Result 727 k/mm3 (150-375); Red Blood Count 3.23 M/mm3 (4.6-6.20); Red Cell Distribution Width 19.4 % (11.5-14.5); White Blood Count 9.4 K/mm3 (4.5-10.0)
[2022-03-18 14:28] LABS: Partial Thromboplastin Time 73.5 SECONDS (22.3-36.8); Prothrombin Time 64.1 Seconds (11.1-14.7)
[2022-03-18 14:37] LABS: Alveolar/Arterial O2 Gradient 361.8 mmHg; Base Excess ABG -3.6 mEq/l (+/-2.0); Fractional Inspired Oxygen 80 %; HCO3 ABG 23.6 mEq/l (22.0-26.0); Methemoglobin ABG 0.2 %THb (0-1.5); Oxygen Content ABG 10.8 %vol (16.0-22.0); Oxygen Saturation ABG 98.6 % (95.0-100.0); Oxyhemoglobin 96.7 % THb (90.0-100.0); PCO2 ABG 55.4 mmHg (35.0-45.0); PO2 ABG 150.4 mmHg (80.0-100.0); PO2 FiO2 Ratio Arterial Blood 1.88 %; Reduced Hemoglobin 2.1 %THb (0-5.0)
[2022-03-18 14:39] LABS: pH ABG 7.248 (7.350-7.450)
[2022-03-18 14:40] LABS: Device NON-INVASIVE VENT; Modified Allen's Test Pass; Site Drawn RIGHT RADIAL; Total Hemoglobin 7.7 g/dL (12.0-18.0)
[2022-03-18 14:41] LABS: Hemoglobin 6.8 g/dL (14.0-18.0)
[2022-03-18 14:45] LABS: Non-Invasive Expiratory Pressure 8 CMH2O; Non-Invasive Inspiratory Pressure 14 CMH2O; Non-Invasive Vent Rate 20 /MIN
[2022-03-18 14:51] LABS: Anisocytosis 1+ (NORMAL); Hypochromasia 2+ (NORMAL); Platelet Estimate Increased (Adequate); Schistocytes None Seen (NORMAL)
--- NOTE | 2022-03-18 14:58 | PC.NURSE ---
Per EDP Luz and NHUNG Correa, patient has been accepted to [place] ED and will be going by [facility]. Per EDP, okay to hold off on orders including urine specimen, catheter, and blood transfusion.
[2022-03-18 15:03] LABS: INR 7.9
[2022-03-18 15:11] LABS: Alanine Aminotransferase 71 U/L (6-50); Albumin Level 3.9 g/dL (3.5-5.1); Alkaline Phosphatase 135 U/L (38-126); Anion Gap 9 mmol/L (8-16); Aspartate Amino Transferase 173 U/L (17-59); Bilirubin,Total 1.8 mg/dL (0.2-1.3); Blood Urea Nitrogen 37 mg/dL (9-20); Carbon Dioxide 25 mmol/L (22-30); Chloride 103 mmol/L (98-107); Estimated Glomerular Filt Rate 27; Glucose 127 mg/dL (65-110); Potassium 5.6 mmol/L (3.4-5.0); Sodium 137 mmol/L (137-145)
[2022-03-18 15:19] LABS: NT Pro B Type Natriuretic Pept 5750 pg/mL (5-100)
[2022-03-18 15:22] LABS: Troponin I < 0.012 ng/mL (0.000-0.034)
--- NOTE | 2022-03-18 15:32 | PC.NURSE ---
While attempting to call report to [place] ED, this RN was told that patient had not been accepted to the ER yet. EDP Luz notified, EMS transportation cancelled.
[2022-03-18 15:35] LABS: Influenza A QL RT-PCR Negative (Negative); Influenza B QL RT-PCR Negative (Negative); SARS-CoV-2 RNA PCR Negative
[2022-03-18] MEDS: FUROSEMIDE INJ 40 MG/4 ML VIAL IV PUSH ×2 (16:56→22:30)
[2022-03-18 16:59] LABS: Appearance Urine Clear (Clear); Bilirubin Urine 1+ (Negative); Blood Urine Negative (Negative); Color Urine Yellow (Yellow); Glucose Urine UA Negative (Negative); Ketones Urine Negative (Negative); Leukocyte Esterase Ur Negative LEU/UL (Negative); Nitrate Urine Negative (Negative); Protein Urine 1+ mg/dL (Negative)
--- NOTE | 2022-03-18 17:00 | PC.NURSE ---
Temperature oscar placed for patient. Patient currently 95.4 degrees core temperature. NHUNG Correa notified. Multiple warm blankets placed on patient.
[2022-03-18 17:12] LABS: Bacteria Urine Trace /hpf; Hyaline Casts Urine 20-29 /lpf; Mucus Urine Rare /lpf; RBC Urine 0-2 /hpf (0-2); WBC Urine 0-3 /hpf
[2022-03-18 17:17] LABS: Add Urine Microscopic? YES
[2022-03-18] MEDS: SODIUM CHLORIDE 0.9% IV 250 ML 30 ML IV CONT (18:10)
--- NOTE | 2022-03-18 18:25 | PC.NURSE ---
NHUNG Correa notified patient's temperature still 95.9. Per young HOOKER to initiate Lino huggar therapy.
--- NOTE | 2022-03-18 18:46 | PC.NURSE ---
Spoke to [facility] transfer line, no beds available.
--- NOTE | 2022-03-18 21:20 | ADMGEN ---
This patient, Zack Dai, was admitted to Intensive Care Unit-12. Patient/family oriented to hospital policies and general routines including ID bracelet, bed and alarms, visiting hours, pain management, procedures, bathroom and other care routines, personal items, smoking policy, room service/diet, and visiting hours. Information on how to activate the Rapid Response Team has been discussed. Patient/Family are encouraged to report perceived risks to care and to ask questions if they do not understand what they are told or what they should do.
[2022-03-18 22:37] LABS: Troponin I < 0.012 ng/mL (0.000-0.034)
[2022-03-18 22:56] LABS: Hematocrit 26.3 % (42.0-52.0); Hemoglobin 7.6 g/dL (14.0-18.0)
[2022-03-19] VITALS (22 sets, daily range): BP systolic 89–118; BP diastolic 44–79; PULSE 64–100; RESP 17–30; TEMP 36.4–37.4; O2SAT 94–99
--- NOTE | 2022-03-19 04:13 | PM.IMHP ---
H&P: HPI History of Present Illness Date/Time: 03/19/22 04:13 Chief Complaint: weakness Narrative: This is a 72-year-old male with past medical history significant for COPD, paroxysmal atrial fibrillation rate controlled, history of alcohol abuse, patient uses a walker and a Rollator at home walks short distances within the house, dyslipidemia, chronic respiratory failure with hypercarbia and hypoxia on supplemental oxygen, coronary artery disease status post coronary artery bypass graft. Patient was brought to the emergency room due to weakness, altered mental status. At the time of my visit patient was on BiPAP and was unable to give any history which I have obtained mainly upon reviewing medical records and emergency room records as well. preliminary workup was significant for a blood gas pH was 7.24, pCO2 55 PO2 150 hemoglobin of 7 patient tested negative for COVID 19, influenza A and influenza B. patient has been admitted for further evaluation management and treatment. CTA brain and neck IMPRESSION: 1. 80% stenosis of the proximal right internal carotid artery relative to normal distal artery lumen diameter (NASCET criteria). 2. 55% stenosis of the proximal left internal carotid artery relative to normal distal artery lumen diameter. 3:? Severe stenosis of the left internal carotid artery extending into the cavernous segment of the aorta. 4:? Mild stenosis of the right internal carotid artery at the cavernous sinus. 5: Evaluation is limited by significant motion artifact. 6: Mild stenosis at the origin of both subclavian arteries. CHEST XR IMPRESSION: Congestive heart failure, pulmonary edema, pleural effusions? head CT IMPRESSION: 1. Age-indeterminate small right cerebellar infarct which is new since 10/16/2021. Dr. Najera discussed these findings with Dr. Guardado at 2:00 PM. 2. Several unchanged small old infarcts in the bilateral occipital lobes, left frontal lobe, left cerebellar hemisphere and a couple small lacunar infarcts at the bilateral basal ganglia. 2. Mild scattered white matter hypoattenuation consistent with chronic small vessel ischemic disease. Review of Systems Review of Systems: ROS unobtainable: Yes unobtainable due to medical condition ( on BiPAP) and unobtainable due to mental status ( Obtundation) PMF Past Medical History Medical History Abdominal distension Alcohol abuse Asbestosis Atrial fibrillation with rapid ventricular response BMI 34.0-34.9,adult BMI over 35 Chronic hypercapnic respiratory failure COPD (chronic obstructive pulmonary disease) COPD (chronic obstructive pulmonary disease) with emphysema Coronary artery disease Followed by Dr. Hill Encounter for immunization (04/03/15) Essential hypertension History of ventricular fibrillation VFib arrest during cardiac catheterization December 2018 and subsequent cardiogenic shock cardiac in her aortic balloon pump emergent echo demonstrating EF of 35% Hypercholesterolemia Ileus, unspecified Irritation of eye Irritation of left eye Lumbar spondylosis with myelopathy Paroxysmal atrial fibrillation Restless leg STEMI (ST elevation myocardial infarction) Tobacco use Surgical History Surgical History History of cardiac catheterization December 2018: High-grade stenosis of left main coronary, moderate to severe diffuse disease of proximal to mid LAD, high-grade eccentric ulcerated plaque in the mid segment of the dominant RCA. During catheterization the patient went into VFib arrest much shock x1 Hx of CABG CABG with [place] to LAD, left radial artery to OM 2, reverse saphenous vein graft 2 p.o. be of RCA performed by Dr. Worrell December 2019 at [facility]. Family History Family History Mother Bone cancer Father Alcoholism Sibling Healthy adult male 62 years old Social H
[2022-03-19 07:21] LABS: Basophils Absolute Auto 0.1 K/mm3 (0.0-0.1); Basophils Percent Auto 0.7 % (0.2-1.2); Eosinophils Absolute Auto 0.3 K/mm3 (0-0.3); Eosinophils Percent Auto 2.3 % (0-4.4); Hematocrit 27.1 % (42.0-52.0); Hemoglobin 7.6 g/dL (14.0-18.0); Immature Granulocyte Absolute 0.08 K/mm3 (0.00-0.031); Immature Granulocyte Percent A 0.7 % (0-0.5); Lymphocytes Absolute Auto 0.79 K/mm3 (0.9-3.2); Lymphocytes Percent Auto 6.9 % (18.3-44.2); Mean Corpuscular Hemoglobin 22.5 pg (26-34); Mean Corpuscular Volume 80.2 fl (80-100); Mean Platelet Volume 10.1 fl (7.4-10.4); Monocytes Absolute Auto 1.2 K/mm3 (0.1-0.6); Monocytes Percent Auto 10.5 % (2.6-8.5); Neutrophils Percent Auto 78.9 % (45.5-73.1); Platelet Count Result 633 k/mm3 (150-375); Red Blood Count 3.38 M/mm3 (4.6-6.20); Red Cell Distribution Width 19.9 % (11.5-14.5); White Blood Count 11.4 K/mm3 (4.5-10.0)
[2022-03-19 07:32] LABS: Magnesium 2.4 mg/dL (1.6-2.3)
[2022-03-19 07:34] LABS: Alanine Aminotransferase 103 U/L (6-50); Albumin Level 3.7 g/dL (3.5-5.1); Alkaline Phosphatase 125 U/L (38-126); Anion Gap 7 mmol/L (8-16); Aspartate Amino Transferase 214 U/L (17-59); Bilirubin,Total 1.7 mg/dL (0.2-1.3); Blood Urea Nitrogen 35 mg/dL (9-20); Calcium 8.2 mg/dL (8.4-10.2); Carbon Dioxide 27 mmol/L (22-30); Chloride 102 mmol/L (98-107); Estimated CRCL calculation 37 ml/min; Estimated Glomerular Filt Rate 30; Glucose 99 mg/dL (65-110); Sodium 136 mmol/L (137-145)
[2022-03-19 07:56] LABS: Anisocytosis 2+ (NORMAL); Hypochromasia 2+ (NORMAL); Platelet Estimate Increased (Adequate)
[2022-03-19 07:57] LABS: Poikilocytosis 2+ (NORMAL)
[2022-03-19 07:58] LABS: Ovalocytes 2+ (NORMAL); Tear Drop Cells 1+ (NORMAL)
[2022-03-19 07:59] LABS: Acanthocytes 2+ (NORMAL); Schistocytes None Seen (NORMAL)
[2022-03-19] MEDS: BUDESONIDE RESPULE NEB 0.5 MG/2 ML AMP INHALATION ×2 (08:15→20:10)
[2022-03-19 08:17] LABS: Alveolar/Arterial O2 Gradient 129.6 mmHg; Base Excess ABG 0.4 mEq/l (+/-2.0); Fractional Inspired Oxygen 40 %; HCO3 ABG 29.4 mEq/l (22.0-26.0); Methemoglobin ABG 0.4 %THb (0-1.5); PO2 ABG 66.5 mmHg (80.0-100.0); PO2 FiO2 Ratio Arterial Blood 1.66 %; Reduced Hemoglobin 11.6 %THb (0-5.0); Total Hemoglobin 8.8 g/dL (12.0-18.0)
[2022-03-19 08:18] LABS: PCO2 ABG 77.5 mmHg (35.0-45.0); pH ABG 7.197 (7.350-7.450)
[2022-03-19 08:19] LABS: Modified Allen's Test Pass; Oxygen Saturation ABG 87.5 % (95.0-100.0); Site Drawn RIGHT BRACHIAL
[2022-03-19 08:20] LABS: Device BIPAP; Expiratory Pressure 8 cmH2O; Inspiratory Pressure 14 cmH2O
--- NOTE | 2022-03-19 11:32 | WPDGICN ---
Assessment and Plan Assessment and plan (1) Acute CVA (cerebrovascular accident): Code(s): I63.9 - Cerebral infarction, unspecified Status: Acute Assessment and Plan: Patient with apparent CVA. The time frame of a CVA somewhat unclear but appears be subacute. Supportive care indicated. Now in the ICU. (2) Acute on chronic respiratory failure with hypoxia and hypercapnia: Code(s): J96.21 - Acute and chronic respiratory failure with hypoxia; J96.22 - Acute and chronic respiratory failure with hypercapnia Status: Acute Assessment and Plan: Patient with rather significant respiratory difficulties. These attributed to obesity, COPD and congestive heart failure. Continue supportive care for now in the ICU with the news director. (3) Anemia: Code(s): D64.9 - Anemia, unspecified Status: Acute Assessment and Plan: Patient with anemia reported to have a hemoglobin of 6.8 last evening. Patient does appear to have chronic anemia on review of old records. Is unclear how much of this is acute but suspect he has rather chronic anemia. Iron indices folate B12 will be obtained. Continue to monitor. It may be prudent to treat patient empirically for possible ulcer disease. Given his respiratory difficulties endoscopy and other invasive testing not immediately warranted. I suspect any bleeding is aggravated by his anticoagulated status status with elevated INR. (4) Occult blood in stools: Code(s): R19.5 - Other fecal abnormalities Status: Acute Assessment and Plan: Occult blood noted in brown stool suggest patient with no active bleeding. Some irritation is noted. Plan to treat empirically for ulcer disease. Defer invasive testing in until patient becomes somewhat more stable. Likely aggravated by his prolonged protime and INR. (5) Supratherapeutic INR: Code(s): R79.1 - Abnormal coagulation profile Status: Acute Assessment and Plan: Hold anticoagulation for now. Restart prudently at a later date only if stable and no signs of blood loss (6) Acute exacerbation of CHF (congestive heart failure): Qualifiers: Heart failure type: unspecified Qualified Code(s): I50.9 - Heart failure, unspecified Code(s): I50.9 - Heart failure, unspecified Status: Acute (7) Obesity hypoventilation syndrome: Code(s): E66.2 - Morbid (severe) obesity with alveolar hypoventilation Status: Acute (8) COPD (chronic obstructive pulmonary disease): Code(s): J44.9 - Chronic obstructive pulmonary disease, unspecified Status: Acute GI Consult Note Consult date/time: 03/19/22 11:32 Reason for consult: Anemia and occult blood in stool. HPI: Zack Dai is a 72 year old male I am asked to see at the request of the emergency room. Patient has a history of a CVA. Apparently has become progressively weak And short of breath.. For this reason presented to the emergency room. In ER patient was found to be profoundly anemic with occult blood in stool. Stools reported to be brown. No obvious bleeding was encountered. No abdominal pain identified. Patient's past medical history is significant for congestive heart failure, atrial fibrillation on Xarelto. Coronary artery disease, COPD, chronic kidney disease. Patient wears a CPAP mask at night. He has stated he has become increasingly confused. Review of Systems Review of Systems: Review of systems not obtainable at this time. [facility] Past Medical History Medical History Abdominal distension Alcohol abuse Asbestosis Atrial fibrillation with rapid ventricular response BMI 34.0-34.9,adult BMI over 35 Chronic hypercapnic respiratory failure COPD (chronic obstructive pulmonary disease) COPD (chronic obstructive pulmonary disease) with emphysema Coronary artery disease Followed by Dr. Hill Encounter for immunization (04/03/15) Essential hypertension Hist
[2022-03-19 11:40] LABS: Alveolar/Arterial O2 Gradient 206.7 mmHg; Base Excess ABG -0.1 mEq/l (+/-2.0); Fractional Inspired Oxygen 50 %; Oxygen Content ABG 10.9 %vol (16.0-22.0); Oxygen Saturation ABG 91.7 % (95.0-100.0); PO2 ABG 73.9 mmHg (80.0-100.0); PO2 FiO2 Ratio Arterial Blood 1.48 %; Total Hemoglobin 8.4 g/dL (12.0-18.0)
[2022-03-19 11:41] LABS: pH ABG 7.235 (7.350-7.450)
[2022-03-19 11:42] LABS: Device BIPAP; Expiratory Pressure 8 cmH2O; Inspiratory Pressure 18 cmH2O; Modified Allen's Test Pass; PCO2 ABG 67.5 mmHg (35.0-45.0); Site Drawn RIGHT RADIAL
--- NOTE | 2022-03-19 11:56 | PCFNICU ---
ICU Rounding Note: Pt current nutrition is NPO. Last recorded weight is 114.3 kg. Bowel Motility: No BM reported. Labs Reviewed:Cr 2.2,BUN 35, GFR 30, Na 136, Hct 27.1 Meds Noted:Protonix, Zithromax Skin: WNL Additional Notes: Patient currently NPO. GI consult. No nutrition at this time. Following daily in ICU rounds.
[2022-03-19 12:02] LABS: INR 3.7; Partial Thromboplastin Time 54.2 SECONDS (22.3-36.8); Prothrombin Time 35.3 Seconds (11.1-14.7)
[2022-03-19 12:10] LABS: Iron 19 ug/dL (49-181)
--- NOTE | 2022-03-19 12:10 | WPDCNINT ---
Assessment and Plan Assessment and plan (1) Acute CVA (cerebrovascular accident): Code(s): I63.9 - Cerebral infarction, unspecified Status: Acute Assessment and Plan: Patient presented with generalized weakness on 03/18/2022, brain CT on admission showed age indeterminate small right cerebellar infarct which is new since 10/16/2021, several unchanged small infarcts in the bilateral occipital lobes, left frontal lobe, left cerebral hemisphere and couple of small lacunar infarcts at the bilateral basal ganglia. Chronic age-related changes -CTA head and neck 03/18/2022: 80% stenosis of the proximal right internal carotid artery relative to normal distal artery lumen diameter (NASCET criteria).. 55% stenosis of the proximal left internal carotid artery relative to normal distal artery lumen diameter.? Severe stenosis of the left internal carotid artery extending into the cavernous segment of the aorta.:? Mild stenosis of the right internal carotid artery at the cavernous sinus. Evaluation is limited by significant motion artifact. Mild stenosis at the origin of both subclavian arteries. The ER physician had called Neurology had [facility], patient has been accepted awaiting bed -will have our neurologist evaluate the patient also (2) Acute on chronic respiratory failure with hypoxia and hypercapnia: Code(s): J96.21 - Acute and chronic respiratory failure with hypoxia; J96.22 - Acute and chronic respiratory failure with hypercapnia Status: Acute Assessment and Plan: Acute on chronic hypercapnic respiratory failure likely secondary to COPD exacerbation, stroke, pneumonia -patient could have felt weak because of hypercapnia, possible stroke, anemia -patient on BiPAP initially was and 14/8 which was switched to 18/8, repeat ABGs seem to be improving -continue bronchodilators, -continued Budesonide nebulizer -will start Solu-Medrol -started patient on ceftriaxone and azithromycin (3) COPD (chronic obstructive pulmonary disease): Code(s): J44.9 - Chronic obstructive pulmonary disease, unspecified Status: Acute Assessment and Plan: As above (4) Acute anemia: Code(s): D64.9 - Anemia, unspecified Status: Acute Assessment and Plan: Anemia likely related to GI bleed secondary to hypercoagulability state on rivaroxaban -INR was 7.9 on admission - hold rivaroxaban for now -appreciate GI evaluation and recommendations -continue PPI IV q.12 hours -check iron panel, folate and B12 (5) Ischemic cardiomyopathy: Code(s): I25.5 - Ischemic cardiomyopathy Status: Acute Assessment and Plan: Ischemic cardiomyopathy with CHF -echocardiogram on 01/25/2022: Normal LV systolic function, mild concentric LVH, restrictive diastolic dysfunction grade 3-4, EF 68% Severe enlargement of RV, severe enlargement of RA moderate pulmonary hypertension with RVSP of 53 mmHg -cardiology following the patient Blood pressures have been borderline, therefore holding Lasix, losartan, spironolactone. (6) Acute renal failure: Qualifiers: Acute renal failure type: unspecified Qualified Code(s): N17.9 - Acute kidney failure, unspecified Code(s): N17.9 - Acute kidney failure, unspecified Status: Acute Assessment and Plan: Acute kidney injury likely related to pneumonia, COPD, hypotension, diuretics at home -baseline creatinine 1.2 in October 2021 -creatinine admission was 2.5, this morning is 2.2 -will hold Lasix, spironolactone for now -proBNP BNP 5750 -continue to monitor urine output, electrolytes and renal function (7) Atrial fibrillation with rapid ventricular response: Code(s): I48.91 - Unspecified atrial fibrillation Status: Resolved Assessment and Plan: Patient with history of atrial fibrillation, currently in AFib, rate controlled -continue amiodarone Plan DVT prophylaxis: Hold rivaroxaban anemia bleed and likely GI bleed
[2022-03-19 12:19] LABS: Percent Iron Saturation 6 % (20-50)
[2022-03-19] MEDS: PANTOPRAZOLE SODIUM IV 40 MG VIAL IV PUSH ×2 (12:53→21:17)
[2022-03-19] MEDS: cefTRIAXone 2 GM in SODIUM CHLORIDE 0.9% IV 100 ML 200 ML IVPB (12:54)
[2022-03-19] MEDS: methylPREDNISolone SOD SUCC 125 MG VIAL 40 MG IV PUSH ×2 (13:10→17:25)
[2022-03-19 13:18] LABS: Glucose Point of Care 100 mg/dl (65-105)
--- NOTE | 2022-03-19 13:19 | PM.CNCAR ---
Assessment and Plan Assessment and plan (1) Acute CVA (cerebrovascular accident): Code(s): I63.9 - Cerebral infarction, unspecified Status: Acute (2) Acute on chronic respiratory failure with hypoxia and hypercapnia: Code(s): J96.21 - Acute and chronic respiratory failure with hypoxia; J96.22 - Acute and chronic respiratory failure with hypercapnia Status: Acute (3) Supratherapeutic INR: Code(s): R79.1 - Abnormal coagulation profile Status: Acute (4) Acute gastrointestinal bleeding: Code(s): K92.2 - Gastrointestinal hemorrhage, unspecified Status: Acute (5) Occult blood in stools: Code(s): R19.5 - Other fecal abnormalities Status: Acute (6) Anemia: Code(s): D64.9 - Anemia, unspecified Status: Acute (7) Acute renal failure: Qualifiers: Acute renal failure type: unspecified Qualified Code(s): N17.9 - Acute kidney failure, unspecified Code(s): N17.9 - Acute kidney failure, unspecified Status: Acute (8) Acute exacerbation of CHF (congestive heart failure): Qualifiers: Heart failure type: unspecified Qualified Code(s): I50.9 - Heart failure, unspecified Code(s): I50.9 - Heart failure, unspecified Status: Acute (9) CAD (coronary artery disease): Qualifiers: Coronary Disease-Associated Artery/Lesion type: unspecified vessel or lesion type [place] vs. transplanted heart: unspecified whether [place] or transplanted heart Associated angina: unspecified whether angina present Qualified Code(s): I25.10 - Atherosclerotic heart disease of [place] coronary artery without angina pectoris Code(s): I25.10 - Atherosclerotic heart disease of [place] coronary artery without angina pectoris Status: Acute Plan Patient has some evidence of volume overload on exam, however, Lasix is on hold right now due to his blood pressures. His other antihypertensives are on old due to his blood pressure and renal function. Continue with Amiodarone for his atrial fibrillation. Given INR of 7, hold anticoagulation. Patient has been accepted to Neuro ICU at [facility]. It appears that he is still waiting for a bed over there. History of Present Illness History of Present Illness Consult date/time: 03/19/22 13:19 Requesting physician: Yasmany Pittman MD Consult reason: atrial fibrillation and congestive heart failure Reason For Visit: CVA,CHF,GIB w/anemia,Acute Resp Failur,elevatedINR Narrative: We are being consulted for atrial fibrillation, congestive heart failure, CAD. This is a 72-year-old male with a history of known significant CAD. He's had a history of MVCAD and STEMI, successfully resuscitated VFIB cardiac arrest in the setting of acute CA, s/p 3-V CABG with L[place]-LAD, radial to OM2-, SVG to PLB of RCA in 2018. Had postop atrial fibrillation s/p cardioversion. He was last seen in our clinic in 06/2021. He had been hospitalized around that time for syncope and was noted to be in atrial fibrillation with RVR. He was doing well at clinic visit at that time. We continued Amiodarone and Metoprolol. On systemic anticoagulation with Xarelto. Per our notes, it appears that he has some mild chronic lower extremity edema. He presented to the [facility] ER this time with generalized weakness, increased breathing difficulty. Unable to walk. In the ER, Hgb noted to be 6.8, patient was given 1 unit of blood. Has had blood in stools over the past week. INR was 7.9. Patient on BIPAP for acute on chronic hypercapnic respiratory failure likely secondary to COPD exacerbation. Head CT shows age-indeterminate small right cerebellar infarction which is new since 10/16/2021. Had evidence of old infarctions. Head and Neck CTA show 80% stenosis of proximal CASIMIRO, 55% stenosis of LICA, severe stenosis of the LICA extending into the cavernous segment of aorta. Troponins negative x 2. NT pro BNP elevated at 5750 EKG and telemetry show rate
[2022-03-19 14:00] LABS: Folic Acid 8.2 ng/mL (2.76->20)
[2022-03-19] MEDS: ALBUTEROL SULFATE NEB 2.5 MG/3 ML INH 5 MG INHALATION ×4 (16:44→23:39)
[2022-03-19] MEDS: IPRATROPIUM BR 0.02% INH SOLN 0.5 MG/2.5 ML VIAL INHALATION ×3 (16:47→23:39)
[2022-03-19] MEDS: ATORVASTATIN 40 MG TABLET PO (21:17)
[2022-03-19] MEDS: HALOPERIDOL LACTATE 5 MG/ML VIAL IM (23:05)
[2022-03-20] VITALS (30 sets, daily range): BP systolic 103–131; BP diastolic 48–64; PULSE 21–107; RESP 15–70; TEMP 35.3–37.5; O2SAT 90–100
[2022-03-20] MEDS: methylPREDNISolone SOD SUCC 125 MG VIAL 40 MG IV PUSH ×4 (01:30→17:59)
[2022-03-20 04:07] LABS: Basophils Percent Auto 0.1 % (0.2-1.2); Hematocrit 24.6 % (42.0-52.0); Immature Granulocyte Absolute 0.04 K/mm3 (0.00-0.031); Immature Granulocyte Percent A 0.5 % (0-0.5); Lymphocytes Absolute Auto 0.29 K/mm3 (0.9-3.2); Mean Corpuscular HGB Conc 28.5 g/dl (32-36); Mean Corpuscular Hemoglobin 22.2 pg (26-34); Mean Corpuscular Volume 78.1 fl (80-100); Mean Platelet Volume 9.6 fl (7.4-10.4); Monocytes Absolute Auto 0.2 K/mm3 (0.1-0.6); Monocytes Percent Auto 2.7 % (2.6-8.5); Neutrophils Absolute Auto 6.8 K/mm3 (1.3-6.7); Neutrophils Percent Auto 92.7 % (45.5-73.1); Platelet Count Result 543 k/mm3 (150-375); Red Blood Count 3.15 M/mm3 (4.6-6.20); White Blood Count 7.3 K/mm3 (4.5-10.0)
[2022-03-20] MEDS: ALBUTEROL SULFATE NEB 2.5 MG/3 ML INH 5 MG INHALATION ×4 (04:09→22:45)
[2022-03-20] MEDS: IPRATROPIUM BR 0.02% INH SOLN 0.5 MG/2.5 ML VIAL INHALATION ×5 (04:09→22:45)
[2022-03-20 04:18] LABS: Alanine Aminotransferase 85 U/L (6-50); Albumin Level 3.5 g/dL (3.5-5.1); Alkaline Phosphatase 128 U/L (38-126); Anion Gap 9 mmol/L (8-16); Aspartate Amino Transferase 144 U/L (17-59); Bilirubin,Total 1.2 mg/dL (0.2-1.3); Blood Urea Nitrogen 43 mg/dL (9-20); Calcium 8.2 mg/dL (8.4-10.2); Carbon Dioxide 25 mmol/L (22-30); Chloride 106 mmol/L (98-107); Estimated CRCL calculation 35 ml/min; Estimated Glomerular Filt Rate 28; Glucose 159 mg/dL (65-110); Magnesium 2.3 mg/dL (1.6-2.3); Phosphorus 4.8 mg/dL (2.5-4.5); Potassium 5.6 mmol/L (3.4-5.0); Sodium 140 mmol/L (137-145)
[2022-03-20 04:24] LABS: Platelet Estimate Increased (Adequate)
[2022-03-20 04:25] LABS: Anisocytosis 1+ (NORMAL); Burr Cells 1+ (NORMAL); Hypochromasia 1+ (NORMAL); Ovalocytes 1+ (NORMAL); Poikilocytosis 1+ (NORMAL)
[2022-03-20 04:26] LABS: Schistocytes Rare (NORMAL)
[2022-03-20 05:18] LABS: Alveolar/Arterial O2 Gradient 179.9 mmHg; Carboxyhemoglobin 0.3 % THb (0-2.0); Fractional Inspired Oxygen 45 %; HCO3 ABG 25.9 mEq/l (22.0-26.0); Methemoglobin ABG 0.3 %THb (0-1.5); Oxygen Saturation ABG 93.8 % (95.0-100.0); Oxyhemoglobin 92.4 % THb (90.0-100.0); PCO2 ABG 55.7 mmHg (35.0-45.0); PO2 ABG 77.6 mmHg (80.0-100.0); PO2 FiO2 Ratio Arterial Blood 1.72 %; Total Hemoglobin 8.4 g/dL (12.0-18.0)
[2022-03-20 05:21] LABS: Device BIPAP; Modified Allen's Test Pass; Site Drawn RIGHT BRACHIAL
[2022-03-20 05:22] LABS: Expiratory Pressure 8 cmH2O; Inspiratory Pressure 18 cmH2O
[2022-03-20] MEDS: LEVOTHYROXINE SODIUM INJ 100 MCG/5 ML VIAL 25 MCG IV PUSH (07:00)
[2022-03-20] MEDS: BUDESONIDE RESPULE NEB 0.5 MG/2 ML AMP INHALATION ×2 (08:00→22:45)
--- NOTE | 2022-03-20 08:01 | WPDGIPROGNO ---
Progress Note: A&P Assessment and Plan (1) Anemia: Code(s): D64.9 - Anemia, unspecified Status: Acute Assessment and Plan: Patient presented with anemia and evidence for some GI blood loss. It appears this was aggravated by anticoagulated status. Supratherapeutic INR noted presentation. Patient has significant comorbid diseases. Plan to hold anticoagulation monitor hemoglobin and transfuse as necessary. Invasive testing should be defer given his significant cardiopulmonary disease. (2) Occult blood in stools: Code(s): R19.5 - Other fecal abnormalities Status: Acute Assessment and Plan: No active bleeding at this time. (3) Acute CVA (cerebrovascular accident): Code(s): I63.9 - Cerebral infarction, unspecified Status: Acute Assessment and Plan: New CVA noted. Neurology following. Patient likely to be transferred to tertiary care center. (4) Supratherapeutic INR: Code(s): R79.1 - Abnormal coagulation profile Status: Acute Assessment and Plan: Supratherapeutic INR noted. Anticoagulation on hold because recent GI blood loss. No significant additional bleeding noted. May need to reconsider use of anticoagulants in this patient. (5) Acute exacerbation of CHF (congestive heart failure): Qualifiers: Heart failure type: unspecified Qualified Code(s): I50.9 - Heart failure, unspecified Code(s): I50.9 - Heart failure, unspecified Status: Acute (6) Alcohol abuse: Code(s): F10.10 - Alcohol abuse, uncomplicated Status: Acute (7) Obese: Code(s): E66.9 - Obesity, unspecified Status: Acute Subjective Date/time seen: 03/20/22 08:01 Patient unable to give significant history at this point. Remains on BiPAP at night. No active bleeding described at this point. Appears to have had a new CVA. Review of Systems Review of Systems: Review of systems noncontributory Exam Narrative: physical exam reveals patient be alert. Vital signs stable. Lungs reveal scattered rhonchi. Abdomen is obese. Bowel sounds present soft nontender with no masses or organomegaly. Objective Data Vital Signs Vital Signs: Vital Signs - 24 hr 03/19/22 08:15 03/19/22 10:00 03/19/22 10:00 Temperature 97.6 F Pulse Rate 88 72 72 Respiratory Rate 26 H 20 Blood Pressure 107/54 L Pulse Oximetry 97 95 Oxygen Delivery BiPAP Fraction of Inspired Oxygen 03/19/22 11:47 03/19/22 12:00 03/19/22 12:00 Temperature Pulse Rate 79 85 Respiratory Rate 26 H Blood Pressure Pulse Oximetry 98 99 Oxygen Delivery BiPAP BiPAP Fraction of Inspired Oxygen 40 03/19/22 12:00 03/19/22 14:18 03/19/22 14:00 Temperature 98.0 F Pulse Rate 74 72 74 Respiratory Rate 21 H 23 H Blood Pressure 96/47 L Pulse Oximetry 95 98 Oxygen Delivery BiPAP Fraction of Inspired Oxygen 03/19/22 14:00 03/19/22 16:00 03/19/22 16:00 Temperature 98.3 F 98.4 F Pulse Rate 74 74 Respiratory Rate 22 H 17 Blood Pressure 89/79 L 103/57 L Pulse Oximetry 99 97 97 Oxygen Delivery BiPAP Fraction of Inspired Oxygen 50 03/19/22 16:58 03/19/22 16:00 03/19/22 18:00 Temperature Pulse Rate 73 79 73 Respiratory Rate 22 H Blood Pressure Pulse Oximetry 98 Oxygen Delivery BiPAP Fraction of Inspired Oxygen 03/19/22 18:00 03/19/22 20:10 03/19/22 20:00 Temperature 98.4 F Pulse Rate 78 84 85 Respiratory Rate 22 H 21 H Blood Pressure 104/54 L Pulse Oximetry 97 98 Oxygen Delivery BiPAP Fraction of Inspired Oxygen 03/19/22 20:00 03/19/22 20:00 03/19/22 20:09 Temperature 99.3 F Pulse Rate 84 95 90 Respiratory Rate 21 H 22 H 21 H Blood Pressure 110/77 Pulse Oximetry 98 97 Oxygen Delivery BiPAP Fraction of Inspired Oxygen 50 03/19/22 21:55 03/19/22 21:55 03/19/22 23:31 Temperature 98.9 F Pulse Rate 87 87 88 Respiratory Rate 24 H Blood Pressure 99/70 L
[2022-03-20] MEDS: SODIUM CHLORIDE 0.9% IV 250 ML 30 ML IV CONT (08:21)
[2022-03-20] MEDS: ALBUTEROL SULFATE NEB 2.5 MG/3 ML INH 10 MG INHALATION (08:27)
[2022-03-20] MEDS: INSULIN HUMAN REGULAR (*BKC) 100 UNITS/ML 10 UNITS IV PUSH (09:17)
[2022-03-20] MEDS: DEXTROSE 50% 25 GM/50 ML SYRINGE IV PUSH (09:20)
[2022-03-20] MEDS: SODIUM BICARBONATE 8.4% 50 MEQ/50 ML SYRINGE IV PUSH (09:22)
[2022-03-20] MEDS: PANTOPRAZOLE SODIUM IV 40 MG VIAL IV PUSH ×2 (09:29→23:27)
--- NOTE | 2022-03-20 10:25 | WPDNEURCNPN ---
Assessment and Plan Assessment and plan (1) Acute CVA (cerebrovascular accident): Code(s): I63.9 - Cerebral infarction, unspecified Status: Acute (2) Anemia: Code(s): D64.9 - Anemia, unspecified Status: Acute (3) Supratherapeutic INR: Code(s): R79.1 - Abnormal coagulation profile Status: Acute (4) Acute gastrointestinal bleeding: Code(s): K92.2 - Gastrointestinal hemorrhage, unspecified Status: Acute (5) Acute on chronic respiratory failure with hypoxia and hypercapnia: Code(s): J96.21 - Acute and chronic respiratory failure with hypoxia; J96.22 - Acute and chronic respiratory failure with hypercapnia Status: Acute (6) Acute renal failure: Qualifiers: Acute renal failure type: unspecified Qualified Code(s): N17.9 - Acute kidney failure, unspecified Code(s): N17.9 - Acute kidney failure, unspecified Status: Acute (7) Acute exacerbation of CHF (congestive heart failure): Qualifiers: Heart failure type: unspecified Qualified Code(s): I50.9 - Heart failure, unspecified Code(s): I50.9 - Heart failure, unspecified Status: Acute Plan Zack Dai is a 72 year old male with a history of atrial fibrillation, CHF, CAD, COPD, CKD who presented due to right sided weakness in the setting of supratherapeutic INR resulting in GI bleeding, complicated by respiratory failure. Concern for acute stroke given new focal findings of R sided weakness. Anticoagulation is currently being held due to bleeding. Will have to weigh risk/benefits of resuming anticoagulation for the purpose of stroke prevention. Choice of antithrombotic will also depend on distribution of stroke considering patient could have had infarct secondary to large vessel disease (in which case he would required DAPT with ASA and Plavix) or cardioembolic from atrial fibrillation (switching to Eliquis or warfarin). Patient is awaiting transfer to [facility] Neuro ICU. - Recommend MRI brain and surface echo w/ bubble study - Increase Lipitor to 80mg daily - ASA and Xarelto currently being held Consult date: 03/20/22 Time Seen: 10:25 Reason for consult: Acute stroke HPI: Zack Dai is a 72 year old male with a history of atrial fibrillation, CHF, CAD, COPD, CKD who presented initially due to weakness. Patient had not been himself, per his , for past few weeks. There were concerns about him hallucinating and being confused, as well as increased work of breathing. On the day of admission, patient was walking down stairs, but at some point became to weak to walk. noted that he was very weak on right side. He was taken to [place] ED where he was notably flaccid on the right side. His NIH score was 12. CT head showed small R cerebral infarct (new since October 2021), but no acute changes. CTA showed 80% stenosis of proximal R ICA and 55% stenosis of proximal L ICA, as well as severe stenosis of the L ICA extending into cavernous segment of aorta and mild stenosis of R ICA at cavernous sinus. Case was discussed with [facility] stroke team. He could not receive tPA due to being on Xarelto. He was accepted for transfer to [facility] Neuro ICU, but currently no beds are available. Of note, patient's BP on arrival was 79/47. Hgb was 6.8 and INR 7.9. Patient had been having rectal bleeding. Apparently the Xarelto had been discontinued for unknown reason, but he did take doses on 03/16 and 03/17. Xarelto and aspirin are currently being held. Yesterday morning INR was 3.7. He is currently on BiPAP for respiratory support. Review of Systems Review of Systems: ROS unobtainable: Yes unobtainable due to medical condition and unobtainable due to mental status PMFSH Past Medical History Medical History Abdominal distension Alcohol abuse Asbestosis Atrial fibrillation with rapid ventricular response BMI 34.0-34.9,adult BMI over 35 Chronic hypercapnic respiratory failure COPD (chronic obstructive pul
[2022-03-20] MEDS: FUROSEMIDE INJ 40 MG/4 ML VIAL 20 MG IV PUSH ×2 (10:29→16:41)
--- NOTE | 2022-03-20 10:59 | P.CDI_ITS ---
CDI Query Clarified Diagnosis Clarified Diagnosis: BNP elevated on 03/18/22 lab work. Patient receiving IV Lasix. Acute exacerbation of CHF noted under assessment and plan. Patient with documented edema. Patient requiring a Bipap. Please specify type and acuity of heart failure if known. * Acute * Chronic * Acute on Chronic * Unknown * Systolic * Diastolic * Combined Systolic and Diastolic * Unknown
[2022-03-20 11:33] LABS: Hematocrit 27.9 % (42.0-52.0); Hemoglobin 8.2 g/dL (14.0-18.0)
[2022-03-20 11:44] LABS: Anion Gap 9 mmol/L (8-16); Blood Urea Nitrogen 45 mg/dL (9-20); Calcium 8.4 mg/dL (8.4-10.2); Carbon Dioxide 26 mmol/L (22-30); Chloride 107 mmol/L (98-107); Estimated CRCL calculation 37 ml/min; Estimated Glomerular Filt Rate 30; Glucose 166 mg/dL (65-110); Potassium 5.2 mmol/L (3.4-5.0); Sodium 142 mmol/L (137-145)
--- NOTE | 2022-03-20 12:59 | PCFNICU ---
ICU Rounding Note: Pt current nutrition is NPO. Last recorded weight is 114.3 kg. Bowel Motility: No BM reported. Labs Reviewed:PO4 4.8,BUN 43, Cr 2.3,Glu 159, K 5.6, Hct 24.6,Hgb 7.0 Meds Noted:Protonix,Zithromax Skin: WNL Additional Notes: Patient remains NPO,remains on Bipap. Plans for Swallow Evaluation. Following daily in ICU rounds.
[2022-03-20] MEDS: cefTRIAXone 2 GM in SODIUM CHLORIDE 0.9% IV 100 ML 200 ML IVPB (13:03)
[2022-03-20 13:34] LABS: Alveolar/Arterial O2 Gradient 319.6 mmHg; Carboxyhemoglobin 0.3 % THb (0-2.0); HCO3 ABG 26.5 mEq/l (22.0-26.0); Methemoglobin ABG 0.2 %THb (0-1.5); Oxygen Content ABG 11.3 %vol (16.0-22.0); Oxygen Saturation ABG 88.6 % (95.0-100.0); PCO2 ABG 46.7 mmHg (35.0-45.0); PO2 ABG 56.8 mmHg (80.0-100.0); PO2 FiO2 Ratio Arterial Blood 0.95 %; Reduced Hemoglobin 11.9 %THb (0-5.0); Total Hemoglobin 9.1 g/dL (12.0-18.0); pH ABG 7.372 (7.350-7.450)
[2022-03-20 13:36] LABS: Device OTHER DEVICE; Oxyhemoglobin 87.6 % THb (90.0-100.0); Site Drawn RIGHT BRACHIAL
[2022-03-20 13:37] LABS: Fractional Inspired Oxygen 45 %
--- NOTE | 2022-03-20 14:22 | WPDINTPN ---
Progress Note: A&P Assessment and Plan (1) Acute CVA (cerebrovascular accident): Code(s): I63.9 - Cerebral infarction, unspecified Status: Acute Assessment and Plan: Patient presented with generalized weakness on 03/18/2022, brain CT on admission showed age indeterminate small right cerebellar infarct which is new since 10/16/2021, several unchanged small infarcts in the bilateral occipital lobes, left frontal lobe, left cerebral hemisphere and couple of small lacunar infarcts at the bilateral basal ganglia. Chronic age-related changes -CTA head and neck 03/18/2022: 80% stenosis of the proximal right internal carotid artery relative to normal distal artery lumen diameter (NASCET criteria).. 55% stenosis of the proximal left internal carotid artery relative to normal distal artery lumen diameter.? Severe stenosis of the left internal carotid artery extending into the cavernous segment of the aorta.:? Mild stenosis of the right internal carotid artery at the cavernous sinus. Evaluation is limited by significant motion artifact. Mild stenosis at the origin of both subclavian arteries. The ER physician had called Neurology had [facility], patient has been accepted awaiting bed -neurology consulted, recommended Lipitor 80 mg q.h.s., since echocardiogram with bubble study -patient to get bedside swallow evaluation by speech therapy -MRI once patient is more stable respiratory clay (2) Acute on chronic respiratory failure with hypoxia and hypercapnia: Code(s): J96.21 - Acute and chronic respiratory failure with hypoxia; J96.22 - Acute and chronic respiratory failure with hypercapnia Status: Acute Assessment and Plan: Acute on chronic hypercapnic respiratory failure likely secondary to COPD exacerbation, stroke, pneumonia -patient could have felt weak because of hypercapnia, possible stroke, anemia -patient on BiPAP initially was and 14 which was switched to 18/8, repeat ABGs seem to be improving -continue bronchodilators, -continued Budesonide nebulizer - will wean Solu-Medrol to off -continue ceftriaxone and azithromycin (03/19) -patient has been switched to Vapotherm (high velocity), repeat ABGs much improved, continue patient on Vapotherm (3) COPD (chronic obstructive pulmonary disease): Code(s): J44.9 - Chronic obstructive pulmonary disease, unspecified Status: Acute Assessment and Plan: As above (4) Acute anemia: Code(s): D64.9 - Anemia, unspecified Status: Acute Assessment and Plan: Anemia likely related to GI bleed secondary to hypercoagulability state on rivaroxaban -INR was 7.9 on admission, improved to 3.7 - hold rivaroxaban for now -appreciate GI evaluation and recommendations no intervention at this time, continue to hold anticoagulation -continue PPI IV q.12 hours -no iron levels, low iron saturation, likely iron deficiency -vitamin B12 and folic acid levels are within normal limits -03/20: Hemoglobin dropped to 7.0, will transfuse 1 unit of packed RBCs today (5) Ischemic cardiomyopathy: Code(s): I25.5 - Ischemic cardiomyopathy Status: Acute Assessment and Plan: Ischemic cardiomyopathy with CHF -echocardiogram on 01/25/2022: Normal LV systolic function, mild concentric LVH, restrictive diastolic dysfunction grade 3-4, EF 68% Severe enlargement of RV, severe enlargement of RA moderate pulmonary hypertension with RVSP of 53 mmHg -cardiology following the patient Blood pressure is better this morning, will diurese patient with Lasix IV b.i.d. - holding Lasix, losartan, spironolactone. (6) Acute renal failure: Qualifiers: Acute renal failure type: unspecified Qualified Code(s): N17.9 - Acute kidney failure, unspecified Code(s): N17.9 - Acute kidney failure, unspecified Status: Acute Assessment and Plan: Acute kidney injury likely related to pneumonia, COPD, hypotension, diuretics at home -baseline
--- NOTE | 2022-03-20 15:36 | PCSTNOTE ---
Please refer to the Bedside Swallow Evaluation in the EMR. Please note, silent aspiration cannot be ruled out at bedside.
--- NOTE | 2022-03-20 15:43 | PM.IMPN ---
Progress Note: A&P Assessment and Plan (1) Acute CVA (cerebrovascular accident): Code(s): I63.9 - Cerebral infarction, unspecified Status: Acute Assessment and Plan: acute cerebellar infarct patient on anticoagulation patient on statin patient on aspirin 03/20/2022 interval history: 72-year-old male with history chronic hypercarbic respiratory failure and hypoxic with supplemental oxygen presented with a right-sided weakness and altered mental status was found to have acute CVA, patient is chronically anticoagulated with concern of bleeding which is on hold, patient seen by neurologist recommended MRI and cardiac echo with bubble study further evaluation, patient with hypercarbic respiratory failure secondary to COPD patient is being treated with methylprednisone, and bronchodilator, currently patient states feeling better compared to when he arrived, is seen by blocker metal base (2) COPD (chronic obstructive pulmonary disease): Code(s): J44.9 - Chronic obstructive pulmonary disease, unspecified Status: Acute Assessment and Plan: does not appear to be exacerbated not actively wheezing continue breathing treatment (3) Ischemic cardiomyopathy: Code(s): I25.5 - Ischemic cardiomyopathy Status: Acute Assessment and Plan: continue home meds continue to monitor (4) CAD (coronary artery disease): Qualifiers: Associated angina: unspecified whether angina present Coronary Disease-Associated Artery/Lesion type: unspecified vessel or lesion type [place] vs. transplanted heart: unspecified whether [place] or transplanted heart Qualified Code(s): I25.10 - Atherosclerotic heart disease of [place] coronary artery without angina pectoris Code(s): I25.10 - Atherosclerotic heart disease of [place] coronary artery without angina pectoris Status: Acute Assessment and Plan: status post coronary artery bypass graft continue to monitor (5) Obesity hypoventilation syndrome: Code(s): E66.2 - Morbid (severe) obesity with alveolar hypoventilation Status: Acute Assessment and Plan: continue BiPAP (6) Sleep apnea: Code(s): G47.30 - Sleep apnea, unspecified Status: Acute Assessment and Plan: continue BiPAP (7) Alcohol abuse: Code(s): F10.10 - Alcohol abuse, uncomplicated Status: Acute Assessment and Plan: patient has been sober for many years according to record (8) Chronic hypercapnic respiratory failure: Code(s): J96.12 - Chronic respiratory failure with hypercapnia Status: Acute Assessment and Plan: patient is a chronic retainer of CO2 on supplemental oxygen at home Subjective Date/time seen: 03/20/22 15:43 Chief Complaint: ?weakness HPI-Narrative: ?This is a 72-year-old male with past medical history significant for COPD, paroxysmal atrial fibrillation rate controlled, history of alcohol abuse, patient uses a walker and a Rollator at home walks short distances within the house, dyslipidemia, chronic respiratory failure? with hypercarbia and hypoxia on supplemental oxygen,? coronary artery disease status post coronary artery bypass graft.? Patient was brought to the emergency room due to weakness,? altered mental status.? At the time of my visit patient was on BiPAP and was unable to give any history which I have obtained mainly upon reviewing medical records and emergency room records as well. preliminary workup was significant for a blood gas pH was 7.24, pCO2 55 PO2 150 hemoglobin of 7 patient tested negative for COVID 19, influenza A and influenza B. patient has been admitted for further evaluation management and treatment. 03/20/2022 interval history: 72-year-old male with history chronic hypercarbic respiratory failure and hypoxic with supplemental oxygen presented with a right-sided weakness and altered mental status was found to have acute CVA, patient is chronically an
[2022-03-20] MEDS: LORazepam INJ (*CRX) 2 MG/ML VIAL 0.5 MG IV PUSH (23:27)
[2022-03-21] VITALS (26 sets, daily range): BP systolic 104–124; BP diastolic 48–86; PULSE 11–133; RESP 16–30; TEMP 36.5–37.4; O2SAT 28–98
--- NOTE | 2022-03-21 | ECHO_ITS ---
Patient Info Name: Zack Dai Age: 72 years : 1950 Gender: Male Ht: 71 in Wt: 251 lbs BSA: 2.43 m2 HR: 114 bpm BP: 120 / 59 mmHg Heart Rhythm: Atrial Fibrillation Exam Date: 03/21/2022 11:04 AM Exam Location: Echo Lab Patient Status: Inpatient Admit Date: 03/18/2022 Staff Ordering Physician: Yasmany Pittman MD Plumbing Manager: Ashanti Alexander RCS Attending Provider: Javier Bai MD Referring Physician: Toya BYERS; Exam Type: CA echo doppler w bubble study Study Info Indications - recent CVA Complete two-dimensional, color flow and Doppler transthoracic echocardiogram is performed with agitated saline. Contrast/Agitated Saline Contrast/Ag. Saline: Agitated Saline Amount: 20.00 ml Administered By: Ashanti Alexander Existing IV Access: Yes IV Access Condition: patent with no signs of infiltration Summary 1. Normal left ventricular size thickness and systolic function. 2. Calcified mitral valve annulus with small amount of MR. 3. Sclerotic aortic valve which is not stenotic. 4. Agitated saline contrast demonstrates no intracardiac shunt. 5. Atrial fibrillation. Left Ventricle Left ventricular chamber dimension is normal. Left ventricular systolic function is normal, estimated at 65-70%. The left ventricular diastolic function is indeterminate. Right Ventricle Right ventricular chamber dimension is mildly enlarged. Left Atria Left atrial chamber dimension is moderately enlarged. Right Atria Right atrial chamber dimension is normal. Atrial Septum Intact interatrial septum visualized by agitated saline imaging. Aortic Valve The aortic valve is trileaflet. There is mild aortic valve sclerosis. There is no aortic valve stenosis. Pulmonic Valve The pulmonic valve is not well visualized. Mitral Valve The mitral valve has normal leaflets. There is trace mitral valve regurgitation. The mitral valve annulus is moderately calcified. Tricuspid Valve The tricuspid valve leaflets are normal. There is mild tricuspid valve regurgitation. Pericardium/Pleural The pericardium appears normal. Aorta The aortic root size at the sinus of Valsalva is normal. Left Ventricular Outflow Tract Name Value Normal LVOT 2D LVOT Diameter 2.2 cm LVOT Doppler LVOT Peak Gradient 5 mmHg LVOT Mean Gradient 3 mmHg LVOT VTI 20 cm LVOT VTI/AV VTI Ratio 0.9 LVOT Stroke Volume 77 ml LVOT CO 18.5 l/min LVOT CI 7.6 l/min/m2 Pulmonic Valve Name Value Normal PV Doppler PV Peak Gradient 3 mmHg Mitral Valve
--- NOTE | 2022-03-21 01:43 | PCRCNOTE ---
0000 treatment would have been too close to patient's previous treatment. Next updraft is 0400.
[2022-03-21] MEDS: IPRATROPIUM BR 0.02% INH SOLN 0.5 MG/2.5 ML VIAL INHALATION ×5 (04:20→20:20)
[2022-03-21] MEDS: ALBUTEROL SULFATE NEB 2.5 MG/3 ML INH 5 MG INHALATION ×5 (04:20→20:20)
[2022-03-21 04:38] LABS: Hematocrit 27.2 % (42.0-52.0); Hemoglobin 7.8 g/dL (14.0-18.0); Mean Corpuscular HGB Conc 28.7 g/dl (32-36); Mean Corpuscular Hemoglobin 22.2 pg (26-34); Mean Corpuscular Volume 77.3 fl (80-100); Mean Platelet Volume 9.6 fl (7.4-10.4); Platelet Count Result 532 k/mm3 (150-375); Red Blood Count 3.52 M/mm3 (4.6-6.20); Red Cell Distribution Width 21.1 % (11.5-14.5); White Blood Count 10.8 K/mm3 (4.5-10.0)
[2022-03-21 04:54] LABS: Alanine Aminotransferase 81 U/L (6-50); Albumin Level 3.7 g/dL (3.5-5.1); Alkaline Phosphatase 112 U/L (38-126); Anion Gap 4 mmol/L (8-16); Aspartate Amino Transferase 127 U/L (17-59); Bilirubin,Total 0.8 mg/dL (0.2-1.3); Blood Urea Nitrogen 49 mg/dL (9-20); Calcium 8.4 mg/dL (8.4-10.2); Carbon Dioxide 30 mmol/L (22-30); Chloride 105 mmol/L (98-107); Estimated CRCL calculation 35 ml/min; Estimated Glomerular Filt Rate 28; Glucose 203 mg/dL (65-110); INR 1.8; Magnesium 2.6 mg/dL (1.6-2.3); Phosphorus 4.2 mg/dL (2.5-4.5); Potassium 4.8 mmol/L (3.4-5.0); Prothrombin Time 20.2 Seconds (11.1-14.7); Sodium 139 mmol/L (137-145)
[2022-03-21 04:55] LABS: Partial Thromboplastin Time 39.4 SECONDS (22.3-36.8)
[2022-03-21 05:06] LABS: Anisocytosis 3+ (NORMAL); Band Neutrophils Percent 2 % (0-6); Lymphocytes Absolute Manual 0.32 K/mm3 (1.1-4.5); Macrocytosis 1+ (NORMAL); Metamyelocytes Percent 1 %; Microcytosis 3+ (NORMAL); Monocytes Absolute Manual 0.21 K/mm3 (0.1-0.90); Monocytes Percent Manual 2 % (3-9); Neutrophils Absolute Manual 10.15 K/mm3 (1.3-6.7); Neutrophils Percent Manual 92 % (46-73); Ovalocytes 3+ (NORMAL); Poikilocytosis 3+ (NORMAL); Schistocytes 2+ (NORMAL); Tear Drop Cells 1+ (NORMAL); Total Cells Counted 100
[2022-03-21 05:07] LABS: Acanthocytes 2+ (NORMAL); Hypochromasia 3+ (NORMAL); Target Cells 1+ (NORMAL)
[2022-03-21 05:13] LABS: Burr Cells 2+ (NORMAL); Stomatocytes 1+ (NORMAL)
[2022-03-21 06:28] LABS: Alveolar/Arterial O2 Gradient 271.1 mmHg; Base Excess ABG 1.1 mEq/l (+/-2.0); Carboxyhemoglobin 0.3 % THb (0-2.0); Fractional Inspired Oxygen 55 %; HCO3 ABG 27.4 mEq/l (22.0-26.0); Methemoglobin ABG 0.4 %THb (0-1.5); Oxygen Content ABG 10.7 %vol (16.0-22.0); Oxygen Saturation ABG 90.3 % (95.0-100.0); PCO2 ABG 52.4 mmHg (35.0-45.0); PO2 ABG 62.8 mmHg (80.0-100.0); PO2 FiO2 Ratio Arterial Blood 1.14 %; Reduced Hemoglobin 11.8 %THb (0-5.0); Total Hemoglobin 8.6 g/dL (12.0-18.0); pH ABG 7.336 (7.350-7.450)
[2022-03-21 06:30] LABS: Oxyhemoglobin 87.5 % THb (90.0-100.0)
[2022-03-21 06:31] LABS: Device OTHER DEVICE; Modified Allen's Test Unable to perform; Site Drawn RIGHT RADIAL
[2022-03-21] MEDS: LEVOTHYROXINE SODIUM INJ 100 MCG/5 ML VIAL 25 MCG IV PUSH (07:02)
[2022-03-21] MEDS: BUDESONIDE RESPULE NEB 0.5 MG/2 ML AMP INHALATION ×2 (08:51→20:20)
[2022-03-21] MEDS: PANTOPRAZOLE SODIUM IV 40 MG VIAL IV PUSH ×2 (09:08→21:48)
[2022-03-21] MEDS: FUROSEMIDE INJ 40 MG/4 ML VIAL IV PUSH (09:59)
--- NOTE | 2022-03-21 11:23 | PCFNICU ---
ICU Rounding Note: Pt current nutrition is Heart Healthy, Pureed,Level 4 with Mild Thick liquids, Level 2. Last recorded weight is 114.3 kg. Bowel Motility: No BM reported. Labs Reviewed:GFR 28, BUN 49, Cr 2.3,Glu 203 Meds Noted:Protonix,Synthroid, Atrovent Skin: WNL Additional Notes:Patient had Bedside Swallow Eval today. Diet order advanced to Heart Healthy/Pureed, Level 4 diet with Mild Thick liquids. Following daily in ICU rounds.
[2022-03-21] MEDS: cefTRIAXone 2 GM in SODIUM CHLORIDE 0.9% IV 100 ML 200 ML IVPB (12:04)
--- NOTE | 2022-03-21 12:09 | WPDINTPN ---
Progress Note: A&P Assessment and Plan (1) Acute CVA (cerebrovascular accident): Code(s): I63.9 - Cerebral infarction, unspecified Status: Acute Assessment and Plan: Patient presented with generalized weakness on 03/18/2022, brain CT on admission showed age indeterminate small right cerebellar infarct which is new since 10/16/2021, several unchanged small infarcts in the bilateral occipital lobes, left frontal lobe, left cerebral hemisphere and couple of small lacunar infarcts at the bilateral basal ganglia. Chronic age-related changes -CTA head and neck 03/18/2022: 80% stenosis of the proximal right internal carotid artery relative to normal distal artery lumen diameter (NASCET criteria).. 55% stenosis of the proximal left internal carotid artery relative to normal distal artery lumen diameter.? Severe stenosis of the left internal carotid artery extending into the cavernous segment of the aorta.:? Mild stenosis of the right internal carotid artery at the cavernous sinus. Evaluation is limited by significant motion artifact. Mild stenosis at the origin of both subclavian arteries. The ER physician had called Neurology had [facility], patient has been accepted awaiting bed -neurology consulted, recommended Lipitor 80 mg q.h.s., - echocardiogram with bubble study done this morning and result pending -patient had repeat bedside swallow evaluation by speech therapy done this morning -MRI once patient is more stable respiratory clay -not on any antiplatelet agent due to anemia and suspected blood loss (2) Acute on chronic respiratory failure with hypoxia and hypercapnia: Code(s): J96.21 - Acute and chronic respiratory failure with hypoxia; J96.22 - Acute and chronic respiratory failure with hypercapnia Status: Acute Assessment and Plan: Acute on chronic hypercapnic respiratory failure likely secondary to COPD exacerbation, CHF, stroke, pneumonia -patient could have felt weak because of hypercapnia, possible stroke, anemia -patient on BiPAP initially was and 14 which was switched to 29/11, repeat ABGs seem to be improving - 03/21 -patient has been switched to Vapotherm (high velocity), repeat ABGs much improved, continue patient on Vapotherm -continue bronchodilators, -continued Budesonide nebulizer -patient received a course of Solu-Medrol -continue ceftriaxone and azithromycin (03/19) -patient also has congestive heart failure and Lasix ordered -respiratory status continues to be borderline. If he deteriorates he may need intubation and mechanical ventilation (3) COPD (chronic obstructive pulmonary disease): Code(s): J44.9 - Chronic obstructive pulmonary disease, unspecified Status: Acute Assessment and Plan: As above (4) Acute anemia: Code(s): D64.9 - Anemia, unspecified Status: Acute Assessment and Plan: Anemia likely related to GI bleed secondary to hypercoagulability state on rivaroxaban -INR was 7.9 on admission, improved to 3.7 - hold rivaroxaban for now -appreciate GI evaluation and recommendations no intervention at this time, continue to hold anticoagulation -continue PPI IV q.12 hours -no iron levels, low iron saturation, likely iron deficiency -vitamin B12 and folic acid levels are within normal limits -03/20: Hemoglobin dropped to 7.0, patient was transfused 1 unit of packed RBCs -monitor (5) Ischemic cardiomyopathy: Code(s): I25.5 - Ischemic cardiomyopathy Status: Acute Assessment and Plan: Ischemic cardiomyopathy with CHF -echocardiogram on 01/25/2022: Normal LV systolic function, mild concentric LVH, restrictive diastolic dysfunction grade 3-4, EF 68% Severe enlargement of RV, severe enlargement of RA moderate pulmonary hypertension with RVSP of 53 mmHg -cardiology following the patient Blood pressure is better this morning, continue diuresis - holding losartan, spironolactone. (6) Acute renal failure: Qualifiers:
--- NOTE | 2022-03-21 14:15 | WPDGIPROGNO ---
Progress Note: A&P Assessment and Plan (1) Occult blood in stools: Code(s): R19.5 - Other fecal abnormalities Status: Acute Assessment and Plan: Occult blood in stool noted on presentation. Stool was noted to be brown in nature. No active bleeding at this time. Follow conservatively for now. (2) Anemia: Code(s): D64.9 - Anemia, unspecified Status: Acute Assessment and Plan: Patient appears to have a chronic anemia. It may have slightly worsened this admission. No significant active bleeding cannot exclude stress gastritis or similar pathology. I would defer invasive testing at this time given his acute CVA and other comorbid diseases including respiratory difficulties. (3) Acute CVA (cerebrovascular accident): Code(s): I63.9 - Cerebral infarction, unspecified Status: Acute (4) Acute on chronic respiratory failure with hypoxia and hypercapnia: Code(s): J96.21 - Acute and chronic respiratory failure with hypoxia; J96.22 - Acute and chronic respiratory failure with hypercapnia Status: Acute (5) Supratherapeutic INR: Code(s): R79.1 - Abnormal coagulation profile Status: Acute Assessment and Plan: Prolonged INR likely contributes to occult blood in stool. I would be very cautious with anticoagulation given the occult blood in stool. Appropriate dosing of medicine ultimately encouraged. Subjective Date/time seen: 03/21/22 14:15 Patient alert but unable to give any history. No significant bleeding described. Status post CVA. Review of Systems Review of Systems: ROS unobtainable: Yes unobtainable due to mental status Exam Narrative: Vital signs stable. HEENT exam reveals no icterus. Lungs few rhonchi. Heart are regular. Abdomen soft no masses no organomegaly somewhat obese. Extremities without clubbing or edema. Objective Data Vital Signs Vital Signs: Vital Signs - 24 hr 03/20/22 16:00 03/20/22 16:00 03/20/22 16:00 Temperature 99.5 F Pulse Rate 91 95 Respiratory Rate 28 H Blood Pressure 113/63 Pulse Oximetry 93 93 Oxygen Delivery High Flow Nasal Cannula Oxygen Flow Rate 45 Fraction of Inspired Oxygen 45 03/20/22 16:42 03/20/22 16:46 03/20/22 16:50 Temperature Pulse Rate 95 90 95 Respiratory Rate 18 21 H 18 Blood Pressure Pulse Oximetry 94 Oxygen Delivery BiPAP Oxygen Flow Rate Fraction of Inspired Oxygen 03/20/22 18:00 03/20/22 18:00 03/20/22 22:45 Temperature 99.2 F Pulse Rate 90 92 107 H Respiratory Rate 21 H 22 H Blood Pressure 106/56 L Pulse Oximetry 93 Oxygen Delivery Oxygen Flow Rate Fraction of Inspired Oxygen 03/20/22 22:51 03/20/22 20:00 03/20/22 20:00 Temperature Pulse Rate 98 96 96 Respiratory Rate 24 H 22 H Blood Pressure Pulse Oximetry 96 96 Oxygen Delivery High Flow Therapy with Na High Flow Therapy with Na Oxygen Flow Rate 45 45 Fraction of Inspired Oxygen 60 50 03/20/22 23:06 03/20/22 22:00 03/20/22 22:00 Temperature 99.1 F Pulse Rate 102 H 99 99 Respiratory Rate 20 18 Blood Pressure 103/53 L Pulse Oximetry 100 Oxygen Delivery Oxygen Flow Rate Fraction of Inspired Oxygen 03/21/22 00:00 03/21/22 00:00 03/21/22 00:00 Temperature 98.7 F Pulse Rate 102 H 102 H 103 H Respiratory Rate 20 20 Blood Pressure 123/53 L Pulse Oximetry 96 93 Oxygen Delivery High Flow Therapy with Na Oxygen Flow Rate 45 Fraction of Inspired Oxygen 60 03/21/22 02:00 03/21/22 02:00 03/21/22 04:00 Temperature 98.4 F Pulse Rate 108 H 108 H 103 H Respiratory Rate 18 Blood Pressure 108/48 L Pulse Oximetry 93 Oxygen Delivery Oxygen Flow Rate Fraction of Inspired Oxygen 03/21/22 04:00 03/21/22 04:00 03/21/22 04:20 Temperature 98.7 F Pulse Rate 103 H 64 111 H Respiratory Rate 18 16 24 H Blood Pressure 117/60 Pulse Oximetry 92 93 Oxygen Delivery High Flow Therapy wit
--- NOTE | 2022-03-21 16:04 | PM.CNNEP ---
Assessment and Plan Assessment and plan (1) Acute renal failure: Qualifiers: Acute renal failure type: unspecified Qualified Code(s): N17.9 - Acute kidney failure, unspecified Code(s): N17.9 - Acute kidney failure, unspecified Status: Acute Assessment and Plan: the patient has had a normal creatinine for the [place] part back in October and earlier. Late inbJuly his creatinine went up to 1.5. That was during a hospitalization for volume Overload and I suspect back that he was on diuretics at the time. he was discharged with a creatinine of 1.8. Now the creatinine is 2 point 3 and he is volume overloaded. One possibility is that he has chronic pre renal azotemia. This would be on the basis of his bad right heart. He also was on diuretics to try to treat the if volume overload. He might have infection related to his exacerbation of COPD and is on antibiotics. Infection can also make the creatinine higher. Obstruction could do this. GN could do this as well. He does not have blood in the urine and his amount of protein is not huge so this would be less likely. Rhabdo could do this as well. Will check a CK. Will check CK, serology, immunofixation, urine electrolytes and a urine urea. I agree with diuresis. Even though he has a higher creatinine, it could be that his right-sided heart failure is causing increased renal venous hypertension causing the decrease in kidney function. So diuresis might actually help the kidneys. (2) Acute CVA (cerebrovascular accident): Code(s): I63.9 - Cerebral infarction, unspecified Status: Acute Assessment and Plan: He has an age-indeterminate stroke in his cerebellum which was not there in October. Perhaps this is why he fell. (3) Occult blood in stools: Code(s): R19.5 - Other fecal abnormalities Status: Acute Assessment and Plan: The patient has Hemoccult-positive stool. GI is on the case (4) Diabetes mellitus: Qualifiers: Diabetes mellitus type: type 2 Diabetes mellitus nursing home insulin use: without long term care pharmacist use Diabetes mellitus complication status: without complication Qualified Code(s): E11.9 - Type 2 diabetes mellitus without complications Code(s): E11.9 - Type 2 diabetes mellitus without complications Status: Acute Assessment and Plan: management per appeals nurse/hospitalist (5) Hyperlipidemia: Qualifiers: Hyperlipidemia type: unspecified Qualified Code(s): E78.5 - Hyperlipidemia, unspecified Code(s): E78.5 - Hyperlipidemia, unspecified Status: Acute Assessment and Plan: the patient is on atorvastatin (6) Essential hypertension: Code(s): I10 - Essential (primary) hypertension Status: Acute Assessment and Plan: blood pressure is well controlled. On a long-term basis his blood pressure is never very high. (7) Atrial fibrillation with rapid ventricular response: Code(s): I48.91 - Unspecified atrial fibrillation Status: Resolved Assessment and Plan: The patient has atrial fibrillation. His heart rate is fairly high. (8) COPD (chronic obstructive pulmonary disease): Code(s): J44.9 - Chronic obstructive pulmonary disease, unspecified Status: Acute Assessment and Plan: The patient has COPD. He has chronic hypercarbia and is compensated with a high serum bicarbonate. History of Present Illness Reason for Consult Consult date: 03/21/22 Chief Complaint Chief complaint: CVA,CHF,GIB w/anemia,Acute Resp Failur,elevatedINR History of Present Illness Narrative: Zack is a very pleasant 72-year-old gentleman who has multiple medical problems including COPD, paroxysmal atrial fibrillation, alcohol abuse, hyperlipidemia, chronic respiratory failure, coronary disease status post bypass, asbestosis, hypertension, and tobacco use. The patient was seen in the emergency room
--- NOTE | 2022-03-21 16:26 | PM.IMPN ---
Progress Note: A&P Assessment and Plan (1) Acute CVA (cerebrovascular accident): Code(s): I63.9 - Cerebral infarction, unspecified Status: Acute Assessment and Plan: acute cerebellar infarct patient on anticoagulation patient on statin patient on aspirin 03/21/2022 interval history: 72-year-old male with history chronic hypercarbic respiratory failure and hypoxic with supplemental oxygen presented with a right-sided weakness and altered mental status was found to have acute CVA, patient is chronically anticoagulated with concern of bleeding which is on hold, patient seen by neurologist recommended MRI and cardiac echo with bubble study further evaluation, patient cardiac echo is essentially normal and bubble study with agitated saline contrast did not show any intracardiac shunt, patient with hypercarbic respiratory failure secondary to COPD patient is being treated with methylprednisone, and bronchodilator, currently patient states feeling better compared to when he arrived, is seen by natural sciences manager (2) COPD (chronic obstructive pulmonary disease): Code(s): J44.9 - Chronic obstructive pulmonary disease, unspecified Status: Acute Assessment and Plan: does not appear to be exacerbated not actively wheezing continue breathing treatment (3) Ischemic cardiomyopathy: Code(s): I25.5 - Ischemic cardiomyopathy Status: Acute Assessment and Plan: continue home meds continue to monitor (4) CAD (coronary artery disease): Qualifiers: Associated angina: unspecified whether angina present Coronary Disease-Associated Artery/Lesion type: unspecified vessel or lesion type [place] vs. transplanted heart: unspecified whether [place] or transplanted heart Qualified Code(s): I25.10 - Atherosclerotic heart disease of [place] coronary artery without angina pectoris Code(s): I25.10 - Atherosclerotic heart disease of [place] coronary artery without angina pectoris Status: Acute Assessment and Plan: status post coronary artery bypass graft continue to monitor (5) Obesity hypoventilation syndrome: Code(s): E66.2 - Morbid (severe) obesity with alveolar hypoventilation Status: Acute Assessment and Plan: continue BiPAP (6) Sleep apnea: Code(s): G47.30 - Sleep apnea, unspecified Status: Acute Assessment and Plan: continue BiPAP (7) Alcohol abuse: Code(s): F10.10 - Alcohol abuse, uncomplicated Status: Acute Assessment and Plan: patient has been sober for many years according to record (8) Chronic hypercapnic respiratory failure: Code(s): J96.12 - Chronic respiratory failure with hypercapnia Status: Acute Assessment and Plan: patient is a chronic retainer of CO2 on supplemental oxygen at home Subjective Date/time seen: 03/21/22 16:26 03/21/2022 interval history: 72-year-old male with history chronic hypercarbic respiratory failure and hypoxic with supplemental oxygen presented with a right-sided weakness and altered mental status was found to have acute CVA, patient is chronically anticoagulated with concern of bleeding which is on hold, patient seen by neurologist recommended MRI and cardiac echo with bubble study further evaluation, patient cardiac echo is essentially normal and bubble study with agitated saline contrast did not show any intracardiac shunt, patient with hypercarbic respiratory failure secondary to COPD patient is being treated with methylprednisone, and bronchodilator, currently patient states feeling better compared to when he arrived, is seen by natural sciences manager Review of Systems Review of Systems: ROS unobtainable: Yes unobtainable due to mental status Exam Narrative: morbidly obese Patient is comfortable, NAD HEENT: eyes are clear and none icteric LUNGS: normal respiratory effort ABD: distended Lower extremities: no edema SKIN: nonjaundiced
--- NOTE | 2022-03-21 16:55 | PCSTNOTE ---
Please refer to the Bedside Swallow Evaluation in the EMR. Please note, silent aspiration cannot be ruled out at bedside.
[2022-03-21 17:40] LABS: Creatine Kinase 693 U/L (55-170)
[2022-03-21 17:48] LABS: Complement C3 89 mg/dL (88-165)
[2022-03-21 17:57] LABS: Erythrocyte Sedimentation Rate 55 mm/hr (0-20)
[2022-03-21 18:33] LABS: Creatinine Urine 69.7 mg/dL; Total Protein Urine Random 18 mg/dL; Ur Ttl Prot Creatinine Ratio 0.26 mg/mg (0-0.20)
[2022-03-21 18:34] LABS: Urea Random Urine 527 MG/DL
[2022-03-21 18:44] LABS: Sodium Urine Random 36 meq/L
[2022-03-21] MEDS: METOPROLOL TARTRATE 50 MG TAB PO (21:47)
[2022-03-21] MEDS: AMIODARONE 150 MG/D5W 100 ML 150 MG/100 ML BAG 600 MG IV CONT (21:47)
[2022-03-21] MEDS: QUEtiapine FUMARATE 25 MG TABLET PO (21:47)
[2022-03-22] VITALS (32 sets, daily range): BP systolic 112–156; BP diastolic 55–77; PULSE 84–134; RESP 20–34; TEMP 37.2–37.5; O2SAT 90–97
[2022-03-22] MEDS: IPRATROPIUM BR 0.02% INH SOLN 0.5 MG/2.5 ML VIAL INHALATION ×7 (04:10→23:31)
[2022-03-22] MEDS: ALBUTEROL SULFATE NEB 2.5 MG/3 ML INH 5 MG INHALATION ×7 (04:10→23:31)
[2022-03-22 05:08] LABS: Albumin Level 3.6 g/dL (3.5-5.1); Anion Gap 4 mmol/L (8-16); Blood Urea Nitrogen 51 mg/dL (9-20); Calcium 8.6 mg/dL (8.4-10.2); Carbon Dioxide 32 mmol/L (22-30); Chloride 108 mmol/L (98-107); Estimated CRCL calculation 37 ml/min; Estimated Glomerular Filt Rate 30; Glucose 191 mg/dL (65-110); Phosphorus 3.1 mg/dL (2.5-4.5); Potassium 4.7 mmol/L (3.4-5.0); Sodium 144 mmol/L (137-145)
[2022-03-22] MEDS: LEVOTHYROXINE SODIUM INJ 100 MCG/5 ML VIAL 25 MCG IV PUSH (05:58)
[2022-03-22 06:06] LABS: Alveolar/Arterial O2 Gradient 270.6 mmHg; Base Excess ABG 4.9 mEq/l (+/-2.0); Fractional Inspired Oxygen 55 %; HCO3 ABG 29.9 mEq/l (22.0-26.0); Oxygen Content ABG 10.7 %vol (16.0-22.0); Oxyhemoglobin 92.3 % THb (90.0-100.0); PCO2 ABG 47.2 mmHg (35.0-45.0); PO2 FiO2 Ratio Arterial Blood 1.25 %; Total Hemoglobin 8.2 g/dL (12.0-18.0)
[2022-03-22 06:07] LABS: Device NON-INVASIVE VENT; Modified Allen's Test Unable to perform; Non-Invasive Expiratory Pressure 8 CMH2O; Non-Invasive Inspiratory Pressure 18 CMH2O; Non-Invasive Vent Rate 20 /MIN; Site Drawn RIGHT RADIAL
[2022-03-22] MEDS: BUDESONIDE RESPULE NEB 0.5 MG/2 ML AMP INHALATION ×2 (07:16→21:02)
[2022-03-22] MEDS: PANTOPRAZOLE SODIUM IV 40 MG VIAL IV PUSH ×2 (08:10→22:09)
[2022-03-22] MEDS: AMIODARONE HCL 200 MG TABLET PO (08:16)
[2022-03-22] MEDS: ATORVASTATIN 40 MG TABLET 80 MG PO (08:16)
--- NOTE | 2022-03-22 09:55 | WPDINTPN ---
Progress Note: A&P Assessment and Plan (1) Acute CVA (cerebrovascular accident): Code(s): I63.9 - Cerebral infarction, unspecified Status: Acute Assessment and Plan: Patient presented with generalized weakness on 03/18/2022, brain CT on admission showed age indeterminate small right cerebellar infarct which is new since 10/16/2021, several unchanged small infarcts in the bilateral occipital lobes, left frontal lobe, left cerebral hemisphere and couple of small lacunar infarcts at the bilateral basal ganglia. Chronic age-related changes -CTA head and neck 03/18/2022: 80% stenosis of the proximal right internal carotid artery relative to normal distal artery lumen diameter (NASCET criteria).. 55% stenosis of the proximal left internal carotid artery relative to normal distal artery lumen diameter.? Severe stenosis of the left internal carotid artery extending into the cavernous segment of the aorta.:? Mild stenosis of the right internal carotid artery at the cavernous sinus. Evaluation is limited by significant motion artifact. Mild stenosis at the origin of both subclavian arteries. The ER physician had called Neurology had [facility], patient has been accepted awaiting bed -neurology consulted, recommended Lipitor 80 mg q.h.s., - echocardiogram with bubble study showed no shunting -patient had repeat bedside swallow evaluation by speech therapy done 03/21 and was started on modified diet -MRI once patient is more stable respiratory clay -not on any antiplatelet agent due to anemia and suspected blood loss (2) Acute on chronic respiratory failure with hypoxia and hypercapnia: Code(s): J96.21 - Acute and chronic respiratory failure with hypoxia; J96.22 - Acute and chronic respiratory failure with hypercapnia Status: Acute Assessment and Plan: Acute on chronic hypercapnic respiratory failure likely secondary to COPD exacerbation, CHF, stroke, pneumonia -patient could have felt weak because of hypercapnia, possible stroke, anemia -patient on BiPAP initially was and 25/11 which was switched to 29/11, repeat ABGs seem to be improving - 03/21 -patient has been switched to Vapotherm (high velocity), repeat ABGs much improved, continue patient on Vapotherm Patient was switched to BiPAP for increased work of breathing at night - 03/22 back on Vapotherm and maintaining saturation -continue bronchodilators, -continued Budesonide nebulizer -patient is wheezing and will start him again on a short course of off Solu-Medrol -continue ceftriaxone and azithromycin (03/19) -patient also has congestive heart failure and Lasix will be continued -respiratory status continues to be borderline. If he deteriorates he may need intubation and mechanical ventilation (3) COPD (chronic obstructive pulmonary disease): Code(s): J44.9 - Chronic obstructive pulmonary disease, unspecified Status: Acute Assessment and Plan: As above (4) Acute anemia: Code(s): D64.9 - Anemia, unspecified Status: Acute Assessment and Plan: Anemia likely related to GI bleed secondary to hypercoagulability state on rivaroxaban -INR was 7.9 on admission, improved to 3.7 - hold rivaroxaban for now -appreciate GI evaluation and recommendations no intervention at this time, continue to hold anticoagulation -continue PPI IV q.12 hours -no iron levels, low iron saturation, likely iron deficiency -vitamin B12 and folic acid levels are within normal limits -03/20: Hemoglobin dropped to 7.0, patient was transfused 1 unit of packed RBCs -hemoglobin has been essentially stable and will continue to monitor (5) Ischemic cardiomyopathy: Code(s): I25.5 - Ischemic cardiomyopathy Status: Acute Assessment and Plan: Ischemic cardiomyopathy with CHF -echocardiogram on 01/25/2022: Normal LV systolic function, mild concentric LVH, restrictive diastolic dysfunction grade 3-4, EF 68% Severe enlargement of RV, severe enlargemen
[2022-03-22] MEDS: methylPREDNISolone SOD SUCC 125 MG VIAL 60 MG IV PUSH (10:05)
[2022-03-22] MEDS: METOPROLOL TARTRATE 50 MG TAB PO ×2 (10:05→22:09)
[2022-03-22] MEDS: cefTRIAXone 2 GM in SODIUM CHLORIDE 0.9% IV 100 ML 200 ML IVPB (11:55)
--- NOTE | 2022-03-22 12:12 | PCFNICU ---
ICU Rounding Note: Pt current nutrition is Heart Healthy/Pureed, Level 4 with Mild Thick Liquids, Level 2. Last recorded weight is 110.7 kg. Bowel Motility:No Bm reported. Labs Reviewed:Glu 191, Cr 2.2,BUN 51, GFR 30 Meds Noted:Protonix,Synthroid, Atrovent, Lipitor, Zithromax Skin: WNL Additional Notes: Patient tolerating diet, eating 75% of meal. Speech Therapy is recommending MBS to rule out risk for aspiration. Following daily in ICU rounds.
--- NOTE | 2022-03-22 12:30 | WPDNEUROPN ---
Progress Note: A&P Assessment and Plan (1) Acute CVA (cerebrovascular accident): Code(s): I63.9 - Cerebral infarction, unspecified Status: Acute (2) Acute on chronic respiratory failure with hypoxia and hypercapnia: Code(s): J96.21 - Acute and chronic respiratory failure with hypoxia; J96.22 - Acute and chronic respiratory failure with hypercapnia Status: Acute (3) Supratherapeutic INR: Code(s): R79.1 - Abnormal coagulation profile Status: Acute (4) Acute gastrointestinal bleeding: Code(s): K92.2 - Gastrointestinal hemorrhage, unspecified Status: Acute (5) Atrial fibrillation: Code(s): I48.91 - Unspecified atrial fibrillation Status: Acute Plan Zack Dai is a 72 year old male with a history of atrial fibrillation, CHF, CAD, COPD, CKD who presented due to right sided weakness in the setting of supratherapeutic INR resulting in GI bleeding, complicated by respiratory failure. Concern for acute stroke given new focal findings of R sided weakness. Anticoagulation is currently being held due to GI bleeding. Will have to weigh risk/benefits of resuming anticoagulation for the purpose of stroke prevention. Choice of antithrombotic will also depend on distribution of stroke on MRI brain, since patient could have had infarct secondary to large vessel disease (in which case he would required DAPT with ASA and Plavix) or cardioembolic from atrial fibrillation (switching to Eliquis or warfarin). Surface echo was unrevealing. - Recommend MRI brain w/o contrast - Increased Lipitor to 80mg daily - ASA and Xarelto are currently being held Subjective Date/time seen: 03/22/22 12:30 Interval history: Zack Dai is a 72 year old male with a history of atrial fibrillation, CHF, CAD, COPD, CKD who presented initially due to weakness. Patient had not been himself, per his , for past few weeks. There were concerns about him hallucinating and being confused, as well as increased work of breathing. On the day of admission, patient was walking down stairs, but at some point became to weak to walk. noted that he was very weak on right side. He was taken to [facility] where he was notably flaccid on the right side. His NIH score was 12. CT head showed small R cerebral infarct (new since October 2021), but no acute changes. CTA showed 80% stenosis of proximal R ICA and 55% stenosis of proximal L ICA, as well as severe stenosis of the L ICA extending into cavernous segment of aorta and mild stenosis of R ICA at cavernous sinus. Case was discussed with [facility] stroke team. He could not receive tPA due to being on Xarelto. He was accepted for transfer to [facility] Neuro ICU, but currently no beds are available. Of note, patient's BP on arrival was 79/47. Hgb was 6.8 and INR 7.9. Patient had been having rectal bleeding. Apparently the Xarelto had been discontinued for unknown reason, but he did take doses on 03/16 and 03/17. Xarelto and aspirin are currently being held. He is currently on BiPAP for respiratory support. He had an echo done yesterday which was unrevealing. Review of Systems Review of Systems: ROS unobtainable: Yes unobtainable due to medical condition Exam Eyes: Pupils: Equal, round and reactive pupils present EOM: EOMs intact bilaterally Resp: Other: on BiPAP, increased WOB Cardio: Rate: regular rate GI: GI Palp: Yes Soft to palpation Skin: General skin exam: normal color Neuro: Other: AOx3, PERRL, EOMI, Face symmetric, RUE 4/5, LUE 5/5, RLE 4/5 and LLE 4/5. Sensation is intact bilaterally. Able to move all extremities spontaneously and follow commands. Speech is difficult to understand due to BiPAP, comprehension is somewhat intact Extrem: General: normal to inspection Psych: Mental Status: mental status grossly normal Objective Data Vital Signs Vital Signs: Vital Signs - 24 hr 03/21/22 14:00 03/21/22 14:00 03/21/22 15:35 Temperature Pulse Rate 126 H 120
--- NOTE | 2022-03-22 13:22 | PM.PNNEP ---
Progress Note: A&P Assessment and Plan (1) Acute renal failure: Qualifiers: Acute renal failure type: unspecified Qualified Code(s): N17.9 - Acute kidney failure, unspecified Code(s): N17.9 - Acute kidney failure, unspecified Status: Acute Assessment and Plan: the patient has had a normal creatinine for the most part back in October and earlier. Late in October his creatinine went up to 1.5. now he is in the low to mid 2s. He has TRACY. Urine urea nitrogen is 34%, technically pre renal. UA shows protein and bilirubin. No blood. It is a concentrated specimen. Quantitative urine protein to creatinine ratio was 260. CPK 693, elevated but not enough to cause kidney problems. Will repeat tomorrow. renal ultrasound unremarkable Etiology is probably multifactorial including pre renal azotemia, ATN from infection, and ATN from hypotension was present on admission. He also could have renal venous hypertension due to his pulmonary hypertension, however the latter is not severe so I think this is less likely. At this point he has volume overload and needs diuretics. Will start Bumex 2mg b.i.d. for now and see how he does. Discussed with Dr. Kelly (2) Acute CVA (cerebrovascular accident): Code(s): I63.9 - Cerebral infarction, unspecified Status: Acute Assessment and Plan: He has an age-indeterminate stroke in his cerebellum which was not there in October. Perhaps this is why he fell. neurology is on the case (3) Occult blood in stools: Code(s): R19.5 - Other fecal abnormalities Status: Acute Assessment and Plan: The patient has Hemoccult-positive stool. GI is on the case anticoagulants on hold (4) Diabetes mellitus: Qualifiers: Diabetes mellitus type: type 2 Diabetes mellitus fpc insulin use: without fpc use Diabetes mellitus complication status: without complication Qualified Code(s): E11.9 - Type 2 diabetes mellitus without complications Code(s): E11.9 - Type 2 diabetes mellitus without complications Status: Acute Assessment and Plan: management per sanitation engineer/hospitalist (5) Hyperlipidemia: Qualifiers: Hyperlipidemia type: unspecified Qualified Code(s): E78.5 - Hyperlipidemia, unspecified Code(s): E78.5 - Hyperlipidemia, unspecified Status: Acute Assessment and Plan: the patient is on atorvastatin (6) Essential hypertension: Code(s): I10 - Essential (primary) hypertension Status: Acute Assessment and Plan: blood pressure is well controlled. he is off his antihypertensives (7) Atrial fibrillation with rapid ventricular response: Code(s): I48.91 - Unspecified atrial fibrillation Status: Resolved Assessment and Plan: The patient has atrial fibrillation. His heart rate is fairly high. (8) COPD (chronic obstructive pulmonary disease): Code(s): J44.9 - Chronic obstructive pulmonary disease, unspecified Status: Acute Assessment and Plan: The patient has COPD. He has chronic hypercarbia and is compensated with a high serum bicarbonate. Subjective Date/time seen: 03/22/22 13:22 Interval history: Zack looks about the same. He appears somewhat short of breath. He is on high flow oxygen and is getting a breathing treatment. He denies shortness of breath. No pain Review of Systems Cardiovascular: Cardiovascular: Reports no additional cardiovascular complaints Respiratory: Respiratory: Reports no additional respiratory complaints Gastrointestinal: Gastrointestinal: Reports no additional gastrointestinal complaints Genitourinary: Genitourinary: Reports no additional male genitourinary complaints Exam Narrative: WDWN in NAD skin no rash head ncat lungs coarse bilaterally with upper airway noise. cor irreg no rub, somewhat fast heart abd BS+ nontender and soft ext 1+
--- NOTE | 2022-03-22 17:21 | PM.IMPN ---
Progress Note: A&P Assessment and Plan (1) Acute CVA (cerebrovascular accident): Code(s): I63.9 - Cerebral infarction, unspecified Status: Acute Assessment and Plan: acute cerebellar infarct patient on anticoagulation patient on statin patient on aspirin 03/22/2022 interval history: 72-year-old male with history chronic hypercarbic respiratory failure and hypoxic with supplemental oxygen presented with a right-sided weakness and altered mental status was found to have acute CVA, patient is chronically anticoagulated with concern of bleeding which is on hold, patient seen by neurologist recommended MRI and cardiac echo with bubble study further evaluation, patient cardiac echo is essentially normal and bubble study with agitated saline contrast did not show any intracardiac shunt, patient with hypercarbic respiratory failure secondary to COPD patient is being treated with methylprednisone, and bronchodilator, currently patient is on BIPAP is seen by fuel cell designer and neurologist. (2) COPD (chronic obstructive pulmonary disease): Code(s): J44.9 - Chronic obstructive pulmonary disease, unspecified Status: Acute Assessment and Plan: does not appear to be exacerbated not actively wheezing continue breathing treatment (3) Ischemic cardiomyopathy: Code(s): I25.5 - Ischemic cardiomyopathy Status: Acute Assessment and Plan: continue home meds continue to monitor (4) CAD (coronary artery disease): Qualifiers: Coronary Disease-Associated Artery/Lesion type: unspecified vessel or lesion type [place] vs. transplanted heart: unspecified whether [place] or transplanted heart Associated angina: unspecified whether angina present Qualified Code(s): I25.10 - Atherosclerotic heart disease of [place] coronary artery without angina pectoris Code(s): I25.10 - Atherosclerotic heart disease of [place] coronary artery without angina pectoris Status: Acute Assessment and Plan: status post coronary artery bypass graft continue to monitor (5) Obesity hypoventilation syndrome: Code(s): E66.2 - Morbid (severe) obesity with alveolar hypoventilation Status: Acute Assessment and Plan: continue BiPAP (6) Sleep apnea: Code(s): G47.30 - Sleep apnea, unspecified Status: Acute Assessment and Plan: continue BiPAP (7) Alcohol abuse: Code(s): F10.10 - Alcohol abuse, uncomplicated Status: Acute Assessment and Plan: patient has been sober for many years according to record (8) Chronic hypercapnic respiratory failure: Code(s): J96.12 - Chronic respiratory failure with hypercapnia Status: Acute Assessment and Plan: patient is a chronic retainer of CO2 on supplemental oxygen at home Subjective Date/time seen: 03/22/22 17:21 03/22/2022 interval history: 72-year-old male with history chronic hypercarbic respiratory failure and hypoxic with supplemental oxygen presented with a right-sided weakness and altered mental status was found to have acute CVA, patient is chronically anticoagulated with concern of bleeding which is on hold, patient seen by neurologist recommended MRI and cardiac echo with bubble study further evaluation, patient cardiac echo is essentially normal and bubble study with agitated saline contrast did not show any intracardiac shunt, patient with hypercarbic respiratory failure secondary to COPD patient is being treated with methylprednisone, and bronchodilator, currently patient is on BIPAP is seen by fuel cell designer and neurologist. Review of Systems Review of Systems: ROS unobtainable: Yes unobtainable due to medical condition Exam Narrative: morbidly obese Patient is comfortable, NAD HEENT: eyes are clear and none icteric LUNGS: normal respiratory effort ABD: distended Lower extremities: no edema SKIN: nonjaundiced Neuro: grossly intact. Objective D
[2022-03-22] MEDS: QUEtiapine FUMARATE 25 MG TABLET PO (22:09)
[2022-03-23] VITALS (29 sets, daily range): BP systolic 101–132; BP diastolic 55–75; PULSE 87–126; RESP 18–27; TEMP 36.9–37.4; O2SAT 90–97
[2022-03-23] MEDS: ALBUTEROL SULFATE NEB 2.5 MG/3 ML INH 5 MG INHALATION ×4 (03:15→20:26)
[2022-03-23] MEDS: IPRATROPIUM BR 0.02% INH SOLN 0.5 MG/2.5 ML VIAL INHALATION ×4 (03:15→20:26)
[2022-03-23] MEDS: LEVOTHYROXINE SODIUM INJ 100 MCG/5 ML VIAL 25 MCG IV PUSH (06:34)
[2022-03-23 06:49] LABS: Hematocrit 27.9 % (42.0-52.0); Mean Corpuscular HGB Conc 28.7 g/dl (32-36); Mean Corpuscular Hemoglobin 22.9 pg (26-34); Mean Corpuscular Volume 79.7 fl (80-100); Mean Platelet Volume 9.3 fl (7.4-10.4); Platelet Count Result 406 k/mm3 (150-375); Red Cell Distribution Width 22.1 % (11.5-14.5); White Blood Count 10.4 K/mm3 (4.5-10.0)
[2022-03-23 07:24] LABS: Anion Gap 3 mmol/L (8-16); Blood Urea Nitrogen 42 mg/dL (9-20); Calcium 8.6 mg/dL (8.4-10.2); Carbon Dioxide 33 mmol/L (22-30); Chloride 112 mmol/L (98-107); Estimated CRCL calculation 46 ml/min; Estimated Glomerular Filt Rate 40; Glucose 193 mg/dL (65-110); Potassium 4.5 mmol/L (3.4-5.0); Sodium 148 mmol/L (137-145)
[2022-03-23 07:29] LABS: NT Pro B Type Natriuretic Pept 8310 pg/mL (5-100)
[2022-03-23] MEDS: methylPREDNISolone SOD SUCC 125 MG VIAL 60 MG IV PUSH (08:45)
[2022-03-23] MEDS: AMIODARONE HCL 200 MG TABLET PO (08:45)
[2022-03-23] MEDS: METOPROLOL TARTRATE 50 MG TAB PO ×2 (08:45→20:03)
[2022-03-23] MEDS: PANTOPRAZOLE SODIUM IV 40 MG VIAL IV PUSH ×2 (08:45→20:02)
[2022-03-23] MEDS: ATORVASTATIN 40 MG TABLET 80 MG PO (08:45)
[2022-03-23] MEDS: BUDESONIDE RESPULE NEB 0.5 MG/2 ML AMP INHALATION ×2 (09:15→20:31)
[2022-03-23] MEDS: FUROSEMIDE INJ 40 MG/4 ML VIAL IV PUSH (09:54)
--- NOTE | 2022-03-23 10:25 | WPDINTPN ---
Progress Note: A&P Assessment and Plan (1) Acute on chronic respiratory failure with hypoxia and hypercapnia: Code(s): J96.21 - Acute and chronic respiratory failure with hypoxia; J96.22 - Acute and chronic respiratory failure with hypercapnia Status: Acute Assessment and Plan: Acute on chronic hypercapnic respiratory failure likely secondary to COPD exacerbation, CHF, stroke, pneumonia -patient could have felt weak because of hypercapnia, possible stroke, anemia -patient on BiPAP initially was and 25/11 which was switched to 29/11, repeat ABGs seem to be improving - 03/21 -patient has been switched to Vapotherm (high velocity), repeat ABGs much improved, continue patient on Vapotherm Patient was switched to BiPAP for increased work of breathing at night - 03/22 back on Vapotherm and maintaining saturation - 03/23 wore BiPAP overnight and now is going to be transition to Vapotherm. Will continue trying to use Vapotherm during the day and BiPAP at night He remains at risk of requiring intubation -continue bronchodilators, -continued Budesonide nebulizer -continue short course of off Solu-Medrol -continue ceftriaxone and azithromycin (03/19) -patient also has congestive heart failure and Lasix will be continued -respiratory status continues to be borderline. If he deteriorates he may need intubation and mechanical ventilation (2) Acute CVA (cerebrovascular accident): Code(s): I63.9 - Cerebral infarction, unspecified Status: Acute Assessment and Plan: Patient presented with generalized weakness on 03/18/2022, brain CT on admission showed age indeterminate small right cerebellar infarct which is new since 10/16/2021, several unchanged small infarcts in the bilateral occipital lobes, left frontal lobe, left cerebral hemisphere and couple of small lacunar infarcts at the bilateral basal ganglia. Chronic age-related changes -CTA head and neck 03/18/2022: 80% stenosis of the proximal right internal carotid artery relative to normal distal artery lumen diameter (NASCET criteria).. 55% stenosis of the proximal left internal carotid artery relative to normal distal artery lumen diameter.? Severe stenosis of the left internal carotid artery extending into the cavernous segment of the aorta.:? Mild stenosis of the right internal carotid artery at the cavernous sinus. Evaluation is limited by significant motion artifact. Mild stenosis at the origin of both subclavian arteries. The ER physician had called Neurology had [facility], patient has been accepted awaiting bed -neurology consulted, recommended Lipitor 80 mg q.h.s., - echocardiogram with bubble study showed no shunting -patient had repeat bedside swallow evaluation by speech therapy done 03/21 and was started on modified diet -MRI once patient is more stable respiratory clay -he has not been on any antiplatelet agent due to anemia and suspected blood loss. His hemoglobin has been stable. I will start aspirin (3) COPD (chronic obstructive pulmonary disease): Code(s): J44.9 - Chronic obstructive pulmonary disease, unspecified Status: Acute Assessment and Plan: As above (4) Acute anemia: Code(s): D64.9 - Anemia, unspecified Status: Acute Assessment and Plan: Anemia likely related to GI bleed secondary to hypercoagulability state on rivaroxaban -INR was 7.9 on admission, improved to 3.7 - hold rivaroxaban for now -appreciate GI evaluation and recommendations no intervention at this time, continue to hold anticoagulation -continue PPI IV q.12 hours -no iron levels, low iron saturation, likely iron deficiency -vitamin B12 and folic acid levels are within normal limits -03/20: Hemoglobin dropped to 7.0, patient was transfused 1 unit of packed RBCs -hemoglobin has been essentially stable and will continue to monitor -resume aspirin (5) Ischemic cardiomyopathy: Code(s): I25.5 - Ischemic cardiomyopathy Status: Acute
[2022-03-23] MEDS: cefTRIAXone 2 GM in SODIUM CHLORIDE 0.9% IV 100 ML 200 ML IVPB (11:45)
[2022-03-23] MEDS: ASPIRIN 81 MG ENTERIC TABLET PO (11:46)
--- NOTE | 2022-03-23 11:55 | PM.PNNEP ---
Progress Note: A&P Assessment and Plan (1) Acute renal failure: Qualifiers: Acute renal failure type: unspecified Qualified Code(s): N17.9 - Acute kidney failure, unspecified Code(s): N17.9 - Acute kidney failure, unspecified Status: Acute Assessment and Plan: the patient has had a normal creatinine for the most part back in October and earlier. Late in October his creatinine went up to 1.5. now he is in the low to mid 2s. He has TRACY. Urine urea nitrogen is 34%, technically pre renal. UA shows protein and bilirubin. No blood. It is a concentrated specimen. Quantitative urine protein to creatinine ratio was 260. CPK 693, elevated but not enough to cause kidney problems. Will repeat tomorrow. renal ultrasound unremarkable Etiology is probably multifactorial including pre renal azotemia, ATN from infection, and ATN from hypotension was present on admission. He also could have renal venous hypertension due to his pulmonary hypertension, however the latter is not severe so I think this is less likely. His creatinine has improved. He received some Lasix this morning by Dr. Kelly will see how he responds to this. Will check another creatinine in the morning. Then reassess dosage. (2) Acute CVA (cerebrovascular accident): Code(s): I63.9 - Cerebral infarction, unspecified Status: Acute Assessment and Plan: He has an age-indeterminate stroke in his cerebellum which was not there in October. Perhaps this is why he fell. neurology is on the case (3) Occult blood in stools: Code(s): R19.5 - Other fecal abnormalities Status: Acute Assessment and Plan: The patient has Hemoccult-positive stool. GI is on the case anticoagulants on hold (4) Diabetes mellitus: Qualifiers: Diabetes mellitus type: type 2 Diabetes mellitus commercial production editor insulin use: without commercial production editor use Diabetes mellitus complication status: without complication Qualified Code(s): E11.9 - Type 2 diabetes mellitus without complications Code(s): E11.9 - Type 2 diabetes mellitus without complications Status: Acute Assessment and Plan: management per social worker/hospitalist (5) Hyperlipidemia: Qualifiers: Hyperlipidemia type: unspecified Qualified Code(s): E78.5 - Hyperlipidemia, unspecified Code(s): E78.5 - Hyperlipidemia, unspecified Status: Acute Assessment and Plan: the patient is on atorvastatin (6) Essential hypertension: Code(s): I10 - Essential (primary) hypertension Status: Acute Assessment and Plan: blood pressure is well controlled. he is off his antihypertensives (7) Atrial fibrillation with rapid ventricular response: Code(s): I48.91 - Unspecified atrial fibrillation Status: Resolved Assessment and Plan: The patient has atrial fibrillation. His heart rate is fairly high. (8) COPD (chronic obstructive pulmonary disease): Code(s): J44.9 - Chronic obstructive pulmonary disease, unspecified Status: Acute Assessment and Plan: The patient has COPD. He has chronic hypercarbia and is compensated with a high serum bicarbonate. Subjective Date/time seen: 03/23/22 11:55 Interval history: Zack looks about the same. He appears somewhat short of breath. He is on high flow oxygen and is getting a breathing treatment. He denies shortness of breath. No pain 03/23 Patient is on the noninvasive ventilator and comfortable. he does still have some swelling and shortness of breath. Exam Narrative: WDWN in NAD skin no rash head ncat lungs coarse bilaterally with upper airway noise. cor irreg no rub, somewhat fast heart abd BS+ nontender and soft ext 1+ edema. Objective Data Vital Signs Vital Signs: Vital Signs - 24 hr 03/22/22 12:00 03/22/22 15:57 03/22/22 15:50 Temperature 99.4 F Pulse Rate 117 H 105 H 10
--- NOTE | 2022-03-23 16:43 | PM.IMPN ---
Progress Note: A&P Assessment and Plan (1) Acute CVA (cerebrovascular accident): Code(s): I63.9 - Cerebral infarction, unspecified Status: Acute Assessment and Plan: acute cerebellar infarct patient on anticoagulation patient on statin patient on aspirin 03/23/2022 interval history: 72-year-old male with history chronic hypercarbic respiratory failure and hypoxic with supplemental oxygen presented with a right-sided weakness and altered mental status was found to have acute CVA, patient is chronically anticoagulated with concern of bleeding which is on hold, patient seen by neurologist recommended MRI and cardiac echo with bubble study further evaluation, patient cardiac echo is essentially normal and bubble study with agitated saline contrast did not show any intracardiac shunt, patient with hypercarbic respiratory failure secondary to COPD patient is being treated with methylprednisone, and bronchodilator, currently patient is off BIPAP, was able to feed himself and able to communicate, is seen by surgical processor and neurologist and appreciate (2) COPD (chronic obstructive pulmonary disease): Code(s): J44.9 - Chronic obstructive pulmonary disease, unspecified Status: Acute Assessment and Plan: does not appear to be exacerbated not actively wheezing continue breathing treatment (3) Ischemic cardiomyopathy: Code(s): I25.5 - Ischemic cardiomyopathy Status: Acute Assessment and Plan: continue home meds continue to monitor (4) CAD (coronary artery disease): Qualifiers: Coronary Disease-Associated Artery/Lesion type: unspecified vessel or lesion type [place] vs. transplanted heart: unspecified whether [place] or transplanted heart Associated angina: unspecified whether angina present Qualified Code(s): I25.10 - Atherosclerotic heart disease of [place] coronary artery without angina pectoris Code(s): I25.10 - Atherosclerotic heart disease of [place] coronary artery without angina pectoris Status: Acute Assessment and Plan: status post coronary artery bypass graft continue to monitor (5) Obesity hypoventilation syndrome: Code(s): E66.2 - Morbid (severe) obesity with alveolar hypoventilation Status: Acute Assessment and Plan: continue BiPAP (6) Sleep apnea: Code(s): G47.30 - Sleep apnea, unspecified Status: Acute Assessment and Plan: continue BiPAP (7) Alcohol abuse: Code(s): F10.10 - Alcohol abuse, uncomplicated Status: Acute Assessment and Plan: patient has been sober for many years according to record (8) Chronic hypercapnic respiratory failure: Code(s): J96.12 - Chronic respiratory failure with hypercapnia Status: Acute Assessment and Plan: patient is a chronic retainer of CO2 on supplemental oxygen at home Subjective Date/time seen: 03/23/22 16:43 03/23/2022 interval history: 72-year-old male with history chronic hypercarbic respiratory failure and hypoxic with supplemental oxygen presented with a right-sided weakness and altered mental status was found to have acute CVA, patient is chronically anticoagulated with concern of bleeding which is on hold, patient seen by neurologist recommended MRI and cardiac echo with bubble study further evaluation, patient cardiac echo is essentially normal and bubble study with agitated saline contrast did not show any intracardiac shunt, patient with hypercarbic respiratory failure secondary to COPD patient is being treated with methylprednisone, and bronchodilator, currently patient is off BIPAP, was able to feed himself and able to communicate, is seen by surgical processor and neurologist and appreciate Review of Systems Review of Systems: ROS unobtainable: Yes unobtainable due to medical condition Exam Narrative: morbidly obese Patient is comfortable, NAD HEENT: eyes are clear and none icteric DENISE
[2022-03-23] MEDS: QUEtiapine FUMARATE 25 MG TABLET PO (20:03)
[2022-03-24] VITALS (29 sets, daily range): BP systolic 109–151; BP diastolic 59–93; PULSE 91–137; RESP 17–29; TEMP 36.6–37.2; O2SAT 90–100
[2022-03-24 05:05] LABS: Hematocrit 28.7 % (42.0-52.0); Hemoglobin 8.1 g/dL (14.0-18.0); Mean Corpuscular HGB Conc 28.2 g/dl (32-36); Mean Corpuscular Hemoglobin 22.4 pg (26-34); Mean Corpuscular Volume 79.3 fl (80-100); Platelet Count Result 414 k/mm3 (150-375); Red Blood Count 3.62 M/mm3 (4.6-6.20); White Blood Count 12.5 K/mm3 (4.5-10.0)
[2022-03-24 05:21] LABS: Alanine Aminotransferase 54 U/L (6-50); Albumin Level 3.7 g/dL (3.5-5.1); Alkaline Phosphatase 91 U/L (38-126); Anion Gap 3 mmol/L (8-16); Aspartate Amino Transferase 58 U/L (17-59); Bilirubin,Total 0.6 mg/dL (0.2-1.3); Blood Urea Nitrogen 39 mg/dL (9-20); Calcium 8.5 mg/dL (8.4-10.2); Carbon Dioxide 35 mmol/L (22-30); Chloride 105 mmol/L (98-107); Estimated CRCL calculation 55 ml/min; Estimated Glomerular Filt Rate 50; Glucose 205 mg/dL (65-110); Magnesium 2.8 mg/dL (1.6-2.3); Potassium 4.2 mmol/L (3.4-5.0); Sodium 143 mmol/L (137-145)
[2022-03-24] MEDS: LEVOTHYROXINE SODIUM INJ 100 MCG/5 ML VIAL 25 MCG IV PUSH (06:18)
[2022-03-24] MEDS: BUDESONIDE RESPULE NEB 0.5 MG/2 ML AMP INHALATION ×2 (07:59→20:45)
[2022-03-24] MEDS: ALBUTEROL SULFATE NEB 2.5 MG/3 ML INH 5 MG INHALATION ×4 (07:59→20:45)
[2022-03-24] MEDS: IPRATROPIUM BR 0.02% INH SOLN 0.5 MG/2.5 ML VIAL INHALATION ×4 (07:59→20:45)
[2022-03-24] MEDS: PANTOPRAZOLE SODIUM IV 40 MG VIAL IV PUSH ×2 (09:11→20:11)
[2022-03-24] MEDS: methylPREDNISolone SOD SUCC 125 MG VIAL 60 MG IV PUSH (09:11)
[2022-03-24] MEDS: FUROSEMIDE INJ 40 MG/4 ML VIAL IV PUSH ×2 (09:12→20:10)
[2022-03-24] MEDS: METOPROLOL TARTRATE 50 MG TAB PO ×2 (09:12→20:11)
[2022-03-24] MEDS: ATORVASTATIN 40 MG TABLET 80 MG PO (09:12)
[2022-03-24] MEDS: ASPIRIN 81 MG ENTERIC TABLET PO (09:12)
[2022-03-24] MEDS: AMIODARONE HCL 200 MG TABLET PO (09:12)
--- NOTE | 2022-03-24 09:41 | PCSTNOTE ---
Attempted to see for tx in the morning, nursing reported patient was not tolerating weaning from BiPap at this time. Continue plan of care.
--- NOTE | 2022-03-24 10:41 | WPDINTPN ---
Progress Note: A&P Assessment and Plan (1) Acute on chronic respiratory failure with hypoxia and hypercapnia: Code(s): J96.21 - Acute and chronic respiratory failure with hypoxia; J96.22 - Acute and chronic respiratory failure with hypercapnia Status: Acute Assessment and Plan: Acute on chronic hypercapnic respiratory failure likely secondary to COPD exacerbation, CHF, stroke, pneumonia -patient could have felt weak because of hypercapnia, possible stroke, anemia -patient on BiPAP initially was and 25/11 which was switched to 29/11, repeat ABGs seem to be improving - 03/21 -patient has been switched to Vapotherm (high velocity), repeat ABGs much improved, continue patient on Vapotherm Patient was switched to BiPAP for increased work of breathing at night - 03/22 back on Vapotherm and maintaining saturation - 03/23 wore BiPAP overnight and now is going to be transition to Vapotherm. Will continue trying to use Vapotherm during the day and BiPAP at night - 03/24 continue BiPAP at night/prn and Vapotherm during the day He remains at risk of requiring intubation -continue bronchodilators, -continued Budesonide nebulizer -continue short course of off Solu-Medrol -continue ceftriaxone and azithromycin (03/19) for a 7 day course -patient also has congestive heart failure and Lasix will be continued. I will increase the dosing to b.i.d. for discussion with Nephrology -respiratory status continues to be borderline. If he deteriorates he may need intubation and mechanical ventilation (2) Acute CVA (cerebrovascular accident): Code(s): I63.9 - Cerebral infarction, unspecified Status: Acute Assessment and Plan: Patient presented with generalized weakness on 03/18/2022, brain CT on admission showed age indeterminate small right cerebellar infarct which is new since 10/16/2021, several unchanged small infarcts in the bilateral occipital lobes, left frontal lobe, left cerebral hemisphere and couple of small lacunar infarcts at the bilateral basal ganglia. Chronic age-related changes -CTA head and neck 03/18/2022: 80% stenosis of the proximal right internal carotid artery relative to normal distal artery lumen diameter (NASCET criteria).. 55% stenosis of the proximal left internal carotid artery relative to normal distal artery lumen diameter.? Severe stenosis of the left internal carotid artery extending into the cavernous segment of the aorta.:? Mild stenosis of the right internal carotid artery at the cavernous sinus. Evaluation is limited by significant motion artifact. Mild stenosis at the origin of both subclavian arteries. The ER physician had called Neurology had [facility], patient has been accepted awaiting bed -neurology consulted, recommended Lipitor 80 mg q.h.s., - echocardiogram with bubble study showed no shunting -patient had repeat bedside swallow evaluation by speech therapy done 03/21 and was started on modified diet -MRI once patient is more stable respiratory clay -he has not been on any antiplatelet agent due to anemia and suspected blood loss. His hemoglobin has been stable. Continue aspirin (3) COPD (chronic obstructive pulmonary disease): Code(s): J44.9 - Chronic obstructive pulmonary disease, unspecified Status: Acute Assessment and Plan: As above (4) Acute anemia: Code(s): D64.9 - Anemia, unspecified Status: Acute Assessment and Plan: Anemia likely related to GI bleed secondary to hypercoagulability state on rivaroxaban -INR was 7.9 on admission, improved to 3.7 - hold rivaroxaban for now -appreciate GI evaluation and recommendations no intervention at this time, continue to hold anticoagulation -continue PPI IV q.12 hours -no iron levels, low iron saturation, likely iron deficiency -vitamin B12 and folic acid levels are within normal limits -03/20: Hemoglobin dropped to 7.0, patient was transfused 1 unit of packed RBCs -hemoglobin has been essentially stable
--- NOTE | 2022-03-24 10:48 | PM.PNNEP ---
Progress Note: A&P Assessment and Plan (1) Acute renal failure: Qualifiers: Acute renal failure type: unspecified Qualified Code(s): N17.9 - Acute kidney failure, unspecified Code(s): N17.9 - Acute kidney failure, unspecified Status: Acute Assessment and Plan: the patient has had a normal creatinine for the most part back in October and earlier. Late in October his creatinine went up to 1.5. now he is in the low to mid 2s. He has TRACY. Urine urea nitrogen is 34%, technically pre renal. UA shows protein and bilirubin. No blood. It is a concentrated specimen. Quantitative urine protein to creatinine ratio was 260. CPK 693, elevated but not enough to cause kidney problems. Will repeat tomorrow. renal ultrasound unremarkable Etiology is probably multifactorial including pre renal azotemia, ATN from infection, and ATN from hypotension was present on admission. He also could have renal venous hypertension due to his pulmonary hypertension, however the latter is not severe so I think this is less likely. His creatinine has improved. it is now down to 1.4. Lasix has been increased to b.i.d.. (2) Acute CVA (cerebrovascular accident): Code(s): I63.9 - Cerebral infarction, unspecified Status: Acute Assessment and Plan: He has an age-indeterminate stroke in his cerebellum which was not there in October. Perhaps this is why he fell. neurology is on the case (3) Occult blood in stools: Code(s): R19.5 - Other fecal abnormalities Status: Acute Assessment and Plan: The patient has Hemoccult-positive stool. GI is on the case anticoagulants on hold (4) Diabetes mellitus: Qualifiers: Diabetes mellitus type: type 2 Diabetes mellitus manager intermediate insulin use: without usp use Diabetes mellitus complication status: without complication Qualified Code(s): E11.9 - Type 2 diabetes mellitus without complications Code(s): E11.9 - Type 2 diabetes mellitus without complications Status: Acute Assessment and Plan: management per cyberathlete/hospitalist (5) Hyperlipidemia: Qualifiers: Hyperlipidemia type: unspecified Qualified Code(s): E78.5 - Hyperlipidemia, unspecified Code(s): E78.5 - Hyperlipidemia, unspecified Status: Acute Assessment and Plan: the patient is on atorvastatin (6) Essential hypertension: Code(s): I10 - Essential (primary) hypertension Status: Acute Assessment and Plan: Systolic running 120-140 his anti hypertensives are being folded back in. He is now on losartan 25 in metoprolol. (7) Atrial fibrillation with rapid ventricular response: Code(s): I48.91 - Unspecified atrial fibrillation Status: Resolved Assessment and Plan: The patient has atrial fibrillation. His heart rate is fairly high. (8) COPD (chronic obstructive pulmonary disease): Code(s): J44.9 - Chronic obstructive pulmonary disease, unspecified Status: Acute Assessment and Plan: The patient has COPD. He has chronic hypercarbia and is compensated with a high serum bicarbonate. Subjective Date/time seen: 03/24/22 10:48 Interval history: Zack looks about the same. He appears somewhat short of breath. He is on high flow oxygen and is getting a breathing treatment. He denies shortness of breath. No pain 03/23 Patient is on the noninvasive ventilator and comfortable. he does still have some swelling and shortness of breath. 03/24 Patient is on Noninvasive vent. Breathing comfortably. Still some swelling Exam Narrative: WDWN in NAD skin no rash head ncat lungs coarse bilaterally with upper airway noise. cor irreg no rub, somewhat fast heart abd BS+ nontender and soft ext 1-2+ edema. Objective Data Vital Signs Vital Signs: Vital Signs - 24 hr 03/23/22 12:00 03/23/22 12:00 03/23/22 12:00 T
[2022-03-24] MEDS: cefTRIAXone 2 GM in SODIUM CHLORIDE 0.9% IV 100 ML 200 ML IVPB (11:30)
--- NOTE | 2022-03-24 15:56 | PM.IMPN ---
Progress Note: A&P Assessment and Plan (1) Acute CVA (cerebrovascular accident): Code(s): I63.9 - Cerebral infarction, unspecified Status: Acute Assessment and Plan: acute cerebellar infarct patient on anticoagulation patient on statin patient on aspirin 03/24/2022 interval history: 72-year-old male with history chronic hypercarbic respiratory failure and hypoxic with supplemental oxygen presented with a right-sided weakness and altered mental status was found to have acute CVA, patient is chronically anticoagulated with concern of bleeding which is on hold, patient seen by neurologist recommended MRI and cardiac echo with bubble study further evaluation, patient cardiac echo is essentially normal and bubble study with agitated saline contrast did not show any intracardiac shunt, patient with hypercarbic respiratory failure secondary to COPD currently on BiPAP patient is being treated with methylprednisone, and bronchodilator, currently, was able to feed himself and able to communicate, is seen by dba and neurologist and appreciate (2) COPD (chronic obstructive pulmonary disease): Code(s): J44.9 - Chronic obstructive pulmonary disease, unspecified Status: Acute Assessment and Plan: does not appear to be exacerbated not actively wheezing continue breathing treatment (3) Ischemic cardiomyopathy: Code(s): I25.5 - Ischemic cardiomyopathy Status: Acute Assessment and Plan: continue home meds continue to monitor (4) CAD (coronary artery disease): Qualifiers: Coronary Disease-Associated Artery/Lesion type: unspecified vessel or lesion type [place] vs. transplanted heart: unspecified whether [place] or transplanted heart Associated angina: unspecified whether angina present Qualified Code(s): I25.10 - Atherosclerotic heart disease of [place] coronary artery without angina pectoris Code(s): I25.10 - Atherosclerotic heart disease of [place] coronary artery without angina pectoris Status: Acute Assessment and Plan: status post coronary artery bypass graft continue to monitor (5) Obesity hypoventilation syndrome: Code(s): E66.2 - Morbid (severe) obesity with alveolar hypoventilation Status: Acute Assessment and Plan: continue BiPAP (6) Sleep apnea: Code(s): G47.30 - Sleep apnea, unspecified Status: Acute Assessment and Plan: continue BiPAP (7) Alcohol abuse: Code(s): F10.10 - Alcohol abuse, uncomplicated Status: Acute Assessment and Plan: patient has been sober for many years according to record (8) Chronic hypercapnic respiratory failure: Code(s): J96.12 - Chronic respiratory failure with hypercapnia Status: Acute Assessment and Plan: patient is a chronic retainer of CO2 on supplemental oxygen at home Subjective Date/time seen: 03/24/22 15:56 03/24/2022 interval history: 72-year-old male with history chronic hypercarbic respiratory failure and hypoxic with supplemental oxygen presented with a right-sided weakness and altered mental status was found to have acute CVA, patient is chronically anticoagulated with concern of bleeding which is on hold, patient seen by neurologist recommended MRI and cardiac echo with bubble study further evaluation, patient cardiac echo is essentially normal and bubble study with agitated saline contrast did not show any intracardiac shunt, patient with hypercarbic respiratory failure secondary to COPD currently on BiPAP patient is being treated with methylprednisone, and bronchodilator, currently, was able to feed himself and able to communicate, is seen by dba and neurologist and appreciate Review of Systems Review of Systems: ROS unobtainable: Yes unobtainable due to medical condition Exam Narrative: morbidly obese Patient is comfortable, NAD HEENT: eyes are clear and none icteric LUNGS: no
[2022-03-24] MEDS: QUEtiapine FUMARATE 25 MG TABLET PO (20:11)
[2022-03-25] VITALS (31 sets, daily range): BP systolic 103–149; BP diastolic 63–86; PULSE 81–125; RESP 17–25; TEMP 36.6–37.1; O2SAT 93–97
[2022-03-25] MEDS: ALBUTEROL SULFATE NEB 2.5 MG/3 ML INH 5 MG INHALATION ×6 (00:04→21:51)
[2022-03-25] MEDS: IPRATROPIUM BR 0.02% INH SOLN 0.5 MG/2.5 ML VIAL INHALATION ×6 (00:04→21:52)
[2022-03-25 04:13] LABS: Hematocrit 28.4 % (42.0-52.0); Hemoglobin 8.1 g/dL (14.0-18.0); Mean Corpuscular HGB Conc 28.5 g/dl (32-36); Mean Corpuscular Hemoglobin 22.7 pg (26-34); Mean Corpuscular Volume 79.6 fl (80-100); Mean Platelet Volume 9.5 fl (7.4-10.4); Platelet Count Result 347 k/mm3 (150-375); Red Blood Count 3.57 M/mm3 (4.6-6.20); Red Cell Distribution Width 22.1 % (11.5-14.5); White Blood Count 11.1 K/mm3 (4.5-10.0)
[2022-03-25 04:25] LABS: Alanine Aminotransferase 45 U/L (6-50); Albumin Level 3.5 g/dL (3.5-5.1); Alkaline Phosphatase 78 U/L (38-126); Anion Gap 1 mmol/L (8-16); Aspartate Amino Transferase 44 U/L (17-59); Bilirubin,Total 0.6 mg/dL (0.2-1.3); Blood Urea Nitrogen 36 mg/dL (9-20); Calcium 8.3 mg/dL (8.4-10.2); Carbon Dioxide 39 mmol/L (22-30); Chloride 100 mmol/L (98-107); Estimated CRCL calculation 64 ml/min; Estimated Glomerular Filt Rate 60; Glucose 211 mg/dL (65-110); Magnesium 2.5 mg/dL (1.6-2.3); Phosphorus 3.1 mg/dL (2.5-4.5); Potassium 4.1 mmol/L (3.4-5.0); Sodium 140 mmol/L (137-145)
[2022-03-25] MEDS: LEVOTHYROXINE SODIUM INJ 100 MCG/5 ML VIAL 25 MCG IV PUSH (06:09)
[2022-03-25] MEDS: ENOXAPARIN 40 MG/0.4 ML SYRINGE SUB-Q (08:40)
[2022-03-25] MEDS: PANTOPRAZOLE SODIUM IV 40 MG VIAL IV PUSH ×2 (08:40→20:04)
[2022-03-25] MEDS: methylPREDNISolone SOD SUCC 125 MG VIAL 60 MG IV PUSH (08:40)
[2022-03-25] MEDS: FUROSEMIDE INJ 40 MG/4 ML VIAL IV PUSH ×2 (08:40→20:04)
[2022-03-25] MEDS: AMIODARONE HCL 200 MG TABLET PO (08:41)
[2022-03-25] MEDS: METOPROLOL TARTRATE 50 MG TAB PO ×2 (08:41→20:04)
[2022-03-25] MEDS: ASPIRIN 81 MG ENTERIC TABLET PO (08:41)
[2022-03-25] MEDS: ATORVASTATIN 40 MG TABLET 80 MG PO (08:41)
[2022-03-25] MEDS: BUDESONIDE RESPULE NEB 0.5 MG/2 ML AMP INHALATION ×2 (09:30→21:52)
--- NOTE | 2022-03-25 10:07 | WPDINTPN ---
Progress Note: A&P Assessment and Plan (1) Acute on chronic respiratory failure with hypoxia and hypercapnia: Code(s): J96.21 - Acute and chronic respiratory failure with hypoxia; J96.22 - Acute and chronic respiratory failure with hypercapnia Status: Acute Assessment and Plan: Acute on chronic hypercapnic respiratory failure likely secondary to COPD exacerbation, CHF, stroke, pneumonia -patient could have felt weak because of hypercapnia, possible stroke, anemia -patient on BiPAP initially was and 25/11 which was switched to 29/11, repeat ABGs seem to be improving - 03/21 -patient has been switched to Vapotherm (high velocity), repeat ABGs much improved, continue patient on Vapotherm Patient was switched to BiPAP for increased work of breathing at night - 03/22 back on Vapotherm and maintaining saturation - 03/23 wore BiPAP overnight and now is going to be transition to Vapotherm. Will continue trying to use Vapotherm during the day and BiPAP at night - 03/24 continue BiPAP at night/prn and Vapotherm during the day 03/25 -no significant changes status. Continue BiPAP at night and p.r.n. Vapotherm during the day. Continue diuretics He remains at risk of requiring intubation -continue bronchodilators, -continued Budesonide nebulizer -continue short course off Solu-Medrol -continue ceftriaxone and azithromycin (03/19) for a 7 day course -patient also has congestive heart failure and Lasix will be continued. Continue b.i.d. dosing -respiratory status continues to be borderline. If he deteriorates he may need intubation and mechanical ventilation (2) Acute CVA (cerebrovascular accident): Code(s): I63.9 - Cerebral infarction, unspecified Status: Acute Assessment and Plan: Patient presented with generalized weakness on 03/18/2022, brain CT on admission showed age indeterminate small right cerebellar infarct which is new since 10/16/2021, several unchanged small infarcts in the bilateral occipital lobes, left frontal lobe, left cerebral hemisphere and couple of small lacunar infarcts at the bilateral basal ganglia. Chronic age-related changes -CTA head and neck 03/18/2022: 80% stenosis of the proximal right internal carotid artery relative to normal distal artery lumen diameter (NASCET criteria).. 55% stenosis of the proximal left internal carotid artery relative to normal distal artery lumen diameter.? Severe stenosis of the left internal carotid artery extending into the cavernous segment of the aorta.:? Mild stenosis of the right internal carotid artery at the cavernous sinus. Evaluation is limited by significant motion artifact. Mild stenosis at the origin of both subclavian arteries. The ER physician had called Neurology had [facility], patient has been accepted awaiting bed -neurology consulted, recommended Lipitor 80 mg q.h.s., - echocardiogram with bubble study showed no shunting -patient had repeat bedside swallow evaluation by speech therapy done 03/21 and was started on modified diet -MRI once patient is more stable respiratory clay -he has not been on any antiplatelet agent due to anemia and suspected blood loss. His hemoglobin has been stable. Continue aspirin (3) COPD (chronic obstructive pulmonary disease): Code(s): J44.9 - Chronic obstructive pulmonary disease, unspecified Status: Acute Assessment and Plan: As above (4) Acute anemia: Code(s): D64.9 - Anemia, unspecified Status: Acute Assessment and Plan: Anemia likely related to GI bleed secondary to hypercoagulability state on rivaroxaban -INR was 7.9 on admission, improved to 3.7 - hold rivaroxaban for now -appreciate GI evaluation and recommendations no intervention at this time, continue to hold anticoagulation -continue PPI IV q.12 hours -no iron levels, low iron saturation, likely iron deficiency -vitamin B12 and folic acid levels are within normal limits -03/20: Hemoglobin dropped to 7.0, patient was
--- NOTE | 2022-03-25 11:20 | PCFNICU ---
ICU Rounding Note: Pt current nutrition is Pureed, Level 4 with Extremely Thick liquids, Level 4. Last recorded weight is 107.5 kg. Bowel Motility:No BM reported, discussed starting med for bowel motility. Labs Reviewed: Glu 124, BUN 36, Hct 28.4,Hgb 8.1 Meds Noted:Solu Medrol, Synthroid, Protonix Skin: WNL Additional Notes: Patient on continuos bipap at night. Oral Intake has been fair,tolerating. Agree with diet orders at this time. Following daily in ICU rounds. .
[2022-03-25] MEDS: INSULIN ASPART (*BKC) 100 UNITS/ML SUB-Q ×3 (11:55→20:05)
[2022-03-25 11:57] LABS: Glucose Point of Care 227 mg/dl (65-105)
--- NOTE | 2022-03-25 12:38 | P.PNNP_ITS ---
Progress Note: A&P Assessment and Plan (1) Acute renal failure: Qualifiers: Acute renal failure type: unspecified Qualified Code(s): N17.9 - Acute kidney failure, unspecified Code(s): N17.9 - Acute kidney failure, unspecified Status: Acute Assessment and Plan: * creatinine has fluctuated to extremes in the last year * has been normal in the past but on last discharge in October 2021, was up to 1.8mg/dl * on admission, he was up to 2.4mg/dl; however, creatinine down to 1.2mg/dl today * evaluation to date: * renal ultrasound unremarkable * FeUrea 34% (technically prerenal) * UA with protein and bilirubin * CPK a bit elevated but not enough to case kidney dysfunction * suspect multifactorial etiology: * prerenal azotemia * ATN from infection and hypotension * follow trend of repeat labs and UOP * diuretic adjustments as needed (2) Acute CVA (cerebrovascular accident): Code(s): I63.9 - Cerebral infarction, unspecified Status: Acute Assessment and Plan: * Neurology following * age-indeterminate stroke in his cerebellum which was not there in October -- cause of fall?? (3) Acute respiratory failure with hypoxia: Code(s): J96.01 - Acute respiratory failure with hypoxia Status: Acute Assessment and Plan: * respiratory status a bit tenuous at this time * further complicated by his baseline COPD * follow closely (4) Essential hypertension: Code(s): I10 - Essential (primary) hypertension Status: Chronic Assessment and Plan: * reasonable control at this time * follow trend of hemodynamics (5) Anemia: Code(s): D64.9 - Anemia, unspecified Status: Acute Assessment and Plan: * due to GI bleed from supratherapeutic INR * anticoagulation on hold * follow trend of H/H * GI recommendations noted (6) Diabetes mellitus: Qualifiers: Diabetes mellitus type: type 2 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 Subjective Date/time seen: 03/25/22 12:38 Chart reviewed -- assuming care from Dr. King; respiratory status/breathing seems a bit better but not back to baseline; renal function continues to improve and reasonably response in terms of urine output with diuretics; no other acute complaints voiced; tolerating BIPAP therapy at night. Exam Narrative: General: WD/WN male in NAD Heart: IRRR, normal S1 and S2; no rub Lungs: coarse breath sounds throughout Abdomen: soft, nontender, nondistended, positive bowel sounds Extremities: no cyanosis or clubbing; 1 - 2+ edema Skin: warm and dry Objective Data Vital Signs Vital Signs: Vital Signs Temp Pulse Resp BP Pulse Ox O2 Del Method O2 Flow Rate 03/25/22 12:00 97.9 F 93 22 H 103/63 95 03/25/22 12:00 BiPAP 03/25/22 12:00 104 H 03/25/22 11:04 112 H 22 H 95 BiPAP 03/25/22 10:00 98 20 128/71 96 03/25/22 10:00 94 03/25/22 09:46 106 H 21 H 03/25/22
--- NOTE | 2022-03-25 12:38 | PM.PNNEP ---
Progress Note: A&P Assessment and Plan (1) Acute renal failure: Qualifiers: Acute renal failure type: unspecified Qualified Code(s): N17.9 - Acute kidney failure, unspecified Code(s): N17.9 - Acute kidney failure, unspecified Status: Acute Assessment and Plan: creatinine has fluctuated to extremes in the last year has been normal in the past but on last discharge in October 2021, was up to 1.8mg/dl on admission, he was up to 2.4mg/dl; however, creatinine down to 1.2mg/dl today evaluation to date: renal ultrasound unremarkable FeUrea 34% (technically prerenal) UA with protein and bilirubin CPK a bit elevated but not enough to case kidney dysfunction suspect multifactorial etiology: prerenal azotemia ATN from infection and hypotension follow trend of repeat labs and UOP diuretic adjustments as needed (2) Acute CVA (cerebrovascular accident): Code(s): I63.9 - Cerebral infarction, unspecified Status: Acute Assessment and Plan: Neurology following age-indeterminate stroke in his cerebellum which was not there in October -- cause of fall?? (3) Acute respiratory failure with hypoxia: Code(s): J96.01 - Acute respiratory failure with hypoxia Status: Acute Assessment and Plan: respiratory status a bit tenuous at this time further complicated by his baseline COPD follow closely (4) Essential hypertension: Code(s): I10 - Essential (primary) hypertension Status: Chronic Assessment and Plan: reasonable control at this time follow trend of hemodynamics (5) Anemia: Code(s): D64.9 - Anemia, unspecified Status: Acute Assessment and Plan: due to GI bleed from supratherapeutic INR anticoagulation on hold follow trend of H/H GI recommendations noted (6) Diabetes mellitus: Qualifiers: Diabetes mellitus type: type 2 Diabetes mellitus 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 Subjective Date/time seen: 03/25/22 12:38 Chart reviewed -- assuming care from Dr. King; respiratory status/breathing seems a bit better but not back to baseline; renal function continues to improve and reasonably response in terms of urine output with diuretics; no other acute complaints voiced; tolerating BIPAP therapy at night. Exam Narrative: General: WD/WN male in NAD Heart: IRRR, normal S1 and S2; no rub Lungs: coarse breath sounds throughout Abdomen: soft, nontender, nondistended, positive bowel sounds Extremities: no cyanosis or clubbing; 1 - 2+ edema Skin: warm and dry Objective Data Vital Signs Vital Signs: Vital Signs Temp Pulse Resp BP Pulse Ox O2 Del Method O2 Flow Rate 03/25/22 12:00 97.9 F 93 22 H 103/63 95 03/25/22 12:00 BiPAP 03/25/22 12:00 104 H 03/25/22 11:04 112 H 22 H 95 BiPAP 03/25/22 10:00 98 20 128/71 96 03/25/22 10:00 94 03/25/22 09:46 106 H 21 H 03/25/22 09:31 99 23 H 95 High Flow Therapy with Na 45 03/25/22 09:31 106 H 24 H 03/25/22 08:00 98.1 F 115 H 23 H 136/80 96 03/25/22 08:00 BiPAP 03/25/22 08:00 100 03/25/22 08:41 105 H 03/25/22 08:41 113 H 03/25/22 06:00 100 03/25/22 06:13 100 20 93 High Flow Therapy with Na 45 03/25/22 06:00 100 18 143/86 H 94 03/25/22 04:00 98.4 F 95 19 149/71 H 95 03/25/22 04:00 105 H 03/25/22 04:00 BiPAP 03/25/22 04:14 102 H 25 H 03/25/22 04:12 100 25 H 95 BiPAP 03/25/22 02:00 93 03/25/22 02:00 93 18 148/83 H 95
[2022-03-25] MEDS: cefTRIAXone 2 GM in SODIUM CHLORIDE 0.9% IV 100 ML 200 ML IVPB (12:45)
[2022-03-25 16:28] LABS: Kappa\\Lambda Light Chains 1.52 (0.26-1.65)
--- NOTE | 2022-03-25 16:56 | PM.IMPN ---
Progress Note: A&P Assessment and Plan (1) Acute CVA (cerebrovascular accident): Code(s): I63.9 - Cerebral infarction, unspecified Status: Acute Assessment and Plan: acute cerebellar infarct patient on anticoagulation patient on statin patient on aspirin 03/25/2022 interval history: 72-year-old male with history chronic hypercarbic respiratory failure and hypoxic with supplemental oxygen presented with a right-sided weakness and altered mental status was found to have acute CVA, patient is chronically anticoagulated with concern of bleeding which is on hold, patient seen by neurologist recommended MRI and cardiac echo with bubble study further evaluation, patient cardiac echo is essentially normal and bubble study with agitated saline contrast did not show any intracardiac shunt, patient with hypercarbic respiratory failure secondary to COPD was on BiPAP, currently off and eating, patient is being treated with methylprednisone, and bronchodilator, currently, was able to feed himself and able to communicate, is seen by deputy commissioner and neurologist and appreciate (2) COPD (chronic obstructive pulmonary disease): Code(s): J44.9 - Chronic obstructive pulmonary disease, unspecified Status: Acute Assessment and Plan: does not appear to be exacerbated not actively wheezing continue breathing treatment (3) Ischemic cardiomyopathy: Code(s): I25.5 - Ischemic cardiomyopathy Status: Acute Assessment and Plan: continue home meds continue to monitor (4) CAD (coronary artery disease): Qualifiers: Coronary Disease-Associated Artery/Lesion type: unspecified vessel or lesion type [place] vs. transplanted heart: unspecified whether [place] or transplanted heart Associated angina: unspecified whether angina present Qualified Code(s): I25.10 - Atherosclerotic heart disease of [place] coronary artery without angina pectoris Code(s): I25.10 - Atherosclerotic heart disease of [place] coronary artery without angina pectoris Status: Acute Assessment and Plan: status post coronary artery bypass graft continue to monitor (5) Obesity hypoventilation syndrome: Code(s): E66.2 - Morbid (severe) obesity with alveolar hypoventilation Status: Acute Assessment and Plan: continue BiPAP (6) Sleep apnea: Code(s): G47.30 - Sleep apnea, unspecified Status: Acute Assessment and Plan: continue BiPAP (7) Alcohol abuse: Code(s): F10.10 - Alcohol abuse, uncomplicated Status: Acute Assessment and Plan: patient has been sober for many years according to record (8) Chronic hypercapnic respiratory failure: Code(s): J96.12 - Chronic respiratory failure with hypercapnia Status: Acute Assessment and Plan: patient is a chronic retainer of CO2 on supplemental oxygen at home Subjective Date/time seen: 03/25/22 16:56 03/25/2022 interval history: 72-year-old male with history chronic hypercarbic respiratory failure and hypoxic with supplemental oxygen presented with a right-sided weakness and altered mental status was found to have acute CVA, patient is chronically anticoagulated with concern of bleeding which is on hold, patient seen by neurologist recommended MRI and cardiac echo with bubble study further evaluation, patient cardiac echo is essentially normal and bubble study with agitated saline contrast did not show any intracardiac shunt, patient with hypercarbic respiratory failure secondary to COPD was on BiPAP, currently off and eating, patient is being treated with methylprednisone, and bronchodilator, currently, was able to feed himself and able to communicate, is seen by deputy commissioner and neurologist and appreciate Review of Systems Review of Systems: ROS unobtainable: Yes unobtainable due to mental status Exam Narrative: morbidly obese Patient is comfortable, NAD HEENT: eye
[2022-03-25 17:07] LABS: Glucose Point of Care 301 mg/dl (65-105)
[2022-03-25] MEDS: QUEtiapine FUMARATE 25 MG TABLET PO (20:05)
[2022-03-25 20:15] LABS: Glucose Point of Care 339 mg/dl (65-105)
[2022-03-25 20:42] LABS: Complement Total CH50 >60 U/mL (31-60)
[2022-03-26] VITALS (37 sets, daily range): BP systolic 104–143; BP diastolic 55–76; PULSE 86–103; RESP 17–28; TEMP 36.4–36.9; O2SAT 88–99
[2022-03-26] MEDS: IPRATROPIUM BR 0.02% INH SOLN 0.5 MG/2.5 ML VIAL INHALATION ×6 (01:17→20:16)
[2022-03-26] MEDS: ALBUTEROL SULFATE NEB 2.5 MG/3 ML INH 5 MG INHALATION ×4 (01:17→11:17)
[2022-03-26] MEDS: LEVOTHYROXINE SODIUM INJ 100 MCG/5 ML VIAL 25 MCG IV PUSH (05:40)
[2022-03-26 06:00] LABS: Hematocrit 29.8 % (42.0-52.0); Hemoglobin 8.5 g/dL (14.0-18.0); Mean Corpuscular HGB Conc 28.5 g/dl (32-36); Mean Corpuscular Hemoglobin 22.4 pg (26-34); Mean Corpuscular Volume 78.6 fl (80-100); Platelet Count Result 373 k/mm3 (150-375); Red Blood Count 3.79 M/mm3 (4.6-6.20); Red Cell Distribution Width 21.8 % (11.5-14.5); White Blood Count 11.8 K/mm3 (4.5-10.0)
[2022-03-26 06:07] LABS: Alanine Aminotransferase 36 U/L (6-50); Albumin Level 3.1 g/dL (3.5-5.1); Alkaline Phosphatase 75 U/L (38-126); Anion Gap 2 mmol/L (8-16); Aspartate Amino Transferase 37 U/L (17-59); Bilirubin,Total 0.7 mg/dL (0.2-1.3); Blood Urea Nitrogen 32 mg/dL (9-20); Calcium 7.8 mg/dL (8.4-10.2); Carbon Dioxide 38 mmol/L (22-30); Chloride 95 mmol/L (98-107); Estimated CRCL calculation 75 ml/min; Estimated Glomerular Filt Rate > 60; Glucose 188 mg/dL (65-110); Magnesium 2.2 mg/dL (1.6-2.3); Potassium 3.8 mmol/L (3.4-5.0); Sodium 135 mmol/L (137-145)
[2022-03-26 08:24] LABS: Glucose Point of Care 204 mg/dl (65-105)
[2022-03-26] MEDS: FUROSEMIDE INJ 40 MG/4 ML VIAL IV PUSH ×2 (08:25→19:46)
[2022-03-26] MEDS: METOPROLOL TARTRATE 50 MG TAB PO ×2 (08:26→19:47)
[2022-03-26] MEDS: ENOXAPARIN 40 MG/0.4 ML SYRINGE SUB-Q (08:26)
[2022-03-26] MEDS: ASPIRIN 81 MG ENTERIC TABLET PO (08:26)
[2022-03-26] MEDS: methylPREDNISolone SOD SUCC 125 MG VIAL 60 MG IV PUSH (08:26)
[2022-03-26] MEDS: AMIODARONE HCL 200 MG TABLET PO (08:26)
[2022-03-26] MEDS: ATORVASTATIN 40 MG TABLET 80 MG PO (08:26)
[2022-03-26] MEDS: INSULIN ASPART (*BKC) 100 UNITS/ML SUB-Q ×3 (08:27→17:10)
[2022-03-26] MEDS: PANTOPRAZOLE SODIUM IV 40 MG VIAL IV PUSH ×2 (08:28→19:46)
[2022-03-26] MEDS: BUDESONIDE RESPULE NEB 0.5 MG/2 ML AMP INHALATION ×2 (08:57→20:16)
--- NOTE | 2022-03-26 10:09 | P.PNNP_ITS ---
Progress Note: A&P Assessment and Plan (1) Acute renal failure: Qualifiers: Acute renal failure type: unspecified Qualified Code(s): N17.9 - Acute kidney failure, unspecified Code(s): N17.9 - Acute kidney failure, unspecified Status: Acute Assessment and Plan: * creatinine has fluctuated to extremes in the last year * has been normal in the past but on last discharge in October 2021, was up to 1.8mg/dl * on admission, he was up to 2.4mg/dl; however, creatinine down to 1.2mg/dl today * evaluation to date: * renal ultrasound unremarkable * FeUrea 34% (technically prerenal) * UA with protein and bilirubin * CPK a bit elevated but not enough to case kidney dysfunction * suspect multifactorial etiology: * prerenal azotemia * ATN from infection and hypotension * follow trend of repeat labs and UOP * diuretic adjustments as needed (2) Acute CVA (cerebrovascular accident): Code(s): I63.9 - Cerebral infarction, unspecified Status: Acute Assessment and Plan: * Neurology following * age-indeterminate stroke in his cerebellum which was not there in October -- cause of fall?? (3) Acute respiratory failure with hypoxia: Code(s): J96.01 - Acute respiratory failure with hypoxia Status: Acute Assessment and Plan: * respiratory status a bit tenuous at this time * further complicated by his baseline COPD * follow closely (4) Essential hypertension: Code(s): I10 - Essential (primary) hypertension Status: Chronic Assessment and Plan: * reasonable control at this time * follow trend of hemodynamics (5) Anemia: Code(s): D64.9 - Anemia, unspecified Status: Acute Assessment and Plan: * due to GI bleed from supratherapeutic INR * anticoagulation on hold * follow trend of H/H * GI recommendations noted (6) Diabetes mellitus: Qualifiers: Diabetes mellitus complication status: without complication Diabetes mellitus 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 Subjective Date/time seen: 03/26/22 10:09 Breathing/respiratory status seems to be doing reasonably well; no acute issues or events overnight or earlier this AM; no apparent distress noted. Exam Narrative: General: WD/WN male in NAD Heart: IRRR, normal S1 and S2; no rub Lungs: coarse breath sounds throughout Abdomen: soft, nontender, nondistended, positive bowel sounds Extremities: no cyanosis or clubbing; 1 - 2+ edema Skin: warm and intact Objective Data Vital Signs Vital Signs: Vital Signs Temp Pulse Resp BP Pulse Ox O2 Del Method O2 Flow Rate 03/26/22 08:57 97 21 H 03/26/22 08:57 91 High Flow Therapy with Na 40 03/26/22 08:39 97 High Flow Therapy with Na 40 03/26/22 08:00 96 BiPAP 03/26/22 08:00 98.1 F 90 17 136/67 96 03/26/22 08:26 89 03/26/22 08:26 89 03/26/22 06:00 93 22 H 116/74 95 03/26/22 06:00 1
--- NOTE | 2022-03-26 10:09 | PM.PNNEP ---
Progress Note: A&P Assessment and Plan (1) Acute renal failure: Qualifiers: Acute renal failure type: unspecified Qualified Code(s): N17.9 - Acute kidney failure, unspecified Code(s): N17.9 - Acute kidney failure, unspecified Status: Acute Assessment and Plan: creatinine has fluctuated to extremes in the last year has been normal in the past but on last discharge in October 2021, was up to 1.8mg/dl on admission, he was up to 2.4mg/dl; however, creatinine down to 1.2mg/dl today evaluation to date: renal ultrasound unremarkable FeUrea 34% (technically prerenal) UA with protein and bilirubin CPK a bit elevated but not enough to case kidney dysfunction suspect multifactorial etiology: prerenal azotemia ATN from infection and hypotension follow trend of repeat labs and UOP diuretic adjustments as needed (2) Acute CVA (cerebrovascular accident): Code(s): I63.9 - Cerebral infarction, unspecified Status: Acute Assessment and Plan: Neurology following age-indeterminate stroke in his cerebellum which was not there in October -- cause of fall?? (3) Acute respiratory failure with hypoxia: Code(s): J96.01 - Acute respiratory failure with hypoxia Status: Acute Assessment and Plan: respiratory status a bit tenuous at this time further complicated by his baseline COPD follow closely (4) Essential hypertension: Code(s): I10 - Essential (primary) hypertension Status: Chronic Assessment and Plan: reasonable control at this time follow trend of hemodynamics (5) Anemia: Code(s): D64.9 - Anemia, unspecified Status: Acute Assessment and Plan: due to GI bleed from supratherapeutic INR anticoagulation on hold follow trend of H/H GI recommendations noted (6) Diabetes mellitus: Qualifiers: Diabetes mellitus complication status: without complication Diabetes mellitus 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 Subjective Date/time seen: 03/26/22 10:09 Breathing/respiratory status seems to be doing reasonably well; no acute issues or events overnight or earlier this AM; no apparent distress noted. Exam Narrative: General: WD/WN male in NAD Heart: IRRR, normal S1 and S2; no rub Lungs: coarse breath sounds throughout Abdomen: soft, nontender, nondistended, positive bowel sounds Extremities: no cyanosis or clubbing; 1 - 2+ edema Skin: warm and intact Objective Data Vital Signs Vital Signs: Vital Signs Temp Pulse Resp BP Pulse Ox O2 Del Method O2 Flow Rate 03/26/22 08:57 97 21 H 03/26/22 08:57 91 High Flow Therapy with Na 40 03/26/22 08:39 97 High Flow Therapy with Na 40 03/26/22 08:00 96 BiPAP 03/26/22 08:00 98.1 F 90 17 136/67 96 03/26/22 08:26 89 03/26/22 08:26 89 03/26/22 06:00 93 22 H 116/74 95 03/26/22 06:00 103 H 03/26/22 04:00 86 03/26/22 04:00 90 20 97 BiPAP 03/26/22 05:30 97.6 F 86 20 143/65 H 96 03/26/22 05:34 93 24 H 03/26/22 01:30 92 24 H 03/26/22 05:20 90 21 H 96 BiPAP 03/26/22 05:20 90 21 H 03/26/22 01:15 88 24 H 95 BiPAP 03/26/22 02:20 125/67 03/26/22 01:51 91 20 125/55 L 95 03/26/22 01:51 92 03/25/22 22:25 89 24 H 03/26/22 01:18 88 24 H 03/26/22 00:00 95 18 95 BiPAP 03/26/22 00:00 98.3 F 95 18 127/71 95 03/26/22 00:00 92 03/25/22 21:54 86 24 H 03/25/22 22:00 81 20 112/74 95
--- NOTE | 2022-03-26 11:13 | PM.PNPUL ---
Progress Note: A&P Assessment and Plan (1) COPD (chronic obstructive pulmonary disease): Code(s): J44.9 - Chronic obstructive pulmonary disease, unspecified Status: Acute Assessment and Plan: Patient with COPD, 52 pack years, quit 2018, mild paraseptal apical predominant emphysema on his CT scan, I have no PFTs. Patient with chronic hypercarbic and hypoxemic respiratory failure on home noninvasive ventilator with the AVAPS-AE mode and on 1 L at rest, 4 L with exertion and 4 L with sleep. he is maintained on nebulized Brovana, ipratropium and budesonide. 03/26 Patient has no wheezing and states that he is breathing 75% back to his baseline. He has no fever, chills, cough, hemoptysis and produces 3-4 phlegm is a a day currently. Patient finished 5 days of Solu-Medrol 60 mg IV this morning. I will continue albuterol 2.5 mg nebulized q.4 hours, ipratropium 0.5 mg nebulized q.4 hours and budesonide 0.5 mg q.12 hours. Goal saturation 90-94%. Currently he is on high-flow nasal cannula 40 L and 35% FiO2 with saturations 91%. He is awake and communicative and we will see if he can be transitioned to high-flow nasal cannula 15 L. other etiologies for his worsening respiratory status include fluid overload, right pleural effusion, pneumonia and obesity with atelectasis. On 03/24/2022 patient was started on Lasix 40 IV q.12 hours. Patient diuresed 3.1 L on 03/25 and I agree with this diuresis. I would perform ultrasound-guided thoracentesis of the right thorax. I will check coags to make sure they are adequate. The patient has finished 7 days of azithromycin and ceftriaxone from 03/19 through 03 26 and he was started on vancomycin and Zosyn on 03/26. This was started for the possibility of a hospital-acquired resistant pneumonia. MRSA swab has been sent. Of note the patient was COVID and influenza negative on admission. Will deescalate once he is clinically stable. discussed with Dr. Pittman and Dr. Ortiz. will follow with you. (2) Acute on chronic respiratory failure with hypoxia and hypercapnia: Code(s): J96.21 - Acute and chronic respiratory failure with hypoxia; J96.22 - Acute and chronic respiratory failure with hypercapnia Status: Acute Assessment and Plan: Patient is followed in the Pulmonary Clinic and last seen on 11/05/2021. DME [employer] He improved clinically with a noninvasive ventilator.He was using a noninvasive ventilator with the AVAPS-AE mode trilogy unit with sleep. download from 10/23/2021 through 11/05/2021 demonstrated he was on with the settings breath rate: Auto, tidal volume 550, EPAP minimum 8, EPAP maximum 10, pressure support minimum 6, pressure support maximum 25. rise time 3, ramp length 10. Uses at greater than 4 hours a night was 93%. Average usage on days used was 6 hours and 49 minutes. Average breath rate was 15 to 17, average tidal volume was 570 to 610, average minute ventilation was 9 to 10, average EPAP was 8.4 to 9.4. Average IPAP was 16.5 to 18.3. average leak was 42 to 55. I interpret this download as excellent compliance, adequate pressures, adequate tidal volume, high leak. I will change patient to AVAPS mode: rate of 18, tidal volume 550, EPAP 8, minimal inspiratory pressure 9, maximal inspiratory pressure 25, inspiratory time 1.0, rise of 5, 35% FiO2. He should wear this when he naps and when he sleeps. I have told the patient to have his family bring in his home noninvasive ventilator. I will obtain a recent download from his [employer] Subjective Date/time seen: 03/26/22 11:13 Interval history: 03/26/2022: This is a new pulmonary consult for COPD 72-year-old man with history of diabetes, coronary artery disease, COPD with chronic hypoxemic and hypercarbic respiratory failure on home noninvasive ventilator with a trilogy unit, on 1 L at rest, 4 L with exertion and 4 L with sleep. Patient is followed in the
[2022-03-26 11:47] LABS: Glucose Point of Care 304 mg/dl (65-105)
--- NOTE | 2022-03-26 11:51 | PCFNICU ---
ICU Rounding Note: Pt current nutrition is Heart Healthy/Pureed, Level 4 with Moderately Thick liquids, Level 3. Last recorded weight is 104.8 kg. Bowel Motility:+BM reported 03/26 Labs Reviewed:Glu 188, BUN 32, Na 135, Hct 29.8,Hgb 8.5 Meds Noted:Solu Medrol, Synthroid, Protonix Skin: WNL Additional Notes: Patient to finish steroids today. Bipap at night. Tolerating diet. Speech therapy continues with treatments at this time. Following daily in ICU rounds.
[2022-03-26 12:35] LABS: INR 1.2; Prothrombin Time 14.9 Seconds (11.1-14.7)
[2022-03-26 12:36] LABS: Partial Thromboplastin Time 32.4 SECONDS (22.3-36.8)
--- NOTE | 2022-03-26 12:46 | PM.CNPUL ---
Assessment and Plan Assessment and plan (1) COPD (chronic obstructive pulmonary disease): Code(s): J44.9 - Chronic obstructive pulmonary disease, unspecified Status: Acute Assessment and Plan: ?Patient with COPD,? 52 pack years, quit 2018,? mild paraseptal apical predominant emphysema on his CT scan,?? I have no PFTs.?? Patient with chronic hypercarbic and hypoxemic respiratory failure? on home noninvasive ventilator with the AVAPS-AE mode and on 1 L at rest, 4 L with exertion and 4 L with sleep.? he is maintained on nebulized Brovana, ipratropium and budesonide. 03/26?? Patient has no wheezing and states that he is breathing 75% back to his baseline.? He has no fever, chills, cough, hemoptysis and produces 3-4 phlegm is a a day currently. ? Patient finished 5 days of Solu-Medrol 60 mg IV this morning.?? I will continue albuterol 2.5 mg nebulized q.4 hours, ipratropium 0.5 mg nebulized q.4 hours and budesonide 0.5 mg q.12 hours. ? Goal saturation 90-94%.? Currently he is on high-flow nasal cannula? 40 L and 35% FiO2 with saturations 91%.? He is awake and communicative and we will see if he can be transitioned to high-flow nasal cannula 15 L. ?other etiologies for his worsening respiratory status include fluid overload, right pleural effusion, pneumonia and obesity with atelectasis.?? On 03/24/2022 patient was started on Lasix 40 IV q.12 hours.? Patient diuresed 3.1 L on 03/25 and I agree with this diuresis.? I would perform ultrasound-guided thoracentesis of the right? thorax.? I will check coags to make sure they are adequate.? The patient has finished 7 days of azithromycin and ceftriaxone from 03/19 through 03 26 and he was started on vancomycin and Zosyn on 03/26.? This was started for the possibility of a hospital-acquired resistant pneumonia.?? MRSA swab has been sent.?? Of note the patient was COVID and influenza negative on admission.? Will deescalate once he is clinically stable. ?discussed with Dr. Pittman and Dr. Diana. Will follow with you (2) Acute on chronic respiratory failure with hypoxia and hypercapnia: Code(s): J96.21 - Acute and chronic respiratory failure with hypoxia; J96.22 - Acute and chronic respiratory failure with hypercapnia Status: Acute Assessment and Plan: Patient is followed in the Pulmonary Clinic and last seen on 11/05/2021.? DME [email or web address] He improved clinically with a noninvasive ventilator.He was using a noninvasive ventilator with the AVAPS-AE mode trilogy unit with sleep.? download from 10/23/2021 through 11/05/2021 demonstrated he was on with the settings breath rate:? Auto, tidal volume 550, EPAP minimum 8, EPAP maximum 10, pressure support minimum 6, pressure support maximum 25.? rise time 3, ramp length 10.?? Uses at greater than 4 hours a night was 93%.? Average usage on days used was 6 hours and 49 minutes.? Average breath rate was 15 to 17, average tidal volume was 570 to 610, average minute ventilation was 9 to 10, average EPAP was 8.4 to 9.4.? Average IPAP was 16.5 to 18.3.?? average leak was 42 to 55. I interpret this download as excellent compliance, adequate pressures, adequate tidal volume, high leak. ? I will change patient to AVAPS mode:? rate of 18, tidal volume 550, EPAP 8, minimal inspiratory pressure 9, maximal inspiratory pressure 25, inspiratory time 1.0, rise of 5, 35% FiO2.?? He should wear this when he naps and when he sleeps. ? I have told the patient to have his family bring in his home noninvasive ventilator.? I will obtain a recent download from his [employer] company [email or web address]. History of Present Illness History of Present Illness Consult date: 03/26/22 Chief complaint: CVA,CHF,GIB w/anemia,Acute Resp Failur,elevatedINR Narrative: 03/26/2022: This is a new pulmonary consult for COPD 72-year-old man with history of diabetes, coronary artery disease, COPD with chronic hypoxemic and hypercarbic respiratory failure on home noninvasive ventilator with a trilogy
[2022-03-26 12:48] LABS: NT Pro B Type Natriuretic Pept 3870 pg/mL (5-100)
--- NOTE | 2022-03-26 12:54 | WPDINTPN ---
Progress Note: A&P Assessment and Plan (1) Acute on chronic respiratory failure with hypoxia and hypercapnia: Code(s): J96.21 - Acute and chronic respiratory failure with hypoxia; J96.22 - Acute and chronic respiratory failure with hypercapnia Status: Acute Assessment and Plan: Acute on chronic hypercapnic respiratory failure likely secondary to COPD exacerbation, CHF, stroke, pneumonia -patient could have felt weak because of hypercapnia, possible stroke, anemia -patient on BiPAP initially was and 25/11 which was switched to 29/11, repeat ABGs seem to be improving - 03/21 -patient has been switched to Vapotherm (high velocity), repeat ABGs much improved, continue patient on Vapotherm Patient was switched to BiPAP for increased work of breathing at night - 03/22 back on Vapotherm and maintaining saturation - 03/23 wore BiPAP overnight and now is going to be transition to Vapotherm. Will continue trying to use Vapotherm during the day and BiPAP at night - 03/24 continue BiPAP at night/prn and Vapotherm during the day 03/25 -no significant changes status. Continue BiPAP at night and p.r.n. Vapotherm during the day. Continue diuretics -continue bronchodilators, -continued Budesonide nebulizer -continue short course off Solu-Medrol -continue ceftriaxone and azithromycin (03/19) for a 7 day course -patient also has congestive heart failure and Lasix will be continued. Continue b.i.d. dosing -respiratory status continues improve. -discussed with pulmonology, he is seen in the Pulmonary Clinic, requires AVAPS while he is sleeping. -will try high-flow nasal cannula (2) Acute CVA (cerebrovascular accident): Code(s): I63.9 - Cerebral infarction, unspecified Status: Acute Assessment and Plan: Patient presented with generalized weakness on 03/18/2022, brain CT on admission showed age indeterminate small right cerebellar infarct which is new since 10/16/2021, several unchanged small infarcts in the bilateral occipital lobes, left frontal lobe, left cerebral hemisphere and couple of small lacunar infarcts at the bilateral basal ganglia. Chronic age-related changes -CTA head and neck 03/18/2022: 80% stenosis of the proximal right internal carotid artery relative to normal distal artery lumen diameter (NASCET criteria).. 55% stenosis of the proximal left internal carotid artery relative to normal distal artery lumen diameter.? Severe stenosis of the left internal carotid artery extending into the cavernous segment of the aorta.:? Mild stenosis of the right internal carotid artery at the cavernous sinus. Evaluation is limited by significant motion artifact. Mild stenosis at the origin of both subclavian arteries. The ER physician had called Neurology had [facility], patient has been accepted awaiting bed -neurology consulted, recommended Lipitor 80 mg q.h.s., - echocardiogram with bubble study showed no shunting -patient had repeat bedside swallow evaluation by speech therapy done 03/21 and was started on modified diet -MRI once patient is more stable respiratory lcay -he has not been on any antiplatelet agent due to anemia and suspected blood loss. His hemoglobin has been stable. Continue aspirin (3) COPD (chronic obstructive pulmonary disease): Code(s): J44.9 - Chronic obstructive pulmonary disease, unspecified Status: Acute Assessment and Plan: As above (4) Acute anemia: Code(s): D64.9 - Anemia, unspecified Status: Acute Assessment and Plan: Anemia likely related to GI bleed secondary to hypercoagulability state on rivaroxaban -INR was 7.9 on admission, improved to 3.7 - hold rivaroxaban for now -appreciate GI evaluation and recommendations no intervention at this time, continue to hold anticoagulation -continue PPI IV q.12 hours -no iron levels, low iron saturation, likely iron deficiency -vitamin B12 and folic acid levels are within normal limits -03/20: Hemoglobin dropped to
[2022-03-26] MEDS: CENTRAL LINE FLUSH 10 ML IV PUSH ×2 (13:45→22:13)
[2022-03-26] MEDS: ALBUTEROL SULFATE NEB 2.5 MG/3 ML INH INHALATION ×2 (16:15→20:17)
--- NOTE | 2022-03-26 17:02 | PM.IMPN ---
Progress Note: A&P Assessment and Plan (1) Acute CVA (cerebrovascular accident): Code(s): I63.9 - Cerebral infarction, unspecified Status: Acute Assessment and Plan: acute cerebellar infarct patient on anticoagulation patient on statin patient on aspirin 03/26/2022 interval history: 72-year-old male with history chronic hypercarbic respiratory failure and hypoxic with supplemental oxygen presented with a right-sided weakness and altered mental status was found to have acute CVA, patient is chronically anticoagulated with concern of bleeding which is on hold, patient seen by neurologist recommended MRI and cardiac echo with bubble study further evaluation, patient cardiac echo is essentially normal and bubble study with agitated saline contrast did not show any intracardiac shunt, patient with hypercarbic respiratory failure secondary to COPD was on BiPAP, currently off and eating, patient is being treated with methylprednisone, and bronchodilator, currently, was able to feed himself and able to communicate, is seen by surgical processor and neurologist and appreciate AVAP settings, also recommended thoracentesis which be done later today or tomorrow, was able to feed himself and able to communicate, is seen by surgical processor, clothes model and neurologist and appreciate (2) COPD (chronic obstructive pulmonary disease): Code(s): J44.9 - Chronic obstructive pulmonary disease, unspecified Status: Acute Assessment and Plan: does not appear to be exacerbated not actively wheezing continue breathing treatment (3) Ischemic cardiomyopathy: Code(s): I25.5 - Ischemic cardiomyopathy Status: Acute Assessment and Plan: continue home meds continue to monitor (4) CAD (coronary artery disease): Qualifiers: Coronary Disease-Associated Artery/Lesion type: unspecified vessel or lesion type [place] vs. transplanted heart: unspecified whether council or transplanted heart Associated angina: unspecified whether angina present Qualified Code(s): I25.10 - Atherosclerotic heart disease of council coronary artery without angina pectoris Code(s): I25.10 - Atherosclerotic heart disease of council coronary artery without angina pectoris Status: Acute Assessment and Plan: status post coronary artery bypass graft continue to monitor (5) Obesity hypoventilation syndrome: Code(s): E66.2 - Morbid (severe) obesity with alveolar hypoventilation Status: Acute Assessment and Plan: continue BiPAP (6) Sleep apnea: Code(s): G47.30 - Sleep apnea, unspecified Status: Acute Assessment and Plan: continue BiPAP (7) Alcohol abuse: Code(s): F10.10 - Alcohol abuse, uncomplicated Status: Acute Assessment and Plan: patient has been sober for many years according to record (8) Chronic hypercapnic respiratory failure: Code(s): J96.12 - Chronic respiratory failure with hypercapnia Status: Acute Assessment and Plan: patient is a chronic retainer of CO2 on supplemental oxygen at home Subjective Date/time seen: 03/26/22 17:02 03/26/2022 interval history: 72-year-old male with history chronic hypercarbic respiratory failure and hypoxic with supplemental oxygen presented with a right-sided weakness and altered mental status was found to have acute CVA, patient is chronically anticoagulated with concern of bleeding which is on hold, patient seen by neurologist recommended MRI and cardiac echo with bubble study further evaluation, patient cardiac echo is essentially normal and bubble study with agitated saline contrast did not show any intracardiac shunt, patient with hypercarbic respiratory failure secondary to COPD was on BiPAP, currently off and eating, patient is being treated with methylprednisone, and bronchodilator, currently, was able to feed himself and able to communicate, is seen by surgical processor an
[2022-03-26 17:07] LABS: Glucose Point of Care 287 mg/dl (65-105)
[2022-03-26] MEDS: QUEtiapine FUMARATE 25 MG TABLET PO (19:47)
[2022-03-26 21:54] LABS: Glucose Point of Care 382 mg/dl (65-105)
[2022-03-26 23:55] LABS: Glucose Point of Care 317 mg/dl (65-105)
[2022-03-27] VITALS (31 sets, daily range): BP systolic 90–136; BP diastolic 48–70; PULSE 79–103; RESP 16–22; TEMP 36.4–37.1; O2SAT 93–100
[2022-03-27] MEDS: IPRATROPIUM BR 0.02% INH SOLN 0.5 MG/2.5 ML VIAL INHALATION ×6 (03:12→21:48)
[2022-03-27] MEDS: ALBUTEROL SULFATE NEB 2.5 MG/3 ML INH INHALATION ×6 (03:12→21:47)
[2022-03-27] MEDS: CENTRAL LINE FLUSH 10 ML IV PUSH ×3 (05:22→21:11)
[2022-03-27] MEDS: LEVOTHYROXINE SODIUM INJ 100 MCG/5 ML VIAL 25 MCG IV PUSH (05:22)
[2022-03-27 05:37] LABS: Hematocrit 29.4 % (42.0-52.0); Hemoglobin 8.5 g/dL (14.0-18.0); Mean Corpuscular HGB Conc 28.9 g/dl (32-36); Mean Corpuscular Hemoglobin 22.8 pg (26-34); Platelet Count Result 325 k/mm3 (150-375); Red Blood Count 3.72 M/mm3 (4.6-6.20); Red Cell Distribution Width 21.6 % (11.5-14.5); White Blood Count 11.5 K/mm3 (4.5-10.0)
[2022-03-27 05:43] LABS: Glucose Point of Care 261 mg/dl (65-105)
[2022-03-27 05:48] LABS: Alanine Aminotransferase 35 U/L (6-50); Alkaline Phosphatase 78 U/L (38-126); Anion Gap 3 mmol/L (8-16); Aspartate Amino Transferase 30 U/L (17-59); Bilirubin,Total 0.7 mg/dL (0.2-1.3); Blood Urea Nitrogen 30 mg/dL (9-20); Calcium 7.3 mg/dL (8.4-10.2); Carbon Dioxide 39 mmol/L (22-30); Chloride 92 mmol/L (98-107); Estimated CRCL calculation 75 ml/min; Estimated Glomerular Filt Rate > 60; Glucose 241 mg/dL (65-110); Lactate Dehydrogenase 173 U/L (120-246); Magnesium 2.1 mg/dL (1.6-2.3); Potassium 3.7 mmol/L (3.4-5.0); Sodium 134 mmol/L (137-145)
[2022-03-27] MEDS: BUDESONIDE RESPULE NEB 0.5 MG/2 ML AMP INHALATION ×2 (07:55→21:47)
[2022-03-27] MEDS: ATORVASTATIN 40 MG TABLET 80 MG PO (08:17)
[2022-03-27] MEDS: FUROSEMIDE INJ 40 MG/4 ML VIAL IV PUSH ×2 (08:17→20:46)
[2022-03-27] MEDS: METOPROLOL TARTRATE 50 MG TAB PO ×2 (08:18→20:46)
[2022-03-27] MEDS: AMIODARONE HCL 200 MG TABLET PO (08:18)
[2022-03-27] MEDS: PANTOPRAZOLE SODIUM IV 40 MG VIAL IV PUSH ×2 (08:18→20:46)
[2022-03-27 08:28] LABS: Glucose Point of Care 200 mg/dl (65-105)
--- NOTE | 2022-03-27 08:53 | PM.PNPUL ---
Progress Note: A&P Assessment and Plan (1) COPD (chronic obstructive pulmonary disease): Code(s): J44.9 - Chronic obstructive pulmonary disease, unspecified Status: Acute Assessment and Plan: ?Patient with COPD,? 52 pack years, quit 2019,? mild paraseptal apical predominant emphysema on his CT scan,?? I have no PFTs.?? Patient with chronic hypercarbic and hypoxemic respiratory failure? on home noninvasive ventilator with the AVAPS-AE mode and on 1 L at rest, 4 L with exertion and 4 L with sleep.? he is maintained on nebulized Brovana, ipratropium and budesonide. 03/26?? Patient has no wheezing and states that he is breathing 75% back to his baseline.? He has no fever, chills, cough, hemoptysis and produces 3-4 phlegm is a a day currently. ? Patient finished 5 days of Solu-Medrol 60 mg IV this morning.?? I will continue albuterol 2.5 mg nebulized q.4 hours, ipratropium 0.5 mg nebulized q.4 hours and budesonide 0.5 mg q.12 hours. ? Goal saturation 90-94%.? Currently he is on high-flow nasal cannula? 40 L and 35% FiO2 with saturations 91%.? He is awake and communicative and we will see if he can be transitioned to high-flow nasal cannula 15 L. ?other etiologies for his worsening respiratory status include fluid overload, right pleural effusion, pneumonia and obesity with atelectasis.?? On 03/24/2022 patient was started on Lasix 40 IV q.12 hours.? Patient diuresed 3.1 L on 03/25 and I agree with this diuresis.? I would perform ultrasound-guided thoracentesis of the right? thorax.? I will check coags to make sure they are adequate.? The patient has finished 7 days of azithromycin and ceftriaxone from 03/19 through 03 26 and he was started on vancomycin and Zosyn on 03/26.? This was started for the possibility of a hospital-acquired resistant pneumonia.?? MRSA swab has been sent.?? Of note the patient was COVID and influenza negative on admission.? Will deescalate once he is clinically stable. 03/26 Patient wore the hospital noninvasive ventilator with the a VATS mode rate of 18, tidal volume 550, EPAP 8, minimal inspiratory pressure 9, maximal inspiratory pressure 25, inspiratory time 1.0, rise a 5 which is are slowest, 35% FiO2. he said these settings felt similar to his home machine. Currently the patient is on BiPAP. Says he is in no respiratory distress and that he is doing well. He has no wheezing on exam. His creatinine is 1.0, white blood cell count 11.5, -2.1 5 L yesterday cumulative -7.9 L since admission. Scheduled for ultrasound-guided thoracentesis of the right lung later in the day. Continue albuterol, ipratropium and budesonide nebulizers (he is on home brovana, budesonide and ipratroprium nebs). Day 2 vanc and Zosyn. Await ultrasound-guided thoracentesis to look for infection prior to deescalation. Will follow with you (2) Acute on chronic respiratory failure with hypoxia and hypercapnia: Code(s): J96.21 - Acute and chronic respiratory failure with hypoxia; J96.22 - Acute and chronic respiratory failure with hypercapnia Status: Acute Assessment and Plan: Patient is followed in the Pulmonary Clinic and last seen on 11/05/2021.? DME [employer] He improved clinically with a noninvasive ventilator.He was using a noninvasive ventilator with the AVAPS-AE mode trilogy unit with sleep.? download from 10/23/2021 through 11/05/2021 demonstrated he was on with the settings breath rate:? Auto, tidal volume 550, EPAP minimum 8, EPAP maximum 10, pressure support minimum 6, pressure support maximum 25.? rise time 3, ramp length 10.?? Uses at greater than 4 hours a night was 93%.? Average usage on days used was 6 hours and 49 minutes.? Average breath rate was 15 to 17, average tidal volume was 570 to 610, average minute ventilation was 9 to 10, average EPAP was 8.4 to 9.4.? Average IPAP was 16.5 to 18.3.?? average leak was 42 to 55. I interpret this download as excellent compliance, adequate pressures, adequate tidal volu
[2022-03-27 12:03] LABS: Glucose Point of Care 172 mg/dl (65-105)
--- NOTE | 2022-03-27 12:18 | PCFNICU ---
ICU Rounding Note: Pt current nutrition is NPO. Last recorded weight is 105.6 kg. Bowel Motility:+BM reported 03/26 Labs Reviewed:Glu 241, BUN 30, Na 134,Alb 3.0 Meds Noted:Protonix, Synthroid, Zosyn, Lasix, Lopressor. Skin:WNL Additional Notes: Patient NPO for thoracentesis today. When diet order advances recommend to continue with Pureed, Level 4 and Moderately Thick liquids, Level 3. Oral Intake has been good. Following daily in ICU rounds.
--- NOTE | 2022-03-27 12:53 | PM.IMPN ---
Progress Note: A&P Assessment and Plan (1) Acute on chronic respiratory failure with hypoxia and hypercapnia: Code(s): J96.21 - Acute and chronic respiratory failure with hypoxia; J96.22 - Acute and chronic respiratory failure with hypercapnia Status: Acute Assessment and Plan: Acute on chronic hypercapnic respiratory failure likely secondary to COPD exacerbation, CHF, stroke, pneumonia -patient could have felt weak because of hypercapnia, possible stroke, anemia -patient on BiPAP initially was and 25/11 which was switched to 29/11, repeat ABGs seem to be improving - 03/21 -patient has been switched to Vapotherm (high velocity), repeat ABGs much improved, continue patient on Vapotherm Patient was switched to BiPAP for increased work of breathing at night - 03/22 back on Vapotherm and maintaining saturation - 03/23 wore BiPAP overnight and now is going to be transition to Vapotherm. Will continue trying to use Vapotherm during the day and BiPAP at night - 03/24 continue BiPAP at night/prn and Vapotherm during the day 03/25 -no significant changes status. Continue BiPAP at night and p.r.n. Vapotherm during the day. Continue diuretics -continue bronchodilators, -continued Budesonide nebulizer -status post short course of Solu-Medrol -continue ceftriaxone and azithromycin (03/19) for a 7 day course -patient also has congestive heart failure and Lasix will be continued. Continue b.i.d. dosing -respiratory status continues improve. -discussed with pulmonology, he is seen in the Pulmonary Clinic, requires AVAPS while he is sleeping. -patient tolerating high-flow nasal cannula with 3 L oxygen when awake, he is placed on noninvasive ventilation with AVAPS setting when he is asleep -03/27: Patient will be getting ultrasound guided right-sided thoracentesis by intervention Radiology -Zosyn and vancomycin on 03/26/2022 worsening chest x-ray and pleural effusion, MRSA screen is pending, will discontinue vancomycin if MRSA screen is negative (2) Acute CVA (cerebrovascular accident): Code(s): I63.9 - Cerebral infarction, unspecified Status: Acute Assessment and Plan: Patient presented with generalized weakness on 03/18/2022, brain CT on admission showed age indeterminate small right cerebellar infarct which is new since 10/16/2021, several unchanged small infarcts in the bilateral occipital lobes, left frontal lobe, left cerebral hemisphere and couple of small lacunar infarcts at the bilateral basal ganglia. Chronic age-related changes -CTA head and neck 03/18/2022: 80% stenosis of the proximal right internal carotid artery relative to normal distal artery lumen diameter (NASCET criteria).. 55% stenosis of the proximal left internal carotid artery relative to normal distal artery lumen diameter.? Severe stenosis of the left internal carotid artery extending into the cavernous segment of the aorta.:? Mild stenosis of the right internal carotid artery at the cavernous sinus. Evaluation is limited by significant motion artifact. Mild stenosis at the origin of both subclavian arteries. The ER physician had called Neurology had [facility], patient has been accepted awaiting bed -neurology consulted, recommended Lipitor 80 mg q.h.s., - echocardiogram with bubble study showed no shunting -patient had repeat bedside swallow evaluation by speech therapy done 03/21 and was started on modified diet -MRI once patient is more stable respiratory clay -he has not been on any antiplatelet agent due to anemia and suspected blood loss. His hemoglobin has been stable. Continue aspirin (3) COPD (chronic obstructive pulmonary disease): Code(s): J44.9 - Chronic obstructive pulmonary disease, unspecified Status: Acute Assessment and Plan: As above (4) Acute anemia: Code(s): D64.9 - Anemia, unspecified Status: Acute Assessment and Plan: Anemia likely related to GI bleed secondary to hypercoagulability state o
[2022-03-27 13:52] LABS: Appearance Pleural Fluid Hazy (Clear); Pleural fluid source Pleural fluid
[2022-03-27 13:53] LABS: Color Pleural Fluid Yellow (Colorless); Lymphocytes Pleural Fluid 5 %; Macrophages Pleural Fluid 19 %; Mesothelial Cells Pleural Flui 33 %; Monocytes Pleural Fluid 18 %; Neutrophils Pleural Fluid 25 % (0-25)
[2022-03-27 15:49] LABS: pH Pleural Fluid > 7.500 (7.210-7.500)
[2022-03-27] MEDS: INSULIN ASPART (*BKC) 100 UNITS/ML SUB-Q (16:52)
[2022-03-27] MEDS: INSULIN GLARGINE (*BKC) 100 UNITS/ML 10 UNITS SUB-Q (16:52)
[2022-03-27 17:00] LABS: Glucose Point of Care 217 mg/dl (65-105)
[2022-03-27] MEDS: QUEtiapine FUMARATE 25 MG TABLET PO (20:46)
[2022-03-27 21:04] LABS: Glucose Point of Care 192 mg/dl (65-105)
[2022-03-27] MEDS: ACETAMINOPHEN ELIXIR 325 MG/10.15 ML UDC 650 MG PO (21:10)
[2022-03-28] VITALS (19 sets, daily range): BP systolic 103–125; BP diastolic 48–69; PULSE 76–109; RESP 17–23; TEMP 36–36.9; O2SAT 91–98
[2022-03-28 00:11] LABS: Vancomycin Trough 23.4 ug/mL (10.0-20.0)
[2022-03-28 05:12] LABS: Alveolar/Arterial O2 Gradient 101.7 mmHg; Base Excess ABG 14.6 mEq/l (+/-2.0); Fractional Inspired Oxygen 32 %; HCO3 ABG 40.2 mEq/l (22.0-26.0); Oxygen Content ABG 12.8 %vol (16.0-22.0); Oxygen Saturation ABG 91.8 % (95.0-100.0); Oxyhemoglobin 90.4 % THb (90.0-100.0); PCO2 ABG 56.8 mmHg (35.0-45.0); PO2 FiO2 Ratio Arterial Blood 1.88 %; pH ABG 7.468 (7.350-7.450)
[2022-03-28 05:13] LABS: Device NASAL CANNULA; Modified Allen's Test Unable to perform; Site Drawn RIGHT RADIAL
[2022-03-28 05:21] LABS: Hemoglobin 8.9 g/dL (14.0-18.0); Mean Corpuscular HGB Conc 28.7 g/dl (32-36); Mean Corpuscular Hemoglobin 22.5 pg (26-34); Mean Corpuscular Volume 78.5 fl (80-100); Mean Platelet Volume 9.5 fl (7.4-10.4); Platelet Count Result 314 k/mm3 (150-375); Red Blood Count 3.95 M/mm3 (4.6-6.20); Red Cell Distribution Width 21.9 % (11.5-14.5); White Blood Count 10.7 K/mm3 (4.5-10.0)
[2022-03-28 05:42] LABS: Alanine Aminotransferase 34 U/L (6-50); Albumin Level 2.9 g/dL (3.5-5.1); Alkaline Phosphatase 80 U/L (38-126); Aspartate Amino Transferase 33 U/L (17-59); Bilirubin,Total 0.9 mg/dL (0.2-1.3); Blood Urea Nitrogen 28 mg/dL (9-20); Calcium 7.3 mg/dL (8.4-10.2); Carbon Dioxide > 40 mmol/L (22-30); Chloride 90 mmol/L (98-107); Estimated CRCL calculation 51 ml/min; Estimated Glomerular Filt Rate 46; Glucose 128 mg/dL (65-110); Potassium 3.6 mmol/L (3.4-5.0); Sodium 134 mmol/L (137-145)
[2022-03-28] MEDS: LEVOTHYROXINE SODIUM INJ 100 MCG/5 ML VIAL 25 MCG IV PUSH (06:10)
[2022-03-28] MEDS: CENTRAL LINE FLUSH 10 ML IV PUSH ×3 (06:10→21:43)
[2022-03-28 08:05] LABS: Glucose Point of Care 177 mg/dl (65-105)
[2022-03-28] MEDS: BUDESONIDE RESPULE NEB 0.5 MG/2 ML AMP INHALATION ×2 (09:16→20:53)
[2022-03-28] MEDS: ALBUTEROL SULFATE NEB 2.5 MG/3 ML INH INHALATION ×5 (09:16→20:54)
[2022-03-28] MEDS: IPRATROPIUM BR 0.02% INH SOLN 0.5 MG/2.5 ML VIAL INHALATION ×5 (09:16→20:53)
[2022-03-28] MEDS: INSULIN GLARGINE (*BKC) 100 UNITS/ML 10 UNITS SUB-Q (09:39)
[2022-03-28] MEDS: PANTOPRAZOLE SODIUM IV 40 MG VIAL IV PUSH ×2 (09:40→21:43)
[2022-03-28] MEDS: ENOXAPARIN 40 MG/0.4 ML SYRINGE SUB-Q (09:40)
[2022-03-28] MEDS: AMIODARONE HCL 200 MG TABLET PO (09:40)
[2022-03-28] MEDS: METOPROLOL TARTRATE 50 MG TAB PO ×2 (09:40→21:42)
[2022-03-28] MEDS: ASPIRIN 81 MG ENTERIC TABLET PO (09:41)
[2022-03-28] MEDS: ATORVASTATIN 40 MG TABLET 80 MG PO (09:41)
[2022-03-28] MEDS: ACETAMINOPHEN ELIXIR 325 MG/10.15 ML UDC 650 MG PO ×2 (10:56→22:00)
--- NOTE | 2022-03-28 10:58 | PM.PNPUL ---
Progress Note: A&P Assessment and Plan (1) COPD (chronic obstructive pulmonary disease): Code(s): J44.9 - Chronic obstructive pulmonary disease, unspecified Status: Acute Assessment and Plan: ?Patient with COPD,? 52 pack years, quit 2019,? mild paraseptal apical predominant emphysema on his CT scan,?? I have no PFTs.?? Patient with chronic hypercarbic and hypoxemic respiratory failure? on home noninvasive ventilator with the AVAPS-AE mode and on 1 L at rest, 4 L with exertion and 4 L with sleep.? he is maintained on nebulized Brovana, ipratropium and budesonide. 03/26?? Patient has no wheezing and states that he is breathing 75% back to his baseline.? He has no fever, chills, cough, hemoptysis and produces 3-4 phlegm is a a day currently. ? Patient finished 5 days of Solu-Medrol 60 mg IV this morning.?? I will continue albuterol 2.5 mg nebulized q.4 hours, ipratropium 0.5 mg nebulized q.4 hours and budesonide 0.5 mg q.12 hours. ? Goal saturation 90-94%.? Currently he is on high-flow nasal cannula? 40 L and 35% FiO2 with saturations 91%.? He is awake and communicative and we will see if he can be transitioned to high-flow nasal cannula 15 L. ?other etiologies for his worsening respiratory status include fluid overload, right pleural effusion, pneumonia and obesity with atelectasis.?? On 03/24/2022 patient was started on Lasix 40 IV q.12 hours.? Patient diuresed 3.1 L on 03/25 and I agree with this diuresis.? I would perform ultrasound-guided thoracentesis of the right? thorax.? I will check coags to make sure they are adequate.? The patient has finished 7 days of azithromycin and ceftriaxone from 03/19 through 03 26 and he was started on vancomycin and Zosyn on 03/26.? This was started for the possibility of a hospital-acquired resistant pneumonia.?? MRSA swab has been sent.?? Of note the patient was COVID and influenza negative on admission.? Will deescalate once he is clinically stable. 03/26 Patient wore the hospital noninvasive ventilator with the a VATS mode rate of 18, tidal volume 550, EPAP 8, minimal inspiratory pressure 9, maximal inspiratory pressure 25, inspiratory time 1.0, rise a 5 which is are slowest, 35% FiO2. he said these settings felt similar to his home machine. Currently the patient is on BiPAP. Says he is in no respiratory distress and that he is doing well. He has no wheezing on exam. His creatinine is 1.0, white blood cell count 11.5, -2.1 5 L yesterday cumulative -7.9 L since admission. Scheduled for ultrasound-guided thoracentesis of the right lung later in the day. Continue albuterol, ipratropium and budesonide nebulizers (he is on home brovana, budesonide and ipratroprium nebs). Day 2 vanc and Zosyn. Await ultrasound-guided thoracentesis to look for infection prior to deescalation. 03/27 Currently he states he is breathing close to his normal. He is currently on 2 L nasal cannula saturations 96%. His creatinine increased to 1.50 and his Lasix has been held. His white blood cell count is 10.7. patient with no evidence of healthcare associated pneumonia no evidence of empyema on his right pleural fluid and will discontinue vancomycin and Zosyn at this time. Continue albuterol, ipratropium and budesonide nebulizers. Aggressive physical therapy. Discussed wt Dr. Pittman, Will follow with you (2) Acute on chronic respiratory failure with hypoxia and hypercapnia: Code(s): J96.21 - Acute and chronic respiratory failure with hypoxia; J96.22 - Acute and chronic respiratory failure with hypercapnia Status: Acute Assessment and Plan: Patient is followed in the Pulmonary Clinic and last seen on 11/05/2021.? DME [employer].? He improved clinically with a noninvasive ventilator.He was using a noninvasive ventilator with the AVAPS-AE mode trilogy unit with sleep.? download from 10/23/2021 through 11/05/2021 demonstrated he was on with the settings breath rate:? Auto, tidal volume 550, EPAP mini
--- NOTE | 2022-03-28 11:14 | WPDNEURCNPN ---
Assessment and Plan Assessment and plan (1) Atrial fibrillation: Code(s): I48.91 - Unspecified atrial fibrillation Status: Acute (2) Acute gastrointestinal bleeding: Code(s): K92.2 - Gastrointestinal hemorrhage, unspecified Status: Acute (3) Acute CVA (cerebrovascular accident): Code(s): I63.9 - Cerebral infarction, unspecified Status: Acute Plan Treatment is being continued as such, patient is receiving all his medication except anticoagulation because of the GI involvement Consult date: 03/28/22 Time Seen: 10:45 HPI: Zack Dai is a 72 year old male Has been admitted to intensive care with ongoing diagnosis of atrial fibrillation, congestive heart failure, coronary artery disease, COPD, and chronic kidney disease, with initial presentation of right-sided weakness in addition to documented supratherapeutic INR resulting in the GI bleed and complicated by the respiratory failure, patient had the CTA on initial presentation which documented 80% stenosis of the proximal right internal carotid artery in addition to 55% stenosis of proximal left internal carotid artery and severe stenosis of the left internal carotid artery extending into the cavernous segment of the aorta since then he has been seen by the wire spinner income tax consultant and followed by the neurologist as well and the treatment has been continued as such most recent chest x-ray showed small right pleural effusion and atelectasis versus pneumonia in addition to the stable cardiomegaly recently has undergone ultrasound-guided thoracentesis with 1000cc of clear yellow fluid taken out and his most recent CBCs stable PMFSH Past Medical History Medical History Abdominal distension Alcohol abuse Asbestosis Atrial fibrillation with rapid ventricular response BMI 34.0-34.9,adult BMI over 35 Chronic hypercapnic respiratory failure COPD (chronic obstructive pulmonary disease) COPD (chronic obstructive pulmonary disease) with emphysema Coronary artery disease Followed by Dr. Hill Encounter for immunization (04/03/15) Essential hypertension History of ventricular fibrillation VFib arrest during cardiac catheterization December 2018 and subsequent cardiogenic shock cardiac in her aortic balloon pump emergent echo demonstrating EF of 35% Hypercholesterolemia Ileus, unspecified Irritation of eye Irritation of left eye Lumbar spondylosis with myelopathy Paroxysmal atrial fibrillation Restless leg STEMI (ST elevation myocardial infarction) Tobacco use Surgical History Surgical History History of cardiac catheterization December 2018: High-grade stenosis of left main coronary, moderate to severe diffuse disease of proximal to mid LAD, high-grade eccentric ulcerated plaque in the mid segment of the dominant RCA. During catheterization the patient went into VFib arrest much shock x1 Hx of CABG CABG with [place] to LAD, left radial artery to OM 2, reverse saphenous vein graft 2 p.o. be of RCA performed by Dr. Worrlel December 2019 at [facility]. Family History Family History Mother Bone cancer Father Alcoholism Sibling Healthy adult male 62 years old Social History Social History Social History: 48 years. They have 4 children who reportedly healthy. He is a former smoker at least a pack of cigarettes per day for about 42 years. He used to drink alcohol quite heavily and drink at least a 10 pack a day until his heart attack in December of 2018. He denies any illicit substance use. 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 Primary care physician: Dr. Thomas Garza Code status: Full code Surrogate decision maker: Smoking packs per day: 0.5 Smoking cigarettes per day: 10.0 Years smoked: 40 Smoking pack-years: 20.00
[2022-03-28 11:17] LABS: Glucose Point of Care 145 mg/dl (65-105)
--- NOTE | 2022-03-28 12:16 | PCFNICU ---
ICU Rounding Note: Pt current nutrition is Minced and Moist, Level 5 with Moderately Thick liquids, Level 3. Last recorded weight is 122.5 kg. Bowel Motility:+BM reported 03/28 Labs Reviewed:Glu 128, GFR 46, BUN 28, Alb 2.9,Na 134 Meds Noted:Protonix, Synthroid, Zosyn, Lasix, Lopressor. Skin: WNL Additional Notes: Patient tolerating diet. Speech eval today for further recommendations. Thoracentesis 03/27 removed 1000 ml. Following daily in ICU rounds.
--- NOTE | 2022-03-28 14:25 | PM.IMPN ---
Progress Note: A&P Assessment and Plan (1) Acute on chronic respiratory failure with hypoxia and hypercapnia: Code(s): J96.21 - Acute and chronic respiratory failure with hypoxia; J96.22 - Acute and chronic respiratory failure with hypercapnia Status: Acute Assessment and Plan: Acute on chronic hypercapnic respiratory failure likely secondary to COPD exacerbation, CHF, stroke, pneumonia -patient could have felt weak because of hypercapnia, possible stroke, anemia -patient on BiPAP initially was and 25/11 which was switched to 29/11, repeat ABGs seem to be improving - 03/21 -patient has been switched to Vapotherm (high velocity), repeat ABGs much improved, continue patient on Vapotherm Patient was switched to BiPAP for increased work of breathing at night - 03/22 back on Vapotherm and maintaining saturation - 03/23 wore BiPAP overnight and now is going to be transition to Vapotherm. Will continue trying to use Vapotherm during the day and BiPAP at night - 03/24 continue BiPAP at night/prn and Vapotherm during the day 03/25 -no significant changes status. Continue BiPAP at night and p.r.n. Vapotherm during the day. Continue diuretics -continue bronchodilators, -continued Budesonide nebulizer -status post short course of Solu-Medrol -continue ceftriaxone and azithromycin (03/19) for a 7 day course -patient also has congestive heart failure and Lasix will be continued. Continue b.i.d. dosing -respiratory status continues improve. -discussed with pulmonology, he is seen in the Pulmonary Clinic, requires AVAPS while he is sleeping. -patient tolerating high-flow nasal cannula with 2-3 L oxygen when awake, he is placed on noninvasive ventilation with AVAPS setting on his home trilogy machine -03/27: ultrasound guided right-sided thoracentesis by intervention Radiology with removal of 1 L of clear fluid -Zosyn and vancomycin on 03/26/2022 worsening chest x-ray and pleural effusion, MRSA screen is pending, discontinue Zosyn and vancomycin today on 03/28 (2) Acute CVA (cerebrovascular accident): Code(s): I63.9 - Cerebral infarction, unspecified Status: Acute Assessment and Plan: Patient presented with generalized weakness on 03/18/2022, brain CT on admission showed age indeterminate small right cerebellar infarct which is new since 10/16/2021, several unchanged small infarcts in the bilateral occipital lobes, left frontal lobe, left cerebral hemisphere and couple of small lacunar infarcts at the bilateral basal ganglia. Chronic age-related changes -CTA head and neck 03/18/2022: 80% stenosis of the proximal right internal carotid artery relative to normal distal artery lumen diameter (NASCET criteria).. 55% stenosis of the proximal left internal carotid artery relative to normal distal artery lumen diameter.? Severe stenosis of the left internal carotid artery extending into the cavernous segment of the aorta.:? Mild stenosis of the right internal carotid artery at the cavernous sinus. Evaluation is limited by significant motion artifact. Mild stenosis at the origin of both subclavian arteries. The ER physician had called Neurology had [facility], patient has been accepted awaiting bed -neurology consulted, recommended Lipitor 80 mg q.h.s., - echocardiogram with bubble study showed no shunting -patient had repeat bedside swallow evaluation by speech therapy done 03/21 and was started on modified diet -MRI once patient is more stable respiratory clay -he has not been on any antiplatelet agent due to anemia and suspected blood loss. His hemoglobin has been stable. Continue aspirin PT/OT to evaluate the patient, increase activity (3) COPD (chronic obstructive pulmonary disease): Code(s): J44.9 - Chronic obstructive pulmonary disease, unspecified Status: Acute Assessment and Plan: As above (4) Acute anemia: Code(s): D64.9 - Anemia, unspecified Status: Acute Assessment and Plan: Anemi
--- NOTE | 2022-03-28 15:07 | PC.NURSE ---
This patient, Zack Dai, was transferred to [ [facility]2] on 03/28/22 at 1507. Personal belongings sent with patient. Report given to [ EMMANUEL Chanel @[id number]]. Appropriate documentation sent with patient.
[2022-03-28 16:29] LABS: Glucose Point of Care 157 mg/dl (65-105)
[2022-03-28] MEDS: QUEtiapine FUMARATE 25 MG TABLET PO (21:43)
[2022-03-29] VITALS (18 sets, daily range): BP systolic 115–124; BP diastolic 55–76; PULSE 78–100; RESP 16–21; TEMP 35.9–36.7; O2SAT 90–98
[2022-03-29] MEDS: IPRATROPIUM BR 0.02% INH SOLN 0.5 MG/2.5 ML VIAL INHALATION ×4 (05:02→21:13)
[2022-03-29] MEDS: ALBUTEROL SULFATE NEB 2.5 MG/3 ML INH INHALATION ×4 (05:03→21:13)
[2022-03-29] MEDS: LEVOTHYROXINE SODIUM INJ 100 MCG/5 ML VIAL 25 MCG IV PUSH (05:45)
[2022-03-29] MEDS: CENTRAL LINE FLUSH 10 ML IV PUSH ×3 (05:45→20:49)
[2022-03-29] MEDS: ACETAMINOPHEN ELIXIR 325 MG/10.15 ML UDC 650 MG PO (05:45)
[2022-03-29 07:55] LABS: Glucose Point of Care 130 mg/dl (65-105)
[2022-03-29] MEDS: METOPROLOL TARTRATE 50 MG TAB PO ×2 (09:56→20:48)
[2022-03-29] MEDS: ATORVASTATIN 40 MG TABLET 80 MG PO (09:56)
[2022-03-29] MEDS: ASPIRIN 81 MG ENTERIC TABLET PO (09:56)
[2022-03-29] MEDS: AMIODARONE HCL 200 MG TABLET PO (09:57)
[2022-03-29] MEDS: INSULIN GLARGINE (*BKC) 100 UNITS/ML 10 UNITS SUB-Q (09:57)
[2022-03-29] MEDS: ENOXAPARIN 40 MG/0.4 ML SYRINGE SUB-Q (09:57)
[2022-03-29] MEDS: PANTOPRAZOLE SODIUM IV 40 MG VIAL IV PUSH ×2 (09:58→20:48)
--- NOTE | 2022-03-29 11:22 | PM.PNPUL ---
Progress Note: A&P Assessment and Plan (1) COPD (chronic obstructive pulmonary disease): Code(s): J44.9 - Chronic obstructive pulmonary disease, unspecified Status: Acute Assessment and Plan: ?Patient with COPD,? 52 pack years, quit 2019,? mild paraseptal apical predominant emphysema on his CT scan,?? I have no PFTs.?? Patient with chronic hypercarbic and hypoxemic respiratory failure? on home noninvasive ventilator with the AVAPS-AE mode and on 1 L at rest, 4 L with exertion and 4 L with sleep.? he is maintained on nebulized Brovana, ipratropium and budesonide. 03/26?? Patient has no wheezing and states that he is breathing 75% back to his baseline.? He has no fever, chills, cough, hemoptysis and produces 3-4 phlegm is a a day currently. ? Patient finished 5 days of Solu-Medrol 60 mg IV this morning.?? I will continue albuterol 2.5 mg nebulized q.4 hours, ipratropium 0.5 mg nebulized q.4 hours and budesonide 0.5 mg q.12 hours. ? Goal saturation 90-94%.? Currently he is on high-flow nasal cannula? 40 L and 35% FiO2 with saturations 91%.? He is awake and communicative and we will see if he can be transitioned to high-flow nasal cannula 15 L. ?other etiologies for his worsening respiratory status include fluid overload, right pleural effusion, pneumonia and obesity with atelectasis.?? On 03/24/2022 patient was started on Lasix 40 IV q.12 hours.? Patient diuresed 3.1 L on 03/25 and I agree with this diuresis.? I would perform ultrasound-guided thoracentesis of the right? thorax.? I will check coags to make sure they are adequate.? The patient has finished 7 days of azithromycin and ceftriaxone from 03/19 through 03 26 and he was started on vancomycin and Zosyn on 03/26.? This was started for the possibility of a hospital-acquired resistant pneumonia.?? MRSA swab has been sent.?? Of note the patient was COVID and influenza negative on admission.? Will deescalate once he is clinically stable. 03/27 Patient wore the hospital noninvasive ventilator with the AVAPS mode rate of 18, tidal volume 550, EPAP 8, minimal inspiratory pressure 9, maximal inspiratory pressure 25, inspiratory time 1.0, rise a 5 which is are slowest, 35% FiO2. he said these settings felt similar to his home machine. Currently the patient is on BiPAP. Says he is in no respiratory distress and that he is doing well. He has no wheezing on exam. His creatinine is 1.0, white blood cell count 11.5, -2.1 5 L yesterday cumulative -7.9 L since admission. Scheduled for ultrasound-guided thoracentesis of the right lung later in the day. Continue albuterol, ipratropium and budesonide nebulizers (he is on home brovana, budesonide and ipratroprium nebs). Day 2 vanc and Zosyn. Await ultrasound-guided thoracentesis to look for infection prior to deescalation. 03/28 Currently he states he is breathing close to his normal. He is currently on 2 L nasal cannula saturations 96%. His creatinine increased to 1.50 and his Lasix has been held. His white blood cell count is 10.7. patient with no evidence of healthcare associated pneumonia no evidence of empyema on his right pleural fluid and will discontinue vancomycin and Zosyn at this time. Continue albuterol, ipratropium and budesonide nebulizers. Aggressive physical therapy. 03/29 patient transferred out of the ICU. Patient wears home noninvasive ventilator with the AVAPS mode with 4 L bleed in and said he did well. Currently states he is breathing very close to his baseline. Currently is on 2 L nasal cannula with saturations 93%. White blood cell count 10.7, creatinine 1.50. Patient had an overnight oximetry on his home noninvasive ventilator with 4 L bleed in and is average saturation was 97%, low saturation 90%, time with saturation less than or equal to 88% was 0.0 minutes. No wheezing on exam. While he is in hospital continue albuterol and ipratropium nebulizers q.4 hours, budesonide 0.5 mg nebulized b.i.d. Patient is
[2022-03-29 11:58] LABS: Glucose Point of Care 195 mg/dl (65-105)
[2022-03-29 17:02] LABS: Glucose Point of Care 203 mg/dl (65-105)
[2022-03-29 19:56] LABS: Glucose Pleural Fluid 237 mg/dL; LDH Pleural Fluid 84 U/L; Total Protein Pleural Fluid <3.0 g/dL
[2022-03-29] MEDS: QUEtiapine FUMARATE 25 MG TABLET PO (20:48)
[2022-03-29 21:11] LABS: Glucose Point of Care 220 mg/dl (65-105)
[2022-03-29] MEDS: BUDESONIDE RESPULE NEB 0.5 MG/2 ML AMP INHALATION (21:13)
[2022-03-30] VITALS (16 sets, daily range): BP systolic 108–117; BP diastolic 60–70; PULSE 75–105; RESP 14–19; TEMP 36.1–36.6; O2SAT 94–100
[2022-03-30] MEDS: ALBUTEROL SULFATE NEB 2.5 MG/3 ML INH INHALATION ×5 (03:44→20:18)
[2022-03-30] MEDS: IPRATROPIUM BR 0.02% INH SOLN 0.5 MG/2.5 ML VIAL INHALATION ×5 (03:44→20:19)
[2022-03-30] MEDS: LEVOTHYROXINE SODIUM INJ 100 MCG/5 ML VIAL 25 MCG IV PUSH (05:32)
[2022-03-30] MEDS: CENTRAL LINE FLUSH 10 ML IV PUSH ×3 (05:33→21:34)
[2022-03-30 06:17] LABS: Eosinophils Absolute Auto 0.3 K/mm3 (0-0.3); Eosinophils Percent Auto 3.9 % (0-4.4); Hematocrit 29.7 % (42.0-52.0); Hemoglobin 8.6 g/dL (14.0-18.0); Immature Granulocyte Absolute 0.05 K/mm3 (0.00-0.031); Immature Granulocyte Percent A 0.6 % (0-0.5); Lymphocytes Absolute Auto 1.15 K/mm3 (0.9-3.2); Lymphocytes Percent Auto 14.4 % (18.3-44.2); Mean Corpuscular Hemoglobin 22.5 pg (26-34); Mean Corpuscular Volume 77.7 fl (80-100); Mean Platelet Volume 10.1 fl (7.4-10.4); Monocytes Absolute Auto 0.7 K/mm3 (0.1-0.6); Monocytes Percent Auto 8.9 % (2.6-8.5); Neutrophils Absolute Auto 5.7 K/mm3 (1.3-6.7); Neutrophils Percent Auto 72.2 % (45.5-73.1); Platelet Count Result 277 k/mm3 (150-375); Red Blood Count 3.82 M/mm3 (4.6-6.20); Red Cell Distribution Width 22.4 % (11.5-14.5)
[2022-03-30 06:40] LABS: Alanine Aminotransferase 25 U/L (6-50); Albumin Level 3.1 g/dL (3.5-5.1); Alkaline Phosphatase 84 U/L (38-126); Anion Gap 3 mmol/L (8-16); Aspartate Amino Transferase 28 U/L (17-59); Blood Urea Nitrogen 16 mg/dL (9-20); Calcium 7.9 mg/dL (8.4-10.2); Carbon Dioxide 39 mmol/L (22-30); Chloride 92 mmol/L (98-107); Estimated CRCL calculation 81 ml/min; Estimated Glomerular Filt Rate > 60; Glucose 123 mg/dL (65-110); Magnesium 2.3 mg/dL (1.6-2.3); Potassium 3.4 mmol/L (3.4-5.0); Sodium 134 mmol/L (137-145)
[2022-03-30 07:43] LABS: Platelet Estimate Adequate (Adequate); Poikilocytosis 2+ (NORMAL)
[2022-03-30 07:44] LABS: Acanthocytes 1+ (NORMAL); Anisocytosis 1+ (NORMAL); Schistocytes 1+ (NORMAL)
[2022-03-30 07:45] LABS: Ovalocytes 1+ (NORMAL)
[2022-03-30 08:21] LABS: Glucose Point of Care 130 mg/dl (65-105)
[2022-03-30] MEDS: BUDESONIDE RESPULE NEB 0.5 MG/2 ML AMP INHALATION ×2 (08:24→20:19)
[2022-03-30] MEDS: ATORVASTATIN 40 MG TABLET 80 MG PO (09:10)
[2022-03-30] MEDS: ENOXAPARIN 40 MG/0.4 ML SYRINGE SUB-Q (09:10)
[2022-03-30] MEDS: METOPROLOL TARTRATE 50 MG TAB PO ×2 (09:10→21:34)
[2022-03-30] MEDS: INSULIN GLARGINE (*BKC) 100 UNITS/ML 10 UNITS SUB-Q (09:12)
[2022-03-30] MEDS: AMIODARONE HCL 200 MG TABLET PO (09:13)
[2022-03-30] MEDS: PANTOPRAZOLE SODIUM IV 40 MG VIAL IV PUSH ×2 (09:13→21:34)
[2022-03-30] MEDS: ASPIRIN 81 MG ENTERIC TABLET PO (09:13)
[2022-03-30 11:43] LABS: Glucose Point of Care 182 mg/dl (65-105)
--- NOTE | 2022-03-30 12:20 | PM.IMPN ---
Progress Note: A&P Assessment and Plan (1) Acute on chronic respiratory failure with hypoxia and hypercapnia: Code(s): J96.21 - Acute and chronic respiratory failure with hypoxia; J96.22 - Acute and chronic respiratory failure with hypercapnia Status: Acute Assessment and Plan: Acute on chronic hypercapnic respiratory failure likely secondary to COPD exacerbation, CHF, stroke, pneumonia -patient could have felt weak because of hypercapnia, possible stroke, anemia -patient on BiPAP initially was and 25/11 which was switched to 29/11, repeat ABGs seem to be improving - 03/21 -patient has been switched to Vapotherm (high velocity), repeat ABGs much improved, continue patient on Vapotherm Patient was switched to BiPAP for increased work of breathing at night - 03/22 back on Vapotherm and maintaining saturation - 03/23 wore BiPAP overnight and now is going to be transition to Vapotherm. Will continue trying to use Vapotherm during the day and BiPAP at night - 03/24 continue BiPAP at night/prn and Vapotherm during the day 03/25 -no significant changes status. Continue BiPAP at night and p.r.n. Vapotherm during the day. Continue diuretics -continue bronchodilators, -continued Budesonide nebulizer -status post short course of Solu-Medrol -finished ceftriaxone and azithromycin (03/19) for a 7 day course -patient also has congestive heart failure and Lasix will be continued. Continue b.i.d. dosing -respiratory status continues improve. -discussed with pulmonology, he is seen in the Pulmonary Clinic, requires AVAPS while he is sleeping. -patient tolerating high-flow nasal cannula with 2-3 L oxygen when awake, he is placed on noninvasive ventilation with AVAPS setting on his home trilogy machine -03/27: ultrasound guided right-sided thoracentesis by intervention Radiology with removal of 1 L of clear fluid -Zosyn and vancomycin on 03/26/2022 worsening chest x-ray and pleural effusion, MRSA screen is pending, discontinue Zosyn and vancomycin on 03/28 Discussed with Pulmonary back to his baseline respiratory status (2) Acute CVA (cerebrovascular accident): Code(s): I63.9 - Cerebral infarction, unspecified Status: Acute Assessment and Plan: Patient presented with generalized weakness on 03/18/2022, brain CT on admission showed age indeterminate small right cerebellar infarct which is new since 10/16/2021, several unchanged small infarcts in the bilateral occipital lobes, left frontal lobe, left cerebral hemisphere and couple of small lacunar infarcts at the bilateral basal ganglia. Chronic age-related changes -CTA head and neck 03/18/2022: 80% stenosis of the proximal right internal carotid artery relative to normal distal artery lumen diameter (NASCET criteria).. 55% stenosis of the proximal left internal carotid artery relative to normal distal artery lumen diameter.? Severe stenosis of the left internal carotid artery extending into the cavernous segment of the aorta.:? Mild stenosis of the right internal carotid artery at the cavernous sinus. Evaluation is limited by significant motion artifact. Mild stenosis at the origin of both subclavian arteries. The ER physician had called Neurology had [facility], patient has been accepted awaiting bed -neurology consulted, recommended Lipitor 80 mg q.h.s., - echocardiogram with bubble study showed no shunting -patient had repeat bedside swallow evaluation by speech therapy done 03/21 and was started on modified diet -MRI once patient is more stable respiratory clay -he has not been on any antiplatelet agent due to anemia and suspected blood loss. His hemoglobin has been stable. Continue aspirin PT/OT to evaluate the patient, increase activity (3) COPD (chronic obstructive pulmonary disease): Code(s): J44.9 - Chronic obstructive pulmonary disease, unspecified Status: Acute Assessment and Plan: As above (4) Acute anemia: Code(s): D64.9 - Anemia, unspecif
[2022-03-30] MEDS: rOPINIRole HCL 0.5 MG TABLET PO ×2 (13:34→17:31)
--- NOTE | 2022-03-30 14:10 | WPDNEUROPN ---
Subjective Date/time seen: 03/30/22 14:10 Interval history: 72 years old with ongoing diagnosis of atrial fibrillation with congestive heart failure and coronary artery disease in addition to COPD and chronic renal disease as well his head and neck CTA documented 80% stenosis of the proximal right internal carotid artery in addition to 55% stenosis of proximal left internal carotid artery and severe stenosis of the left internal carotid artery extending into the cavernous segment of the aorta and mild stenosis of the right internal carotid artery at the cavernous sinus also mild stenosis at the origin of the both subclavian arteries. Patient is awaiting the transferred to the tertiary care in the meantime he is receiving aspirin 81 mg daily at the transfer has been late will add the Plavix 75 mg daily Objective Data Vital Signs Vital Signs: Vital Signs - 24 hr 03/29/22 17:24 03/29/22 20:48 03/29/22 21:14 Temperature Pulse Rate 90 90 84 Respiratory Rate 20 20 Blood Pressure Pulse Oximetry Oxygen Delivery Oxygen Flow Rate 03/29/22 21:19 03/29/22 21:28 03/29/22 21:34 Temperature 36.6 C Pulse Rate 95 87 Respiratory Rate 20 20 Blood Pressure 124/76 Pulse Oximetry 96 98 Oxygen Delivery Nasal Cannula Oxygen Flow Rate 3 03/29/22 20:00 03/29/22 22:45 03/30/22 03:44 Temperature Pulse Rate 82 94 Respiratory Rate 21 H 19 Blood Pressure Pulse Oximetry 98 96 Oxygen Delivery Nasal Cannula Oxygen Flow Rate 2 03/30/22 03:47 03/30/22 06:00 03/30/22 08:25 Temperature 36.6 C Pulse Rate 94 95 93 Respiratory Rate 18 18 Blood Pressure 112/61 Pulse Oximetry 98 94 Oxygen Delivery Oxygen Flow Rate 03/30/22 09:10 03/30/22 09:13 03/30/22 09:10 Temperature Pulse Rate 80 80 Respiratory Rate Blood Pressure Pulse Oximetry Oxygen Delivery Nasal Cannula Oxygen Flow Rate 4 03/30/22 08:00 03/30/22 12:56 Temperature Pulse Rate 86 Respiratory Rate 18 Blood Pressure Pulse Oximetry 95 Oxygen Delivery Nasal Cannula Oxygen Flow Rate 2 Intake/Output Intake/Output: Intake & Output 03/27/22 03/28/22 03/29/22 03/30/22 23:59 23:59 23:59 23:59 Intake Total 1800 1260 1870 1162 Output Total 6400 2375 2750 1000 Balance -4600 -1115 -880 162 Meds/Results Medications: Active Medications Generic Name Dose Route Start Last Admin Trade Name Freq PRN Reason Stop Dose Admin Acetaminophen 650 mg 03/19/22 06:14 03/29/22 05:45 Acetaminophen Elixir 325 Mg/10.15 Ml Udc PO 650 mg Q4H PRN Administration Mild Pain (1-3) Or Fever Albuterol 2.5 mg 03/26/22 16:00 03/30/22 12:55 Albuterol Sulfate Neb 2.5 Mg/3 Ml Inh INHALATION 2.5 mg Q4HRT MAYKEL Administration Amiodarone HCl 200 mg 03/19/22 09:00 03/30/22 09:13 Amiodarone Hcl 200 Mg Tablet PO 200 mg DAILY MAYKEL Administration Aspirin 81 mg 03/23/22 10:35 03/30/22 09:13 Aspirin 81 Mg Enteric Tablet PO 81 mg QAM MAYKEL Administration Atorvastatin Calcium 80 mg 03/21/22 09:00 03/30/22 09:10 Atorvastatin 40 Mg Tablet PO 80 mg DAILY MAYKEL Administration Budesonide 0.5 mg 03/19/22 08:00 03/30/22 08:24 Budesonide Respule Neb 0.5 Mg/2 Ml Amp INHALATION 0.5 mg Q12HRT MAYKEL Administration Dextrose 12.5 gm 03/25/22 11:04 Dextrose 50% 25 Gm/50 Ml Syringe IV PUSH PRN PRN Hypoglycemia Protocol Enoxaparin Sodium 40 mg 03/25/22 09:00 03/30/22 09:10 Enoxaparin 40 Mg/0.4 Ml Syringe SUB-Q 40 mg DAILY MAYKEL Administration Furosemide 40 mg 03/30/22 17:00 Furosemide 40 Mg Tablet PO BID MAYKEL Glucagon 1 mg 03/25/22 11:04 Glucagon For Inj 1 Mg Vial IM PRN PRN Hypoglycemia Protocol Glucose 15 gm 03/25/22 11:04 Glucose Oral Gel 15 Gm Of Glucse In 37.5 Gm Tube PO PRN PRN Hypoglycemia Protocol Dextrose 1,000 mls @ 100 mls/hr 03/25/22 11:04 Dextrose 5% 1,000 Ml IVPB
[2022-03-30 16:36] LABS: Glucose Point of Care 215 mg/dl (65-105)
[2022-03-30] MEDS: FUROSEMIDE 40 MG TABLET PO (17:31)
[2022-03-30] MEDS: INSULIN ASPART (*BKC) 100 UNITS/ML SUB-Q (17:31)
[2022-03-30] MEDS: QUEtiapine FUMARATE 25 MG TABLET PO (21:34)
[2022-03-30] MEDS: ACETAMINOPHEN ELIXIR 325 MG/10.15 ML UDC 650 MG PO (21:48)
[2022-03-30 21:56] LABS: Glucose Point of Care 261 mg/dl (65-105)
[2022-03-31] VITALS (17 sets, daily range): BP systolic 102–121; BP diastolic 45–59; PULSE 75–96; RESP 16–22; TEMP 36.1–36.3; O2SAT 93–100
[2022-03-31] MEDS: IPRATROPIUM BR 0.02% INH SOLN 0.5 MG/2.5 ML VIAL INHALATION ×6 (00:07→23:28)
[2022-03-31] MEDS: ALBUTEROL SULFATE NEB 2.5 MG/3 ML INH INHALATION ×6 (00:07→23:28)
[2022-03-31] MEDS: LEVOTHYROXINE SODIUM 50 MCG TABLET PO (05:37)
[2022-03-31 06:24] LABS: Basophils Percent Auto 0.1 % (0.2-1.2); Eosinophils Absolute Auto 0.3 K/mm3 (0-0.3); Eosinophils Percent Auto 3.8 % (0-4.4); Hematocrit 26.1 % (42.0-52.0); Hemoglobin 7.6 g/dL (14.0-18.0); Immature Granulocyte Absolute 0.03 K/mm3 (0.00-0.031); Immature Granulocyte Percent A 0.4 % (0-0.5); Lymphocytes Percent Auto 16.3 % (18.3-44.2); Mean Corpuscular HGB Conc 29.1 g/dl (32-36); Mean Corpuscular Volume 78.9 fl (80-100); Mean Platelet Volume 10.1 fl (7.4-10.4); Monocytes Absolute Auto 0.7 K/mm3 (0.1-0.6); Monocytes Percent Auto 10.2 % (2.6-8.5); Neutrophils Absolute Auto 4.7 K/mm3 (1.3-6.7); Neutrophils Percent Auto 69.2 % (45.5-73.1); Platelet Count Result 251 k/mm3 (150-375); Red Blood Count 3.31 M/mm3 (4.6-6.20); Red Cell Distribution Width 22.8 % (11.5-14.5); White Blood Count 6.8 K/mm3 (4.5-10.0)
--- NOTE | 2022-03-31 06:32 | PCRCNOTE ---
Window of time for administration has passed. See next scheduled administration.
[2022-03-31 06:43] LABS: Alanine Aminotransferase 22 U/L (6-50); Alkaline Phosphatase 82 U/L (38-126); Anion Gap 1 mmol/L (8-16); Aspartate Amino Transferase 25 U/L (17-59); Bilirubin,Total 0.6 mg/dL (0.2-1.3); Blood Urea Nitrogen 16 mg/dL (9-20); Calcium 7.7 mg/dL (8.4-10.2); Carbon Dioxide 38 mmol/L (22-30); Chloride 90 mmol/L (98-107); Estimated CRCL calculation 74 ml/min; Estimated Glomerular Filt Rate > 60; Glucose 124 mg/dL (65-110); Magnesium 2.3 mg/dL (1.6-2.3); Potassium 3.3 mmol/L (3.4-5.0); Sodium 129 mmol/L (137-145)
[2022-03-31 07:43] LABS: Hypochromasia 2+ (NORMAL); Platelet Estimate Adequate (Adequate); Schistocytes Rare (NORMAL)
[2022-03-31 07:44] LABS: Anisocytosis 1+ (NORMAL); Burr Cells 1+ (NORMAL); Poikilocytosis 1+ (NORMAL)
[2022-03-31 07:45] LABS: Ovalocytes 1+ (NORMAL)
[2022-03-31] MEDS: PANTOPRAZOLE SODIUM IV 40 MG VIAL IV PUSH ×2 (08:10→21:30)
[2022-03-31] MEDS: rOPINIRole HCL 0.5 MG TABLET PO ×3 (08:10→17:47)
[2022-03-31] MEDS: FUROSEMIDE 40 MG TABLET PO ×2 (08:11→17:47)
[2022-03-31] MEDS: LOSARTAN POTASSIUM 25 MG TABLET PO (08:11)
[2022-03-31] MEDS: METOPROLOL TARTRATE 50 MG TAB PO ×2 (08:11→21:30)
[2022-03-31] MEDS: ATORVASTATIN 40 MG TABLET 80 MG PO (08:11)
[2022-03-31] MEDS: ENOXAPARIN 40 MG/0.4 ML SYRINGE SUB-Q (08:15)
[2022-03-31] MEDS: CLOPIDOGREL BISULFATE 75 MG TABLET PO (08:15)
[2022-03-31] MEDS: ASPIRIN 81 MG ENTERIC TABLET PO (08:15)
[2022-03-31] MEDS: AMIODARONE HCL 200 MG TABLET PO (08:15)
[2022-03-31] MEDS: INSULIN GLARGINE (*BKC) 100 UNITS/ML 10 UNITS SUB-Q (08:16)
[2022-03-31 08:43] LABS: Glucose Point of Care 128 mg/dl (65-105)
[2022-03-31 11:22] LABS: Glucose Point of Care 216 mg/dl (65-105)
--- NOTE | 2022-03-31 12:58 | PM.IMPN ---
Progress Note: A&P Assessment and Plan (1) Acute on chronic respiratory failure with hypoxia and hypercapnia: Code(s): J96.21 - Acute and chronic respiratory failure with hypoxia; J96.22 - Acute and chronic respiratory failure with hypercapnia Status: Acute Assessment and Plan: Acute on chronic hypercapnic respiratory failure likely secondary to COPD exacerbation, CHF, stroke, pneumonia -patient could have felt weak because of hypercapnia, possible stroke, anemia -patient on BiPAP initially was and 25/11 which was switched to 29/11, repeat ABGs seem to be improving - 03/21 -patient has been switched to Vapotherm (high velocity), repeat ABGs much improved, continue patient on Vapotherm Patient was switched to BiPAP for increased work of breathing at night - 03/22 back on Vapotherm and maintaining saturation - 03/23 wore BiPAP overnight and now is going to be transition to Vapotherm. Will continue trying to use Vapotherm during the day and BiPAP at night - 03/24 continue BiPAP at night/prn and Vapotherm during the day 03/25 -no significant changes status. Continue BiPAP at night and p.r.n. Vapotherm during the day. Continue diuretics -continue bronchodilators, -continued Budesonide nebulizer -status post short course of Solu-Medrol -finished ceftriaxone and azithromycin (03/19) for a 7 day course -patient also has congestive heart failure and Lasix will be continued. Continue b.i.d. dosing -respiratory status continues improve. -discussed with pulmonology, he is seen in the Pulmonary Clinic, requires AVAPS while he is sleeping. -patient tolerating high-flow nasal cannula with 2-3 L oxygen when awake, he is placed on noninvasive ventilation with AVAPS setting on his home trilogy machine -03/27: ultrasound guided right-sided thoracentesis by intervention Radiology with removal of 1 L of clear fluid -Zosyn and vancomycin on 03/26/2022 worsening chest x-ray and pleural effusion, MRSA screen is pending, discontinue Zosyn and vancomycin on 03/28 Discussed with Pulmonary back to his baseline respiratory status (2) Acute CVA (cerebrovascular accident): Code(s): I63.9 - Cerebral infarction, unspecified Status: Acute Assessment and Plan: Patient presented with generalized weakness on 03/18/2022, brain CT on admission showed age indeterminate small right cerebellar infarct which is new since 10/16/2021, several unchanged small infarcts in the bilateral occipital lobes, left frontal lobe, left cerebral hemisphere and couple of small lacunar infarcts at the bilateral basal ganglia. Chronic age-related changes -CTA head and neck 03/18/2022: 80% stenosis of the proximal right internal carotid artery relative to normal distal artery lumen diameter (NASCET criteria).. 55% stenosis of the proximal left internal carotid artery relative to normal distal artery lumen diameter.? Severe stenosis of the left internal carotid artery extending into the cavernous segment of the aorta.:? Mild stenosis of the right internal carotid artery at the cavernous sinus. Evaluation is limited by significant motion artifact. Mild stenosis at the origin of both subclavian arteries. The ER physician had called Neurology had [facility], patient has been accepted awaiting bed -neurology consulted, recommended Lipitor 80 mg q.h.s., - echocardiogram with bubble study showed no shunting -patient had repeat bedside swallow evaluation by speech therapy done 03/21 and was started on modified diet -MRI once patient is more stable respiratory clay -he has not been on any antiplatelet agent due to anemia and suspected blood loss. His hemoglobin has been stable. Continue aspirin PT/OT to evaluate the patient, increase activity Will plan for MRI brain today as his respiratory status is more stable (3) COPD (chronic obstructive pulmonary disease): Code(s): J44.9 - Chronic obstructive pulmonary disease, unspecified Status: Acute Assessment and Plan
[2022-03-31] MEDS: INSULIN ASPART (*BKC) 100 UNITS/ML SUB-Q (13:06)
[2022-03-31] MEDS: CENTRAL LINE FLUSH 10 ML IV PUSH ×2 (13:06→21:30)
[2022-03-31 16:50] LABS: Glucose Point of Care 130 mg/dl (65-105)
[2022-03-31] MEDS: BUDESONIDE RESPULE NEB 0.5 MG/2 ML AMP INHALATION (20:59)
[2022-03-31] MEDS: QUEtiapine FUMARATE 25 MG TABLET PO (21:30)
[2022-04-01] VITALS (14 sets, daily range): BP systolic 89–106; BP diastolic 40–49; PULSE 76–103; RESP 16–22; TEMP 36.2–36.9; O2SAT 90–100
[2022-04-01] MEDS: CENTRAL LINE FLUSH 10 ML IV PUSH ×3 (05:52→21:36)
[2022-04-01] MEDS: LEVOTHYROXINE SODIUM 50 MCG TABLET PO (05:52)
[2022-04-01 06:43] LABS: Eosinophils Absolute Auto 0.3 K/mm3 (0-0.3); Hemoglobin 7.5 g/dL (14.0-18.0); Immature Granulocyte Absolute 0.02 K/mm3 (0.00-0.031); Immature Granulocyte Percent A 0.3 % (0-0.5); Lymphocytes Absolute Auto 1.08 K/mm3 (0.9-3.2); Lymphocytes Percent Auto 14.7 % (18.3-44.2); Mean Corpuscular HGB Conc 28.8 g/dl (32-36); Mean Corpuscular Hemoglobin 22.9 pg (26-34); Mean Corpuscular Volume 79.5 fl (80-100); Mean Platelet Volume 10.5 fl (7.4-10.4); Monocytes Absolute Auto 0.6 K/mm3 (0.1-0.6); Monocytes Percent Auto 7.6 % (2.6-8.5); Neutrophils Absolute Auto 5.4 K/mm3 (1.3-6.7); Neutrophils Percent Auto 73.4 % (45.5-73.1); Platelet Count Result 256 k/mm3 (150-375); Red Blood Count 3.27 M/mm3 (4.6-6.20); White Blood Count 7.3 K/mm3 (4.5-10.0)
[2022-04-01 06:50] LABS: Alanine Aminotransferase 23 U/L (6-50); Albumin Level 3.1 g/dL (3.5-5.1); Alkaline Phosphatase 95 U/L (38-126); Anion Gap 0 mmol/L (8-16); Aspartate Amino Transferase 28 U/L (17-59); Bilirubin,Total 0.6 mg/dL (0.2-1.3); Blood Urea Nitrogen 17 mg/dL (9-20); Calcium 7.6 mg/dL (8.4-10.2); Carbon Dioxide 39 mmol/L (22-30); Chloride 90 mmol/L (98-107); Estimated CRCL calculation 62 ml/min; Estimated Glomerular Filt Rate 60; Glucose 122 mg/dL (65-110); Magnesium 2.1 mg/dL (1.6-2.3); Potassium 3.3 mmol/L (3.4-5.0); Sodium 129 mmol/L (137-145)
[2022-04-01] MEDS: PANTOPRAZOLE SODIUM IV 40 MG VIAL IV PUSH ×2 (08:23→21:35)
[2022-04-01] MEDS: ENOXAPARIN 40 MG/0.4 ML SYRINGE SUB-Q (08:23)
[2022-04-01] MEDS: AMIODARONE HCL 200 MG TABLET PO (08:24)
[2022-04-01] MEDS: rOPINIRole HCL 0.5 MG TABLET PO ×2 (08:24→12:38)
[2022-04-01] MEDS: ASPIRIN 81 MG ENTERIC TABLET PO (08:24)
[2022-04-01] MEDS: FUROSEMIDE 40 MG TABLET PO (08:24)
[2022-04-01] MEDS: CLOPIDOGREL BISULFATE 75 MG TABLET PO (08:25)
[2022-04-01] MEDS: ATORVASTATIN 40 MG TABLET 80 MG PO (08:25)
[2022-04-01] MEDS: LOSARTAN POTASSIUM 25 MG TABLET PO (08:25)
[2022-04-01] MEDS: METOPROLOL TARTRATE 50 MG TAB PO ×2 (08:26→21:35)
[2022-04-01] MEDS: ALBUTEROL SULFATE NEB 2.5 MG/3 ML INH INHALATION ×2 (08:29→21:42)
[2022-04-01] MEDS: IPRATROPIUM BR 0.02% INH SOLN 0.5 MG/2.5 ML VIAL INHALATION ×2 (08:30→21:42)
[2022-04-01 09:04] LABS: Glucose Point of Care 124 mg/dl (65-105)
[2022-04-01] MEDS: polyethylene glycoL 3350 17 GM POWD.PACK PO ×2 (09:34→21:34)
[2022-04-01] MEDS: POTASSIUM CHLORIDE 20 MEQ TABLET 40 MEQ PO (09:34)
[2022-04-01] MEDS: INSULIN GLARGINE (*BKC) 100 UNITS/ML 10 UNITS SUB-Q (09:34)
--- NOTE | 2022-04-01 10:00 | PCOTNOTE ---
Attempted to see patient this am, however patient was eating at this time.
--- NOTE | 2022-04-01 10:14 | PCNFU ---
Nutrition Follow-Up Complete: Potential for inadequate oral intake related to loss of appetite as evidenced by acute illness, labs Goal: Adequate PO intake at least 75% meals - Meeting goal Pt current nutrition is Soft and bite sized level 6. Ensure Compact BID. Intakes 100%. Nutrition recommendation: Continue current diet order and supplements. Continue same goal. Last recorded weight is 102.7 kg. Bowel Motility: 0 BMs charted Labs Reviewed: Hgb 7.5, Hct 26, Alb 3.1, Na 129, K+ 3.3, Glu 124 Meds Noted: Protonix, metoprolol Skin: WNL Additional Notes: Contonie to follow every 7 days for intakes, discharge, labs, etc.
[2022-04-01 10:26] LABS: Anisocytosis 2+ (NORMAL); Ovalocytes 1+ (NORMAL); Platelet Estimate Adequate (Adequate); Schistocytes None Seen (NORMAL)
[2022-04-01 10:27] LABS: Target Cells 1+ (NORMAL)
[2022-04-01 11:30] LABS: Glucose Point of Care 208 mg/dl (65-105)
[2022-04-01] MEDS: INSULIN ASPART (*BKC) 100 UNITS/ML SUB-Q (12:38)
[2022-04-01 17:37] LABS: Glucose Point of Care 138 mg/dl (65-105)
[2022-04-01] MEDS: QUEtiapine FUMARATE 25 MG TABLET PO (21:35)
[2022-04-01] MEDS: BUDESONIDE RESPULE NEB 0.5 MG/2 ML AMP INHALATION (21:42)
[2022-04-01 21:47] LABS: Glucose Point of Care 205 mg/dl (65-105)
[2022-04-02] VITALS (17 sets, daily range): BP systolic 89–117; BP diastolic 46–62; PULSE 80–89; RESP 16–25; TEMP 36.1–36.6; O2SAT 93–100
[2022-04-02] MEDS: IPRATROPIUM BR 0.02% INH SOLN 0.5 MG/2.5 ML VIAL INHALATION ×4 (04:45→21:03)
[2022-04-02] MEDS: ALBUTEROL SULFATE NEB 2.5 MG/3 ML INH INHALATION ×4 (04:45→21:02)
[2022-04-02] MEDS: ACETAMINOPHEN ELIXIR 325 MG/10.15 ML UDC 650 MG PO (05:09)
[2022-04-02] MEDS: CENTRAL LINE FLUSH 10 ML IV PUSH ×3 (05:09→21:03)
[2022-04-02] MEDS: LEVOTHYROXINE SODIUM 50 MCG TABLET PO (05:10)
[2022-04-02 06:26] LABS: Basophils Percent Auto 0.3 % (0.2-1.2); Eosinophils Absolute Auto 0.3 K/mm3 (0-0.3); Eosinophils Percent Auto 4.3 % (0-4.4); Hematocrit 25.4 % (42.0-52.0); Hemoglobin 7.2 g/dL (14.0-18.0); Immature Granulocyte Absolute 0.03 K/mm3 (0.00-0.031); Immature Granulocyte Percent A 0.5 % (0-0.5); Lymphocytes Absolute Auto 0.94 K/mm3 (0.9-3.2); Lymphocytes Percent Auto 15.1 % (18.3-44.2); Mean Corpuscular HGB Conc 28.3 g/dl (32-36); Mean Corpuscular Hemoglobin 22.3 pg (26-34); Mean Corpuscular Volume 78.6 fl (80-100); Mean Platelet Volume 10.6 fl (7.4-10.4); Monocytes Absolute Auto 0.6 K/mm3 (0.1-0.6); Monocytes Percent Auto 9.9 % (2.6-8.5); Neutrophils Absolute Auto 4.4 K/mm3 (1.3-6.7); Neutrophils Percent Auto 69.9 % (45.5-73.1); Platelet Count Result 244 k/mm3 (150-375); Red Blood Count 3.23 M/mm3 (4.6-6.20); Red Cell Distribution Width 23.3 % (11.5-14.5); White Blood Count 6.2 K/mm3 (4.5-10.0)
[2022-04-02 06:54] LABS: Alanine Aminotransferase 22 U/L (6-50); Albumin Level 3.1 g/dL (3.5-5.1); Alkaline Phosphatase 91 U/L (38-126); Anion Gap 0 mmol/L (8-16); Aspartate Amino Transferase 28 U/L (17-59); Bilirubin,Total 0.6 mg/dL (0.2-1.3); Blood Urea Nitrogen 16 mg/dL (9-20); Calcium 7.9 mg/dL (8.4-10.2); Carbon Dioxide 39 mmol/L (22-30); Chloride 92 mmol/L (98-107); Estimated CRCL calculation 68 ml/min; Estimated Glomerular Filt Rate > 60; Glucose 111 mg/dL (65-110); Magnesium 2.2 mg/dL (1.6-2.3); Potassium 3.9 mmol/L (3.4-5.0); Sodium 131 mmol/L (137-145)
[2022-04-02 08:01] LABS: Hypochromasia 1+ (NORMAL); Platelet Estimate Adequate (Adequate)
[2022-04-02 08:02] LABS: Acanthocytes 1+ (NORMAL); Microcytosis 1+ (NORMAL); Ovalocytes 1+ (NORMAL); Schistocytes None Seen (NORMAL)
[2022-04-02 08:09] LABS: Glucose Point of Care 115 mg/dl (65-105)
[2022-04-02] MEDS: ENOXAPARIN 40 MG/0.4 ML SYRINGE SUB-Q (08:17)
[2022-04-02] MEDS: ASPIRIN 81 MG ENTERIC TABLET PO (08:17)
[2022-04-02] MEDS: CLOPIDOGREL BISULFATE 75 MG TABLET PO (08:18)
[2022-04-02] MEDS: ATORVASTATIN 40 MG TABLET 80 MG PO (08:18)
[2022-04-02] MEDS: PANTOPRAZOLE SODIUM IV 40 MG VIAL IV PUSH ×2 (08:18→20:35)
[2022-04-02] MEDS: METOPROLOL TARTRATE 50 MG TAB PO ×2 (08:18→20:35)
[2022-04-02] MEDS: LOSARTAN POTASSIUM 25 MG TABLET PO (08:18)
[2022-04-02] MEDS: FUROSEMIDE 40 MG TABLET PO ×2 (08:18→16:15)
[2022-04-02] MEDS: rOPINIRole HCL 0.5 MG TABLET PO ×3 (08:18→16:15)
[2022-04-02] MEDS: AMIODARONE HCL 200 MG TABLET PO (08:18)
[2022-04-02] MEDS: INSULIN GLARGINE (*BKC) 100 UNITS/ML 10 UNITS SUB-Q (08:19)
--- NOTE | 2022-04-02 09:31 | WPDNEUROPN ---
Progress Note: A&P Assessment and Plan (1) Atrial fibrillation: Code(s): I48.91 - Unspecified atrial fibrillation Status: Acute (2) Acute CVA (cerebrovascular accident): Code(s): I63.9 - Cerebral infarction, unspecified Status: Acute (3) Acute on chronic respiratory failure with hypoxia and hypercapnia: Code(s): J96.21 - Acute and chronic respiratory failure with hypoxia; J96.22 - Acute and chronic respiratory failure with hypercapnia Status: Acute (4) Supratherapeutic INR: Code(s): R79.1 - Abnormal coagulation profile Status: Acute (5) Acute gastrointestinal bleeding: Code(s): K92.2 - Gastrointestinal hemorrhage, unspecified Status: Acute Plan Zack Dai is a 72 year old male with a history of atrial fibrillation, CHF, CAD, COPD, CKD who presented due to right sided weakness in the setting of supratherapeutic INR resulting in GI bleeding, complicated by respiratory failure. Concern for acute stroke given new focal findings of R sided weakness. Anticoagulation is currently being held due to risk of bleeding. MRI confirmed new stroke in the R cerebellum and L frontoparietal region. Etiology of infarct is likely cardioembolic -- given bilateral involvement as well as involvement of posterior and anterior circulation, vs large vessel disease (has significant stenosis bilaterally). Surface echo was unrevealing. - Currently on ASA 81mg, discontinue Plavix - Start Eliquis for anticoagulation, will need close monitoring for bleeding - Recommend transfer to [facility] for further evaluation/intervention of carotid stenosis - Increased Lipitor to 80mg daily Subjective Date/time seen: 04/02/22 09:31 Interval history: Zack Dai is a 72 year old male with a history of atrial fibrillation, CHF, CAD, COPD, CKD who presented initially due to weakness. Patient had not been himself, per his , for past few weeks. There were concerns about him hallucinating and being confused, as well as increased work of breathing. On the day of admission, patient was walking down stairs, but at some point became to weak to walk. noted that he was very weak on right side. He was taken to [place] ED where he was notably flaccid on the right side. His NIH score was 12. CT head showed small R cerebral infarct (new since October 2021), but no acute changes. CTA showed 80% stenosis of proximal R ICA and 55% stenosis of proximal L ICA, as well as severe stenosis of the L ICA extending into cavernous segment of aorta and mild stenosis of R ICA at cavernous sinus. Case was discussed with [facility] stroke team. He could not receive tPA due to being on Xarelto. He was accepted for transfer to [facility] Neuro ICU, awaiting placement for possible intervention of stenosis. He had an MRI brain this morning that showed new infarcts in the R cerebellum, left frontoparietal deep white matter. His Xarelto is being held still. He has been restarted on Aspirin and Plavix. Review of Systems Constitutional: Constitutional: Reports lethargy Eyes: Eyes: Reports no additional eye complaints ENT: Reports system reviewed and no additional complaints, except as documented Cardiovascular: Cardiovascular: Reports no additional cardiovascular complaints Respiratory: Respiratory: Reports dyspnea Gastrointestinal: Gastrointestinal: Reports no additional gastrointestinal complaints Genitourinary: Genitourinary: Reports no additional male genitourinary complaints Musculoskeletal: Musculoskeletal: Reports no additional musculoskeletal complaints Integumentary/Breasts: Skin/Breast: Reports system reviewed and no additional complaints, except as docu Neurologic: Reports as per HPI Psychiatric: Psychiatric: Reports no additional psychiatric complaints Exam Const: General: comfortable and no acute distress HENMT: Mouth: Yes moist mucous membranes Eyes: Pupils: Equal, round and reactive pupils present EOM: EOMs intact bilaterally R
[2022-04-02] MEDS: BUDESONIDE RESPULE NEB 0.5 MG/2 ML AMP INHALATION ×2 (10:24→21:03)
--- NOTE | 2022-04-02 10:48 | PCSTNOTE ---
Therapist spoke with patient who reports no difficulty with Soft and Bite-Sized Diet and Regular Liquids. When asked about advancing diet to Regular, patient reported he wishes to remain on Soft and Bite-Sized as the food comes cut-up and that is easier to handle right now. Reports no issues with swallowing thin/regular liquids.
[2022-04-02 12:03] LABS: Glucose Point of Care 275 mg/dl (65-105)
[2022-04-02] MEDS: INSULIN ASPART (*BKC) 100 UNITS/ML SUB-Q (12:12)
[2022-04-02 12:36] LABS: IFOB Positive Control Positive; Immunochemical Fecal Occult Bl Negative (N)
[2022-04-02 16:22] LABS: Glucose Point of Care 95 mg/dl (65-105)
[2022-04-02 19:51] LABS: Amylase, Pleural Fluid 12 U/L
[2022-04-02] MEDS: APIXABAN 5 MG TABLET PO (20:35)
[2022-04-02] MEDS: QUEtiapine FUMARATE 25 MG TABLET PO (20:35)
[2022-04-02 21:24] LABS: Glucose Point of Care 152 mg/dl (65-105)
[2022-04-03] VITALS (19 sets, daily range): BP systolic 102–109; BP diastolic 59–72; PULSE 76–95; RESP 16–20; TEMP 36.2–36.6; O2SAT 91–100
[2022-04-03] MEDS: IPRATROPIUM BR 0.02% INH SOLN 0.5 MG/2.5 ML VIAL INHALATION ×6 (00:12→23:29)
[2022-04-03] MEDS: ALBUTEROL SULFATE NEB 2.5 MG/3 ML INH INHALATION ×6 (00:12→23:30)
--- NOTE | 2022-04-03 04:01 | PC.NURSE ---
informed liaison inspection laboratory assistant that midline givens poor blood return. retail administrative assistant to draw blood this morning.
[2022-04-03] MEDS: ACETAMINOPHEN ELIXIR 325 MG/10.15 ML UDC 650 MG PO ×2 (04:23→08:54)
[2022-04-03] MEDS: polyethylene glycoL 3350 17 GM POWD.PACK PO (05:06)
[2022-04-03] MEDS: CENTRAL LINE FLUSH 10 ML IV PUSH ×3 (05:07→20:51)
[2022-04-03] MEDS: LEVOTHYROXINE SODIUM 50 MCG TABLET PO (06:03)
[2022-04-03 07:04] LABS: Alanine Aminotransferase 20 U/L (6-50); Albumin Level 3.1 g/dL (3.5-5.1); Alkaline Phosphatase 91 U/L (38-126); Anion Gap 1 mmol/L (8-16); Aspartate Amino Transferase 27 U/L (17-59); Bilirubin,Total 0.6 mg/dL (0.2-1.3); Blood Urea Nitrogen 15 mg/dL (9-20); Calcium 8.2 mg/dL (8.4-10.2); Carbon Dioxide 39 mmol/L (22-30); Chloride 92 mmol/L (98-107); Estimated CRCL calculation 63 ml/min; Estimated Glomerular Filt Rate 60; Glucose 118 mg/dL (65-110); Magnesium 2.1 mg/dL (1.6-2.3); Potassium 4.5 mmol/L (3.4-5.0); Sodium 132 mmol/L (137-145)
[2022-04-03 07:18] LABS: Basophils Percent Auto 0.2 % (0.2-1.2); Eosinophils Absolute Auto 0.3 K/mm3 (0-0.3); Hematocrit 25.4 % (42.0-52.0); Hemoglobin 7.2 g/dL (14.0-18.0); Immature Granulocyte Absolute 0.03 K/mm3 (0.00-0.031); Immature Granulocyte Percent A 0.5 % (0-0.5); Lymphocytes Absolute Auto 0.97 K/mm3 (0.9-3.2); Lymphocytes Percent Auto 16.8 % (18.3-44.2); Mean Corpuscular HGB Conc 28.3 g/dl (32-36); Mean Corpuscular Hemoglobin 22.7 pg (26-34); Mean Corpuscular Volume 80.1 fl (80-100); Mean Platelet Volume 10.5 fl (7.4-10.4); Monocytes Absolute Auto 0.6 K/mm3 (0.1-0.6); Monocytes Percent Auto 9.8 % (2.6-8.5); Neutrophils Absolute Auto 3.9 K/mm3 (1.3-6.7); Neutrophils Percent Auto 67.7 % (45.5-73.1); Platelet Count Result 241 k/mm3 (150-375); Red Blood Count 3.17 M/mm3 (4.6-6.20); Red Cell Distribution Width 23.9 % (11.5-14.5); White Blood Count 5.8 K/mm3 (4.5-10.0)
[2022-04-03 07:46] LABS: Helmet Cells 2+ (NORMAL); Hypochromasia 2+ (NORMAL); Ovalocytes 2+ (NORMAL); Platelet Estimate Adequate (Adequate)
[2022-04-03 07:47] LABS: Tear Drop Cells 2+ (NORMAL)
[2022-04-03 07:48] LABS: Schistocytes 1+ (NORMAL); Stomatocytes 1+ (NORMAL)
[2022-04-03 08:01] LABS: Glucose Point of Care 115 mg/dl (65-105)
[2022-04-03] MEDS: LOSARTAN POTASSIUM 25 MG TABLET PO (08:56)
[2022-04-03] MEDS: rOPINIRole HCL 0.5 MG TABLET PO ×3 (08:57→17:52)
[2022-04-03] MEDS: AMIODARONE HCL 200 MG TABLET PO (08:57)
[2022-04-03] MEDS: ATORVASTATIN 40 MG TABLET 80 MG PO (08:57)
[2022-04-03] MEDS: FUROSEMIDE 40 MG TABLET PO ×2 (08:58→17:52)
[2022-04-03] MEDS: METOPROLOL TARTRATE 50 MG TAB PO ×2 (08:58→20:50)
[2022-04-03] MEDS: ASPIRIN 81 MG ENTERIC TABLET PO (08:58)
[2022-04-03] MEDS: PANTOPRAZOLE SODIUM IV 40 MG VIAL IV PUSH ×2 (08:58→20:50)
[2022-04-03] MEDS: APIXABAN 5 MG TABLET PO ×2 (08:59→20:50)
[2022-04-03] MEDS: INSULIN GLARGINE (*BKC) 100 UNITS/ML 10 UNITS SUB-Q (09:00)
--- NOTE | 2022-04-03 10:14 | PM.IMPN ---
Progress Note: A&P Assessment and Plan (1) Acute on chronic respiratory failure with hypoxia and hypercapnia: Code(s): J96.21 - Acute and chronic respiratory failure with hypoxia; J96.22 - Acute and chronic respiratory failure with hypercapnia Status: Acute Assessment and Plan: Acute on chronic hypercapnic respiratory failure likely secondary to COPD exacerbation, CHF, stroke, pneumonia -patient could have felt weak because of hypercapnia, possible stroke, anemia -patient on BiPAP initially was and 25/11 which was switched to 29/11, repeat ABGs seem to be improving - 03/21 -patient has been switched to Vapotherm (high velocity), repeat ABGs much improved, continue patient on Vapotherm Patient was switched to BiPAP for increased work of breathing at night - 03/22 back on Vapotherm and maintaining saturation - 03/23 wore BiPAP overnight and now is going to be transition to Vapotherm. Will continue trying to use Vapotherm during the day and BiPAP at night - 03/24 continue BiPAP at night/prn and Vapotherm during the day 03/25 -no significant changes status. Continue BiPAP at night and p.r.n. Vapotherm during the day. Continue diuretics -continue bronchodilators, -continued Budesonide nebulizer -status post short course of Solu-Medrol -finished ceftriaxone and azithromycin (03/19) for a 7 day course -patient also has congestive heart failure and Lasix will be continued. Continue b.i.d. dosing -respiratory status continues improve. -discussed with pulmonology, he is seen in the Pulmonary Clinic, requires AVAPS while he is sleeping. -patient tolerating high-flow nasal cannula with 2-3 L oxygen when awake, he is placed on noninvasive ventilation with AVAPS setting on his home trilogy machine -03/27: ultrasound guided right-sided thoracentesis by intervention Radiology with removal of 1 L of clear fluid -Zosyn and vancomycin on 03/26/2022 worsening chest x-ray and pleural effusion, MRSA screen is pending, discontinue Zosyn and vancomycin on 03/28 Discussed with Pulmonary back to his baseline respiratory status (2) Acute CVA (cerebrovascular accident): Code(s): I63.9 - Cerebral infarction, unspecified Status: Acute Assessment and Plan: Patient presented with generalized weakness on 03/18/2022, brain CT on admission showed age indeterminate small right cerebellar infarct which is new since 10/16/2021, several unchanged small infarcts in the bilateral occipital lobes, left frontal lobe, left cerebral hemisphere and couple of small lacunar infarcts at the bilateral basal ganglia. Chronic age-related changes -CTA head and neck 03/18/2022: 80% stenosis of the proximal right internal carotid artery relative to normal distal artery lumen diameter (NASCET criteria).. 55% stenosis of the proximal left internal carotid artery relative to normal distal artery lumen diameter.? Severe stenosis of the left internal carotid artery extending into the cavernous segment of the aorta.:? Mild stenosis of the right internal carotid artery at the cavernous sinus. Evaluation is limited by significant motion artifact. Mild stenosis at the origin of both subclavian arteries. The ER physician had called Neurology had [facility], patient has been accepted awaiting bed -neurology consulted, recommended Lipitor 80 mg q.h.s., - echocardiogram with bubble study showed no shunting -patient had repeat bedside swallow evaluation by speech therapy done 03/21 and was started on modified diet -MRI once patient is more stable respiratory clay -he has not been on any antiplatelet agent due to anemia and suspected blood loss. His hemoglobin has been stable. Continue aspirin PT/OT to evaluate the patient, increase activity Is planning to get MRI brain today Discussed with Neurology again. He will need intervention on his left interna Carotid artery stenosis Preferably within 2 weeks of acute stroke MRI to further evaluate and define area of the stroke. discu
[2022-04-03] MEDS: BUDESONIDE RESPULE NEB 0.5 MG/2 ML AMP INHALATION ×2 (10:31→20:10)
[2022-04-03 12:18] LABS: Glucose Point of Care 220 mg/dl (65-105)
[2022-04-03] MEDS: INSULIN ASPART (*BKC) 100 UNITS/ML SUB-Q (13:48)
[2022-04-03 18:10] LABS: Glucose Point of Care 83 mg/dl (65-105)
[2022-04-03] MEDS: QUEtiapine FUMARATE 25 MG TABLET PO (20:51)
[2022-04-03 21:36] LABS: Glucose Point of Care 142 mg/dl (65-105)
[2022-04-04] VITALS (15 sets, daily range): BP systolic 93–110; BP diastolic 58–80; PULSE 69–89; RESP 16–20; TEMP 35.7–36.4; O2SAT 90–100
[2022-04-04] MEDS: LEVOTHYROXINE SODIUM 50 MCG TABLET PO (05:30)
[2022-04-04] MEDS: CENTRAL LINE FLUSH 10 ML IV PUSH ×3 (05:30→21:39)
--- NOTE | 2022-04-04 06:20 | PCRCNOTE ---
Window of time for administration has passed. See next scheduled administration.
[2022-04-04 06:35] LABS: Basophils Percent Auto 0.5 % (0.2-1.2); Eosinophils Absolute Auto 0.4 K/mm3 (0-0.3); Eosinophils Percent Auto 6.1 % (0-4.4); Hematocrit 25.9 % (42.0-52.0); Hemoglobin 7.4 g/dL (14.0-18.0); Immature Granulocyte Absolute 0.03 K/mm3 (0.00-0.031); Immature Granulocyte Percent A 0.5 % (0-0.5); Lymphocytes Absolute Auto 1.02 K/mm3 (0.9-3.2); Lymphocytes Percent Auto 17.2 % (18.3-44.2); Mean Corpuscular HGB Conc 28.6 g/dl (32-36); Mean Corpuscular Hemoglobin 22.6 pg (26-34); Mean Platelet Volume 10.1 fl (7.4-10.4); Monocytes Absolute Auto 0.6 K/mm3 (0.1-0.6); Monocytes Percent Auto 10.6 % (2.6-8.5); Neutrophils Absolute Auto 3.9 K/mm3 (1.3-6.7); Neutrophils Percent Auto 65.1 % (45.5-73.1); Platelet Count Result 243 k/mm3 (150-375); Red Blood Count 3.28 M/mm3 (4.6-6.20); Red Cell Distribution Width 24.4 % (11.5-14.5); White Blood Count 5.9 K/mm3 (4.5-10.0)
[2022-04-04 06:47] LABS: Alanine Aminotransferase 21 U/L (6-50); Albumin Level 3.1 g/dL (3.5-5.1); Alkaline Phosphatase 98 U/L (38-126); Anion Gap 3 mmol/L (8-16); Aspartate Amino Transferase 27 U/L (17-59); Bilirubin,Total 0.6 mg/dL (0.2-1.3); Blood Urea Nitrogen 15 mg/dL (9-20); Calcium 8.2 mg/dL (8.4-10.2); Carbon Dioxide 38 mmol/L (22-30); Chloride 94 mmol/L (98-107); Estimated CRCL calculation 63 ml/min; Estimated Glomerular Filt Rate 60; Glucose 105 mg/dL (65-110); Potassium 4.7 mmol/L (3.4-5.0); Sodium 135 mmol/L (137-145)
[2022-04-04 07:46] LABS: Glucose Point of Care 119 mg/dl (65-105)
[2022-04-04 07:48] LABS: Platelet Estimate Adequate (Adequate); Poikilocytosis 2+ (NORMAL)
[2022-04-04 07:49] LABS: Acanthocytes 2+ (NORMAL); Hypochromasia 2+ (NORMAL); Ovalocytes 1+ (NORMAL); Schistocytes 1+ (NORMAL)
[2022-04-04] MEDS: IPRATROPIUM BR 0.02% INH SOLN 0.5 MG/2.5 ML VIAL INHALATION ×3 (08:26→20:36)
[2022-04-04] MEDS: ALBUTEROL SULFATE NEB 2.5 MG/3 ML INH INHALATION ×3 (08:26→20:36)
[2022-04-04] MEDS: BUDESONIDE RESPULE NEB 0.5 MG/2 ML AMP INHALATION ×2 (08:26→20:36)
[2022-04-04] MEDS: ASPIRIN 81 MG ENTERIC TABLET PO (09:45)
[2022-04-04] MEDS: FUROSEMIDE 40 MG TABLET PO ×2 (09:45→16:57)
[2022-04-04] MEDS: ATORVASTATIN 40 MG TABLET 80 MG PO (09:45)
[2022-04-04] MEDS: APIXABAN 5 MG TABLET PO ×2 (09:45→21:39)
[2022-04-04] MEDS: LOSARTAN POTASSIUM 25 MG TABLET PO (09:45)
[2022-04-04] MEDS: rOPINIRole HCL 0.5 MG TABLET PO ×3 (09:45→16:57)
[2022-04-04] MEDS: PANTOPRAZOLE SODIUM IV 40 MG VIAL IV PUSH ×2 (09:45→21:39)
[2022-04-04] MEDS: METOPROLOL TARTRATE 50 MG TAB PO ×2 (09:47→21:39)
[2022-04-04] MEDS: AMIODARONE HCL 200 MG TABLET PO (09:47)
[2022-04-04] MEDS: INSULIN GLARGINE (*BKC) 100 UNITS/ML 10 UNITS SUB-Q (09:50)
[2022-04-04] MEDS: ACETAMINOPHEN ELIXIR 325 MG/10.15 ML UDC 650 MG PO (09:55)
[2022-04-04 11:32] LABS: Glucose Point of Care 188 mg/dl (65-105)
--- NOTE | 2022-04-04 11:59 | PCSTNOTE ---
Orders complete/patient seen for two weeks. Discontinue ST services.
--- NOTE | 2022-04-04 12:51 | PM.DS ---
DS: Admitting Diagnosis Discharge Date 04/04/22 Admitting Diagnosis Weakness and altered mental status DS: Discharge Diagnosis Discharge Diagnosis (1) Acute on chronic respiratory failure with hypoxia and hypercapnia: Code(s): J96.21 - Acute and chronic respiratory failure with hypoxia; J96.22 - Acute and chronic respiratory failure with hypercapnia Status: Acute Assessment and Plan: Acute on chronic hypercapnic respiratory failure likely secondary to COPD exacerbation, CHF, stroke, pneumonia -patient could have felt weak because of hypercapnia, possible stroke, anemia -patient on BiPAP initially was and 25/11 which was switched to 29/11, repeat ABGs seem to be improving - 03/21 -patient has been switched to Vapotherm (high velocity), repeat ABGs much improved, continue patient on Vapotherm Patient was switched to BiPAP for increased work of breathing at night - 03/22 back on Vapotherm and maintaining saturation - 03/23 wore BiPAP overnight and now is going to be transition to Vapotherm. Will continue trying to use Vapotherm during the day and BiPAP at night - 03/24 continue BiPAP at night/prn and Vapotherm during the day 03/25 -no significant changes status. Continue BiPAP at night and p.r.n. Vapotherm during the day. Continue diuretics -continue bronchodilators, -continued Budesonide nebulizer -status post short course of Solu-Medrol -finished ceftriaxone and azithromycin (03/19) for a 7 day course -patient also has congestive heart failure and Lasix will be continued. Continue b.i.d. dosing -respiratory status continues improve. -discussed with pulmonology, he is seen in the Pulmonary Clinic, requires AVAPS while he is sleeping. -patient tolerating high-flow nasal cannula with 2-3 L oxygen when awake, he is placed on noninvasive ventilation with AVAPS setting on his home trilogy machine -03/27: ultrasound guided right-sided thoracentesis by intervention Radiology with removal of 1 L of clear fluid -Zosyn and vancomycin on 03/26/2022 worsening chest x-ray and pleural effusion, MRSA screen is pending, discontinue Zosyn and vancomycin on 03/28 03/29: Discussed with Pulmonary back to his baseline respiratory status (2) Acute CVA (cerebrovascular accident): Code(s): I63.9 - Cerebral infarction, unspecified Status: Acute Assessment and Plan: Patient presented with generalized weakness on 03/18/2022, brain CT on admission showed age indeterminate small right cerebellar infarct which is new since 10/16/2021, several unchanged small infarcts in the bilateral occipital lobes, left frontal lobe, left cerebral hemisphere and couple of small lacunar infarcts at the bilateral basal ganglia. Chronic age-related changes -CTA head and neck 03/18/2022: 80% stenosis of the proximal right internal carotid artery relative to normal distal artery lumen diameter (NASCET criteria).. 55% stenosis of the proximal left internal carotid artery relative to normal distal artery lumen diameter.? Severe stenosis of the left internal carotid artery extending into the cavernous segment of the aorta.:? Mild stenosis of the right internal carotid artery at the cavernous sinus. Evaluation is limited by significant motion artifact. Mild stenosis at the origin of both subclavian arteries. The ER physician had called Neurology had [facility], patient has been accepted awaiting bed -neurology consulted, recommended Lipitor 80 mg q.h.s., - echocardiogram with bubble study showed no shunting -patient had repeat bedside swallow evaluation by speech therapy done 03/21 and was started on modified diet -MRI once patient is more stable respiratory clay -he has not been on any antiplatelet agent due to anemia and suspected blood loss. His hemoglobin has been stable. Continue aspirin PT/OT to evaluate the patient, increase activity Is planning to get MRI brain today Discussed with Neurology again. He will need intervention on his left interna Caroti
[2022-04-04 16:17] LABS: EDCOVIDSCREEN Negative (Negative)
--- NOTE | 2022-04-04 16:21 | PC.NURSE ---
Spoke with transfer center at [place]. Covid test negative. All questions answered. Awaiting a bed for transfer.
[2022-04-04 16:35] LABS: Glucose Point of Care 147 mg/dl (65-105)
[2022-04-04] MEDS: polyethylene glycoL 3350 17 GM POWD.PACK PO (21:39)
[2022-04-04] MEDS: QUEtiapine FUMARATE 25 MG TABLET PO (21:39)
[2022-04-04 22:37] LABS: Glucose Point of Care 169 mg/dl (65-105)
[2022-04-05] VITALS (13 sets, daily range): BP systolic 94–98; BP diastolic 58–60; PULSE 80–98; RESP 16–20; TEMP 36.7; O2SAT 95–98
[2022-04-05] MEDS: IPRATROPIUM BR 0.02% INH SOLN 0.5 MG/2.5 ML VIAL INHALATION ×4 (01:05→16:36)
[2022-04-05] MEDS: ALBUTEROL SULFATE NEB 2.5 MG/3 ML INH INHALATION ×4 (01:05→16:36)
--- NOTE | 2022-04-05 04:55 | PC.NURSE ---
Notified purchasing director for need for lab stick due to no midline blood return for 0500 labs
[2022-04-05] MEDS: polyethylene glycoL 3350 17 GM POWD.PACK PO ×2 (05:57→12:45)
[2022-04-05] MEDS: CENTRAL LINE FLUSH 10 ML IV PUSH ×2 (05:57→12:45)
[2022-04-05] MEDS: LEVOTHYROXINE SODIUM 50 MCG TABLET PO (05:57)
[2022-04-05] MEDS: BUDESONIDE RESPULE NEB 0.5 MG/2 ML AMP INHALATION (07:59)
[2022-04-05 08:48] LABS: Basophils Percent Auto 0.2 % (0.2-1.2); Eosinophils Absolute Auto 0.3 K/mm3 (0-0.3); Eosinophils Percent Auto 6.6 % (0-4.4); Hematocrit 26.9 % (42.0-52.0); Hemoglobin 7.7 g/dL (14.0-18.0); Lymphocytes Percent Auto 19.3 % (18.3-44.2); Mean Corpuscular HGB Conc 28.6 g/dl (32-36); Mean Corpuscular Hemoglobin 23.1 pg (26-34); Mean Corpuscular Volume 80.8 fl (80-100); Mean Platelet Volume 10.2 fl (7.4-10.4); Monocytes Absolute Auto 0.6 K/mm3 (0.1-0.6); Monocytes Percent Auto 11.6 % (2.6-8.5); Neutrophils Absolute Auto 3.2 K/mm3 (1.3-6.7); Neutrophils Percent Auto 62.3 % (45.5-73.1); Platelet Count Result 256 k/mm3 (150-375); Red Blood Count 3.33 M/mm3 (4.6-6.20); Red Cell Distribution Width 24.2 % (11.5-14.5); White Blood Count 5.2 K/mm3 (4.5-10.0)
[2022-04-05 09:09] LABS: Alanine Aminotransferase 19 U/L (6-50); Albumin Level 3.1 g/dL (3.5-5.1); Alkaline Phosphatase 94 U/L (38-126); Anion Gap 2 mmol/L (8-16); Aspartate Amino Transferase 27 U/L (17-59); Bilirubin,Total 0.7 mg/dL (0.2-1.3); Blood Urea Nitrogen 15 mg/dL (9-20); Calcium 8.2 mg/dL (8.4-10.2); Carbon Dioxide 38 mmol/L (22-30); Chloride 95 mmol/L (98-107); Estimated CRCL calculation 62 ml/min; Estimated Glomerular Filt Rate 60; Glucose 89 mg/dL (65-110); Potassium 4.4 mmol/L (3.4-5.0); Sodium 135 mmol/L (137-145)
[2022-04-05 09:10] LABS: Glucose Point of Care 107 mg/dl (65-105)
[2022-04-05] MEDS: APIXABAN 5 MG TABLET PO (10:04)
[2022-04-05] MEDS: LOSARTAN POTASSIUM 25 MG TABLET PO (10:04)
[2022-04-05] MEDS: ATORVASTATIN 40 MG TABLET 80 MG PO (10:04)
[2022-04-05] MEDS: FUROSEMIDE 40 MG TABLET PO ×2 (10:05→16:44)
[2022-04-05] MEDS: AMIODARONE HCL 200 MG TABLET PO (10:05)
[2022-04-05] MEDS: METOPROLOL TARTRATE 50 MG TAB PO (10:05)
[2022-04-05] MEDS: ASPIRIN 81 MG ENTERIC TABLET PO (10:05)
[2022-04-05] MEDS: rOPINIRole HCL 0.5 MG TABLET PO ×3 (10:05→16:44)
[2022-04-05] MEDS: INSULIN GLARGINE (*BKC) 100 UNITS/ML 10 UNITS SUB-Q (10:06)
[2022-04-05] MEDS: PANTOPRAZOLE SODIUM IV 40 MG VIAL IV PUSH (10:06)
[2022-04-05 10:37] LABS: Platelet Estimate Adequate (Adequate)
[2022-04-05 10:38] LABS: Anisocytosis 1+ (NORMAL); Atypical Lymphocytes Present; Hypochromasia 2+ (NORMAL); Ovalocytes 1+ (NORMAL); Poikilocytosis 1+ (NORMAL); Schistocytes Rare (NORMAL)
[2022-04-05 12:02] LABS: Glucose Point of Care 181 mg/dl (65-105)
--- NOTE | 2022-04-05 16:02 | P.PNIM_ITS ---
Progress Note: A&P Assessment and Plan (1) Acute on chronic respiratory failure with hypoxia and hypercapnia: Code(s): J96.21 - Acute and chronic respiratory failure with hypoxia; J96.22 - Acute and chronic respiratory failure with hypercapnia Status: Acute Assessment and Plan: Acute on chronic hypercapnic respiratory failure likely secondary to COPD exacerbation, CHF, stroke, pneumonia -patient could have felt weak because of hypercapnia, possible stroke, anemia -patient on BiPAP initially was and 25/11 which was switched to 29/11, repeat ABGs seem to be improving - 03/21 -patient has been switched to Vapotherm (high velocity), repeat ABGs much improved, continue patient on Vapotherm Patient was switched to BiPAP for increased work of breathing at night - 03/22 back on Vapotherm and maintaining saturation - 03/23 wore BiPAP overnight and now is going to be transition to Vapotherm. Will continue trying to use Vapotherm during the day and BiPAP at night - 03/24 continue BiPAP at night/prn and Vapotherm during the day 03/25 -no significant changes status. Continue BiPAP at night and p.r.n. Vapotherm during the day. Continue diuretics -continue bronchodilators, -continued Budesonide nebulizer -status post short course of Solu-Medrol -finished ceftriaxone and azithromycin (03/19) for a 7 day course -patient also has congestive heart failure and Lasix will be continued. Continue b.i.d. dosing -respiratory status continues improve. -discussed with pulmonology, he is seen in the Pulmonary Clinic, requires AVAPS while he is sleeping. -patient tolerating high-flow nasal cannula with 2-3 L oxygen when awake, he is placed on noninvasive ventilation with AVAPS setting on his home trilogy machine -03/27: ultrasound guided right-sided thoracentesis by intervention Radiology with removal of 1 L of clear fluid -Zosyn and vancomycin on 03/26/2022 worsening chest x-ray and pleural effusion, MRSA screen is pending, discontinue Zosyn and vancomycin on 03/28 03/29: Discussed with Pulmonary back to his baseline respiratory status (2) Acute CVA (cerebrovascular accident): Code(s): I63.9 - Cerebral infarction, unspecified Status: Acute Assessment and Plan: Patient presented with generalized weakness on 03/18/2022, brain CT on admission showed age indeterminate small right cerebellar infarct which is new since 10/16/2021, several unchanged small infarcts in the bilateral occipital lobes, left frontal lobe, left cerebral hemisphere and couple of small lacunar infarcts at the bilateral basal ganglia. Chronic age-related changes -CTA head and neck 03/18/2022: 80% stenosis of the proximal right internal carotid artery relative to normal distal artery lumen diameter (NASCET criteria).. 55% stenosis of the proximal left internal carotid artery relative to normal distal artery lumen diameter.? Severe stenosis of the left internal carotid artery extending into the cavernous segment of the aorta.:? Mild stenosis of the right internal carotid artery at the cavernous sinus. Evaluation is limited by significant motion artifact. Mild stenosis at the origin of both subclavian arteries. The ER physician had called Neurology had [facility], patient has been accepted awaiting bed -neurology consulted, recommended Lipitor 80 mg q.h.s., - echocardiogram with bubble study showed no shunting -patient had repeat bedside swallow evaluation by speech therapy done 03/21 and was started on modified diet -MRI once patient is more stable respiratory clay -he has not been on any antiplatelet agent due to anemia and suspected blood loss. His hemoglobin has been stable. Continue aspirin PT/OT to evaluate the pa
[2022-04-05 17:05] LABS: Glucose Point of Care 103 mg/dl (65-105)
[2022-04-12 08:02] LABS: Protein,total, 24 Hr Ur 832 mg/24h
[2022-04-12 08:03] LABS: Albumin 20%; Creat 24 Hr 1.13; Pro/Creat Ratio 739
[2022-04-12 08:05] LABS: Measured Lambda Chains 1.87; Total Kappa Chains 70.56; Total Lambda Chains 29.92
[2022-04-12 08:06] LABS: Measured Kappa Chains 4.41
== END 2022-04-05 20:25 | disposition home health service (06) | DRG 64 ==
LOC: ANHED 18:31 → ANHICU 20:24 → ANH3MEDSUR 03-28 15:42
PROVIDERS: Internal Medicine; Internal Medicine Gastroenterology; Internal Medicine Nephrology; Internal Medicine Pulmonary Disease; Physician Assistant; Admitting Provider Internal Medicine; Emergency Provider Emergency Medicine; PCP Family Medicine; Visit Provider Student in an Organized Health Care Education/Training Program
DX: I63.89 Other cerebral infarction (principal); I50.33 Acute on chronic diastolic (congestive) heart failure; J96.21 Acute and chronic respiratory failure with hypoxia; J96.22 Acute and chronic respiratory failure with hypercapnia; E66.2 Morbid (severe) obesity with alveolar hypoventilation; J44.1 Chronic obstructive pulmonary disease with (acute) exacerbation; N17.9 Acute kidney failure, unspecified; G81.91 Hemiplegia, unspecified affecting right dominant side; J90 Pleural effusion, not elsewhere classified; R29.712 NIHSS score 12; J44.9 Chronic obstructive pulmonary disease, unspecified; I25.5 Ischemic cardiomyopathy; I25.10 Atherosclerotic heart disease of native coronary artery without angina pectoris; D64.9 Anemia, unspecified; R19.5 Other fecal abnormalities; Z20.822 Contact with and (suspected) exposure to COVID-19; Z95.1 Presence of aortocoronary bypass graft; I25.2 Old myocardial infarction; G25.81 Restless legs syndrome; Z75.1 Person awaiting admission to adequate facility elsewhere; Z66 Do not resuscitate; I48.91 Unspecified atrial fibrillation; F10.21 Alcohol dependence, in remission; Z87.891 Personal history of nicotine dependence; Z79.82 Long term (current) use of aspirin; Z79.51 Long term (current) use of inhaled steroids; Z79.899 Other long term (current) drug therapy; Z80.8 Family history of malignant neoplasm of other organs or systems; Z81.1 Family history of alcohol abuse and dependence
CPT/HCPCS: 32555; 36415; 36430; 36569; 36600; 51702; 70450; 70496; 70498; 70551; 71045; 76775; 80048; 80053; 80069; 80202; 81001; 82150; 82274; 82375; 82550; 82570; 82607; 82728; 82746; 82805; 82945; 82948; 83036; 83050; 83540; 83550; 83615; 83735; 83880; 83883; 83986; 84100; 84156; 84157; 84300; 84478; 84484; 84540; 85014; 85018; 85025; 85027; 85610; 85652; 85730; 86038; 86160; 86162; 86334; 86335; 86850; 86900; 86901; 86923; 87015; 87040; 87070; 87075; 87081; 87086; 87102; 87116; 87205; 87206; 87426; 87636; 88108; 88184; 88305; 89051; 92507; 92526; 92610; 93005; 93306; 94002; 94003; 94640; 94660; 94762; 96361; 96374; 96375; 97110; 97116; 97161; 97165; 97530; 97535; 99285; A9270; C1751; C9113; C9803; J0282; J0456; J0696; J1630; J1650; J1815; J1940; J2060; J2543; J2930; J3370; J7030; J7050; P9016; Q9967

== ENCOUNTER 2022-08-05 10:01 | Outpatient (CLI) | payer MEDICARE, SELFPAY ==
[2022-08-05 10:47] LABS: Anion Gap 1 mmol/L (8-16); Blood Urea Nitrogen 18 mg/dL (9-20); Calcium 8.6 mg/dL (8.4-10.2); Carbon Dioxide 39 mmol/L (22-30); Chloride 96 mmol/L (98-107); Estimated Glomerular Filt Rate > 60; Glucose 141 mg/dL (65-110); Potassium 4.5 mmol/L (3.4-5.0); Sodium 136 mmol/L (137-145)
== END 2022-08-05 10:02 | disposition home or self-care (01) ==
PROVIDERS: Anesthesiology; PCP Family Medicine; Visit Provider Urology
DX: Z79.899 Other long term (current) drug therapy (principal); Z01.818 Encounter for other preprocedural examination
CPT/HCPCS: 36415; 80048

== ENCOUNTER 2022-08-08 00:59 | Day surgery (SDC) | payer MEDICARE, SELFPAY ==
[2022-08-02 15:04] VITALS: BMI 33.3
--- NOTE | 2022-08-02 15:10 | PC.NURSE ---
PRE-OP INSTRUCTIONS, PLEASE READ CAREFULLY Report to the Outpatient Waiting Room, entrance under the green pavilion located off [facility], at time _1230_ on date _08/08/22_. Planned Procedure Time: _2:30 PM_. Time changes happen often and if your time is changed the preop area will call you the afternoon before. - You and your visitor will be asked to self-screen and do not enter if you have any COVID symptoms. - A mask is optional within the hospital at this time. Patients may have clear liquids (water, carbonated beverages, clear teas, apple juice) until 3 hours prior to surgery with a maximum of 20 ounces. - No food from midnight until time of surgery Take the following medications with a SIP of water the morning of surgery: _METOPROLOL, INHALER_ DO NOT STOP ANY OF YOUR OTHER PRESCRIPTION MEDICATIONS PRIOR TO SURGERY ?EXCEPT THE FOLLOWING Medications to discontinue _ASPIRIN & ELIQUIS PER DR. WILLIAM'S INSTRUCTIONS Please no make-up, nail montenegrin, hairspray, perfume, deodorant, or body powder the day of surgery. No jewelry (including any body piercings) or valuables the day of surgery, leave them at home. Please take a shower or bath the night before, or the morning of, surgery with an antibacterial soap. Wear comfortable, loose fitting clothing. - Jewelry must be removed prior to entering the operating room. Rings and piercings that are not removed may be cut off. - The hospital will not accept responsibility for valuables. - Please leave all valuables, including medications, at home the day of surgery. If you are going home after surgery, a licensed pick up truck driver must drive you home. - NO public transportation without another adult if you receive anesthesia. - We recommend that an adult stay with you for 24 hours following discharge. - We also recommend that you do not drive, make important decision, drink alcoholic beverages, or take any drugs that were not prescribed by your health care provider for at least 24 hours after your discharge time. Follow any additional instructions given to you from your surgeon. If you or anyone in your household have experienced Covid symptoms in the past week, please notify your surgeon or the nurse liaison at the phone number below for possible testing. Telephone instructions given to _PATIENT_and asked if any additional questions and then verbalized understanding. Patient advised to call surgeon office or pre surgery nurse liaison [phone] if any additional questions.
--- NOTE | 2022-08-07 13:35 | WPDANESEPPF ---
Anes - Initial Pre Proc Eval Procedure: Operation Date: 08/08/22 14:30 Proposed Procedures p Cystoscopy,Insertion Suprapubic Catheter - Nic Rutledge MD Date/Time: 08/07/22 13:35 Surgeon: Nic Rutledge MD Pre Op Diagnosis: atomic bladder Patient Data Age: 72 Gender: M Height: 1.8 m Weight: 108.18 kg Allergies Allergy/AdvReac Type Severity Reaction Status Date / Time No Known Allergies Allergy Verified 08/08/22 13:11 Home Medications Medication Instructions Recorded Confirmed Type losartan 25 mg tablet 25 mg PO DAILY 10/15/21 08/08/22 History apixaban 5 mg tablet (Eliquis) 5 mg PO Q12HR 1 month #60 tabs 04/04/22 08/08/22 Rx metoprolol tartrate 50 mg tablet 50 mg PO Q12HR 1 month #60 tabs 04/04/22 08/08/22 Rx aspirin 325 mg tablet,delayed 325 mg PO QAM #30 tabs 04/26/22 08/08/22 Rx release furosemide 40 mg tablet 40 mg PO BID #60 tabs 04/26/22 08/08/22 Rx albuterol sulfate 90 mcg/actuation 2 inh inhalation Q4H PRN shortness 07/24/22 08/02/22 Rx aerosol inhaler of breath or wheezing #8.5 grams ipratropium 0.5 mg-albuterol 3 mg 3 ml inhalation QID #180 mL 07/24/22 08/02/22 Rx (2.5 mg base)/3 mL nebulization soln ropinirole 1 mg tablet 0.5 mg PO TID #90 tabs 08/02/22 08/02/22 Rx Patient hx anesthesia problems: none Family hx anesthesia problems: none Results Review: All pre-operative results and documents have been reviewed as part of the pre-operative evaluation. [facility] Past Medical History Medical History Abdominal distension Adult BMI 29.0-29.9 kg/sq m Alcohol abuse Asbestosis Atrial fibrillation with rapid ventricular response BMI 34.0-34.9,adult BMI over 35 Chronic hypercapnic respiratory failure COPD (chronic obstructive pulmonary disease) COPD (chronic obstructive pulmonary disease) with emphysema Coronary artery disease Followed by Dr. Liz Little for immunization (04/03/15) Essential hypertension History of ventricular fibrillation VFib arrest during cardiac catheterization December 2018 and subsequent cardiogenic shock cardiac in her aortic balloon pump emergent echo demonstrating EF of 35% Hypercholesterolemia Ileus, unspecified Irritation of eye Irritation of left eye Lumbar spondylosis with myelopathy Paroxysmal atrial fibrillation Restless leg STEMI (ST elevation myocardial infarction) Tobacco use Surgical History Surgical History History of cardiac catheterization December 2018: High-grade stenosis of left main coronary, moderate to severe diffuse disease of proximal to mid LAD, high-grade eccentric ulcerated plaque in the mid segment of the dominant RCA. During catheterization the patient went into VFib arrest much shock x1 Hx of CABG CABG with [place] to LAD, left radial artery to OM 2, reverse saphenous vein graft 2 p.o. be of RCA performed by Dr. Worrell December 2019 at [facility]. Family History Family History Mother Bone cancer Father Alcoholism Sibling Healthy adult male 62 years old Social History Social History Social History: 48 years. They have 4 children who reportedly healthy. He is a former smoker at least a pack of cigarettes per day for about 42 years. He used to drink alcohol quite heavily and drink at least a 10 pack a day until his heart attack in December of 2018. He denies any illicit substance use. 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 Primary care physician: Dr. Thomas Garza Code status: Full code Surrogate decision maker: Smoking packs per day: 0.5 Smoking cigarettes per day: 10.0 Years smoked: 40 Smoking pack-years: 20.00 Smoking status: Former smoker Tobacco type: cigarettes Second hand tobacco smoke exposure: Yes Additional smoking assessment comments:
--- NOTE | 2022-08-08 06:24 | WPDHPUPDATE1 ---
History and Physical Update Update Date/Time: 08/08/22 06:24 History and Physical has been reviewed, including an updated exam of the patient. There are NO changes in the patient's condition. Risks, benefits, and alternatives have been discussed and questions answered. Patient agrees to proceed with procedure.
[2022-08-08 12:35] VITALS: BP 118/74; PULSE 96; RESP 18; TEMP 36.8; O2SAT 100; BMI 33.1
--- NOTE | 2022-08-08 12:45 | SUR.PREOP ---
1245- Notified Dr. Ivan patient took furosemide and losartan at 0000 08/08/22. OK to proceed per Dr. Ivan.
[2022-08-08] MEDS: LACTATED RINGERS 1,000 ML 30 ML IV CONT (13:15)
[2022-08-08] MEDS: ceFAZolin 2 GM/D5W 50 ML 2 GM/50 ML BAG IVPB (15:00)
[2022-08-08] MEDS: LIDOCAINE HCL 2% GEL UROJET 10 ML PKG MUCOUS MEM (15:21)
[2022-08-08] MEDS: LIDOCAINE HCL 1% LOCAL INJ 20 ML VIAL 10 ML INFILTRATE (15:29)
--- NOTE | 2022-08-08 15:44 | W.PM.PROC2 ---
Procedure Note - Detailed Date of Procedure 08/08/22 Pre-op Diagnosis Atomic bladder Post-op Diagnosis Same Procedure Performed Cystoscopy, placement a suprapubic catheter Surgeon Nic Rutledge MD Anesthesia General Description of Procedure Patient is brought to the operative suite where he has prepped and draped in routine sterile fashion while in a supine position. Cystoscopy is undertaken with a 16F flexible cystoscope. He has no urethral strictures with moderate lateral lobe hyperplasia of the prostate. 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 There is no intravesical foreign body or neoplasm. I filled his bladder with saline and placed a spinal needle through the dome of the bladder 1035 in glidewire was advanced through that and grasped with the cystoscope. I dilated the suprapubic tract with Amplatz dilators to from 8 F to 22 F. I then placed an 16F Councill tip catheter through the dome. The suprapubic catheter secured with a 3-O nylon. Scopes wires removed. Blood loss was approximately 5 cc. Drains Yes Packing No Pathology None sent
[2022-08-08 15:45] VITALS: BP 139/86; PULSE 114; RESP 16; TEMP 36.7; O2SAT 100
[2022-08-08 16:00] VITALS: BP 117/67; PULSE 97; RESP 21; O2SAT 100
[2022-08-08 16:15] VITALS: BP 106/64; PULSE 99; RESP 20; O2SAT 95
[2022-08-08 16:25] VITALS: BP 149/80; PULSE 102; RESP 20; O2SAT 95
[2022-08-08 16:55] VITALS: BP 114/72; PULSE 93; RESP 16
== END 2022-08-08 17:17 | disposition home or self-care (01) ==
PROVIDERS: PCP Family Medicine; Visit Provider Urology
PROC: 0T9B30Z Drainage of Bladder with Drainage Device, Percutaneous Approach (ICD-10-PCS; CPT 51102; principal; 2022-08-08 14:30)
DX: N31.2 Flaccid neuropathic bladder, not elsewhere classified (principal); J44.9 Chronic obstructive pulmonary disease, unspecified; I25.10 Atherosclerotic heart disease of native coronary artery without angina pectoris; I48.0 Paroxysmal atrial fibrillation; J96.12 Chronic respiratory failure with hypercapnia; I10 Essential (primary) hypertension; E78.00 Pure hypercholesterolemia, unspecified; I25.2 Old myocardial infarction; G25.81 Restless legs syndrome; Z79.01 Long term (current) use of anticoagulants; Z79.82 Long term (current) use of aspirin; Z79.51 Long term (current) use of inhaled steroids; Z95.1 Presence of aortocoronary bypass graft; Z87.891 Personal history of nicotine dependence; E66.9 Obesity, unspecified; Z68.33 Body mass index [BMI] 33.0-33.9, adult
CPT/HCPCS: 51102; 36415; 80048; C1726; C1769; J0690; J1165; J2405; J2704; J3010; J7120

== ENCOUNTER 2022-10-28 10:02 | Outpatient (CLI) | payer MEDICARE, SELFPAY ==
--- NOTE | ~2022-10-28 | CT_ITS ---
CT Scan of the Chest without Contrast: Clinical Indication: Lung cancer screening, personal history of nicotine dependence Technique: Contiguous sections were acquired throughout the chest without intravenous contrast. Dose reduction technique was used on this scan by utilizing automated exposure control and iterative recon struction technique. The dose-length product (DLP) was 346.21 mGy-cm. COMPARISON: 10/15/2021 and 06/20/2020 Findings: There is no evidence of any significant mediastinal, hilar or axillary lymphadenopathy. Atherosclerot ic calcifications of the aorta and coronary arteries are present. No pericardial effusion. Small to moderate right pleural effusion present. No left pleural effusion. The lungs are clear. No pulmonary nodules or infiltrates are noted. Mild emphysema present. Images through the upper abdomen reveal no abnormalities. Impression: Lung RADS 1: Negative. 12 month follow-up screening CT advised. [id number] right pleural effusion, of uncertain etiology. Consider additional diagnostic jermaine p as indicated. Reviewed, dictated and finalized at location . Impression: Lung RADS 1: Negative. 12 month follow-up screening CT advised. [id number] right pleural effusion, of uncertain etiology. Consider addit ional diagnostic workup as indicated.
== END 2022-10-28 10:03 | disposition home or self-care (01) ==
PROVIDERS: PCP Family Medicine; Visit Provider Internal Medicine Pulmonary Disease
DX: Z12.2 Encounter for screening for malignant neoplasm of respiratory organs (principal); Z87.891 Personal history of nicotine dependence
CPT/HCPCS: 71271

== ENCOUNTER 2023-01-21 10:55 | Outpatient (CLI) | payer MEDICARE, SELFPAY ==
[2023-01-21 12:02] LABS: Basophils Absolute Auto 0.1 K/mm3 (0.0-0.1); Basophils Percent Auto 0.6 % (0.2-1.2); Eosinophils Absolute Auto 0.7 K/mm3 (0-0.3); Eosinophils Percent Auto 5.9 % (0-4.4); Hematocrit 38.1 % (42.0-52.0); Hemoglobin 11.6 g/dL (14.0-18.0); Immature Granulocyte Absolute 0.04 K/mm3 (0.00-0.031); Immature Granulocyte Percent A 0.4 % (0-0.5); Lymphocytes Absolute Auto 0.89 K/mm3 (0.9-3.2); Lymphocytes Percent Auto 7.9 % (18.3-44.2); Mean Corpuscular HGB Conc 30.4 g/dl (32-36); Mean Corpuscular Hemoglobin 25.8 pg (26-34); Mean Corpuscular Volume 84.9 fl (80-100); Mean Platelet Volume 10.6 fl (7.4-10.4); Monocytes Absolute Auto 0.8 K/mm3 (0.1-0.6); Neutrophils Absolute Auto 8.8 K/mm3 (1.3-6.7); Neutrophils Percent Auto 78.2 % (45.5-73.1); Platelet Count Result 366 k/mm3 (150-375); Red Blood Count 4.49 M/mm3 (4.6-6.20); Red Cell Distribution Width 17.7 % (11.5-14.5); White Blood Count 11.3 K/mm3 (4.5-10.0)
[2023-01-21 12:15] LABS: Anion Gap 6 mmol/L (8-16); Blood Urea Nitrogen 17 mg/dL (9-20); Calcium 8.9 mg/dL (8.4-10.2); Carbon Dioxide 35 mmol/L (22-30); Chloride 93 mmol/L (98-107); Estimated Glomerular Filt Rate > 60; Glucose 174 mg/dL (65-110); Magnesium 2.1 mg/dL (1.6-2.3); Potassium 3.9 mmol/L (3.4-5.0); Sodium 134 mmol/L (137-145)
== END 2023-01-21 10:56 | disposition home or self-care (01) ==
PROVIDERS: PCP Family Medicine; Visit Provider Nurse Practitioner Adult Health
DX: I50.32 Chronic diastolic (congestive) heart failure (principal); I48.19 Other persistent atrial fibrillation
CPT/HCPCS: 36415; 80048; 83735; 85025

== ENCOUNTER 2023-03-26 15:54 | Outpatient (CLI) | payer MEDICARE, SELFPAY ==
[2023-03-26 17:14] LABS: Free T4 Free Thyroxine 1.28 ng/mL (0.78-2.19)
== END 2023-03-26 15:55 | disposition home or self-care (01) ==
PROVIDERS: PCP Family Medicine; Visit Provider Physician Assistant Medical
DX: E03.9 Hypothyroidism, unspecified (principal)
CPT/HCPCS: 36415; 84439; 84443

== ENCOUNTER 2023-09-24 12:51 | Outpatient (CLI) | payer MEDICARE, SELFPAY ==
--- NOTE | ~2023-09-24 | XR_ITS ---
3 VIEWS LUMBAR SPINE Ordering provider: VERONIQUE Salgado History: . Lumbago with sciatica, unspecified side , BACK PAIN X 2 MON. . Comparison: July 04, 2020 FINDINGS: VERTEBRAL BODIES:Levoscoliosis. Degenerative changes of the spine. Loss of volume of L1 which may be acute or chronic.. Multilevel facet joint disease. DISK SPACES: Narrowing of the disc spaces L1-L2, L2-L3, L3/L4, L4-L5 and L5-S1. SOFT TISSUES: Periarticular calcification. IMPRESSION: Loss of volume of L1 which may be acute or chronic. Multilevel degenerative disc disease. Multilevel facet joint disease. Reviewed, dictated and finalized at location A.
== END 2023-09-24 12:52 | disposition home or self-care (01) ==
LOC: ANHIMG 12:53
PROVIDERS: PCP Family Medicine; Visit Provider Physician Assistant Medical
DX: M54.40 Lumbago with sciatica, unspecified side (principal); M51.36 Other intervertebral disc degeneration, lumbar region
CPT/HCPCS: 72100

== ENCOUNTER 2023-11-03 14:20 | Outpatient (CLI) | payer MEDICARE, SELFPAY ==
--- NOTE | ~2023-11-03 | CT_ITS ---
EXAMINATION: CT lung screening DATE: 11/03/2023 14:34 INDICATION: Personal history of nicotine dependence TECHNIQUE: Computed tomography (CT) of the chest was performed without intravenous contrast. The dose -length product was 211.93 mGy-cm. Automated exposure control and iterative reconstruction technique were employed. COMPARISON: CT dated 10/28/2022 FINDINGS: Borderline heart size. Status post median sternotomy for CABG. Increased size of moderate l oculated right pleural effusion. No significant thoracic lymphadenopathy. There is atherosclerosis of the aorta, great vessels and coronary arteries. Status post median sternotomy for CABG. There is emp hysema. No endobronchial lesions. No suspicious pulmonary nodules or masses. IMPRESSION: 1. . Lung-RADS category 1: Negative. Continue annual screening with noncontrast low-dose chest CT in 12 months. 2: Increased size of loculated right pleural effusion. Reviewed, dictated and finalized at location B.
== END 2023-11-03 14:21 | disposition home or self-care (01) ==
LOC: ANHIMG 14:22
PROVIDERS: PCP Family Medicine; Visit Provider Internal Medicine Pulmonary Disease
DX: Z12.2 Encounter for screening for malignant neoplasm of respiratory organs (principal); Z87.891 Personal history of nicotine dependence
CPT/HCPCS: 71271

== ENCOUNTER 2023-11-20 06:45 | Outpatient (CLI) | payer MEDICARE, SELFPAY ==
--- NOTE | 2023-11-18 15:32 | PC.NURSE ---
Pre Radiology instructions Report to the outpatient [facility] on date ___11/20/23 __ at time _09:30am for procedure Time: _11:30am___ YOU MAY BE MONITORED AT HOSPITAL FOR UP TO 4 HOURS AFTER YOUR PROCEDURE. A visitor will be allowed to accompany the patient into the hospital. You and your visitor will be asked to self-screen and do not enter if you have any COVID symptoms. A mask is OPTIONAL within the hospital. Patients are to have no food or drink 6 hours prior to procedure time Driving will be restricted after the procedure, you must have a person to drive you home. Labs will be drawn in preop area and once reviewed, you will be taken to radiology area for procedure. When the procedure is completed, you will be taken to outpatient where you will be monitored for several hours. You may have one visitor in this area. Other than holding anti-coagulants, patient may take other medication(s) as scheduled. Prior to your appointment date patients are instructed to hold anti-coagulants after discussing with ordering provider to stop. If unable to discontinue anti-coagulants please notify radiologist. ? No aspirin or warfarin (Coumadin) for 7 days prior to the procedure. ? No clopidogrel (Plavix), ticagrelor (Brilinta), prasugrel (Effient) or dabigatran (Pradaxa) for 5 days prior to the procedure. ? No rivaroxaban (Xarelto), apixaban (Eliquis), dipyridamole (Aggrenox or Persantine) or cilostazol (Pletal) for 2 days prior to the procedure. Medications to discontinue per physician: _Stop Plavix [address] Fried. Date to take last dose: __11/14/23 Radiology -Dr Fried notified that pt is still taking baby aspirin and did not stop it. Let Dr know that Clearance note per Dr Hill instructions requests pt to stay on baby asa and only Hold Plavix with cardiac history. Dr Fried stated that pt can cont baby asa and proceed with procedure. Pt called back and verbalized understanding. Please leave all valuables, including medications, at home the day of procedure. The hospital will not accept responsibility for valuables. Wear comfortable, loose fitting clothing.? Follow any additional instructions given to you from ordering provider. Telephone instructions given to _patient and asked if any additional questions and then verbalized understanding. Patient advised to call scheduling provider office or registration scheduling [phone] if any additional questions.
[2023-11-18 15:54] VITALS: BMI 32.5
[2023-11-20] VITALS (7 sets, daily range): BP systolic 106–134; BP diastolic 49–65; PULSE 69–87; RESP 16–18; TEMP 36.4; O2SAT 96–100
--- NOTE | ~2023-11-20 | XR_ITS ---
EXAMINATION: [id number] DATE: 11/20/2023 12:13 INDICATION: Right pleural effusion status post thoracentesis. TECHNIQUE: A single frontal view of the chest was obtained. COMPARISON: Chest single view 03/30/2022, 11/03/2023 FINDINGS: There are airspace opacities in the lower lung zones, likely atelectasis. There is a small right pleural effusion. There is a trace right pneumothorax. Cardiomegaly is noted. There is a closur e device at left atrial appendage. Median sternotomy wires and mediastinal surgical clips are seen, l ikely from prior coronary artery bypass grafting. There are prominent pericardial fat pads. There is a stent in left subclavian artery. IMPRESSION: 1. Small right pleural effusion. Trace right pneumothorax. 2. Airspace opacities in the lower lung zones, likely atelectasis. Reviewed, dictated and finalized at location A.
--- NOTE | ~2023-11-20 | US_ITS ---
EXAMINATION: US thoracentesis DATE: 11/20/2023 12:29 INDICATION: Pleural effusion, not elsewhere classified. TECHNIQUE: The procedure and its risks, benefits, and alternatives were discussed with the patient. P otential risks discussed included bleeding, infection, and pneumothorax. The patient understood the r isks and agreed to proceed. The skin was prepped and draped in sterile fashion. 1% lidocaine was used for local anesthesia. Under ultrasound guidance, a 5 Fr catheter with trochar was advanced into the right pleural effusion. Fluid was aspirated. The catheter was removed, and a dressing was applied. Th ere were no immediate complications. FINDINGS: Ultrasound images demonstrate a right pleural effusion and the catheter within the fluid. IMPRESSION: 1. Successful ultrasound-guided thoracentesis yielding 500 mL of sung-colored fluid. Reviewed, dictated and finalized at location A.
[2023-11-20 10:39] LABS: Mean Platelet Volume 9.4 fl (7.4-10.4); Platelet Count Result 327 k/mm3 (150-375)
[2023-11-20 10:51] LABS: Prothrombin Time 13.9 Seconds (11.1-14.7)
[2023-11-20 13:41] LABS: pH Pleural Fluid 7.465 (7.210-7.500)
[2023-11-20 14:02] LABS: Appearance Pleural Fluid Hazy (Clear); Color Pleural Fluid Yellow (Colorless); Pleural fluid source Pleural fluid
[2023-11-20 14:03] LABS: Lymphocytes Pleural Fluid 97 %; Monocytes Pleural Fluid 2 %; Neutrophils Pleural Fluid 0 % (0-25); Other Cells Pleural Fluid 1 %
[2023-11-27 14:05] LABS: Amylase, Pleural Fluid 11 U/L; Glucose Pleural Fluid 137 mg/dL; LDH Pleural Fluid 540 U/L; Total Protein Pleural Fluid 5.6 g/dL
== END 2023-11-20 14:50 | disposition home or self-care (01) ==
PROVIDERS: PCP Family Medicine; Referring Provider Internal Medicine Pulmonary Disease; Visit Provider Radiology Diagnostic Radiology
DX: J90 Pleural effusion, not elsewhere classified (principal); I25.10 Atherosclerotic heart disease of native coronary artery without angina pectoris; R91.8 Other nonspecific abnormal finding of lung field
CPT/HCPCS: 32555; 36415; 82042; 82150; 82945; 83615; 83986; 84157; 84311; 84478; 85049; 85610; 87015; 87070; 87075; 87116; 87205; 87206; 88108; 88305; 89051

== ENCOUNTER 2023-11-25 10:35 | Outpatient (CLI) | payer MEDICARE, SELFPAY ==
[2023-11-25 11:11] LABS: Lactate Dehydrogenase 148 U/L (120-246)
== END 2023-11-25 10:36 | disposition home or self-care (01) ==
LOC: ANHLAB 10:40
PROVIDERS: PCP Family Medicine; Visit Provider Internal Medicine Pulmonary Disease
DX: J90 Pleural effusion, not elsewhere classified (principal)
CPT/HCPCS: 36415; 83615; 84155

== ENCOUNTER 2024-01-07 13:43 | Outpatient (CLI) | payer MEDICARE, SELFPAY ==
--- NOTE | ~2024-01-07 | XR_ITS ---
EXAMINATION: XR chest 2V Exam Date/Time: 01/07/2024 13:52 CDT HISTORY: J90 - Pleural effusion, EMPHYSEMA, SOB Comparison: 11/20/2023. RESULT: Lines, tubes, and devices: Intact sternotomy wires and fixation screws. Ostial markers. Mediastinal surgical clips. Atrial occlusion device. Lungs and pleura: Increasing right mid and lower lung opacity. Increasing right costophrenic angle b lunting. Cardiomediastinal silhouette: Stable. Other: No acute osseous or upper abdominal finding. IMPRESSION: Worsening now moderate right pleural effusion with adjacent right lower lobe atelectasis. Infection n ot excluded. Reviewed, dictated and finalized at location K. IMPRESSION: Worsening now moderate right pleural effusion with adjacent right lower lobe at electasis. Infection not excluded.
== END 2024-01-07 13:44 | disposition home or self-care (01) ==
LOC: ANHIMG 13:45
PROVIDERS: PCP Family Medicine; Visit Provider Internal Medicine Pulmonary Disease
DX: J43.9 Emphysema, unspecified (principal); J90 Pleural effusion, not elsewhere classified; J98.11 Atelectasis
CPT/HCPCS: 71046

== ENCOUNTER 2024-01-16 07:56 | Outpatient (CLI) | payer MEDICARE, SELFPAY ==
[2024-01-16 08:30] VITALS: PULSE 66; O2SAT 96
[2024-01-16 08:33] VITALS: O2SAT 87
[2024-01-16 08:34] VITALS: O2SAT 88
[2024-01-16 08:35] VITALS: PULSE 93; O2SAT 92
[2024-01-16 08:45] VITALS: PULSE 64; O2SAT 95
--- NOTE | 2024-01-16 13:23 | HOMEO2EVAL ---
Evaluation was performed at [facility] Home Oxygen Evaluation RC: Home Oxygen (O2) Evaluation Start: 01/16/24 13:20 Freq: Status: Active Protocol: RPE Activity Type Activity Date Activity User E-sign Co-sign Detail Recorded Client Recorded Date Recorded By Document 01/16/24 08:30 DJO [email or web address] 01/16/24 13:23 DJO Document 01/16/24 08:33 [email or web address] [email or web address] 01/16/24 13:23 DJO Document 01/16/24 08:34 [email or web address] [email or web address] 01/16/24 13:23 DJO Document 01/16/24 08:35 [email or web address] [email or web address] 01/16/24 13:23 DJO Document 01/16/24 08:45 [email or web address] [email or web address] 01/16/24 13:23 DJO 01/16/24 01/16/24 01/16/24 08:30 08:33 08:34 Home O2 Evaluation [Oxygen] -Test Phase Resting Exercise Exercise -Oxygen Delivery Room Air Room Air Nasal Cannula -Oxygen Flow Rate (L/min) 1 [Pulse Oximetry] -Pulse Oximetry (90-100 %) 96 87 L 88 L [Pulse Rate] -Pulse Rate (60-100 beats/min) 66 [Comments] -Home Oxygen Evaluation Comments [Charges] -Evaluation Charges O2 Evaluation by Pulmonary 01/16/24 01/16/24 08:35 08:45 Home O2 Evaluation [Oxygen] -Test Phase Exercise Resting -Oxygen Delivery Nasal Cannula Room Air -Oxygen Flow Rate (L/min) 2 [Pulse Oximetry] -Pulse Oximetry (90-100 %) 92 95 [Pulse Rate] -Pulse Rate (60-100 beats/min) 93 64 [Comments] -Home Oxygen Evaluation Comments PT REQUIRES 2 L HOME O2 WITH ACTIVITY [Charges] -Evaluation Charges
--- NOTE | 2024-01-16 15:35 | P.PCNPFT_ITS ---
PFT Procedure Performed PFT Procedure Performed Spirometry with Pre/Post Bronchodilator Plethysmography (Lung Vol) Diffusing Cap (DLCO) Flow Vol Loop PFT Interpretation This is a pulmonary function test with pre and post-bronchodilator spirometry, plethysmography and diffusing capacity. The test was performed and results interpreted in accordance with the 2019 and 2005 ATS/ERS Task Force guidelines respectively using the Global Lung Function Initiative-2012 reference equations. Patient demonstrated good effort and cooperation. Reproducibility criteria were met. The quality of the pre bronchodilator spirometry maneuver was Grade A and post bronchodilator spirometry maneuver was Grade A. Findings: Spirometry: There is decreased maximal expiratory airflow at all lung volumes with concave expiratory flow tracing. The contour the inspiratory flow tracing is normal. The pre bronchodilator FVC is 2.36 L, 54% predicted. The pre bronchodilator FEV1 is 1.31 L, 40% predicted. The pre bronchodilator FEV1: FVC ratio is 56%. The post bronchodilator FVC is 2.46 L, representing a 4% increase. The post bronchodilator FEV1 is 1.35 L, representing a 3% increase. The post bronchodilator FEV1: FVC ratio is 55%. Plethysmography: The total lung capacity is 3.65 L, 51% predicted. The functional residual capacity is 1.92 L, 50% predicted. The residual volume is 1.00 L, 40% predicted. Diffusing capacity: The diffusing capacity unadjusted for hemoglobin and carboxyhemoglobin is 13.2, 50% predicted. The diffusing capacity adjusted for alveolar volume is 3.92, 102% predicted. Impression: There is a combined obstructive and restrictive ventilatory abnormality. There are no guidelines to assign the severity of obstruction and restriction with a combined abnormality. In my opinion, given the moderately concave expiratory flow tracing, decreased FEV1: FVC ratio and moderate restr ictive abnormality, I would state there is a moderately severe obstructive abnormality and a moderate restrictive abnormality resulting in a severe decrease in the FEV1. There is no significant improvement after inhaling a single dose of albuterol. The diffusing capacity unadjusted for hemoglobin and carboxyhemoglobin is moderately decreased and normalizes when adjusted for alveolar volume. There are no prior studies for comparison.
== END 2024-01-16 07:57 | disposition home or self-care (01) ==
PROVIDERS: PCP Family Medicine; Visit Provider Internal Medicine Pulmonary Disease
DX: J43.9 Emphysema, unspecified (principal); J90 Pleural effusion, not elsewhere classified
CPT/HCPCS: 94060; 94618; 94726; 94729

== ENCOUNTER 2024-05-05 13:54 | Outpatient (CLI) | payer MEDICARE, SELFPAY ==
--- NOTE | ~2024-05-05 | XR_ITS ---
CHEST RADIOGRAPH, PA AND LATERAL CLINICAL HISTORY: J90 - Pleural effusion, not elsewhere classified.F/U HX COPD . COMPARISON: 01/07/2024 TECHNIQUE: PA and lateral views of the chest. FINDINGS Sternal wires and mediastinal clips are identified, the wires are midline and intact. Amplatzer device projecting over the left atrial appendage. Endovascular stent ejecting over the superior mediastinum. Redemonstration of a large right-sided pleural effusion, largely unchanged from previous examination dated 01/07/2024 The remainder of the lungs are clear. IMPRESSION: Large right-sided pleural effusion without focal infiltrate. Reviewed, dictated and finalized at location A. ER STOCK GRADER
--- OUTSIDE RECORDS SUMMARY | 2024-05-07 01:34 | XMS_ITS | Referral Summary ---
Author Organization [facility] Address [address] [place] [id number] Care Team Providers Care Geological Drafter Name Role Phone Thomas Garza MD Primary Care Provider [phone] Encounters Date Type Department Care Team Description 05/05/2024 Telephone [facility] Medical [facility] Cardiology [address] [place] [id number] Dennis Hill MD 03/01/2024 8:15 AM BLASTING GANG MINER Ancillary Procedure [facility] Cardiology [address] [place] [phone] Nonrheumatic mitral valve regurgitation from Last 3 Months Allergies No known active allergies Medications albuterol HFA (PROVENTIL HFA,VENTOLIN HFA,PROAIR HFA) 90 mcg/actuation inhaler Inhale 2 puffs every 6 (six) hours as needed 022 Active budesonide (PULMICORT) 0.5 mg/2 mL nebulizer solution USE 1 VIAL (0.5MG) IN NEBULIZER EVERY 12 HOURS (RINSE AND SPIT AFTER USE) 022 Active ipratropium-albu teroL (DUO-NEB) 0.5-2.5 mg/3 mL nebulizer solutionIndicati ons:Chronic Obstructive Pulmonary Disease with Bronchospasms Take 3 mL by nebulization every 6 (six) hours 180 mL 022 Active metoprolol (LOPRESSOR) 100 mg tabletIndication s:Persistent atrial fibrillation (HCC) Take 1 tablet (100 mg total) by mouth 2 (two) times a day 180 tablet 3 023 Active rOPINIRole (REQUIP) 2 mg tablet Take 1 tablet (2 mg total) by mouth 3 (three) times a day 023 Active aspirin 81 mg chewable tabletIndication s:coronary artery disease Take 1 tablet (81 mg total) by mouth daily 30 tablet 11 023 Active baclofen (LIORESAL) 10 mg tablet TAKE 1 TABLET BY MOUTH TWICE DAILY NEEDED FOR MUSCLE SPASM USE WITH CAUTION DUE TO DROWSINESS 024 Active furosemide (LASIX) 40 mg tablet Take 1 tablet by mouth twice daily 180 tablet 1 024 Active atorvastatin (LIPITOR) 40 mg tabletIndication s:Coronary artery disease involving [place] coronary artery of [place] heart without angina pectoris Take 1 tablet by mouth nightly 90 tablet 3 024 Active empagliflozin (Jardiance) 10 mg tablet Take 1 tablet (10 mg total) by mouth daily 90 tablet 1 024 Active clopidogreL (PLAVIX) 75 mg tablet Take 1 tablet by mouth once daily 90 tablet 025 Active dilTIAZem XR (DILT-XR) 180 mg 24 hr capsule Take 1 capsule by mouth once daily 90 capsule 2 025 Active clopidogreL (PLAVIX) 75 mg tablet Take 1 tablet by mouth once daily 30 tablet 11 024 2024 Discontinued DILT-XR 180 mg 24 hr capsule TAKE 1 CAPSULE BY MOUTH ONCE DAILY . APPOINTMENT REQUIRED FOR FUTURE REFILLS 30 capsule 024 2024 Discontinued Active Problems Problem Noted Date Diagnosed Date Presence of Amulet left atrial appendage closure device 03/28/2023 A-fib (CMS/HCC) 02/21/2023 Other thrombophilia 01/21/2023 Acute ischemic stroke 04/05/2022 Carotid stenosis, left 04/04/2022 Overview (04/09/2022): Added automatically from request for surgery [id number] Morbid (severe) obesity due to excess calories 1 Chronic anticoagulation 07/11/2021 Chronic diastolic heart failure 07/11/2021 Atrial fibrillation (CMS/HCC) 12/14/2020 Low back pain 10/20/2020 Subclavian artery stenosis, left ([facility]) 06/26 Overview (06/26/2020): Added automatically from request for surgery [id number] Hx of CABG 02/16/[address] elevation myocardial infarction ([place]) 02/16/2019 Postoperative atrial fibrillation ([place]) 08/2018 Coronary artery disease of n ative heart with stable angina pectoris 01/01/2019 Overview (01/01/2019): Added automatically from request for surgery [id number] Ventricular fibrillation ([place]) Resolved Problems Problem Noted Date Diagnosed Date Resolved Date ST elevation myocardial infa rction involving right coronary artery 02/16/2019 Immunizations Name Administration Dates Next Due Influenza, Quadrivalent, Hig h Dose, Preservative Free, Intrr 04/08/2022,02/08/2020 Influenza, Quadrivalent, Spl it, Preservative Free, Intramuscular 01/28/2018 Influenza, Trivalent, High D ose, Split, Preservative Free, Intramuscular 01/14/2019 Social History Tobacco Use Types Packs/Day Years Used Date Smoking Tobacco: Former Cigarettes Q uit: 2014 Smokeless Tobacco: Never Tobacco Cessation:Counseling Given: Not Answered AUDIT-C Answer Date Recorded Frequency of Alcohol Consumption Not on file 02/14/2023 Q2: How many drinks containi ng alcohol do you have on a typical day when you are drinking? Patient does not drink Frequency of Binge Drinking Not on file 06/2022 PHQ-2 Answer Date Recorded PHQ-2 Total Score (If total score is 3 or more points, staff should administer the PHQ-9) 0 04/05/2022 Personal Safety Answer Date Recorded Have you ever been in or are you currently in a harmful physical or emotional relationship or is someone making you feel afraid or unsafe? Denies 02/21/2023 Sex and Gender Information Value Date Recorded Sex Assigned at Not on file Legal Sex Male 11:33 AM CDT Gender Identity Not on file Sexual Orientation Not on file Last Filed Vital Signs Vital Sign Reading Time Taken Comments Blood Pressure 135/74 03/01/2024 8:58 AM BLASTING GANG MINER Pulse 77 01/16/2024 10:28 AM CDT Temperature 37.3 ??C (99.2 ??F) 02/22/2023 8:15 AM CS T Respiratory Rate 18 02/22/2023 8:15 AM BLASTING GANG MINER Oxygen Saturation 94% 01/16/2024 10:28 AM CDT Inhaled Oxygen Concentration - - Weight 104.8 kg (231 lb) 01/16/2024 10:28 AM CDT Height 180.3 cm (5' 11 ) 01/16/2024 10:28 AM CDT Body Mass Index 32.22 01/16/2024 10:28 AM CDT Plan of Treatment Not on file Medical Devices Implanted Type Area Switchboard Clerk Device Identifier Shelf Expiration Date Model / Serial / Lot Von Reese, Level One Thoracic, Sterile Plate, Sternal, Lss, Str Implanted:Qty: 1 on 01/01/2019 by Arash Worrell MD at [facility] Plate N/A: Sternum Jan 06/17/2023 [id number] 0-72 / / [id number] -023-17 Drill-Free Maxdrive Threadlock Ts 2.3mm 17mm Self Retaining - [id number] Implanted:Qty: 11 on 01/01/2019 by Arash Worrell MD at [facility] N/A: Sternum VonHugh 24-023-1 7 / / Medtronic Inc Visi-Pro 7mm 27mm 135cm Radiopaque Balloon Expand Radial Strength - [id number] Implanted:Qty: 1 on 06/30/2020 by Dennis Hill MD at [facility] Med[employer]onic Inc [id number] / / [employer]es[employer] Yasargil 10.3mm Permanent Mri Safe Nonferromagnetic Spring Latex Free [id number] - [id number] - [id number] Implanted:Qty: 1 on 04/11/2022 by Jazz Wilkes MD at [facility] [employer] [id number] 10/11/2031 FE7 [id number] / [id number] / Cardiva [employer] Inc Vascade Mvp 6-12fr Venous Closure [id number] - [id number] Implanted:Qty: 1 on 02/21/2023 by Dennis Hill MD at [facility] [employer] 10/25/2024 [id number] / / [id number] Damian [employer] Device Clsr Perclose Prostyle Sut-Mediatd Closure-Repair Sys [id number] - [id number] Implanted:Qty: 1 on 02/21/2023 by Dennis Hill MD at [facility] [employer] 11/11/2024 [id number] / / [id number] [employer] Percutaneous Transcatheter Amplatzer Amulet 25mm 0-[id number] - [id number] Implanted:Qty: 1 on 02/21/2023 by Dennis Hill MD at [facility] Left: Atrial Appendage [employer] 04/13/2027 9-[id number] 10-025 / / [id number] Explanted Type Area Switchboard Clerk Device Identifier Shelf Expiration Date Model / Serial / Lot Medtronic Card Vasc Surgery [id number] [place] 1.5mm 14mm Radiopaque Bulb Tapered Tip Soft - [id number] Explanted:Qty: 1 on 01/01/2019 at [facility] [employer] Inc 09/11/2021 311 [id number] / / Medtronic Card Vasc Surgery [address] [place] 2mm 14mm Radiopaque Bulb Tapered Tip Soft Intracoronary - [id number] Explanted:Qty: 1 on 01/01/2019 at [facility] [employer]onic Inc 09/11/2021 312 00 / / [employer] Yasargil 5mm Straight Permanent Cerebral Mini 4mm Opening Clip Latex Free Vi280s - [id number] - [id number] Explanted:Qty: 1 on 04/11/2022 by Jazz Wilkes MD at [facility] [employer] [id number] 04/23/2031 [id number] / [id number] / [employer] Yasargil 10.3mm Permanent Mri Safe Nonferromagnetic Spring Latex Free [id number] - [id number] - [id number] Explanted:Qty: 1 on 04/11/2022 by Jazz Wilkes MD at [facility] [employer] [id number] 02/07/2031 [id number] / [id number] / Procedures Procedure Name Priority Date/Time Associated Diagnosis Comments TRANSTHORACIC ECHO (TTE) COMPLETE W DOPPLER/CF WO CONTRAST Routine 03/01/2024 8:58 AM BLASTING GANG MINER Nonrheumatic mitral valve regurgitation from Last 3 Months Results * TRANSTHORACIC ECHO (TTE) COMPLETE W DOPPLER/CF WO CONTRAST (03/01/2024 8:58 AM BLASTING GANG MINER) Anatomical Region Laterality Modality Ultrasound 03/01/2024 8:43 AM BLASTING GANG MINER Narrative 03/01/2024 9:56 AM BLASTING GANG MINER [facility] Medical Group Cardiology [address], [place] [address] [address], [place] [address] P:[phone] P:[phone] Echocardiographic Report Patient Name: RAN DAI R : 1950 Study Date: 03/01/2024 8:43:52 AM Gender: M Tech: Location: [facility] Provider: RADHA HERNANDEZ ?Height(Cm): 180 BSA: 2.29 Weight(Kg): 104.8 Heart Rate: 79 BP: 135 / 74 Quality: Good Order Provider: RADHA HERNANDEZ PROCEDURES: Echocardiographic Report: Transthoracic echocardiogram with complete 2D, M-Mode, and color Doppler examination. With Strain Analysis. INDICATIONS: I34.0 Nonrheumatic mitral (valve) insufficiency. Measurements: 2D/M Mode ?Doppler Measurement ?Value ?Normal Range ?Measurement ?Value ?Normal Range LVIDd 2D ? 4.53 ? [ 4.20 - 5.80 ] cm ?BREANNA Vmax ? 1.79 ? [ 2.00 - 4.00 ] cm2 LVIDs 2D ? 2.34 ? [ 2.50 - 4.00 ] cm ?AV Mean PG ? 5 ?mmHg LVPWd 2D ? 1.60 ? [ 0.60 - 1.00 ] cm ?AV Peak Viet ?1.54 ? [ 1.00 - 1.70 ] m/s IVSd 2D ?1.56 ? [ 0.60 - 1.00 ] cm ?AV Peak PG ? 9 ?mmHg LA Volume Index ?29 ? [ 16 - 34 ] cc/m2 ? AV VTI ? 31.73 ?cm LVOT Diam ?2.12 ?[ 1.70 - 2.10 ] cm LVOT Peak Viet ?0.78 ?[ 0.70 - 1.10 ] m/s LVOT VTI ? 17.17 ? cm MV E Peak Viet ?1.24 ?[ 0.60 - 1.30 ] m/s MV A Peak Viet ?0.37 ?[ 1.00 - 1.20 ] m/s MV Decel Time ?214 ? [ 104 - 258 ] msec TR Peak Viet ?2.87 ?[ 1.00 - 2.80 ] m/s TR Peak PG ? 33 ?mmHg Lateral E` ? 0.09 ?[ 0.10 - 0.15 ] m/s E` ? 0.07 ?m/s E/E` ? 13 Measurement ?Value ?Normal Range ?Measurement ?Value ?Normal Range 2D/M Mode ?Doppler - FINDINGS: Interpretation Site: Exam was interpreted at [facility]. Left Ventricle: Normal left ventricular systolic function. No focal wall motion abnormalities. Normal left ventricular size. Moderate concentric left ventricular hypertrophy. Diastolic dysfunction is present. Ejection fraction is measured at 63 %. Global Longitudinal Strain is -17 %. GLS is abnormal. Right Ventricle: Normal right ventricular size. Normal right ventricular systolic function. Left Atrium: There is mild enlargement of left atrium. Right Atrium: The right atrium is normal in size. Atrial Septum: Normal atrial septum. Mitral Valve: Mild mitral annular calcification. Mild to moderate mitral valve regurgitation. There is no hemodynamically significant mitral stenosis by Doppler. Aortic Valve: Mild aortic stenosis. Mean gradient of 5.0 mmHg. Valve area of 1.8 cm2. Aortic cusps appear mildly sclerotic. Trileaflet aortic valve. Mild aortic valve regurgitation. Tricuspid Valve: Normal appearance of the tricuspid valve. Estimated peak RVSP is 38 mmHg. Mild tricuspid regurgitation. Pulmonic Valve: Normal appearance of the pulmonic valve. No evidence of pulmonic regurgitation. Pericardium: Normal pericardium with no significant pericardial effusion. Aorta: Sinus of Valsalva is normal. IVC: Normal size and normal respiratory collapse consistent with normal right atrial pressure (<5 mmHg). Pulmonary Artery: Normal pulmonary artery size. CONCLUSIONS: Normal left ventricular systolic function. No focal wall motion abnormalities. Normal left ventricular size. Moderate concentric left ventricular hypertrophy. Diastolic dysfunction is present. Ejection fraction is measured at 63 %. Global Longitudinal Strain is -17 %. GLS is abnormal. There is mild enlargement of left atrium. Left atrial appendage occlusion device in place. Mild mitral annular calcification. Mild to moderate mitral valve regurgitation. Mild aortic stenosis. Mean gradient of 5.0 mmHg. Valve area of 1.8 cm2. Aortic cusps appear mildly sclerotic. Trileaflet aortic valve. Mild aortic valve regurgitation. Estimated peak RVSP is 38 mmHg. Mild tricuspid regurgitation. Atrial fibrillation. Electronically Signed By: Dr. Олег Dick [facility] 2024-03-01 09:54:58 BLASTING GANG MINER Procedure Note Олег Dick MD - 03/01/2024 [facility] Medical Group Cardiology [address] [facility] [address], [place] [address] [address] [facility] [facility] [address], [id number] [address] P:[phone] P:[phone] Echocardiographic Report Patient Name: RAN DAI R : 1950 Study Date: 03/01/2024 8:43:52 AM Gender: M Tech: Location: [place] Ref Provider: RADHA HERNANDEZ Height(Cm): 180 BSA: 2.29 Weight(Kg): 104.8 Heart Rate: 79 BP: 135 / 74 Quality: Good Order Provider: RADHA HERNANDEZ PROCEDURES: Echocardiographic Report: Transthoracic echocardiogram with complete 2D, M-Mode, and color Dopplerexamination. With Strain Analysis. INDICATIONS: I34.0 Nonrheumatic mitral (valve) insufficiency. Measurements: 2D/M ModeDoppler Measurement Value Normal Range MeasurementValue Normal Range LVIDd 2D 4.53 [ 4.20 - 5.80 ] cm BREANNA Vmax1.79 [ 2.00 - 4.00 ] cm2 LVIDs 2D 2.34 [ 2.50 - 4.00 ] cm AV Mean PG5 mmHg LVPWd 2D 1.60 [ 0.60 - 1.00 ] cm AV Peak Vel1.54 [ 1.00 - 1.70 ] m/s IVSd 2D 1.56 [ 0.60 - 1.00 ] cm AV Peak PG9 mmHg LA Volume Index 29 [ 16 - 34 ] cc/m2 AV VTI31.73 cm LVOT Diam 2.12 [ 1.70 - 2.10 ] cm LVOT Peak Viet 0.78 [ 0.70 - 1.10 ] m/s LVOT VTI 17.17 cm MV E Peak Viet 1.24 [ 0.60 - 1.30 ] m/s MV A Peak Viet 0.37 [ 1.00 - 1.20 ] m/s MV Decel Time 214 [ 104 - 258 ] msec TR Peak Viet 2.87 [ 1.00 - 2.80 ] m/s TR Peak PG 33 mmHg Lateral E` 0.09 [ 0.10 - 0.15 ] m/s E` 0.07 m/s E/E` 13 Measurement Value Normal Range MeasurementValue Normal Range 2D/M ModeDoppler - FINDINGS: Interpretation Site: Exam was interpreted at [facility]. Left Ventricle: Normal left ventricular systolic function. No focal wall motionabnormalities. Normal left ventricular size. Moderate concentric left ventricular hypertrophy.Diastolic dysfunction is present. Ejection fraction is measured at 63 %. GlobalLongitudinal Strain is -17 %. GLS is abnormal. Right Ventricle: Normal right ventricular size. Normal right ventricular systolicfunction. Left Atrium: There is mild enlargement of left atrium. Right Atrium: The right atrium is normal in size. Atrial Septum: Normal atrial septum. Mitral Valve: Mild mitral annular calcification. Mild to moderate mitral valveregurgitation. There is no hemodynamically significant mitral stenosis by Doppler. Aortic Valve: Mild aortic stenosis. Mean gradient of 5.0 mmHg. Valve area of 1.8 cm2.Aortic cusps appear mildly sclerotic. Trileaflet aortic valve. Mild aortic valveregurgitation. Tricuspid Valve: Normal appearance of the tricuspid valve. Estimated peak RVSP is 38 mmHg.Mild tricuspid regurgitation. Pulmonic Valve: Normal appearance of the pulmonic valve. No evidence of pulmonicregurgitation. Pericardium: Normal pericardium with no significant pericardial effusion. Aorta: Sinus of Valsalva is normal. IVC: Normal size and normal respiratory collapse consistent with normal rightatrial pressure (<5 mmHg). Pulmonary Artery: Normal pulmonary artery size. CONCLUSIONS: Normal left ventricular systolic function. No focal wall motionabnormalities. Normal left ventricular size. Moderate concentric left ventricular hypertrophy.Diastolic dysfunction is present. Ejection fraction is measured at 63 %. GlobalLongitudinal Strain is -17 %. GLS is abnormal. There is mild enlargement of left atrium. Left atrial appendage occlusiondevice in place. Mild mitral annular calcification. Mild to moderate mitral valveregurgitation. Mild aortic stenosis. Mean gradient of 5.0 mmHg. Valve area of 1.8 cm2.Aortic cusps appear mildly sclerotic. Trileaflet aortic valve. Mild aortic valveregurgitation. Estimated peak RVSP is 38 mmHg. Mild tricuspid regurgitation. Atrial fibrillation. Electronically Signed By: Dr. Олег Dick [facility] 2024-03-01 09:54:58 BLASTING GANG MINER Radha Hernandez NP CV ECHO PROCEDURES Final Result from Last 3 Months [facility] MEDICARE adQuota [facility] MEDICARE MEDICARE SOLUTIONS Advance Directives For more information, please contact: [phone] * Full Code (Latest Code Status on File) Date Activated Date Inactivated Comments 04/11/2022 7:20 PM 04/13/2022 7:25 PM * Full Code Date Activated Date Inactivated Comments 04/05/2022 9:54 PM 04/11/2022 7:20 PM * Full Code Date Activated Date Inactivated Comments 01/01/2019 7:39 PM 01/14/2019 7:57 PM Care Teams Geological Drafter Relationship Specialty Start Date End Date Thomas Garza MD PCP - General 01/01/19
--- OUTSIDE RECORDS SUMMARY | 2024-05-07 01:34 | XMS_ITS | Encounter Summary ---
Author Organization [facility] Healthcare Address [address] [place] [address] Care Team Providers Care Sustainability Specialist Name Role Phone Thomas Garza MD Primary Care Provider [phone] Encounter Details Date Type Department Care Team (Late st Contact Info) Description 05/05/2024 Telephone [facility] Medical Group Cardiology [address] [facility] [address] [place] [address] Dennis Hill MD [address] [id number] Social History Tobacco Use Types Packs/Day Years Used Date Smoking Tobacco: Former Cigarettes Q uit: 2015 Smokeless Tobacco: Never AUDIT-C Answer Date Recorded Frequency of Alcohol [...] on file Sexual Orientation Not on file documented as of this encounter Miscellaneous Notes * Telephone Encounter - Claudia Zayas MA - 05/05/2024 12:44 PM CST Patient was given samples in office today and advised it is alright to start again. Provided patient assistance application with instructions for completion. Patient voiced understanding and appreciation. Patient to bring completed application with documentation back to the office. MANAGER * Telephone Encounter - Sonja Salinas - 05/05/2024 12:32 PM CST Pt has not been taking his Jardiance for a month due to weather and cost. Pt is wondering if it is ok to start back up or if there are other options. [phone] is the number to call back MANAGER documented in this encounter Plan of Treatment Not on file documented as of this encounter Visit Diagnoses Not on filedocumented in this encounter Care Teams Sustainability Specialist Relationship Specialty Start Date End Date Thomas Garza MD PCP - General 01/01/19 documented as of this encounter
--- OUTSIDE RECORDS SUMMARY | 2024-05-07 01:34 | XMS_ITS | Clinical Summary ---
Author Organization [facility] Address [address] [place] [address] Care Team Providers Care Researcher Name Role Phone Thomas Garza MD Primary Care Provider + [phone] Allergies No known active allergies Medications albuterol [...] SPASM USE WITH CAUTION DUE TO DROWSINESS Active furosemide (LASIX) 40 mg tablet Take 1 tablet by mouth twice daily 180 tablet 1 024 Active atorvastatin (LIPITOR) 40 mg tabletIndication s:Coronary artery disease involving [place] coronary artery of [place] heart without angina pectoris Take 1 tablet by mouth nightly 90 tablet 3 Active empagliflozin (Jardiance) 10 mg tablet Take [...] left atrial appendage closure device 03/28/2023 A-fib ([facility]) 02/21/2023 Other thrombophilia 01/21/2023 Acute ischemic stroke 04/05/2022 Carotid stenosis, left 04/04/2022 Overview (04/09/2022): Added automatically from request for surgery [id number] Morbid (severe) obesity due to excess calories 1 Chronic anticoagulation 07/11/2021 Chronic diastolic heart failure 07/11/2021 Atrial fibrillation ([facility]/HCC) 12/14/2020 Low back pain 10/20/2020 Subclavian artery stenosis, left ([facility]) 06/26 Overview (06/26/2020): Added automatically from request for surgery [id number] Hx of CABG 02/16/[address] elevation myocardial infarction (S DAVE) 02/16/2019 Postoperative atrial fibrillation ([facility]/HCC) 08/2018 Coronary artery disease of n ative heart with stable angina pectoris 01/01/2019 Overview (01/01/2019): Added automatically from request for surgery [id number] Ventricular fibrillation ([facility]) Resolved Problems Problem Noted Date Diagnosed Date Resolved Date ST elevation myocardial infa rction involving right coronary artery 02/16/2019 Encounters Date Type Department Care Team Description 05/05/2024 Telephone [facility] Medical [facility] Cardiology [address] [place] [address] Dennis Hill MD 03/01/2024 8:15 AM OPERATING ENGINEER APPRENTICE Ancillary Procedure [facility] Cardiology [address] [place] [address] Nonrheumatic mitral valve regurgitation from Last 3 Months Immunizations Name Administration Dates Next Due Influenza, Quadrivalent, Hig h Dose, Preservative Free, Intrr 04/08/2022,02/08/2020 Influenza, Quadrivalent, Spl it, Preservative Free, Intramuscular 01/28/2018 Influenza, Trivalent, High D ose, Split, Preservative Free, Intramuscular 01/14/2019 Surgical History Surgery Date Site/Laterality Comments IR PICC LINE PLACEMENT > 5 YEARS 01/07/2019 N/A CORONARY ARTERY BYPASS GRAFT 12/14/2019 - 01/12/2020 CARDIAC STENT PLACEMENT 04/14/2020 - 04/13/2021 REVISION UROSTOMY CUTANEOUS 04/14/2022 - 04/13/2023 Urostomy CAROTID ENARTERECTOMYY Left LYMPH NODE DISSECTION Right neck Medical History Medical History Date Comments ST elevation myocardial infa rction involving right coronary artery ([facility]) 2018 Sleep apnea CPAP with 4 L O2 Coronary artery disease COPD (chronic obstructive pu lmonary disease) ([facility]) Atrial fibrillation ([facility]) ([facility]) Chest pain Syncope 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 Dependence on supplemental oxygen 2L , with increase PRN; 4L with CPAP CHF (congestive heart failur e) ([facility]) ([facility]) Chronic kidney disease Urinary retention urostomy Peripheral vascular disease ([facility]) left carotid Anemia GI bleeding Hypothyroidism Stroke ([facility]) 03/2022 Restless legs syndrome Dry eye Generalized weakness Edema Bilateral lower extremity, weeping Family History Medical History Relation Name Comments Alcohol abuse Father Early Father Cancer Maternal Grandfather Heart disease Maternal Grandmother Cancer Mother Relation Name Status Comments Father Maternal Grandfather Maternal Grandmother Mother Social History Tobacco Use Types Packs/Day Years Used Date Smoking Tobacco: Former Cigarettes Q uit: 2015 Smokeless Tobacco: Never Tobacco Cessation:Counseling Given: Not [...] on file Sexual Orientation Not on file Obstetrics History Last Filed Vital Signs Vital Sign Reading Time Taken Comments Blood Pressure 135/74 03/01/2024 8:58 AM OPERATING ENGINEER APPRENTICE Pulse 77 01/16/2024 10:28 AM CDT Temperature 37.3 ??C (99.2 ??F) 02/22/2023 8:15 AM CS T Respiratory Rate 18 02/22/2023 8:15 AM OPERATING ENGINEER APPRENTICE Oxygen Saturation 94% 01/16/2024 10:28 AM CDT Inhaled Oxygen Concentration - - Weight 104.8 kg (231 lb) 01/16/2024 10:28 AM CDT Height 180.3 cm (5' 11 ) 01/16/2024 10:28 AM CDT Body Mass Index 32.22 01/16/2024 10:28 AM CDT Plan of Treatment Health Maintenance Due Date Last Done Comments Colon Cancer Screening-Colonoscopy 1950 Hepatitis C Screening 1950 Pneumococcal vaccine 65+ (1 of 2 - PCV) 01/19/1958 DTaP/Tdap/Td Vaccine (1 - Tdap) 01/19/1963 Hepatitis B Screening 01/19/1970 Zoster Vaccine (1 of 2) 01/19/2002 Abdominal Aortic Aneurysm (A AA) Screen 01/19/2017 Well Visit 65+ 01/19/2017 Depression Screening 04/04/2023 04/04/2022, 04/04/20 Influenza Vaccine (#1) 2023 , 02/08/2020, 01/14/2019, Additional history exists Fall Risk Assessment 02/23/2024 02/22/2023 Medical Devices Implanted Type Area Automotive Service Consultant Device Identifier Shelf Expiration Date Model / Serial / Lot Robert Hugh, Level One Thoracic, Sterile Plate, Sternal, Lss, Str Implanted:Qty: 1 on 01/01/2019 by Arash Worrell MD at [facility] Plate N/A: Sternum Jan 06/17/2023 24-039-3 0-72 / / [id number] VonHugh 24-023-17 Drill-Free Maxdrive Threadlock Ts 2.3mm 17mm Self Retaining - [id number] Implanted:Qty: 11 on 01/01/2019 by Arash Worrell MD at [facility] N/A: [facility] 24-023-1 7 / / Medtronic Inc Visi-Pro 7mm 27mm 135cm Radiopaque Balloon Expand Radial Strength - [id number] Implanted:Qty: 1 on 06/30/2020 by Dennis Hill MD at [facility] Instant Information[employer] Inc [id number] -27-135 / / Aesculap Inc Yasargil 10.3mm Permanent Mri Safe Nonferromagnetic Spring Latex Free Yr396f - S17vnj - [id number] Implanted:Qty: 1 on 04/11/2022 by Jazz Wilkes MD at [facility] [employer] Inc [id number] 10/11/2031 FE7 84K / 17VNJ / Orthopaedic [employer]nergy[employer] Inc Vascade Mvp 6-12fr Venous Closure 924-549p-20k - [id number] Implanted:Qty: 1 on 02/21/2023 by Dennis Hill MD at [facility] [employer] Inc 10/25/2024 800-612C -10U / / [id number] Damian V[employer] Device Clsr Perclose Prostyle Sut-Mediatd Closure-Repair Sys 12396-55 - [id number] Implanted:Qty: 1 on 02/21/2023 by Dennis Hill MD at [facility] Vascular 11/11/2024 [id number] / / [id number] [employer] Percutaneous Transcatheter Amplatzer Amulet 25mm 7-Ais5-228-025 - [id number] Implanted:Qty: 1 on 02/21/2023 by Dennis Hill MD at [facility] Left: Atrial Appendage [employer] 04/13/2027 9-ACP2-0 / / [id number] Explanted Type Area Automotive Service Consultant Device Identifier Shelf Expiration Date Model / Serial / Lot Medtronic Card Vas Surgery [id number] [place] 1.5mm 14mm Radiopaque Bulb Tapered Tip Soft - [id number] Explanted:Qty: 1 on 01/01/2019 at [facility] Instant Informationtronic Inc 09/11/2021 311 50 / / Medtronic Card Vas Surgery [id number] [place] 2mm 14mm Radiopaque Bulb Tapered Tip Soft Intracoronary - [id number] Explanted:Qty: 1 on 01/01/2019 at [facility] Medtronic Inc 09/11/2021 312 00 / / Aesculap Inc Yasargil 5mm Straight Permanent Cerebral Mini 4mm Opening Clip Latex Free Fn653l - S17lbp - [id number] Explanted:Qty: 1 on 04/11/2022 by Jazz Wilkes MD at [facility] [employer] [id number] 04/23/2031 [id number] / 17LBP / Aesculap Inc Yasargil 10.3mm Permanent Mri Safe Nonferromagnetic Spring Latex Free Mm676p - S17aic - [id number] Explanted:Qty: 1 on 04/11/2022 by Jazz Wilkes MD at [facility] [employer] [id number] 02/07/2031 [id number] / 17AIC / Procedures Procedure Name Priority Date/Time Associated Diagnosis Comments TRANSTHORACIC ECHO (TTE) COMPLETE W DOPPLER/CF WO CONTRAST Routine 03/01/2024 8:58 AM OPERATING ENGINEER APPRENTICE Nonrheumatic mitral valve regurgitation from Last 3 Months Results * TRANSTHORACIC ECHO (TTE) COMPLETE W DOPPLER/CF WO CONTRAST (03/01/2024 8:58 AM OPERATING ENGINEER APPRENTICE) Anatomical Region Laterality Modality Ultrasound 03/01/2024 8:43 AM OPERATING ENGINEER APPRENTICE Narrative 03/01/2024 9:56 AM OPERATING ENGINEER APPRENTICE [facility] Medical Group Cardiology [address] [facility] [address], [place] [address] [address], [place] [address] P:[phone] P:[phone] Echocardiographic Report Patient Name: RAN DAI R : 1950 Study Date: 03/01/2024 8:43:52 AM Gender: M Tech: Location: [facility] Provider: RADHA BLANCO ?Height(Cm): 180 BSA: 2.29 Weight(Kg): 104.8 Heart Rate: 79 BP: 135 / 74 Quality: Good Order Provider: RADHA BLANCO PROCEDURES: Echocardiographic Report: Transthoracic echocardiogram with complete [...] FINDINGS: Interpretation Site: Exam was interpreted at [facility]. Left Ventricle: Normal left ventricular systolic function. [...] fibrillation. Electronically Signed By: Dr. Олег Dick [facility] 2024-03-01 09:54:58 OPERATING ENGINEER APPRENTICE Procedure Note Олег Dick MD - 03/01/2024 [facility] Medical Group Cardiology [address] [facility] [address], [place] [address] [address] [facility] [address] [address] P:[phone] P:[phone] Echocardiographic Report Patient Name: RAN DAI R : 1950 Study Date: 03/01/2024 8:43:52 AM Gender: M Tech: Location: [place] Ref Provider: RADHA BLANCO Height(Cm): 180 BSA: 2.29 Weight(Kg): 104.8 Heart Rate: 79 BP: 135 / 74 Quality: Good Order Provider: RADHA BLANCO PROCEDURES: Echocardiographic Report: Transthoracic echocardiogram with complete [...] FINDINGS: Interpretation Site: Exam was interpreted at [facility]. Left Ventricle: Normal left ventricular systolic function. [...] fibrillation. Electronically Signed By: Dr. Олег Dick [facility] 2024-03-01 09:54:58 OPERATING ENGINEER APPRENTICE Radha Blanco NP CV ECHO PROCEDURES Final Result from Last 3 Months Insurance [facility] MDCR HMO REF [facility] MEDIC[facility] Address: [facility] [address] [place] [address] MEDICARE [employer] [facility] MEDICARE Address: [address] [address] [place] [address] [facility] MEDICARE MEDICARE [employer] Advance Directives For more information, please contact: [phone] * Full Code (Latest Code Status on File) Date Activated Date Inactivated Comments 04/11/2022 7:20 PM 04/13/2022 7:25 PM * Full Code Date Activated Date Inactivated Comments 04/05/2022 9:54 PM 04/11/2022 7:20 PM * Full Code Date Activated Date Inactivated Comments 01/01/2019 7:39 PM 01/14/2019 7:57 PM Care Teams Researcher Relationship Specialty Start Date End Date Thomas Garza MD PCP - General 01/01/19
--- OUTSIDE RECORDS SUMMARY | 2024-05-07 01:34 | XMS_ITS | CONTINUITY OF CARE DOCUMENT ---
Author Name mor mor Address Unknown Organization [facility] Address [address] [address] [place] [address] Phone [phone] Care Team Providers Care Snubber Name Role Phone Ravindra OTTO, Salvatore Unavailable [phone] ANNAMARIE OTTO, ANTONIO F Unavailable INSURANCE PROVIDERS Payer name Policy type / Coverage type [place] red alliance party ID [facility] [id number]
== END 2024-05-05 13:55 | disposition home or self-care (01) ==
PROVIDERS: PCP Family Medicine; Visit Provider Internal Medicine Pulmonary Disease
DX: J90 Pleural effusion, not elsewhere classified (principal)
CPT/HCPCS: 71046

== ENCOUNTER 2024-08-04 07:38 | Outpatient (CLI) | payer MEDICARE, SELFPAY ==
--- OUTSIDE RECORDS SUMMARY | 2024-08-04 07:42 | XMS_ITS | CONTINUITY OF CARE DOCUMENT ---
Author Name mor joibony Address Unknown Organization [facility] Address [address] [facility] [address] [place] [address] Phone [phone] Care Team Providers Care Bean Sorter Name Role Phone Ravindra OTTO, Salvatore Unavailable ANNAMARIE OTTO, ANTONIO F Unavailable INSURANCE PROVIDERS Payer name Policy type / Coverage type [place] red green party ID [facility] [id number] 1
--- OUTSIDE RECORDS SUMMARY | 2024-08-04 07:43 | XMS_ITS | Referral Summary ---
Author Organization [facility] Address [address] [place] [address] Care Team Providers Care Medical Csr Name Role Phone Thomas Garza MD Primary Care Provider [phone] Encounters Date Type Department Care Team Description 07/01/2024 Documentation [facility] Medical Group Cardiology [address] [place] [address] Kelle Mock MA from Last 3 Months Allergies No known [...] 6 (six) hours 180 mL 022 Active rOPINIRole (REQUIP) 2 mg tablet Take [...] WITH CAUTION DUE TO DROWSINESS 024 Active atorvastatin (LIPITOR) 40 mg tabletIndication s:Coronary artery disease involving [place] coronary artery of [place] heart without angina pectoris Take 1 tablet by mouth nightly 90 tablet 3 024 Active empagliflozin (Jardiance) 10 mg tablet Take 1 tablet (10 mg total) by mouth daily 90 tablet 1 024 Active dilTIAZem XR (DILT-XR) 180 mg 24 hr capsule Take 1 capsule by mouth once daily 90 capsule 2 025 Active metoprolol (LOPRESSOR) 100 mg tabletIndication s:Persistent atrial fibrillation (HCC) Take 1 tablet by mouth twice daily 180 tablet 025 Active furosemide (LASIX) 40 mg tablet Take 1 tablet by mouth twice daily 180 tablet 025 Active clopidogreL (PLAVIX) 75 mg tablet Take 1 tablet by mouth once daily 90 tablet 025 Active furosemide (LASIX) 40 mg tablet Take 1 tablet by mouth twice daily 180 tablet 1 024 2024 Discontinued clopidogreL (PLAVIX) 75 mg tablet Take 1 tablet by mouth once daily 90 tablet 025 2024 Discontinued Active Problems Problem Noted Date Diagnosed Date Presence of Amulet left atrial appendage closure device 03/28/2023 A-fib 02/21/2023 Other thrombophilia 01/21/2023 Acute ischemic stroke 04/05/2022 Carotid stenosis, left 04/04/2022 Overview (04/09/2022): Added automatically from request for surgery [id number] Morbid (severe) obesity due to excess calories 1 Chronic anticoagulation 07/11/2021 Chronic diastolic heart failure 07/11/2021 Atrial fibrillation 12/14/2020 Low back pain 10/20/2020 Subclavian artery stenosis, left 06/26/2020 Overview (06/26/2020): Added automatically from request for surgery [id number] Hx of CABG 02/16/[address] elevation myocardial infarction (S DAVE) 02/16/2019 Postoperative atrial fibrillation 02/16/2019 Coronary artery disease of n ative heart with stable angina pectoris 01/01/2019 Overview (01/01/2019): Added automatically from request for surgery [id number] Ventricular fibrillation Resolved Problems Problem Noted Date Diagnosed Date Resolved Date ST elevation myocardial infa rction involving right coronary artery 02/16/2019 Immunizations Immunization Administration Dates Next Due Influenza, Quadrivalent, Hig [...] Comments Blood Pressure 135/74 03/01/2024 8:58 AM TABLE SETTER Pulse 77 01/16/2024 10:28 AM CDT Temperature 37.3 C (99.2 F) 02/22/2023 8:15 AM TABLE SETTER Respiratory Rate 18 02/22/2023 8:15 AM TABLE SETTER Oxygen Saturation 94% 01/16/2024 10:28 AM CDT Inhaled Oxygen Concentration - - Weight 104.8 kg (231 lb) 01/16/2024 10:28 AM CDT Height 180.3 cm (5' 11 ) 01/16/2024 10:28 AM CDT Body Mass Index 32.22 01/16/2024 10:28 AM CDT Plan of Treatment Not on file Medical Devices Implanted Type Area Patient Services Representative Device Identifier Shelf Expiration Date Model / Serial / Lot Von Reese, Level One Thoracic, Sterile Plate, Sternal, Lss, Str Implanted:Qty: 1 on 01/01/2019 by Arash Worrell MD at [facility] Plate N/A: Sternum Jan 06/17/2023 24-039-3 0-72 / / [id number] Jan 24-023-17 Drill-Free Maxdrive Threadlock Ts 2.3mm 17mm Self Retaining - [id number] Implanted:Qty: 11 on 01/01/2019 by Arash Worrell MD at [facility] N/A: Sternum Jan 24-023-1 7 / / Medtronic Inc Visi-Pro 7mm 27mm 135cm Radiopaque Balloon Expand Radial Strength - [id number] Implanted:Qty: 1 on 06/30/2020 by Dennis Hill MD at [facility] [employer] JUD36-57 -27-135 / / Aesculap Inc Yasargil 10.3mm Permanent Mri Safe Nonferromagnetic Spring Latex Free [id number] - S17vnj - [id number] Implanted:Qty: 1 on 04/11/2022 by Jazz Wilkes MD at [facility] [employer] Inc [id number] 10/11/2031 FE7 84K / [id number] / Healthy [employer] Inc Vascade Mvp 6-12fr Venous Closure 499-130a-39x - [id number] Implanted:Qty: 1 on 02/21/2023 by Dennis Hill MD at [facility] Medical Inc 10/25/2024 800-612C -10U / / [id number] Damian V[employer] Device Clsr Perclose Prostyle Sut-Mediatd Closure-Repair Sys 01927-50 - [id number] Implanted:Qty: 1 on 02/21/2023 by Dennis Hill MD at [facility] [employer] 11/11/2024 [id number] / / [id number] [employer] Percutaneous Transcatheter Amplatzer Amulet 25mm 2-Cai1-879-025 - [id number] Implanted:Qty: 1 on 02/21/2023 by Dennis Hill MD at [facility] Left: Atrial Appendage [employer] 04/13/2027 9-ACP2-0 10 / / [id number] Explanted Type Area Patient Services Representative Device Identifier Shelf Expiration Date Model / Serial / Lot Medtronic Card Vas Surgery [id number] [place] 1.5mm 14mm Radiopaque Bulb Tapered Tip Soft - [id number] Explanted:Qty: 1 on 01/01/2019 at [facility] [employer] 09/11/2021 311 50 / / Medtronic VersionEye [facility] [address] [place] 2mm 14mm Radiopaque Bulb Tapered Tip Soft Intracoronary - [id number] Explanted:Qty: 1 on 01/01/2019 at [facility] [employer] 09/11/2021 312 00 / / Aesculap Inc Yasargil 5mm Straight Permanent Cerebral Mini 4mm Opening Clip Latex Free Mw003g - S17lbp - [id number] Explanted:Qty: 1 on 04/11/2022 by Jazz Wilkes MD at [facility] [employer] Smart Panel [id number] 04/23/2031 [id number] / 17LBP / Aescul[employer] Inc Yasargil 10.3mm Permanent Mri Safe Nonferromagnetic Spring Latex Free Te882v - S17aic - [id number] Explanted:Qty: 1 on 04/11/2022 by Jazz Wilkes MD at [facility] [employer] Smart Panel [id number] 02/07/2031 [id number] / 17AIC / Insurance [facility] HMO REF [facility] MEDICARE Address: [facility] [address] [place] [address] UHC MEDICARE ADVANTAGE [facility] MEDICARE Address: [address] [address] [place] [address] [facility] MEDICARE [facility] MEDICARE ADVANTAGE [facility] MEDIC[facility] Address: [facility] [address] [place] [address] Advance Directives For more information, please contact: [phone] * Full Code (Latest Code Status on File) Date Activated Date Inactivated Comments 04/11/2022 7:20 PM 04/13/2022 7:25 PM * Full Code Date Activated Date Inactivated Comments 04/05/2022 9:54 PM 04/11/2022 7:20 PM * Full Code Date Activated Date Inactivated Comments 01/01/2019 7:39 PM 01/14/2019 7:57 PM Care Teams Medical Csr Relationship Specialty Start Date End Date Thomas Garza MD PCP - General 01/01/19
--- OUTSIDE RECORDS SUMMARY | 2024-08-04 07:43 | XMS_ITS | Clinical Summary ---
Author Organization [facility] Address [address] [place] [address] Care Team Providers Care Nursing Program Manager Name Role Phone Thomas Garza MD Primary Care Provider + [phone] Allergies No known active allergies Medications albuterol [...] 40 mg tabletIndication s:Coronary artery disease involving [place] coronary artery of [place] heart without angina pectoris Take 1 tablet [...] (04/09/2022): Added automatically from request for surgery [id number] Morbid (severe) obesity due to excess calories 1 Chronic anticoagulation 07/11/2021 Chronic diastolic heart failure 07/11/2021 Atrial fibrillation 12/14/2020 Low back pain 10/20/2020 Subclavian artery stenosis, left 06/26/2020 Overview (06/26/2020): Added automatically from request for surgery [id number] Hx of CABG 02/16/[address] elevation myocardial infarction (S DAVE) 02/16/2019 Postoperative atrial fibrillation 02/16/2019 Coronary artery disease of n ative heart with stable angina pectoris 01/01/2019 Overview (01/01/2019): Added automatically from request for surgery [id number] Ventricular fibrillation Resolved Problems Problem Noted Date Diagnosed Date Resolved Date ST elevation myocardial infa rction involving right coronary artery 02/16/2019 Encounters Date Type Department Care Team Description 07/01/2024 Documentation [facility] Cardiology [address] [place] [address] Kelle Mock MA from Last 3 Months Immunizations Immunization Administration Dates Next Due Influenza, [...] myocardial infa rction involving right coronary artery (HCC) 2019 Sleep apnea CPAP with 4 L O2 Coronary artery disease COPD (chronic obstructive pu lmonary disease) (HCC) Atrial fibrillation (HCC) Chest pain Syncope 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 Patient does not drink 3 Frequency of Binge Drinking Not on file [...] Comments Blood Pressure 135/74 03/01/2024 8:58 AM ZINC PLATER Pulse 77 01/16/2024 10:28 AM CDT Temperature 37.3 C (99.2 F) 02/22/2023 8:15 AM ZINC PLATER Respiratory Rate 18 02/22/2023 8:15 AM ZINC PLATER Oxygen Saturation 94% 01/16/2024 10:28 AM CDT Inhaled Oxygen Concentration - - Weight 104.8 kg (231 lb) 01/16/2024 10:28 AM CDT Height 180.3 cm (5' 11 ) 01/16/2024 10:28 AM CDT Body Mass Index 32.22 01/16/2024 10:28 AM CDT Plan of Treatment Health Maintenance Due Date Last Done Comments Colon Cancer Screening-Colonoscopy 1950 Hepatitis C Screening 1950 DTaP/Tdap/Td Vaccine (1 - Tdap) 01/19/1963 Hepatitis B Screening 01/19/1970 Pneumococcal vaccine 65+ (1 of 2 - PCV) 01/19/1971 Zoster Vaccine (1 of 2) 01/19/2002 Abdominal Aortic Aneurysm (A AA) Screen 01/19/2017 Well Visit 65+ 01/19/2017 Depression Screening 04/04/2023 04/04/2022, 04/04/20 22 Fall Risk Assessment 02/23/2024 02/22/2023 Influenza Vaccine (Season Ended) 2024 04/08/2022, 02/08/2020, 01/14/2019, Additional history exists Medical Devices Implanted Type Area Commercial Airline Pilot Device Identifier Shelf Expiration Date Model / Serial / Lot Von Reese, Level One Thoracic, Sterile Plate, Sternal, Lss, Str Implanted:Qty: 1 on 01/01/2019 by Arash Worrell MD at [facility] Plate N/A: Sternum [facility] 06/17/2023 24-039-3 0-72 / / [id number] [facility] -023-17 Drill-Free Maxdrive Threadlock Ts 2.3mm 17mm Self Retaining - [id number] Implanted:Qty: 11 on 01/01/2019 by Arash Worrell MD at [facility] N/A: Sternum [facility] 24-023-1 7 / / Medtronic Inc Visi-Pro 7mm 27mm 135cm Radiopaque Balloon Expand Radial Strength - [id number] Implanted:Qty: 1 on 06/30/2020 by Dennis Hill MD at [facility] Medtronic Inc [id number] -27-135 / / [employer]es[employer] Yasargil 10.3mm Permanent Mri Safe Nonferromagnetic Spring Latex Free Db903u - S17vnj - [id number] Implanted:Qty: 1 on 04/11/2022 by Jazz Wilkes MD at [facility] [employer] Inc [id number] 10/11/2031 FE7 84K / 17VNJ / Cardiva Medical Inc Vascade Mvp 6-12fr Venous Closure 631-087y-82s - [id number] Implanted:Qty: 1 on 02/21/2023 by Dennis Hill MD at [facility] [employer] Medical Inc 10/25/2024 800-612C -10U / / [id number] [employer] Device Clsr Perclose Prostyle Sut-Mediatd Closure-Repair Sys 01252-45 - [id number] Implanted:Qty: 1 on 02/21/2023 by Dennis Hill MD at [facility] [employer] 11/11/2024 36451-13 / / [id number] [employer] Percutaneous Transcatheter Amplatzer Amulet 25mm 1-Cds3-554-025 - [id number] Implanted:Qty: 1 on 02/21/2023 by Dennis Hill MD at [facility] Left: Atrial Appendage [employer] 04/13/2027 9-ACP2-0 -025 / / [id number] Explanted Type Area Commercial Airline Pilot Device Identifier Shelf Expiration Date Model / Serial / Lot Medtronic Card Vas Surgery [id number] [place] 1.5mm 14mm Radiopaque Bulb Tapered Tip Soft - [id number] Explanted:Qty: 1 on 01/01/2019 at [facility] Medtronic Inc 09/11/2021 311 50 / / Medtronic Card Vas Surgery 62402 [place] 2mm 14mm Radiopaque Bulb Tapered Tip Soft Intracoronary - [id number] Explanted:Qty: 1 on 01/01/2019 at [facility] Med[employer]onic Inc 09/11/2021 312 00 / / [employer] Yasargil 5mm Straight Permanent Cerebral Mini 4mm Opening Clip Latex Free To939r - S17lbp - [id number] Explanted:Qty: 1 on 04/11/2022 by Jazz Wilkes MD at [facility] [employer] Inc [id number] 04/23/2031 [id number] / 17LBP / [employer] Yasargil 10.3mm Permanent Mri Safe Nonferromagnetic Spring Latex Free Ol061y - S17aic - [id number] Explanted:Qty: 1 on 04/11/2022 by Jazz Wilkes MD at [facility] [employer] [id number] 02/07/2031 [id number] / 17AIC / Insurance [facility] MDCR HMO REF [facility] MEDICARE [facility] MEDICARE ADVANTAGE Advance Directives For more information, please contact: [phone] * Full Code (Latest Code Status on File) Date Activated Date Inactivated Comments 04/11/2022 7:20 PM 04/13/2022 7:25 PM * Full Code Date Activated Date Inactivated Comments 04/05/2022 9:54 PM 04/11/2022 7:20 PM * Full Code Date Activated Date Inactivated Comments 01/01/2019 7:39 PM 01/14/2019 7:57 PM Care Teams Nursing Program Manager Relationship Specialty Start Date End Date Thomas Garza MD PCP - General 01/01/19
[2024-08-04 08:07] LABS: Basophils Absolute Auto 0.1 K/mm3 (0.0-0.1); Basophils Percent Auto 0.9 % (0.2-1.2); Eosinophils Absolute Auto 0.4 K/mm3 (0-0.3); Eosinophils Percent Auto 4.8 % (0-4.4); Hematocrit 36.1 % (42.0-52.0); Immature Granulocyte Absolute 0.02 K/mm3 (0.00-0.031); Immature Granulocyte Percent A 0.3 % (0-0.5); Lymphocytes Absolute Auto 0.54 K/mm3 (0.9-3.2); Mean Corpuscular HGB Conc 30.5 g/dl (32-36); Mean Corpuscular Hemoglobin 26.3 pg (26-34); Mean Corpuscular Volume 86.2 fl (80-100); Mean Platelet Volume 9.9 fl (7.4-10.4); Monocytes Absolute Auto 0.6 K/mm3 (0.1-0.6); Monocytes Percent Auto 7.9 % (2.6-8.5); Neutrophils Absolute Auto 6.2 K/mm3 (1.3-6.7); Neutrophils Percent Auto 79.1 % (45.5-73.1); Platelet Count Result 378 k/mm3 (150-375); Red Blood Count 4.19 M/mm3 (4.6-6.20); White Blood Count 7.8 K/mm3 (4.5-10.0)
[2024-08-04 08:16] LABS: Alanine Aminotransferase 12 U/L (6-50); Albumin Level 3.9 g/dL (3.5-5.1); Alkaline Phosphatase 114 U/L (38-126); Anion Gap 8 mmol/L (4-12); Aspartate Amino Transferase 17 U/L (17-59); Bilirubin,Total 0.9 mg/dL (0.2-1.3); Blood Urea Nitrogen 15 mg/dL (9-20); Calcium 8.5 mg/dL (8.4-10.2); Carbon Dioxide 30 mmol/L (22-30); Chloride 99 mmol/L (98-107); Cholesterol 92 mg/dL (0-200); Estimated Glomerular Filt Rate > 60; Glucose 186 mg/dL (65-110); HDL Direct 29 mg/dL; Potassium 4.6 mmol/L (3.4-5.0); Sodium 137 mmol/L (137-145); Triglycerides 76 mg/dL (<150)
[2024-08-04 08:27] LABS: LDL Cholesterol Direct 35 mg/dL
[2024-08-04 10:03] LABS: Creatinine Urine 58.1 mg/dL
[2024-08-04 10:04] LABS: MALB Creatinine Ratio 118.8 mg/g (0-30)
[2024-08-04 19:56] LABS: Hemoglobin A1C 9.6 % (<5.7)
== END 2024-08-04 07:39 | disposition home or self-care (01) ==
LOC: ANHLAB 07:40
PROVIDERS: PCP Family Medicine; Visit Provider Physician Assistant Medical
DX: E78.5 Hyperlipidemia, unspecified (principal); E03.9 Hypothyroidism, unspecified; E11.9 Type 2 diabetes mellitus without complications; E87.6 Hypokalemia; J43.9 Emphysema, unspecified; G25.81 Restless legs syndrome; I48.91 Unspecified atrial fibrillation
CPT/HCPCS: 36415; 80053; 80061; 82043; 83036; 84443; 85025

== ENCOUNTER 2024-08-26 01:47 | Day surgery (SDC) | payer MEDICARE, SELFPAY ==
[2024-08-25 13:12] VITALS: BMI 33.1
--- OUTSIDE RECORDS SUMMARY | 2024-08-26 01:50 | XMS_ITS | Clinical Summary ---
Author Organization [facility] Address [address] [place] [address] Care Team Providers Care Concierge Name Role Phone Thomas Garza MD Primary Care Provider + [phone] Allergies No known active allergies Medications albuterol HFA (PROVENTIL HFA,VENTOLIN HFA,PROAIR HFA) 90 mcg/actuation inhaler Inhale 2 puffs every 6 (six) hours as needed 07/03/19 22 Active budesonide (PULMICORT) 0.5 mg/2 mL nebulizer solution USE 1 VIAL (0.5MG) IN NEBULIZER EVERY 12 HOURS (RINSE AND SPIT AFTER USE) 12/28/19 22 Active ipratropium-albut Josh (DUO-NEB) 0.5-2.5 mg/3 mL nebulizer solutionIndicatio ns:Chronic Obstructive Pulmonary Disease with Bronchospasms Take 3 mL by nebulization every 6 (six) hours 180 mL 04/13/20 22 Active rOPINIRole (REQUIP) 2 mg tablet Take 1 tablet (2 mg total) by mouth 3 (three) times a day 02/12/20 23 Active aspirin 81 mg chewable tabletIndications :coronary artery disease Take 1 tablet (81 mg total) by mouth daily 30 tablet 11 02/24/20 23 Active baclofen (LIORESAL) 10 mg tablet TAKE 1 TABLET BY MOUTH TWICE DAILY NEEDED FOR MUSCLE SPASM USE WITH CAUTION DUE TO DROWSINESS 01/02/20 24 Active atorvastatin (LIPITOR) 40 mg tabletIndications :Coronary artery disease involving [place] coronary artery of [place] heart without angina pectoris Take 1 tablet by mouth nightly 90 tablet 3 01/27/20 24 Active empagliflozin (Jardiance) 10 mg tablet Take 1 tablet (10 mg total) by mouth daily 90 tablet 1 01/27/20 24 Active Additional Information Patient not taking.Reported on 08/04/2024 dilTIAZem XR (DILT-XR) 180 mg 24 hr capsule Take 1 capsule by mouth once daily 90 capsule 2 04/28/19 25 Active metoprolol (LOPRESSOR) 100 mg tabletIndications :Persistent atrial fibrillation (HCC) Take 1 tablet by mouth twice daily 180 tablet 06/29/19 25 Active furosemide (LASIX) 40 mg tablet Take 1 tablet by mouth twice daily 180 tablet 07/17/19 25 Active clopidogreL (PLAVIX) 75 mg tablet Take 1 tablet by mouth once daily 90 tablet 07/17/19 25 Active Additional Information Patient not taking.Reported on 08/04/2024 Active Problems Problem Noted Date Diagnosed Date Presence of Amulet left atrial appendage closure device 03/28/2023 A-fib 02/21/2023 Other thrombophilia 01/21/2023 Acute ischemic stroke 04/05/2022 Carotid stenosis, left 04/04/2022 Overview (04/09/2022): Added automatically from request for surgery [id number] Morbid (severe) obesity due to excess calories 1 Chronic anticoagulation 07/11/2021 Chronic diastolic heart failure 07/11/2021 Atrial fibrillation 12/14/2020 Low back pain 10/20/2020 Subclavian artery stenosis, left 06/26/2020 Overview (06/26/2020): Added automatically from request for surgery [id number] Hx of CABG 02/16/[address] elevation myocardial infarction (S DAVE) 02/16/2019 Postoperative atrial fibrillation 02/16/2019 Coronary artery disease of n ative heart with stable angina pectoris 01/01/2019 Overview (01/01/2019): Added automatically from request for surgery [id number] Ventricular fibrillation Resolved Problems Problem Noted Date Diagnosed Date Resolved Date ST elevation myocardial infa rction involving right coronary artery 02/16/2019 Encounters Date Type Department Care Team Description 08/23/2024 Telephone [facility] Cardiology [address] [place] [address] [place] [phone] Dennis Hill MD 08/04/2024 9:00 AM CDT Office Visit [facility] Cardiology [address] [place] [address] [place] [phone] Dennis Hill MD Coronary artery disease involving [place] coronary artery of [place] heart without angina pectoris (Primary Dx); S/P CABG x 3; Persistent atrial fibrillation (HCC); Presence of Amulet left atrial appendage closure device; History of fall; History of CVA (cerebrovascular accident); History of left-sided carotid endarterectomy; Mild aortic stenosis 08/04/2024 Telephone [place] [address] [place] [phone] Dennis Hill MD 07/01/2024 Documentation [place] [address] [place] [phone] Kelle Mock MA from Last 3 [...] Sign Reading Time Taken Comments Blood Pressure 118/58 08/04/2024 8:53 AM CDT Pulse 70 08/04/2024 8:53 AM CDT Temperature 37.3 C (99.2 F) 02/22/2023 8:15 AM POLE FRAME CONSTRUCTION 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 Respiratory Rate 18 02/22/2023 8:15 AM POLE FRAME CONSTRUCTION WORKER Oxygen Saturation 95% 08/04/2024 8:53 AM CDT Inhaled Oxygen Concentration - - Weight 108 kg (238 lb) 08/04/2024 8:53 AM CDT Height 180.3 cm (5' 11 ) 08/04/2024 8:53 AM CDT Body Mass Index 33.19 08/04/2024 8:53 AM CDT Plan of Treatment Health Maintenance Due Date Last Done Comments Colon Cancer Screening-Colonoscopy 1950 Hepatitis C Screening 1950 DTaP/Tdap/Td Vaccine (1 - Tdap) 01/19/1963 Hepatitis B Screening 01/19/1970 Pneumococcal vaccine 65+ (1 of 2 - PCV) 01/19/1971 Zoster Vaccine (1 of 2) 01/19/2002 Abdominal Aortic Aneurysm (A AA) Screen 01/19/2017 Well Visit 65+ 01/19/2017 Depression Screening 04/04/2023 04/04/2022, 04/04/20 Fall Risk Assessment 02/23/2024 02/22/2023 Influenza Vaccine (Season Ended) 2024 04/08/2022, 02/08/2020, 01/14/2019, Additional history exists Medical Devices Implanted Type Area Patient Access Director Device Identifier Shelf Expiration Date Model / Serial / Lot Von Reese, Level One Thoracic, Sterile Plate, Sternal, Lss, Str Implanted:Qty: 1 on 01/01/2019 by Arash Worrell MD at [facility] Plate N/A: Sternum Jan 06/17/2023 24-039-3 0-72 / / [id number] 24-023-17 Drill-Free Maxdrive Threadlock Ts 2.3mm 17mm Self Retaining - [id number] Implanted:Qty: 11 on 01/01/2019 by Arash Worrell MD at [facility] N/A: Sternum Jan 24-023-1 7 / / Medtronic Inc Visi-Pro 7mm 27mm 135cm Radiopaque Balloon Expand Radial Strength - [id number] Implanted:Qty: 1 on 06/30/2020 by Dennis Hill MD at [facility] Medtronic Inc PUB79-15 -27-135 / / [employer]es[employer] Inc Yasargil 10.3mm Permanent Mri Safe Nonferromagnetic Spring Latex Free Hj464o - S17vnj - [id number] Implanted:Qty: 1 on 04/11/2022 by Jazz Wilkes MD at [facility] [employer] [id number] 10/11/2031 FE7 84K / 17VNJ / Cardiva Medical Inc Vascade Mvp 6-12fr Venous Closure 055-562r-70w - [id number] Implanted:Qty: 1 on 02/21/2023 by Dennis Hill MD at [facility] [employer] 10/25/2024 800-612C -10U / / [id number] [employer] Device Clsr Perclose Prostyle Sut-Mediatd Closure-Repair Sys 06018-70 - [id number] Implanted:Qty: 1 on 02/21/2023 by Dennis Hill MD at [facility] [employer] 11/11/2024 95207-25 / / [id number] [employer] Percutaneous Transcatheter Amplatzer Amulet 25mm 5-Ngp6-070-025 - [id number] Implanted:Qty: 1 on 02/21/2023 by Dennis Hill MD at [facility] Left: Atrial Appendage [employer] 04/13/2027 9-ACP2-0 10 / / [id number] Explanted Type Area Patient Access Director Device Identifier Shelf Expiration Date Model / Serial / Lot Medtronic Card Vasc Surgery 52489 [place] 1.5mm 14mm Radiopaque Bulb Tapered Tip Soft - [id number] Explanted:Qty: 1 on 01/01/2019 at [facility] [employer] 09/11/2021 311 50 / / Medtronic Card Vasc Surgery 54632 [place] 2mm 14mm Radiopaque Bulb Tapered Tip Soft Intracoronary - [id number] Explanted:Qty: 1 on 01/01/2019 at [facility] [employer] 09/11/2021 312 00 / / Aes[employer] Inc Yasargil 5mm Straight Permanent Cerebral Mini 4mm Opening Clip Latex Free Oh634u - S17lbp - [id number] Explanted:Qty: 1 on 04/11/2022 by Jazz Wilkes MD at [facility] [employer] [id number] 04/23/2031 [id number] / 17LBP / [employer] Yasargil 10.3mm Permanent Mri Safe Nonferromagnetic Spring Latex Free Lk574l - S17aic - [id number] Explanted:Qty: 1 on 04/11/2022 by Jazz Wilkes MD at [facility] [employer] [id number] 02/07/2031 [id number] / 17AIC / Procedures Procedure Name Priority Date/Time Associated Diagnosis Comments POCT LIPID PANEL Routine 08/04/2024 8:47 AM CDT Coronary artery disease involving [place] coronary artery of [place] heart without angina pectoris from Last 3 Months Results * POCT lipid panel (08/04/2024 8:47 AM CDT) Cholesterol, POC <100 mg/dL HDL, POC 25 mg/dL Triglycerides, POC 78 mg/dL LDL Cholesterol POC 58.4 mg/dL Chol/HDL Ratio, POC n/a Non-HDL Cholesterol, POC n/a mg/dL Cholesterol Total, POC <100 mg/dL Capillary blood 08/04/2024 8 :47 AM CDT Dennis Hill MD POINT OF CARE TEST ORDERABLES Fi nal Result from Last 3 Months Insurance [facility] MDCR HMO REF [facility] MEDIC[facility] Address: [address] [address] [facility] Address: [address] [address] [place] [address] [facility] MED[facility] Address: [facility] [address] [place] [address] UHC MEDICARE ADVANTAGE [facility] Address: [address] [address] [place] [address] Advance Directives For more information, please contact: [phone] * Full Code (Latest Code Status on File) Date Activated Date Inactivated Comments 04/11/2022 7:20 PM 04/13/2022 7:25 PM * Full Code Date Activated Date Inactivated Comments 04/05/2022 9:54 PM 04/11/2022 7:20 PM * Full Code Date Activated Date Inactivated Comments 01/01/2019 7:39 PM 01/14/2019 7:57 PM Care Teams Concierge Relationship Specialty Start Date End Date Thomas Garza MD PCP - General 01/01/19
--- OUTSIDE RECORDS SUMMARY | 2024-08-26 01:50 | XMS_ITS | Referral Summary ---
Author Organization [facility] Address [address] [place] [address] Care Team Providers Care Hebrew Cantor Name Role Phone Thomas Garza MD Primary Care Provider Encounters Date Type Department Care Team Description 08/23/2024 Telephone [facility] Cardiology [address] [place] [address] [place] [phone] Dennis Hill MD 08/04/2024 Telephone [facility] Cardiology [address] [place] [address] [address] [place] [phone] Dennis Hill MD 08/04/2024 9:00 AM CDT Office Visit [facility] Cardiology [address] [place] [address] [place] [phone] Dennis Hill MD Coronary artery disease involving [place] coronary artery of [place] heart without angina pectoris (Primary Dx); S/P CABG x 3; Persistent atrial fibrillation (HCC); Presence of Amulet left atrial appendage closure device; History of fall; History of CVA (cerebrovascular accident); History of left-sided carotid endarterectomy; Mild aortic stenosis 07/01/2024 Documentation [facility] Cardiology [address] [place] [address] [place] [phone] Kelle Mock MA from Last 3 Months [...] 40 mg tabletIndications :Coronary artery disease involving [place] coronary artery of [place] heart without angina pectoris Take 1 tablet [...] (04/09/2022): Added automatically from request for surgery [id number] Morbid (severe) obesity due to excess calories 1 Chronic anticoagulation 07/11/2021 Chronic diastolic heart failure 07/11/2021 Atrial fibrillation 12/14/2020 Low back pain 10/20/2020 Subclavian artery stenosis, left 06/26/2020 Overview (06/26/2020): Added automatically from request for surgery [id number] Hx of CABG 02/16/[address] elevation myocardial infarction (S DAVE) 02/16/2019 Postoperative atrial fibrillation 02/16/2019 Coronary artery disease of n ative heart with stable angina pectoris 01/01/2019 Overview (01/01/2019): Added automatically from request for surgery [id number] Ventricular fibrillation Resolved Problems Problem Noted Date [...] 37.3 C (99.2 F) 02/22/2023 8:15 AM WEB 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 Respiratory Rate 18 02/22/2023 8:15 AM WEB DEVELOPMENT CONSULTANT Oxygen Saturation 95% 08/04/2024 8:53 AM CDT Inhaled Oxygen Concentration - - Weight 108 kg (238 lb) 08/04/2024 8:53 AM CDT Height 180.3 cm (5' 11 ) 08/04/2024 8:53 AM CDT Body Mass Index 33.19 08/04/2024 8:53 AM CDT Plan of Treatment Not on file Medical Devices Implanted Type Area Electrical Mechanic Device Identifier Shelf Expiration Date Model / Serial / Lot Von Reese, Level One Thoracic, Sterile Plate, Sternal, Lss, Str Implanted:Qty: 1 on 01/01/2019 by Arash Worrell MD at [facility] Plate N/A: Sternum Jan 06/17/2023 24-039-3 0-72 / / [id number] -17 Drill-Free Maxdrive Threadlock Ts 2.3mm 17mm Self Retaining - [id number] Implanted:Qty: 11 on 01/01/2019 by Arash Worrell MD at [facility] N/A: Sternum [employer]ugh 24-023-1 7 / / Medtronic Inc Visi-Pro 7mm 27mm 135cm Radiopaque Balloon Expand Radial Strength - [id number] Implanted:Qty: 1 on 06/30/2020 by Dennis Hill MD at [facility] Medtronic Inc DUL65-13 -27-135 / / [employer] Yasargil 10.3mm Permanent Mri Safe Nonferromagnetic Spring Latex Free Xp653b - S17vnj - [id number] Implanted:Qty: 1 on 04/11/2022 by Jazz Wilkes MD at [facility] [employer] [id number] 10/11/2031 FE7 84K / 17VNJ / Cardiva Medical Inc Vascade Mvp 6-12fr Venous Closure 948-717u-33r - [id number] Implanted:Qty: 1 on 02/21/2023 by Dennis Hill MD at [facility] [employer] 10/25/2024 800-612C -10U / / [id number] [employer] Device Clsr Perclose Prostyle Sut-Mediatd Closure-Repair Sys 91976-85 - [id number] Implanted:Qty: 1 on 02/21/2023 by Dennis Hill MD at [facility] 11/11/2024 75836-02 / / [id number] [employer] Percutaneous Transcatheter Amplatzer Amulet 25mm 4-Wax4-554-025 - [id number] Implanted:Qty: 1 on 02/21/2023 by Dennis Hill MD at [facility] Left: Atrial Appendage [employer] 04/13/2027 9-ACP2-0 10-025 / / [id number] Explanted Type Area Electrical Mechanic Device Identifier Shelf Expiration Date Model / Serial / Lot Medtronic Card Vasc Surgery [id number] [place] 1.5mm 14mm Radiopaque Bulb Tapered Tip Soft - [id number] Explanted:Qty: 1 on 01/01/2019 at [facility] [employer]onic Inc 09/11/2021 311 50 / / Medtronic Card Vasc Surgery 95961 [place] 2mm 14mm Radiopaque Bulb Tapered Tip Soft Intracoronary - [id number] Explanted:Qty: 1 on 01/01/2019 at [facility] [employer] 09/11/2021 312 00 / / [employer]es[employer] Inc Yasargil 5mm Straight Permanent Cerebral Mini 4mm Opening Clip Latex Free Oe536n - S17lbp - [id number] Explanted:Qty: 1 on 04/11/2022 by Jazz Wilkes MD at [facility] [employer] [id number] 04/23/2031 [id number] / 17LBP / Aes[employer] Yasargil 10.3mm Permanent Mri Safe Nonferromagnetic Spring Latex Free Ot033c - S17aic - [id number] Explanted:Qty: 1 on 04/11/2022 by Jazz Wilkes MD at [facility] [employer] [id number] 02/07/2031 [id number] / 17AIC / Procedures Procedure Name Priority Date/Time Associated Diagnosis Comments POCT LIPID PANEL Routine 08/04/2024 8:47 AM CDT Coronary artery disease involving [place] coronary artery of [place] heart without angina pectoris from Last 3 [...] nal Result from Last 3 Months Insurance [facility] MDCR HMO REF [facility] MEDICARE Address: [facility] [address] [place] [address] [facility] Address: [address] [address] [place] [address] [facility] MEDICARE [facility] MEDICARE ADVANTAGE [facility]IC[facility] Address: [address] [address] [place] [address] Advance Directives For more information, please contact: [phone] * Full Code (Latest Code Status on File) Date Activated Date Inactivated Comments 04/11/2022 7:20 PM 04/13/2022 7:25 PM * Full Code Date Activated Date Inactivated Comments 04/05/2022 9:54 PM 04/11/2022 7:20 PM * Full Code Date Activated Date Inactivated Comments 01/01/2019 7:39 PM 01/14/2019 7:57 PM Care Teams Hebrew Cantor Relationship Specialty Start Date End Date Thomas Garza MD PCP - General 01/01/19
--- OUTSIDE RECORDS SUMMARY | 2024-08-26 01:50 | XMS_ITS | CONTINUITY OF CARE DOCUMENT ---
Author Name mor joibony Address Unknown Organization [facility] Address [address] [facility] [address] [place] [address] Phone [phone] Care Team Providers Care Food Preparation Supervisor Name Role Phone Ravindra OTTO, Salvatore Unavailable [phone] ANNAMARIE OTTO, ANTONIO F Unavailable INSURANCE PROVIDERS Payer name Policy type / Coverage type [place] red libertarian ID [facility] [id number]
[2024-08-26 07:22] VITALS: BP 111/64; PULSE 66; RESP 22; TEMP 36.5; O2SAT 97; BMI 33.1
--- NOTE | 2024-08-26 08:22 | WPDHPUPDATE1 ---
History and Physical Update Update Date/Time: 08/26/24 08:22 History and Physical has been reviewed, including an updated exam of the patient. There are NO changes in the patient's condition. Risks, benefits, and alternatives have been discussed and questions answered. Patient agrees to proceed with procedure.
--- NOTE | 2024-08-26 08:30 | ECHO_ITS ---
Patient Info Name: Zack Dai Age: 74 years : 1950 Gender: Male Exam Date: 08/26/2024 8:28 AM Patient Status: unknown Admit Date: 08/26/2024 Exam Type: CA echo transesophageal Staff Attending Provider: Jae Fitzpatrick Summary 1. There is a well positioned Amulet device covering the ostium of the left atrial appendage. There is no lilo-device leak or thrombus on the device. 2. Limited views were performed as there was some difficulty flexing and retroflex in probe. Once probe was removed from the body, it was inspected and there was still some difficulty flexing and retroflex and the probe. Medications See medication record for details. The posterior pharynx was sprayed with Cetacaine spray. Procedure Details The patient arrived in a fasting state after obtaining informed consent. The transesophageal probe was passed into the posterior pharynx, mid-esophagus, distal esophagus, and gastric fundus. Imaging was performed at multiple levels. The patient tolerated the procedure well and there were no complications. The patient was transferred out of the examination area in satisfactory condition. Monitored anesthesia care provided by anesthesiology team. Left Ventricle The left ventricular systolic function is normal. Right Ventricle The right ventricular systolic function is normal. Atrial Appendage There is a well positioned Amulet device covering the ostium of the left atrial appendage. There is no lilo-device leak or thrombus on the device. Aortic Valve The aortic valve opens well. Mitral Valve The mitral valve is opening well. There is posterior annular calcification. There is mild mitral regurgitation. Report Signatures
--- NOTE | 2024-08-26 08:45 | P.PNAN_ITS ---
Anes - Initial Pre Proc Eval Procedure: Operation Date: 08/26/24 08:30 Proposed Procedures p Trans Esophageal Echo - Jae Fitzpatrick MD Date/Time: 08/26/24 08:45 Surgeon: Jae Fitzpatrick MD Pre Op Diagnosis: LAAO Patient Data Age: 74 Gender: M Height: 1.8 m Weight: 107.7 kg Last Vital Signs Temp 36.5 C 08/26/24 07:22 Pulse 66 08/26/24 07:22 Resp 22 H 08/26/24 07:22 BP 111/64 08/26/24 07:22 Pulse Ox 97 08/26/24 07:22 O2 Del Method Room Air 08/26/24 07:22 Allergies Allergy/AdvReac Type Severity Reaction Status Date / Time No Known Allergies Allergy Verified 08/10/24 08:37 Home Medications Medication Instructions Recorded Confirmed Type furosemide 40 mg tablet 40 mg PO BID #60 tabs 04/26/22 08/25/24 Rx aspirin 81 mg tablet,delayed 81 mg PO DAILY 02/25/23 08/26/24 History release (Adult Aspirin Regimen) metoprolol tartrate 50 mg tablet 100 mg PO Q12HR 11/18/23 08/26/24 History albuterol sulfate 90 mcg/actuation See Rx Instructions .Route 01/27/24 08/26/24 Rx aerosol inhaler .COMPLEX #9 grams ipratropium 0.5 mg-albuterol 3 mg See Rx Instructions .Route 02/23/24 08/26/24 Rx (2.5 mg base)/3 mL nebulization .COMPLEX #180 mL soln budesonide 0.5 mg/2 mL suspension See Rx Instructions .Route 06/15/24 08/26/24 Rx for nebulization .COMPLEX #60 mL ropinirole 2 mg tablet 2 mg PO TID #90 tabs 08/05/24 08/26/24 Rx dapagliflozin propanediol 10 mg 10 mg PO QAM #90 tabs 08/10/24 08/26/24 Rx tablet (Farxiga) atorvastatin 40 mg tablet 40 mg PO QPM 08/25/24 08/26/24 History clopidogrel 75 mg tablet 75 mg PO DAILY 08/25/24 08/26/24 History diltiazem HCl 180 mg 180 mg PO Q24H 08/25/24 08/26/24 History capsule,extended release 24 hr Patient hx anesthesia problems: none Family hx anesthesia problems: none Results Review: All pre-operative results and documents have been reviewed as part of the pre- operative evaluation. [facility], [facility] Past Medical History Medical History Cellulitis and abscess of lower extremity Anemia Acute anemia Hyperglycemia Hallucinations BMI 35.0-35.9,adult Acute renal failure Obesity hypoventilation syndrome Diastolic CHF Seizure Ileus, unspecified Abdominal distension Seizures Cardiac arrest Acute respiratory failure Rhabdomyolysis Nail avulsion of toe TRACY (acute kidney injury) Encounter for immunization (04/03/15) Irritation of eye Asbestosis Lumbar spondylosis with myelopathy Atrial fibrillation with rapid ventricular response Restless leg COPD (chronic obstructive pulmonary disease) with emphysema Irritation of left eye BMI over 35 Chronic hypercapnic respiratory failure Fall down stairs Hyponatremia Elevated troponin Essential hypertension Hypercholesterolemia History of ventricular fibrillation VFib arrest during cardiac catheterization December 2018 and subsequent cardiogenic shock cardiac in her aortic balloon pump emergent echo demonstrating EF of 35% STEMI (ST elevation myocardial infarction) Tobacco use Alcohol abuse Paroxysmal atrial fibrillation Coronary artery disease Followed by Dr. Hill Syncope Chronic obstructive pulmonary disease with (acute) exacerbation Head injury, acute Atrial fibrillation with RVR Acute respiratory failure with hypoxia Surgical History Surgical History History of cardiac catheterization December 2018: High-grade stenosis of left main coronary, moderate to severe diffuse disease of proximal to mid LAD, high-grade eccentric ulcerated plaque in the mid segment of the dominant RCA. During catheterization the patient went into VFib arrest much shock x1 Hx of CABG CABG with [place] to LAD, left radial artery to OM 2, reverse saphenous vein graft 2 p.o. be of RCA performed by Dr. Worrell December 2019 at [facility]. Family History Family History Mother Bone cancer Father Alcoholism Sibling Healthy adult male 62 years old Social History Social History Social History: 48 years. They have 4 children who reportedly healthy. He is a former smoker at least a pack of cigarettes per day for about 42 years. He used to drink alcohol quite heavily and drink at least a 10 pack a day until his heart attack in December of 2018. He denies any illicit substance use. 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 Primary care physician: Dr. Thomas Garza Code status: Full code Surrogate decision maker: Smoking packs per day: 0.5 Smoking cigarettes per day: 10.0 Years smoked: 40 Smoking pack-years: 20.00 Smoking status: Former smoker Tobacco type: cigarettes Second hand tobacco smoke exposure: Yes Additional smoking assessment comments: PT STATES QUITTING 2018 Alcohol intake: former Drinks per week: 0 Alcohol use details: @ LEAST 10/DAY-QUIT 12/2018 Substance use: never Substance use type: does not use Do You Feel Safe in your Home?: Yes Lack of Transportation: No Lack of Food: Never True Current Housing: I Have Housing Concerned About Future Housing: No Difficulty Paying Gas/Electric Bills: No Difficulty Paying for Meds: No Currently Unemployed: No Education: High School Diploma/GED Difficulty w/ Childcare or Family Care: No Living arrangements: with family Occupation/Education: retired Additional occupation/education comments: [employer] Gender identity (if verbalized by the patient): Male Sexual Orientation (if Verbalized by the Patient): Straight or Heterosexual Spiritual care concerns: No Anes - Eval Final PreProcedure Day of Procedure 08/26/24 08:45 Patient weight: obese Heart: irregular rhythm Lungs: wheezes Airway: Mallampati scale class II and other (edentulous) Neurological: alert and oriented Last oral intake: >/= 8 hours ASA classification: IV Emergent: no Anesthetic plan: proceed Anesthesia type and monitoring: general GIVS and standard monitoring Results Review: All pre-operative results and documents have been reviewed as part of the pre- operative evaluation. Patient states using 2L home O2 with exertion and with sleep. States feeling short of breath and uses inhalers several times a day. Hx of a stroke in 2021, some residual right sided weakness. States newly diagnosed diabetic. Informed Consent: The patient's anesthetic plan and its attendant risks and benefits were discussed with the patient/family/POA. Questions were solicited and answers provided to the satisfaction of the patient/family/POA.
[2024-08-26 08:58] VITALS: BP 100/64; PULSE 68; RESP 23; TEMP 36.5; O2SAT 95
[2024-08-26 09:15] VITALS: BP 120/62; PULSE 66; RESP 20; O2SAT 97
[2024-08-26 09:30] VITALS: BP 132/66; PULSE 77; RESP 18; O2SAT 99
[2024-08-26 09:45] VITALS: BP 132/59; PULSE 69; RESP 18; O2SAT 95
[2024-08-26 10:00] VITALS: BP 106/67; PULSE 65; RESP 22; O2SAT 94
== END 2024-08-26 10:38 | disposition home or self-care (01) ==
PROVIDERS: PCP Family Medicine; Visit Provider Internal Medicine
PROC: (CPT 93312; principal; 2024-08-26 08:30)
DX: I25.10 Atherosclerotic heart disease of native coronary artery without angina pectoris (principal); I48.0 Paroxysmal atrial fibrillation; I34.0 Nonrheumatic mitral (valve) insufficiency; J44.9 Chronic obstructive pulmonary disease, unspecified; D64.9 Anemia, unspecified; R73.9 Hyperglycemia, unspecified; N17.9 Acute kidney failure, unspecified; I10 Essential (primary) hypertension; E78.00 Pure hypercholesterolemia, unspecified; E03.9 Hypothyroidism, unspecified; I73.9 Peripheral vascular disease, unspecified; I35.0 Nonrheumatic aortic (valve) stenosis; G25.81 Restless legs syndrome; E87.1 Hypo-osmolality and hyponatremia; G47.30 Sleep apnea, unspecified; I25.2 Old myocardial infarction; R55 Syncope and collapse; R33.9 Retention of urine, unspecified; E66.9 Obesity, unspecified; Z68.33 Body mass index [BMI] 33.0-33.9, adult; Z79.51 Long term (current) use of inhaled steroids; Z79.82 Long term (current) use of aspirin; Z79.02 Long term (current) use of antithrombotics/antiplatelets; Z79.84 Long term (current) use of oral hypoglycemic drugs; Z99.81 Dependence on supplemental oxygen; Z91.81 History of falling; Z98.890 Other specified postprocedural states; Z95.1 Presence of aortocoronary bypass graft; Z95.5 Presence of coronary angioplasty implant and graft; Z95.818 Presence of other cardiac implants and grafts; Z87.891 Personal history of nicotine dependence; Z86.73 Personal history of transient ischemic attack (TIA), and cerebral infarction without residual deficits; Z80.8 Family history of malignant neoplasm of other organs or systems
CPT/HCPCS: 93312; 93320; 93325; J2003; J2704; J7040

== ENCOUNTER 2024-11-08 10:41 | Outpatient (CLI) | payer MEDICARE, SELFPAY ==
--- NOTE | ~2024-11-08 | CT_ITS ---
CT Scan of the Chest without Contrast: Clinical Indication: Lung cancer screening, nicotine dependence Technique: Contiguous sections were acquired throughout the chest without intravenous contrast. Dose reduction technique was used on this scan by utilizing automated exposure control and iterative recon struction technique. The dose-length product (DLP) was 221.70 mGy-cm. COMPARISON: 11/03/2023 Findings: There is no evidence of any significant mediastinal, hilar or axillary lymphadenopathy. There are ext ensive coronary artery calcifications. Probable prior CABG. Small right pleural effusion is decreased from prior exam. No left pleural effusion. No pericardial e ffusion. The lungs are clear. No pulmonary nodules or infiltrates are noted. There is mild to moderate emphyse ma. Images through the upper abdomen reveal no abnormalities. Stable compression deformity of L1. Impression: Lung RADS 2: Benign appearance. [address] advised. Small right pleural effusion, decreased from prior exam. Reviewed, dictated and finalized at [facility]. Impression: Lung RADS 2: Benign appearance. [address] advised. Small right pleural effusion, decreased from prior exam.
--- OUTSIDE RECORDS SUMMARY | 2024-11-08 11:07 | XMS_ITS | Encounter Summary ---
Author Organization [facility] Healthcare Address [address] [place] [address] Care Team Providers Care Engraving Press Operator Name Role Phone Thomas Garza MD Primary Care Provider [phone] Encounter Details Date Type Department Care Team (Late st Contact Info) Description 08/26/[address] [facility] Health Information Management [address] [place] [address] Jae Fitzpatrick MD [address] [place] [address] Social History Tobacco Use Types Packs/Day Years [...] on file documented as of this encounter Plan of Treatment Not on file documented as of this encounter Procedures Procedure Name Priority Date/Time Associated Diagnosis Comments CARDIOLOGY DOCUMENT SCAN 08/26/2024 documented in this encounter Results * Cardiology Document Scan (08/26/2024) Anatomical Region Laterality Modality Other us Jae Fitzpatrick MD CV CARDIAC SERVICES PROCEDURES F inal Result documented in this encounter Visit Diagnoses Not on filedocumented in this encounter Care Teams Engraving Press Operator Relationship Specialty Start Date End Date Thomas Garza MD PCP - General 01/01/19 documented as of this encounter
--- OUTSIDE RECORDS SUMMARY | 2024-11-08 11:07 | XMS_ITS | Clinical Summary ---
Author Organization [facility] Address [address] [place] [address] Care Team Providers Care Silver Brazer Name Role Phone Thomas Garza MD Primary Care Provider [phone] Allergies No known active allergies Medications albuterol [...] 40 mg tabletIndication s:Coronary artery disease involving [place]og[place] coronary artery of [place]og[place] heart without angina pectoris Take 1 tablet by mouth nightly 90 tablet 3 024 Active empagliflozin (Jardiance) 10 mg tablet Take 1 tablet (10 mg total) by mouth daily 90 tablet 1 024 Active Additional Information Patient not taking.Reported on 08/04/2024 dilTIAZem XR (DILT-XR) 180 mg 24 hr capsule Take 1 capsule by mouth once daily 90 capsule 2 025 Active metoprolol (LOPRESSOR) 100 mg tabletIndication s:Persistent atrial fibrillation (HCC) Take 1 tablet by mouth twice daily 180 tablet 2 025 Active furosemide (LASIX) 40 mg tablet Take 1 tablet by mouth twice daily 180 tablet 025 Active clopidogreL (PLAVIX) 75 mg tablet Take 1 tablet by mouth once daily 90 tablet 025 Active furosemide (LASIX) 40 mg tablet Take 1 tablet by mouth twice daily 180 tablet 025 2024 Discontinued clopidogreL (PLAVIX) 75 mg tablet Take 1 tablet by mouth once daily 90 tablet 025 2024 Discontinued Active Problems Problem Noted Date Diagnosed Date Presence of Amulet left atrial appendage closure device 03/28/2023 A-fib 02/21/2023 Other thrombophilia 01/21/2023 Acute ischemic stroke 04/05/2022 Carotid stenosis, left 04/04/2022 Overview (04/09/2022): Added automatically from request for surgery [id number] Morbid (severe) obesity due to excess calories 1 Chronic anticoagulation 07/11/2021 Chronic diastolic heart failure 07/11/2021 Atrial fibrillation 12/14/2020 Low back pain 10/20/2020 Subclavian artery stenosis, left 06/26/2020 Overview (06/26/2020): Added automatically from request for surgery [id number] Hx of CABG 02/16/[address] elevation myocardial infarction (S DAVE) 02/16/2019 Postoperative atrial fibrillation 02/16/2019 Coronary artery disease of n ative heart with stable angina pectoris 01/01/2019 Overview (01/01/2019): Added automatically from request for surgery [id number] Ventricular fibrillation Resolved Problems Problem Noted Date Diagnosed Date Resolved Date ST elevation myocardial infa rction involving right coronary artery 02/16/2019 Encounters Date Type Department Care Team Description 08/26/2024 Orders Only [facility] [place] [address] [place] [address] Jae Fitzpatrick MD 08/23/2024 Telephone [facility] Cardiology [address] [place] [address] Dennis Hill MD from Last 3 Months Immunizations Immunization Administration [...] disease COPD (chronic obstructive pu lmonary disease) ([facility]) Atrial fibrillation (HCC) Chest pain Syncope 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 Dependence on supplemental oxygen 2L , with increase PRN; 4L with CPAP CHF (congestive heart failure) ([facility]) Chronic kidney disease Urinary retention urostomy Peripheral vascular disease left carotid Anemia GI bleeding Hypothyroidism Stroke ([facility]) 03/2022 Restless legs syndrome Dry eye Generalized [...] 37.3 C (99.2 F) 02/22/2023 8:15 AM JUNIOR MECHANICAL ENGINEER Respiratory Rate 18 02/22/2023 8:15 AM JUNIOR MECHANICAL ENGINEER Oxygen Saturation 95% 08/04/2024 8:53 AM CDT Inhaled Oxygen Concentration - - Weight 108 kg (238 lb) 08/04/2024 8:53 AM CDT Height 180.3 cm (5' 11) 08/04/2024 8:53 AM CDT Body Mass Index [...] Fall Risk Assessment 02/23/2024 02/22/2023 Influenza Vaccine (#1) 2024 2, 02/08/2020, 01/14/2019, Additional history exists Medical Devices Implanted Type Area Soccer Player Device Identifier Shelf Expiration Date Model / Serial / Lot Von Re[employer], Level One Thoracic, Sterile Plate, Sternal, Lss, Str Implanted:Qty: 1 on 01/01/2019 by Arash Worrell MD at [facility] Plate N/A: Sternum Jan 06/17/2023 24-039-3 0-72 / / [id number] [facility] Drill-Free Maxdrive Threadlock Ts 2.3mm 17mm Self Retaining - [id number] Implanted:Qty: 11 on 01/01/2019 by Arash Worrell MD at [facility] N/A: [facility] 24-023-1 7 / / Medtronic Inc Visi-Pro 7mm 27mm 135cm Radiopaque Balloon Expand Radial Strength - [id number] Implanted:Qty: 1 on 06/30/2020 by Dennis Hill MD at [facility] [employer]IK[employer] Inc [id number] -27-135 / / [employer]es[employer] Yasargil 10.3mm Permanent Mri Safe Nonferromagnetic Spring Latex Free Tp006r - S17vnj - [id number] Implanted:Qty: 1 on 04/11/2022 by Jazz Wilkes MD at [facility] [employer] Inc [id number] 10/11/2031 FE7 84K / [id number] / [employer] Vascade Mvp 6-12fr Venous Closure [id number] - [id number] Implanted:Qty: 1 on 02/21/2023 by Dennis Hill MD at [facility] [employer] 10/25/2024 800-612C -10U / / [id number] [employer] Device Clsr Perclose Prostyle Sut-Mediatd Closure-Repair Sys 11594-71 - [id number] Implanted:Qty: 1 on 02/21/2023 by Dennis Hill MD at [facility] [employer] 11/11/2024 [id number] / / [id number] [employer] Percutaneous Transcatheter Amplatzer Amulet 25mm 6-Ixc3-252-025 - [id number] Implanted:Qty: 1 on 02/21/2023 by Dennis Hill MD at [facility] Left: Atrial Appendage [employer] 04/13/2027 9-ACP2-0 10 / [id number] Explanted Type Area Soccer Player Device Identifier Shelf Expiration Date Model / Serial / Lot Medtronic Card Vas Surgery [address] [place] 1.5mm 14mm Radiopaque Bulb Tapered Tip Soft - [id number] Explanted:Qty: 1 on 01/01/2019 at [facility] Medtronic Inc 09/11/2021 311 50 / / Medtronic Card Vas Surgery [address] [place] 2mm 14mm Radiopaque Bulb Tapered Tip Soft Intracoronary - [id number] Explanted:Qty: 1 on 01/01/2019 at [facility] Med[employer]onic Inc 09/11/2021 312 00 / / [employer] Yasargil 5mm Straight Permanent Cerebral Mini 4mm Opening Clip Latex Free Cx748x - S17lbp - [id number] Explanted:Qty: 1 on 04/11/2022 by Jazz Wilkes MD at [facility] [employer] [id number] 04/23/2031 [id number] / [id number] / [employer]es[employer] Yasargil 10.3mm Permanent Mri Safe Nonferromagnetic Spring Latex Free Sf998a - S17aic - [id number] Explanted:Qty: 1 on 04/11/2022 by Jazz Wilkes MD at [facility] [employer] [id number] 02/07/2031 [id number] / 17AIC / Procedures Procedure Name Priority Date/Time Associated Diagnosis Comments CARDIOLOGY DOCUMENT SCAN 08/26/2024 from Last 3 Months Results * Cardiology Document Scan (08/26/2024) Anatomical Region Laterality Modality Other Jae Fitzpatrick MD CV CARDIAC SERVICES PROCEDURES F inal Result from Last 3 Months Insurance [facility] MDCR HMO REF AETNA MEDICARE [facility] Address: [facility] [id number] [place] [address] [facility] MEDICARE ADVANTAGE Advance Directives For more information, please contact: [phone] * Full Code (Latest Code Status on File) Date Activated Date Inactivated Comments 04/11/2022 7:20 PM 04/13/2022 7:25 PM * Full Code Date Activated Date Inactivated Comments 04/05/2022 9:54 PM 04/11/2022 7:20 PM * Full Code Date Activated Date Inactivated Comments 01/01/2019 7:39 PM 01/14/2019 7:57 PM Care Teams Silver Brazer Relationship Specialty Start Date End Date Thomas Garza MD PCP - General 01/01/19
--- OUTSIDE RECORDS SUMMARY | 2024-11-08 11:07 | XMS_ITS | Referral Summary ---
Author Organization [facility] Address [address] [place] [address] Care Team Providers Care Customs Guard Name Role Phone Thomas Garza MD Primary Care Provider [phone] Encounters Date Type Department Care Team Description 08/26/2024 Orders Only [facility] [place] [address] [place] [address] Jae Fitzpatrick MD 08/23/2024 Telephone [facility] Medical [facility] Cardiology [address] [place] [address] Dennis Hill MD from Last 3 Months Allergies No known [...] 40 mg tabletIndication s:Coronary artery disease involving nez perce coronary artery of nez perce heart without angina pectoris Take 1 tablet [...] (04/09/2022): Added automatically from request for surgery [id number] Morbid (severe) obesity due to excess calories 1 Chronic anticoagulation 07/11/2021 Chronic diastolic heart failure 07/11/2021 Atrial fibrillation 12/14/2020 Low back pain 10/20/2020 Subclavian artery stenosis, left 06/26/2020 Overview (06/26/2020): Added automatically from request for surgery [id number] Hx of CABG 02/16/[address] elevation myocardial infarction (S DAVE) 02/16/2019 Postoperative atrial fibrillation 02/16/2019 Coronary artery disease of n ative heart with stable angina pectoris 01/01/2019 Overview (01/01/2019): Added automatically from request for surgery [id number] Ventricular fibrillation Resolved Problems Problem Noted Date [...] 37.3 C (99.2 F) 02/22/2023 8:15 AM CROSSBAR SWITCH ADJUSTER Respiratory Rate 18 02/22/2023 8:15 AM CROSSBAR SWITCH ADJUSTER Oxygen Saturation 95% 08/04/2024 8:53 AM CDT Inhaled Oxygen Concentration - - Weight 108 kg (238 lb) 08/04/2024 8:53 AM CDT Height 180.3 cm (5' 11) 08/04/2024 8:53 AM CDT Body Mass Index 33.19 08/04/2024 8:53 AM CDT Plan of Treatment Not on file Medical Devices Implanted Type Area Community Health Worker Device Identifier Shelf Expiration Date Model / Serial / Lot [facility], Level One Thoracic, Sterile Plate, Sternal, Lss, Str Implanted:Qty: 1 on 01/01/2019 by Arash Worrell MD at [facility] Plate N/A: Thomas Montoya 06/17/2023 24-039-3 0-72 / / [id number] [employer] 24-023-17 Drill-Free Maxdrive Threadlock Ts 2.3mm 17mm Self Retaining - [id number] Implanted:Qty: 11 on 01/01/2019 by Arash Worrell MD at [facility] N/A: [facility] 24-023-1 7 / / Medtronic Inc Visi-Pro 7mm 27mm 135cm Radiopaque Balloon Expand Radial Strength - [id number] Implanted:Qty: 1 on 06/30/2020 by Dennis Hill MD at [facility] LSN [employer] [id number] -27-135 / / [employer] Yasargil 10.3mm Permanent Mri Safe Nonferromagnetic Spring Latex Free Dq089d - S17vnj - [id number] Implanted:Qty: 1 on 04/11/2022 by Jazz Wilkes MD at [facility] [employer] [id number] 10/11/2031 FE7 84K / 17VNJ / [employer] Vascade Mvp 6-12fr Venous Closure 631-745r-[id number] - [id number] Implanted:Qty: 1 on 02/21/2023 by Dennis Hill MD at [facility] [employer] 10/25/2024 800-612C -10U / / [id number] [employer] Device Clsr Perclose Prostyle Sut-Mediatd Closure-Repair Sys 53866-82 - [id number] Implanted:Qty: 1 on 02/21/2023 by Dennis Hill MD at [facility] [employer] 11/11/2024 43538-54 / / [id number] [employer] Percutaneous Transcatheter Amplatzer Amulet 25mm 7-Vno6-393-025 - [id number] Implanted:Qty: 1 on 02/21/2023 by Dennis Hill MD at [facility] Left: Atrial Appendage [employer] 04/13/2027 9-ACP2-0 / / [id number] Explanted Type Area Community Health Worker Device Identifier Shelf Expiration Date Model / Serial / Lot Medtronic Card Vas Surgery [address] [place] 1.5mm 14mm Radiopaque Bulb Tapered Tip Soft - [id number] Explanted:Qty: 1 on 01/01/2019 at [facility] LSN [employer] 09/11/2021 311 50 / / Medtronic Card [facility] [address] [place] 2mm 14mm Radiopaque Bulb Tapered Tip Soft Intracoronary - [id number] Explanted:Qty: 1 on 01/01/2019 at [facility] [employer] Inc 09/11/2021 312 00 / / [employer] Yasargil 5mm Straight Permanent Cerebral Mini 4mm Opening Clip Latex Free Cm252w - S17lbp - [id number] Explanted:Qty: 1 on 04/11/2022 by Jazz Wilkes MD at [facility] [employer] [id number] 04/23/2031 [id number] / 17LBP / [employer] Yasargil 10.3mm Permanent Mri Safe Nonferromagnetic Spring Latex Free Yj642d - S17aic - [id number] Explanted:Qty: 1 on 04/11/2022 by Jazz Wilkes MD at [facility] [employer] [id number] 02/07/2031 [id number] / 17AIC / Procedures Procedure Name Priority Date/Time Associated Diagnosis Comments CARDIOLOGY DOCUMENT SCAN 08/26/2024 from Last 3 Months Results * Cardiology Document Scan (08/26/2024) Anatomical Region Laterality Modality Other Jae Fitzpatrick MD CV CARDIAC SERVICES PROCEDURES F inal Result from Last 3 Months Insurance [facility] MDCR HMO REF [facility] MEDICARE Address: [facility] [address] [place] [address] [facility] MEDICARE Address: [address] [address] [place] [address] AETNA MEDICARE [facility] MEDICARE ADVANTAGE [facility] MEDIC[facility] Address: [address] [address] [place] [address] Advance Directives For more information, please contact: [phone] * Full Code (Latest Code Status on File) Date Activated Date Inactivated Comments 04/11/2022 7:20 PM 04/13/2022 7:25 PM * Full Code Date Activated Date Inactivated Comments 04/05/2022 9:54 PM 04/11/2022 7:20 PM * Full Code Date Activated Date Inactivated Comments 01/01/2019 7:39 PM 01/14/2019 7:57 PM Care Teams Customs Guard Relationship Specialty Start Date End Date Thomas Garza MD PCP - General 01/01/19
== END 2024-11-08 10:42 | disposition home or self-care (01) ==
LOC: ANHIMG 10:44
PROVIDERS: PCP Family Medicine; Visit Provider Nurse Practitioner Family
DX: Z12.2 Encounter for screening for malignant neoplasm of respiratory organs (principal); J90 Pleural effusion, not elsewhere classified; Z87.891 Personal history of nicotine dependence
CPT/HCPCS: 71271

== ENCOUNTER 2025-01-12 15:15 | Outpatient (CLI) | payer MEDICARE, SELFPAY ==
--- NOTE | ~2025-01-12 | XR_ITS ---
EXAMINATION: XR chest 2V, 01/12/2025 15:28 CDT HISTORY: WORSENING CHRONIC SOB, HX COPD COMPARISON: No comparisons available. Technique: 2 views obtained. Findings: Moderate pulmonary venous congestion. Basilar infiltrates and effusions most marked right lower lobe No pneumothorax. Moderate cardiomegaly. Mediastinal and hilar contours are within normal limits. Poststernotomy. Impression: Bilateral pneumonia Reviewed, dictated and finalized at location P. Impression: Bilateral pneumonia
--- OUTSIDE RECORDS SUMMARY | 2025-01-12 15:19 | XMS_ITS | Encounter Summary ---
Author Organization [facility] Healthcare Address [address] [place] [address] Care Team Providers Care Tool Straightener Name Role Phone Thomas Garza MD Primary Care Provider [phone] Encounter Details Date Type Department Care Team (Late st Contact Info) Description 10/15/2021 Orders Only [facility] [place] Health Information Management [address] [place] [id number] Scanning, Provider Social History Tobacco Use Types Packs/Day Years Used Date Smoking Tobacco: Former Cigarettes Q uit: 2015 Smokeless Tobacco: Never Sex and Gender Information Value Date Recorded Sex Assigned at Not on file Legal Sex Male 11:33 AM CDT Gender Identity Not on file Sexual Orientation Not on file documented as of this encounter Plan of Treatment Not on file documented as of this encounter Procedures Procedure Name Priority Date/Time Associated Diagnosis Comments SCAN - RADIOLOGY/IMAGING 10/15/2021 documented in this encounter Results * SCAN - RADIOLOGY/IMAGING (10/15/2021) Anatomical Region Laterality Modality Other us Provider Scanning Final Result documented in this encounter Visit Diagnoses Not on filedocumented in this encounter Care Teams Tool Straightener Relationship Specialty Start Date End Date Thomas Garza MD PCP - General 01/01/19 documented as of this encounter
--- OUTSIDE RECORDS SUMMARY | 2025-01-12 15:19 | XMS_ITS | Clinical Summary ---
Author Organization [facility] Address [address] [place] [address] Care Team Providers Care Tombstone Polisher Name Role Phone Thomas Garza MD Primary Care Provider [phone] Allergies No known active allergies Medications albuterol [...] WITH CAUTION DUE TO DROWSINESS 024 Active empagliflozin (Jardiance) 10 mg tablet [...] twice daily 180 tablet 2 025 Active atorvastatin (LIPITOR) 40 mg tabletIndication s:Coronary artery disease involving [place] coronary artery of [place] heart without angina pectoris Take 1 tablet by mouth nightly 90 tablet 025 Active furosemide (LASIX) 40 mg tablet Take 1 tablet by mouth twice daily 180 tablet 025 Active clopidogreL (PLAVIX) 75 mg tablet Take 1 tablet by mouth once daily 90 tablet 025 Active atorvastatin (LIPITOR) 40 mg tabletIndication s:Coronary artery disease involving [place] coronary artery of [place] heart without angina pectoris Take 1 tablet by mouth nightly 90 tablet 3 024 2024 Discontinued furosemide (LASIX) 40 mg tablet Take 1 [...] (04/09/2022): Added automatically from request for surgery [id number] Morbid (severe) obesity due to excess calories 1 Chronic anticoagulation 07/11/2021 Chronic diastolic heart failure 07/11/2021 Atrial fibrillation 12/14/2020 Low back pain 10/20/2020 Subclavian artery stenosis, left 06/26/2020 Overview (06/26/2020): Added automatically from request for surgery [id number] Hx of CABG 02/16/[address] elevation myocardial infarction ([facility]) 02/16/2019 Postoperative atrial fibrillation 02/16/2019 Coronary artery disease of n ative heart with stable angina pectoris 01/01/2019 Overview (01/01/2019): Added automatically from request for surgery [id number] Ventricular fibrillation Resolved Problems Problem Noted Date [...] infa rction involving right coronary artery (HCC) 2018 Sleep apnea CPAP with 4 L O2 Coronary artery disease COPD (chronic obstructive pu lmonary disease) Atrial fibrillation (HCC) Chest pain Syncope 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 Dependence on supplemental oxygen 2L , with increase PRN; 4L with CPAP CHF (congestive heart failure) (HCC) Chronic kidney disease Urinary retention urostomy Peripheral vascular disease left carotid Anemia GI bleeding Hypothyroidism Stroke ([facility]) 03/2022 Restless legs syndrome Dry [...] 37.3 C (99.2 F) 02/22/2023 8:15 AM FILE DRAWER FINISHER Respiratory Rate 18 02/22/2023 8:15 AM FILE DRAWER FINISHER Oxygen Saturation 95% 08/04/2024 8:53 AM CDT [...] history exists Medical Devices Implanted Type Area Mail Deliverer Device Identifier Shelf Expiration Date Model / Serial / Lot Von Hugh, Level One Thoracic, Sterile Plate, Sternal, Lss, Str Implanted:Qty: 1 on 01/01/2019 by Arash Worrell MD at [facility] Plate N/A: Sternum [facility] 06/17/2023 [id number] 0-72 / / [id number] [facility] -023-17 Drill-Free Maxdrive Threadlock Ts 2.3mm 17mm Self Retaining - [id number] Implanted:Qty: 11 on 01/01/2019 by Arash Worrell MD at [facility] N/A: Sternum [facility] 24-023-1 7 / / Med[employer] Visi-Pro 7mm 27mm 135cm Radiopaque Balloon Expand Radial Strength - [id number] Implanted:Qty: 1 on 06/30/2020 by Dennis Hill MD at [facility] [employer] [id number] -[id number] / / [employer] Yasargil 10.3mm Permanent Mri Safe Nonferromagnetic Spring Latex Free [id number] - [id number] - [id number] Implanted:Qty: 1 on 04/11/2022 by Jazz Wilkes MD at [facility] [employer] [id number] 10/11/2031 [id number] / [id number] / [employer] Vascade Mvp 6-12fr Venous Closure [id number] - [id number] Implanted:Qty: 1 on 02/21/2023 by Dennis Hill MD at [facility] [employer] 10/25/2024 [id number] / / [id number] [employer] Device Clsr Perclose Prostyle Sut-Mediatd Closure-Repair Sys [id number] - [id number] Implanted:Qty: 1 on 02/21/2023 by Dennis Hill MD at [facility] [employer] 11/11/2024 [id number] / / [id number] [employer] Percutaneous Transcatheter Amplatzer Amulet 25mm [id number] - [id number] Implanted:Qty: 1 on 02/21/2023 by Dennis Hill MD at [facility] Left: Atrial Appendage [employer] 04/13/2027 9-[id number] / / [id number] Explanted Type Area Mail Deliverer Device Identifier Shelf Expiration Date Model / Serial / Lot Medtronic Card Vas Surgery [address] [place] 1.5mm 14mm Radiopaque Bulb Tapered Tip Soft - [id number] Explanted:Qty: 1 on 01/01/2019 at [facility] [employer] 09/11/2021 [id number] / / Medtronic Card Vas Surgery [address] [place] 2mm 14mm Radiopaque Bulb Tapered Tip Soft Intracoronary - [id number] Explanted:Qty: 1 on 01/01/2019 at [facility] [employer] 09/11/2021 312 00 / / [employer] Yasargil 5mm Straight Permanent Cerebral Mini 4mm Opening Clip Latex Free [id number] - [id number] - [id number] Explanted:Qty: 1 on 04/11/2022 by Jazz Wilkes MD at [facility] [employer] [id number] 04/23/2031 [id number] / [id number] / [employer] Yasargil 10.3mm Permanent Mri Safe Nonferromagnetic Spring Latex Free [id number] - [id number] - [id number] Explanted:Qty: 1 on 04/11/2022 by Jazz Wilkes MD at [facility] [employer] [id number] 02/07/2031 [id number] / [id number] / Insurance [facility] MDCR HMO REF [facility] MEDICARE [facility] [place] [address] Advance Directives For more information, please contact: [phone] * Full Code (Latest Code Status on File) Date Activated Date Inactivated Comments 04/11/2022 7:20 PM 04/13/2022 7:25 PM * Full Code Date Activated Date Inactivated Comments 04/05/2022 9:54 PM 04/11/2022 7:20 PM * Full Code Date Activated Date Inactivated Comments 01/01/2019 7:39 PM 01/14/2019 7:57 PM Care Teams Tombstone Polisher Relationship Specialty Start Date End Date Thomas Garza MD PCP - General 01/01/19
--- OUTSIDE RECORDS SUMMARY | 2025-01-12 15:19 | XMS_ITS | Encounter Summary ---
Author Organization [facility] Healthcare Address [address] [place] [address] Care Team Providers Care Benzene Worker Name Role Phone Thomas Garza MD Primary Care Provider [phone] Encounter Details Date Type Department Care Team (Late st Contact Info) Description 08/26/2024 Orders Only [facility] [place] Management [address] [place] [id number] Jae Fitzpatrick MD [address] [place] [address] Social History Tobacco Use Types [...] on filedocumented in this encounter Care Teams Benzene Worker Relationship Specialty Start Date End Date Thomas Garza MD PCP - General 01/01/19 documented as of this encounter
== END 2025-01-12 15:16 | disposition home or self-care (01) ==
PROVIDERS: PCP Family Medicine; Visit Provider Nurse Practitioner Family
DX: R06.09 Other forms of dyspnea (principal); J18.9 Pneumonia, unspecified organism
CPT/HCPCS: 71046